=== PATIENT | male | born 1960 | race Caucasian/White ===

== ENCOUNTER → 2019-11-04 09:57 | Outpatient (BNVA) | payer BC, SELFPAY | PROVIDERS: Family Provider Family Medicine; PCP Family Medicine; Visit Provider Family Medicine | DX: E11.9 Type 2 diabetes mellitus without complications (principal); Z79.4 Long term (current) use of insulin | CPT/HCPCS: 80053; 80061; 82044; 83036; 85025 ==

== ENCOUNTER → 2020-07-15 08:46 | Outpatient (BNVA) | payer BC, SELFPAY | PROVIDERS: Family Provider Family Medicine; PCP Family Medicine; Visit Provider Family Medicine | DX: E11.65 Type 2 diabetes mellitus with hyperglycemia (principal); I50.32 Chronic diastolic (congestive) heart failure; Z79.4 Long term (current) use of insulin | CPT/HCPCS: 80053; 80061; 81015; 82043; 83036 ==

== ENCOUNTER 2021-12-02 15:01 | Observation (INO) | payer MEDICARE, SELFPAY ==
[2021-12-02] VITALS (22 sets, daily range): BP systolic 55–143; BP diastolic 36–98; PULSE 64–124; RESP 22–32; TEMP 36.3; O2SAT 92–100; BMI 66.2
--- NOTE | 2021-12-02 15:10 | XR_ITS ---
WS: [id number] XR chest 1V portable [id number] REASON FOR EXAM: sob FINDINGS: Mild tortuosity of the thoracic aorta. The heart size at the upper limits of normal. Calcified granulomatous disease in both hemithoraces. There are coarse reticular interstitial densities throughout both lungs with ill-defined areas of elie ency. No acute pulmonary parenchymal or pleural abnormality is identified. Hemidiaphragms are somewhat flattened. XR/XR chest 1V portable [id number] IMPRESSION: No acute chest abnormality. Borderline cardiomegaly. Central lobar emphysema.
[2021-12-02 15:23] LABS: Basophils % 0.2 %; Eosinophils % 0.3 %; Hematocrit 34.6 % (42.0-52.0); Lymphocytes # 1.2 10^3/uL (0.8-4.8); Lymphocytes % 9.5 %; Mean Corpuscular HGB Conc 28.9 g/dL (30.0-36.0); Mean Corpuscular Hemoglobin 29.7 pg (28.0-34.0); Mean Corpuscular Volume 102.7 fl (80-94); Mean Platelet Volume 11.1 fL (7.4-10.4); Monocytes # 0.7 10^3/uL (0.2-0.9); Monocytes % 5.2 %; Neutrophils # 10.62 10^3/uL (1.8-7.7); Neutrophils % 84.5 %; Nucleated Red Blood Cells % 0 %; Platelet Count 231 10^3/cmm (130-400); Red Blood Count 3.37 10^6/uL (4.1-5.3); Red Cell Distribution Width 15.1 % (12.1-15.1); White Blood Count 12.6 10^3/uL (4.0-10.0)
--- NOTE | 2021-12-02 15:41 | W.ED.SOB ---
HPI - SOB/Dyspnea General: Chief Complaint: Shortness of Breath/Dyspnea Stated Complaint: SOB, CHF, COPD Time Seen by Provider: 12/02/21 15:06 Source: patient and EMS Mode of arrival: EMS Limitations: no limitations History of Present Illness: HPI Narrative: 61-year-old male who states that he has been having some shortness of breath worsening today. Patient is morbidly obese does wear 4 L of oxygen at baseline due to his obesity along with congestive heart failure states that some increased swelling patient received 80 mg Lasix in route by EMS they states that it when he got him at home his pulse ox was in the low 80s they turned it up to 6 he denies any cough or fever denies any chest pain. Associated symptoms: Deny abdominal pain, chest pain, fever(s), nausea or vomiting Review of Systems Const: Denies: fever(s), chills, body aches or change in appetite Eyes: Denies: blurry vision or eye discomfort ENMT: Denies: throat pain or dental pain Card: Denies: chest pain Resp: Reports: dyspnea GI: Denies: abdominal pain, nausea, vomiting or diarrhea : Denies: dysuria Musc: Reports: extremity swelling Skin/Breast: Denies: rash Neuro: Denies: headache(s) Psych: Denies: depression Jose/Lymph: Denies: easy bruising All/Imm: Denies: urticaria PFSH ED PFSH: Medical History Atrial fibrillation with controlled ventricular response Benign essential HTN CHF (congestive heart failure) Dyslipidemia Morbid obesity SHERLEY (obstructive sleep apnea) Uncontrolled type 2 diabetes mellitus, with long-term current use of insulin Surgical History S/P appendectomy Family History Mother CAD (coronary artery disease) Atrial fibrillation Father Lung disease Social History Smoking and tobacco status: former smoker Alcohol intake: former Lives independently: Yes Household members: significant other Physical Exam Const: COMMON NORMALS: patient oriented x3 NUTRITIONAL APPEARANCE: obese HENMT: COMMON NORMALS: normocephalic and atraumatic HEAD & SCALP: normocephalic and atraumatic Eye: COMMON NORMALS: Equal, round and reactive pupils present and EOMs intact bilaterally PUPIL: Yes Equal, round and reactive pupils present Neck/C-Spine: COMMON NORMALS: full ROM and supple Chest: COMMONS NORMALS: normal inspection of the chest and normal palpation of entire chest wall Resp: COMMON NORMALS: normal respiratory effort, No retractions, No use of accessory muscles and clear to auscultation bilaterally AUSCULTATION: clear to auscultation bilaterally Cardio: COMMON NORMALS: regular rate, regular rhythm and No murmurs present (Cardio) RATE: regular rate RHYTHM: regular rhythm GI: COMMON NORMALS: Normal to inspection, nondistended, normoactive bowel sounds present, Soft to palpation, non-tender and no masses PALPATION: Yes Soft to palpation Extremity: COMMON NORMALS: full ROM NARRATIVE EXTREMITY EXAM: 2+ edema to lower ex Neuro: COMMON NORMALS: patient oriented x3, moves all extremities and no focal motor deficits Psych: COMMON NORMALS: mental status grossly normal, Normal thought process present and cooperative THOUGHT PROCESS: Normal thought process present Skin: COMMON NORMALS: no rashes or lesions noted and no wounds GENERAL SKIN EXAM: no rashes or lesions noted Course Vital Signs: Vital signs: Vital Signs Pulse Rate 95 12/02/21 16:00 Respiratory Rate 25 H 12/02/21 16:00 Blood Pressure 98/80 12/02/21 16:00 Pulse Oximetry 94 12/02/21 15:45 MDM - SOB/Dyspnea Medical Decision Making Patient presents here with CHF with hypercapnic respiratory failure. His CO2 here is [address] him on BiPAP he is awake and alert he is likely hypercapnic at baseline but he does have some slight acidosis so I do believe he requires admission at this time he has been well-appearing here no signs of pneumonia spoke to hospitalist will admit. Lab Data : 12/02/21 15:14 12/02/21 15:14 Labs/Radiology: Radiology Impressions Chest X-Ray 12/02/21 15:10 IMPRESSION: No acute chest abnormality. Borderline cardiomegaly. Central lobar emphysema. Laboratory Results WBC 12.6 10^3/uL (4.0-10.0) H 12/02/21 15:14 RBC 3.37 10^6/uL (4.1-5.3) L 12/02/21 15:14 Hgb 10.0 g/dL (11.7-16.6) L 12/02/21 15:14 Hct 34.6 % (42.0-52.0) L 12/02/21 15:14 MCV 102.7 fl (80-94) H 12/02/21 15:14 MCH 29.7 pg (28.0-34.0) 12/02/21 15:14 MCHC 28.9 g/dL (30.0-36.0) L 12/02/21 15:14 RDW 15.1 % (12.1-15.1) 12/02/21 15:14 Plt Count 231 10^3/cmm (130-400) 12/02/21 15:14 MPV 11.1 fL (7.4-10.4) H 12/02/21 15:14 Neut % (Auto) 84.5 % 12/02/21 15:14 Lymph % (Auto) 9.5 % 12/02/21 15:14 [place] % (Auto) 5.2 % 12/02/21 15:14 Eos % (Auto) 0.3 % 12/02/21 15:14 Baso % (Auto) 0.2 % 12/02/21 15:14 Neut # (Auto) 10.62 10^3/uL (1.8-7.7) H 12/02/21 15:14 Lymph # (Auto) 1.2 10^3/uL (0.8-4.8) 12/02/21 15:14 [place] # (Auto) 0.7 10^3/uL (0.2-0.9) 12/02/21 15:14 Eos # (Auto) 0.0 10^3/uL (0.0-0.8) 12/02/21 15:14 Baso # (Auto) 0.0 10^3/uL (0.0-0.1) 12/02/21 15:14 Nucleated RBC % (auto) 0 % 12/02/21 15:14 Nucleated RBCs # 0.0 /100WBC 12/02/21 15:14 PT 14.50 SECONDS (12.1-14.9) 12/02/21 15:14 INR 1.10 (0.8-1.2) 12/02/21 15:14 Specimen Type Arterial 12/02/21 17:01 Sample Site Radial, right 12/02/21 17:01 ABG pH 7.32 (7.35-7.45) L 12/02/21 17:01 ABG pCO2 95.7 mmHg (35-45) H* 12/02/21 17:01 ABG pO2 73.7 mmHg (80.0-100.0) L 12/02/21 17:01 ABG HCO3 49.5 mmol/L (22-26) H 12/02/21 17:01 ABG Base Excess 19.6 mmol/L (-2.0-2.0) H 12/02/21 17:01 Jax Test Pos 12/02/21 17:01 Hematocrit 31.8 % (42-52) L 12/02/21 17:01 O2 Delivery Device Nc 12/02/21 17:01 O2 Liters/Min 4.0 % 12/02/21 17:01 FiO2 36.0 % 12/02/21 17:01 Printing Roller Handler ID Gd 12/02/21 17:01 Sodium 143 mmol/L (136-145) 12/02/21 15:14 Potassium 4.9 mmol/L (3.5-5.1) 12/02/21 15:14 Chloride 93 mmol/L (98-107) L 12/02/21 15:14 Carbon Dioxide 45 mmol/L (22-29) H* 12/02/21 15:14 Anion Gap 9.9 (5-19) 12/02/21 15:14 BUN 21 mg/dL (8-23) 12/02/21 15:14 Creatinine 1.0 mg/dL (0.7-1.2) 12/02/21 15:14 GFR Calculation 75.7 mL/min (90-130) L 12/02/21 15:14 Glucose 244 mg/dL (65-115) H 12/02/21 15:14 Calculated Osmolality 307 mOsm/kg (285-295) H 12/02/21 15:14 Calcium 9.3 mg/dL (8.5-10.5) 12/02/21 15:14 Total Bilirubin 0.2 mg/dL (0.15-1.2) 12/02/21 15:14 AST 14 U/L (0-40) 12/02/21 15:14 ALT 20 U/L (0-41) 12/02/21 15:14 Alkaline Phosphatase 104 IU/L (40-130) 12/02/21 15:14 Troponin T Baseline 22 ng/L (0-15) H 12/02/21 15:14 NT-Pro-B Natriuret Pep 1322 pg/mL (0-125) H 12/02/21 15:14 Total Protein 7.1 g/dL (6.6-8.7) 12/02/21 15:14 Albumin 3.7 g/dL (3.5-5.2) 12/02/21 15:14 Globulin 3.4 g/dL (1.3-4.6) 12/02/21 15:14 EKG Data EKG 1: I personally reviewed and interpreted this EKG as follows: EKG Interpretation Date: 12/02/21 EKG interpretation time: 15:21 Interpretation: afib with rvr hr [address] or t wave abnormalities qrs 142 qtc 367 Discharge Plan Discharge Patient Disposition: Admitted As Inpatient Clinical Impression: Acute hypercapnic respiratory failure, CHF (congestive heart failure) Condition: Stable Coding Level of Care Code ED Front Counter Attendant for Chg Fwd Exam Comprehensive
[2021-12-02 15:52] LABS: Alanine Aminotransferase 20 U/L (0-41); Albumin Level 3.7 g/dL (3.5-5.2); Alkaline Phosphatase 104 IU/L (40-130); Anion Gap 9.9 (5-19); Aspartate Amino Transferase 14 U/L (0-40); Blood Urea Nitrogen 21 mg/dL (8-23); Calcium 9.3 mg/dL (8.5-10.5); Chloride 93 mmol/L (98-107); Globulin 3.4 g/dL (1.3-4.6); Glomerular Filtration Rate 75.7 mL/min (90-130); Glucose 244 mg/dL (65-115); NT Pro B Type Natriuretic Pept 1322 pg/mL (0-125); Osmolality Calculated 307 mOsm/kg (285-295); Potassium 4.9 mmol/L (3.5-5.1); Sodium 143 mmol/L (136-145); Total Bilirubin 0.2 mg/dL (0.15-1.2); Total Protein 7.1 g/dL (6.6-8.7)
[2021-12-02 15:53] LABS: Troponin(5th) Baseline 22 ng/L (0-15)
--- NOTE | 2021-12-02 16:06 | PC.PHAR ---
pt state he takes care of his own medications-pt states he takes lisinopril 5mg hs ext med history shows last filled 12/01/21 30d/s for 10mg hs-pt states he stop taking his toujeo max u-300 on states he thinks he was having a reaction to it pt states he was taking levemir flextouch u-100-notes are made in the pharmacy comments
[2021-12-02 16:18] LABS: Carbon Dioxide 45 mmol/L (22-29)
[2021-12-02] MEDS: metoprolol tartrate 25 mg Tablet 50 MG PO (17:08)
[2021-12-02 17:15] LABS: ABG PCO2 95.7 mmHg (35-45); ABG PH Result 7.32 (7.35-7.45); Arterial Blood Gas Hematocrit 31.8 % (42-52); Base Excess ABG 19.6 mmol/L (-2.0-2.0); Blood Gas Allen Test Pos; Blood Gas Operator Identificat GD; Blood Gas Sample Site Radial, right; Blood Gas Sample Type Arterial; HCO3 ABG 49.5 mmol/L (22-26); Oxygen Device NC; PO2 ABG 73.7 mmHg (80.0-100.0)
--- NOTE | 2021-12-02 17:18 | ECG_ITS ---
[facility] Test Date: 2021-12-02 Pat Name: Wayne Nicholson Department: Room: Gender: Male Beauty Director: : 1960 Requested By: Danna Neves Order Number: [id number] Marcello MD: Gm Mathis M.D. Measurements Intervals [place] Rate: 98 P: [place]: QRS: 58 QRSD: 140 T: -60 QT: 337 QTc: 431 Interpretive Statements ATRIAL FIBRILLATION INTRAVENTRICULAR CONDUCTION DELAY [130+ ms QRS DURATION] Compared to ECG 12/02/2021 15:21:46 No significant changes Electronically Signed On 12-02-2021 18:37:59 CDT by Gm Mathis M.D. [email or web address] medical [email or web address]/[id number]
[2021-12-02 17:38] LABS: Troponin 5 2HR 23.35 ng/L (0-15)
[2021-12-02 17:43] LABS: Troponin 5 2HR Delta 1.35 ABS# (0-10)
--- NOTE | 2021-12-02 18:33 | PM.HP ---
Providers/Chief Complaint Admitting Physician: Francisco Walls MD Primary Care Provider: Mason Giles MD Chief Complaint: SOB, CHF, COPD History of Present Illness Wayne Nicholson is a 61 year old male who has established history of significant COPD, noncompliance, sleep apnea, oxygen dependent uses 4 L of oxygen at home, ex-smoker, her fianc? is her caregiver present to the hospital for confusion and shortness of breath. As per her caregiver he has been experiencing on and off/passing of any mentation, confusion spells without any fever. He has been experiencing dry cough, worsening of shortness of breath, pursed lip breathing. He walks on his own without any assistance, very noncompliant. In the ER he was diagnosed with hypercapnic respiratory failure with metabolic encephalopathy He was put on BiPAP to Chest x-ray unremarkable Hypercapnic respiratory failure Poorly controlled diabetes Cor pulmonale, right-sided heart failure Review of Systems Const: Reports: body aches and malaise Eyes: Denies: change in vision ENMT: Denies: throat pain Card: Reports: dyspnea on exertion and orthopnea; Denies: chest pain Resp: Denies: dyspnea GI: Denies: abdominal pain : Denies: flank pain Musc: Denies: neck pain Skin/Breast: Reports: lesions Neuro: Denies: headache(s) Psych: Reports: anxiety Endo: Denies: polyuria Jose/Lymph: Denies: easy bruising All/Imm: Denies: urticaria Medications/Allergies Home Medications Medication Instructions Recorded Confirmed Last Taken Type multivitamin 1 tab PO DAILY 05/15/19 12/02/21 Unknown History potassium chloride 20 mEq 20 meq PO BID #180 tabs 07/15/20 12/02/21 12/01/21 Rx tablet,extended release budesonide-formoterol HFA 160 2 puff inhalation Q12H #10.2 grams 08/10/20 12/02/21 Unknown Rx mcg-4.5 mcg/actuation aerosol inhaler (Symbicort) albuterol sulfate 2.5 mg (3 mL) inhalation QID PRN 08/17/20 12/02/21 12/02/21 Rx shortness of breath or wheezing #75 mL concentrator and homefill oxygen #1 ea 09/30/20 12/02/21 Unknown Rx system metoprolol tartrate 100 mg tablet 100 mg PO BID #60 tabs 11/01/20 12/02/21 12/02/21 Rx blood sugar diagnostic #100 ea 03/10/21 12/02/21 Unknown Rx pen needle, diabetic 29 gauge x #100 ea 03/10/21 12/02/21 Unknown Rx 1/2 (Comfort EZ Pen Kimberly) blood-glucose meter (OneTouch #1 ea 03/14/21 12/02/21 Unknown Rx Ultra2 Meter) lancets (OneTouch UltraSoft #100 ea 03/14/21 12/02/21 Unknown Rx Lancets) metformin 1,000 mg tablet 1,000 mg PO BID #180 tabs 04/18/21 12/02/21 12/02/21 Rx blood-glucose meter,continuous #1 ea 06/07/21 12/02/21 Unknown Rx (Dexcom G6 Paint Mixer Machine) blood-glucose sensor (Dexcom G6 #3 ea 06/07/21 12/02/21 Unknown Rx Sensor) blood-glucose transmitter (Dexcom #1 ea 06/07/21 12/02/21 Unknown Rx G6 Transmitter) insulin glargine U-300 conc 300 See Rx Instructions SUBCUT DAILY 09/05/21 12/02/21 11/29/21 Rx unit/mL (3 mL) subcutaneous pen #18 mL (Toujeo Max U-300 SoloStar) apixaban 5 mg tablet (Eliquis) 5 mg PO BID #180 tabs 10/27/21 12/02/21 12/02/21 08:00 Rx albuterol sulfate 90 mcg/actuation 2 puff inhalation Q6H PRN 12/02/21 12/02/21 Unknown History aerosol inhaler (ProAir HFA) Shortness Of Breath atorvastatin 80 mg tablet 80 mg PO QAM 12/02/21 12/02/21 12/02/21 History cholecalciferol (vitamin D3) 50 100 mcg PO DAILY 12/02/21 12/02/21 Unknown History mcg (2,000 unit) tablet (Vitamin D3) digoxin 250 mcg (0.25 mg) tablet 250 mcg PO BEDTIME 12/02/21 12/02/21 12/01/21 History duloxetine 30 mg capsule,delayed 30 mg PO BEDTIME 12/02/21 12/02/21 12/01/21 History release furosemide 40 mg tablet (Lasix) 80 mg PO QAM 12/02/21 12/02/21 12/02/21 History glyburide 5 mg tablet 5 mg PO QAM 12/02/21 12/02/21 12/02/21 History isosorbide mononitrate 30 mg 15 mg PO QAM 12/02/21 12/02/21 12/02/21 History tablet,extended release 24 hr lisinopril 10 mg tablet 5 mg PO BEDTIME 12/02/21 12/02/21 12/01/21 History spironolactone 25 mg tablet 25 mg PO QAM 12/02/21 12/02/21 12/02/21 History Allergies Allergy/AdvReac Type Severity Reaction Status Date / Time No Known Allergies Allergy Verified 12/02/21 15:54 PFSH Acute PFSH: Medical History Atrial fibrillation with controlled ventricular response Benign essential HTN CHF (congestive heart failure) Dyslipidemia Morbid obesity SHERLEY (obstructive sleep apnea) Uncontrolled type 2 diabetes mellitus, with long-term current use of insulin Surgical History S/P appendectomy Family History Mother CAD (coronary artery disease) Atrial fibrillation Father Lung disease Social History Smoking and tobacco status: former smoker Alcohol intake: former Lives independently: Yes Household members: significant other Vitals/I&O/Wt Last Vital Signs Pulse 64 12/02/21 18:02 Resp 29 H 12/02/21 17:45 BP 85/65 12/02/21 17:30 Pulse Ox 94 12/02/21 18:02 FiO2 35 12/02/21 18:02 Weight last 48 hrs Weight 215.456 kg Physical Exam Narrative: Patient was on BiPAP Morbidly obese Morbid obesity with excessive abdominal folds 2+ pitting edema of lower extremity Unkept appearance Poor airflow of lungs bilaterally Mild wheezing Nonfocal neuro exam Family at the bedside Data : 12/03/21 04:36 12/03/21 04:36 A&P Assessment and plan (1) Acute hypercapnic respiratory failure: Status: Acute (2) CHF (congestive heart failure): Status: Acute (3) Dyslipidemia: Status: Acute (4) Diabetic neuropathy: Status: Acute (5) Bilateral leg weakness: Status: Acute (6) Atrial fibrillation with controlled ventricular response: Status: Acute (7) Uncontrolled type 2 diabetes mellitus, with long-term current use of insulin: Status: Chronic Plan Acute hypercapnic respiratory failure with underlying chronic hypoxic hypercarbic respiratory failure This most likely related to noncompliance He does not use his CPAP He has had multiple sleep studies in the past Will conduct overnight pulse ox study Hypercapnia He might qualify for BiPAP Cor pulmonale Bilateral extremity edema Check BNP, Continue high-dose Lasix Hypertension: Continue lisinopril History of A. fib, continue digoxin and Eliquis Check digoxin level Continue metoprolol Poorly controlled type 2 diabetes check A1c level, high-dose insulin to be continued with sliding scale Hold metformin Full code Noncompliant Consistent carb diet Arrange BiPAP, high risk case manager will be updated Attestations Medical Necessity Statement*: Aspirin discharge within 48 hours for management of hypercapnic respiratory failure Time Spent in Patient Care: 40 Coding Level of Care Code Acute Epic [facility] Fwd Diagnoses Acute hypercapnic respiratory failure J96.02 CHF (congestive heart failure) I50.9 Dyslipidemia E78.5 Diabetic neuropathy E11.40 Bilateral leg weakness R29.898 Atrial fibrillation with controlled ventricular response I48.91 Uncontrolled type 2 diabetes mellitus, with long-term current use of insulin E11.65; Z79.4
[2021-12-02 19:10] LABS: Procalcitonin 0.08 ng/mL (0-0.5)
[2021-12-02] MEDS: FUROsemide 10 mg/mL SDV 10mL 60 MG IVP (20:37)
[2021-12-02] MEDS: ipratropium-albuterol 3 mL Neb INHALATION (20:46)
[2021-12-02 20:58] LABS: Glucose Point of Care 254 mg/dL (70-110)
--- NOTE | 2021-12-02 21:10 | ECG_ITS ---
[facility] Test Date: 2021-12-02 Pat Name: Wayne Nicholson Department: Room: Gender: Male Glass Furnace Operator: : 1960 Requested By: Danna Neves Order Number: [id number] Marcello MD: Gm Mathis M.D. Measurements Intervals [place] Rate: 117 P: [place]: QRS: 57 QRSD: 142 T: 0 QT: 298 QTc: 416 Interpretive Statements ATRIAL FIBRILLATION WITH RAPID VENTRICULAR RESPONSE INTRAVENTRICULAR CONDUCTION DELAY [130+ ms QRS DURATION] Compared to ECG 01/01/2018 09:15:15 Intraventricular conduction delay now present Incomplete right bundle-branch block no longer present T-wave abnormality no longer present Electronically Signed On 12-02-2021 18:37:13 CDT by Gm Mathis M.D. [email or web address]/store/[id number]
[2021-12-02] MEDS: metoprolol tartrate 25 mg Tablet PO (21:49)
[2021-12-02] MEDS: digoxin 250 mcg Tablet PO (21:50)
[2021-12-02] MEDS: duloxetine 30 mg Capsule PO (21:52)
[2021-12-02] MEDS: potassium chloride ER 20 mEq Tablet PO (21:53)
[2021-12-02 22:22] LABS: Troponin 5 6HR 25.86 ng/L (0-15)
[2021-12-02 22:24] LABS: Troponin 5 6HR Delta 3.86 ng/L (0-12)
[2021-12-02] MEDS: insulin glargine 100 units/1 mL 80 UNIT SUBCUT (22:24)
[2021-12-03] VITALS (11 sets, daily range): BP systolic 108–131; BP diastolic 61–86; PULSE 69–115; RESP 18–26; TEMP 36.6–36.9; O2SAT 91–97
[2021-12-03 04:44] LABS: ABG PH Result 7.39 (7.35-7.45); Arterial Blood Gas Hematocrit 30.5 % (42-52); Base Excess ABG 19.3 mmol/L (-2.0-2.0); Blood Gas Allen Test Pos; Blood Gas Sample Type Arterial; HCO3 ABG 47.4 mmol/L (22-26); PO2 ABG 59.8 mmHg (80.0-100.0)
[2021-12-03 04:45] LABS: Blood Gas Operator Identificat MONRO; Oxygen Device NC
[2021-12-03 04:48] LABS: Blood Gas Sample Site Radial, left
[2021-12-03 04:55] LABS: Basophils % 0.2 %; Hematocrit 36.2 % (42.0-52.0); Hemoglobin 10.4 g/dL (11.7-16.6); Lymphocytes # 0.8 10^3/uL (0.8-4.8); Lymphocytes % 6.2 %; Mean Corpuscular HGB Conc 28.7 g/dL (30.0-36.0); Mean Corpuscular Hemoglobin 29.5 pg (28.0-34.0); Mean Corpuscular Volume 102.8 fl (80-94); Mean Platelet Volume 11.7 fL (7.4-10.4); Monocytes # 0.4 10^3/uL (0.2-0.9); Monocytes % 3.2 %; Neutrophils # 11.97 10^3/uL (1.8-7.7); Neutrophils % 90.1 %; Nucleated Red Blood Cells % 0 %; Platelet Count 246 10^3/cmm (130-400); Red Blood Count 3.52 10^6/uL (4.1-5.3); Red Cell Distribution Width 15.2 % (12.1-15.1); White Blood Count 13.3 10^3/uL (4.0-10.0)
[2021-12-03] MEDS: ipratropium-albuterol 3 mL Neb INHALATION ×2 (04:55→08:30)
[2021-12-03 05:21] LABS: Anion Gap 8.2 (5-19); Blood Urea Nitrogen 28 mg/dL (8-23); C Reactive Protein 26.6 mg/L (0.0-4.9); Calcium 9.2 mg/dL (8.5-10.5); Chloride 91 mmol/L (98-107); Glomerular Filtration Rate 67.8 mL/min (90-130); Glucose 342 mg/dL (65-115); Magnesium 2.3 mg/dL (1.7-2.3); Osmolality Calculated 309 mOsm/kg (285-295); Phosphorus 3.5 mg/dL (2.5-4.5); Potassium 5.2 mmol/L (3.5-5.1); Sodium 140 mmol/L (136-145)
[2021-12-03 05:27] LABS: Carbon Dioxide 46 mmol/L (22-29)
--- NOTE | 2021-12-03 06:23 | PC.NURSE ---
patient having difficulty keeping conversation straight, ex: pt asked where we would like his 02 sat to be and nurse replied 92 or better, later patient confrontational with respiratory therapist stating I am trying to to breath to keep that o2 up lie you wanted, I am trying, nurse intervened and reminded of how conversation really was and who he had the conversation with, patient had been restless throughout the night, moving from one recliner to another causing 02 sat to drop in 70 s, and nursing staff in room with patient to ensure safety, patient got a small amount of sleep and when he awakened he was talking on his phone stating that no one has been checking on him. nurse inquired about conversation and patient stated I was just trying to call my girlfriend but I can't reach her patient wore Bipap for 20 minutes and began removing bipap after that, patient refused to wear bipap due feeling closed in, extensive education given related to effectiveness of bipap and patient's need to wear it, continue to refuse. 02 sat ranges from 88-92 while eyes are closed an drops to 70's when awake, patient mouth breathing. patient wanting sausage, eggs, and toast 4 pieces each for breakfast. patient drank 1100 ml of fluids since admission to floor. nurse educate aout CHF and need to modify and restrict fluid intake.
[2021-12-03 07:04] LABS: Glucose Point of Care 278 mg/dL (70-110)
[2021-12-03 07:12] LABS: ABG PCO2 78.3 mmHg (35-45)
[2021-12-03] MEDS: FUROsemide 10 mg/mL SDV 10mL 60 MG IVP (08:46)
[2021-12-03] MEDS: insulin lispro 100 unit/1 mL SUBCUT ×3 (08:50→17:05)
[2021-12-03] MEDS: cefTRIAXone 1,000 MG in sodium chloride 0.9% (plus) 50 ML 100 MG IV (08:52)
[2021-12-03] MEDS: insulin glargine 100 units/1 mL 90 UNIT SUBCUT (09:01)
[2021-12-03] MEDS: sennosides-docusate Tablet 1 TAB PO (09:01)
[2021-12-03] MEDS: metoprolol tartrate 25 mg Tablet PO ×2 (09:01→17:06)
[2021-12-03] MEDS: apixaban 5 mg Tablet PO ×2 (09:08→17:08)
--- NOTE | 2021-12-03 11:22 | PC.NURSE ---
Pt refuses bi-pap
[2021-12-03 11:41] LABS: Glucose Point of Care 339 mg/dL (70-110)
--- NOTE | 2021-12-03 13:32 | P.PN_ITS ---
Subjective Subjective: Patient is back to his baseline as per his fianc?e was at the bedside Patient wants to go home I have convince patient to stay 1 more day at least ideally he should stay until Sunday, I have updated case investigator to arrange BiPAP for him Overnight significant hypoxia noted He is hypercapnic He is at risk of recurrent admissions and respiratory failure which could be detrimental to his health, it can cause cardiac arrest if it stays untreated Vitals/I&O/Wt Last Vital Signs Temp 98.2 F 12/03/21 11:51 Pulse 115 H 12/03/21 11:51 Resp 22 H 12/03/21 11:51 BP 131/61 12/03/21 11:51 Pulse Ox 92 12/03/21 11:51 O2 Del Method 12/03/21 11:51 O2 Flow Rate 4 12/03/21 08:27 FiO2 35 12/02/21 23:45 12/02/21 12/03/21 12/03/21 22:59 06:59 14:59 Intake Total 120 / 120 1140 / 1260 890 / 890 Balance 120 / 120 1140 / 1260 890 / 890 Weight last 48 hrs Weight 215.456 kg Physical Exam Narrative: Morbidly obese 2+ pitting edema Awake and alert Patient is very anxious and wants to go home Abdomen is soft, morbidly obese Nonfocal neuro exam Currently on 4 L nasal cannula NITO LUO Able to comprehend my questions and answer appropriately Data : 12/03/21 04:36 12/03/21 04:36 A&P Assessment and plan (1) Acute hypercapnic respiratory failure: Status: Acute (2) CHF (congestive heart failure): Status: Acute (3) Uncontrolled type 2 diabetes mellitus, with long-term current use of insulin: Status: Chronic (4) Atrial fibrillation with controlled ventricular response: Status: Acute (5) Diabetic neuropathy: Status: Acute (6) Bilateral leg weakness: Status: Acute (7) CKD stage 2 due to type 2 diabetes mellitus: Status: Acute Plan Acute hypercapnic respiratory failure with underlying chronic hypoxic hypercarbic respite failure Improved No active encephalopathy related to hypercapnia No active signs of infection Patient would qualify for BiPAP, case investigator updated BiPAP active wheezing, however poor airflow Will need outpatient pulmonary follow-up Cor pulmonale I will give him a dose of acetazolamide today and then alternate with Lasix Poorly controlled type 2 diabetes discontinue IV steroids, check A1c level Consistent carb diet Discontinue cardiac diet Patient is noncompliant wants to go home I did tell him that it will be AGAINST MEDICAL ADVICE I would not discharge him over the weekend A. fib RVR continue Eliquis, metoprolol and digoxin Full code Attestations Medical Necessity Statement*: Discharge on Sunday Time Spent in Patient Care: 40 Coding Level of Care Code Acute Sash Installer for g Fwd Diagnoses Acute hypercapnic respiratory failure J96.02 CHF (congestive heart failure) I50.9 Uncontrolled type 2 diabetes mellitus, with long-term current use of insulin E11.65; Z79.4 Atrial fibrillation with controlled ventricular response I48.91 Diabetic neuropathy E11.40 Bilateral leg weakness R29.898 CKD stage 2 due to type 2 diabetes mellitus E11.22; N18.2
[2021-12-03 14:06] LABS: Digoxin 1.3 ng/mL (0.6-1.2)
[2021-12-03] MEDS: acetaZOLAMIDE 250 mg Tablet 500 MG PO (14:10)
[2021-12-03 14:12] LABS: Estmated Average Glucose 214; Hemoglobin A1C 9.1 % (4.0-6.0)
--- NOTE | 2021-12-03 15:08 | PC.NURSE ---
pts significant other requested anxiety med for pt. pt stated, i don't want or need anything for anxiety.
[2021-12-03 16:49] LABS: Glucose Point of Care 349 mg/dL (70-110)
[2021-12-03 20:09] LABS: Glucose Point of Care 233 mg/dL (70-110)
[2021-12-03] MEDS: digoxin 250 mcg Tablet PO (22:22)
[2021-12-03] MEDS: duloxetine 30 mg Capsule PO (22:23)
[2021-12-03] MEDS: insulin glargine 100 units/1 mL 80 UNIT SUBCUT (22:23)
[2021-12-03] MEDS: potassium chloride ER 20 mEq Tablet PO (22:23)
[2021-12-04] VITALS (11 sets, daily range): BP systolic 108–135; BP diastolic 71–80; PULSE 65–109; RESP 16–19; TEMP 36.2–37; O2SAT 93–100
[2021-12-04 04:47] LABS: ABG PH Result 7.29 (7.35-7.45); Arterial Blood Gas Hematocrit 35.1 % (42-52); Base Excess ABG 12.7 mmol/L (-2.0-2.0); Blood Gas Allen Test Pos; Blood Gas Sample Site Radial, left; Blood Gas Sample Type Arterial; HCO3 ABG 42.5 mmol/L (22-26); Oxygen Device NC; PO2 ABG 81.9 mmHg (80.0-100.0)
[2021-12-04 04:58] LABS: ABG PCO2 87.8 mmHg (35-45)
[2021-12-04 06:24] LABS: Basophils # 0.1 10^3/uL (0.0-0.1); Basophils % 0.6 %; Eosinophils # 0.1 10^3/uL (0.0-0.8); Eosinophils % 1.3 %; Hematocrit 35.7 % (42.0-52.0); Hemoglobin 10.9 g/dL (11.7-16.6); Lymphocytes # 2.5 10^3/uL (0.8-4.8); Lymphocytes % 23.7 %; Mean Corpuscular HGB Conc 30.5 g/dL (30.0-36.0); Mean Corpuscular Hemoglobin 29.2 pg (28.0-34.0); Mean Corpuscular Volume 95.7 fl (80-94); Mean Platelet Volume 11.3 fL (7.4-10.4); Monocytes # 0.9 10^3/uL (0.2-0.9); Monocytes % 8.1 %; Neutrophils # 7.02 10^3/uL (1.8-7.7); Nucleated Red Blood Cells % 0 %; Platelet Count 253 10^3/cmm (130-400); Red Blood Count 3.73 10^6/uL (4.1-5.3); Red Cell Distribution Width 15.2 % (12.1-15.1); White Blood Count 10.6 10^3/uL (4.0-10.0)
[2021-12-04 06:47] LABS: Glucose Point of Care 112 mg/dL (70-110)
[2021-12-04 06:49] LABS: Anion Gap 9.9 (5-19); Blood Urea Nitrogen 27 mg/dL (8-23); Calcium 9.3 mg/dL (8.5-10.5); Chloride 97 mmol/L (98-107); Glomerular Filtration Rate 75.7 mL/min (90-130); Glucose 109 mg/dL (65-115); Osmolality Calculated 304 mOsm/kg (285-295); Potassium 3.9 mmol/L (3.5-5.1); Sodium 144 mmol/L (136-145)
[2021-12-04 07:10] LABS: Carbon Dioxide 41 mmol/L (22-29)
[2021-12-04] MEDS: sennosides-docusate Tablet 1 TAB PO (08:53)
[2021-12-04] MEDS: metoprolol tartrate 25 mg Tablet PO ×2 (08:53→17:28)
[2021-12-04] MEDS: apixaban 5 mg Tablet PO ×2 (08:53→17:29)
[2021-12-04] MEDS: insulin glargine 100 units/1 mL 90 UNIT SUBCUT (08:54)
[2021-12-04 11:02] LABS: Glucose Point of Care 186 mg/dL (70-110)
--- NOTE | 2021-12-04 11:51 | P.PN_ITS ---
Subjective Subjective: This morning patient is awake and alert Sitting in a recliner As per the nursing staff he only used BiPAP for 3 hours last night I did encourage patient to stay compliant He is agreeable to stay 1 more day, we are in process of arranging BiPAP for him BiPAP settings 20/10 FiO2 40%, respirate 14 Vitals/I&O/Wt Last Vital Signs Temp 97.4 F L 12/04/21 07:48 Pulse 86 12/04/21 08:00 Resp 16 12/04/21 08:00 BP 135/78 12/04/21 07:48 Pulse Ox 100 12/04/21 08:00 O2 Del Method 12/04/21 08:00 O2 Flow Rate 4 12/04/21 08:00 FiO2 35 12/04/21 02:40 12/03/21 12/04/21 12/04/21 22:59 06:59 14:59 Intake Total 360 / 1250 240 / 240 Balance 360 / 1250 240 / 240 Weight last 48 hrs Weight 215.456 kg Physical Exam Narrative: Patient is morbidly obese Active signs of heart failure 2+ pitting edema of lower extremities Venous is dermatitis Awake and alert Nonfocal neuro exam Bilateral breath sounds diminished No active crackles or wheezing Abdomen is distended nontender Data : 12/04/21 06:12 12/04/21 06:12 A&P Assessment and plan (1) Acute hypercapnic respiratory failure: Status: Acute (2) CHF (congestive heart failure): Status: Acute (3) Dyslipidemia: Status: Acute (4) CKD stage 2 due to type 2 diabetes mellitus: Status: Acute (5) Diabetic neuropathy: Status: Acute (6) Bilateral leg weakness: Status: Acute (7) Atrial fibrillation with controlled ventricular response: Status: Acute (8) Benign essential HTN: Status: Chronic (9) Uncontrolled type 2 diabetes mellitus, with long-term current use of insulin: Status: Chronic Plan Contraction alkalosis improved with use of acetazolamide I would use Lasix for now onwards I would not change the balance that he has achieved Hypercapnic respiratory failure has not improved because of his noncompliance Encourage patient to stay compliant with his BiPAP Respiratory acidosis secondary to hypercapnia We are in process of arranging BiPAP for him It is very important for him to avoid readmissions and avoid CHF exacerbations Overnight significant hypoxemia noted on pulse ox, hypercapnia is evident Diastolic congestive heart failure exacerbation continue Lasix for now Full code Cardiac diet Type 2 diabetes hemoglobin A1c is 9.1 I have added Lantus to his sliding scale A. fib rate controlled, continue eliquis Discharge tomorrow once we set up BiPAP for him Attestations Medical Necessity Statement*: Continue medical management, discharge tomorrow Time Spent in Patient Care: 30 Coding Level of Care Code Acute Straight Cutter Machine for Chg Fwd Diagnoses Acute hypercapnic respiratory failure J96.02 CHF (congestive heart failure) I50.9 Dyslipidemia E78.5 CKD stage 2 due to type 2 diabetes mellitus E11.22; N18.2 Diabetic neuropathy E11.40 Bilateral leg weakness R29.898 Atrial fibrillation with controlled ventricular response I48.91 Benign essential HTN I10 Uncontrolled type 2 diabetes mellitus, with long-term current use of insulin E11.65; Z79.4
[2021-12-04] MEDS: insulin lispro 100 unit/1 mL SUBCUT ×2 (11:55→17:28)
[2021-12-04] MEDS: FUROsemide 40 mg Tablet PO (13:30)
[2021-12-04 17:17] LABS: Glucose Point of Care 219 mg/dL (70-110)
[2021-12-04] MEDS: ziprasidone 20 mg/mL SDV 10 MG IM (18:42)
[2021-12-04] MEDS: duloxetine 30 mg Capsule PO (20:30)
[2021-12-04] MEDS: potassium chloride ER 20 mEq Tablet 40 MEQ PO (20:31)
[2021-12-04 21:03] LABS: Glucose Point of Care 247 mg/dL (70-110)
[2021-12-04] MEDS: insulin glargine 100 units/1 mL 80 UNIT SUBCUT (21:05)
[2021-12-05] VITALS (8 sets, daily range): BP systolic 102–137; BP diastolic 67–81; PULSE 58–106; RESP 16–22; TEMP 36.3–37.1; O2SAT 86–98
[2021-12-05 06:25] LABS: Anion Gap 6.4 (5-19); Blood Urea Nitrogen 26 mg/dL (8-23); Calcium 9.3 mg/dL (8.5-10.5); Chloride 99 mmol/L (98-107); Glomerular Filtration Rate 75.7 mL/min (90-130); Glucose 76 mg/dL (65-115); Osmolality Calculated 302 mOsm/kg (285-295); Potassium 4.4 mmol/L (3.5-5.1); Sodium 144 mmol/L (136-145)
[2021-12-05 06:36] LABS: Glucose Point of Care 56 mg/dL (70-110)
[2021-12-05 06:37] LABS: Carbon Dioxide 43 mmol/L (22-29)
[2021-12-05 07:28] LABS: Glucose Point of Care 87 mg/dL (70-110)
[2021-12-05] MEDS: metoprolol tartrate 25 mg Tablet PO (09:08)
[2021-12-05] MEDS: FUROsemide 40 mg Tablet PO (09:09)
[2021-12-05] MEDS: apixaban 5 mg Tablet PO (09:09)
[2021-12-05] MEDS: sennosides-docusate Tablet 1 TAB PO (09:09)
[2021-12-05] MEDS: insulin glargine 100 units/1 mL 90 UNIT SUBCUT (09:12)
--- NOTE | 2021-12-05 10:35 | PC.CHAP ---
Pastoral Care Encounter/Spiritual Assessment Type of Contact [] Declined police and fire dispatcher visit [] Patient/Family/Request visit [] Outpatient visit [] Follow-up visit [] Physician referral [] Code/Alert x Routine visit [] Staff referral [] Actively dying [] Patient sleeping [] Family support [] [] Out of room [] Palliative care [] [] Receiving care in room [] Pre-surgical visit [] Trauma [] Long length of stay [] ICU visit [] Other: Relational/Emotional Strength [x] Patient feels connected with others/family/visitors/staff [] Distress [] Loneliness/isolation [] Abandonment Spirituality of Patient [x] Person of Ruchi [] Attends Congregational of their Ruchi [x] Believes in Prayer [] Reads Bible or Sabianism materials [] There are Spiritual issues to be addressed Nicking Machine Operator 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 [x] Prayer [x] Active listening [x] Non-anxious presence [] Spiritual/emotional support [] Crisis/trauma care [] Spiritual counseling [] Bereavement support [] Provided bereavement packet [] Provided Bible/devotional materials [] Provided toy/stuffed animal, coloring book to patient or family member [] Provided Communion [] Anointing/Alex [] Salvation [x] Completed spiritual assessment [] Other: Impact on Illness or Injury [] Angry [] Fearful [] Anxious [] Often cries [] Exhaustion [] Unable to work [] Unable to attend catholic [] Unable to walk/stand [] Unable to read [] Unable to drive [] Unable to eat/drink [] Unable to sleep [] Unable to be with family [] Patient intubated [] Other: Summary Time spent with patient 10 min
[2021-12-05 11:12] LABS: Arterial Blood Gas Hematocrit 35.8 % (42-52); Blood Gas Allen Test Pos; Blood Gas Operator Identificat GD; Blood Gas Sample Site Radial, left; Blood Gas Sample Type Arterial; Carboxyhemoglobin 1.3 %THgb (0.4-20.1); HCO3 ABG 39.2 mmol/L (22-26); HGB O2 Sat 96.5 % (95-100); Ionized Calcium Level - ABG 1.2 mmol/L (1.1-1.4); Methemoglobin 0.8 % (0.4-1.5); Oxygen Device NC; Oxygen Saturation ABG 98.5; Potassium Level - ABG 4.5 mmol/L (3.5-5.0); Total Hemoglobin 11.7 g/dL (14-18)
[2021-12-05 11:13] LABS: ABG PCO2 79.5 mmHg (35-45)
[2021-12-05 11:16] LABS: Glucose Point of Care 328 mg/dL (70-110)
[2021-12-05] MEDS: insulin lispro 100 unit/1 mL SUBCUT (11:34)
--- NOTE | 2021-12-05 12:55 | P.PN_ITS ---
Subjective Subjective: Postop this morning was awake and alert however attention span was very short, had a detailed family meeting with his sister and niece Requested ABG which showed hypercapnic respiratory failure Patient is noncompliant with his BiPAP I did tell the family that I would not discharge him from the hospital until BiPAP has been arranged at home which is very important to prevent life- threatening respiratory failure As per the family patient does not want intubation however agreeable for BiPAP use Vitals/I&O/Wt Last Vital Signs Temp 97.7 F 12/05/21 08:00 Pulse 88 12/05/21 12:00 Resp 18 12/05/21 12:00 BP 102/67 12/05/21 12:00 Pulse Ox 93 12/05/21 12:00 O2 Del Method 12/05/21 12:00 O2 Flow Rate 4 12/05/21 11:39 FiO2 30 12/05/21 11:35 12/04/21 12/05/21 12/05/21 22:59 06:59 14:59 Intake Total 300 / 660 120 / 120 Balance 300 / 660 120 / 120 Physical Exam Narrative: Patient is awake and alert Short attention span Able to answer my questions Bilateral breath sounds are diminished No active wheezing Abdomen distended Morbidly obese Family at the bedside No active asterixis Able to answer my questions appropriately Fluid overload Venous stasis dermatitis 2+ pitting edema Data : 12/04/21 06:12 12/05/21 05:18 A&P Assessment and plan (1) Acute hypercapnic respiratory failure: Status: Acute (2) CHF (congestive heart failure): Status: Acute (3) Dyslipidemia: Status: Acute (4) Bilateral leg weakness: Status: Acute (5) Atrial fibrillation with controlled ventricular response: Status: Acute (6) Uncontrolled type 2 diabetes mellitus, with long-term current use of insulin: Status: Chronic Plan Recurrent hypercapnic respiratory failure Underlying chronic hypoxia hypercapnia Patient is not showing signs of compensation yet Requested ABG today which showed hypercapnia Start him on BiPAP Family at the bedside Had detailed discussion regarding the importance of BiPAP and how is it causing cor pulmonale Continue Lasix Significant alkalosis He will need outpatient Dr. Tran follow-up It is very important that he gets home with BiPAP For now I will continue his management Awaiting approval of his BiPAP device Afebrile no leukocytosis Patient does not want intubation however he before chest compressions, ACLS drugs and defibrillation Okay discussed with the patient and his family Sisters might take him to [place] as he has been very noncompliant and gives hard time to his fianc?e Attestations Medical Necessity Statement*: Continue hospitalization Time Spent in Patient Care: 35 Coding Level of Care Code Acute Sand Cutting Machine Operator for Chg Fwd Diagnoses Acute hypercapnic respiratory failure J96.02 CHF (congestive heart failure) I50.9 Dyslipidemia E78.5 Bilateral leg weakness R29.898 Atrial fibrillation with controlled ventricular response I48.91 Uncontrolled type 2 diabetes mellitus, with long-term current use of insulin E11.65; Z79.4
[2021-12-05] MEDS: acetaminophen 500 mg Tablet PO (14:06)
[2021-12-05] MEDS: acetaZOLAMIDE 250 mg Tablet PO (14:06)
--- NOTE | 2021-12-05 15:53 | PM.DCS ---
Discharge Providers Date of Admission: 12/02/21 17:38 Date of Discharge: December 05, 2021 Attending Provider at Admission: Francisco Walls MD Attending Provider at Discharge: Francisco Walls MD Primary Care Provider: Mason Giles MD Diagnoses at Discharge Discharge Diagnosis (1) Acute hypercapnic respiratory failure: Status: Acute (2) CHF (congestive heart failure): Status: Acute (3) Dyslipidemia: Status: Acute (4) Bilateral leg weakness: Status: Acute (5) Atrial fibrillation with controlled ventricular response: Status: Acute (6) Uncontrolled type 2 diabetes mellitus, with long-term current use of insulin: Status: Chronic Reason for Visit Reason for Visit: SOB, CHF, COPD Hospital Course Hospital Course 61-year-old male morbidly obese carries history of oxygen dependent COPD, uses 4 to 5 L at baseline, presented with chief complaint of worsening confusion and shortness of breath. Patient was reluctant to come to the hospital however his fianc?e called 911. In the ER he was diagnosed with acute on chronic hypercapnic respiratory failure. He was put on BiPAP which improved his mentation. Patient was very reluctant and eager to go home however we convinced him to stay until his BiPAP gets approved. For his hypercapnia it is very important that he stays compliant with his BiPAP, multiple family meetings were done to emphasize the importance of BiPAP and compliance. He is at risk of readmissions. He is suffering from cor pulmonale for which she will take Lasix along potassium supplements. Patient at home has not been using his CPAP regularly. He has not seen any supervisor cabinetmaker. I will prescribe him Advair, Spiriva nebulizers, he does have very poor inspiratory flow, I do not think he will tolerate his inhalers, discontinue Symbicort, he does carry history of A. fib for which she requires Eliquis along AV chas blocking agent, high-dose insulin for poorly controlled type 2 diabetes I have discontinued glyburide for risk of hypoglycemia. Outpatient follow-up with Dr. Tran for pulmonary function test. He is at risk of readmissions. Counseling done, patient, his sister, his fianc?e and niece present in the room Physical Exam Narrative: Patient is awake and alert Short attention span Able to answer my questions Bilateral breath sounds are diminished No active wheezing Abdomen distended Morbidly obese Family at the bedside No active asterixis Able to answer my questions appropriately Fluid overload Venous stasis dermatitis 2+ pitting edema Discharge Data Studies Completed and Pending Completed Studies During Hospitalization Category Date Time Status XR chest 1V portable [id number] Stat Exams 12/02/21 15:10 Completed Pending at discharge Category Date Time Status Arterial Blood Gas W/O Coox AM LABS Lab 12/06/21 04:00 Ordered Radiology Impressions Chest X-Ray 12/02/21 15:10 IMPRESSION: No acute chest abnormality. Borderline cardiomegaly. Central lobar emphysema. Laboratory Results WBC 10.6 10^3/uL (4.0-10.0) H 12/04/21 06:12 RBC 3.73 10^6/uL (4.1-5.3) L 12/04/21 06:12 Hgb 10.9 g/dL (11.7-16.6) L 12/04/21 06:12 Hct 35.7 % (42.0-52.0) L 12/04/21 06:12 MCV 95.7 fl (80-94) H D 12/04/21 06:12 MCH 29.2 pg (28.0-34.0) 12/04/21 06:12 MCHC 30.5 g/dL (30.0-36.0) D 12/04/21 06:12 RDW 15.2 % (12.1-15.1) H 12/04/21 06:12 Plt Count 253 10^3/cmm (130-400) 12/04/21 06:12 MPV 11.3 fL (7.4-10.4) H 12/04/21 06:12 Neut % (Auto) 66.0 % 12/04/21 06:12 Lymph % (Auto) 23.7 % 12/04/21 06:12 Grimes % (Auto) 8.1 % 12/04/21 06:12 Eos % (Auto) 1.3 % 12/04/21 06:12 Baso % (Auto) 0.6 % 12/04/21 06:12 Neut # (Auto) 7.02 10^3/uL (1.8-7.7) 12/04/21 06:12 Lymph # (Auto) 2.5 10^3/uL (0.8-4.8) 12/04/21 06:12 Grimes # (Auto) 0.9 10^3/uL (0.2-0.9) 12/04/21 06:12 Eos # (Auto) 0.1 10^3/uL (0.0-0.8) 12/04/21 06:12 Baso # (Auto) 0.1 10^3/uL (0.0-0.1) 12/04/21 06:12 Nucleated RBC % (auto) 0 % 12/04/21 06:12 Nucleated RBCs # 0.0 /100WBC 12/04/21 06:12 PT 14.50 SECONDS (12.1-14.9) 12/02/21 15:14 INR 1.10 (0.8-1.2) 12/02/21 15:14 Specimen Type Arterial 12/05/21 10:55 Sample Site Radial, left 12/05/21 10:55 ABG pH 7.30 (7.35-7.45) L 12/05/21 10:55 ABG pCO2 79.5 mmHg (35-45) H* 12/05/21 10:55 ABG pO2 104.0 mmHg (80.0-100.0) H 12/05/21 10:55 ABG HCO3 39.2 mmol/L (22-26) H 12/05/21 10:55 ABG O2 Saturation 98.5 12/05/21 10:55 ABG Base Excess 10.0 mmol/L (-2.0-2.0) H 12/05/21 10:55 Jax Test Pos 12/05/21 10:55 A-a O2 Gradient Not Reportable 12/05/21 10:55 Hematocrit 35.8 % (42-52) L 12/05/21 10:55 Hgb O2 Saturation 96.5 % (95-100) 12/05/21 10:55 Carboxyhemoglobin 1.3 %THgb (0.4-20.1) 12/05/21 10:55 Methemoglobin 0.8 % (0.4-1.5) 12/05/21 10:55 Total Hemoglobin 11.7 g/dL (14-18) L 12/05/21 10:55 Sodium 141.0 mmol/L (131-143) 12/05/21 10:55 Potassium 4.5 mmol/L (3.5-5.0) 12/05/21 10:55 Glucose 254.0 mg/dL (70-115) H 12/05/21 10:55 Ionized Calcium 1.2 mmol/L (1.1-1.4) 12/05/21 10:55 O2 Delivery Device Nc 12/05/21 10:55 O2 Liters/Min 5.0 % 12/05/21 10:55 FiO2 40.0 % 12/04/21 04:34 Power Manager ID Gd 12/05/21 10:55 Sodium 144 mmol/L (136-145) 12/05/21 05:18 Potassium 4.4 mmol/L (3.5-5.1) 12/05/21 05:18 Chloride 99 mmol/L (98-107) 12/05/21 05:18 Carbon Dioxide 43 mmol/L (22-29) H* 12/05/21 05:18 Anion Gap 6.4 (5-19) 12/05/21 05:18 BUN 26 mg/dL (8-23) H 12/05/21 05:18 Creatinine 1.0 mg/dL (0.7-1.2) 12/05/21 05:18 GFR Calculation 75.7 mL/min (90-130) L 12/05/21 05:18 Glucose 76 mg/dL (65-115) 12/05/21 05:18 POC Glucose 328 mg/dL (70-110) H 12/05/21 10:56 Estimat Average Glucose 214 12/03/21 04:36 Hemoglobin A1c 9.1 % (4.0-6.0) H 12/03/21 04:36 Calculated Osmolality 302 mOsm/kg (285-295) H 12/05/21 05:18 Calcium 9.3 mg/dL (8.5-10.5) 12/05/21 05:18 Phosphorus 3.5 mg/dL (2.5-4.5) 12/03/21 04:36 Magnesium 2.3 mg/dL (1.7-2.3) 12/03/21 04:36 Total Bilirubin 0.2 mg/dL (0.15-1.2) 12/02/21 15:14 AST 14 U/L (0-40) 12/02/21 15:14 ALT 20 U/L (0-41) 12/02/21 15:14 Alkaline Phosphatase 104 IU/L (40-130) 12/02/21 15:14 Troponin T Baseline 22 ng/L (0-15) H 12/02/21 15:14 Troponin T 120 Minute 23.35 ng/L (0-15) H 12/02/21 16:59 Delta Troponin T 1.35 ABS# (0-10) 12/02/21 16:59 Troponin T Hi Sens 6Hr 25.86 ng/L (0-15) H 12/02/21 21:50 Troponin T Hi Sens 6Hr Delta 3.86 ng/L (0-12) 12/02/21 21:50 C-Reactive Protein 26.6 mg/L (0.0-4.9) H 12/03/21 04:36 NT-Pro-B Natriuret Pep 1322 pg/mL (0-125) H 12/02/21 15:14 Total Protein 7.1 g/dL (6.6-8.7) 12/02/21 15:14 Albumin 3.7 g/dL (3.5-5.2) 12/02/21 15:14 Globulin 3.4 g/dL (1.3-4.6) 12/02/21 15:14 Procalcitonin 0.08 ng/mL (0-0.5) 12/02/21 16:59 Digoxin 1.3 ng/mL (0.6-1.2) H 12/03/21 04:36 Vitals Last Vital Signs Temp 97.7 F 12/05/21 08:00 Pulse 88 12/05/21 12:00 Resp 18 12/05/21 12:00 BP 102/67 12/05/21 12:00 Pulse Ox 93 12/05/21 12:00 O2 Del Method 12/05/21 12:00 O2 Flow Rate 4 12/05/21 11:39 FiO2 30 12/05/21 11:35 Discharge Plan Discharge Patient Disposition: Home Health Service Condition: Stable Prescriptions: New Advair HFA 45-21 mcg/actuation HFA aerosol inhaler 2 inh inhalation Q12H Qty: 12 5RF Rx Instructions: administer with spacer Spiriva Respimat 2.5 mcg/actuation mist 2 inh inhalation QAM Qty: 4 5RF Continued multivitamin Tablet 1 tab PO DAILY (DME) Dexcom G6 Garde Manger Misc See Rx Instructions .Route Qty: 1 0RF Rx Instructions: [place] [place]com G[place] Sensor Device See Rx Instructions .Route Qty: 3 3RF Rx Instructions: Check BS 4 times a day. Change every 10 days. [place] [place] Dexcom G6 Transmitter Device See Rx Instructions .Route Qty: 1 3RF Rx Instructions: Change every 90 days. (DME) concentrator and homefill oxygen system See Rx Instructions .Route .MEDSUPPLY Qty: 1 0RF Rx Instructions: As directed metoprolol tartrate 100 mg tablet 100 mg PO BID Qty: 60 6RF [place] [place] pen needle, diabetic [Comfort EZ Pen [place]] 29 gauge x 1/2 needle See Rx Instructions .ROUTE .MEDSUPPLY Qty: 100 3RF Rx Instructions: one daily [place] [place] blood sugar diagnostic Strip See Rx Instructions .ROUTE .MEDSUPPLY Qty: 100 0RF Rx Instructions: twice daily [place] [place] blood-glucose meter [OneTouch Ultra2 Meter] Kit See Rx Instructions .ROUTE .MEDSUPPLY Qty: 1 0RF Rx Instructions: As directed [place] [place] lancets [OneTouch UltraSoft Lancets] Misc See Rx Instructions .ROUTE .MEDSUPPLY Qty: 100 0RF Rx Instructions: As directed metformin 1,000 mg tablet 1,000 mg PO BID Qty: 180 0RF Eliquis 5 mg tablet 5 mg PO BID Qty: 180 0RF ProAir HFA 90 mcg/actuation Hfa Aerosol Inhaler 2 puff INHALATION Q6H PRN (Reason: Shortness Of Breath) Vitamin D3 50 mcg (2,000 unit) Tablet 100 mcg PO DAILY atorvastatin 80 mg tablet 80 mg PO QAM isosorbide mononitrate 30 mg tablet extended release 24 hr 15 mg PO QAM spironolactone 25 mg tablet 25 mg PO QAM lisinopril 10 mg tablet 5 mg PO BEDTIME duloxetine 30 mg capsule,delayed release(DR/EC) 30 mg PO BEDTIME albuterol sulfate 2.5 mg /3 mL (0.083 %) solution for nebulization 2.5 mg INHALATION QID PRN (Reason: shortness of breath or wheezing) Qty: 75 4RF insulin glargine U-300 conc 300 unit/mL (3 mL) insulin pen See Rx Instructions SUBCUT DAILY Qty: 18 12RF Rx Instructions: 90 units subcut in AM and 80 units at night Changed Lasix 40 mg tablet 40 mg PO QAM Qty: 60 3RF potassium chloride 20 mEq tablet extended release 20 meq PO BEDTIME Qty: 60 1RF Discontinued budesonide-formoterol [Symbicort] 160-4.5 mcg/actuation HFA aerosol inhaler 2 puff INHALATION Q12H Qty: 10.2 2RF glyburide 5 mg tablet 5 mg PO QAM digoxin 250 mcg (0.25 mg) tablet 250 mcg PO BEDTIME Discharge Orders: Discharge Order (Routine); Ordered 12/05/21 Ordered By: Francisco Walls Other Ambulatory Orders: DME: BIPAP (Order) Location: None Selected Ordered By: Francisco Walls DME: Oxygen (Order) Location: None Selected Ordered By: Francisco Walls Ref[place]: [facility] [place] [facility] [place]) [Outside] Mason Giles MD [Primary Care Provider] - DatarLoc MD [Physician] - 4-7 days Discharge Diet: Cardiac Discharge Activity: Increase activity as tolerated Patient Instructions: Opioid Safety Discharge Attestations Time Spent in Discharge Care*: less than 30 min Quality Metrics Clinical Quality Measures [ No reported AMI, CVA or VTE this stay] Coding Level of Care Code Acute Chg FW DC note Diagnoses Acute hypercapnic respiratory failure J96.02 CHF (congestive heart failure) I50.9 Dyslipidemia E78.5 Bilateral leg weakness R29.898 Atrial fibrillation with controlled ventricular response I48.91 Uncontrolled type 2 diabetes mellitus, with long-term current use of insulin E11.65; Z79.4
--- NOTE | 2021-12-09 11:46 | PC.SOCIAL ---
GAURI obtained permission from Dr. Walls to call in medications to [facility] under [facility] for Pro Air, Eliquis, Spironolactone, Advair, and Spiriva. These were called in. GAURI updated Joshua with [facility].
--- NOTE | 2021-12-09 11:50 | PC.SOCIAL ---
CM updated patient that medications were called into [facility] in [facility] and that he could come in and pick them up today.
== END 2021-12-05 16:45 | disposition home health service (06) ==
LOC: ER 17:39 → MEDSURG 18:17
PROVIDERS: Admitting Provider Internal Medicine; Emergency Provider Emergency Medicine; PCP Family Medicine; Visit Provider Internal Medicine
DX: J96.02 Acute respiratory failure with hypercapnia (principal); E78.5 Hyperlipidemia, unspecified; R29.898 Other symptoms and signs involving the musculoskeletal system; I48.91 Unspecified atrial fibrillation; E11.65 Type 2 diabetes mellitus with hyperglycemia; I50.32 Chronic diastolic (congestive) heart failure; Z79.4 Long term (current) use of insulin; Z99.81 Dependence on supplemental oxygen; E11.22 Type 2 diabetes mellitus with diabetic chronic kidney disease; I13.0 Hypertensive heart and chronic kidney disease with heart failure and stage 1 through stage 4 chronic kidney disease, or unspecified chronic kidney disease; N18.2 Chronic kidney disease, stage 2 (mild); Z91.19 Patient's noncompliance with other medical treatment and regimen; E66.01 Morbid (severe) obesity due to excess calories; Z68.44 Body mass index [BMI] 60.0-69.9, adult; Z87.891 Personal history of nicotine dependence
CPT/HCPCS: 36415; 36416; 36600; 71045; 80048; 80051; 80053; 80162; 82330; 82803; 82805; 82962; 83036; 83735; 83880; 84100; 84145; 84484; 85025; 85610; 86140; 93005; 94640; 94660; 94664; 94760; 94762; 96361; 96365; 96372; 96375; 99285; G0378; J0696; J1815; J1940; J2920; J3486

== ENCOUNTER 2022-01-30 11:51 | Inpatient (IN) | payer MEDICARE, SELFPAY ==
[2022-01-30] VITALS (24 sets, daily range): BP systolic 74–131; BP diastolic 47–106; PULSE 95–124; RESP 16–28; O2SAT 84–100; BMI 55.7
--- NOTE | 2022-01-30 11:58 | XRR_ITS ---
PROCEDURE INFORMATION: Exam: XR Chest Exam date and time: 01/30/2022 12:11 PM Age: 61 years old Clinical indication: Cough and dyspnea; Additional info: Dyspnea/cough TECHNIQUE: Imaging protocol: Radiologic exam of the chest. Views: 1 view. COMPARISON: CR XR chest 1V portable [id number] 12/02/2021 3:26 PM FINDINGS: Lungs: Unremarkable. No consolidation. Pleural spaces: Unremarkable. No pleural effusion. No pneumothorax. Heart/Mediastinum: Unremarkable. No cardiomegaly. Bones/joints: Unremarkable. XR/XR chest 1V portable [id number] IMPRESSION: No acute findings.
--- NOTE | 2022-01-30 11:59 | ECG_ITS ---
[facility] Test Date: 2022-01-30 Pat Name: Wayne Nicholson Department: Room: ICU12 Gender: Male Qual Field Manager: : 1960 Requested By: Grayson Tam Order Number: [id number] Marcello MD: Gm Mathis M.D. Measurements Intervals [place] Rate: 112 P: CO: QRS: 103 QRSD: 107 T: 133 QT: 296 QTc: 405 Interpretive Statements ATRIAL FIBRILLATION WITH RAPID VENTRICULAR RESPONSE INCOMPLETE RIGHT BUNDLE BRANCH BLOCK [90+ ms QRS DURATION, TERMINAL R IN V1/V2, 40+ ms S IN I/aVL/V4/V5/V6] LATERAL MYOCARDIAL INFARCTION , OF INDETERMINATE AGE [40+ ms Q WAVE AND/OR ST/T ABNORMALITY IN I/aVL/V5/V6] Compared to ECG 12/02/2021 17:18:32 Incomplete right bundle-branch block now present Myocardial infarct finding now present Intraventricular conduction delay no longer present Electronically Signed On 01-30-2022 21:21:24 CDT by Gm Mathis M.D. [id number]
--- NOTE | 2022-01-30 12:02 | ED_ITS ---
HPI - SOB/Dyspnea General: Chief Complaint: Shortness of Breath/Dyspnea Stated Complaint: RESPIRATORY DISTRESS Time Seen by Provider: 01/30/22 11:57 Source: patient Mode of arrival: ambulatory History of Present Illness: HPI Narrative: 61-year-old male presents emergency room complaining of shortness of breath. Arrives via EMS normally is on 6 L by nasal cannula on arrival he is in 80% in acute respiratory distress trialed CPAP gave him nebulizers and terbutaline as well as Decadron in route. He denies any chest pain he does have increasing orthopnea. Is a history of congestive heart failure according to his old records. Minimally productive cough. MD elicited complaint: shortness of breath and cough Pertinent past history: COPD Onset (ago): day(s) Timing: constant Severity: moderate Exacerbating factors: nothing Relieving factors: nothing Known history of: COPD Associated symptoms: Reports orthopnea; Deny abdominal pain, chest pain, fever(s), nausea, palpitations or vomiting Review of Systems Const: Denies: fever(s), chills, body aches, change in appetite, fatigue or malaise ENMT: Denies: throat pain, ear or mastoid pain, nasal discharge or nasal congestion Card: Reports: edema and orthopnea; Denies: chest pain, palpitations, irregular heart rhythm, swelling of feet/ankles or dyspnea on exertion Resp: Denies: dyspnea, productive cough or non-productive cough GI: Reports: bloating; Denies: abdominal pain, nausea, vomiting, hematemesis, coffee ground emesis, diarrhea, constipation, hematochezia or melena : Denies: flank pain, difficulty urinating, dysuria, urinary frequency or urinary urgency Skin/Breast: Denies: rash or pruritus PFSH ED PFSH: Medical History (Updated 01/30/22 @ 14:09 by Grayson Mathur DO) Atrial fibrillation CHF (congestive heart failure) CKD stage 2 due to type 2 diabetes mellitus COPD (chronic obstructive pulmonary disease) Diabetes mellitus, type II Diabetic neuropathy Dyslipidemia Hypertension Morbid obesity SHERLEY (obstructive sleep apnea) Surgical History S/P appendectomy Family History (Updated 01/30/22 @ 14:08 by Kaylee Meng MD) Mother CAD (coronary artery disease) Atrial fibrillation Father Lung disease Unknown Cancer Lung, Breast, Brain Other CHF (congestive heart failure) Social History Smoking and tobacco status: former smoker Alcohol intake: former Substance/Drug Use: former Caregiver/support person: Yes Lives independently: Yes Household members: significant other Physical Exam Const: GENERAL APPEARANCE: cooperative and comfortable ORIENT ATION/CONSCIOUSNESS: Yes awake, Yes oriented to person, Yes oriented to place and Yes oriented to time HENMT: COMMON NORMALS: normocephalic, atraumatic and hearing grossly normal bilaterally HEAD & SCALP: normocephalic and atraumatic Resp: COMMON NORMALS: normal respiratory effort, No retractions, No use of accessory muscles and clear to auscultation bilaterally AUSCULTATION: clear to auscultation bilaterally Cardio: COMMON NORMALS: regular rate, regular rhythm and No murmurs present (Cardio) RATE: regular rate RHYTHM: regular rhythm GI: COMMON NORMALS: Soft to palpation and No hepatosplenomegaly present AUSCULTATION: Yes normoactive bowel sounds PALPATION: Yes Soft to palpation, No Tenderness to palpation present (GI), No Guarding due to palpation present (GI) and Yes No hepatosplenomegaly present Extremity: COMMON NORMALS: normal to inspection, capillary refill normal, no clubbing, cyanosis or edema, no calf tenderness and no pedal edema Neuro: SENSORIUM/ORIENTATION: Yes oriented to person, Yes oriented to place and Yes oriented to time Skin: COMMON NORMALS: no rashes or lesions noted GENERAL SKIN EXAM: no rashes or lesions noted Course Vital Signs: Vital signs: Vital Signs Pulse Rate 109 H 01/30/22 14:03 Respiratory Rate 17 01/30/22 14:03 Blood Pressure 131/106 01/30/22 14:03 Pulse Oximetry 90 01/30/22 13:36 Oxygen Delivery Me thod 01/30/22 13:36 Oxygen Flow Rate 6 01/30/22 11:56 Fraction of Inspir ed Oxygen 50 01/30/22 13:36 MDM - SOB/Dyspnea Medical Decision Making Improved slightly with BiPAP patient has been given Lasix. He will require ICU he is disoriented because of his hypercapnia. He also has hyperkalemia which was treated with albuterol Kayexalate calcium chloride in the department discussed Dr. Meng orders written Medical Records I reviewed the patient's medical records. Lab Data I reviewed the patient's lab results. : 01/30/22 12:03 01/30/22 12:03 Labs/Radiology: Radiology Impressions Chest X-Ray 01/30/22 11:58 IMPRESSION: No acute findings. Laboratory Results WBC 13.5 10^3/uL (4.0-10.0) H 01/30/22 12:03 RBC 2.98 10^6/uL (4.1-5.3) L 01/30/22 12:03 Hgb 8.8 g/dL (11.7-16.6) L 01/30/22 12:03 Hct 30.7 % (42.0-52.0) L 01/30/22 12:03 MCV 103.0 fl (80-94) H 01/30/22 12:03 MCH 29.5 pg (28.0-34.0) 01/30/22 12:03 MCHC 28.7 g/dL (30.0-36.0) L 01/30/22 12:03 RDW 15.6 % (12.1-15.1) H 01/30/22 12:03 Plt Count 285 10^3/cmm (130-400) 01/30/22 12:03 MPV 11.6 fL (7.4-10.4) H 01/30/22 12:03 Neut % (Auto) 86.2 % 01/30/22 12:03 Lymph % (Auto) 6.5 % 01/30/22 12:03 [place] % (Auto) 5.9 % 01/30/22 12:03 Eos % (Auto) 0.6 % 01/30/22 12:03 Baso % (Auto) 0.4 % 01/30/22 12:03 Neut # (Auto) 11.60 10^3/uL (1.8-7.7) H 01/30/22 12:03 Lymph # (Auto) 0.9 10^3/uL (0.8-4.8) 01/30/22 12:03 [place] # (Auto) 0.8 10^3/uL (0.2-0.9) 01/30/22 12:03 Eos # (Auto) 0.1 10^3/uL (0.0-0.8) 01/30/22 12:03 Baso # (Auto) 0.1 10^3/uL (0.0-0.1) 01/30/22 12:03 Nucleated RBC % (auto) 0 % 01/30/22 12:03 Nucleated RBCs # 0.0 /100WBC 01/30/22 12:03 Specimen Type Arterial 01/30/22 12:06 Sample Site Radial, left 01/30/22 12:06 ABG pH 7.32 (7.35-7.45) L 01/30/22 12:06 ABG pCO2 80.5 mmHg (35-45) H* 01/30/22 12:06 ABG pO2 51.7 mmHg (80.0-100.0) L 01/30/22 12:06 ABG HCO3 41.7 mmol/L (22-26) H 01/30/22 12:06 ABG O2 Saturation 86.0 01/30/22 12:06 ABG Base Excess 13.5 mmol/L (-2.0-2.0) H 01/30/22 12:06 Jax Test Pos 01/30/22 12:06 A-a O2 Gradient 14.5 mmHg (5-10) H 01/30/22 12:06 Hematocrit 26.8 % (42-52) L 01/30/22 12:06 Hgb O2 Saturation 85.0 % (95-100) L 01/30/22 12:06 Carboxyhemoglobin 1.6 %THgb (0.4-20.1) 01/30/22 12:06 Methemoglobin < 0.0 % (0.4-1.5) L 01/30/22 12:06 Total Hemoglobin 8.7 g/dL (14-18) L 01/30/22 12:06 Sodium 141.0 mmol/L (131-143) 01/30/22 12:06 Potassium 5.7 mmol/L (3.5-5.0) H 01/30/22 12:06 Glucose 214.0 mg/dL (70-115) H 01/30/22 12:06 Ionized Calcium 1.2 mmol/L (1.1-1.4) 01/30/22 12:06 O2 Delivery Device Nc 01/30/22 12:06 O2 Liters/Min 4.0 % 01/30/22 12:06 FiO2 36.0 % 01/30/22 12:06 Weigh And Charge Worker ID Cak 01/30/22 12:06 Sodium 139 mmol/L (136-145) 01/30/22 12:03 Potassium 5.9 mmol/L (3.5-5.1) H 01/30/22 12:03 Chloride 94 mmol/L (98-107) L 01/30/22 12:03 Carbon Dioxide 41 mmol/L (22-29) H 01/30/22 12:03 Anion Gap 9.9 (5-19) 01/30/22 12:03 BUN 22 mg/dL (8-23) 01/30/22 12:03 Creatinine 1.1 mg/dL (0.7-1.2) 01/30/22 12:03 GFR Calculation 67.8 mL/min (90-130) L 01/30/22 12:03 Glucose 216 mg/dL (65-115) H 01/30/22 12:03 Calculated Osmolality 298 mOsm/kg (285-295) H 01/30/22 12:03 Lactic Acid 1.0 mmol/L (0.5-2.2) 01/30/22 12:49 Calcium 9.1 mg/dL (8.5-10.5) 01/30/22 12:03 Total Bilirubin 0.4 mg/dL (0.15-1.2) 01/30/22 12:03 AST 14 U/L (0-40) 01/30/22 12:03 ALT 15 U/L (0-41) 01/30/22 12:03 Alkaline Phosphatase 104 U/L (40-130) 01/30/22 12:03 Creatine Kinase 71 U/L (39-308) 01/30/22 12:03 Troponin T Baseline 35 ng/L (0-15) H 01/30/22 12:03 NT-Pro-B Natriuret Pep 2048 pg/mL (0-125) H 01/30/22 12:03 Total Protein 6.9 g/dL (6.6-8.7) 01/30/22 12:03 Albumin 3.8 g/dL (3.5-5.2) 01/30/22 12:03 Globulin 3.1 g/dL (1.3-4.6) 01/30/22 12:03 Urine Color Straw (Yellow) 01/30/22 12:49 Urine Appearance Clear (CLEAR) 01/30/22 12:49 Urine pH 5 (5-7) 01/30/22 12:49 Ur Specific [place] 1.010 (1.005-1.030) 01/30/22 12:49 Urine Protein Neg (Negative) 01/30/22 12:49 Urine Glucose (UA) Norm (Normal) 01/30/22 12:49 Urine Ketones Negative (Negative) 01/30/22 12:49 Urine Blood Neg (Negative) 01/30/22 12:49 Urine Nitrate Negative (Negative) 01/30/22 12:49 Urine Bilirubin Neg (Negative) 01/30/22 12:49 Urine Urobilinogen Norm mg/dL (Negative) 01/30/22 12:49 Ur Leukocyte Esterase Negative (Negative) 01/30/22 12:49 Discharge Plan Discharge Patient Disposition: Admitted As Inpatient Clinical Impression: Acute on chronic respiratory failure with hypoxia and hypercapnia, CKD stage 2 due to type 2 diabetes mellitus, Atrial fibrillation, Diabetes mellitus, type II, Chronic anticoagulation, Hypertension, BMI 50.0-59.9, adult, COPD (chronic obstructive pulmonary disease), Difficulty with BiPAP use, SHERLEY (obstructive slee p apnea), Congestive heart failure, Acute exacerbation of chronic obstructive airways disease Condition: Stable Prescriptions: No Action multivitamin Tablet 1 tab PO DAILY (DME) Dexcom G6 Global Engineering Manager Misc See Rx Instructions .Route Qty: 1 0RF Rx Instructions: As directed (DME) Dexcom G6 Sensor Device See Rx Instructions .Route Qty: 3 3RF Rx Instructions: Check BS 4 times a day. Change every 10 days. (DME) Dexcom G6 Transmitter Device See Rx Instructions .Route Qty: 1 3RF Rx Instructions: Change every 90 days. (DME) concentrator and homefill oxygen system See Rx Instructions .Route .MEDSUPPLY Qty: 1 0RF Rx Instructions: As directed (DME) pen needle, diabetic [Comfort EZ Pen [place]] 29 gauge x 1/2 needle See Rx Instructions .ROUTE .MEDSUPPLY Qty: 100 3RF Rx Instructions: one daily (DME) blood sugar diagnostic Strip See Rx Instructions .ROUTE .MEDSUPPLY Qty: 100 0RF Rx Instructions: twice daily (DME) blood-glucose meter [OneTouch Ultra2 Meter] Kit See Rx Instructions .ROUTE .MEDSUPPLY Qty: 1 0RF Rx Instructions: As directed (DME) lancets [OneTouch UltraSoft Lancets] Misc See Rx Instructions .ROUTE .MEDSUPPLY Qty: 100 0RF Rx Instructions: As directed metformin 1,000 mg tablet 1,000 mg PO BID Qty: 180 0RF Eliquis 5 mg tablet 5 mg PO BID Qty: 180 0RF metoprolol tartrate 100 mg tablet 100 mg PO BID Qty: 60 0RF albuterol sulfate [ProAir HFA] 90 mcg/actuation Hfa Aerosol Inhaler 2 puff INHALATION Q6H PRN (Reason: Shortness Of Breath) cholecalciferol (vitamin D3) [Vitamin D3] 50 mcg (2,000 unit) Tablet 100 mcg PO DAILY atorvastatin 80 mg tablet 80 mg PO QAM isosorbide mononitrate 30 mg tablet extended release 24 hr 15 mg PO QAM spironolactone 25 mg tablet 25 mg PO QAM lisinopril 10 mg tablet 5 mg PO BEDTIME Advair HFA 45-21 mcg/actuation HFA aerosol inhaler 2 inh inhalation Q12H Qty: 12 5RF Rx Instructions: administer with spacer furosemide [Lasix] 40 mg tablet 40 mg PO QAM Qty: 60 3RF albuterol sulfate 2.5 mg /3 mL (0.083 %) solution for nebulization 2.5 mg INHALATION QID PRN (Reason: shortness of breath or wheezing) Qty: 75 4RF insulin glargine U-300 conc 300 unit/mL (3 mL) insulin pen See Rx Instructions SUBCUT DAILY Qty: 18 12RF Rx Instructions: 90 units subcut in AM and 80 units at night Vitamin B-12 100 mcg Tablet 100 mcg PO DAILY Vitamin C 500 mg Tablet Extended Release 500 mg PO DAILY duloxetine 60 mg capsule,delayed release(DR/EC) 60 mg PO BEDTIME potassium chloride 20 mEq tablet extended release 10 meq PO BEDTIME Referrals: Mason Giles MD [Primary Care Provider] - Coding Level of Care Code ED Signal Maintenance Technician for Chg Fwd Exam Detailed
[2022-01-30] MEDS: aspirin 81 mg Chew Tablet 324 MG PO (12:04)
[2022-01-30] MEDS: FUROsemide 10 mg/mL SDV 10mL 80 MG IVP (12:06)
[2022-01-30 12:12] LABS: Basophils # 0.1 10^3/uL (0.0-0.1); Basophils % 0.4 %; Eosinophils # 0.1 10^3/uL (0.0-0.8); Eosinophils % 0.6 %; Hematocrit 30.7 % (42.0-52.0); Hemoglobin 8.8 g/dL (11.7-16.6); Lymphocytes # 0.9 10^3/uL (0.8-4.8); Lymphocytes % 6.5 %; Mean Corpuscular HGB Conc 28.7 g/dL (30.0-36.0); Mean Corpuscular Hemoglobin 29.5 pg (28.0-34.0); Mean Platelet Volume 11.6 fL (7.4-10.4); Monocytes # 0.8 10^3/uL (0.2-0.9); Monocytes % 5.9 %; Neutrophils % 86.2 %; Nucleated Red Blood Cells % 0 %; Platelet Count 285 10^3/cmm (130-400); Red Blood Count 2.98 10^6/uL (4.1-5.3); Red Cell Distribution Width 15.6 % (12.1-15.1); White Blood Count 13.5 10^3/uL (4.0-10.0)
[2022-01-30 12:16] LABS: ABG PH Result 7.32 (7.35-7.45); Alveolar-Arterial Oxygen Gradi 14.5 mmHg (5-10); Arterial Blood Gas Hematocrit 26.8 % (42-52); Base Excess ABG 13.5 mmol/L (-2.0-2.0); Blood Gas Allen Test Pos; Blood Gas Operator Identificat CAK; Blood Gas Sample Site Radial, left; Blood Gas Sample Type Arterial; Carboxyhemoglobin 1.6 %THgb (0.4-20.1); HCO3 ABG 41.7 mmol/L (22-26); Ionized Calcium Level - ABG 1.2 mmol/L (1.1-1.4); Methemoglobin < 0.0 % (0.4-1.5); Oxygen Device NC; PO2 ABG 51.7 mmHg (80.0-100.0); Potassium Level - ABG 5.7 mmol/L (3.5-5.0); Total Hemoglobin 8.7 g/dL (14-18)
[2022-01-30 12:18] LABS: ABG PCO2 80.5 mmHg (35-45)
[2022-01-30 12:36] LABS: Troponin(5th) Baseline 35 ng/L (0-15)
[2022-01-30 12:42] LABS: Alanine Aminotransferase 15 U/L (0-41); Albumin Level 3.8 g/dL (3.5-5.2); Alkaline Phosphatase 104 U/L (40-130); Anion Gap 9.9 (5-19); Aspartate Amino Transferase 14 U/L (0-40); Blood Urea Nitrogen 22 mg/dL (8-23); Calcium 9.1 mg/dL (8.5-10.5); Chloride 94 mmol/L (98-107); Creatine Phosphokinase 71 U/L (39-308); Globulin 3.1 g/dL (1.3-4.6); Glomerular Filtration Rate 67.8 mL/min (90-130); Glucose 216 mg/dL (65-115); NT Pro B Type Natriuretic Pept 2048 pg/mL (0-125); Osmolality Calculated 298 mOsm/kg (285-295); Potassium 5.9 mmol/L (3.5-5.1); Sodium 139 mmol/L (136-145); Total Bilirubin 0.4 mg/dL (0.15-1.2); Total Protein 6.9 g/dL (6.6-8.7)
[2022-01-30 12:52] LABS: Carbon Dioxide 41 mmol/L (22-29)
[2022-01-30 12:58] LABS: Add Urine Microscopic? NO; Charge for UA Resulting for Rev
[2022-01-30 13:10] LABS: Bilirubin Urine Neg (Negative); Blood Urine Neg (Negative); Glucose Urine UA Norm (Normal); Ketones Urine Negative (Negative); Leukocyte Esterase Urine Negative (Negative); Nitrate Urine Negative (Negative); Protein Urine Neg (Negative); Urine Appearance Clear (CLEAR); Urine Color Straw (Yellow); Urobilinogen Urine Norm (Negative); pH Urine 5 (5-7)
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
[2022-01-30] MEDS: ziprasidone 20 mg/mL SDV 10 MG IM (13:54)
[2022-01-30] MEDS: calcium chloride 10% Syr 10 mL 1 GM IVP (13:55)
--- NOTE | 2022-01-30 14:01 | P.HP_ITS ---
Providers/Chief Complaint Admitting Physician: Kaylee Meng MD Primary Care Provider: Mason Giles MD Chief Complaint: RESPIRATORY DISTRESS History of Present Illness Wayne Nicholson is a 61 year old male with multiple comorbid medical conditions as noted below. He started feeling bad on Sunday a few days ago. Began with a cough. Initially nonproductive. Cough then became productive of yellowish like sputum but he had a difficult time getting it up. His breathing has become progressively worse over the weekend. He has been more weak and tired and at times confused. All of this has progressively worsened over the last few days. Today he was extremely confused and struggling to breathe prompting EMS to be called. He is normally on 4 L of oxygen or so. Over the weekend he was on 6 L. Initial saturations per EMS were in the 70s in the field. He was brought in on BiPAP without much improvement. He was placed on BiPAP here in the emergency room. Saturations with 70% FiO2 into the low 90s. Patient has received 80 mg of IV Lasix and continuous nebulizer treatment in the ER. He has had difficulty maintaining BiPAP, constantly wanting to take it off. He received 10 mg of Geodon x1 dose due to his degree of confusion. This temporarily seemed to help but then he began to be more confused again. Lord catheter was placed and he has had about 1500 mL output thus far. He continues to feel like he has to urinate. He slid off of the end of the bed onto the floor in the emergency room 1 time when he was trying to get up. The bed had gone into a reverse Trendelenburg position and the positive him on the floor, it was not actually a fall. Still it took 8 people to get him up off the floor and back into the bed. Initial ABG showed 7.32/80/51/41. Repeat ABG several hours later showed 7.32/85/88/43. Oxygen saturation began to drop and with patient's degree of confusion and associated limited cooperation, decision was made to proceed with intubation. This was discussed with his significant other who was present. At the time decision was made oxygen saturations were persistently dropping into the 70s without manual maintenance of BiPAP. Per significant other, no known objective fever although some subjective. No GI symptoms. She ranges medications and he takes them himself. Unclear if he has either taken too many or not taken them lately. He had home health until last week when he was discharged from home health. He will indicate that he uses his BiPAP but may be a couple of times a month is what is recorded. Last hospitalization was in November when he was here for CHF and COPD exacerbations. Review of Systems General: Reports: ROS unobtainable due to medical condition and ROS unobtainable due to mental status Medications/Allergies Home Medications Medication Instructions Recorded Confirmed Last Taken Type multivitamin 1 tab PO DAILY 05/15/19 01/30/22 01/30/22 History concentrator and homefill oxygen #1 ea 09/30/20 01/30/22 Unknown Rx system blood sugar diagnostic #100 ea 03/10/21 01/30/22 Unknown Rx pen needle, diabetic 29 gauge x #100 ea 03/10/21 01/30/22 Unknown Rx 1/2 (Comfort EZ Pen Wilbur) blood-glucose meter (OneTouch #1 ea 03/14/21 01/30/22 Unknown Rx Ultra2 Meter kit) lancets (OneTouch UltraSoft #100 ea 03/14/21 01/30/22 Unknown Rx Lancets) metformin 1,000 mg tablet 1,000 mg PO BID #180 tabs 04/18/21 01/30/22 01/30/22 Rx blood-glucose meter,continuous #1 ea 06/07/21 01/30/22 Unknown Rx (Dexcom G6 Manager Supplier misc) blood-glucose sensor (Dexcom G6 #3 ea 06/07/21 01/30/22 Unknown Rx Sensor device) blood-glucose transmitter (Dexcom #1 ea 06/07/21 01/30/22 Unknown Rx G6 Transmitter device) apixaban 5 mg tablet (Eliquis) 5 mg PO BID #180 tabs 10/27/21 01/30/22 01/30/22 Rx albuterol sulfate 90 mcg/actuation 2 puff inhalation Q6H PRN 12/02/21 01/30/22 01/30/22 History aerosol inhaler (ProAir HFA) Shortness Of Breath atorvastatin 80 mg tablet 80 mg PO QAM 12/02/21 01/30/22 01/30/22 History cholecalciferol (vitamin D3) 50 100 mcg PO DAILY 12/02/21 01/30/22 01/30/22 History mcg (2,000 unit) tablet (Vitamin D3) isosorbide mononitrate 30 mg 15 mg PO QAM 12/02/21 01/30/22 01/30/22 History tablet,extended release 24 hr lisinopril 10 mg tablet 5 mg PO BEDTIME 12/02/21 01/30/22 01/29/22 History spironolactone 25 mg tablet 25 mg PO QAM 12/02/21 01/30/22 01/30/22 History albuterol sulfate 2.5 mg/3 mL 2.5 mg (3 mL) inhalation QID PRN 12/05/21 01/30/22 Unknown Rx (0.083 %) solution for nebulization shortness of breath or wheezing #75 mL fluticasone propionate 45 2 inh inhalation Q12H #12 grams 12/05/21 01/30/22 01/30/22 Rx mcg-salmeterol 21 mcg/actuation HFA inhaler (Advair HFA) furosemide 40 mg tablet (Lasix) 40 mg PO QAM #60 tabs 12/05/21 01/30/22 01/30/22 Rx insulin glargine U-300 conc 300 See Rx Instructions SUBCUT DAILY 12/05/21 01/30/22 01/30/22 Rx unit/mL (3 mL) subcutaneous pen #18 mL metoprolol tartrate 100 mg tablet 100 mg PO BID #60 tabs 01/23/22 01/30/22 01/27/22 Rx ascorbic acid (vitamin C) 500 mg 500 mg PO DAILY 01/30/22 01/30/22 01/30/22 History tablet,extended release (Vitamin C ER) cyanocobalamin (vitamin B-12) 100 100 mcg PO DAILY 01/30/22 01/30/22 01/30/22 History mcg tablet (Vitamin B-12) duloxetine 60 mg capsule,delayed 60 mg PO BEDTIME 01/30/22 01/30/22 01/29/22 History release potassium chloride 20 mEq 10 meq PO BEDTIME 01/30/22 01/30/22 01/29/22 History tablet,extended release Allergies Allergy/AdvReac Type Severity Reaction Status Date / Time No Known Allergies Allergy Verified 01/30/22 12:57 PFSH Acute PFSH: Medical History (Updated 01/30/22 @ 17:23 by Kaylee Meng MD) Atrial fibrillation CHF (congestive heart failure) CKD stage 2 due to type 2 diabetes mellitus COPD (chronic obstructive pulmonary disease) Diabetes mellitus, type II Diabetic neuropathy Dyslipidemia History of echocardiogram 2018 EF 65%. no wall motion abnormalities, Grade III/IV Diastolic Dysfunction; [facility] History of left heart catheterization 2018 normal coronary arteries; performed by Dr Zaman at [facility], [facility] History of right heart catheterization 2018 PCWP 15 mmHg, mean PAP 50 mmHg, responsive to SL NTG with reduction to 39 mmHg, consistent with reversibility; performed by Dr Zaman at [facility], report in [employer] [facility] History of sleep study 2018 Moderate obstructive sleep apnea, exacerbated by REM sleep, nocturnal hypoxia, elevated periodic limb movement index with a normal PLM-arousal index, abnormal sleep architecture related to first night effect, respiratory events and medications; [facility] Hypertension Morbid obesity SHERLEY (obstructive sleep apnea) Surgical History S/P appendectomy Family History (Updated 01/30/22 @ 14:08 by Kaylee Meng MD) Mother CAD (coronary artery disease) Atrial fibrillation Father Lung disease Unknown Cancer Lung, Breast, Brain Other CHF (congestive heart failure) Social History (Updated 01/30/22 @ 14:09 by Kaylee Meng MD) Smoking and tobacco status: former smoker Alcohol intake: former Substance/Drug Use: former Caregiver/support person: Yes Lives independently: Yes Household members: significant other Vitals/I&O/Wt Last Vital Signs Pulse 122 H 01/30/22 13:39 Resp 27 H 01/30/22 13:36 BP 121/74 01/30/22 12:00 Pulse Ox 90 01/30/22 13:36 O2 Del Method 01/30/22 13:36 O2 Flow Rate 6 01/30/22 11:56 FiO2 50 01/30/22 13:36 Weight last 48 hrs Weight 181.437 kg Physical Exam Narrative: Constitutional: Obese, confused, only maintaining BiPAP with encouragement continuously HEENT: Normocephalic, extraocular movements intact, pupils are reactive, conjunctive injected, oropharynx with dry mucous membranes and dried mucus upon intubation later followed by copious clear secretions after intubation Neck: Large but supple Respiratory: Significantly decreased breath sounds on the left compared to the right Cardiovascular: Tachycardic irregular rhythm distant heart sounds Abdomen: Soft, obese, decreased bowel sounds; patient had continuous glucose monitor device in his right lower quadrant which I removed in the presence of his significant other who removed the transmitter herself and took it with her : Edematous appearing scrotal sac, Lord catheter in place Extremities: Both feet are swollen with 2-3+ pitting edema to the lower extremities bilaterally with chronic stasis changes, capillary refill is brisk, mottling to the left arm but not to the lower extremities or right upper extremity Skin: Skin is dry, scattered scratches in different stages of healing, erythema underneath the left breast Neuro: Moves all extremities, strength is equal in right and left upper extremities, sensation appears grossly intact in all extremities, not otherwise cooperative, speech is clear and face is symmetric Psych: Confused and restless Data : 01/30/22 12:03 01/30/22 12:03 Other Labs: Radiology Impressions Chest X-Ray 01/30/22 11:58 IMPRESSION: No acute findings. Laboratory Results WBC 13.5 10^3/uL (4.0-10.0) H 01/30/22 12:03 RBC 2.98 10^6/uL (4.1-5.3) L 01/30/22 12:03 Hgb 8.8 g/dL (11.7-16.6) L 01/30/22 12:03 Hct 30.7 % (42.0-52.0) L 01/30/22 12:03 MCV 103.0 fl (80-94) H 01/30/22 12:03 MCH 29.5 pg (28.0-34.0) 01/30/22 12:03 MCHC 28.7 g/dL (30.0-36.0) L 01/30/22 12:03 RDW 15.6 % (12.1-15.1) H 01/30/22 12:03 Plt Count 285 10^3/cmm (130-400) 01/30/22 12:03 MPV 11.6 fL (7.4-10.4) H 01/30/22 12:03 Neut % (Auto) 86.2 % 01/30/22 12:03 Lymph % (Auto) 6.5 % 01/30/22 12:03 Haralson % (Auto) 5.9 % 01/30/22 12:03 Eos % (Auto) 0.6 % 01/30/22 12:03 Baso % (Auto) 0.4 % 01/30/22 12:03 Neut # (Auto) 11.60 10^3/uL (1.8-7.7) H 01/30/22 12:03 Lymph # (Auto) 0.9 10^3/uL (0.8-4.8) 01/30/22 12:03 Haralson # (Auto) 0.8 10^3/uL (0.2-0.9) 01/30/22 12:03 Eos # (Auto) 0.1 10^3/uL (0.0-0.8) 01/30/22 12:03 Baso # (Auto) 0.1 10^3/uL (0.0-0.1) 01/30/22 12:03 Nucleated RBC % (auto) 0 % 01/30/22 12:03 Nucleated RBCs # 0.0 /100WBC 01/30/22 12:03 Specimen Type Arterial 01/30/22 12:06 Sample Site Radial, left 01/30/22 12:06 ABG pH 7.32 (7.35-7.45) L 01/30/22 12:06 ABG pCO2 80.5 mmHg (35-45) H* 01/30/22 12:06 ABG pO2 51.7 mmHg (80.0-100.0) L 01/30/22 12:06 ABG HCO3 41.7 mmol/L (22-26) H 01/30/22 12:06 ABG O2 Saturation 86.0 01/30/22 12:06 ABG Base Excess 13.5 mmol/L (-2.0-2.0) H 01/30/22 12:06 Jax Test Pos 01/30/22 12:06 A-a O2 Gradient 14.5 mmHg (5-10) H 01/30/22 12:06 Hematocrit 26.8 % (42-52) L 01/30/22 12:06 Hgb O2 Saturation 85.0 % (95-100) L 01/30/22 12:06 Carboxyhemoglobin 1.6 %THgb (0.4-20.1) 01/30/22 12:06 Methemoglobin < 0.0 % (0.4-1.5) L 01/30/22 12:06 Total Hemoglobin 8.7 g/dL (14-18) L 01/30/22 12:06 Sodium 141.0 mmol/L (131-143) 01/30/22 12:06 Potassium 5.7 mmol/L (3.5-5.0) H 01/30/22 12:06 Glucose 214.0 mg/dL (70-115) H 01/30/22 12:06 Ionized Calcium 1.2 mmol/L (1.1-1.4) 01/30/22 12:06 O2 Delivery Device Nc 01/30/22 12:06 O2 Liters/Min 4.0 % 01/30/22 12:06 FiO2 36.0 % 01/30/22 12:06 Junior Accountant Bookkeeper ID Cak 01/30/22 12:06 Sodium 139 mmol/L (136-145) 01/30/22 12:03 Potassium 5.9 mmol/L (3.5-5.1) H 01/30/22 12:03 Chloride 94 mmol/L (98-107) L 01/30/22 12:03 Carbon Dioxide 41 mmol/L (22-29) H 01/30/22 12:03 Anion Gap 9.9 (5-19) 01/30/22 12:03 BUN 22 mg/dL (8-23) 01/30/22 12:03 Creatinine 1.1 mg/dL (0.7-1.2) 01/30/22 12:03 GFR Calculation 67.8 mL/min (90-130) L 01/30/22 12:03 Glucose 216 mg/dL (65-115) H 01/30/22 12:03 Calculated Osmolality 298 mOsm/kg (285-295) H 01/30/22 12:03 Lactic Acid 1.0 mmol/L (0.5-2.2) 01/30/22 12:49 Calcium 9.1 mg/dL (8.5-10.5) 01/30/22 12:03 Total Bilirubin 0.4 mg/dL (0.15-1.2) 01/30/22 12:03 AST 14 U/L (0-40) 01/30/22 12:03 ALT 15 U/L (0-41) 01/30/22 12:03 Alkaline Phosphatase 104 U/L (40-130) 01/30/22 12:03 Creatine Kinase 71 U/L (39-308) 01/30/22 12:03 Troponin T Baseline 35 ng/L (0-15) H 01/30/22 12:03 NT-Pro-B Natriuret Pep 2048 pg/mL (0-125) H 01/30/22 12:03 Total Protein 6.9 g/dL (6.6-8.7) 01/30/22 12:03 Albumin 3.8 g/dL (3.5-5.2) 01/30/22 12:03 Globulin 3.1 g/dL (1.3-4.6) 01/30/22 12:03 Urine Color Straw (Yellow) 01/30/22 12:49 Urine Appearance Clear (CLEAR) 01/30/22 12:49 Urine pH 5 (5-7) 01/30/22 12:49 Ur Specific Stanley 1.010 (1.005-1.030) 01/30/22 12:49 Urine Protein Neg (Negative) 01/30/22 12:49 Urine Glucose (UA) Norm (Normal) 01/30/22 12:49 Urine Ketones Negative (Negative) 01/30/22 12:49 Urine Blood Neg (Negative) 01/30/22 12:49 Urine Nitrate Negative (Negative) 01/30/22 12:49 Urine Bilirubin Neg (Negative) 01/30/22 12:49 Urine Urobilinogen Norm mg/dL (Negative) 01/30/22 12:49 Ur Leukocyte Esterase Negative (Negative) 01/30/22 12:49 Laboratory Tests 01/30/22 14:05 Procalcitonin 0.17 A&P Assessment and plan (1) Acute on chronic respiratory failure with hypoxia and hypercapnia: Requiring Bipap presently Associated with confusion Multifactorial from acute on chronic COPD, CHF and variable compliance with bipap/oxygen after apparent aspiration plus minus effect of mucous plugging in the emergency room as evidenced by left-sided opacities and volume loss on the left on chest x-ray after intubation. Initial chest x-ray was clear. (2) Encephalopathy acute: Secondary to hypoxemia, hypercapnia and possibly infectious source (3) CHF (congestive heart failure): Acute on chronic Normally on furosemide plus potassium, spironolactone and nitrates Qualifiers: Heart failure chronicity: acute on chronic Heart failure type: diastolic Qualified Code(s): I50.33 - Acute on chronic diastolic (congestive) heart failure (4) COPD (chronic obstructive pulmonary disease): Clinically acutely exacerbated Chronically has prescriptions for albuterol, advair Chronically on oxygen generally at 4L bnc at rest but lately requiring 6L Qualifiers: COPD type: COPD with acute exacerbation Qualified Code(s): J44.1 - Chronic obstructive pulmonary disease with (acute) exacerbation (5) Anemia: Chronic macrocytic anemia with baseline hemoglobin around 10 or so, currently with lower hemoglobin, possibly from dilution No reported blood loss No available recent anemia labs but review of old records shows that B12 and folate normal in 2012, iron, percent saturation and ferritin normal in 2019 Qualifiers: Anemia type: unspecified type Qualified Code(s): D64.9 - Anemia, unspecified (6) CKD stage 2 due to type 2 diabetes mellitus: Currently with hyperkalemia At baseline creatinine (7) Hypertension: In addition to beta blockade for atrial fibrillation and diuretics + nitrates for CHF, chronically on lisinopril (8) Atrial fibrillation: Currently with RVR secondary to pulmonary issues Usually on beta blockage for rate control Qualifiers: Atrial fibrillation type: longstanding persistent Qualified Code(s): I48.11 - Longstanding persistent atrial fibrillation (9) Chronic anticoagulation: On Eliquis, secondary to atrial fibrillation (10) Dyslipidemia: Chronically on statin Last lipid panel in 06/2020 showed total cholesterol of 180, LDL 111, HDL 25, TG 169 (11) Diabetes mellitus, type II: Chronically on Insuliln Glargine, metformin A1c 9.1 on 12/03/2021 Qualifiers: Diabetes mellitus complication status: with hyperglycemia Diabetes mellitus assisted insulin use: with vermin exterminator use Qualified Code(s): E11.65 - Type 2 diabetes mellitus with hyperglycemia; Z79.4 - residential (current) use of insulin (12) SHERLEY (obstructive sleep apnea): Has Bipap but inconsistent use, per recent Home Health Discharge, he will report compliance but an alondra has shown use only a couple of times in last month (13) BMI 50.0-59.9, adult: Plan Drop in blood pressure after escalation of sedation in the ER currently felt medication related, improved with adjustments to sedation Lymphedema Chronically on duloxetine Chronically on vitamin C, multivitamin, vitamin D, vitamin B12 Recently discharged from home health services, last week Inpatient admission ICU level care Continue respiratory support with ventilator Breathing treatments with DuoNeb and budesonide Initiate broad-spectrum antibiotics Currently avoiding systemic steroids secondary to diabetes but may have to consider COVID testing, blood cultures, MRSA swab, bacterial antigens Stat lactic acid and blood cultures Holding off on IV fluids presently IV diuresis has been ordered Continue monitoring I's and O's closely, daily weights Lord catheter for close monitoring of urine output in ICU patient Check iron, TIBC, B12, folate, Hemoccult, coagulation studies, repeat H&H in the morning Monitor renal function Kayexalate for hyperkalemia We will continue a lower dose of oral metoprolol via NG tube with supplemental IV metoprolol as needed for tachycardia Currently off of home nitrates and lisinopril secondary to low range blood pressures Hold Eliquis currently in the event that he needs any procedures Lovenox at treatment dose in place of Eliquis monitoring closely for any sign of further drop in hemoglobin, Continue home statin therapy Follow-up pending cardiac enzymes Sliding scale insulin with lower-dose long-acting insulin; normally on 80+ units twice per day PPI for GI prophylaxis Lovenox provided VTE prophylaxis; will also add SCDs Central venous line was placed in the emergency room courtesy of ER physician in the left IJ, secondary to difficulty with IV access peripherally, routine central line care Will evaluate for initiation of feeds, even trophic Glucerna in the morning pending clinical course overnight Anticipate discharge either home plus or minus home health versus even potential need for placement pending on clinical course Supportive care otherwise Plans were discussed with patient's significant other and she was given an opportunity ask questions. Patient did seem to know that he was in the hospital but required repeated reorientation, was not cooperative with wearing BiPAP and was not able to converse about wishes regarding resuscitation before clinical condition worsened. Full code Procedures Intubation Time out performed: Yes Sedative: etomidate Mg given: 80 Paralytic: vecuronium Mg given: 18 Laryngoscope: fiber optic video scope Assist device used: fiber optic device ET tube size: 8 ET tube uncuffed: Yes Tube secured depth (cm): 23 Tube secured location: lips Tube placement confirmation: visualized tube passing through cords, equal breath sounds bilaterally, no breath sounds over epigastrium and color change noted Patient tolerated procedure: well Intubation complications: none Additional comments: Several attempts made at NG/OG tube placement by nursing staff as well as myself including with laryngoscope before successful OG tube placement. Patient had copious amounts of saliva and mucus noted shortly after intubation. No visible vomiting prior to intubation or after. Post intubation chest x-ray with significant opacification of left lung which is drastically changed from chest x-ray upon arrival which was clear. ET tube and NG tube were confirmed to be in appropriate location as well as central venous line. No pneumothorax noted. Central venous line was placed by Dr. Roman in the ER in the left IJ. Attestations Medical Necessity Statement*: Anticipated stay greater than two midnights in a morbidly and a morbidly obese gentleman with acute on chronic respiratory failure with hypoxemia and hypercapnia related to acute on chronic CHF and COPD. Subsequently noted to have volume loss and opacities in the left from mucous plugging plus or minus aspiration. Has comorbid medical issues as described above. Currently requiring respiratory and other clinical support as described. Coding Level of Care Code Acute Combination Man for [facility] Fwd Diagnoses Acute on chronic respiratory failure with hypoxia and hypercapnia J96.21; J96.22 Encephalopathy acute G93.40 CHF (congestive heart failure) I50.33 Heart failure chronicity: acute on chronic Heart failure type: diastolic COPD (chronic obstructive pulmonary disease) J44.1 COPD type: COPD with acute exacerbation Anemia D64.9 Anemia type: unspecified type CKD stage 2 due to type 2 diabetes mellitus E11.22; N18.2 Hypertension I10 Atrial fibrillation I48.11 Atrial fibrillation type: longstanding persistent Chronic anticoagulation Z79.01 Dyslipidemia E78.5 Diabetes mellitus, type II E11.65; Z79.4 Diabetes mellitus complication status: with hyperglycemia Diabetes mellitus vermin exterminator insulin use: with vermin exterminator use SHERLEY (obstructive sleep apnea) G47.33 BMI 50.0-59.9, adult Z68.43
--- NOTE | 2022-01-30 14:30 | ECG_ITS ---
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 Measurements Intervals [place] Rate: 116 P: [place]: QRS: 90 QRSD: 104 T: 37 QT: 292 QTc: 407 Interpretive Statements ATRIAL FIBRILLATION WITH RAPID VENTRICULAR RESPONSE INCOMPLETE RIGHT BUNDLE BRANCH BLOCK [90+ ms QRS DURATION, TERMINAL R IN V1/V2, 40+ ms S IN I/aVL/V4/V5/V6] ABNORMAL RHYTHM ECG Compared to ECG 12/02/2021 17:18:32 Incomplete right bundle-branch block now present Intraventricular conduction delay no longer present For low Electronically Signed On 01-30-2022 21:33:52 CDT by Gm Mathis M.D. [id number]
[2022-01-30 14:39] LABS: Troponin 5 2HR 34.86 ng/L (0-15)
[2022-01-30 14:41] LABS: Troponin 5 2HR Delta -0.14 ABS# (0-10)
[2022-01-30 14:58] LABS: ABG PH Result 7.32 (7.35-7.45); Alveolar-Arterial Oxygen Gradi 22.1 mmHg (5-10); Arterial Blood Gas Hematocrit 26.3 % (42-52); Base Excess ABG 14.5 mmol/L (-2.0-2.0); Blood Gas Allen Test Pos; Blood Gas Operator Identificat CAK; Blood Gas Sample Site Brachial, left; Blood Gas Sample Type Arterial; Carboxyhemoglobin 1.6 %THgb (0.4-20.1); Ionized Calcium Level - ABG 1.4 mmol/L (1.1-1.4); Methemoglobin 0.6 % (0.4-1.5); Oxygen Device BIPAP; Oxygen Saturation ABG 97.1; PO2 ABG 88.7 mmHg (80.0-100.0); Potassium Level - ABG 5.4 mmol/L (3.5-5.0); Total Hemoglobin 8.6 g/dL (14-18)
[2022-01-30] MEDS: vecuronium 10 mg SDV 18 MG IVP ×2 (15:20→17:15)
--- NOTE | 2022-01-30 15:35 | XRR_ITS ---
PROCEDURE INFORMATION: Exam: XR Chest Exam date and time: 01/30/2022 3:49 PM Age: 61 years old Clinical indication: Device placement; Ett placement (vent status); Additional info: Post intubation tube placment TECHNIQUE: Imaging protocol: Radiologic exam of the chest. Views: 1 view. COMPARISON: CR XR chest 1V portable [id number] 01/30/2022 12:11 PM FINDINGS: Tubes, catheters and devices: Endotracheal tube is 4.9 cm above the paco. Left central line is in the SVC. Lungs: There is left lung volume loss and lower lobe opacity present. Possible pneumonia. The upper left lung shows interstitial densities. The findings were not seen on prior examination. Pleural spaces: Unremarkable. No pleural effusion. No pneumothorax. Heart/Mediastinum: Unremarkable. No cardiomegaly. Displaced to the left hemithorax Bones/joints: Unremarkable. XR/XR chest 1V portable [id number] IMPRESSION: 1. Severe volume loss left hemithorax. 2. Left lower lobe opacities are seen new since prior possible pneumonia 3. Endotracheal tube is above the paco 4. Left central line is in the SVC. 5. The right lung is hyperexpanded and clear. 6. The heart and mediastinum are displaced into the left hemithorax.
[2022-01-30 16:53] LABS: Procalcitonin 0.17 ng/mL (0-0.5)
[2022-01-30] MEDS: ipratropium-albuterol 3 mL Neb INHALATION ×2 (17:15→19:52)
[2022-01-30 17:25] LABS: ABG PH Result 7.38 (7.35-7.45); Arterial Blood Gas Hematocrit 26.2 % (42-52); Base Excess ABG 14.9 mmol/L (-2.0-2.0); Blood Gas Allen Test Pos; Blood Gas Operator Identificat CAK; Blood Gas Sample Site Radial, left; Blood Gas Sample Type Arterial; Blood Gas Tidal Volume 0.45; HCO3 ABG 42.1 mmol/L (22-26); Oxygen Device VENT; PO2 ABG 96.6 mmHg (80.0-100.0)
[2022-01-30 17:26] LABS: ABG PCO2 71.2 mmHg (35-45)
[2022-01-30 17:27] LABS: ABG PCO2 84.4 mmHg (35-45)
[2022-01-30] MEDS: propofol 1,000 MG/100 ML INJ 21.77 MG IV (17:27)
[2022-01-30 17:30] LABS: Lactic Sepsis W/Reflex 0.9 mmol/L (0.5-2.2)
--- NOTE | 2022-01-30 17:44 | XRR_ITS ---
PROCEDURE INFORMATION: Exam: XR Chest Exam date and time: 01/30/2022 5:48 PM Age: 61 years old Clinical indication: Other: Og placement; Additional info: Og tube placement TECHNIQUE: Imaging protocol: Radiologic exam of the chest. Views: 1 view. COMPARISON: CR XR chest 1V portable [id number] 01/30/2022 3:49 PM FINDINGS: Tubes, catheters and devices: Endotracheal tube is in satisfactory position. Left jugular central venous catheter tip is in the superior vena cava. Endotracheal tube tip is 5 cm above the paco. Nasogastric tube tip is in the stomach. Lungs: There is increasing atelectasis at the right lung base. There is increase in left pulmonary opacity and volume loss, likely worsening atelectasis. Pleural spaces: Unremarkable. No pleural effusion. No pneumothorax. Heart/Mediastinum: Unremarkable. No cardiomegaly. Bones/joints: Unremarkable. XR/XR chest 1V portable [id number] IMPRESSION: Increasing atelectasis, mild at the right lung base and severe on the left
--- NOTE | 2022-01-30 17:55 | PC.NURSE ---
IV IN R AC REMOVED D/T NON FUNCTIONING
[2022-01-30] MEDS: sodium polystyrene sulfonate 15 gm/60 mL Btl 30 GM PO (18:28)
--- NOTE | 2022-01-30 18:30 | ECG_ITS ---
[facility] Test Date: 2022-01-30 Pat Name: Wayne Nicholson Department: Room: ICU12 Gender: Male Hand Funnel Coater: : 1960 Requested By: Grayson Tam Order Number: [id number] Marcello MD: Gm Mathis M.D. Measurements Intervals [place] Rate: 104 P: MN: QRS: 70 QRSD: 100 T: 30 QT: 300 QTc: 395 Interpretive Statements Atrial fibrillation with rapid ventricular rate LOW QRS VOLTAGE IN PRECORDIAL LEADS [QRS DEFLECTION < 1.0 mV IN CHEST LEADS] INCOMPLETE RIGHT BUNDLE BRANCH BLOCK [90+ ms QRS DURATION, TERMINAL R IN V1/V2, 40+ ms S IN I/aVL/V4/V5/V6] ABNORMAL RHYTHM ECG Compared to ECG 01/30/2022 14:30:21 Low QRS voltage now present Electronically Signed On 01-30-2022 21:35:57 CDT by Gm Mathis M.D. [id number]
[2022-01-30 19:38] LABS: Adenovirus Not Detected (NOT DETECT); Chlamydia Pneumoniae Not Detected (NOT DETECT); Coronavirus 229E,HKU1,NL63,OC4 Not Detected (NOT DETECT); Human Metapneumovirus Not Detected (NOT DETECT); Human Rhinovirus/Enterovirus Not Detected (NOT DETECT); Influenza A Not Detected (NOT DETECT); Influenza A H1 Not Detected (NOT DETECT); Influenza A H1-2009 Not Detected (NOT DETECT); Influenza A H3 Not Detected (NOT DETECT); Influenza B Not Detected (NOT DETECT); Mycoplasma Pneumoniae Not Detected (NOT DETECT); Parainfluenza Virus Type 1 Not Detected (NOT DETECT); Parainfluenza Virus Type 2 Not Detected (NOT DETECT); Parainfluenza Virus Type 3 Not Detected (NOT DETECT); Parainfluenza Virus Type 4 Not Detected (NOT DETECT); Respiratory Syncytial Virus A Not Detected (NOT DETECT); Respiratory Syncytial Virus B Not Detected (NOT DETECT); SARS-COV-2 Not Detected (NOT DETECT)
[2022-01-30] MEDS: budesonide 0.5 mg/2 mL Neb INHALATION (19:52)
[2022-01-30] MEDS: propofol 1,000 MG/100 ML INJ 38.1 MG IV (20:07)
[2022-01-30] MEDS: FUROsemide 10 mg/mL SDV 10mL 60 MG IVP (20:14)
[2022-01-30] MEDS: pantoprazole 40 mg SDV IVP (20:14)
[2022-01-30] MEDS: atorvastatin 40 mg Tablet 80 MG PO (20:15)
[2022-01-30] MEDS: duloxetine 60 mg Capsule PO (20:15)
[2022-01-30] MEDS: enoxaparin 150 mg/mL Syringe SUBCUT (21:16)
[2022-01-30] MEDS: metoprolol tartrate 25 mg Tablet PO (21:16)
[2022-01-30] MEDS: docusate sodium 10 mg/mL (5ml) Liq 100 MG PO (21:17)
[2022-01-30] MEDS: insulin glargine 100 units/1 mL 5 UNIT SUBCUT (21:18)
[2022-01-30] MEDS: insulin lispro 100 unit/1 mL SUBCUT (21:33)
[2022-01-30 21:37] LABS: Glucose Point of Care 234 mg/dL (70-110)
[2022-01-30] MEDS: propofol 1,000 MG/100 ML INJ 43.55 MG IV (22:33)
[2022-01-31] VITALS (72 sets, daily range): BP systolic 79–145; BP diastolic 44–89; PULSE 71–122; RESP 7–20; TEMP 36.4–37.2; O2SAT 84–100
[2022-01-31] MEDS: propofol 1,000 MG/100 ML INJ 43.55 MG IV ×5 (00:36→10:09)
[2022-01-31] MEDS: ipratropium-albuterol 3 mL Neb INHALATION ×5 (03:13→20:07)
[2022-01-31 03:33] LABS: ABG PCO2 57.3 mmHg (35-45); ABG PH Result 7.47 (7.35-7.45); Arterial Blood Gas Hematocrit 25.5 % (42-52); Base Excess ABG 15.6 mmol/L (-2.0-2.0); Blood Gas Allen Test Pos; Blood Gas Sample Site Radial, right; Blood Gas Sample Type Arterial; Blood Gas Tidal Volume 0.45; HCO3 ABG 41.2 mmol/L (22-26); Oxygen Device VENT; PO2 ABG 73.7 mmHg (80.0-100.0)
--- NOTE | 2022-01-31 04:00 | XRR_ITS ---
PROCEDURE INFORMATION: Exam: XR Chest Exam date and time: 01/31/2022 4:43 AM Age: 61 years old Clinical indication: Condition or disease; Lung condition and disease; Other: Right opacities; Additional info: Right opacities, intubated TECHNIQUE: Imaging protocol: Radiologic exam of the chest. Views: 1 view. COMPARISON: CR (CHEST, ) 01/30/2022 5:48 PM FINDINGS: Tubes, catheters and devices: Endotracheal tube terminates approximately 5 cm above the paco. Left IJ central venous catheter terminates in the region of the superior cavoatrial junction. NG tube passes into the stomach. Lungs: Similar atelectasis involving the majority of the left lung. Similar patchy right basilar airspace opacity. Pleural spaces: Possible small bilateral pleural effusions. No pneumothorax. Heart/Mediastinum: There is some leftward mediastinal shift. Bones/joints: Unremarkable. XR/XR chest 1V portable 42005 IMPRESSION: 1. No substantial interval change. There is again complete opacification of the left hemithorax, likely largely due to atelectasis. 2. Similar right basilar airspace disease. 3. Possible small bilateral pleural effusions. 4. Stable positioning of support apparatus.
[2022-01-31 04:28] LABS: INR 1.37 (0.8-1.2)
[2022-01-31 04:29] LABS: Partial Thromboplastin Time 41.4 SECONDS (23.9-36.7)
[2022-01-31 04:41] LABS: Alanine Aminotransferase 15 U/L (0-41); Albumin Level 3.1 g/dL (3.5-5.2); Alkaline Phosphatase 81 U/L (40-130); Anion Gap 13.5 (5-19); Aspartate Amino Transferase 37 U/L (0-40); Blood Urea Nitrogen 31 mg/dL (8-23); Calcium 9.3 mg/dL (8.5-10.5); Carbon Dioxide 39 mmol/L (22-29); Chloride 93 mmol/L (98-107); Globulin 3.1 g/dL (1.3-4.6); Glomerular Filtration Rate 47.4 mL/min (90-130); Glucose 201 mg/dL (65-115); Magnesium 2.1 mg/dL (1.7-2.3); Osmolality Calculated 304 mOsm/kg (285-295); Phosphorus 3.1 mg/dL (2.5-4.5); Potassium 4.5 mmol/L (3.5-5.1); Sodium 141 mmol/L (136-145); Total Bilirubin 0.4 mg/dL (0.15-1.2); Total Protein 6.2 g/dL (6.6-8.7); Uric Acid 7.3 mg/dL (3.4-7.0)
[2022-01-31 04:45] LABS: Procalcitonin 0.24 ng/mL (0-0.5)
[2022-01-31 04:55] LABS: Folate Level 18.2 ng/mL (4.5-32.2)
[2022-01-31 04:57] LABS: Iron 17 ug/dL (59-158); Percent Saturation 8.9 % (20-50); Total Iron Binding Capacity 191 mcg/dl; Unsaturated Iron Binding 174 ug/dL (112-347)
[2022-01-31 05:16] LABS: Vitamin B12 1289 pg/mL (232-1245)
[2022-01-31] MEDS: nystatin powder 15 gm Btl 1 APPLIC TOPICAL ×2 (05:39→18:20)
[2022-01-31] MEDS: pantoprazole 40 mg SDV IVP ×2 (07:58→20:58)
[2022-01-31 08:16] LABS: Glucose Point of Care 210 mg/dL (70-110)
[2022-01-31] MEDS: budesonide 0.5 mg/2 mL Neb INHALATION ×2 (08:34→20:07)
[2022-01-31] MEDS: docusate sodium 10 mg/mL (5ml) Liq 100 MG PO ×2 (10:23→21:03)
[2022-01-31] MEDS: metoprolol tartrate 25 mg Tablet PO ×2 (10:23→21:02)
[2022-01-31] MEDS: FUROsemide 10 mg/mL SDV 10mL 60 MG IVP ×2 (10:23→20:57)
[2022-01-31] MEDS: insulin lispro 100 unit/1 mL SUBCUT ×4 (10:24→21:22)
[2022-01-31] MEDS: enoxaparin 150 mg/mL Syringe SUBCUT ×2 (10:25→21:03)
[2022-01-31] MEDS: insulin glargine 100 units/1 mL 5 UNIT SUBCUT (10:25)
--- NOTE | 2022-01-31 13:46 | P.PN_ITS ---
Subjective Subjective: Intubated, sedated. Visited by his life partner. Vitals/I&O/Wt Last Vital Signs Pulse 110 H 01/31/22 11:31 Resp 16 01/31/22 11:27 BP 123/78 01/31/22 11:00 Pulse Ox 94 01/31/22 11:30 O2 Del Method 01/31/22 11:26 O2 Flow Rate 6 01/30/22 11:56 FiO2 45 01/31/22 11:27 01/30/22 01/31/22 01/31/22 22:59 06:59 14:59 Intake Total 650.000 / 650.000 500 / 1150.000 569.089 / 569.089 Output Total 2300 / 2300 Balance 650.000 / 650.000 -1800 / -1150.000 569.089 / 569.089 Weight last 48 hrs Weight 199.581 kg Weight 181.437 kg Physical Exam Const: GENERAL APPEARANCE: patient mechanically ventilated NUTRITIONAL APPEARANCE: obese morbidly obese Neck/C-Spine: OTHER: Thick LIJ CVC Resp: AUSCULTATION: rhonchi and diminished lung sounds Cardio: COMMON NORMALS: regular rhythm, S1 normal heart sound present, S2 normal heart sound present and No murmurs present (Cardio) RATE: tachycardic RHYTHM: regular rhythm HEART SOUNDS: S1 normal heart sound present and S2 normal heart sound present GI: COMMON NORMALS: Normal to inspection, nondistended, normoactive bowel sounds present and Soft to palpation PALPATION: Yes Soft to palpation OTHER: Large is Extremity: COMMON NORMALS: no joint enlargement GENERAL: Yes edema (2-3+) Skin: OTHER: BL chronic stasis changes Data : 01/30/22 12:03 01/31/22 03:40 Micro: Microbiology 01/30/22 16:55 Blood Culture - Preliminary Blood SPECIMEN COLLECTED 01/30/22 17:10 Blood Culture - Preliminary Blood SPECIMEN COLLECTED A&P Assessment and plan (1) Acute on chronic respiratory failure with hypoxia and hypercapnia: Continued thick secretions, rhonchi, diminished air entry, COPD exacerbation. This morning attempted conservative measures with continued inhaled steroid, duo nebs, chest vest, continues on antibiotic. However, very thick persistent secretions, left hemithorax white out with suspected atelectasis, mucous plugging. Discussed with cardiothoracic surgery with regards to bronchoscopy, discussed also with his jeniffer at bedside. Multifactorial from acute on chronic COPD, CHF and variable compliance with bipap/oxygen after apparent aspiration plus mucous plugging. (2) Encephalopathy acute: Secondary to hypoxemia, hypercapnia and possibly infectious source (3) CHF (congestive heart failure): Acute on chronic Normally on furosemide plus potassium, spironolactone and nitrates Continue IV Lasix, monitor I&O. Renal function. Noted mild JAMES, creatinine 1.5, however, suspect this may have been secondary to transient hypotension as he otherwise appears still volume overloaded. Qualifiers: Heart failure type: diastolic Heart failure chronicity: acute on chronic Qualified Code(s): I50.33 - Acute on chronic diastolic (congestive) heart failure (4) COPD (chronic obstructive pulmonary disease): Severe COPD exacerbation as above. And Solu-Medrol. Chronically has prescriptions for albuterol, advair Chronically on oxygen generally at 4L bnc at rest but lately requiring 6L Qualifiers: COPD type: COPD with acute exacerbation Qualified Code(s): J44.1 - Chronic obstructive pulmonary disease with (acute) exacerbation (5) Anemia: Iron deficiency anemia, B12 normal. Folic acid normal. As microcytic consider follow-up MMA. With iron deficiency anemia depending on the last endoscopic evaluation would benefit from follow-up. Chronic macrocytic anemia with baseline hemoglobin around 10 or so, currently with lower hemoglobin, possibly from dilution No reported blood loss No available recent anemia labs but review of old records shows that B12 and folate normal in 2011, iron, percent saturation and ferritin normal in 2019 Qualifiers: Anemia type: unspecified type Qualified Code(s): D64.9 - Anemia, unspecified (6) CKD stage 2 due to type 2 diabetes mellitus: Currently with hyperkalemia. Received Kayexalate. JAMES on CKD, creatinine up to 1.5, suspect secondary to transient hypotension. He is weaned off pressor. Currently maintaining blood pressure. Hold lisinopril. (7) Hypertension: In addition to beta blockade for atrial fibrillation and diuretics + nitrates for CHF, chronically on lisinopril which is currently on hold (8) Atrial fibrillation: Currently with RVR secondary to pulmonary issues Usually on beta blockage for rate control Eliquis changed to Lovenox. Continue. Qualifiers: Atrial fibrillation type: longstanding persistent Qualified Code(s): I48.11 - Longstanding persistent atrial fibrillation (9) Chronic anticoagulation: On Eliquis, secondary to atrial fibrillation (10) Dyslipidemia: Chronically on statin Last lipid panel in 06/2020 showed total cholesterol of 180, LDL 111, HDL 25, TG 169 (11) Diabetes mellitus, type II: Chronically on Insuliln Glargine, metformin A1c 9.1 on 12/03/2021 Continue sliding scale insulin. I see Toujeo 90 units in a.m., 80 in p.m. Curr ently NPO. Reduced dose of Lantus. 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 shelter use Qualified Code(s): E11.65 - Type 2 diabetes mellitus with hyperglycemia; Z79.4 - skilled nursing (current) use of insulin (12) SHERLEY (obstructive sleep apnea): Has Bipap but inconsistent use, per recent Home Health Discharge, he will report compliance but an alondra has shown use only a couple of times in last month (13) BMI 50.0-59.9, adult: Plan Lymphedema Chronically on duloxetine Chronically on vitamin C, multivitamin, vitamin D, vitamin B12 Recently discharged from home health services, last week Anticipate discharge either home plus or minus home health versus even potential need for placement pending on clinical course Attestations Medical Necessity Statement*: Continue admission for assessment management of hypoxic and hypercapnic respiratory failure with severe exacerbation of PE, pneumonia, aspiration pneumonia, CHF exacerbation and gentleman with BMI 61.4, SHERLEY and additional comorbidities as above. Critical Care Time: The high probability of a clinically significant, sudden or life threatening deterioration of the patient's respiratory, cardiac system(s) required my full and direct attention, intervention and personal management. The critical care time is as shown. This time is in addition to time spent performing any reported procedures but includes the following: x Data and vital sign review and interpretation x Patient assessment, examination and intervention x Documentation x Medication orders and management Critical Care Time (min): 45 Coding Level of Care Code Acute [place] Registered Nurse Rn for Antonette Avila Diagnoses Acute on chronic respiratory failure with hypoxia and hypercapnia J96.21; J96.22 Encephalopathy acute G93.40 CHF (congestive heart failure) I50.33 Heart failure type: diastolic Heart failure chronicity: acute on chronic COPD (chronic obstructive pulmonary disease) J44.1 COPD type: COPD with acute exacerbation Anemia D64.9 Anemia type: unspecified type CKD stage 2 due to type 2 diabetes mellitus E11.22; N18.2 Hypertension I10 Atrial fibrillation I48.11 Atrial fibrillation type: longstanding persistent Chronic anticoagulation Z79.01 Dyslipidemia E78.5 Diabetes mellitus, type II E11.65; Z79.4 Diabetes mellitus complication status: with hyperglycemia 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
[2022-01-31 14:53] LABS: Glucose Point of Care 179 mg/dL (70-110)
--- NOTE | 2022-01-31 14:56 | PM.CONSULT ---
Providers/Reason For Consult Consulting Physician/Specialty*: Dr. Griffin/cardiothoracic surgery Reason for Consult*: Left hemithorax opacification with suspected left lung atelectasis Requesting Physician: Dr. Ortez Attending Physician: Corey Ortez Primary Care Provider: Mason Giles MD History of Present Illness History of Present Illness Wayne Nicholson is a 61 year old male currently sedated and orally intubated in ICU bed 12 after presenting with acute respiratory failure with a history of chronic respiratory failure and CHF. He is required oral intubation and IV sedation and currently is on Primaxin and vancomycin. He is also receiving Lasix twice daily for CHF. His initial relatively clear chest x-ray has now revealed complete opacification of left hemithorax, most consistent with atelectasis or perhaps mucous plugging. As pulmonary services are not readily available, I been consulted for bedside bronchoscopy to assist with assessment and hopefully clearance of the airway. Review of Systems General: Reports: ROS unobtainable due to mental status Narrative: Chart review and upon interview with patient's family, reported chronic O2 dependency usually 3 to 4 L with past several days of increasing dyspnea and easy fatigability and increasing oxygen requirements. No reported fever or productive cough was noted. Medications/Allergies Home Medications Medication Instructions Recorded Confirmed Last Taken Type multivitamin 1 tab PO DAILY 05/15/19 01/30/22 01/30/22 History concentrator and homefill oxygen #1 ea 09/30/20 01/30/22 Unknown Rx system blood sugar diagnostic #100 ea 03/10/21 01/30/22 Unknown Rx pen needle, diabetic 29 gauge x #100 ea 03/10/21 01/30/22 Unknown Rx 1/2 (Comfort EZ Pen [place]) blood-glucose meter (OneTouch #1 ea 03/14/21 01/30/22 Unknown Rx Ultra2 Meter kit) lancets (OneTouch UltraSoft #100 ea 03/14/21 01/30/22 Unknown Rx Lancets) metformin 1,000 mg tablet 1,000 mg PO BID #180 tabs 04/18/21 01/30/22 01/30/22 Rx blood-glucose meter,continuous #1 ea 06/07/21 01/30/22 Unknown Rx (Dexcom G6 Manager Payer misc) blood-glucose sensor (Dexcom G6 #3 ea 06/07/21 01/30/22 Unknown Rx Sensor device) blood-glucose transmitter (Dexcom #1 ea 06/07/21 01/30/22 Unknown Rx G6 Transmitter device) apixaban 5 mg tablet (Eliquis) 5 mg PO BID #180 tabs 10/27/21 01/30/22 01/30/22 Rx albuterol sulfate 90 mcg/actuation 2 puff inhalation Q6H PRN 12/02/21 01/30/22 01/30/22 History aerosol inhaler (ProAir HFA) Shortness Of Breath atorvastatin 80 mg tablet 80 mg PO QAM 12/02/21 01/30/22 01/30/22 History cholecalciferol (vitamin D3) 50 100 mcg PO DAILY 12/02/21 01/30/22 01/30/22 History mcg (2,000 unit) tablet (Vitamin D3) isosorbide mononitrate 30 mg 15 mg PO QAM 12/02/21 01/30/22 01/30/22 History tablet,extended release 24 hr lisinopril 10 mg tablet 5 mg PO BEDTIME 12/02/21 01/30/22 01/29/22 History spironolactone 25 mg tablet 25 mg PO QAM 12/02/21 01/30/22 01/30/22 History albuterol sulfate 2.5 mg/3 mL 2.5 mg (3 mL) inhalation QID PRN 12/05/21 01/30/22 Unknown Rx (0.083 %) solution for nebulization shortness of breath or wheezing #75 mL fluticasone propionate 45 2 inh inhalation Q12H #12 grams 12/05/21 01/30/22 01/30/22 Rx mcg-salmeterol 21 mcg/actuation HFA inhaler (Advair HFA) furosemide 40 mg tablet (Lasix) 40 mg PO QAM #60 tabs 12/05/21 01/30/22 01/30/22 Rx insulin glargine U-300 conc 300 See Rx Instructions SUBCUT DAILY 12/05/21 01/30/22 01/30/22 Rx unit/mL (3 mL) subcutaneous pen #18 mL metoprolol tartrate 100 mg tablet 100 mg PO BID #60 tabs 01/23/22 01/30/22 01/27/22 Rx ascorbic acid (vitamin C) 500 mg 500 mg PO DAILY 01/30/22 01/30/22 01/30/22 History tablet,extended release (Vitamin C ER) cyanocobalamin (vitamin B-12) 100 100 mcg PO DAILY 01/30/22 01/30/22 01/30/22 History mcg tablet (Vitamin B-12) duloxetine 60 mg capsule,delayed 60 mg PO BEDTIME 01/30/22 01/30/22 01/29/22 History release potassium chloride 20 mEq 10 meq PO BEDTIME 01/30/22 01/30/22 01/29/22 History tablet,extended release Allergies Allergy/AdvReac Type Severity Reaction Status Date / Time No Known Allergies Allergy Verified 01/30/22 12:57 Current Medications Generic Name Dose Route Start Last Admin Trade Name Freq PRN Reason Stop Dose Admin Albuterol/Ipratropium 3 ml 01/30/22 16:59 01/31/22 11:23 Ipratropium-Albuterol 3 Ml Neb INHALATION 3 ml Q4H PRN Administration SHORTNESS OF BREATH Albuterol/Ipratropium 3 ml 01/30/22 20:00 01/31/22 14:04 Ipratropium-Albuterol 3 Ml Neb INHALATION 3 ml Q6H.RESP SOLOMON Administration Atorvastatin Calcium 80 mg 01/30/22 21:00 01/30/22 20:15 Atorvastatin 40 Mg Tablet PO 80 mg BEDTIME SOLOMON Administration Budesonide 0.5 mg 01/30/22 20:00 01/31/22 08:34 Budesonide 0.5 Mg/2 Ml Neb INHALATION 0.5 mg BID.RESPIRATORY SOLOMON Administration Docusate Sodium 100 mg 01/30/22 21:00 01/31/22 10:23 Docusate Sodium 10 Mg/Ml (5ml) Liq PO 100 mg BID@0900,2100 SOLOMON Administration Duloxetine HCl 60 mg 01/30/22 21:00 01/30/22 20:15 Duloxetine 60 Mg Capsule PO 60 mg BEDTIME SOLOMON Administration Enoxaparin Sodium 150 mg 01/30/22 21:00 01/31/22 10:25 Enoxaparin 150 Mg/Ml Syringe SUBCUT 150 mg Q12H SOLOMON Administration Furosemide 60 mg 01/30/22 21:00 01/31/22 10:23 Furosemide 10 Mg/Ml Sdv 10ml IVP 60 mg Q12H SOLOMON Administration Heparin Sodium (Porcine) 200 - 500 unit 01/30/22 16:55 01/31/22 02:10 Heparin Lock Flush 500 Unit/5 Ml Syringe IV Not Given Q12H SOLOMON Propofol 1,000 mg in 100 mls @ 0 mls/hr 01/30/22 15:15 01/31/22 10:09 Diprivan IV 30 mcg/kg/min .Q0M SOLOMON 32.66 mls/hr Titration Protocol Per Protocol Imipenem/Cilastatin Sodium 500 100 mls @ 200 mls/hr 01/30/22 17:00 01/31/22 07:58 mg/ Sodium Chloride IV 200 mls/hr Q6H SOLOMON Administration Protocol Fentanyl 1,000 mcg/ Sodium 100 mls @ 0 mls/hr 01/30/22 16:55 01/31/22 03:35 Chloride IV Infused .Q0M SOLOMON Titration Protocol Per Protocol Norepinephrine Bitartrate 4 mg 254 mls @ 0 mls/hr 01/30/22 18:30 01/31/22 10:41 / Dextrose IV 0 mcg/min .Q0M SOLOMON 0 mls/hr Titration Protocol Per Protocol Vancomycin HCl 1,500 mg/ 250 mls @ 166.667 mls/hr 01/30/22 18:30 01/31/22 06:30 Sodium Chloride IV 150 mls/hr Q12H SOLOMON Administration Fentanyl 2,500 mcg/ Sodium 250 mls @ 0 mls/hr 01/30/22 22:15 01/31/22 10:42 Chloride IV 130 mcg/hr .Q0M SOLOMON 13 mls/hr Titration Protocol Per Protocol Insulin Human Lispro 0 unit 01/30/22 21:00 01/30/22 21:33 Insulin Lispro 100 Unit/1 Ml SUBCUT 3 unit BEDTIME SOLOMON Administration Protocol Insulin Human Lispro 0 unit 01/30/22 18:00 01/31/22 10:24 Insulin Lispro 100 Unit/1 Ml SUBCUT 4 unit TIDWM SOLOMON Administration Protocol Metoprolol Tartrate 25 mg 01/30/22 21:00 01/31/22 10:23 Metoprolol Tartrate 25 Mg Tablet PO 25 mg BID@0900,2100 SOLOMON Administration Nystatin 1 applic 01/31/22 09:00 01/31/22 05:39 Nystatin Powder 15 Gm Btl TOPICAL 1 applic BID SOLOMON Administration Pantoprazole Sodium 40 mg 01/30/22 20:00 01/31/22 07:58 Pantoprazole 40 Mg Sdv IVP 40 mg Q12H SOLOMON Administration Sodium Chloride 5 - 10 ml 01/30/22 16:55 01/31/22 02:10 Sodium Chloride 0.9 % (Flush) Syringe 10 Ml IV Not Given Q12H SOLOMON PFSH Acute PFSH: Medical History Atrial fibrillation CHF (congestive heart failure) CKD stage 2 due to type 2 diabetes mellitus COPD (chronic obstructive pulmonary disease) Diabetes mellitus, type II Diabetic neuropathy Dyslipidemia History of echocardiogram 2018 EF 65%. no wall motion abnormalities, Grade III/IV Diastolic Dysfunction; report in [employer] History of left heart catheterization 2018 normal coronary arteries; performed by Dr Zaman at [facility], report in [employer] History of right heart catheterization 2018 PCWP 15 mmHg, mean PAP 50 mmHg, responsive to SL NTG with reduction to 39 mmHg, consistent with reversibility; performed by Dr Zaman at [facility], report in [employer] History of sleep study 2018 Moderate obstructive sleep apnea, exacerbated by REM sleep, nocturnal hypoxia, elevated periodic limb movement index with a normal PLM-arousal index, abnormal sleep architecture related to first night effect, respiratory events and medications; report in [employer] Hypertension Morbid obesity SHERLEY (obstructive sleep apnea) Surgical History S/P appendectomy Family History Mother CAD (coronary artery disease) Atrial fibrillation Father Lung disease Unknown Cancer Lung, Breast, Brain Other CHF (congestive heart failure) Social History Smoking and tobacco status: former smoker Alcohol intake: former Substance/Drug Use: former Caregiver/support person: Yes Lives independently: Yes Household members: significant other Vitals/I&O/Wt Last Vital Signs Pulse 109 H 01/31/22 14:04 Resp 16 01/31/22 14:04 BP 123/78 01/31/22 11:00 Pulse Ox 96 01/31/22 14:04 O2 Del Method 01/31/22 14:04 O2 Flow Rate 6 01/30/22 11:56 FiO2 45 01/31/22 14:04 01/30/22 01/31/22 01/31/22 22:59 06:59 14:59 Intake Total 650.000 / 650.000 500 / 1150.000 569.089 / 569.089 Output Total 2300 / 2300 Balance 650.000 / 650.000 -1800 / -1150.000 569.089 / 569.089 Weight last 48 hrs Weight 440 lb Weight 400 lb Physical Exam HENMT: COMMON NORMALS: atraumatic, external ears normal and Normal external nose present HEAD & SCALP: atraumatic NOSE: Normal external nose present EXTERNAL EAR: Yes external ears normal OTHER: Orally intubated Neck/C-Spine: COMMON NORMALS: no lymphadenopathy Resp: AUSCULTATION: crackles, rales and diminished lung sounds on the left Cardio: COMMON NORMALS: regular rate and S1 normal heart sound present RATE: regular rate HEART SOUNDS: S1 normal heart sound present GI: INSPECTION: Yes central obesity AUSCULTATION: Yes Hypoactive bowel sounds present Extremity: NARRATIVE EXTREMITY EXAM: Chronic skin changes consistent with venous stasis disease. 1+ pretibial edema bilaterally. Neuro: OTHER: Unable to assess neurologic status secondary to sedation. Urinary Catheter Management: Lord: Cath Placed During This Visit: no Reason for Continuing Indwelling Catheter: Accurate Measurement of Urinary Output in Critically Ill Patients Data : 01/30/22 12:03 01/31/22 03:40 Micro: Microbiology 01/30/22 16:55 Blood Culture - Preliminary Blood SPECIMEN COLLECTED 01/30/22 17:10 Blood Culture - Preliminary Blood SPECIMEN COLLECTED A&P Assessment and plan (1) Acute on chronic respiratory failure with hypoxia and hypercapnia: We will plan to proceed with bronchoscopy at bedside for further diagnostic assessment and hopeful therapy for this left hemithorax opacification and presumed atelectasis. I have conferred with family members and consent has been reviewed and signed. Consult Attestations Medical Necessity Statement: Acute on chronic respiratory failure requiring ventilatory support with left hemithorax opacification Coding Level of Care Code New Pt Acute Group Home Paraprofessional for Chg Fwd Patient Type New Diagnoses Acute on chronic respiratory failure with hypoxia and hypercapnia J96.21; J96.22
[2022-01-31] MEDS: cetacaine Spray 5 gm Can 1 SPRAY TOPICAL (15:08)
[2022-01-31] MEDS: sodium bicarbonate 1 mEq/mL SDV 50mL 50 MEQ XX (15:10)
--- NOTE | 2022-01-31 15:25 | P.OP_ITS ---
Operative Report Date of procedure: January 31, 2022 Pre-op diagnosis: Opacification left hemithorax with suspected mucous plugging Post-op diagnosis: same Procedure done: Flexible diagnostic/therapeutic bronchoscopy Implants: None Specimens removed/disposition: Tracheal bronchial aspirate from left side and left lower lobe Surgeon: Vinny Griffin Complications: None Findings: Mucous plugging left main bronchus Brief History: Mr. Nicholson is a morbidly obese 61-year-old diabetic gentleman with acute on chronic respiratory failure who has been admitted yesterday required oral intubation and ventilatory support. He has now developed complete opacification of his left upper thorax and bronchoscopy is warranted to assess for possible mucous plugging. This was carefully discussed with family members who provided informed consent. Procedure: Procedure: Mr. Nicholson is currently sedated in the ICU at all intubated. With adequate IV sedation, flexible bronchoscope was inserted through the endotracheal tube. In a methodical fashion the trachea, paco, right main bronchus and associated lo bar bronchi were inspected. In a similar fashion the left side was inspected. Secretions were cleared as needed to allow for adequate inspection. Normal saline or normal saline and bicarbonate solution were used to clear thick or tenacious secretions. Specimens were collected from the left main bronchus and left lower lobe bronchus for culture, and gram stain. Findings: At the level of the main paco there was clear white tenacious mucus plugging of the entire left bronchial tree. There was spillover noted to the right side as well, particular involving the right lower lobe and to lesser degree right middle lobe. Initial inspection was performed to the right side for anatomy assessment and then to the left side for direct aspiration from the left main bronchus to collect specimen for gram stain and culture. Once this was done, saline and saline/bicarbonate solution was utilized to clear secretions and particulate matter from the entire tracheobronchial tree. This was done in a methodical fashion initially on the left side which appear to be the area of greatest burden and then to the right side which was only marginally involved. Once this material was cleared allowed for more methodical inspection which revealed at the main paco was sharp. There was moderate erythema of the mucosa throughout with only minimal bleeding despite the need for aspiration and lavage throughout the entire tracheobronchial tree. There was no evidence for endobronchial lesions once mucous plugging was removed. There was no evidence for submucosal infiltration or extrinsic compression. Despite the mucosal erythema, it was not excessively friable. Once completed, the scope was withdrawn under direct visualization confirming cleared secretions and no substantial bleeding. Endoscopic photos were taken as required to document pathology. The patient tolerated the procedure well and maintained adequate saturation and stable vital signs throughout the procedure. I did eligibility counselor with the family at the completion of the procedure.
[2022-01-31] MEDS: propofol 1,000 MG/100 ML INJ 21.77 MG IV ×2 (15:38→18:26)
[2022-01-31] MEDS: guaiFENesin 600 mg Tablet 1200 MG PO (18:20)
[2022-01-31 18:47] LABS: Glucose Point of Care 175 mg/dL (70-110)
[2022-01-31] MEDS: acetylcysteine 200 mg/mL SDV 4 mL 100 MG INHALATION (20:07)
[2022-01-31] MEDS: artificial tears Op Oint 3.5 gm 1 APPLIC EYE-BOTH (20:58)
[2022-01-31] MEDS: duloxetine 60 mg Capsule PO (20:58)
[2022-01-31] MEDS: atorvastatin 40 mg Tablet 80 MG PO (20:58)
[2022-01-31] MEDS: insulin glargine 100 units/1 mL 30 UNIT SUBCUT (21:22)
[2022-01-31 22:11] LABS: Glucose Point of Care 241 mg/dL (70-110)
[2022-01-31] MEDS: propofol 1,000 MG/100 ML INJ 20 MG IV (22:19)
--- NOTE | 2022-01-31 23:51 | PC.NURSE ---
Pt in normal sized bed. His arms are up against rails, attempt made to place pillows under his right hip. Large amount of tenacious yellow sputum suctioned from ETT. Pt's at bedside. Pt has significant swelling of his scrotum, which is elevated on a rolled sheet.
[2022-02-01] VITALS (51 sets, daily range): BP systolic 94–122; BP diastolic 60–87; PULSE 72–112; RESP 14–20; TEMP 36.6–37.7; O2SAT 84–97
--- NOTE | 2022-02-01 01:02 | PC.NURSE ---
At 2200 on 01/31/22, pt moved to bariatric bed with assist of 4 nurses and an RT.
[2022-02-01] MEDS: propofol 1,000 MG/100 ML INJ 20 MG IV ×5 (02:39→16:04)
[2022-02-01] MEDS: lanolin oint 7 gm 1 APPLIC TOPICAL (02:40)
[2022-02-01] MEDS: acetylcysteine 200 mg/mL SDV 4 mL 100 MG INHALATION ×4 (03:32→19:59)
[2022-02-01] MEDS: ipratropium-albuterol 3 mL Neb INHALATION ×4 (03:32→20:00)
[2022-02-01 05:26] LABS: Basophils % 0.2 %; Hematocrit 26.8 % (42.0-52.0); Hemoglobin 8.2 g/dL (11.7-16.6); Lymphocytes # 0.5 10^3/uL (0.8-4.8); Lymphocytes % 4.1 %; Mean Corpuscular HGB Conc 30.6 g/dL (30.0-36.0); Mean Corpuscular Hemoglobin 29.6 pg (28.0-34.0); Mean Corpuscular Volume 96.8 fl (80-94); Mean Platelet Volume 11.8 fL (7.4-10.4); Monocytes # 0.1 10^3/uL (0.2-0.9); Monocytes % 0.9 %; Neutrophils # 11.83 10^3/uL (1.8-7.7); Neutrophils % 94.2 %; Nucleated Red Blood Cells % 0 %; Platelet Count 238 10^3/cmm (130-400); Red Blood Count 2.77 10^6/uL (4.1-5.3); Red Cell Distribution Width 15.4 % (12.1-15.1); White Blood Count 12.6 10^3/uL (4.0-10.0)
[2022-02-01 05:47] LABS: Vancomycin Trough 20.4 ug/mL (10-15)
[2022-02-01] MEDS: chlorhexidine gluconate 4% Btl 118 mL 1 APPLIC TOPICAL ×5 (05:47→20:29)
[2022-02-01 05:48] LABS: Alanine Aminotransferase 18 U/L (0-41); Alkaline Phosphatase 86 U/L (40-130); Anion Gap 14.4 (5-19); Aspartate Amino Transferase 43 U/L (0-40); Blood Urea Nitrogen 32 mg/dL (8-23); Calcium 9.1 mg/dL (8.5-10.5); Carbon Dioxide 39 mmol/L (22-29); Chloride 92 mmol/L (98-107); Globulin 3.5 g/dL (1.3-4.6); Glomerular Filtration Rate 51.4 mL/min (90-130); Glucose 278 mg/dL (65-115); Osmolality Calculated 309 mOsm/kg (285-295); Potassium 4.4 mmol/L (3.5-5.1); Sodium 141 mmol/L (136-145); Total Bilirubin 0.4 mg/dL (0.15-1.2); Total Protein 6.5 g/dL (6.6-8.7)
[2022-02-01 05:59] LABS: ABG PH Result 7.42 (7.35-7.45); Alveolar-Arterial Oxygen Gradi 27.4 mmHg (5-10); Base Excess ABG 14.6 mmol/L (-2.0-2.0); Blood Gas Allen Test Pos; Blood Gas Operator Identificat JB; Blood Gas Sample Site Radial, right; Blood Gas Sample Type Arterial; Blood Gas Tidal Volume 0.45; Carboxyhemoglobin 1.2 %THgb (0.4-20.1); HCO3 ABG 42.4 mmol/L (22-26); HGB O2 Sat 90.7 % (95-100); Ionized Calcium Level - ABG 1.1 mmol/L (1.1-1.4); Methemoglobin 0.2 % (0.4-1.5); Oxygen Device VENT; PO2 ABG 66.3 mmHg (80.0-100.0); Potassium Level - ABG 4.1 mmol/L (3.5-5.0); Total Hemoglobin 13.7 g/dL (14-18)
[2022-02-01 06:06] LABS: ABG PCO2 66.2 mmHg (35-45)
[2022-02-01] MEDS: budesonide 0.5 mg/2 mL Neb INHALATION ×2 (08:42→20:00)
[2022-02-01 09:59] LABS: Glucose Point of Care 298 mg/dL (70-110)
[2022-02-01] MEDS: pantoprazole 40 mg SDV IVP ×2 (09:59→20:29)
[2022-02-01] MEDS: insulin lispro 100 unit/1 mL SUBCUT ×4 (10:06→20:28)
[2022-02-01] MEDS: FUROsemide 10 mg/mL SDV 10mL 60 MG IVP ×2 (10:08→20:28)
[2022-02-01] MEDS: insulin glargine 100 units/1 mL 30 UNIT SUBCUT (10:11)
[2022-02-01] MEDS: nystatin powder 15 gm Btl 1 APPLIC TOPICAL ×2 (10:13→18:08)
[2022-02-01] MEDS: metoprolol tartrate 1 mg/1 mL SDV 5 mL 5 MG IVP (10:14)
[2022-02-01] MEDS: guaiFENesin 600 mg Tablet 1200 MG PO ×2 (10:29→18:05)
[2022-02-01] MEDS: vancomycin 1,250 MG/250 ML PIGGYBACK 200 MG IV ×2 (11:05→22:30)
[2022-02-01] MEDS: docusate sodium 10 mg/mL (5ml) Liq 100 MG PO ×2 (11:41→20:39)
[2022-02-01] MEDS: enoxaparin 150 mg/mL Syringe SUBCUT ×2 (11:42→20:39)
[2022-02-01 11:50] LABS: Glucose Point of Care 301 mg/dL (70-110)
[2022-02-01] MEDS: dexmedeTOMIDine 0.9 % NaCL 400 MCG/100 ML PREMIX IV (15:45)
--- NOTE | 2022-02-01 16:16 | P.PN_ITS ---
Subjective Subjective: He is intubated, mechanically failure, alert this morning, interacting, nodding answers to questions. Family-sister and niece, come into visit with him. He denies pain or discomfort. Breathing is reasonably comfortable, occasional cough. His family stated that he may get very anxious, as he sometimes gets bad anxiety episodes. Discussed with him and with them regarding hemithorax opacification yesterday with mucous plugging with noted mainstem bronchial plugging on bronchoscopy which was cleared out. He is still having significant secretions today and for now not yet ready to extubate, to which he nods understanding regarding continuation of mechanical ventilation support currently with continued weaning and planned reassessment daily for possibility of extubation. Vitals/I&O/Wt Last Vital Signs Temp 98.0 F 02/01/22 16:00 Pulse 76 02/01/22 16:00 Resp 16 02/01/22 16:00 BP 122/87 02/01/22 16:00 Pulse Ox 91 02/01/22 16:00 O2 Del Method 02/01/22 16:00 O2 Flow Rate 50 02/01/22 03:00 FiO2 60 02/01/22 16:00 02/01/22 02/01/22 02/01/22 06:59 14:59 22:59 Intake Total 356.435 / 2156.059 847.249 / 847.249 23.333 / 870.582 Output Total 1250 / 4250 Balance -893.565 / -2093.941 847.249 / 847.249 23.333 / 870.582 Weight last 48 hrs Weight 199.354 kg Weight 199.581 kg Physical Exam Const: GENERAL APPEARANCE: patient mechanically ventilated NUTRITIONAL APPEARANCE: obese morbidly obese Neck/C-Spine: OTHER: Thick LIJ CVC Resp: AUSCULTATION: rhonchi Cardio: COMMON NORMALS: regular rhythm, S1 normal heart sound present, S2 normal heart sound present and No murmurs present (Cardio) RATE: tachycardic RHYTHM: regular rhythm HEART SOUNDS: S1 normal heart sound present and S2 normal heart sound present GI: COMMON NORMALS: Normal to inspection, nondistended, normoactive bowel sounds present and Soft to palpation PALPATION: Yes Soft to palpation OTHER: Large pannus Extremity: COMMON NORMALS: no joint enlargement GENERAL: Yes edema (2-3+) Skin: OTHER: BL chronic stasis changes Urinary Catheter Management: Lord: Cath Placed During This Visit: no Reason for Continuing Indwelling Catheter: Accurate Measurement of Urinary Output in Critically Ill Patients Data : 02/01/22 05:09 02/01/22 05:09 Micro: Microbiology 01/31/22 15:11 Gram Stain - Final Lung Left Lower Lobe - #1 01/30/22 15:45 Gram Stain - Final Sputum - Endotracheal Tube Aspirate Sputum Culture - Preliminary 01/30/22 16:55 Blood Culture - Preliminary Blood NEGATIVE TO DATE 01/30/22 17:10 Blood Culture - Preliminary Blood NEGATIVE TO DATE 01/30/22 17:52 MRSA Culture - Final Nose A&P Assessment and plan (1) Acute on chronic respiratory failure with hypoxia and hypercapnia: Continue to require mechanical ventilatory support for now, still with copious secretions. Head tenacious mucus evacuated yesterday after left hemithorax opacification, with left mainstem bronchus plugging noted on bronchoscopy. Currently continue IV and inhaled steroid, continue antibiotic, breathing treatments, Mucinex, pulmonary toilet, mechanical ventilatory support, continue to wean as tolerating. Discussed we will reassess again tomorrow. Associated with confusion on presentation Multifactorial from acute on chronic COPD, CHF and variable compliance with bipap/oxygen after apparent aspiration plus minus effect of mucous plugging in the emergency room as evidenced by left-sided opacities and volume loss on the left on chest x-ray after intubation. (2) Encephalopathy acute: Appears to be improved, he is awake, alert, nodding answers to questions, following directions. Family report may be prone to bad anxiety, continue sedation currently to keep him easily arousable but calm. Precedex added. Secondary to hypoxemia, hypercapnia and pneumonia. (3) CHF (congestive heart failure): Acute on chronic Normally on furosemide plus potassium, spironolactone and nitrates Continue Lasix 60 mg twice daily IV, monitor I&O, weights. Qualifiers: Heart failure type: diastolic Heart failure chronicity: acute on chronic Qualified Code(s): I50.33 - Acute on chronic diastolic (congestive) heart failure (4) COPD (chronic obstructive pulmonary disease): With severe exacerbation, with copious sputum secretions, continue IV steroid, inhaled steroid, antibiotic coverage with vancomycin, Primaxin. Follow-up sputum cultures. Breathing treatments. Pulmonary toilet. Chronically on oxygen generally at 4L bnc at rest but lately requiring 6L Qualifiers: COPD type: COPD with acute exacerbation Qualified Code(s): J44.1 - Chronic obstructive pulmonary disease with (acute) exacerbation (5) Anemia: Chronic macrocytic anemia with baseline hemoglobin around 10 or so, currently with lower hemoglobin, possibly from dilution No reported blood loss No available recent anemia labs but review of old records shows that B12 and folate normal in 2012, iron, percent saturation and ferritin normal in 2019 Qualifiers: Anemia type: unspecified type Qualified Code(s): D64.9 - Anemia, unspecified (6) CKD stage 2 due to type 2 diabetes mellitus: JAMES on CKD, creatinine better today down to 1.4. Continue diuresis currently, reassess renal function. Hyperkalemia resolved. (7) Hypertension: In addition to beta blockade for atrial fibrillation and diuretics + nitrates for CHF, chronically on lisinopril which is currently on hold. (8) Atrial fibrillation: Initially A. fib with RVR, improved. Currently rate controlled. Continue metoprolol. Lovenox. Qualifiers: Atrial fibrillation type: longstanding persistent Qualified Code(s): I48.11 - Longstanding persistent atrial fibrillation (9) Chronic anticoagulation: On Eliquis, secondary to atrial fibrillation (10) Dyslipidemia: Chronically on statin Last lipid panel in 06/2020 showed total cholesterol of 180, LDL 111, HDL 25, TG 169 (11) Diabetes mellitus, type II: Continue Lantus, sliding scale insulin. We will increase Lantus dose further to 35 units twice daily. 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 Weaned off, although overnight again started on moderate pressor. Currently blood pressure is better, wean off. Continue treatment of pneumonia, possible sepsis as above. Lymphedema Chronically on duloxetine Chronically on vitamin C, multivitamin, vitamin D, vitamin B12 Recently discharged from home health services, last week Anticipate discharge either home plus or minus home health versus even potential need for placement pending on clinical course Attestations Medical Necessity Statement*: Continue admission for management of acute respiratory failure, SIRS be exacerbation, aspiration pneumonia, diastolic CHF exacerbation, and a gentleman with underlying COPD, SHERLEY, morbid obesity. Critical Care Time: The high probability of a clinically significant, sudden or life threatening deterioration of the patient's respiratory, hemodynamic system(s) required my full and direct attention, intervention and personal management. The critical care time is as shown. 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 [employer] Diagnoses Acute on chronic respiratory failure with hypoxia and hypercapnia J96.21; J96.22 Encephalopathy acute G93.40 CHF (congestive heart failure) I50.33 Heart failure type: diastolic Heart failure chronicity: acute on chronic COPD (chronic obstructive pulmonary disease) J44.1 COPD type: COPD with acute exacerbation Anemia D64.9 Anemia type: unspecified type CKD stage 2 due to type 2 diabetes mellitus E11.22; N18.2 Hypertension I10 Atrial fibrillation I48.11 Atrial fibrillation type: longstanding persistent Chronic anticoagulation Z79.01 Dyslipidemia E78.5 Diabetes mellitus, type II E11.65; Z79.4 Diabetes mellitus complication status: with hyperglycemia Diabetes mellitus 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
--- NOTE | 2022-02-01 17:40 | PC.NURSE ---
1700 Flushed central line with 10ml normal saline. Distal port seems positional, but did flush well. Other ports flushed very well.
[2022-02-01 18:24] LABS: Glucose Point of Care 270 mg/dL (70-110)
[2022-02-01] MEDS: propofol 1,000 MG/100 ML INJ 32.66 MG IV ×2 (18:59→22:06)
[2022-02-01 20:24] LABS: Glucose Point of Care 275 mg/dL (70-110)
[2022-02-01] MEDS: insulin glargine 100 units/1 mL 35 UNIT SUBCUT (20:28)
[2022-02-01] MEDS: artificial tears Op Oint 3.5 gm 1 APPLIC EYE-BOTH (20:29)
[2022-02-01] MEDS: atorvastatin 40 mg Tablet 80 MG PO (20:29)
[2022-02-01] MEDS: duloxetine 60 mg Capsule PO (20:29)
[2022-02-01] MEDS: metoprolol tartrate 25 mg Tablet PO (20:39)
[2022-02-02] VITALS (52 sets, daily range): BP systolic 92–137; BP diastolic 63–82; PULSE 65–87; RESP 16–17; TEMP 35.4–36.2; O2SAT 83–96
[2022-02-02] MEDS: chlorhexidine gluconate 4% Btl 118 mL 1 APPLIC TOPICAL ×3 (02:00→20:28)
[2022-02-02] MEDS: propofol 1,000 MG/100 ML INJ 32.66 MG IV ×4 (02:33→10:09)
[2022-02-02] MEDS: ipratropium-albuterol 3 mL Neb INHALATION ×4 (03:14→21:17)
[2022-02-02] MEDS: acetylcysteine 200 mg/mL SDV 4 mL 100 MG INHALATION ×4 (03:14→21:16)
[2022-02-02 03:36] LABS: Basophils % 0.1 %; Hematocrit 26.7 % (42.0-52.0); Hemoglobin 8.2 g/dL (11.7-16.6); Lymphocytes # 0.7 10^3/uL (0.8-4.8); Lymphocytes % 6.7 %; Mean Corpuscular HGB Conc 30.7 g/dL (30.0-36.0); Mean Corpuscular Hemoglobin 29.6 pg (28.0-34.0); Mean Corpuscular Volume 96.4 fl (80-94); Mean Platelet Volume 11.5 fL (7.4-10.4); Monocytes # 0.3 10^3/uL (0.2-0.9); Monocytes % 2.9 %; Neutrophils # 9.27 10^3/uL (1.8-7.7); Neutrophils % 89.7 %; Nucleated Red Blood Cells % 0 %; Platelet Count 225 10^3/cmm (130-400); Red Blood Count 2.77 10^6/uL (4.1-5.3); Red Cell Distribution Width 15.2 % (12.1-15.1); White Blood Count 10.3 10^3/uL (4.0-10.0)
[2022-02-02 04:05] LABS: Alanine Aminotransferase 16 U/L (0-41); Albumin Level 2.9 g/dL (3.5-5.2); Alkaline Phosphatase 79 U/L (40-130); Anion Gap 13.9 (5-19); Aspartate Amino Transferase 30 U/L (0-40); Blood Urea Nitrogen 31 mg/dL (8-23); Calcium 9.1 mg/dL (8.5-10.5); Carbon Dioxide 40 mmol/L (22-29); Chloride 90 mmol/L (98-107); Globulin 3.4 g/dL (1.3-4.6); Glomerular Filtration Rate 51.4 mL/min (90-130); Glucose 310 mg/dL (65-115); Osmolality Calculated 308 mOsm/kg (285-295); Potassium 3.9 mmol/L (3.5-5.1); Sodium 140 mmol/L (136-145); Total Bilirubin 0.3 mg/dL (0.15-1.2); Total Protein 6.3 g/dL (6.6-8.7)
[2022-02-02 07:12] LABS: Glucose Point of Care 325 mg/dL (70-110)
[2022-02-02] MEDS: insulin lispro 100 unit/1 mL SUBCUT ×4 (07:26→20:29)
[2022-02-02] MEDS: pantoprazole 40 mg SDV IVP ×2 (07:26→19:06)
[2022-02-02] MEDS: dexmedeTOMIDine 0.9 % NaCL 400 MCG/100 ML PREMIX 19.94 MCG IV (07:31)
[2022-02-02] MEDS: budesonide 0.5 mg/2 mL Neb INHALATION ×2 (08:02→21:16)
[2022-02-02] MEDS: metoprolol tartrate 25 mg Tablet PO ×2 (08:28→20:29)
[2022-02-02] MEDS: guaiFENesin 600 mg Tablet 1200 MG PO ×2 (08:28→17:06)
[2022-02-02] MEDS: docusate sodium 10 mg/mL (5ml) Liq 100 MG PO (08:29)
--- NOTE | 2022-02-02 08:32 | XRR_ITS ---
PROCEDURE INFORMATION: Exam: XR Chest Exam date and time: 02/02/2022 8:51 AM Age: 61 years old Clinical indication: Other: Hypoxia TECHNIQUE: Imaging protocol: Radiologic exam of the chest. Views: 1 view. COMPARISON: CR XR chest 1V portable [id number] 01/31/2022 4:43 AM FINDINGS: Tubes, catheters and devices: Endotracheal tube is seen without change. Nasogastric tube is seen with distal aspect not seen on the exam. Left internal jugular central venous catheter is seen without change. Lungs: There are unchanged lung volumes. Unchanged complete opacification of the left hemithorax is seen, which may be related to pleural effusion and lobar atelectasis. Decreased right basilar interstitial and patchy airspace opacities are seen. Pleural spaces: No pneumothorax. Heart/Mediastinum: The heart size is unchanged. There is unchanged shift of the mediastinum towards the left. Bones/joints: No acute abnormalities. XR/XR chest 1V portable [id number] IMPRESSION: 1. Lines and tubes, as noted above. 2. Unchanged lung volumes. Unchanged complete opacification of the left hemithorax, which may be related to pleural effusion and lobar atelectasis. Decreased right basilar interstitial and patchy airspace opacities.
[2022-02-02] MEDS: enoxaparin 150 mg/mL Syringe SUBCUT ×2 (08:33→20:45)
[2022-02-02] MEDS: FUROsemide 10 mg/mL SDV 10mL 60 MG IVP ×2 (08:35→20:28)
[2022-02-02] MEDS: nystatin powder 15 gm Btl 1 APPLIC TOPICAL (08:36)
[2022-02-02] MEDS: insulin glargine 100 units/1 mL 35 UNIT SUBCUT ×2 (08:36→20:29)
[2022-02-02] MEDS: vancomycin 1,250 MG/250 ML PIGGYBACK 200 MG IV (09:34)
--- NOTE | 2022-02-02 09:36 | P.CONIM_ITS ---
Providers/Reason For Consult Consulting Physician/Specialty*: Loc Tran MD/Pulmonary Critical Care Reason for Consult*: Difficulty weaning from ventilator in a patient with significant mucus plugging of left lung Requesting Physician: Corey Ortez Attending Physician: Corey Ortez Primary Care Provider: Mason Giles MD History of Present Illness History of Present Illness Wayne Nicholson is a 61 year old male admitted to ICU for acute on chronic hypercapnic respiratory failure. He has several underlying risk factors for respiratory distress-previous medical history of COPD, grade 3/4 diastolic dysfunction, obstructive sleep apnea, obesity hypoventilation syndrome-noncompliant with home BiPAP. Patient's admission chest x-ray was relatively clear-he had an episode of vomiting and repeat chest x-ray revealed complete opacification of left hemithorax-suspicious for mucous plugging causing atelectasis. Patient underwent bronchoscopy on 01/31/[address] surgery, as pulmonary services were not on-call, there were thick mucus secretions on the left tracheobronchial tree which were suctioned. Patient FiO2 requirement increased to 65 from 40% in the last 2 days and pulmonary consulted for worsening chest x-ray with probable mucus secretion pooling and atelectasis on left side again Seen patient at bedside -Currently sedated with fentanyl and on ventilator CMV mode PEEP of 10 and FiO2 60% -I have performed bedside bronchoscopy and removed huge left mainstem mucous plug-did not see any significant mucus plugging beyond mainstem -Cultures from previous BAL are still pending -Other labs and imaging reviewed Review of Systems General: Reports: ROS unobtainable due to endotracheal tube, ROS unobtainable due to medical condition and ROS unobtainable due to mental status Medications/Allergies Home Medications Medication Instructions Recorded Confirmed Last Taken Type multivitamin 1 tab PO DAILY 05/15/19 01/30/22 01/30/22 History concentrator and homefill oxygen #1 ea 09/30/20 01/30/22 Unknown Rx system blood sugar diagnostic #100 ea 03/10/21 01/30/22 Unknown Rx pen needle, diabetic 29 gauge x #100 ea 03/10/21 01/30/22 Unknown Rx 1/2 (Comfort EZ [place]) blood-glucose meter (OneTouch #1 ea 03/14/21 01/30/22 Unknown Rx Ultra2 Meter kit) lancets (OneTouch UltraSoft #100 ea 03/14/21 01/30/22 Unknown Rx Lancets) metformin 1,000 mg tablet 1,000 mg PO BID #180 tabs 04/18/21 01/30/22 01/30/22 Rx blood-glucose meter,continuous #1 ea 06/07/21 01/30/22 Unknown Rx (Dexcom G6 [employer] misc) blood-glucose sensor (Dexcom G6 #3 ea 06/07/21 01/30/22 Unknown Rx Sensor device) blood-glucose transmitter (Dexcom #1 ea 06/07/21 01/30/22 Unknown Rx G6 Transmitter device) apixaban 5 mg tablet (Eliquis) 5 mg PO BID #180 tabs 10/27/21 01/30/22 01/30/22 Rx albuterol sulfate 90 mcg/actuation 2 puff inhalation Q6H PRN 12/02/21 01/30/22 01/30/22 History aerosol inhaler (ProAir HFA) Shortness Of Breath atorvastatin 80 mg tablet 80 mg PO QAM 12/02/21 01/30/22 01/30/22 History cholecalciferol (vitamin D3) 50 100 mcg PO DAILY 12/02/21 01/30/22 01/30/22 History mcg (2,000 unit) tablet (Vitamin D3) isosorbide mononitrate 30 mg 15 mg PO QAM 12/02/21 01/30/22 01/30/22 History tablet,extended release 24 hr lisinopril 10 mg tablet 5 mg PO BEDTIME 12/02/21 01/30/22 01/29/22 History spironolactone 25 mg tablet 25 mg PO QAM 12/02/21 01/30/22 01/30/22 History albuterol sulfate 2.5 mg/3 mL 2.5 mg (3 mL) inhalation QID PRN 12/05/21 01/30/22 Unknown Rx (0.083 %) solution for nebulization shortness of breath or wheezing #75 mL fluticasone propionate 45 2 inh inhalation Q12H #12 grams 12/05/21 01/30/22 01/30/22 Rx mcg-salmeterol 21 mcg/actuation HFA inhaler (Advair HFA) furosemide 40 mg tablet (Lasix) 40 mg PO QAM #60 tabs 12/05/21 01/30/22 01/30/22 Rx insulin glargine U-300 conc 300 See Rx Instructions SUBCUT DAILY 12/05/21 01/30/22 01/30/22 Rx unit/mL (3 mL) subcutaneous pen #18 mL metoprolol tartrate 100 mg tablet 100 mg PO BID #60 tabs 01/23/22 01/30/22 01/27/22 Rx ascorbic acid (vitamin C) 500 mg 500 mg PO DAILY 01/30/22 01/30/22 01/30/22 History tablet,extended release (Vitamin C ER) cyanocobalamin (vitamin B-12) 100 100 mcg PO DAILY 01/30/22 01/30/22 01/30/22 History mcg tablet (Vitamin B-12) duloxetine 60 mg capsule,delayed 60 mg PO BEDTIME 01/30/22 01/30/22 01/29/22 History release potassium chloride 20 mEq 10 meq PO BEDTIME 01/30/22 01/30/22 01/29/22 History tablet,extended release Allergies Allergy/AdvReac Type Severity Reaction Status Date / Time No Known Allergies Allergy Verified 01/30/22 12:57 Current Medications Generic Name Dose Route Start Last Admin Trade Name Freq PRN Reason Stop Dose Admin Acetylcysteine 100 mg 01/31/22 20:00 02/02/22 08:01 Acetylcysteine 200 Mg/Ml Sdv 4 Ml INHALATION 100 mg Q6H.RESP SOLOMON Administration Albuterol/Ipratropium 3 ml 01/30/22 16:59 01/31/22 11:23 Ipratropium-Albuterol 3 Ml Neb INHALATION 3 ml Q4H PRN Administration SHORTNESS OF BREATH Albuterol/Ipratropium 3 ml 01/30/22 20:00 02/02/22 08:01 Ipratropium-Albuterol 3 Ml Neb INHALATION 3 ml Q6H.RESP SOLOMON Administration Artificial Tears 1 applic 01/31/22 21:00 02/01/22 20:29 Artificial Tears Op Oint 3.5 Gm EYE-BOTH 1 applic BEDTIME SOLOMON Administration Atorvastatin Calcium 80 mg 01/30/22 21:00 02/01/22 20:29 Atorvastatin 40 Mg Tablet PO 80 mg BEDTIME SOLOMON Administration Budesonide 0.5 mg 01/30/22 20:00 02/02/22 08:02 Budesonide 0.5 Mg/2 Ml Neb INHALATION 0.5 mg BID.RESPIRATORY SOLOMON Administration Chlorhexidine Gluconate 1 applic 02/01/22 01:00 02/02/22 08:36 Chlorhexidine Gluconate 4% Btl 118 Ml TOPICAL 1 applic Q4H SOLOMON Administration Docusate Sodium 100 mg 01/30/22 21:00 02/02/22 08:29 Docusate Sodium 10 Mg/Ml (5ml) Liq PO 100 mg BID@0900,2100 SOLOMON Administration Duloxetine HCl 60 mg 01/30/22 21:00 02/01/22 20:29 Duloxetine 60 Mg Capsule PO 60 mg BEDTIME SOLOMON Administration Enoxaparin Sodium 150 mg 01/30/22 21:00 02/02/22 08:33 Enoxaparin 150 Mg/Ml Syringe SUBCUT 150 mg Q12H SOLOMON Administration Furosemide 60 mg 01/30/22 21:00 02/02/22 08:35 Furosemide 10 Mg/Ml Sdv 10ml IVP 60 mg Q12H SOLOMON Administration Guaifenesin 1,200 mg 01/31/22 18:00 02/02/22 08:28 Guaifenesin 600 Mg Tablet PO 1,200 mg BID SOLOMON Administration Heparin Sodium (Porcine) 200 - 500 unit 01/30/22 16:55 02/02/22 02:24 Heparin Lock Flush 500 Unit/5 Ml Syringe IV Not Given Q12H SOLOMON Propofol 1,000 mg in 100 mls @ 0 mls/hr 01/30/22 15:15 02/02/22 07:30 Diprivan IV 30 mcg/kg/min .Q0M SOLOMON 32.66 mls/hr Administration Protocol Per Protocol Imipenem/Cilastatin Sodium 500 100 mls @ 200 mls/hr 01/30/22 17:00 02/02/22 07:56 mg/ Sodium Chloride IV Infused Q6H SOLOMON Infusion Protocol Fentanyl 1,000 mcg/ Sodium 100 mls @ 0 mls/hr 01/30/22 16:55 01/31/22 03:35 Chloride IV Infused .Q0M SOLOMON Titration Protocol Per Protocol Norepinephrine Bitartrate 4 mg 254 mls @ 0 mls/hr 01/30/22 18:30 02/01/22 17:30 / Dextrose IV 0 mcg/min .Q0M SOLOMON 0 mls/hr Titration Protocol Per Protocol Fentanyl 2,500 mcg/ Sodium 250 mls @ 0 mls/hr 01/30/22 22:15 02/02/22 02:24 Chloride IV 75 mcg/hr .Q0M SOLOMON 7.5 mls/hr Administration Protocol Per Protocol Vancomycin/PEG/NADA/Lysine/Water 1,250 mg in 250 mls @ 200 mls/hr 02/01/22 10:30 02/02/22 09:34 Vancocin IV 200 mls/hr Q12H SOLOMON Administration dexmedeTOMIDine 0.9 % NaCL 400 mcg in 100 mls @ 0 mls/hr 02/01/22 15:00 02/02/22 07:31 Precedex IV 0.4 mcg/kg/hr .Q0M SOLOMON 19.94 mls/hr Administration Protocol Per Protocol Insulin Glargine 35 unit 02/01/22 21:00 02/02/22 08:36 Insulin Glargine 100 Units/1 Ml SUBCUT 35 unit BID@0900,2100 SOLOMON Administration Insulin Human Lispro 0 unit 01/30/22 21:00 02/01/22 20:28 Insulin Lispro 100 Unit/1 Ml SUBCUT 4 unit BEDTIME SOLOMON Administration Protocol Insulin Human Lispro 0 unit 01/30/22 18:00 02/02/22 07:26 Insulin Lispro 100 Unit/1 Ml SUBCUT 10 unit TIDWM SOLOMON Administration Protocol Lanolin 1 applic 02/01/22 01:17 02/01/22 02:40 Lanolin Oint 7 Gm TOPICAL 1 applic PRN PRN Administration DRYNESS Methylprednisolone Sodium Succinate 60 mg 01/31/22 14:15 02/02/22 07:28 Methylprednisolone Sod Succ 125 Mg/2 Ml Inj IVP 60 mg Q6H SOLOMON Administration Metoprolol Tartrate 5 mg 01/30/22 17:21 02/01/22 10:14 Metoprolol Tartrate 1 Mg/1 Ml Sdv 5 Ml IVP 5 mg Q4H PRN Administration heart rate > 110 if MAP >/=65 Metoprolol Tartrate 25 mg 01/30/22 21:00 02/02/22 08:28 Metoprolol Tartrate 25 Mg Tablet PO 25 mg BID@0900,2100 SOLOMON Administration Nystatin 1 applic 01/31/22 09:00 02/02/22 08:36 Nystatin Powder 15 Gm Btl TOPICAL 1 applic BID SOLOMON Administration Pantoprazole Sodium 40 mg 01/30/22 20:00 02/02/22 07:26 Pantoprazole 40 Mg Sdv IVP 40 mg Q12H SOLOMON Administration Sodium Chloride 5 - 10 ml 01/30/22 16:55 02/02/22 06:47 Sodium Chloride 0.9 % (Flush) Syringe 10 Ml IV Not Given Q12H SOLOMON PFSH Acute PFSH: Medical History Atrial fibrillation CHF (congestive heart failure) CKD stage 2 due to type 2 diabetes mellitus COPD (chronic obstructive pulmonary disease) Diabetes mellitus, type II Diabetic neuropathy Dyslipidemia History of echocardiogram 2018 EF 65%. no wall motion abnormalities, Grade III/IV Diastolic Dysfunction; report in [employer] History of left heart catheterization 2018 normal coronary arteries; performed by Dr Zaman at [facility] [place], report in [employer] History of right heart catheterization 2018 PCWP 15 mmHg, mean PAP 50 mmHg, responsive to SL NTG with reduction to 39 mmHg, consistent with reversibility; performed by Dr Zaman at [facility] [place], report in [employer] History of sleep study 2018 Moderate obstructive sleep apnea, exacerbated by REM sleep, nocturnal hypoxia, elevated periodic limb movement index with a normal PLM-arousal index, abnormal sleep architecture related to first night effect, respiratory events and medications; report in [employer] Hypertension Morbid obesity SHERLEY (obstructive sleep apnea) Surgical History S/P appendectomy Family History Mother CAD (coronary artery disease) Atrial fibrillation Father Lung disease Unknown Cancer Lung, Breast, Brain Other CHF (congestive heart failure) Social History Smoking and tobacco status: former smoker Alcohol intake: former Substance/Drug Use: former Caregiver/support person: Yes Lives independently: Yes Household members: significant other Vitals/I&O/Wt Last Vital Signs Temp 98.4 F 02/01/22 22:00 Pulse 87 02/02/22 09:00 Resp 16 02/02/22 09:11 BP 111/70 02/02/22 09:00 Pulse Ox 94 02/02/22 09:11 O2 Del Method 02/02/22 08:00 O2 Flow Rate 50 02/01/22 03:00 FiO2 60 02/02/22 09:11 02/01/22 02/02/22 02/02/22 22:59 06:59 14:59 Intake Total 494.224 / 1341.473 578.977 / 1920.450 200 / 200 Output Total 2400 / 2400 2300 / 4700 Balance -1905.776 / -1058.527 -1721.023 / -2779.550 200 / 200 Weight last 48 hrs Weight 439 lb 8 oz Weight 439 lb 8 oz Physical Exam Narrative: PHYSICAL EXAM: General: lying in bed, sedated and intubated. 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 SKIN: no rash LDA: # CVC: Left IJ Urinary Catheter Management: Lord: Cath Placed During This Visit: no Reason for Continuing Indwelling Catheter: Accurate Measurement of Urinary O utput in Critically Ill Patients Data : 02/03/22 03:24 02/03/22 03:24 Other Labs: Radiology Impressions Chest X-Ray 02/03/22 08:17 Impression: 1. No change in position of multiple tubes. 2. Development of moderate right basilar opacity. 3. No change in left lung opacity in mediastinal and cardiac shift from right to left. Laboratory Results WBC 13.3 10^3/uL (4.0-10.0) H 02/03/22 03:24 RBC 3.05 10^6/uL (4.1-5.3) L 02/03/22 03:24 Hgb 9.0 g/dL (11.7-16.6) L 02/03/22 03:24 Hct 29.3 % (42.0-52.0) L 02/03/22 03:24 MCV 96.1 fl (80-94) H 02/03/22 03:24 MCH 29.5 pg (28.0-34.0) 02/03/22 03:24 MCHC 30.7 g/dL (30.0-36.0) 02/03/22 03:24 RDW 15.3 % (12.1-15.1) H 02/03/22 03:24 Plt Count 281 10^3/cmm (130-400) 02/03/22 03:24 MPV 11.5 fL (7.4-10.4) H 02/03/22 03:24 Neut % (Auto) 90.6 % 02/03/22 03:24 Lymph % (Auto) 4.7 % 02/03/22 03:24 [place] % (Auto) 3.8 % 02/03/22 03:24 Eos % (Auto) 0.0 % 02/03/22 03:24 Baso % (Auto) 0.2 % 02/03/22 03:24 Neut # (Auto) 12.02 10^3/uL (1.8-7.7) H 02/03/22 03:24 Lymph # (Auto) 0.6 10^3/uL (0.8-4.8) L 02/03/22 03:24 [place] # (Auto) 0.5 10^3/uL (0.2-0.9) 02/03/22 03:24 Eos # (Auto) 0.0 10^3/uL (0.0-0.8) 02/03/22 03:24 Baso # (Auto) 0.0 10^3/uL (0.0-0.1) 02/03/22 03:24 Nucleated RBC % (auto) 0 % 02/03/22 03:24 Nucleated RBCs # 0.0 /100WBC 02/03/22 03:24 PT 17.20 SECONDS (12.1-14.9) H 01/31/22 03:40 INR 1.37 (0.8-1.2) H 01/31/22 03:40 APTT 41.4 SECONDS (23.9-36.7) H 01/31/22 03:40 Specimen Type Arterial 02/03/22 05:53 Sample Site Radial, right 02/03/22 05:53 ABG pH 7.45 (7.35-7.45) 02/03/22 05:53 ABG pCO2 65.6 mmHg (35-45) H* 02/03/22 05:53 ABG pO2 73.2 mmHg (80.0-100.0) L 02/03/22 05:53 ABG HCO3 45.0 mmol/L (22-26) H 02/03/22 05:53 ABG O2 Saturation 94.3 02/03/22 05:53 ABG Base Excess 18.3 mmol/L (-2.0-2.0) H 02/03/22 05:53 Jax Test Pos 02/03/22 05:53 A-a O2 Gradient 49.6 mmHg (5-10) H 02/03/22 05:53 Hematocrit 30.0 % (42-52) L 02/03/22 05:53 Hgb O2 Saturation 92.7 % (95-100) L 02/03/22 05:53 Carboxyhemoglobin 1.1 %THgb (0.4-20.1) 02/03/22 05:53 Methemoglobin 0.6 % (0.4-1.5) 02/03/22 05:53 Total Hemoglobin 9.8 g/dL (14-18) L 02/03/22 05:53 Sodium 141.0 mmol/L (131-143) 02/03/22 05:53 Potassium 3.8 mmol/L (3.5-5.0) 02/03/22 05:53 Glucose 252.0 mg/dL (70-115) H 02/03/22 05:53 Ionized Calcium 1.1 mmol/L (1.1-1.4) 02/03/22 05:53 O2 Delivery Device Vent 02/03/22 05:53 O2 Liters/Min 4.0 % 01/30/22 12:06 FiO2 75.0 % 02/03/22 05:53 Tidal Volume 0.45 02/03/22 05:53 PEEP 12.0 cmH20 02/03/22 05:53 School Librarian ID Krishna 02/03/22 05:53 Sodium 143 mmol/L (136-145) 02/03/22 03:24 Potassium 4.2 mmol/L (3.5-5.1) 02/03/22 03:24 Chloride 91 mmol/L (98-107) L 02/03/22 03:24 Carbon Dioxide 41 mmol/L (22-29) H 02/03/22 03:24 Anion Gap 15.2 (5-19) 02/03/22 03:24 BUN 44 mg/dL (8-23) H 02/03/22 03:24 Creatinine 1.4 mg/dL (0.7-1.2) H 02/03/22 03:24 GFR Calculation 51.4 mL/min (90-130) L 02/03/22 03:24 Glucose 269 mg/dL (65-115) H 02/03/22 03:24 POC Glucose 272 mg/dL (70-110) H 02/03/22 07:41 Calculated Osmolality 317 mOsm/kg (285-295) H 02/03/22 03:24 Lactic Acid 0.9 mmol/L (0.5-2.2) 01/30/22 17:10 Uric Acid 7.3 mg/dL (3.4-7.0) H 01/31/22 03:40 Calcium 8.7 mg/dL (8.5-10.5) 02/03/22 03:24 Phosphorus 3.1 mg/dL (2.5-4.5) 01/31/22 03:40 Magnesium 2.1 mg/dL (1.7-2.3) 01/31/22 03:40 Iron 17 ug/dL (59-158) L 01/31/22 03:40 TIBC 191 mcg/dl 01/31/22 03:40 % Saturation 8.9 % (20-50) L 01/31/22 03:40 Unsat Iron Binding 174 ug/dL (112-347) 01/31/22 03:40 Total Bilirubin 0.2 mg/dL (0.15-1.2) 02/03/22 03:24 AST 34 U/L (0-40) 02/03/22 03:24 ALT 18 U/L (0-41) 02/03/22 03:24 Alkaline Phosphatase 80 U/L (40-130) 02/03/22 03:24 Creatine Kinase 71 U/L (39-308) 01/30/22 12:03 Troponin T Baseline 35 ng/L (0-15) H 01/30/22 12:03 Troponin T 120 Minute 34.86 ng/L (0-15) H 01/30/22 14:05 Delta Troponin T -0.14 ABS# (0-10) L 01/30/22 14:05 Troponin T Hi Sens 6Hr 32.80 ng/L (0-15) H 01/30/22 17:59 Troponin T Hi Sens 6Hr Delta -2.20 ng/L (0-12) L 01/30/22 17:59 NT-Pro-B Natriuret Pep 2048 pg/mL (0-125) H 01/30/22 12:03 Total Protein 6.4 g/dL (6.6-8.7) L 02/03/22 03:24 Albumin 2.9 g/dL (3.5-5.2) L 02/03/22 03:24 Globulin 3.5 g/dL (1.3-4.6) 02/03/22 03:24 Vitamin B12 1289 pg/mL (232-1245) H 01/31/22 03:40 Folate 18.2 ng/mL (4.5-32.2) 01/31/22 03:40 Procalcitonin 0.24 ng/mL (0-0.5) 01/31/22 03:40 Urine Color Straw (Yellow) 01/30/22 12:49 Urine Appearance Clear (CLEAR) 01/30/22 12:49 Urine pH 5 (5-7) 01/30/22 12:49 Ur Specific [place] 1.010 (1.005-1.030) 01/30/22 12:49 Urine Protein Neg (Negative) 01/30/22 12:49 Urine Glucose (UA) Norm (Normal) 01/30/22 12:49 Urine Ketones Negative (Negative) 01/30/22 12:49 Urine Blood Neg (Negative) 01/30/22 12:49 Urine Nitrate Negative (Negative) 01/30/22 12:49 Urine Bilirubin Neg (Negative) 01/30/22 12:49 Urine Urobilinogen Norm mg/dL (Negative) 01/30/22 12:49 Ur Leukocyte Esterase Negative (Negative) 01/30/22 12:49 Vancomycin Trough 30.9 ug/mL (10-15) H* 02/02/22 21:05 Coronavirus 229E (PCR) Not detected (NOT DETECT) 01/30/22 17:09 SARS-CoV-2 (PCR) Not detected (NOT DETECT) 01/30/22 17:09 Micro: Microbiology 01/31/22 15:11 Gram Stain - Final Lung Left Lower Lobe - #1 01/30/22 15:45 Gram Stain - Final Sputum - Endotracheal Tube Aspirate Sputum Culture - Preliminary A&P Assessment and plan (1) Acute on chronic respiratory failure with hypoxia and hypercapnia: (2) SHERLEY (obstructive sleep apnea): (3) CHF (congestive heart failure): Qualifiers: Heart failure type: diastolic Heart failure chronicity: acute on chroni c Qualified Code(s): I50.33 - Acute on chronic diastolic (congestive) heart failure (4) CKD stage 2 due to type 2 diabetes mellitus: (5) Atrial fibrillation: Qualifiers: Atrial fibrillation type: longstanding persistent Qualified Code(s): I48.11 - Longstanding persistent atrial fibrillation (6) Diabetes mellitus, type II: Qualifiers: Diabetes mellitus complication status: with hyperglycemia Diabetes mellitus penitentiary insulin use: with penitentiary use Qualified Code(s): E11.65 - Type 2 diabetes mellitus with hyperglycemia; 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 (7) Chronic anticoagulation: (8) COPD (chronic obstructive pulmonary disease): Qualifiers: COPD type: COPD with acute exacerbation Qualified Code(s): J44.1 - Chronic obstructive pulmonary disease with (acute) exacerbation (9) On home oxygen therapy: (10) Difficulty with BiPAP use: (11) Mucus plugging of bronchi: (12) Aspiration pneumonia: (13) BMI 50.0-59.9, adult: (14) Goals of care, counseling/discussion: Plan #Acute on chronic hypercapnic respiratory failure in patient with underlying grade 3 diastolic heart failure, COPD, obstructive sleep apnea, obesity hypoventilation-noncompliant with home BiPAP -Complicated by episode of vomiting leading to aspiration and plugging of left tracheobronchial tree -Intubated and currently on 450/10/50 percent FiO2-ABG pH is compensated and PCO2 down to 66 -Underwent BAL/aspiration of mucous plugs on 01/31/2022-BAL cultures pending -Today again so worsening chest x-ray with left mediastinal shift-underwent repeat bronchoscopy-able to aspirate breathing left mainstem mucous plug-however postprocedure chest x-ray did not improve much -Recommended to increase PEEP and continue hypertonic saline/Mucomyst nebulization every 12 hours and chest physiotherapy 3 times a day -Currently patient on vancomycin and imipenem; monitor Vanco level -BAL cultures are pending, urine Legionella antigen and bacterial antigens are negative -Continue Precedex for anxiety -We will obtain CT chest #Admitted with AMS-likely secondary to CO2 narcosis due to noncompliant with BiPAP -Currently on ventilator and pH is compensated with PCO2 66 which is most likely his baseline #Diastolic CHF -Grade 3/4 diastolic CHF on previous echo 2018 -He is on Lasix 60 Mg IVP-good urine output and net negative fluid balance -We will continue to monitor electrolytes, renal functions #JAMES-likely secondary to sepsis/prerenal -Requiring intermittent Levophed to maintain MAP greater than 65 -Monitor input output, renal parameters -May have to cut down on Lasix #Uncontrolled sugars -Currently on Lantus 35 every 2 will and scale coverage -Monitor sugars #Goals of care discussion -Had bedside discussion with Ms. Mcnulty patient's sister about patient's medical condition. She informed that patient is noncompliant with his BiPAP and has had frequent hospital admissions for hypercapnic respiratory failure. She told patient does not want to go to long-term and it is challenging to convince patient to use his BiPAP at home. I have explained that currently patient's has significant mucous plugging from aspiration and will perform repeat bronchoscopy to clear the airways, treat with antibiotics while supporting his breathing with ventilator-when it comes to the point of extubation we will discuss with family about reintubation and further goals of care. Meanwhile I have recommended her to talk to patient's significant other about patient's wishes, so that we all can meet and have a family meeting regarding future goals of care. ICU CHECKLIST: Problem list updated Verbal orders reviewed and signed Analgesia: Fentanyl Glycemic Control: Insulin Nutrition: N.p.o. Restraint Renewal (within 24 hrs): Yes Ulcer Prophylaxis: PPI Chemical Thromboprophylaxis: Lovenox Mechanical Thromboprophylaxis: SCDs Need for Central line: For pressors Need for Lord catheter: For close urine output monitoring Critical Care Time (No Overlap): 65 min This patient has a high probability of sudden, clinically significant d eterioration, which requires the highest level of physician preparedness to intervene urgently. I managed/supervised life or organ supporting interventions that required frequent physician assessment. I devoted my full attention in the ICU to the direct care of this patient for the period of time indicated above. Time I spent with family or surrogate(s) is included only if the patient was incapable of providing necessary information or participating in decision making. Time devoted to teaching and to any procedures I billed separately is not included. Services Provided: Telemetry review Mechanical Ventilation Hemodynamic interpretation, assessment and management Review and interpretation of CXR Review and interpretation of lab values Review and interpretation of microbiologic data and culture results Review of medications and administration Review and interpretation of Nutrition requirements and management Discussion of management with other consultants and services Clinical update to family members Consult Attestations Medical Necessity Statement: Still requiring mechanical ventilation Time Spent in Patient Care: Greater than 35 minutes (>than 50% of time spent in counselling and/or direct pt care on unit) . Critical Care Time: The high probability of a clinically significant, sudden or life threatening deterioration of the patient's [neurological/pulmonary/infectious/endocrine/renal/cardiac] system(s) required my full and direct attention, intervention and personal management. The critical care time is as shown. This time is in addition to time spent performing any reported procedures but includes the following: [x] Data and vital sign review and interpretation [x] Patient assessment, examination and intervention [x] Documentation [x] Medication orders and management Critical Care Time (min): 65 Coding Level of Care Code New Pt Acute Scrapper for Chg Fwd Patient Type New History Comprehensive Exam Comprehensive Medical Decision Making High Complexity Diagnoses Acute on chronic respiratory failure with hypoxia and hypercapnia J96.21; J96.22 SHERLEY (obstructive sleep apnea) G47.33 CHF (congestive heart failure) I50.33 Heart failure type: diastolic Heart failure chronicity: acute on chronic CKD stage 2 due to type 2 diabetes mellitus E11.22; N18.2 Atrial fibrillation I48.11 Atrial fibrillation type: longstanding persistent Diabetes mellitus, type II E11.65; Z79.4 Diabetes mellitus complication status: with hyperglycemia Diabetes mellitus penitentiary insulin use: with penitentiary use Chronic anticoagulation Z79.01 COPD (chronic obstructive pulmonary disease) J44.1 COPD type: COPD with acute exacerbation On home oxygen therapy Z99.81 Difficulty with BiPAP use Z78.9 Mucus plugging of bronchi T17.500A Aspiration pneumonia J69.0 BMI 50.0-59.9, adult Z68.43 Goals of care, counseling/discussion Z71.89 Time Spent (min) 65
--- NOTE | 2022-02-02 10:02 | PC.CHAP ---
Pastoral Care Encounter/Spiritual Assessment Type of Contact [] Declined tram inspector visit [] Patient/Family/Request visit [] Outpatient visit [] Follow-up visit [] Physician referral [] Code/Alert [x] Routine visit [] Staff referral [] Actively dying [] Patient sleeping [] Family support [] [] Out of room [] Palliative care [] [x] Receiving care in room [] Pre-surgical visit [] Trauma [] Long length of stay [x] ICU visit [] Other: Relational/Emotional Strength [] Patient feels connected with others/family/visitors/staff [] Distress [] Loneliness/isolation [] Abandonment Spirituality of Patient [] Person of Ruchi [] Attends Pentec[employer]al of their Ruchi [] Believes in Prayer [] Reads Bible or Baptism materials [] There are Spiritual issues to be addressed 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 [x] Prayer [] Active listening [] Non-anxious presence [] Spiritual/emotional support [] Crisis/trauma care [] Spiritual counseling [] Bereavement support [] Provided bereavement packet [] Provided Bible/devotional materials [] Provided toy/stuffed animal, coloring book to patient or family member [] Provided Communion [] Anointing/[place] [] Salvation [x] Completed spiritual assessment [] Other: Impact on Illness or Injury [] Angry [] Fearful [] Anxious [] Often cries [] Exhaustion [] Unable to work [] Unable to attend adventist [] Unable to walk/stand [] Unable to read [] Unable to drive [] Unable to eat/drink [] Unable to sleep [] Unable to be with family [] Patient intubated [] Other: Summary Time spent with patient
--- NOTE | 2022-02-02 10:40 | PC.SOCIAL ---
Pg 2 IMM Explained to pt's family Pg 2 IMM. No questions voiced. Provided pt a copy. Initialed, dated, & timed a copy & placed in chart.
[2022-02-02 11:58] LABS: Glucose Point of Care 283 mg/dL (70-110)
[2022-02-02] MEDS: propofol 1,000 MG/100 ML INJ 54.43 MG IV (13:22)
[2022-02-02] MEDS: lidocaine 1% INJ 20 mL XX (13:33)
[2022-02-02] MEDS: midazolam 1 mg/mL INJ 2 mL 2 MG IVP (13:41)
--- NOTE | 2022-02-02 13:56 | XRR_ITS ---
PROCEDURE INFORMATION: Exam: XR Chest Exam date and time: 02/02/2022 2:11 PM Age: 61 years old Clinical indication: Device placement; Other: Post bronch TECHNIQUE: Imaging protocol: Radiologic exam of the chest. Views: 1 view. COMPARISON: CR XR chest 1V portable [id number] 02/02/2022 8:51 AM FINDINGS: Tubes, catheters and devices: Endotracheal tube, feeding tube, central venous catheter again demonstrated. The endotracheal tube terminates 2.9 cm above the paco. Lungs: Persistent opacification of the left lung with leftward shift of the heart and mediastinum, consistent with atelectasis. Interstitial prominence in the aerated right lung. Pleural spaces: Suspected left pleural effusion. Heart/Mediastinum: Obscuration of the heart. Bones/joints: Mild degenerative change. When correlating with the previous study, no significant interval changes are present. XR/XR chest 1V portable [id number] IMPRESSION: Stable appearance of the chest, not significantly changed from 02/02/2022 at 8:51 a.m. .
--- NOTE | 2022-02-02 14:04 | PM.PN ---
Subjective Subjective: Intubated, not in pain or distress currently alert, answering some basic questions, following directions. Reported to have gotten anxious yesterday especially with family at bedside. Vitals/I&O/Wt Last Vital Signs Temp 98.4 F 02/01/22 22:00 Pulse 78 02/02/22 13:00 Resp 16 02/02/22 12:56 BP 107/71 02/02/22 13:00 Pulse Ox 91 02/02/22 13:00 O2 Del Method 02/02/22 08:00 O2 Flow Rate 50 02/01/22 03:00 FiO2 60 02/02/22 12:56 02/01/22 02/02/22 02/02/22 22:59 06:59 14:59 Intake Total 494.224 / 1341.473 578.977 / 1920.450 659.228 / 659.228 Output Total 2400 / 2400 2300 / 4700 1500 / 1500 Balance -1905.776 / -1058.527 -1721.023 / -2779.550 -840.772 / -840.772 Weight last 48 hrs Weight 199.354 kg Weight 199.354 kg Physical Exam Const: GENERAL APPEARANCE: patient mechanically ventilated NUTRITIONAL APPEARANCE: obese morbidly obese Neck/C-Spine: OTHER: Thick LIJ CVC Resp: AUSCULTATION: rhonchi and diminished lung sounds Cardio: COMMON NORMALS: regular rhythm, S1 normal heart sound present, S2 normal heart sound present and No murmurs present (Cardio) RATE: tachycardic RHYTHM: regular rhythm HEART SOUNDS: S1 normal heart sound present and S2 normal heart sound present GI: COMMON NORMALS: Normal to inspection, nondistended, normoactive bowel sounds present and Soft to palpation PALPATION: Yes Soft to palpation OTHER: Large pannus Extremity: COMMON NORMALS: no joint enlargement GENERAL: Yes edema (2+) Skin: OTHER: BL chronic stasis changes Urinary Catheter Management: Lord: Cath Placed During This Visit: no Reason for Continuing Indwelling Catheter: Accurate Measurement of Urinary Output in Critically Ill Patients Data : 02/02/22 03:28 02/02/22 03:28 Micro: Microbiology 01/31/22 15:11 Gram Stain - Final Lung Left Lower Lobe - #1 Bronchial Washings Culture - Preliminary 02/02/22 08:20 Legionella Urinary Antigen - Final Urine,Clean Catch Bacterial Antigens - Final 01/30/22 15:45 Gram Stain - Final Sputum - Endotracheal Tube Aspirate Sputum Culture - Preliminary A&P Assessment and plan (1) Acute on chronic respiratory failure with hypoxia and hypercapnia: Requested assessment by pulmonology due to anticipated difficulty weaning of ventilator, extubation. Additional assessment today with chest x-ray showing again complete opacification of left hemithorax. Underwent additional bronchoscopy today, with evacuation of left mainstem bronchus mucous plugging. Repeat chest x-ray. Continue IV steroid, antibiotics, breathing treatments, nebulized acetylcysteine, as well as added 3.5% nebulized saline. Continue pulmonary toilet. Requiring sedation due to intermittent anxiety/agitation. With sedation blood pressure soft. Multifactorial from acute on chronic COPD, CHF and variable compliance with bipap/oxygen after apparent aspiration plus mucous plugging. (2) Encephalopathy acute: Appears to be improved, he is awake, alert, nodding answers to questions, following directions. Family report may be prone to bad anxiety, continue sedation currently to keep him easily arousable but calm. Precedex added. Secondary to hypoxemia, hypercapnia and pneumonia. (3) CHF (congestive heart failure): Acute on chronic. Diuresing well. In negative balance. Edema decreasing. Continue Lasix IV. Normally on furosemide plus potassium, spironolactone and nitrates Continue Lasix 60 mg twice daily IV, monitor I&O, weights. Qualifiers: Heart failure type: diastolic Heart failure chronicity: acute on chronic Qualified Code(s): I50.33 - Acute on chronic diastolic (congestive) heart failure (4) COPD (chronic obstructive pulmonary disease): With severe exacerbation, with copious sputum secretions, continue IV steroid, inhaled steroid, antibiotic coverage with vancomycin, Primaxin. Follow-up sputum cultures. Breathing treatments. Pulmonary toilet. As above. Chronically on oxygen generally at 4L bnc at rest but lately requiring 6L Qualifiers: COPD type: COPD with acute exacerbation Qualified Code(s): J44.1 - Chronic obstructive pulmonary disease with (acute) exacerbation (5) Anemia: Chronic macrocytic anemia with baseline hemoglobin around 10 or so, currently with lower hemoglobin, possibly from dilution No reported blood loss No available recent anemia labs but review of old records shows that B12 and folate normal in 2012, iron, percent saturation and ferritin normal in 2019 Qualifiers: Anemia type: unspecified type Qualified Code(s): D64.9 - Anemia, unspecified (6) CKD stage 2 due to type 2 diabetes mellitus: JAMES on CKD, creatinine better today down to 1.4. Continue diuresis currently, reassess renal function. Hyperkalemia resolved. (7) Hypertension: Blood pressure soft with sedation. In addition to beta blockade for atrial fibrillation and diuretics + nitrates for CHF, chronically on lisinopril which is currently on hold. (8) Atrial fibrillation: Initially A. fib with RVR, improved. Currently rate controlled. Continue metoprolol. Lovenox. Qualifiers: Atrial fibrillation type: longstanding persistent Qualified Code(s): I48.11 - Longstanding persistent atrial fibrillation (9) Chronic anticoagulation: On Eliquis, secondary to atrial fibrillation (10) Dyslipidemia: Chronically on statin Last lipid panel in 06/2020 showed total cholesterol of 180, LDL 111, HDL 25, TG 169 (11) Diabetes mellitus, type II: Continue Lantus, sliding scale insulin. We will increase Lantus dose further to 35 units twice daily. A1c 9.1 on 12/03/2021 Qualifiers: Diabetes mellitus complication status: with hyperglycemia Diabetes mellitus [facility] insulin use: with long term care administrator use Qualified Code(s): E11.65 - Type 2 diabetes mellitus with hyperglycemia; Z79.4 - long term care phlebotomist (current) use of insulin (12) SHERLEY (obstructive sleep apnea): Has Bipap but inconsistent use, per recent Home Health Discharge, he will report compliance but an alondra has shown use only a couple of times in last month (13) BMI 50.0-59.9, adult: Plan Hypotension: Has weaned off pressor. Today required sedation due to anxiety/agitation, with sedation blood pressure soft. Pressor as needed to maintain MAP. Lymphedema Chronically on duloxetine Chronically on vitamin C, multivitamin, vitamin D, vitamin B12 Recently discharged from home health services, last week Anticipate discharge either home plus or minus home health versus even potential need for placement pending on clinical course Attestations Medical Necessity Statement*: Continue admission for management of respiratory failure. Weaning off mechanical ventilatory support. Critical Care Time: The high probability of a clinically significant, sudden or life threatening deterioration of the patient's respiratory, hemodynamic. System(s) required my full and direct attention, intervention and personal management. The critical care time is as shown. This time is in addition to time spent performing any reported procedures but includes the following: x Data and vital sign review and interpretation x Patient assessment, examination and intervention x Documentation x Medication orders and management Critical Care Time (min): 50 Coding Level of Care Code Acute Electrical Maintenance Technician for Chg Fwd Diagnoses Acute on chronic respiratory failure with hypoxia and hypercapnia J96.21; J96.22 Encephalopathy acute G93.40 CHF (congestive heart failure) I50.33 Heart failure type: diastolic Heart failure chronicity: acute on chronic COPD (chronic obstructive pulmonary disease) J44.1 COPD type: COPD with acute exacerbation Anemia D64.9 Anemia type: unspecified type CKD stage 2 due to type 2 diabetes mellitus E11.22; N18.2 Hypertension I10 Atrial fibrillation I48.11 Atrial fibrillation type: longstanding persistent Chronic anticoagulation Z79.01 Dyslipidemia E78.5 Diabetes mellitus, type II E11.65; Z79.4 Diabetes mellitus complication status: with hyperglycemia Diabetes mellitus long term care administrator insulin use: with [facility] use SHERLEY (obstructive sleep apnea) G47.33 BMI 50.0-59.9, adult Z68.43
[2022-02-02] MEDS: sodium chloride 3.5% neb 4 mL Neb INHALATION ×2 (15:03→21:17)
[2022-02-02] MEDS: propofol 1,000 MG/100 ML INJ 43.55 MG IV ×3 (16:10→20:29)
[2022-02-02 17:06] LABS: Glucose Point of Care 321 mg/dL (70-110)
[2022-02-02 20:20] LABS: Glucose Point of Care 308 mg/dL (70-110)
[2022-02-02] MEDS: artificial tears Op Oint 3.5 gm 1 APPLIC EYE-BOTH (20:28)
[2022-02-02] MEDS: atorvastatin 40 mg Tablet 80 MG PO (20:29)
[2022-02-02] MEDS: duloxetine 60 mg Capsule PO (20:29)
[2022-02-02 22:02] LABS: Vancomycin Trough 30.9 ug/mL (10-15)
--- NOTE | 2022-02-02 22:23 | PM.ACPR ---
Procedure/Consent Time out: Time Out Performed: Yes Consent: Consent for Procedure: Consent obtained from other (indicate) Procedure Narrative: Procedure: Flexible bronchoscopy for airway inspection, airway clearance of secretions [id number] Bronchoscopy w/ therapeutic aspiration of the tracheobronchial tree (clearance of airway secretions, removal of mucus plugs) Pre-Operative Diagnosis: Aspiration pneumonia Post-Operative Diagnosis: Same Indication: Worsening of left lung mucous plugging with atelectasis on chest x-ray with increasing FiO2 requirements Anesthesia: Fentanyl 25 MCG and Versed 2 Mg; titrated his fentanyl drip to achieve adequate sedation Pre-procedure Evaluation: Patient was evaluated clinically and ancillary testing reviewed. The risk of having active MTB infection is very low in my clinical judgement. ASA: 4 Malampati score: unable to evaluate due to presence of endotracheal tube Consent: Consents were obtained from [facility] and placed in the chart Procedure Details: Time out was performed by the procedure team and nursing staff. Vent support maintained on Fio2 100. The bronchoscope was introduced through the ETT. A bronchoscopic airway exam was performed to evaluate the visible tracheobronchial tree to the segmental level. Summary of Significant Findings: -Bronchoscope passed through ET tube, 6 ml 1% lidocaine instilled into the trachea, both right and left main bronchus. Distal trachea and main paco visualized which were sharp and normal. Then the scope was passed through the right bronchial tree was assessed to include the right mainstem bronchus, RBI, and RUL/RML/RLL bronchi to the segmental and subsegmental levels. No active bleeding noted. Mucosa appeared normal. Few flecks of purulent mucus s secretions noted through right lower lobe and middle lobe which were suctioned right away Then the scope was left bronchial tree was assessed to include the left mainstem bronchus, a thick mucous plug was seen obstructing left mainstem which was suctioned right away and scope was advanced into MADELINE, Lingula, and LLL bronchi to the segmental and subsegmental level. I did not see any significant mucus plugging in the subsegments. No active bleeding noted. Mucosa appeared normal. Patient had BAL obtained from left lower lobe 2 days ago and cultures are pending; so had did not perform any BAL Estimated Blood Loss: None Specimens: None Complications:None; patient tolerated the procedure well. Disposition: Patient remains critically ill, intubated and stays in ICU Loc Tran MD FCCP Pulmonary critical Care Medicine [facility] Acute Procedures Epistaxis Control: Time out performed: Yes
[2022-02-03] VITALS (54 sets, daily range): BP systolic 71–136; BP diastolic 46–85; PULSE 78–133; RESP 14–17; TEMP 36.2–37; O2SAT 88–96
[2022-02-03] MEDS: propofol 1,000 MG/100 ML INJ 32.66 MG IV (00:22)
[2022-02-03] MEDS: propofol 1,000 MG/100 ML INJ 38.1 MG IV ×8 (02:13→20:26)
[2022-02-03] MEDS: ipratropium-albuterol 3 mL Neb INHALATION ×4 (02:37→19:53)
[2022-02-03] MEDS: acetylcysteine 200 mg/mL SDV 4 mL 100 MG INHALATION ×4 (02:38→19:52)
[2022-02-03 03:41] LABS: Basophils % 0.2 %; Hematocrit 29.3 % (42.0-52.0); Lymphocytes # 0.6 10^3/uL (0.8-4.8); Lymphocytes % 4.7 %; Mean Corpuscular HGB Conc 30.7 g/dL (30.0-36.0); Mean Corpuscular Hemoglobin 29.5 pg (28.0-34.0); Mean Corpuscular Volume 96.1 fl (80-94); Mean Platelet Volume 11.5 fL (7.4-10.4); Monocytes # 0.5 10^3/uL (0.2-0.9); Monocytes % 3.8 %; Neutrophils # 12.02 10^3/uL (1.8-7.7); Neutrophils % 90.6 %; Nucleated Red Blood Cells % 0 %; Platelet Count 281 10^3/cmm (130-400); Red Blood Count 3.05 10^6/uL (4.1-5.3); Red Cell Distribution Width 15.3 % (12.1-15.1); White Blood Count 13.3 10^3/uL (4.0-10.0)
[2022-02-03 03:59] LABS: Alanine Aminotransferase 18 U/L (0-41); Albumin Level 2.9 g/dL (3.5-5.2); Alkaline Phosphatase 80 U/L (40-130); Aspartate Amino Transferase 34 U/L (0-40); Blood Urea Nitrogen 44 mg/dL (8-23); Calcium 8.7 mg/dL (8.5-10.5); Chloride 91 mmol/L (98-107); Globulin 3.5 g/dL (1.3-4.6); Glomerular Filtration Rate 51.4 mL/min (90-130); Glucose 269 mg/dL (65-115); Osmolality Calculated 317 mOsm/kg (285-295); Potassium 4.2 mmol/L (3.5-5.1); Sodium 143 mmol/L (136-145); Total Bilirubin 0.2 mg/dL (0.15-1.2); Total Protein 6.4 g/dL (6.6-8.7)
[2022-02-03 04:19] LABS: Anion Gap 15.2 (5-19)
[2022-02-03 04:20] LABS: Carbon Dioxide 41 mmol/L (22-29)
[2022-02-03] MEDS: metoprolol tartrate 1 mg/1 mL SDV 5 mL 5 MG IVP (04:28)
[2022-02-03 06:07] LABS: ABG PH Result 7.45 (7.35-7.45); Alveolar-Arterial Oxygen Gradi 49.6 mmHg (5-10); Base Excess ABG 18.3 mmol/L (-2.0-2.0); Blood Gas Allen Test Pos; Blood Gas Operator Identificat JB; Blood Gas Sample Site Radial, right; Blood Gas Sample Type Arterial; Blood Gas Tidal Volume 0.45; Carboxyhemoglobin 1.1 %THgb (0.4-20.1); HGB O2 Sat 92.7 % (95-100); Ionized Calcium Level - ABG 1.1 mmol/L (1.1-1.4); Methemoglobin 0.6 % (0.4-1.5); Oxygen Device VENT; Oxygen Saturation ABG 94.3; PO2 ABG 73.2 mmHg (80.0-100.0); Potassium Level - ABG 3.8 mmol/L (3.5-5.0); Total Hemoglobin 9.8 g/dL (14-18)
[2022-02-03 06:08] LABS: ABG PCO2 65.6 mmHg (35-45)
[2022-02-03 07:44] LABS: Glucose Point of Care 272 mg/dL (70-110)
[2022-02-03] MEDS: budesonide 0.5 mg/2 mL Neb INHALATION ×2 (07:54→19:52)
[2022-02-03] MEDS: sodium chloride 3.5% neb 4 mL Neb INHALATION ×2 (07:54→19:55)
--- NOTE | 2022-02-03 08:17 | XR_ITS ---
WS: [id number] Portable AP supine chest, 02/03/2022 Clinical Data: follow up Comparison: Portable chest, 02/02/2022 Findings: The endotracheal tube, nasogastric tube, left subclavian catheter and monitor leads remain in the same position. There is opacification of the majority of the left lung with a shift of the hea rt and mediastinum from right to left. There is a developing right basilar opacity which may represen t atelectasis and/or pneumonia. XR/XR chest 1V portable [id number] Impression: 1. No change in position of multiple tubes. 2. Development of moderate right basilar opacity. 3. No change in left lung opacity in mediastinal and cardiac shift from right t o left.
--- NOTE | 2022-02-03 08:19 | ECG_ITS ---
[facility] Test Date: 2022-02-03 Pat Name: Wayne Nicholson Department: Room: ICU12 Gender: Male Machine Stitcher: : [id number] Requested By: Loc Adams Order Number: [id number] Marcello MD: Gm Mathis M.D. Measurements Intervals [place] Rate: 136 P: AR: QRS: 65 QRSD: 103 T: -42 QT: 328 QTc: 494 Interpretive Statements ATRIAL FIBRILLATION WITH RAPID VENTRICULAR RESPONSE LOW QRS VOLTAGE IN PRECORDIAL LEADS [QRS DEFLECTION < 1.0 mV IN CHEST LEADS] INCOMPLETE RIGHT BUNDLE BRANCH BLOCK [90+ ms QRS DURATION, TERMINAL R IN V1/V2, 40+ ms S IN I/aVL/V4/V5/V6] MINIMAL ST DEPRESSION [0.025+ mV ST DEPRESSION] ABNORMAL QRS-T ANGLE [QRS-T AXIS DIFFERENCE > 60] Compared to ECG 01/30/2022 18:30:20 ST (T wave) deviation now present Electronically Signed On 02-03-2022 16:33:07 CDT by Gm Mathis M.D. [id number]
[2022-02-03] MEDS: insulin lispro 100 unit/1 mL SUBCUT ×5 (08:31→20:27)
[2022-02-03] MEDS: pantoprazole 40 mg SDV IVP ×2 (08:31→19:07)
[2022-02-03] MEDS: insulin glargine 100 units/1 mL 35 UNIT SUBCUT ×2 (08:32→20:27)
[2022-02-03] MEDS: FUROsemide 10 mg/mL SDV 4mL 40 MG IVP (08:32)
[2022-02-03] MEDS: metoprolol tartrate 25 mg Tablet PO ×2 (08:32→20:26)
[2022-02-03] MEDS: guaiFENesin 600 mg Tablet 1200 MG PO ×2 (08:32→18:06)
[2022-02-03] MEDS: nystatin powder 15 gm Btl 1 APPLIC TOPICAL ×2 (08:34→18:07)
[2022-02-03] MEDS: chlorhexidine gluconate 4% Btl 118 mL 1 APPLIC TOPICAL ×4 (08:34→20:29)
[2022-02-03 09:58] LABS: Vancomycin Trough 30.2 ug/mL (10-15)
--- NOTE | 2022-02-03 10:41 | P.PN_ITS ---
Subjective Subjective: -Seen patient at bedside -Patient tachycardic with heart rate ranging from 1 40-1 60;-Patient received metoprolol yesterday night and heart rate was 120< -However today morning EKG showed atrial fibrillation with rapid ventricular response -Patient still requiring FiO2 65% on ventilator -Chest x-ray did not show any significant improvement of left lung opacity and advair classes and there is new right basilar opacity -Vanco was held last trough was high -Patient is net -7 L and clinically appears somewhat dehydrated; will hold Lasix and give 250 bolus -Other labs and imaging reviewed Vitals/I&O/Wt Last Vital Signs Temp 98.6 F 02/03/22 10:00 Pulse 119 H 02/03/22 10:00 Resp 16 02/03/22 08:05 BP 116/80 02/03/22 10:00 Pulse Ox 94 02/03/22 10:00 O2 Del Method 02/03/22 10:00 O2 Flow Rate 60 02/02/22 21:45 FiO2 65 02/03/22 08:05 02/02/22 02/03/22 02/03/22 22:59 06:59 14:59 Intake Total 655.711 / 1414.939 260.421 / 1675.360 565.062 / 565.062 Output Total 850 / 2350 1100 / 3450 Balance -194.289 / -935.061 -839.579 / -1774.640 565.062 / 565.062 Weight last 48 hrs Weight 429 lb Weight 439 lb 8 oz Physical Exam Narrative: PHYSICAL EXAM: General: lying in bed, sedated and intubated. HEENT:NCAT, PERRLA, EOMI Neck: Supple Lungs: Crackles predominantly on left side Heart: s1/s2, RRR Abd: Significantly obese abdomen, rash noted in creases, soft, NT, ND, BS + Normoactive Extremities: No edema PRODUCE DEPARTMENT MANAGER: sedated and limited PRODUCE DEPARTMENT MANAGER exam possible. SKIN: no rash LDA: # CVC: Left IJ Urinary Catheter Management: Lord: Cath Placed During This Visit: no Reason for Continuing Indwelling Catheter: Accurate Measurement of Urinary Output in Critically Ill Patients Data : 02/03/22 03:24 02/03/22 03:24 Other Labs: Radiology Impressions Chest X-Ray 02/03/22 08:17 Impression: 1. No change in position of multiple tubes. 2. Development of moderate right basilar opacity. 3. No change in left lung opacity in mediastinal and cardiac shift from right to left. Laboratory Results WBC 13.3 10^3/uL (4.0-10.0) H 02/03/22 03:24 RBC 3.05 10^6/uL (4.1-5.3) L 02/03/22 03:24 Hgb 9.0 g/dL (11.7-16.6) L 02/03/22 03:24 Hct 29.3 % (42.0-52.0) L 02/03/22 03:24 MCV 96.1 fl (80-94) H 02/03/22 03:24 MCH 29.5 pg (28.0-34.0) 02/03/22 03:24 MCHC 30.7 g/dL (30.0-36.0) 02/03/22 03:24 RDW 15.3 % (12.1-15.1) H 02/03/22 03:24 Plt Count 281 10^3/cmm (130-400) 02/03/22 03:24 MPV 11.5 fL (7.4-10.4) H 02/03/22 03:24 Neut % (Auto) 90.6 % 02/03/22 03:24 Lymph % (Auto) 4.7 % 02/03/22 03:24 Sully % (Auto) 3.8 % 02/03/22 03:24 Eos % (Auto) 0.0 % 02/03/22 03:24 Baso % (Auto) 0.2 % 02/03/22 03:24 Neut # (Auto) 12.02 10^3/uL (1.8-7.7) H 02/03/22 03:24 Lymph # (Auto) 0.6 10^3/uL (0.8-4.8) L 02/03/22 03:24 Sully # (Auto) 0.5 10^3/uL (0.2-0.9) 02/03/22 03:24 Eos # (Auto) 0.0 10^3/uL (0.0-0.8) 02/03/22 03:24 Baso # (Auto) 0.0 10^3/uL (0.0-0.1) 02/03/22 03:24 Nucleated RBC % (auto) 0 % 02/03/22 03:24 Nucleated RBCs # 0.0 /100WBC 02/03/22 03:24 PT 17.20 SECONDS (12.1-14.9) H 01/31/22 03:40 INR 1.37 (0.8-1.2) H 01/31/22 03:40 APTT 41.4 SECONDS (23.9-36.7) H 01/31/22 03:40 Specimen Type Arterial 02/03/22 05:53 Sample Site Radial, right 02/03/22 05:53 ABG pH 7.45 (7.35-7.45) 02/03/22 05:53 ABG pCO2 65.6 mmHg (35-45) H* 02/03/22 05:53 ABG pO2 73.2 mmHg (80.0-100.0) L 02/03/22 05:53 ABG HCO3 45.0 mmol/L (22-26) H 02/03/22 05:53 ABG O2 Saturation 94.3 02/03/22 05:53 ABG Base Excess 18.3 mmol/L (-2.0-2.0) H 02/03/22 05:53 Jax Test Pos 02/03/22 05:53 A-a O2 Gradient 49.6 mmHg (5-10) H 02/03/22 05:53 Hematocrit 30.0 % (42-52) L 02/03/22 05:53 Hgb O2 Saturation 92.7 % (95-100) L 02/03/22 05:53 Carboxyhemoglobin 1.1 %THgb (0.4-20.1) 02/03/22 05:53 Methemoglobin 0.6 % (0.4-1.5) 02/03/22 05:53 Total Hemoglobin 9.8 g/dL (14-18) L 02/03/22 05:53 Sodium 141.0 mmol/L (131-143) 02/03/22 05:53 Potassium 3.8 mmol/L (3.5-5.0) 02/03/22 05:53 Glucose 252.0 mg/dL (70-115) H 02/03/22 05:53 Ionized Calcium 1.1 mmol/L (1.1-1.4) 02/03/22 05:53 O2 Delivery Device Vent 02/03/22 05:53 O2 Liters/Min 4.0 % 01/30/22 12:06 FiO2 75.0 % 02/03/22 05:53 Tidal Volume 0.45 02/03/22 05:53 PEEP 12.0 cmH20 02/03/22 05:53 Truck Service Technician ID Krishna 02/03/22 05:53 Sodium 143 mmol/L (136-145) 02/03/22 03:24 Potassium 4.2 mmol/L (3.5-5.1) 02/03/22 03:24 Chloride 91 mmol/L (98-107) L 02/03/22 03:24 Carbon Dioxide 41 mmol/L (22-29) H 02/03/22 03:24 Anion Gap 15.2 (5-19) 02/03/22 03:24 BUN 44 mg/dL (8-23) H 02/03/22 03:24 Creatinine 1.4 mg/dL (0.7-1.2) H 02/03/22 03:24 GFR Calculation 51.4 mL/min (90-130) L 02/03/22 03:24 Glucose 269 mg/dL (65-115) H 02/03/22 03:24 POC Glucose 272 mg/dL (70-110) H 02/03/22 07:41 Calculated Osmolality 317 mOsm/kg (285-295) H 02/03/22 03:24 Lactic Acid 0.9 mmol/L (0.5-2.2) 01/30/22 17:10 Uric Acid 7.3 mg/dL (3.4-7.0) H 01/31/22 03:40 Calcium 8.7 mg/dL (8.5-10.5) 02/03/22 03:24 Phosphorus 3.1 mg/dL (2.5-4.5) 01/31/22 03:40 Magnesium 2.1 mg/dL (1.7-2.3) 01/31/22 03:40 Iron 17 ug/dL (59-158) L 01/31/22 03:40 TIBC 191 mcg/dl 01/31/22 03:40 % Saturation 8.9 % (20-50) L 01/31/22 03:40 Unsat Iron Binding 174 ug/dL (112-347) 01/31/22 03:40 Total Bilirubin 0.2 mg/dL (0.15-1.2) 02/03/22 03:24 AST 34 U/L (0-40) 02/03/22 03:24 ALT 18 U/L (0-41) 02/03/22 03:24 Alkaline Phosphatase 80 U/L (40-130) 02/03/22 03:24 Creatine Kinase 71 U/L (39-308) 01/30/22 12:03 Troponin T Baseline 35 ng/L (0-15) H 01/30/22 12:03 Troponin T 120 Minute 34.86 ng/L (0-15) H 01/30/22 14:05 Delta Troponin T -0.14 ABS# (0-10) L 01/30/22 14:05 Troponin T Hi Sens 6Hr 32.80 ng/L (0-15) H 01/30/22 17:59 Troponin T Hi Sens 6Hr Delta -2.20 ng/L (0-12) L 01/30/22 17:59 NT-Pro-B Natriuret Pep 2048 pg/mL (0-125) H 01/30/22 12:03 Total Protein 6.4 g/dL (6.6-8.7) L 02/03/22 03:24 Albumin 2.9 g/dL (3.5-5.2) L 02/03/22 03:24 Globulin 3.5 g/dL (1.3-4.6) 02/03/22 03:24 Vitamin B12 1289 pg/mL (232-1245) H 01/31/22 03:40 Folate 18.2 ng/mL (4.5-32.2) 01/31/22 03:40 Procalcitonin 0.24 ng/mL (0-0.5) 01/31/22 03:40 Urine Color Straw (Yellow) 01/30/22 12:49 Urine Appearance Clear (CLEAR) 01/30/22 12:49 Urine pH 5 (5-7) 01/30/22 12:49 Ur Specific [place] 1.010 (1.005-1.030) 01/30/22 12:49 Urine Protein Neg (Negative) 01/30/22 12:49 Urine Glucose (UA) Norm (Normal) 01/30/22 12:49 Urine Ketones Negative (Negative) 01/30/22 12:49 Urine Blood Neg (Negative) 01/30/22 12:49 Urine Nitrate Negative (Negative) 01/30/22 12:49 Urine Bilirubin Neg (Negative) 01/30/22 12:49 Urine Urobilinogen Norm mg/dL (Negative) 01/30/22 12:49 Ur Leukocyte Esterase Negative (Negative) 01/30/22 12:49 Vancomycin Trough 30.2 ug/mL (10-15) H* 02/03/22 09:04 Coronavirus 229E (PCR) Not detected (NOT DETECT) 01/30/22 17:09 SARS-CoV-2 (PCR) Not detected (NOT DETECT) 01/30/22 17:09 Micro: Microbiology 01/30/22 15:45 Gram Stain - Final Sputum - Endotracheal Tube Aspirate Sputum Culture - Preliminary 01/31/22 15:11 Gram Stain - Final Lung Left Lower Lobe - #1 Bronchial Washings Culture - Preliminary 02/02/22 08:20 Legionella Urinary Antigen - Final Urine,Clean Catch Bacterial Antigens - Final A&P Assessment and plan (1) Acute on chronic respiratory failure with hypoxia and hypercapnia: (2) SHERLEY (obstructive sleep apnea): (3) CHF (congestive heart failure): Qualifiers: Heart failure type: diastolic Heart failure chronicity: acute on chronic Qualified Code(s): I50.33 - Acute on chronic diastolic (congestive) heart failure (4) CKD stage 2 due to type 2 diabetes mellitus: (5) Atrial fibrillation: Qualifiers: Atrial fibrillation type: longstanding persistent Qualified Code(s): I48.11 - Longstanding persistent atrial fibrillation (6) Diabetes mellitus, type II: Qualifiers: Diabetes mellitus complication status: with hyperglycemia Diabetes mellitus retirement insulin use: with retirement use Qualified Code(s): E11.65 - Type 2 diabetes mellitus with hyperglycemia; Z79.4 - allergist/immunologist (current) use of insulin (7) Chronic anticoagulation: (8) COPD (chronic obstructive pulmonary disease): Qualifiers: COPD type: COPD with acute exacerbation Qualified Code(s): J44.1 - Chronic obstructive pulmonary disease with (acute) exacerbation (9) On home oxygen therapy: (10) Difficulty with BiPAP use: (11) Mucus plugging of bronchi: (12) Aspiration pneumonia: (13) BMI 50.0-59.9, adult: (14) Goals of care, counseling/discussion: Plan #Acute on chronic hypercapnic respiratory failure in patient with underlying grade 3 diastolic heart failure, COPD, obstructive sleep apnea, obesity hypoventilation-noncompliant with home BiPAP -Complicated by episode of vomiting leading to aspiration and plugging of left tracheobronchial tree -Intubated and currently on 450/10/50 percent FiO2-ABG pH is compensated and PCO2 down to 66 -Underwent BAL/aspiration of mucous plugs on 01/31/2022-BAL cultures pending -Today again so worsening chest x-ray with left mediastinal shift-underwent repeat bronchoscopy-able to aspirate breathing left mainstem mucous plug-however postprocedure chest x-ray did not improve much and there is a new right basilar opacity -Recommended to increase PEEP and continue hypertonic saline/Mucomyst nebulization every 12 hours and chest physiotherapy 3 times a day -Continue DuoNeb nebulization and taper down IV steroids -Currently patient on vancomycin and imipenem; monitor Vanco level -BAL cultures are still pending, urine Legionella antigen and bacterial antigens are negative -Continue Precedex for anxiety and fentanyl/propofol for sedation -We will obtain CT chest #Admitted with AMS-likely secondary to CO2 narcosis due to noncompliant with BiPAP -Currently on ventilator and pH is compensated with PCO2 66 which is most likely his baseline #Diastolic CHF #EKG today morning showed atrial fibrillation with RVR -Grade 3/4 diastolic CHF on previous echo 2018 -He is on Lasix 60 Mg IVP-good urine output and net -7 L-we will hold Lasix -Echocardiogram ordered and pending -We will start amiodarone -We will continue to monitor electrolytes, renal functions #JAMES-likely secondary to sepsis/prerenal -Requiring intermittent Levophed to maintain MAP greater than 65 -Monitor input output, renal parameters -Hold Lasix #Uncontrolled sugars probably secondary to steroids -Currently on Lantus 35 bid will add scale coverage -Monitor sugars #Goals of care discussion -Had bedside discussion with Ms. Mcnulty patient's sister about patient's medical condition. She informed that patient is noncompliant with his BiPAP and has had frequent hospital admissions for hypercapnic respiratory failure. She told patient does not want to go to [facility] and it is challenging to convince patient to use his BiPAP at home. I have explained that currently patient's has significant mucous plugging from aspiration and will perform repeat bronchoscopy to clear the airways, treat with antibiotics while supporting his breathing with ventilator-when it comes to the point of extubation we will discuss with family about reintubation and further goals of care. Meanwhile I have recommended her to talk to patient's significant other about patient's wishes, so that we all can meet and have a family meeting regarding future goals of care. ICU CHECKLIST: Problem list updated Verbal orders reviewed and signed Analgesia: Fentanyl Glycemic Control: Insulin Nutrition: N.p.o. Restraint Renewal (within 24 hrs): Yes Ulcer Prophylaxis: PPI Chemical Thromboprophylaxis: Lovenox Mechanical Thromboprophylaxis: SCDs Need for Central line: For pressors Need for Lord catheter: For close urine output monitoring Critical Care Time (No Overlap): 65 min This patient has a high probability of sudden, clinically significant deterio ration, which requires the highest level of physician preparedness to intervene urgently. I managed/supervised life or organ supporting interventions that required frequent physician assessment. I devoted my full attention in the ICU to the direct care of this patient for the period of time indicated above. Time I spent with family or surrogate(s) is included only if the patient was incapable of providing necessary information or participating in decision making. Time devoted to teaching and to any procedures I billed separately is not included. Services Provided: Telemetry review Mechanical Ventilation Hemodynamic interpretation, assessment and management Review and interpretation of CXR Review and interpretation of lab values Review and interpretation of microbiologic data and culture results Review of medications and administration Review and interpretation of Nutrition requirements and management Discussion of management with other consultants and services Clinical update to family members I will be out of town until 02/07/2022; unfortunately cannot participate in patient care; I have informed hospitalist taking care of the patient Attestations Medical Necessity Statement*: Continues to require mechanical ventilatory support for hypercapnic respiratory failure and significant aspiration pneumonia with left lung atelectasis Time Spent in Patient Care: Greater than 35 minutes (>than 50% of time spent in counselling and/or direct pt care on unit) . Critical Care Time: The high probability of a clinically significant, sudden or life threatening deterioration of the patient's [neurological, pulmonary, cardiac, renal, endocrine, infectious] system(s) required my full and direct attention, intervention and personal management. The critical care time is as shown. This time is in addition to time spent performing any reported procedures but includes the following: [x] Data and vital sign review and interpretation [x] Patient assessment, examination and intervention [x] Documentation [x] Medication orders and management Critical Care Time (min): 55 Coding Level of Care Code Acute Director Of Partnerships for Oraciog Fwd Diagnoses Acute on chronic respiratory failure with hypoxia and hypercapnia J96.21; J96.22 SHERLEY (obstructive sleep apnea) G47.33 CHF (congestive heart failure) I50.33 Heart failure type: diastolic Heart failure chronicity: acute on chronic CKD stage 2 due to type 2 diabetes mellitus E11.22; N18.2 Atrial fibrillation I48.11 Atrial fibrillation type: longstanding persistent Diabetes mellitus, type II E11.65; Z79.4 Diabetes mellitus complication status: with hyperglycemia Diabetes mellitus greens picker insulin use: with greens picker use Chronic anticoagulation Z79.01 COPD (chronic obstructive pulmonary disease) J44.1 COPD type: COPD with acute exacerbation On home oxygen therapy Z99.81 Difficulty with BiPAP use Z78.9 Mucus plugging of bronchi T17.500A Aspiration pneumonia J69.0 BMI 50.0-59.9, adult Z68.43 Goals of care, counseling/discussion Z71.89
--- NOTE | 2022-02-03 11:52 | PC.CHAP ---
Pastoral Care Encounter/Spiritual Assessment Type of Contact [] Declined steamer blocker visit [] Patient/Family/Request visit [] Outpatient visit [] Follow-up visit [] Physician referral [] Code/Alert [x] Routine visit [] Staff referral [] Actively dying [] Patient sleeping [] Family support [] [] Out of room [] Palliative care [] [] Receiving care in room [] Pre-surgical visit [] Trauma [] Long length of stay [z] ICU visit [] Other: Relational/Emotional Strength [] Patient feels connected with others/family/visitors/staff [] Distress [] Loneliness/isolation [] Abandonment Spirituality of Patient [] Person of Ruchi [] Attends Rastafari of their Ruchi [] Believes in Prayer [] Reads Bible or Mormon materials [] There are Spiritual issues to be addressed Tanning Drum Operator 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 [z] Prayer [] Active listening [] Non-anxious presence [] Spiritual/emotional support [] Crisis/trauma care [] Spiritual counseling [] Bereavement support [] Provided bereavement packet [] Provided Bible/devotional materials [] Provided toy/stuffed animal, coloring book to patient or family member [] Provided Communion [] Anointing/[place] [] Salvation [z] Completed spiritual assessment [] Other: Impact on Illness or Injury [] Angry [] Fearful [] Anxious [] Often cries [] Exhaustion [] Unable to work [] Unable to attend catholic [] Unable to walk/stand [] Unable to read [] Unable to drive [] Unable to eat/drink [] Unable to sleep [] Unable to be with family [] Patient intubated [] Other: Summary Time spent with patient
[2022-02-03 12:08] LABS: Glucose Point of Care 260 mg/dL (70-110)
[2022-02-03] MEDS: enoxaparin 150 mg/mL Syringe SUBCUT ×2 (12:08→20:26)
[2022-02-03] MEDS: docusate sodium 10 mg/mL (5ml) Liq 100 MG PO ×2 (12:08→20:26)
--- NOTE | 2022-02-03 13:28 | PM.PN ---
Subjective Subjective: Intubated, sedated. Not in distress. Vitals/I&O/Wt Last Vital Signs Temp 98.6 F 02/03/22 10:00 Pulse 92 02/03/22 12:00 Resp 17 02/03/22 11:10 BP 126/67 02/03/22 12:00 Pulse Ox 93 02/03/22 12:00 O2 Del Method 02/03/22 12:00 O2 Flow Rate 60 02/02/22 21:45 FiO2 65 02/03/22 11:10 02/02/22 02/03/22 02/03/22 22:59 06:59 14:59 Intake Total 655.711 / 1414.939 260.421 / 7705.600 1200.187 / 1010.187 Output Total 850 / 2350 1100 / 3450 Balance -194.289 / -935.061 -839.579 / -9444.940 6271.187 / 1010.187 Weight last 48 hrs Weight 194.591 kg Weight 199.354 kg Physical Exam Const: GENERAL APPEARANCE: patient mechanically ventilated NUTRITIONAL APPEARANCE: obese morbidly obese Neck/C-Spine: OTHER: Thick LIJ CVC Resp: AUSCULTATION: rhonchi and diminished lung sounds Cardio: COMMON NORMALS: regular rhythm, S1 normal heart sound present, S2 normal heart sound present and No murmurs present (Cardio) RATE: tachycardic RHYTHM: regular rhythm HEART SOUNDS: S1 normal heart sound present and S2 normal heart sound present GI: COMMON NORMALS: Normal to inspection, nondistended, normoactive bowel sounds present and Soft to palpation PALPATION: Yes Soft to palpation OTHER: Large pannus Extremity: COMMON NORMALS: no joint enlargement GENERAL: Yes edema (2+) Skin: OTHER: BL chronic stasis changes Urinary Catheter Management: Lord: Cath Placed During This Visit: no Reason for Continuing Indwelling Catheter: Accurate Measurement of Urinary Output in Critically Ill Patients Data : 02/03/22 03:24 02/03/22 03:24 Micro: Microbiology 01/30/22 15:45 Gram Stain - Final Sputum - Endotracheal Tube Aspirate Sputum Culture - Preliminary 01/31/22 15:11 Gram Stain - Final Lung Left Lower Lobe - #1 Bronchial Washings Culture - Preliminary 02/02/22 08:20 Legionella Urinary Antigen - Final Urine,Clean Catch Bacterial Antigens - Final A&P Assessment and plan (1) Acute on chronic respiratory failure with hypoxia and hypercapnia: Persistent left hemithorax opacification, despite clearance of mucus from mainstem bronchus on bronchoscopy. Bedside ultrasonography was assessed, no obvious pleural effusion. Undergoing CT chest for a more detailed review. Suspected mucous plugging/compaction with persistent atelectasis in the lower airways and accessible by bronchoscopy. Hold off diuretics for now, given 250 mL bag of LR. Continue acetylcysteine, 3.5 % nebulized saline. Continue chest vest, pulmonary toilet. Continue to biotics, inhaled steroid. Systemic steroid de-escalated. Appreciate pulm/critical recommendations. Requiring sedation due to intermittent anxiety/agitation. With sedation blood pressure soft. Multifactorial from acute on chronic COPD, CHF and variable compliance with bipap/oxygen after apparent aspiration plus mucous plugging. Discussed with family. (2) Encephalopathy acute: Appears to be improved, he is awake, alert, nodding answers to questions, following directions. Family report may be prone to bad anxiety, continue sedation currently to keep him easily arousable but calm. Precedex added. Secondary to hypoxemia, hypercapnia and pneumonia. (3) CHF (congestive heart failure): Acute on chronic. Some increase in BUN today, has produced large amount of urine. For now hold off further diuretic, given back 250 mL LR. In negative balance. Edema decreasing. Normally on furosemide plus potassium, spironolactone and nitrates Qualifiers: Heart failure type: diastolic Heart failure chronicity: acute on chronic Qualified Code(s): I50.33 - Acute on chronic diastolic (congestive) heart failure (4) COPD (chronic obstructive pulmonary disease): With severe exacerbation, with copious sputum secretions, de-escalating IV steroid Inhaled steroid, antibiotic coverage with vancomycin, Primaxin. Follow-up sputum cultures. Breathing treatments. Pulmonary toilet. As above. Chronically on oxygen generally at 4L bnc at rest but lately requiring 6L Qualifiers: COPD type: COPD with acute exacerbation Qualified Code(s): J44.1 - Chronic obstructive pulmonary disease with (acute) exacerbation (5) Anemia: Chronic macrocytic anemia with baseline hemoglobin around 10 or so, currently with lower hemoglobin, possibly from dilution No reported blood loss No available recent anemia labs but review of old records shows that B12 and folate normal in 2012, iron, percent saturation and ferritin normal in 2019 Qualifiers: Anemia type: unspecified type Qualified Code(s): D64.9 - Anemia, unspecified (6) CKD stage 2 due to type 2 diabetes mellitus: JAMES on CKD, creatinine better today down to 1.4. Continue diuresis currently, reassess renal function. Hyperkalemia resolved. (7) Hypertension: Blood pressure soft with sedation. In addition to beta blockade for atrial fibrillation and diuretics + nitrates for CHF, chronically on lisinopril which is currently on hold. (8) Atrial fibrillation: Initially A. fib with RVR, improved. Currently rate controlled. Continue metoprolol. Lovenox. Qualifiers: Atrial fibrillation type: longstanding persistent Qualified Code(s): I48.11 - Longstanding persistent atrial fibrillation (9) Chronic anticoagulation: On Eliquis, secondary to atrial fibrillation (10) Dyslipidemia: Chronically on statin Last lipid panel in 06/2020 showed total cholesterol of 180, LDL 111, HDL 25, TG 169 (11) Diabetes mellitus, type II: Continue Lantus, sliding scale insulin. We will increase Lantus dose further to 35 units twice daily. A1c 9.1 on 12/03/2021 Qualifiers: Diabetes mellitus complication status: with hyperglycemia Diabetes mellitus terminal block assembler insulin use: with fci use Qualified Code(s): E11.65 - Type 2 diabetes mellitus with hyperglycemia; Z79.4 - supervisor intermediates (current) use of insulin (12) SHERLEY (obstructive sleep apnea): Has Bipap but inconsistent use, per recent Home Health Discharge, he will report compliance but an alondra has shown use only a couple of times in last month (13) BMI 50.0-59.9, adult: Plan Hypotension: Has weaned off pressor. Today required sedation due to anxiety/agitation, with sedation blood pressure soft. Pressor as needed to maintain MAP. Lymphedema Chronically on duloxetine Chronically on vitamin C, multivitamin, vitamin D, vitamin B12 Recently discharged from home health services, last week Anticipate discharge either home plus or minus home health versus even potential need for placement pending on clinical course Attestations Medical Necessity Statement*: Continue admission for assessment management of respiratory failure, extensive and recurrent mucous plugging, persistent atelectasis, pneumonia, COPD exacerbation, CHF, JAMES. Critical Care Time: The high probability of a clinically significant, sudden or life threatening deterioration of the patient's respiratory, cardiac, renal system(s) required my full and direct attention, intervention and personal management. The critical care time is as shown. This time is in addition to time spent performing any reported procedures but includes the following: x Data and vital sign review and interpretation x Patient assessment, examination and intervention x Documentation x Medication orders and management Critical Care Time (min): 45 Coding Level of Care Code Acute [place] Operator for [employer] Fwd Diagnoses Acute on chronic respiratory failure with hypoxia and hypercapnia J96.21; J96.22 Encephalopathy acute G93.40 CHF (congestive heart failure) I50.33 Heart failure type: diastolic Heart failure chronicity: acute on chronic COPD (chronic obstructive pulmonary disease) J44.1 COPD type: COPD with acute exacerbation Anemia D64.9 Anemia type: unspecified type CKD stage 2 due to type 2 diabetes mellitus E11.22; N18.2 Hypertension I10 Atrial fibrillation I48.11 Atrial fibrillation type: longstanding persistent Chronic anticoagulation Z79.01 Dyslipidemia E78.5 Diabetes mellitus, type II E11.65; Z79.4 Diabetes mellitus complication status: with hyperglycemia Diabetes mellitus fci insulin use: with terminal block assembler use SHERLEY (obstructive sleep apnea) G47.33 BMI 50.0-59.9, adult Z68.43
--- NOTE | 2022-02-03 15:49 | CT_ITS ---
WS: [id number] CT CHEST WITHOUT INTRAVENOUS CONTRAST HISTORY: L hemithorax persistent opacification after removal of mucus TECHNIQUE: Contiguous 5 mm axial imaging performed on the thorax. Coronal and sagittal reformats are submitted. All CT scans at [facility] use at least one of these dose optimization techniques: automated exposure control; mA and/or kV adjustment per patient size (includes targeted exams where dose is matched to clinical indication); or iterative reconstruction. CONTRAST: None DLP: 800.91 mGy.cm COMPARISON: Chest radiograph 02/03/2022 Lungs and central airway: Significant volume loss in the LEFT thorax with shift of the mediastinal st ructures to the LEFT. Complete lobar collapse LEFT lower lobe and partial collapse of the LEFT upper lobe. Dense areas of consolidation from atelectasis with complete obstruction of the central bronchia l tree. There is a very tiny LEFT pleural effusion. Partial atelectasis of the RIGHT lower lobe with a small effusion. No pneumothorax. Heart and pericardium: Heart is shifted to the LEFT. Moderate cardiomegaly. No effusion. Mediastinum and amy: Endotracheal tube in good position ending above the paco. Nasogastric tube al brent the esophagus into the stomach. No adenopathy identified. Vessels: Normal size aorta. Mild atherosclerosis aorta. Normal pulmonary artery. Chest wall and lower neck: No soft tissue masses. Upper abdomen: Nasogastric tube directed towards the antrum of the stomach. No adrenal mass. Visualiz ed liver is normal. Osseous structures: Mild increase in thoracic kyphosis. CT/CT chest wo con [id number] IMPRESSION: 1. Complete collapse LEFT lower lobe and partial collapse LEFT upper lobe with volume loss in the LEFT thorax. 2. Partial atelectasis RIGHT lower lobe with a small effusion. 3. Very small LEFT pleural effusion. 4. Cardiomegaly. 5. Endotracheal tube and nasogastric tubes are in good position.
[2022-02-03 17:44] LABS: Glucose Point of Care 294 mg/dL (70-110)
[2022-02-03] MEDS: sodium chloride 0.9 % (flush) syringe 10 mL IV (18:06)
[2022-02-03] MEDS: lanolin oint 7 gm 1 APPLIC TOPICAL (18:07)
[2022-02-03 20:02] LABS: Glucose Point of Care 252 mg/dL (70-110)
[2022-02-03] MEDS: duloxetine 60 mg Capsule PO (20:26)
[2022-02-03] MEDS: atorvastatin 40 mg Tablet 80 MG PO (20:26)
[2022-02-03] MEDS: artificial tears Op Oint 3.5 gm 1 APPLIC EYE-BOTH (20:30)
[2022-02-04] VITALS (62 sets, daily range): BP systolic 85–116; BP diastolic 49–77; PULSE 70–99; RESP 16–20; TEMP 36–37.1; O2SAT 88–100
[2022-02-04] MEDS: propofol 1,000 MG/100 ML INJ 38.1 MG IV ×8 (01:41→21:39)
[2022-02-04] MEDS: acetylcysteine 200 mg/mL SDV 4 mL 100 MG INHALATION (02:43)
[2022-02-04] MEDS: ipratropium-albuterol 3 mL Neb INHALATION ×4 (02:43→19:57)
[2022-02-04 04:56] LABS: Basophils % 0.1 %; Hematocrit 27.7 % (42.0-52.0); Hemoglobin 8.2 g/dL (11.7-16.6); Lymphocytes # 1.3 10^3/uL (0.8-4.8); Lymphocytes % 11.1 %; Mean Corpuscular HGB Conc 29.6 g/dL (30.0-36.0); Mean Corpuscular Hemoglobin 28.9 pg (28.0-34.0); Mean Corpuscular Volume 97.5 fl (80-94); Mean Platelet Volume 11.7 fL (7.4-10.4); Monocytes # 0.9 10^3/uL (0.2-0.9); Monocytes % 7.8 %; Neutrophils # 9.49 10^3/uL (1.8-7.7); Neutrophils % 80.1 %; Nucleated Red Blood Cells % 0 %; Platelet Count 272 10^3/cmm (130-400); Red Blood Count 2.84 10^6/uL (4.1-5.3); Red Cell Distribution Width 15.2 % (12.1-15.1); White Blood Count 11.8 10^3/uL (4.0-10.0)
[2022-02-04 05:21] LABS: Vancomycin Random 22.1 ug/mL (20.0-40.0)
[2022-02-04 05:22] LABS: Alanine Aminotransferase 21 U/L (0-41); Alkaline Phosphatase 75 U/L (40-130); Anion Gap 11.7 (5-19); Aspartate Amino Transferase 42 U/L (0-40); Blood Urea Nitrogen 66 mg/dL (8-23); Calcium 8.2 mg/dL (8.5-10.5); Carbon Dioxide 39 mmol/L (22-29); Chloride 86 mmol/L (98-107); Globulin 2.3 g/dL (1.3-4.6); Glomerular Filtration Rate 32.2 mL/min (90-130); Glucose 202 mg/dL (65-115); Osmolality Calculated 301 mOsm/kg (285-295); Potassium 3.7 mmol/L (3.5-5.1); Sodium 133 mmol/L (136-145); Total Bilirubin 0.2 mg/dL (0.15-1.2); Total Protein 5.3 g/dL (6.6-8.7)
[2022-02-04 05:24] LABS: Creatinine Clr Calc Pharmacy 63.4608
[2022-02-04 07:24] LABS: Glucose Point of Care 225 mg/dL (70-110)
--- NOTE | 2022-02-04 07:37 | PC.SOCIAL ---
IMM Update Pg 2 of IMM not updated. Patient remains intubated and is not anticipated to DC in the next 24-48hours.
[2022-02-04] MEDS: pantoprazole 40 mg SDV IVP ×2 (07:53→19:29)
[2022-02-04] MEDS: insulin lispro 100 unit/1 mL SUBCUT ×3 (07:55→17:47)
[2022-02-04] MEDS: budesonide 0.5 mg/2 mL Neb INHALATION ×2 (08:12→19:57)
[2022-02-04] MEDS: sodium chloride 3.5% neb 4 mL Neb INHALATION ×2 (08:12→19:57)
--- NOTE | 2022-02-04 08:49 | PC.NUTR ---
Pt has been NPO x 5 days. Should enteral feeding become medically appropriate, recommend Glucerna 1.2 beginning at 15 mls/hr and increasing 10 mls Q8H as tolerated until a goal rate of 65 mls/hr is reached with flushes of 150 mls Q4H. Details in RD assessment.
[2022-02-04] MEDS: guaiFENesin 600 mg Tablet 1200 MG PO ×2 (09:07→17:48)
[2022-02-04] MEDS: docusate sodium 10 mg/mL (5ml) Liq 100 MG PO ×2 (09:09→20:46)
[2022-02-04] MEDS: enoxaparin 150 mg/mL Syringe SUBCUT ×2 (09:10→20:51)
[2022-02-04] MEDS: insulin glargine 100 units/1 mL 35 UNIT SUBCUT ×2 (09:12→20:54)
[2022-02-04] MEDS: nystatin powder 15 gm Btl 1 APPLIC TOPICAL ×2 (09:20→17:37)
[2022-02-04] MEDS: chlorhexidine gluconate 4% Btl 118 mL 1 APPLIC TOPICAL ×4 (09:20→20:54)
[2022-02-04 11:17] LABS: Glucose Point of Care 171 mg/dL (70-110)
--- NOTE | 2022-02-04 11:55 | PM.PN ---
Subjective Subjective: On mechanical ventilatory support. Sedation going, opens eyes, but confused. Vitals/I&O/Wt Last Vital Signs Temp 97.1 F L 02/04/22 10:00 Pulse 98 02/04/22 10:00 Resp 16 02/04/22 11:43 BP 116/69 02/04/22 10:00 Pulse Ox 96 02/04/22 11:43 O2 Del Method 02/04/22 10:00 O2 Flow Rate 60 02/02/22 21:45 FiO2 50 02/04/22 11:43 02/03/22 02/04/22 02/04/22 22:59 06:59 14:59 Intake Total 1016.038 / 2213.855 402.616 / 2616.471 500.643 / 500.643 Output Total 875 / 875 450 / 1325 275 / 275 Balance 141.038 / 1338.855 -47.384 / 1291.471 225.643 / 225.643 Weight last 48 hrs Weight 194.636 kg Weight 194.591 kg Physical Exam Narrative: Life partner and sister at bedside. Const: GENERAL APPEARANCE: patient mechanically ventilated NUTRITIONAL APPEARANCE: obese morbidly obese Neck/C-Spine: OTHER: Thick LIJ CVC Resp: AUSCULTATION: diminished lung sounds Cardio: COMMON NORMALS: regular rhythm, S1 normal heart sound present, S2 normal heart sound present and No murmurs present (Cardio) RATE: tachycardic RHYTHM: regular rhythm HEART SOUNDS: S1 normal heart sound present and S2 normal heart sound present GI: COMMON NORMALS: Normal to inspection, nondistended, normoactive bowel sounds present and Soft to palpation PALPATION: Yes Soft to palpation OTHER: Large pannus Extremity: COMMON NORMALS: no joint enlargement GENERAL: Yes edema (2+) Skin: OTHER: BL chronic stasis changes Urinary Catheter Management: Lord: Cath Placed During This Visit: no Reason for Continuing Indwelling Catheter: Accurate Measurement of Urinary Output in Critically Ill Patients Data : 02/04/22 03:54 02/04/22 03:54 Micro: Microbiology 01/31/22 15:11 Gram Stain - Final Lung Left Lower Lobe - #1 Bronchial Washings Culture - Final 01/30/22 15:45 Gram Stain - Final Sputum - Endotracheal Tube Aspirate Sputum Culture - Preliminary Gram Negative Rods Gram positive kandice A&P Assessment and plan (1) Acute on chronic respiratory failure with hypoxia and hypercapnia: Concern for adhesive atelectasis as per discussion with pulmonology. Discussed with RT strategy with increased PEEP, will try to increase to 14-16. Continue other measures. Sputum culture growing gram-negative rods, gram-positive kandice. Follow-up cultures. Persistent left hemithorax opacification, despite clearance of mucus from mainstem bronchus on bronchoscopy. Bedside ultrasonography was assessed, no obvious pleural effusion. Undergoing CT chest for a more detailed review. Persistent atelectasis in the lower airways despite bronchoscopy times 2 with evacuation of mucous plugging but without reexpansion. Hold off diuretics for now, given 250 mL bag of LR. Continue acetylcysteine, 3.5 % nebulized saline. Continue chest vest, pulmonary toilet. Continue Primaxin, vancomycin, inhaled steroid. Requiring sedation due to intermittent anxiety/agitation. With sedation blood pressure soft. Multifactorial from acute on chronic COPD, CHF and variable compliance with bipap/oxygen after possible aspiration plus mucous plugging. Discussed with family. (2) Encephalopathy acute: Some return of confusion on sedation. Continue reassessments of mental status. Appears to be improved, he is awake, alert, nodding answers to questions, following directions. Family report may be prone to bad anxiety, continue sedation currently to keep him easily arousable but calm. Secondary to hypoxemia, hypercapnia and pneumonia. (3) CHF (congestive heart failure): Acute on chronic. Hold diuretics. Some increase in BUN today, has produced large amount of urine. In negative balance. Edema decreasing. Normally on furosemide plus potassium, spironolactone and nitrates Qualifiers: Heart failure type: diastolic Heart failure chronicity: acute on chronic Qualified Code(s): I50.33 - Acute on chronic diastolic (congestive) heart failure (4) COPD (chronic obstructive pulmonary disease): With severe exacerbation, with copious sputum secretions, de-escalating IV steroid Inhaled steroid, antibiotic coverage with vancomycin, Primaxin. Follow-up sputum cultures. Breathing treatments. Pulmonary toilet. As above. Chronically on oxygen generally at 4L bnc at rest but lately requiring 6L Qualifiers: COPD type: COPD with acute exacerbation Qualified Code(s): J44.1 - Chronic obstructive pulmonary disease with (acute) exacerbation (5) Anemia: Chronic macrocytic anemia with baseline hemoglobin around 10 or so, currently with lower hemoglobin, possibly from dilution No reported blood loss No available recent anemia labs but review of old records shows that B12 and folate normal in 2012, iron, percent saturation and ferritin normal in 2019 Qualifiers: Anemia type: unspecified type Qualified Code(s): D64.9 - Anemia, unspecified (6) CKD stage 2 due to type 2 diabetes mellitus: JAMES on CKD, creatinine up to 2.1. Hold diuretics. Intermittent hypotension, pressors as needed to maintain blood pressure. (7) Hypertension: Blood pressure soft with sedation. In addition to beta blockade for atrial fibrillation and diuretics + nitrates for CHF, chronically on lisinopril which is currently on hold. (8) Atrial fibrillation: Initially A. fib with RVR, improved. Currently rate controlled. Continue metoprolol. Lovenox. Qualifiers: Atrial fibrillation type: longstanding persistent Qualified Code(s): I48.11 - Longstanding persistent atrial fibrillation (9) Chronic anticoagulation: On Eliquis, secondary to atrial fibrillation (10) Dyslipidemia: Chronically on statin Last lipid panel in 06/2020 showed total cholesterol of 180, LDL 111, HDL 25, TG 169 (11) Diabetes mellitus, type II: Continue Lantus, sliding scale insulin. We will increase Lantus dose further to 35 units twice daily. A1c 9.1 on 12/03/2021 Qualifiers: Diabetes mellitus complication status: with hyperglycemia Diabetes mellitus assisted insulin use: with oil heaterman use Qualified Code(s): E11.65 - Type 2 diabetes mellitus with hyperglycemia; Z79.4 - continuous churn buttermaker (current) use of insulin (12) SHERLEY (obstructive sleep apnea): Has Bipap but inconsistent use, per recent Home Health Discharge, he will report compliance but an alondra has shown use only a couple of times in last month (13) BMI 50.0-59.9, adult: Plan Hypotension: Has weaned off pressor. Today required sedation due to anxiety/agitation, with sedation blood pressure soft. Pressor as needed to maintain MAP. Lymphedema Chronically on duloxetine Chronically on vitamin C, multivitamin, vitamin D, vitamin B12 Recently discharged from home health services, last week Anticipate discharge either home plus or minus home health versus even potential need for placement pending on clinical course Attestations Medical Necessity Statement*: Continue admission for assessment management of respiratory failure, pneumonia, persistent atelectasis, thick secretions. Critical Care Time: The high probability of a clinically significant, sudden or life threatening deterioration of the patient's respiratory system(s) required my full and direct attention, intervention and personal management. The critical care time is as shown. This time is in addition to time spent performing any reported procedures but includes the following: x Data and vital sign review and interpretation x Patient assessment, examination and intervention x Documentation x Medication orders and management Critical Care Time (min): 35 Coding Level of Care Code Acute Financial Advisor for g Fwd Diagnoses Acute on chronic respiratory failure with hypoxia and hypercapnia J96.21; J96.22 Encephalopathy acute G93.40 CHF (congestive heart failure) I50.33 Heart failure type: diastolic Heart failure chronicity: acute on chronic COPD (chronic obstructive pulmonary disease) J44.1 COPD type: COPD with acute exacerbation Anemia D64.9 Anemia type: unspecified type CKD stage 2 due to type 2 diabetes mellitus E11.22; N18.2 Hypertension I10 Atrial fibrillation I48.11 Atrial fibrillation type: longstanding persistent Chronic anticoagulation Z79.01 Dyslipidemia E78.5 Diabetes mellitus, type II E11.65; Z79.4 Diabetes mellitus complication status: with hyperglycemia Diabetes mellitus oil heaterman insulin use: with assisted use SHERLEY (obstructive sleep apnea) G47.33 BMI 50.0-59.9, adult Z68.43
[2022-02-04] MEDS: sodium chloride 0.9 % (flush) syringe 10 mL IV (17:00)
[2022-02-04 17:23] LABS: Glucose Point of Care 240 mg/dL (70-110)
[2022-02-04] MEDS: atorvastatin 40 mg Tablet 80 MG PO (20:46)
[2022-02-04] MEDS: duloxetine 60 mg Capsule PO (20:47)
[2022-02-04] MEDS: artificial tears Op Oint 3.5 gm 1 APPLIC EYE-BOTH (20:54)
[2022-02-04 21:24] LABS: Glucose Point of Care 211 mg/dL (70-110)
[2022-02-05] VITALS (57 sets, daily range): BP systolic 91–128; BP diastolic 56–82; PULSE 67–107; RESP 14–16; TEMP 36.3–36.6; O2SAT 85–95; BMI 59.8
[2022-02-05] MEDS: propofol 1,000 MG/100 ML INJ 38.1 MG IV ×10 (00:06→23:55)
[2022-02-05] MEDS: chlorhexidine gluconate 4% Btl 118 mL 1 APPLIC TOPICAL ×6 (01:00→21:12)
[2022-02-05] MEDS: ipratropium-albuterol 3 mL Neb INHALATION ×4 (02:41→20:33)
[2022-02-05] MEDS: metoprolol tartrate 1 mg/1 mL SDV 5 mL 5 MG IVP (04:24)
[2022-02-05 04:28] LABS: Basophils % 0.1 %; Hematocrit 28.6 % (42.0-52.0); Hemoglobin 8.5 g/dL (11.7-16.6); Lymphocytes % 9.6 %; Mean Corpuscular HGB Conc 29.7 g/dL (30.0-36.0); Mean Corpuscular Hemoglobin 28.9 pg (28.0-34.0); Mean Corpuscular Volume 97.3 fl (80-94); Mean Platelet Volume 12.2 fL (7.4-10.4); Monocytes # 0.7 10^3/uL (0.2-0.9); Monocytes % 6.6 %; Neutrophils # 8.59 10^3/uL (1.8-7.7); Neutrophils % 82.9 %; Nucleated Red Blood Cells % 0 %; Platelet Count 243 10^3/cmm (130-400); Red Blood Count 2.94 10^6/uL (4.1-5.3); Red Cell Distribution Width 15.2 % (12.1-15.1); White Blood Count 10.4 10^3/uL (4.0-10.0)
[2022-02-05 05:02] LABS: Vancomycin Random 16.4 ug/mL (20.0-40.0)
[2022-02-05 05:11] LABS: Alanine Aminotransferase 26 U/L (0-41); Alkaline Phosphatase 78 U/L (40-130); Aspartate Amino Transferase 50 U/L (0-40); Blood Urea Nitrogen 67 mg/dL (8-23); Calcium 8.3 mg/dL (8.5-10.5); Carbon Dioxide 38 mmol/L (22-29); Chloride 92 mmol/L (98-107); Globulin 3.2 g/dL (1.3-4.6); Glomerular Filtration Rate 38.4 mL/min (90-130); Glucose 200 mg/dL (65-115); Osmolality Calculated 311 mOsm/kg (285-295); Sodium 138 mmol/L (136-145); Total Bilirubin 0.2 mg/dL (0.15-1.2); Total Protein 6.2 g/dL (6.6-8.7)
[2022-02-05] MEDS: vancomycin 1,000 MG in sodium chloride 0.9% 250 ML 250 MG IV (07:03)
[2022-02-05 07:22] LABS: Glucose Point of Care 228 mg/dL (70-110)
[2022-02-05] MEDS: insulin lispro 100 unit/1 mL SUBCUT ×4 (07:59→21:18)
[2022-02-05] MEDS: pantoprazole 40 mg SDV IVP ×2 (08:15→19:17)
[2022-02-05] MEDS: docusate sodium 10 mg/mL (5ml) Liq 100 MG PO ×2 (08:28→21:14)
[2022-02-05] MEDS: guaiFENesin 600 mg Tablet 1200 MG PO ×2 (08:28→17:24)
[2022-02-05] MEDS: nystatin powder 15 gm Btl 1 APPLIC TOPICAL ×2 (08:37→17:44)
[2022-02-05] MEDS: enoxaparin 150 mg/mL Syringe SUBCUT ×2 (08:38→21:14)
[2022-02-05] MEDS: insulin glargine 100 units/1 mL 35 UNIT SUBCUT (08:40)
[2022-02-05] MEDS: budesonide 0.5 mg/2 mL Neb INHALATION ×2 (08:58→20:31)
[2022-02-05] MEDS: sodium chloride 3.5% neb 4 mL Neb INHALATION ×2 (08:58→20:32)
[2022-02-05 11:14] LABS: Glucose Point of Care 166 mg/dL (70-110)
[2022-02-05] MEDS: meropenem 1,000 MG in sodium chloride 0.9% (plus) 50 ML 100 MG IV ×2 (13:46→21:15)
[2022-02-05] MEDS: sodium chloride 0.9 % (flush) syringe 10 mL IV (16:33)
[2022-02-05 17:04] LABS: Glucose Point of Care 206 mg/dL (70-110)
--- NOTE | 2022-02-05 20:56 | PM.PN ---
Subjective Subjective: Intubated, sedated, not in distress. Vitals/I&O/Wt Last Vital Signs Temp 97.6 F 02/05/22 20:00 Pulse 79 02/05/22 20:30 Resp 14 02/05/22 20:34 BP 96/62 02/05/22 20:30 Pulse Ox 92 02/05/22 20:34 O2 Del Method 02/05/22 20:00 O2 Flow Rate 60 02/02/22 21:45 FiO2 40 02/05/22 20:34 02/05/22 02/05/22 02/05/22 06:59 14:59 22:59 Intake Total 376.860 / 1748.438 380 / 380 1198 / 1578 Output Total 1550 / 2625 450 / 450 1000 / 1450 Balance -1173.140 / -876.562 -70 / -70 198 / 128 Weight last 48 hrs Weight 194.636 kg Weight 194.636 kg Physical Exam Narrative: Sister at bedside. Const: GENERAL APPEARANCE: patient mechanically ventilated NUTRITIONAL APPEARANCE: obese morbidly obese Neck/C-Spine: OTHER: Thick LIJ CVC Resp: AUSCULTATION: rhonchi and diminished lung sounds on the left Cardio: COMMON NORMALS: regular rhythm, S1 normal heart sound present, S2 normal heart sound present and No murmurs present (Cardio) RATE: tachycardic RHYTHM: regular rhythm HEART SOUNDS: S1 normal heart sound present and S2 normal heart sound present GI: COMMON NORMALS: Normal to inspection, nondistended, normoactive bowel sounds present and Soft to palpation PALPATION: Yes Soft to palpation OTHER: Large pannus Extremity: COMMON NORMALS: no joint enlargement GENERAL: Yes edema (trace, difficult to assess) Skin: OTHER: BL chronic stasis changes Urinary Catheter Management: Lord: Cath Placed During This Visit: no Reason for Continuing Indwelling Catheter: Accurate Measurement of Urinary Output in Critically Ill Patients Data : 02/05/22 03:19 02/05/22 03:19 Micro: Microbiology 01/30/22 16:55 Blood Culture - Final Blood NO GROWTH AFTER 5 DAYS 01/30/22 17:10 Blood Culture - Final Blood NO GROWTH AFTER 5 DAYS A&P Assessment and plan (1) Acute on chronic respiratory failure with hypoxia and hypercapnia: Increase PEEP to 14, consider additional increase to 16 if tolerating to help with recruitment with concern for adhesive atelectasis. Follow-up sputum culture, growing gram-negative rods, gram-positive rods. Continue empiric antibiotics at this time. Possible adhesive atelectasis as per discussion with pulmonology. Continue other measures. Pulmonology reevaluation once available early next week. Consideration of tracheostomy, discussed with family. Start low rate tube feeds. Persistent left hemithorax opacification, despite clearance of mucus from mainstem bronchus on bronchoscopy. Bedside ultrasonography was assessed, no obvious pleural effusion. Undergoing CT chest for a more detailed review. Persistent atelectasis in the lower airways despite bronchoscopy times 2 with evacuation of mucous plugging but without reexpansion. Hold off diuretics for now. Continue acetylcysteine, 3.5 % nebulized saline. Continue chest vest, pulmonary toilet. Requiring sedation due to intermittent anxiety/agitation. With sedation blood pressure soft. Multifactorial from acute on chronic COPD, CHF and variable compliance with bipap/oxygen after possible aspiration plus mucous plugging. Discussed with family. Advanced directive is uploaded in the chart. No interventions initial for withdrawal or withholding. Life partner listed as primary DPOA, sister is secondary. (2) Encephalopathy acute: Some return of confusion on sedation. Becomes anxious off sedation. On admission confused, very restless, slid off the bed, required 8 people to replace back in bed. Family report may be prone to bad anxiety, continue sedation to keep him easily arousable but calm. Secondary to hypoxemia, hypercapnia and pneumonia. (3) CHF (congestive heart failure): Acute on chronic. Diuretics on hold for now, renal function with improvement. Reassess volume status, renal function, consider resumption. Normally on furosemide plus potassium, spironolactone and nitrates Qualifiers: Heart failure type: diastolic Heart failure chronicity: acute on chronic Qualified Code(s): I50.33 - Acute on chronic diastolic (congestive) heart failure (4) COPD (chronic obstructive pulmonary disease): With severe exacerbation, with copious sputum secretions Continue Solu-Medrol, inhaled steroid, antibiotic coverage with vancomycin, Primaxin. Follow-up sputum cultures. Breathing treatments. Pulmonary toilet. As above. Chronically on oxygen generally at 4L bnc at rest but lately requiring 6L Qualifiers: COPD type: COPD with acute exacerbation Qualified Code(s): J44.1 - Chronic obstructive pulmonary disease with (acute) exacerbation (5) Anemia: Chronic macrocytic anemia with baseline hemoglobin around 10 or so, currently with lower hemoglobin, possibly from dilution No reported blood loss No available recent anemia labs but review of old records shows that B12 and folate normal in 2012, iron, percent saturation and ferritin normal in 2019 Qualifiers: Anemia type: unspecified type Qualified Code(s): D64.9 - Anemia, unspecified (6) CKD stage 2 due to type 2 diabetes mellitus: JAMES with improvement, creatinine at 1.8, does not yet appear more fluid overloaded, but reassess volume status and renal function. But intermittent hypotension, pressors as needed to maintain blood pressure. (7) Hypertension: Blood pressure soft with sedation. In addition to beta blockade for atrial fibrillation and diuretics + nitrates for CHF, chronically on lisinopril which is currently on hold. (8) Atrial fibrillation: Initially A. fib with RVR, improved. Intermittent tachycardia. Continue to treat pneumonia. Continue amiodarone. Blood pressure intermittently soft, metoprolol held. Lovenox. Qualifiers: Atrial fibrillation type: longstanding persistent Qualified Code(s): I48.11 - Longstanding persistent atrial fibrillation (9) Chronic anticoagulation: Previously on Eliquis, secondary to atrial fibrillation (10) Dyslipidemia: Chronically on statin Last lipid panel in 06/2020 showed total cholesterol of 180, LDL 111, HDL 25, TG 169 (11) Diabetes mellitus, type II: Continue Lantus, increase to 37 units. Sliding scale insulin. A1c 9.1 on 12/03/2021 Qualifiers: Diabetes mellitus complication status: with hyperglycemia Diabetes mellitus parts counterman insulin use: with parts counterman use Qualified Code(s): E11.65 - Type 2 diabetes mellitus with hyperglycemia; Z79.4 - care home (current) use of insulin (12) SHERLEY (obstructive sleep apnea): Has Bipap but inconsistent use, per recent Home Health Discharge, he will report compliance but an alondra has shown use only a couple of times in last month (13) BMI 50.0-59.9, adult: Plan Hypotension: On and off requiring low rate pressor with sedation. Today required sedation due to anxiety/agitation, with sedation blood pressure soft. Pressor as needed to maintain MAP. Lymphedema Chronically on duloxetine Chronically on vitamin C, multivitamin, vitamin D, vitamin B12 Recently discharged from home health services, last week Anticipate discharge either home plus or minus home health versus even potential need for placement pending on clinical course Attestations Medical Necessity Statement*: Continue admission for assessment of management of respiratory failure pneumonia, copious secretions, difficulty weaning of mechanical ventilation, soft blood pressures intermittently requiring pressor, sedation for anxiety, JAMES, CHF. Critical Care Time: The high probability of a clinically significant, sudden or life threatening deterioration of the patient's respiratory, hemodynamic system(s) required my full and direct attention, intervention and personal management. The critical care time is as shown. This time is in addition to time spent performing any reported procedures but includes the following: x Data and vital sign review and interpretation x Patient assessment, examination and intervention x Documentation x Medication orders and management Critical Care Time (min): 35 Coding Level of Care Code Acute Executive Administrative Assistant for [employer]ette Fwd Diagnoses Acute on chronic respiratory failure with hypoxia and hypercapnia J96.21; J96.22 Encephalopathy acute G93.40 CHF (congestive heart failure) I50.33 Heart failure type: diastolic Heart failure chronicity: acute on chronic COPD (chronic obstructive pulmonary disease) J44.1 COPD type: COPD with acute exacerbation Anemia D64.9 Anemia type: unspecified type CKD stage 2 due to type 2 diabetes mellitus E11.22; N18.2 Hypertension I10 Atrial fibrillation I48.11 Atrial fibrillation type: longstanding persistent Chronic anticoagulation Z79.01 Dyslipidemia E78.5 Diabetes mellitus, type II E11.65; Z79.4 Diabetes mellitus complication status: with hyperglycemia Diabetes mellitus parts counterman insulin use: with alf use SHERLEY (obstructive sleep apnea) G47.33 BMI 50.0-59.9, adult Z68.43
[2022-02-05] MEDS: atorvastatin 40 mg Tablet 80 MG PO (21:08)
[2022-02-05] MEDS: duloxetine 60 mg Capsule PO (21:08)
[2022-02-05] MEDS: artificial tears Op Oint 3.5 gm 1 APPLIC EYE-BOTH (21:13)
[2022-02-05 21:48] LABS: Glucose Point of Care 205 mg/dL (70-110)
[2022-02-06] VITALS (42 sets, daily range): BP systolic 90–123; BP diastolic 50–77; PULSE 64–109; RESP 16–17; TEMP 36.4–36.9; O2SAT 89–94; BMI 59.8
[2022-02-06] MEDS: chlorhexidine gluconate 4% Btl 118 mL 1 APPLIC TOPICAL ×6 (00:06→20:18)
[2022-02-06] MEDS: propofol 1,000 MG/100 ML INJ 38.1 MG IV ×3 (02:52→08:16)
[2022-02-06] MEDS: ipratropium-albuterol 3 mL Neb INHALATION ×4 (03:33→19:48)
[2022-02-06 04:33] LABS: Basophils % 0.1 %; Hematocrit 29.1 % (42.0-52.0); Hemoglobin 8.6 g/dL (11.7-16.6); Lymphocytes % 9.1 %; Mean Corpuscular HGB Conc 29.6 g/dL (30.0-36.0); Mean Corpuscular Hemoglobin 29.8 pg (28.0-34.0); Mean Corpuscular Volume 100.7 fl (80-94); Mean Platelet Volume 11.4 fL (7.4-10.4); Monocytes # 0.8 10^3/uL (0.2-0.9); Monocytes % 7.1 %; Neutrophils # 9.08 10^3/uL (1.8-7.7); Neutrophils % 82.7 %; Nucleated Red Blood Cells % 0 %; Platelet Count 215 10^3/cmm (130-400); Red Blood Count 2.89 10^6/uL (4.1-5.3)
[2022-02-06 04:55] LABS: Alanine Aminotransferase 22 U/L (0-41); Albumin Level 2.9 g/dL (3.5-5.2); Alkaline Phosphatase 73 U/L (40-130); Aspartate Amino Transferase 36 U/L (0-40); Blood Urea Nitrogen 57 mg/dL (8-23); Calcium 8.4 mg/dL (8.5-10.5); Carbon Dioxide 39 mmol/L (22-29); Chloride 92 mmol/L (98-107); Globulin 2.9 g/dL (1.3-4.6); Glucose 189 mg/dL (65-115); Osmolality Calculated 311 mOsm/kg (285-295); Sodium 140 mmol/L (136-145); Total Bilirubin 0.2 mg/dL (0.15-1.2); Total Protein 5.8 g/dL (6.6-8.7)
[2022-02-06 04:58] LABS: Vancomycin Trough 15.2 ug/mL (10-15)
[2022-02-06 04:59] LABS: Creatinine Clr Calc Pharmacy 83.3045
[2022-02-06] MEDS: meropenem 1,000 MG in sodium chloride 0.9% (plus) 50 ML 100 MG IV ×3 (05:11→22:51)
[2022-02-06] MEDS: vancomycin 1,000 MG in sodium chloride 0.9% 250 ML 250 MG IV (06:04)
[2022-02-06] MEDS: sodium chloride 3.5% neb 4 mL Neb INHALATION ×2 (08:05→19:48)
[2022-02-06] MEDS: budesonide 0.5 mg/2 mL Neb INHALATION ×2 (08:06→19:48)
[2022-02-06] MEDS: pantoprazole 40 mg SDV IVP ×2 (08:35→20:01)
[2022-02-06 08:49] LABS: Glucose Point of Care 201 mg/dL (70-110)
[2022-02-06] MEDS: docusate sodium 10 mg/mL (5ml) Liq 100 MG PO ×2 (08:52→20:05)
[2022-02-06] MEDS: insulin glargine 100 units/1 mL 37 UNIT SUBCUT ×2 (08:53→20:07)
[2022-02-06] MEDS: guaiFENesin 600 mg Tablet 1200 MG PO ×2 (08:53→17:45)
[2022-02-06] MEDS: enoxaparin 150 mg/mL Syringe SUBCUT ×2 (08:53→20:04)
[2022-02-06] MEDS: nystatin powder 15 gm Btl 1 APPLIC TOPICAL ×2 (08:54→17:53)
[2022-02-06] MEDS: insulin lispro 100 unit/1 mL SUBCUT ×3 (09:01→17:45)
--- NOTE | 2022-02-06 09:01 | PC.NUTR ---
MD consult for tube feeding received. Recommend Glucerna 1.2 beginning at 15 mls/hr and increasing 10 mls Q8H as tolerated until a goal rate of 45 mls/hr is reached with flushes of 150 mls Q4H. Details in RD assessment.
--- NOTE | 2022-02-06 10:00 | XRR_ITS ---
PROCEDURE INFORMATION: Exam: XR Chest Exam date and time: 02/06/2022 10:22 AM Age: 61 years old Clinical indication: Condition or disease; Lung condition and disease; Respiratory distress; Patient HX: Actue resp distress syndrome. Unable to give history; Additional info: Ards TECHNIQUE: Imaging protocol: Radiologic exam of the chest. Views: 1 view. COMPARISON: CT chest con [id number] 02/03/2022 12:36 PM FINDINGS: Tubes, catheters and devices: An endotracheal tube is present with the tip 4.6 cm above the paco. A nasogastric tube extends down to the stomach. The tip of a left arm PICC projects on the SVC. Lungs: Left base is opacified consistent with basilar consolidation/atelectasis with left pleural effusion. There is hazy atelectasis in the right base. Pleural spaces: No pneumothorax. Heart/Mediastinum: Unremarkable. No cardiomegaly. Bones/joints: Unremarkable. XR/XR chest 1V portable [id number] IMPRESSION: Opacification of the left base consistent with basilar consolidation and pleural effusion. When compared to the previous examination the aeration of the left mid and upper lung zones has improved.
--- NOTE | 2022-02-06 10:02 | USCV_ITS ---
Wayne Nicholson Age: 61 Gender: M : 1960 Exam Date: 02/06/2022 13:06 Ordering Phys: Perez Mcknight MD Technologist: Exam Location: [facility] [place] Indication: chf BP: 97 / 56 HR: 74 Rhythm: Sinus Technical Quality: Adequate MEASUREMENTS (Male / Female) Normal Values 2D ECHO LV Diastolic Diameter PLAX 4.8 cm 4.2 - 5.9 / 3.9 - 5.3 cm LV Systolic Diameter PLAX 3.5 cm IVS Diastolic Thickness 1.4 cm 0.6 - 1.0 / 0.6 - 0.9 cm IVS Systolic Thickness 2.2 cm LVPW Diastolic Thickness 1.4 cm 0.6 - 1.0 / 0.6 - 0.9 cm LVPW Systolic Thickness 2.1 cm LVOT Diameter 2.1 cm LV Ejection Fraction 2D Teich 39.3 % LV Ejection Fraction MOD 2C 67.0 % LV Ejection Fraction 2C AL 66.9 % LA Diameter 4.6 cm M-MODE Aortic Annulus Diameter 3.3 cm LA Ao Ratio MM 1.5 MV E Point Septal Separation 1.2 cm DOPPLER AV Peak Velocity 118.0 cm/s LVOT Peak Velocity 91.0 cm/s AV Area Cont Eq vti 2.6 cm squared AV Area Cont Eq pk 2.8 cm squared MV Area PHT 2.5 cm squared Mitral E to A Ratio 2.0 MV E' Velocity 46.0 cm/s Mitral E to MV E' Ratio 8.7 Mitral E to LV E' Lateral Ratio 7.9 Mitral E to LV E' Septal Ratio 9.7 TR Peak Velocity 200.7 cm/s TR Peak Gradient 16.1 mmHg TV Peak E Velocity 73.0 cm/s Right Atrial Pressure 3.0 mmHg Pulmonary Artery Systolic Pressu 19.1 mmHg PV Peak Velocity 59.0 cm/s RV Acceleration Time 0.1 s FINDINGS Left Ventricle Normal left ventricular cavity size. Normal left ventricular systolic function. Left ventricular ejection fraction is estimated at 55-60 %. No regional wall motion abnormalities. Rhythm precludes evaluation of diastolic function. Right Ventricle Probably normal right ventricular size and low normal systolic function. Right ventricular systolic pressure 25 mmHg. Right Atrium Right atrium not well visualized. Left Atrium Normal left atrial size. Mitral Valve Structurally normal mitral valve. Aortic Valve Aortic valve not well visualized. No aortic valve stenosis. Tricuspid Valve Trace tricuspid valve regurgitation. Pulmonic Valve Pulmonic valve not well visualized. Pericardium No pericardial effusion. Aorta Normal size aortic root and proximal ascending aorta. IVC Inferior vena cava not visualized. CONCLUSIONS 1. This is a technically difficult study. Optison was used per protocol. 2. Normal left ventricular cavity size and systolic function. Left ventricular ejection fraction is estimated at 55-60 %. No regional wall motion abnormalities. 3. Direct comparison to previous study dated 12/31/2017, is not possible due to technically difficult study. Marilyn Lo MD (Electronically Signed) Final Date: 06 February 2022 16:52 S
--- NOTE | 2022-02-06 10:39 | PC.CHAP ---
Pastoral Care Encounter/Spiritual Assessment Type of Contact [] Declined prototype engineer manager visit [] Patient/Family/Request visit [] Outpatient visit [] Follow-up visit [] Physician referral [] Code/Alert [x] Routine visit [] Staff referral [] Actively dying [x] Patient sleeping [x] Family support [] [] Out of room [] Palliative care [] [] Receiving care in room [] Pre-surgical visit [] Trauma [] Long length of stay [x] ICU visit [x] Other: vent Relational/Emotional Strength [] Patient feels connected with others/family/visitors/staff [] Distress [] Loneliness/isolation [] Abandonment Spirituality of Patient [] Person of Ruchi [] Attends Anabaptist of their Ruchi [] Believes in Prayer [] Reads Bible or Bahai materials [] There are Spiritual issues to be addressed Carbon 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 [x] Prayer [] Active listening [] Non-anxious presence [] Spiritual/emotional support [] Crisis/trauma care [] Spiritual counseling [] Bereavement support [] Provided bereavement packet [] Provided Bible/devotional materials [] Provided toy/stuffed animal, coloring book to patient or family member [] Provided Communion [] Anointing/[place] [] Salvation [x] Completed spiritual assessment [] Other: Impact on Illness or Injury [] Angry [] Fearful [] Anxious [] Often cries [] Exhaustion [] Unable to work [] Unable to attend congregation [] Unable to walk/stand [] Unable to read [] Unable to drive [] Unable to eat/drink [] Unable to sleep [] Unable to be with family [] Patient intubated [] Other: Summary Time spent with patient
[2022-02-06] MEDS: metoprolol tartrate 25 mg Tablet PO ×2 (10:47→20:01)
[2022-02-06] MEDS: propofol 1,000 MG/100 ML INJ 43.55 MG IV ×4 (11:00→23:20)
[2022-02-06 11:28] LABS: Procalcitonin 0.15 ng/mL (0-0.5); Thyroid Stimulating Hormone 0.62 uIU/mL (0.27-4.20)
--- NOTE | 2022-02-06 12:16 | PC.SOCIAL ---
IMM Update pg 2 of IMM not updated. Patient remains intubated and is not anticipated to DC in the next 24-48 hours.
[2022-02-06 12:19] LABS: Glucose Point of Care 194 mg/dL (70-110)
[2022-02-06] MEDS: perflutren protein-a microsphr 0.22 mg/mL SDV 3 mL IV (13:41)
--- NOTE | 2022-02-06 15:48 | P.PN_ITS ---
Subjective Subjective: Hospital course, labs appreciated. Today morning seen with family at bedside. Currently patient is on amiodarone drip of 0.5, propofol and fentanyl. Ventilator setting with FiO2 40%, PEEP of 14, tidal volume of 450. Heart rate running more than 100 with occasionally going up to 140s. Patient is sedated but arousable. Urine output appropriate. Has remained afebrile. Vitals/I&O/Wt Last Vital Signs Temp 98.4 F 02/06/22 12:00 Pulse 77 02/06/22 14:22 Resp 16 02/06/22 15:15 BP 118/71 02/06/22 14:00 Pulse Ox 94 02/06/22 15:15 O2 Del Method 02/06/22 14:10 O2 Flow Rate 60 02/02/22 21:45 FiO2 40 02/06/22 15:15 02/06/22 02/06/22 02/06/22 06:59 14:59 22:59 Intake Total 600 / 2299.12 470 / 470 Balance 600 / 849.12 470 / 470 Weight last 48 hrs Weight 194.636 kg Weight 194.636 kg Physical Exam Narrative: Sister andfianc? at bedside. Const: GENERAL APPEARANCE: patient mechanically ventilated NUTRITIONAL APPEARANCE: obese morbidly obese Neck/C-Spine: OTHER: Thick LIJ CVC Resp: AUSCULTATION: rhonchi and diminished lung sounds on the left Cardio: COMMON NORMALS: regular rhythm, S1 normal heart sound present, S2 normal heart sound present and No murmurs present (Cardio) RATE: tachycardic RHYTHM: regular rhythm HEART SOUNDS: S1 normal heart sound present and S2 normal heart sound present GI: COMMON NORMALS: Normal to inspection, nondistended, normoactive bowel sounds present and Soft to palpation PALPATION: Yes Soft to palpation OTHER: Large pannus Extremity: COMMON NORMALS: no joint enlargement GENERAL: Yes edema (trace, difficult to assess) Skin: OTHER: BL chronic stasis changes Urinary Catheter Management: Lord: Cath Placed During This Visit: no Reason for Continuing Indwelling Catheter: Accurate Measurement of Urinary Output in Critically Ill Patients Data : 02/06/22 04:19 02/06/22 04:19 Micro: Microbiology 01/30/22 15:45 Gram Stain - Final Sputum - Endotracheal Tube Aspirate Sputum Culture - Preliminary Gram Negative Rods A&P Assessment and plan (1) Acute on chronic respiratory failure with hypoxia and hypercapnia: Secondary to a combination of mucous plugging causing whiteout of left lung secondary to pneumonia, COPD exacerbation, obstructive sleep apnea. Post bronchoscopy and washout. Follow-up sputum cultures. MRSA negative. Continue with broad-spectrum coverage with vancomycin and meropenem for now. Repeat chest x-ray. Check echocardiogram. Aggressive pulmonary toilet with chest vest. DuoNebs every 4 hour, budesonide twice daily. Continue with acetylcysteine nebulization. Continue with Solu-Medrol 40 mg twice daily. We will plan to wean gradually within next 24 to 48 hours. Repeat chest x-ray in 24 hours. If patient does not need repeat bronchoscopy will plan for weaning trial. (2) Encephalopathy acute: Most likely secondary to hypoxia and hypercapnia. Cannot rule out encephalop athy secondary to pneumonia. Continue with home dose of duloxetine. Continue with sedation. We will plan for gradual weaning. (3) CHF (congestive heart failure): Acute on chronic. We will repeat echocardiogram. Hold off on diuresis for now. Patient overall more than 6 L negative. Qualifiers: Heart failure type: diastolic Heart failure chronicity: acute on chronic Qualified Code(s): I50.33 - Acute on chronic diastolic (congestive) heart failure (4) COPD (chronic obstructive pulmonary disease): Chronically on oxygen generally at 4L bnc at rest but lately requiring 6L. Treatment as above. Qualifiers: COPD type: COPD with acute exacerbation Qualified Code(s): J44.1 - Chronic obstructive pulmonary disease with (acute) exacerbation (5) Anemia: Chronic macrocytic anemia with baseline hemoglobin around 10. Appreciate vitamin B12 folate levels. Check iron panel. Will start on oral iron supplementation accordingly. Monitor hemoglobin daily. So far stable. Qualifiers: Anemia type: unspecified type Qualified Code(s): D64.9 - Anemia, unspecified (6) CKD stage 2 due to type 2 diabetes mellitus: Baseline creatinine around 1.1. Currently trending down. 1.6 today. Monitor fluid status daily. Hold off on any further diuresis or IV fluids for now. Medical reconciliation done for nephrotoxic drugs. Monitor BMP daily. (7) Hypertension: Goal blood pressure less than 140/ 90 mmHg with mean over 65. Requiring Levophed on and off. Currently blood pressure is well controlled. Chronically takes Imdur 50 mg daily, lisinopril 5 mg daily, metoprolol 100 mg twice daily along with Lasix and spironolactone. Start on low-dose beta- rosie. (8) Atrial fibrillation: With RVR. Has been continued on amiodarone drip at 0.5 for last 4 days. Switch to amiodarone 200 mg twice daily. Start on low-dose beta-rosie with metoprolol 25 mg twice daily. Takes Eliquis 5 mg twice daily at home. Currently on Lovenox 150 mg twice daily. If hemoglobin remained stable for next any 4 hours we will switch back to home dose of Eliquis. Qualifiers: Atrial fibrillation type: longstanding persistent Qualified Code(s): I48.11 - Longstanding persistent atrial fibrillation (9) Chronic anticoagulation: Previously on Eliquis, secondary to atrial fibrillation (10) Dyslipidemia: Chronically on statin Last lipid panel in 06/2020 showed total cholesterol of 180, LDL 111, HDL 25, TG 169 (11) Diabetes mellitus, type II: Insulin sliding scale at 37 units. Sliding scale insulin 6 hourly.. A1c 9.1 on 12/03/2021 Qualifiers: Diabetes mellitus complication status: with hyperglycemia Diabetes mellitus manager long term care insulin use: with shelter use Qualified Code(s): E11.65 - Type 2 diabetes mellitus with hyperglycemia; Z79.4 - continuous churn buttermaker (current) use of insulin (12) SHERLEY (obstructive sleep apnea): Has Bipap but inconsistent use, per recent Home Health Discharge, he will report compliance but an alondra has shown use only a couple of times in last month (13) BMI 50.0-59.9, adult: Plan Lymphedema Chronically on duloxetine Chronically on vitamin C, multivitamin, vitamin D, vitamin B12 Recently discharged from home health services, last week Analgesia: Currently on propofol and fentanyl Glycemic control: Lantus 37 units, sliding scale every 6 hourly Nutrition: Pulmocare tube feeds running at 20 cc/h. Increase 10 cc every 4-6 hours with goal of 50 cc/h. Free water flushes to 50 every 6 hours. CODE STATUS: Full code. PUD prophylaxis: Protonix 40 mg twice daily DVT prophylaxis: Full dose Lovenox 130 mg twice daily will suffice for DVT prophylaxis. Discharge planning: Plan to discharge to SNF versus LTAC depending on clinical picture going forward. We will plan for physical therapy evaluation once patient is extubated. Continue with care at ICU level. Patient's care discussed in detail with patient's sister and fianc?/DPOA in detail. All the questions were answered. We discussed that patient remains critically sick. We discussed plan for now is to continue with mechanical ventilation repeat chest x-ray in 24 hours to see if further bronchoscopy and washout is needed. Not needed can plan for trial of extubation. We also discussed for now no plans for tracheostomy until patient fails at least 1 trial of extubation. We also discussed possibility of discharge to select versus SNF once patient is medically cleared depending on need of tracheostomy or feeding tube going forward. This documentation was created by [employer] maintenance of way clerk software. Every effort was made to ensure accuracy of maintenance of way clerk. Any obvious errors or omissions should be clarified with the author of the document. Attestations Medical Necessity Statement*: Requires further hospitalization for management of hypoxic and hypercapnic respiratory failure, mechanical ventilation secondary to mucous plugging of left lung from pneumonia in a patient with COPD exacerbation and obstructive sleep apnea Critical Care Time: The high probability of a clinically significant, sudden or life threatening deterioration of the patient's [pulmonary, cardiac, renal] system(s) required my full and direct attention, intervention and personal management. The critical care time is as shown. This time is in addition to time spent performing any reported procedures but includes the following: [x] Data and vital sign review and interpretation [x] Patient assessment, examination and intervention [x] Documentation [x] Medication orders and management Critical Care Time (min): 70 Coding Level of Care Code Acute Corrections Sergeant for [facility] Fwd Diagnoses Acute on chronic respiratory failure with hypoxia and hypercapnia J96.21; J96.22 Encephalopathy acute G93.40 CHF (congestive heart failure) I50.33 Heart failure type: diastolic Heart failure chronicity: acute on chronic COPD (chronic obstructive pulmonary disease) J44.1 COPD type: COPD with acute exacerbation Anemia D64.9 Anemia type: unspecified type CKD stage 2 due to type 2 diabetes mellitus E11.22; N18.2 Hypertension I10 Atrial fibrillation I48.11 Atrial fibrillation type: longstanding persistent Chronic anticoagulation Z79.01 Dyslipidemia E78.5 Diabetes mellitus, type II E11.65; Z79.4 Diabetes mellitus complication status: with hyperglycemia Diabetes mellitus manager long term care insulin use: with manager long term care use SHERLEY (obstructive sleep apnea) G47.33 BMI 50.0-59.9, adult Z68.43
--- NOTE | 2022-02-06 16:21 | PC.NURSE ---
1615 Increased tubefeeding from 30ml to 40ml. Residual was 15ml. Sister at bedside.
[2022-02-06 17:44] LABS: Glucose Point of Care 240 mg/dL (70-110)
[2022-02-06] MEDS: ferrous gluconate 324 mg Tablet PO (17:45)
[2022-02-06] MEDS: amiodarone 200 mg Tablet PO (17:45)
--- NOTE | 2022-02-06 18:18 | PC.NURSE ---
1800 NG residual <10ml.
[2022-02-06] MEDS: duloxetine 60 mg Capsule PO (20:01)
[2022-02-06] MEDS: atorvastatin 40 mg Tablet 80 MG PO (20:01)
[2022-02-07] VITALS (57 sets, daily range): BP systolic 88–145; BP diastolic 55–102; PULSE 69–124; RESP 10–31; TEMP 36.4–37.1; O2SAT 77–97; BMI 59.8
[2022-02-07] MEDS: insulin lispro 100 unit/1 mL SUBCUT ×3 (00:17→12:42)
[2022-02-07 00:19] LABS: Glucose Point of Care 191 mg/dL (70-110)
[2022-02-07] MEDS: propofol 1,000 MG/100 ML INJ 43.55 MG IV ×4 (01:31→07:41)
[2022-02-07] MEDS: chlorhexidine gluconate 4% Btl 118 mL 1 APPLIC TOPICAL ×6 (01:51→21:56)
[2022-02-07] MEDS: ipratropium-albuterol 3 mL Neb INHALATION ×5 (02:33→19:45)
--- NOTE | 2022-02-07 03:04 | XRR_ITS ---
PROCEDURE INFORMATION: Exam: XR Chest Exam date and time: 02/07/2022 3:23 AM Age: 61 years old Clinical indication: Device placement; Ng tube; Patient HX: Check S/P og placement. Patient intubated with central line in place. ; Additional info: Og tube placement TECHNIQUE: Imaging protocol: Radiologic exam of the chest. Views: 1 view. COMPARISON: CR XR chest 1V portable [id number] 02/06/2022 10:22 AM FINDINGS: Tubes, catheters and devices: Endotracheal tube is in good position. Left central venous catheter with tip overlying the superior vena cava. Orogastric tube in good position. Lungs: Unremarkable. No consolidation. Pleural spaces: Small left pleural effusion. Heart/Mediastinum: There is mild cardiomegaly. Bones/joints: Unremarkable. Soft tissues: Examination limited by body habitus. XR/XR chest 1V portable [id number] IMPRESSION: 1. Examination limited by body habitus. 2. Orogastric tube in good position. 3. Endotracheal tube is in good position. 4. Mild cardiomegaly. 5. Small left pleural effusion.
[2022-02-07 03:12] LABS: Basophils % 0.2 %; Eosinophils # 0.1 10^3/uL (0.0-0.8); Eosinophils % 0.5 %; Hematocrit 29.1 % (42.0-52.0); Hemoglobin 8.7 g/dL (11.7-16.6); Lymphocytes # 0.6 10^3/uL (0.8-4.8); Lymphocytes % 4.7 %; Mean Corpuscular HGB Conc 29.9 g/dL (30.0-36.0); Mean Corpuscular Hemoglobin 29.6 pg (28.0-34.0); Mean Platelet Volume 11.7 fL (7.4-10.4); Monocytes # 0.7 10^3/uL (0.2-0.9); Monocytes % 5.3 %; Neutrophils % 87.9 %; Nucleated Red Blood Cells % 0 %; Platelet Count 217 10^3/cmm (130-400); Red Blood Count 2.94 10^6/uL (4.1-5.3); White Blood Count 12.5 10^3/uL (4.0-10.0)
[2022-02-07 03:35] LABS: Alanine Aminotransferase 30 U/L (0-41); Alkaline Phosphatase 82 U/L (40-130); Anion Gap 11.2 (5-19); Aspartate Amino Transferase 49 U/L (0-40); Blood Urea Nitrogen 65 mg/dL (8-23); Calcium 8.3 mg/dL (8.5-10.5); Carbon Dioxide 39 mmol/L (22-29); Chloride 93 mmol/L (98-107); Cholesterol 205 mg/dL (0-200); Globulin 3.2 g/dL (1.3-4.6); Glucose 197 mg/dL (65-115); HDL Cholesterol 54 mg/dL (60-100); LDL Cholesterol Calculated 104 mg/dL (50-129); Osmolality Calculated 312 mOsm/kg (285-295); Potassium 4.2 mmol/L (3.5-5.1); Sodium 139 mmol/L (136-145); Total Bilirubin 0.3 mg/dL (0.15-1.2); Total Protein 6.2 g/dL (6.6-8.7); Triglycerides 237 mg/dL (0-150); VLDL Cholestrol Calculation 47 mg/dL (0-30)
--- NOTE | 2022-02-07 03:50 | PC.NURSE ---
Pt repositioned with the help of RT and another nurse. Nurse noted OG tube appeared to have become unsecured and possibl not inserted as far as originally placed. RT suctioned pt and stated fluid appeared to be tube-feed colored. Tube feed stopped. notified. CXR ordered.
[2022-02-07 04:01] LABS: Creatinine Clr Calc Pharmacy 78.4043
[2022-02-07] MEDS: vancomycin 1,000 MG in sodium chloride 0.9% 250 ML 250 MG IV (05:00)
[2022-02-07] MEDS: meropenem 1,000 MG in sodium chloride 0.9% (plus) 50 ML 100 MG IV ×3 (05:00→22:09)
[2022-02-07 05:50] LABS: Glucose Point of Care 187 mg/dL (70-110)
[2022-02-07] MEDS: sodium chloride 3.5% neb 4 mL Neb INHALATION (07:38)
[2022-02-07] MEDS: budesonide 0.5 mg/2 mL Neb INHALATION ×2 (07:38→19:45)
[2022-02-07 08:03] LABS: Glucose Point of Care 185 mg/dL (70-110)
[2022-02-07] MEDS: ferrous gluconate 324 mg Tablet PO ×2 (09:12→17:32)
[2022-02-07] MEDS: guaiFENesin 600 mg Tablet 1200 MG PO ×2 (09:12→17:31)
[2022-02-07] MEDS: metoprolol tartrate 25 mg Tablet PO ×2 (09:12→21:56)
[2022-02-07] MEDS: amiodarone 200 mg Tablet PO ×2 (09:12→17:32)
[2022-02-07] MEDS: docusate sodium 10 mg/mL (5ml) Liq 100 MG PO ×2 (09:13→21:56)
[2022-02-07] MEDS: pantoprazole 40 mg SDV IVP ×2 (09:20→19:11)
[2022-02-07] MEDS: insulin glargine 100 units/1 mL 37 UNIT SUBCUT (09:24)
[2022-02-07] MEDS: nystatin powder 15 gm Btl 1 APPLIC TOPICAL ×2 (09:39→17:32)
[2022-02-07] MEDS: propofol 1,000 MG/100 ML INJ 25 MG IV (09:55)
[2022-02-07] MEDS: enoxaparin 150 mg/mL Syringe SUBCUT ×2 (10:05→21:55)
--- NOTE | 2022-02-07 10:42 | PC.NURSE ---
Per Dr aiken, start weaning trial. NUrse starte reducing medications at 0930 and alerted RT to weaning.
--- NOTE | 2022-02-07 10:42 | PC.NURSE ---
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 Patient appears to understand education on weaning trial and shakes his head yes.
[2022-02-07 12:34] LABS: Glucose Point of Care 152 mg/dL (70-110)
[2022-02-07 13:16] LABS: ABG PH Result 7.42 (7.35-7.45); Alveolar-Arterial Oxygen Gradi 19.3 mmHg (5-10); Arterial Blood Gas Hematocrit 29.4 % (42-52); Blood Gas Allen Test Pos; Blood Gas Operator Identificat CAK; Blood Gas Sample Site Radial, left; Blood Gas Sample Type Arterial; Carboxyhemoglobin 1.4 %THgb (0.4-20.1); HCO3 ABG 40.6 mmol/L (22-26); HGB O2 Sat 89.1 % (95-100); Ionized Calcium Level - ABG 1.1 mmol/L (1.1-1.4); Methemoglobin 0.5 % (0.4-1.5); Oxygen Device VENT; Oxygen Saturation ABG 90.7; PO2 ABG 62.8 mmHg (80.0-100.0); Total Hemoglobin 9.6 g/dL (14-18)
[2022-02-07 13:19] LABS: ABG PCO2 63.1 mmHg (35-45)
--- NOTE | 2022-02-07 14:44 | PC.NURSE ---
Paitent has been extubated. Restraints no longer indicated. Restraints removed.
--- NOTE | 2022-02-07 16:22 | P.PN_ITS ---
Subjective Subjective: Patient seen multiple times during the day today. Patient was successfully extubated to BiPAP and then eventually transitioned over to high flow nasal cannula during the day today. Patient's saturation has been maintained over 90%. Patient has remained hemodynamically stable. Heart rate better since starting metoprolol and oral amiodarone. Urine output appropriate. Patient has remained calm without any episodes of combativeness. Vitals/I&O/Wt Last Vital Signs Temp 97.5 F L 02/07/22 13:00 Pulse 115 H 02/07/22 14:30 Resp 17 02/07/22 13:33 BP 130/89 02/07/22 14:30 Pulse Ox 93 02/07/22 14:30 O2 Del Method 02/07/22 14:30 O2 Flow Rate 60 02/02/22 21:45 FiO2 40 02/07/22 14:30 02/07/22 02/07/22 02/07/22 06:59 14:59 22:59 Intake Total 1009.375 / 3103.000 342.123 / 342.123 Output Total 900 / 1950 600 / 600 Balance 109.375 / 1153.000 -257.877 / -257.877 Weight last 48 hrs Weight 194.636 kg Weight 194.636 kg Physical Exam Narrative: No acute distress, morbidly obese Const: GENERAL APPEARANCE: cooperative, comfortable, well developed and lethargic NUTRITIONAL APPEARANCE: obese morbidly obese ORIENTATION/CONSCIOUSNESS: Yes lethargic Neck/C-Spine: OTHER: Thick LIJ CVC Resp: AUSCULTATION: rhonchi and diminished lung sounds on the left Cardio: COMMON NORMALS: S1 normal heart sound present, S2 normal heart sound present and No murmurs present (Cardio) HEART SOUNDS: S1 normal heart sound present and S2 normal heart sound present OTHER: Irregularly irregular with occasional tachycardia GI: COMMON NORMALS: Normal to inspection, nondistended, normoactive bowel sounds present and Soft to palpation PALPATION: Yes Soft to palpation OTHER: Large pannus Extremity: COMMON NORMALS: no joint enlargement GENERAL: Yes edema (trace, difficult to assess) Neuro: SENSORIUM/ORIENTATION: Yes lethargic Skin: OTHER: BL chronic stasis changes Urinary Catheter Management: Lord: Cath Placed During This Visit: no Reason for Continuing Indwelling Catheter: Accurate Measurement of Urinary Output in Critically Ill Patients Data : 02/07/22 02:47 02/07/22 02:47 A&P Assessment and plan (1) Acute on chronic respiratory failure with hypoxia and hypercapnia: Secondary to a combination of mucous plugging causing whiteout of left lung secondary to pneumonia, COPD exacerbation, obstructive sleep apnea. Post bronchoscopy and washout. Follow-up sputum cultures. MRSA negative. Stop vancomycin. Continue with meropenem. Repeat chest x-ray shows improvement in left lung opacity. Echocardiogram results appreciated. Normal EF of 55 to 60%, RVSP of 25 mmHg, difficult to assess diastolic function given atrial fibrillation. Aggressive pulmonary toilet with chest vest. Incentive spirometry. DuoNebs every 4 hour, budesonide twice daily. Continue with acetylcysteine nebulization. Continue with Solu-Medrol 40 mg twice daily. We will plan to wean gradually wit hin next 24 to 48 hours. Out of bed to chair. Speech therapy. Physical therapy. (2) Encephalopathy acute: Most likely secondary to hypoxia and hypercapnia. Cannot rule out encephalopathy secondary to pneumonia. Seems to be resolving. Continue with home dose of duloxetine. Continue with sedation. We will plan for gradual weaning. (3) CHF (congestive heart failure): Acute on chronic. Appreciate echocardiogram results as above. Hold off on diuresis for now. Patient overall more than 6 L negative. Qualifiers: Heart failure type: diastolic Heart failure chronicity: acute on chronic Qualified Code(s): I50.33 - Acute on chronic diastolic (congestive) heart failure (4) COPD (chronic obstructive pulmonary disease): Chronically on oxygen generally at 4L bnc at rest but lately requiring 6L. Treatment as above. Qualifiers: COPD type: COPD with acute exacerbation Qualified Code(s): J44.1 - Chronic obstructive pulmonary disease with (acute) exacerbation (5) Anemia: Chronic macrocytic anemia with baseline hemoglobin around 10. Appreciate vitamin B12 folate levels. Start on oral iron supplementation. Qualifiers: Anemia type: unspecified type Qualified Code(s): D64.9 - Anemia, unspecified (6) CKD stage 2 due to type 2 diabetes mellitus: Baseline creatinine around 1.1. Currently stable. Monitor fluid status daily. Hold off on any further diuresis or IV fluids for now. Medical reconciliation done for nephrotoxic drugs. Monitor BMP daily. (7) Hypertension: Goal blood pressure less than 140/ 90 mmHg with mean over 65. Requiring Levophed on and off. Currently blood pressure is well controlled. Chronically takes Imdur 50 mg daily, lisinopril 5 mg daily, metoprolol 100 mg twice daily along with Lasix and spironolactone. Start on low-dose beta- rosie. (8) Atrial fibrillation: With RVR. Has been continued on amiodarone drip at 0.5 for last 4 days. Switch to amiodarone 200 mg twice daily. Start on low-dose beta-rosie with metoprolol 25 mg twice daily. Takes Eliquis 5 mg twice daily at home. Currently on Lovenox 150 mg twice daily. If hemoglobin remained stable for next any 4 hours we will switch back to home dose of Eliquis. Qualifiers: Atrial fibrillation type: longstanding persistent Qualified Code(s): I48.11 - Longstanding persistent atrial fibrillation (9) Chronic anticoagulation: Previously on Eliquis, secondary to atrial fibrillation (10) Dyslipidemia: Chronically on statin Last lipid panel in 06/2020 showed total cholesterol of 180, LDL 111, HDL 25, TG 169 (11) Diabetes mellitus, type II: Insulin sliding scale at 37 units. Sliding scale insulin 6 hourly.. A1c 9.1 on 12/03/2021 Qualifiers: Diabetes mellitus complication status: with hyperglycemia Diabetes mellitus longterm insulin use: with longterm use Qualified Code(s): E11.65 - Type 2 diabetes mellitus with hyperglycemia; Z79.4 - terminal gauger (current) use of insulin (12) SHERLEY (obstructive sleep apnea): Has Bipap but inconsistent use, per recent Home Health Discharge, he will report compliance but an alondra has shown use only a couple of times in last month (13) BMI 50.0-59.9, adult: Plan Lymphedema Chronically on duloxetine Chronically on vitamin C, multivitamin, vitamin D, vitamin B12 Recently discharged from home health services, last week Analgesia: Tylenol as needed Glycemic control: Lantus 37 units, sliding scale every 6 hourly Nutrition: Pulmocare tube feeds running at 20 cc/h. Increase 10 cc every 4-6 hours with goal of 50 cc/h. Free water flushes to 50 every 6 hours. CODE STATUS: Full code. PUD prophylaxis: Protonix 40 mg twice daily DVT prophylaxis: Full dose Lovenox 130 mg twice daily will suffice for DVT prophylaxis. Discharge planning: Plan to discharge to SNF versus LTAC depending on clinical picture going forward. We will plan for physical therapy evaluation once patient is extubated. Continue with care at ICU level. Patient's care discussed in detail with patient's sister and fimee?/DPOA in detail. All the questions were answered. We discussed that patient remains critically sick. We discussed plan for now is to continue with mechanical ventilation repeat chest x-ray in 24 hours to see if further bronchoscopy and washout is needed. Not needed can plan for trial of extubation. We also di scussed for now no plans for tracheostomy until patient fails at least 1 trial of extubation. We also discussed possibility of discharge to select versus SNF once patient is medically cleared depending on need of tracheostomy or feeding tube going forward. This documentation was created by [employer] rehab physician software. Every effort was made to ensure accuracy of rehab physician. Any obvious errors or omissions should be clarified with the author of the document. Attestations Medical Necessity Statement*: Requires further hospitalization for management of hypercapnic hypoxic respiratory failure secondary to COPD exacerbation, left lung whiteout, aspiration pneumonitis, mucous plugging in a patient with severe SHERLEY Time Spent in Patient Care: Greater than 35 minutes Coding Level of Care Code Acute Director [facility] for Chg Fwd History Comprehensive Exam Comprehensive Medical Decision Making High Complexity Diagnoses Acute on chronic respiratory failure with hypoxia and hypercapnia J96.21; J96.22 Encephalopathy acute G93.40 CHF (congestive heart failure) I50.33 Heart failure type: diastolic Heart failure chronicity: acute on chronic COPD (chronic obstructive pulmonary disease) J44.1 COPD type: COPD with acute exacerbation Anemia D64.9 Anemia type: unspecified type CKD stage 2 due to type 2 diabetes mellitus E11.22; N18.2 Hypertension I10 Atrial fibrillation I48.11 Atrial fibrillation type: longstanding persistent Chronic anticoagulation Z79.01 Dyslipidemia E78.5 Diabetes mellitus, type II E11.65; Z79.4 Diabetes mellitus complication status: with hyperglycemia Diabetes mellitus long term care phlebotomist insulin use: with longterm use SHERLEY (obstructive sleep apnea) G47.33 BMI 50.0-59.9, adult Z68.43
--- NOTE | 2022-02-07 17:36 | PM.PN ---
Subjective Subjective: -Seen patient at bedside today -Follows commands and ABG is acceptable for extubation -Chest x-ray has shown significant improvement in left lung aeration -He was successfully extubated to BiPAP-recommended to keep higher IPAP around 8-10 -Other labs and imaging reviewed Medications: Reviewed: Yes Vitals/I&O/Wt Last Vital Signs Temp 97.5 F L 02/07/22 13:00 Pulse 115 H 02/07/22 14:30 Resp 17 02/07/22 13:33 BP 130/89 02/07/22 14:30 Pulse Ox 93 02/07/22 14:30 O2 Del Method 02/07/22 14:30 O2 Flow Rate 60 02/02/22 21:45 FiO2 40 02/07/22 14:30 02/07/22 02/07/22 02/07/22 06:59 14:59 22:59 Intake Total 1009.375 / 3103.000 342.123 / 342.123 Output Total 900 / 1950 600 / 600 550 / 1150 Balance 109.375 / 1153.000 -257.877 / -257.877 -550 / -807.877 Weight last 48 hrs Weight 429 lb 1.6 oz Weight 429 lb 1.6 oz Physical Exam Narrative: PHYSICAL EXAM: General: lying in bed, sedated and intubated. HEENT:NCAT, PERRLA, EOMI Neck: Supple Lungs: Crackles predominantly on left side Heart: s1/s2, RRR Abd: Significantly obese abdomen, rash noted in creases, soft, NT, ND, BS + Normoactive Extremities: No edema SUPERINTENDENT MECHANICAL: sedated and limited SUPERINTENDENT MECHANICAL exam possible. SKIN: no rash LDA: # CVC: Left IJ Urinary Catheter Management: Lord: Cath Placed During This Visit: no Reason for Continuing Indwelling Catheter: Accurate Measurement of Urinary Output in Critically Ill Patients Data : 02/07/22 02:47 02/07/22 02:47 Other Labs: Radiology Impressions Chest CT 02/03/22 15:49 IMPRESSION: 1. Complete collapse LEFT lower lobe and partial collapse LEFT upper lobe with volume loss in the LEFT thorax. 2. Partial atelectasis RIGHT lower lobe with a small effusion. 3. Very small LEFT pleural effusion. 4. Cardiomegaly. 5. Endotracheal tube and nasogastric tubes are in good position. Chest X-Ray 02/07/22 03:04 IMPRESSION: 1. Examination limited by body habitus. 2. Orogastric tube in good position. 3. Endotracheal tube is in good position. 4. Mild cardiomegaly. 5. Small left pleural effusion. Laboratory Results WBC 12.5 10^3/uL (4.0-10.0) H 02/07/22 02:47 RBC 2.94 10^6/uL (4.1-5.3) L 02/07/22 02:47 Hgb 8.7 g/dL (11.7-16.6) L 02/07/22 02:47 Hct 29.1 % (42.0-52.0) L 02/07/22 02:47 MCV 99.0 fl (80-94) H 02/07/22 02:47 MCH 29.6 pg (28.0-34.0) 02/07/22 02:47 MCHC 29.9 g/dL (30.0-36.0) L 02/07/22 02:47 RDW 15.0 % (12.1-15.1) 02/07/22 02:47 Plt Count 217 10^3/cmm (130-400) 02/07/22 02:47 MPV 11.7 fL (7.4-10.4) H 02/07/22 02:47 Neut % (Auto) 87.9 % 02/07/22 02:47 Lymph % (Auto) 4.7 % 02/07/22 02:47 [place] % (Auto) 5.3 % 02/07/22 02:47 Eos % (Auto) 0.5 % 02/07/22 02:47 Baso % (Auto) 0.2 % 02/07/22 02:47 Neut # (Auto) 11.00 10^3/uL (1.8-7.7) H 02/07/22 02:47 Lymph # (Auto) 0.6 10^3/uL (0.8-4.8) L 02/07/22 02:47 [place] # (Auto) 0.7 10^3/uL (0.2-0.9) 02/07/22 02:47 Eos # (Auto) 0.1 10^3/uL (0.0-0.8) 02/07/22 02:47 Baso # (Auto) 0.0 10^3/uL (0.0-0.1) 02/07/22 02:47 Nucleated RBC % (auto) 0 % 02/07/22 02:47 Nucleated RBCs # 0.0 /100WBC 02/07/22 02:47 PT 17.20 SECONDS (12.1-14.9) H 01/31/22 03:40 INR 1.37 (0.8-1.2) H 01/31/22 03:40 APTT 41.4 SECONDS (23.9-36.7) H 01/31/22 03:40 Specimen Type Arterial 02/07/22 13:05 Sample Site Radial, left 02/07/22 13:05 ABG pH 7.42 (7.35-7.45) 02/07/22 13:05 ABG pCO2 63.1 mmHg (35-45) H* 02/07/22 13:05 ABG pO2 62.8 mmHg (80.0-100.0) L 02/07/22 13:05 ABG HCO3 40.6 mmol/L (22-26) H 02/07/22 13:05 ABG O2 Saturation 90.7 02/07/22 13:05 ABG Base Excess 14.0 mmol/L (-2.0-2.0) H 02/07/22 13:05 Jax Test Pos 02/07/22 13:05 A-a O2 Gradient 19.3 mmHg (5-10) H 02/07/22 13:05 Hematocrit 29.4 % (42-52) L 02/07/22 13:05 Hgb O2 Saturation 89.1 % (95-100) L 02/07/22 13:05 Carboxyhemoglobin 1.4 %THgb (0.4-20.1) 02/07/22 13:05 Methemoglobin 0.5 % (0.4-1.5) 02/07/22 13:05 Total Hemoglobin 9.6 g/dL (14-18) L 02/07/22 13:05 Sodium 142.0 mmol/L (131-143) 02/07/22 13:05 Potassium 4.0 mmol/L (3.5-5.0) 02/07/22 13:05 Glucose 144.0 mg/dL (70-115) H 02/07/22 13:05 Ionized Calcium 1.1 mmol/L (1.1-1.4) 02/07/22 13:05 O2 Delivery Device Vent 02/07/22 13:05 O2 Liters/Min 4.0 % 01/30/22 12:06 FiO2 40.0 % 02/07/22 13:05 Tidal Volume 0.45 02/03/22 05:53 PEEP 8.0 cmH20 02/07/22 13:05 Railroad Car Painter ID Cak 02/07/22 13:05 Sodium 139 mmol/L (136-145) 02/07/22 02:47 Potassium 4.2 mmol/L (3.5-5.1) 02/07/22 02:47 Chloride 93 mmol/L (98-107) L 02/07/22 02:47 Carbon Dioxide 39 mmol/L (22-29) H 02/07/22 02:47 Anion Gap 11.2 (5-19) 02/07/22 02:47 BUN 65 mg/dL (8-23) H 02/07/22 02:47 Creatinine 1.7 mg/dL (0.7-1.2) H 02/07/22 02:47 GFR Calculation 41.0 mL/min (90-130) L 02/07/22 02:47 Glucose 197 mg/dL (65-115) H 02/07/22 02:47 POC Glucose 110 mg/dL (70-110) 02/07/22 17:35 Calculated Osmolality 312 mOsm/kg (285-295) H 02/07/22 02:47 Lactic Acid 0.9 mmol/L (0.5-2.2) 01/30/22 17:10 Uric Acid 7.3 mg/dL (3.4-7.0) H 01/31/22 03:40 Calcium 8.3 mg/dL (8.5-10.5) L 02/07/22 02:47 Phosphorus 3.1 mg/dL (2.5-4.5) 01/31/22 03:40 Magnesium 2.1 mg/dL (1.7-2.3) 01/31/22 03:40 Iron 17 ug/dL (59-158) L 01/31/22 03:40 TIBC 191 mcg/dl 01/31/22 03:40 % Saturation 8.9 % (20-50) L 01/31/22 03:40 Unsat Iron Binding 174 ug/dL (112-347) 01/31/22 03:40 Total Bilirubin 0.3 mg/dL (0.15-1.2) 02/07/22 02:47 AST 49 U/L (0-40) H 02/07/22 02:47 ALT 30 U/L (0-41) 02/07/22 02:47 Alkaline Phosphatase 82 U/L (40-130) 02/07/22 02:47 Creatine Kinase 71 U/L (39-308) 01/30/22 12:03 Troponin T Baseline 35 ng/L (0-15) H 01/30/22 12:03 Troponin T 120 Minute 34.86 ng/L (0-15) H 01/30/22 14:05 Delta Troponin T -0.14 ABS# (0-10) L 01/30/22 14:05 Troponin T Hi Sens 6Hr 32.80 ng/L (0-15) H 01/30/22 17:59 Troponin T Hi Sens 6Hr Delta -2.20 ng/L (0-12) L 01/30/22 17:59 NT-Pro-B Natriuret Pep 2048 pg/mL (0-125) H 01/30/22 12:03 Total Protein 6.2 g/dL (6.6-8.7) L 02/07/22 02:47 Albumin 3.0 g/dL (3.5-5.2) L 02/07/22 02:47 Globulin 3.2 g/dL (1.3-4.6) 02/07/22 02:47 Triglycerides 237 mg/dL (0-150) H 02/07/22 02:47 Cholesterol 205 mg/dL (0-200) H 02/07/22 02:47 LDL Cholesterol, Calc 104 mg/dL (50-129) 02/07/22 02:47 Total VLDL Cholesterol 47 mg/dL (0-30) H 02/07/22 02:47 HDL Cholesterol 54 mg/dL (60-100) L 02/07/22 02:47 Cholesterol/HDL Ratio 3.80 mg/dL (1.0-5.00) 02/07/22 02:47 Vitamin B12 1289 pg/mL (232-1245) H 01/31/22 03:40 Folate 18.2 ng/mL (4.5-32.2) 01/31/22 03:40 Procalcitonin 0.15 ng/mL (0-0.5) 02/06/22 04:19 TSH 0.62 uIU/mL (0.27-4.20) 02/06/22 04:19 TSH Cancelled 02/06/22 04:19 Urine Color Straw (Yellow) 01/30/22 12:49 Urine Appearance Clear (CLEAR) 01/30/22 12:49 Urine pH 5 (5-7) 01/30/22 12:49 Ur Specific [place] 1.010 (1.005-1.030) 01/30/22 12:49 Urine Protein Neg (Negative) 01/30/22 12:49 Urine Glucose (UA) Norm (Normal) 01/30/22 12:49 Urine Ketones Negative (Negative) 01/30/22 12:49 Urine Blood Neg (Negative) 01/30/22 12:49 Urine Nitrate Negative (Negative) 01/30/22 12:49 Urine Bilirubin Neg (Negative) 01/30/22 12:49 Urine Urobilinogen Norm mg/dL (Negative) 01/30/22 12:49 Ur Leukocyte Esterase Negative (Negative) 01/30/22 12:49 Vancomycin Trough 15.2 ug/mL (10-15) H 02/06/22 04:19 Random Vancomycin 16.4 ug/mL (20.0-40.0) L 02/05/22 03:19 Coronavirus 229E (PCR) Not detected (NOT DETECT) 01/30/22 17:09 SARS-CoV-2 (PCR) Not detected (NOT DETECT) 01/30/22 17:09 A&P Assessment and plan (1) Acute on chronic respiratory failure with hypoxia and hypercapnia: (2) SHERLEY (obstructive sleep apnea): (3) CHF (congestive heart failure): Qualifiers: Heart failure type: diastolic Heart failure chronicity: acute on chronic Qualified Code(s): I50.33 - Acute on chronic diastolic (congestive) heart failure (4) CKD stage 2 due to type 2 diabetes mellitus: (5) Atrial fibrillation: Qualifiers: Atrial fibrillation type: longstanding persistent Qualified Code(s): I48.11 - Longstanding persistent atrial fibrillation (6) Diabetes mellitus, type II: Qualifiers: Diabetes mellitus complication status: with hyperglycemia Diabetes mellitus filler leaf cutter long insulin use: with filler leaf cutter long use Qualified Code(s): E11.65 - Type 2 diabetes mellitus with hyperglycemia; Z79.4 - buttermaker continuous churn (current) use of insulin (7) Chronic anticoagulation: (8) COPD (chronic obstructive pulmonary disease): Qualifiers: COPD type: COPD with acute exacerbation Qualified Code(s): J44.1 - Chronic obstructive pulmonary disease with (acute) exacerbation (9) On home oxygen therapy: (10) Difficulty with BiPAP use: (11) Mucus plugging of bronchi: (12) Aspiration pneumonia: (13) BMI 50.0-59.9, adult: Plan #Acute on chronic hypercapnic respiratory failure in patient with underlying grade 3 diastolic heart failure, COPD, obstructive sleep apnea, obesity hypoventilation-noncompliant with home BiPAP-complicated by aspiration and plugging of left tracheobronchial tree and adhesive atelectasis -Intubated during admission- -Underwent BAL/aspiration of mucous plugs on 01/31/2022 and 02/02/2022 -Today again so worsening chest x-ray with left mediastinal shift-suspicious for mucous plugging of airways-underwent bronchoscopy twice-aspirated visible secretions-however postprocedure chest x-ray did not improve much for 2 days suspicious for adhesive atelectasis -Recommended to increase PEEP to 12 and continue hypertonic saline/Mucomyst nebulization every 12 hours and chest physiotherapy 3 times a day -Today chest x-ray looks much improved, ABG acceptable, patient following commands-Taper down sedation and extubated to BiPAP successfully; due to his noncompliance with BiPAP-he is at high risk for reintubation -Continue DuoNeb nebulization and currently on methylprednisone 40 Mg twice daily-we can taper down to daily once -Currently patient on vancomycin and imipenem-later changed to meropenem-on antibiotics for 8 days -Sputum cultures 01/30/[id number] rods-identification pending, urine Legionella antigen and bacterial antigens are negative -We will switch antibiotics according to sensitivity and complete 14 days #Admitted with AMS-likely secondary to CO2 narcosis due to noncompliant with BiPAP-mentation improved with ventilation -Following commands and no focal deficits #Diastolic CHF #EKG showed atrial fibrillation with RVR -Grade 3/4 diastolic CHF on previous echo 2018 -Initially patient received Lasix 60 Mg IVP-good urine output and net -7 L-we will hold Lasix -Echocardiogram 02/06/2022-technically difficult study, normal LV cavity size and systolic function with EF 55 to 60% -Patient on amiodarone 200 Mg p.o. twice daily and Lovenox -We will continue to monitor electrolytes, renal functions #JAMES-likely secondary to sepsis/prerenal -Requiring intermittent Levophed to maintain MAP greater than 65 -Creatinine and BUN stabilized -Monitor input output, renal parameters -Hold Lasix #Moderately controlled sugars probably secondary to steroids -Currently on Lantus 37 bid and on scale coverage -Monitor sugars ICU CHECKLIST: Problem list updated Verbal orders reviewed and signed Analgesia: None Glycemic Control: Insulin Nutrition: Patient at bedside swallow evaluation and can start soft feeding Restraint Renewal (within 24 hrs): None Ulcer Prophylaxis: PPI Chemical Thromboprophylaxis: Lovenox Mechanical Thromboprophylaxis: SCDs Need for Central line: For pressors Need for Lord catheter: For close urine output monitoring Critical Care Time (No Overlap): 65 min This patient has a high probability of sudden, clinically significant deterioration, which requires the highest level of physician preparedness to intervene urgently. I managed/supervised life or organ supporting interventions that required frequent physician assessment. I devoted my full attention in the ICU to the direct care of this patient for the period of time indicated above. Time I spent with family or surrogate(s) is included only if the patient was incapable of providing necessary information or participating in decision making. Time devoted to teaching and to any procedures I billed separately is not included. Services Provided: Telemetry review Mechanical Ventilation Hemodynamic interpretation, assessment and management Review and interpretation of CXR Review and interpretation of lab values Review and interpretation of microbiologic data and culture results Review of medications and administration Review and interpretation of Nutrition requirements and management Discussion of management with other consultants and services Clinical update to family members Attestations Medical Necessity Statement*: Patient is extubated today-we will have to monitor for next 24 to 48 hours given his high risk for reintubation Time Spent in Patient Care: Greater than 35 minutes (>than 50% of time spent in counselling and/or direct pt care on unit). Critical Care Time: The high probability of a clinically significant, sudden or life threatening deterioration of the patient's [neurological, pulmonary, cardiac, renal, endocrine, infectious] system(s) required my full and direct attention, intervention and personal management. The critical care time is as shown. This time is in addition to time spent performing any reported procedures but includes the following: [x] Data and vital sign review and interpretation [x] Patient assessment, examination and intervention [x] Documentation [x] Medication orders and management Critical Care Time (min): 55 Coding Level of Care Code Established Pt Acute Biological Chemist for Chg Fwd Patient Type Established History Comprehensive Exam Comprehensive Medical Decision Making High Complexity Diagnoses Acute on chronic respiratory failure with hypoxia and hypercapnia J96.21; J96.22 SHERLEY (obstructive sleep apnea) G47.33 CHF (congestive heart failure) I50.33 Heart failure type: diastolic Heart failure chronicity: acute on chronic CKD stage 2 due to type 2 diabetes mellitus E11.22; N18.2 Atrial fibrillation I48.11 Atrial fibrillation type: longstanding persistent Diabetes mellitus, type II E11.65; Z79.4 Diabetes mellitus complication status: with hyperglycemia Diabetes mellitus filler leaf cutter long insulin use: with filler leaf cutter long use Chronic anticoagulation Z79.01 COPD (chronic obstructive pulmonary disease) J44.1 COPD type: COPD with acute exacerbation On home oxygen therapy Z99.81 Difficulty with BiPAP use Z78.9 Mucus plugging of bronchi T17.500A Aspiration pneumonia J69.0 BMI 50.0-59.9, adult Z68.43 Time Spent (min) 65
--- NOTE | 2022-02-07 17:45 | ECG_ITS ---
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 Measurements Intervals [place] Rate: 107 P: [place]: QRS: 56 QRSD: 121 T: 8 QT: 334 QTc: 447 Interpretive Statements ATRIAL FIBRILLATION WITH RAPID VENTRICULAR RESPONSE POSSIBLE RIGHT VENTRICULAR CONDUCTION DELAY [RSR (QR) IN V1/V2] ABNORMAL RHYTHM ECG Compared to ECG 02/03/2022 08:35:10 Incomplete right bundle-branch block no longer present ST (T wave) deviation no longer present Electronically Signed On 02-08-2022 5:51:01 CDT by Marilyn Lo M.D. [email or web address]
--- NOTE | 2022-02-07 18:08 | PC.NURSE ---
At 1750, patient reports a feeling that he feels like something is wrong and he is choking. Physical assessment shows no changes. NUrse alerted Dr aiken and received orders to do an EKG. EKG shows afib. Patient's oxygen requirements have now went up form 5L NC to 8L NC. NUrse alerted Dr aiken to EKG and oxygen requirement increase and received orders for a nebulizer treatment. Nurser alerted Nathan in [place].
[2022-02-07 18:10] LABS: Glucose Point of Care 110 mg/dL (70-110)
[2022-02-07 19:51] LABS: Glucose Point of Care 92 mg/dL (70-110)
[2022-02-07] MEDS: atorvastatin 40 mg Tablet 80 MG PO (21:55)
[2022-02-07] MEDS: duloxetine 60 mg Capsule PO (21:55)
[2022-02-08] VITALS (36 sets, daily range): BP systolic 112–162; BP diastolic 64–102; PULSE 73–102; RESP 15–28; TEMP 36.6–37.1; O2SAT 78–98
[2022-02-08] MEDS: chlorhexidine gluconate 4% Btl 118 mL 1 APPLIC TOPICAL ×3 (01:36→20:13)
[2022-02-08 01:46] LABS: Glucose Point of Care 112 mg/dL (70-110)
[2022-02-08] MEDS: ipratropium-albuterol 3 mL Neb INHALATION ×4 (02:54→20:09)
[2022-02-08 05:01] LABS: Basophils % 0.2 %; Eosinophils # 0.1 10^3/uL (0.0-0.8); Eosinophils % 0.8 %; Hematocrit 30.3 % (42.0-52.0); Hemoglobin 9.1 g/dL (11.7-16.6); Lymphocytes # 1.3 10^3/uL (0.8-4.8); Lymphocytes % 9.9 %; Mean Corpuscular Hemoglobin 29.4 pg (28.0-34.0); Mean Corpuscular Volume 97.7 fl (80-94); Monocytes # 1.2 10^3/uL (0.2-0.9); Monocytes % 8.9 %; Neutrophils # 10.35 10^3/uL (1.8-7.7); Neutrophils % 79.1 %; Nucleated Red Blood Cells % 0 %; Platelet Count 245 10^3/cmm (130-400); Red Cell Distribution Width 15.3 % (12.1-15.1); White Blood Count 13.1 10^3/uL (4.0-10.0)
[2022-02-08 05:24] LABS: Alanine Aminotransferase 31 U/L (0-41); Albumin Level 3.1 g/dL (3.5-5.2); Alkaline Phosphatase 81 U/L (40-130); Aspartate Amino Transferase 39 U/L (0-40); Blood Urea Nitrogen 51 mg/dL (8-23); Calcium 8.6 mg/dL (8.5-10.5); Carbon Dioxide 38 mmol/L (22-29); Chloride 97 mmol/L (98-107); Globulin 3.2 g/dL (1.3-4.6); Glomerular Filtration Rate 51.4 mL/min (90-130); Glucose 103 mg/dL (65-115); Osmolality Calculated 310 mOsm/kg (285-295); Sodium 143 mmol/L (136-145); Total Bilirubin 0.3 mg/dL (0.15-1.2); Total Protein 6.3 g/dL (6.6-8.7)
[2022-02-08 05:55] LABS: Glucose Point of Care 105 mg/dL (70-110)
[2022-02-08] MEDS: meropenem 1,000 MG in sodium chloride 0.9% (plus) 50 ML 100 MG IV (05:58)
[2022-02-08] MEDS: budesonide 0.5 mg/2 mL Neb INHALATION ×2 (07:41→20:09)
[2022-02-08 07:50] LABS: Glucose Point of Care 93 mg/dL (70-110)
[2022-02-08] MEDS: guaiFENesin 600 mg Tablet 1200 MG PO ×2 (08:49→17:37)
[2022-02-08] MEDS: metoprolol tartrate 25 mg Tablet PO ×2 (08:49→20:05)
[2022-02-08] MEDS: amiodarone 200 mg Tablet PO ×2 (08:49→17:38)
[2022-02-08] MEDS: ferrous gluconate 324 mg Tablet PO ×2 (08:49→17:38)
[2022-02-08] MEDS: pantoprazole 40 mg SDV IVP ×2 (08:49→20:05)
[2022-02-08] MEDS: enoxaparin 150 mg/mL Syringe SUBCUT ×2 (08:50→20:05)
--- NOTE | 2022-02-08 08:50 | PC.SOCIAL ---
IMM update IMM Updated with patient. Verbalized an understanding. Copy Pg 2 provided. Initialled, dated, timed, and placed in chart.
[2022-02-08] MEDS: insulin glargine 100 units/1 mL 37 UNIT SUBCUT ×2 (08:52→20:10)
[2022-02-08 11:43] LABS: Glucose Point of Care 123 mg/dL (70-110)
--- NOTE | 2022-02-08 13:46 | PM.PN ---
Subjective Subjective: No acute events overnight. Patient tolerated BiPAP overnight. Today morning seen sitting up in chair with family at bedside. He was transitioned over to nasal cannula again. Patient is awake and alert able to have complete conversation. Been seen by speech and physical therapy. Has remained hemodynamically stable and afebrile otherwise. Documented urine output of more than 2 L. Vitals/I&O/Wt Last Vital Signs Temp 97.9 F 02/08/22 03:00 Pulse 90 02/08/22 13:28 Resp 18 02/08/22 13:14 BP 121/83 02/08/22 08:00 Pulse Ox 92 02/08/22 13:18 O2 Del Method 02/08/22 13:14 O2 Flow Rate 6 02/08/22 13:14 FiO2 40 02/08/22 13:18 02/07/22 02/08/22 02/08/22 22:59 06:59 14:59 Intake Total 460 / 802.123 240 / 1042.123 50 / 50 Output Total 550 / 1150 1700 / 2850 Balance -90 / -347.877 -1460 / -1807.877 50 / 50 Weight last 48 hrs Weight 189.738 kg Weight 194.636 kg Physical Exam Narrative: No acute distress, morbidly obese Const: GENERAL APPEARANCE: cooperative, comfortable, well developed, lethargic and patient mechanically ventilated NUTRITIONAL APPEARANCE: obese morbidly obese ORIENTATION/CONSCIOUSNESS: Yes lethargic Neck/C-Spine: OTHER: Thick LIJ CVC Resp: AUSCULTATION: rhonchi and diminished lung sounds on the left Cardio: COMMON NORMALS: regular rhythm, S1 normal heart sound present, S2 normal heart sound present and No murmurs present (Cardio) RATE: tachycardic RHYTHM: regular rhythm HEART SOUNDS: S1 normal heart sound present and S2 normal heart sound present OTHER: Irregularly irregular with occasional tachycardia GI: COMMON NORMALS: Normal to inspection, nondistended, normoactive bowel sounds present and Soft to palpation PALPATION: Yes Soft to palpation OTHER: Large pannus Extremity: COMMON NORMALS: no joint enlargement GENERAL: Yes edema (trace, difficult to assess) Neuro: SENSORIUM/ORIENTATION: Yes lethargic Skin: OTHER: BL chronic stasis changes Urinary Catheter Management: Lord: Cath Placed During This Visit: no Reason for Continuing Indwelling Catheter: Accurate Measurement of Urinary Output in Critically Ill Patients Data : 02/08/22 04:38 02/08/22 04:38 Micro: Microbiology 01/30/22 15:45 Gram Stain - Final Sputum - Endotracheal Tube Aspirate Sputum Culture - Final Acinetobacter baumannii/haemol A&P Assessment and plan (1) Acute on chronic respiratory failure with hypoxia and hypercapnia: Secondary to a combination of mucous plugging causing whiteout of left lung secondary to pneumonia, COPD exacerbation, obstructive sleep apnea. Post bronchoscopy and washout. Follow-up sputum cultures. MRSA negative. Stop vancomycin. Continue with meropenem. Repeat chest x-ray shows improvement in left lung opacity. Echocardiogram results appreciated. Normal EF of 55 to 60%, RVSP of 25 mmHg, difficult to assess diastolic function given atrial fibrillation. Aggressive pulmonary toilet with chest vest. Incentive spirometry. DuoNebs every 4 hour, budesonide twice daily. Continue with acetylcysteine nebulization. Continue with Solu-Medrol 40 mg twice daily. We will plan to wean gradually within next 24 to 48 hours. Out of bed to chair. Speech therapy. Physical therapy. (2) Encephalopathy acute: Most likely secondary to hypoxia and hypercapnia. Cannot rule out encephalopathy secondary to pneumonia. Seems to be resolving. Continue with home dose of duloxetine. Continue with sedation. We will plan for gradual weaning. (3) CHF (congestive heart failure): Acute on chronic. Appreciate echocardiogram results as above. Hold off on diuresis for now. Patient overall more than 6 L negative. Qualifiers: Heart failure type: diastolic Heart failure chronicity: acute on chronic Qualified Code(s): I50.33 - Acute on chronic diastolic (congestive) heart failure (4) COPD (chronic obstructive pulmonary disease): Chronically on oxygen generally at 4L bnc at rest but lately requiring 6L. Treatment as above. Qualifiers: COPD type: COPD with acute exacerbation Qualified Code(s): J44.1 - Chronic obstructive pulmonary disease with (acute) exacerbation (5) Anemia: Chronic macrocytic anemia with baseline hemoglobin around 10. Appreciate vitamin B12 folate levels. Start on oral iron supplementation. Qualifiers: Anemia type: unspecified type Qualified Code(s): D64.9 - Anemia, unspecified (6) CKD stage 2 due to type 2 diabetes mellitus: Baseline creatinine around 1.1. Currently stable. Monitor fluid status daily. Hold off on any further diuresis or IV fluids for now. Medical reconciliation done for nephrotoxic drugs. Monitor BMP daily. (7) Hypertension: Goal blood pressure less than 140/ 90 mmHg with mean over 65. Requiring Levophed on and off. Currently blood pressure is well controlled. Chronically takes Imdur 50 mg daily, lisinopril 5 mg daily, metoprolol 100 mg twice daily along with Lasix and spironolactone. Start on low-dose beta-rosie. (8) Atrial fibrillation: With RVR. Has been continued on amiodarone drip at 0.5 for last 4 days. Switch to amiodarone 200 mg twice daily. Start on low-dose beta-rosie with metoprolol 25 mg twice daily. Takes Eliquis 5 mg twice daily at home. Currently on Lovenox 150 mg twice daily. If hemoglobin remained stable for next any 4 hours we will switch back to home dose of Eliquis. Qualifiers: Atrial fibrillation type: longstanding persistent Qualified Code(s): I48.11 - Longstanding persistent atrial fibrillation (9) Chronic anticoagulation: Previously on Eliquis, secondary to atrial fibrillation (10) Dyslipidemia: Chronically on statin Last lipid panel in 06/2020 showed total cholesterol of 180, LDL 111, HDL 25, TG 169 (11) Diabetes mellitus, type II: Insulin sliding scale at 37 units. Sliding scale insulin 6 hourly.. 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 Increase 10 cc every 4-6 hours with goal of 50 cc/h. Free water flushes to 50 every 6 hours. CODE STATUS: Full code. PUD prophylaxis: Protonix 40 mg twice daily DVT prophylaxis: Full dose Lovenox 130 mg twice daily will suffice for DVT prophylaxis. Discharge planning: Discussed in detail with the patient. We discussed that he would need at least SNF placement for short-term given severe physical deconditioning from prolonged hospitalization and mechanical ventilation. Patient is reluctant but is agreeable to think and discuss about it with the family. Continue with care at ICU level. Patient's care discussed in detail with patient's sister and fianc?/DPOA in detail. All the questions were answered. We discussed that patient remains critically sick. We discussed plan for now is to continue with mechanical ventilation repeat chest x-ray in 24 hours to see if further bronchoscopy and washout is needed. Not needed can plan for trial of extubation. We also discussed for now no plans for tracheostomy until patient fails at least 1 trial of extubation. We also discussed possibility of discharge to select versus SNF once patient is medically cleared depending on need of tracheostomy or feeding tube going forward. Plan for the day: Appreciate sputum culture. Positive for Acetobacter. Switch to ceftriaxone to finish overall 14-day course. 4 days left. Physical therapy, speech therapy. Advance diet accordingly. DuoNebs every 6 hour, desonide twice daily. BiPAP nightly. Oxygen supplementation keeping saturation over 88%. Been Solu-Medrol from tomorrow. We will plan for 20 mg twice daily tomorrow. Continue with metoprolol 25 twice daily, amiodarone 200 twice daily. Aggressive pulmonary toilet with incentive spirometry, chest vest. Plan to transfer to [facility] within next 24 hours if patient remains hemodynamically stable. This documentation was created by [employer] bell maker software. Every effort was made to ensure accuracy of bell maker. Any obvious errors or omissions should be clarified with the author of the document. Attestations Medical Necessity Statement*: Requires further hospitalization for management of hypoxic and hypercapnic respiratory failure secondary COPD, OHA exacerbation in setting of aspiration pneumonia, atrial fibrillation, severe physical deconditioning passive discharge planning is sought. 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 for Antonette Avila Diagnoses Acute on chronic respiratory failure with hypoxia and hypercapnia J96.21; J96.22 Encephalopathy acute G93.40 CHF (congestive heart failure) I50.33 Heart failure type: diastolic Heart failure chronicity: acute on chronic COPD (chronic obstructive pulmonary disease) J44.1 COPD type: COPD with acute exacerbation Anemia D64.9 Anemia type: unspecified type CKD stage 2 due to type 2 diabetes mellitus E11.22; N18.2 Hypertension I10 Atrial fibrillation I48.11 Atrial fibrillation type: longstanding persistent Chronic anticoagulation Z79.01 Dyslipidemia E78.5 Diabetes mellitus, type II E11.65; Z79.4 Diabetes mellitus complication status: with hyperglycemia 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
[2022-02-08] MEDS: cefTRIAXone 1,000 MG in sodium chloride 0.9% (plus) 50 ML 100 MG IV (15:12)
[2022-02-08 17:14] LABS: Glucose Point of Care 142 mg/dL (70-110)
[2022-02-08] MEDS: insulin lispro 100 unit/1 mL SUBCUT (17:38)
[2022-02-08] MEDS: nystatin powder 15 gm Btl 1 APPLIC TOPICAL (17:39)
[2022-02-08 19:58] LABS: Glucose Point of Care 138 mg/dL (70-110)
[2022-02-08] MEDS: atorvastatin 40 mg Tablet 80 MG PO (20:05)
[2022-02-08] MEDS: docusate sodium 10 mg/mL (5ml) Liq 100 MG PO (20:13)
[2022-02-08] MEDS: duloxetine 60 mg Capsule PO (20:13)
[2022-02-08] MEDS: cefepime 1,000 MG in sodium chloride 0.9% (plus) 50 ML 100 MG IV (23:58)
[2022-02-09] VITALS (40 sets, daily range): BP systolic 90–144; BP diastolic 66–93; PULSE 69–134; RESP 14–37; TEMP 35.8–36.9; O2SAT 89–96
[2022-02-09 00:02] LABS: Glucose Point of Care 71 mg/dL (70-110)
[2022-02-09] MEDS: chlorhexidine gluconate 4% Btl 118 mL 1 APPLIC TOPICAL ×5 (01:00→21:58)
[2022-02-09] MEDS: ipratropium-albuterol 3 mL Neb INHALATION ×4 (03:05→19:41)
[2022-02-09 05:35] LABS: Glucose Point of Care 102 mg/dL (70-110)
[2022-02-09] MEDS: metoprolol tartrate 25 mg Tablet PO ×2 (08:02→21:59)
[2022-02-09] MEDS: amiodarone 200 mg Tablet PO ×2 (08:02→17:30)
[2022-02-09] MEDS: ferrous gluconate 324 mg Tablet PO ×2 (08:02→17:30)
[2022-02-09] MEDS: guaiFENesin 600 mg Tablet 1200 MG PO ×2 (08:02→17:30)
[2022-02-09] MEDS: pantoprazole 40 mg SDV IVP ×2 (08:02→21:57)
[2022-02-09] MEDS: insulin glargine 100 units/1 mL 37 UNIT SUBCUT ×2 (08:03→22:08)
[2022-02-09] MEDS: budesonide 0.5 mg/2 mL Neb INHALATION ×2 (08:18→19:41)
[2022-02-09] MEDS: cefepime 1,000 MG in sodium chloride 0.9% (plus) 50 ML 100 MG IV ×2 (10:36→22:30)
[2022-02-09] MEDS: apixaban 5 mg Tablet PO ×2 (10:36→21:59)
[2022-02-09] MEDS: nystatin powder 15 gm Btl 1 APPLIC TOPICAL ×2 (10:37→18:26)
[2022-02-09] MEDS: docusate sodium 10 mg/mL (5ml) Liq 100 MG PO ×2 (10:37→21:59)
[2022-02-09 12:03] LABS: Glucose Point of Care 105 mg/dL (70-110)
--- NOTE | 2022-02-09 12:09 | P.PN_ITS ---
Subjective Subjective: No acute vents overnight. Patient tolerated BiPAP well overnight. Today morning examination on 4 L saturating over 90%. Sat up in chair for most of the day yesterday. Good urine output last 24 hours. Medications: Reviewed: Yes Vitals/I&O/Wt Last Vital Signs Temp 96.5 F L 02/09/22 07:00 Pulse 90 02/09/22 10:00 Resp 22 H 02/09/22 10:00 BP 104/69 02/09/22 10:00 Pulse Ox 94 02/09/22 10:00 O2 Del Method 02/09/22 10:00 O2 Flow Rate 4 02/09/22 10:00 FiO2 40 02/09/22 08:22 02/08/22 02/09/22 02/09/22 22:59 06:59 14:59 Intake Total 130 / 230 170 / 400 240 / 240 Output Total 1700 / 2700 Balance 130 / -770 -1530 / -2300 240 / 240 Weight last 48 hrs Weight 190.055 kg Weight 189.738 kg Physical Exam Narrative: No acute distress, morbidly obese Const: GENERAL APPEARANCE: cooperative, comfortable, well developed, lethargic and patient mechanically ventilated NUTRITIONAL APPEARANCE: obese morbidly obese ORIENTATION/CONSCIOUSNESS: Yes lethargic Neck/C-Spine: OTHER: Thick LIJ CVC Resp: AUSCULTATION: rhonchi and diminished lung sounds on the left Cardio: COMMON NORMALS: regular rhythm, S1 normal heart sound present, S2 normal heart sound present and No murmurs present (Cardio) RATE: tachycardic RHYTHM: regular rhythm HEART SOUNDS: S1 normal heart sound present and S2 normal heart sound present OTHER: Irregularly irregular with occasional tachycardia GI: COMMON NORMALS: Normal to inspection, nondistended, normoactive bowel sounds present and Soft to palpation PALPATION: Yes Soft to palpation OTHER: Large pannus Extremity: COMMON NORMALS: no joint enlargement GENERAL: Yes edema (trace, difficult to assess) Neuro: SENSORIUM/ORIENTATION: Yes lethargic Skin: OTHER: BL chronic stasis changes Urinary Catheter Management: Lord: Cath Placed During This Visit: no Reason for Continuing Indwelling Catheter: Accurate Measurement of Urinary Output in Critically Ill Patients Data : 02/08/22 04:38 02/08/22 04:38 Micro: Microbiology 01/30/22 15:45 Gram Stain - Final Sputum - Endotracheal Tube Aspirate Sputum Culture - Final Acinetobacter baumannii/haemol A&P Assessment and plan (1) Acute on chronic respiratory failure with hypoxia and hypercapnia: Secondary to a combination of mucous plugging causing whiteout of left lung secondary to pneumonia, COPD exacerbation, obstructive sleep apnea. Post bronchoscopy and washout. Extubated on 02/07. Sputum culture consistent with Acinetobacter. MRSA negative. Switch antibiotics to cefepime to finish a 14-day course. Last dose on 02/13. Repeat chest x-ray shows improvement in left lung opacity. Echocardiogram results appreciated. Normal EF of 55 to 60%, RVSP of 25 mmHg, difficult to assess diastolic function given atrial fibrillation. Aggressive pulmonary toilet with chest vest. Incentive spirometry. DuoNebs every 4 hour, budesonide twice daily. Continue with acetylcysteine nebulization. Wean Solu-Medrol 40 mg IV daily. Will wean further and transition to oral over the next 48 hours. Out of bed to chair. Advance diet as per speech therapy. Physical therapy. BiPAP nightly. (2) Encephalopathy acute: Most likely secondary to hypoxia and hypercapnia. Cannot rule out encephalopathy secondary to pneumonia. Resolved. Continue with home dose of duloxetine. Continue with sedation. We will plan for gradual weaning. (3) CHF (congestive heart failure): Acute on chronic. Appreciate echocardiogram results as above. Hold off on diuresis for now. Patient overall more than 9 L negative. Qualifiers: Heart failure type: diastolic Heart failure chronicity: acute on chronic Qualified Code(s): I50.33 - Acute on chronic diastolic (congestive) heart failure (4) COPD (chronic obstructive pulmonary disease): Chronically on oxygen generally at 4L bnc at rest but lately requiring 6L. Treatment as above. Qualifiers: COPD type: COPD with acute exacerbation Qualified Code(s): J44.1 - Chronic obstructive pulmonary disease with (acute) exacerbation (5) Anemia: Chronic macrocytic anemia with baseline hemoglobin around 10. Appreciate vitamin B12 folate levels. Start on oral iron supplementation. Qualifiers: Anemia type: unspecified type Qualified Code(s): D64.9 - Anemia, unspecified (6) CKD stage 2 due to type 2 diabetes mellitus: Baseline creatinine around 1.1. Currently stable. Monitor fluid status daily. Hold off on any further diuresis or IV fluids for now. Medical reconciliation done for nephrotoxic drugs. Monitor BMP daily. (7) Hypertension: Goal blood pressure less than 140/ 90 mmHg with mean over 65. Blood pressure is better. Continue with metoprolol 25 mg twice daily. Chronically takes Imdur 50 mg daily, lisinopril 5 mg daily, metoprolol 100 mg twice daily along with Lasix and spironolactone. (8) Atrial fibrillation: Rate controlled. Continue with amiodarone 200 mg twice daily along with metoprolol 25 mg twice daily. Switch to oral Eliquis 5 mg twice daily. Qualifiers: Atrial fibrillation type: longstanding persistent Qualified Code(s): I48.11 - Longstanding persistent atrial fibrillation (9) Chronic anticoagulation: Previously on Eliquis, secondary to atrial fibrillation (10) Dyslipidemia: Chronically on statin Last lipid panel in 06/2020 showed total cholesterol of 180, LDL 111, HDL 25, TG 169 (11) Diabetes mellitus, type II: Insulin sliding scale at 37 units. Sliding scale insulin 6 hourly.. 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 Increase 10 cc every 4-6 hours with goal of 50 cc/h. Free water flushes to 50 every 6 hours. CODE STATUS: Full code. PUD prophylaxis: Protonix 40 mg twice daily DVT prophylaxis: Full dose Lovenox 130 mg twice daily will suffice for DVT prophylaxis. Discharge planning: Discussed in detail with the patient. We discussed that he would need at least SNF placement for short-term given severe physical deconditioning from prolonged hospitalization and mechanical ventilation. Armond chacon is agreeable for SNF for short-term. Case management alerted. Transfer to [facility] with telemetry. Patient's care discussed in detail with patient's sister and fianc?/DPOA in detail. All the questions were answered. We discussed that patient remains critically sick. We discussed plan for now is to continue with mechanical ventilation repeat chest x-ray in 24 hours to see if further bronchoscopy and washout is needed. Not needed can plan for trial of extubation. We also discussed for now no plans for tracheostomy until patient fails at least 1 trial of extubation. We also discussed possibility of discharge to select versus SNF once patient is medically cleared depending on need of tracheostomy or feeding tube going forward. This documentation was created by [employer] nurse ldr software. Every effort was made to ensure accuracy of nurse ldr. Any obvious errors or omissions should be clarified with the author of the document. Attestations Medical Necessity Statement*: Patient requires further hospitalization for management of hypercapnic hypoxic respiratory failure secondary to COPD exacerbation in setting of aspiration pneumonia, left lung whiteout, postextubation, severe physical deconditioning while safe discharge planning is sought. Time Spent in Patient Care: Greater than 35 minutes Coding Level of Care Code Acute Resident Care Associate for Chg Fwd Diagnoses Acute on chronic respiratory failure with hypoxia and hypercapnia J96.21; J96.22 Encephalopathy acute G93.40 CHF (congestive heart failure) I50.33 Heart failure type: diastolic Heart failure chronicity: acute on chronic COPD (chronic obstructive pulmonary disease) J44.1 COPD type: COPD with acute exacerbation Anemia D64.9 Anemia type: unspecified type CKD stage 2 due to type 2 diabetes mellitus E11.22; N18.2 Hypertension I10 Atrial fibrillation I48.11 Atrial fibrillation type: longstanding persistent Chronic anticoagulation Z79.01 Dyslipidemia E78.5 Diabetes mellitus, type II E11.65; Z79.4 Diabetes mellitus complication status: with hyperglycemia 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
--- NOTE | 2022-02-09 12:10 | PM.PN ---
Subjective Subjective: Seen at bedside -Currently on BiPAP with 40% FiO2 -Alert and following commands and able to have meaningful conversations -Overall clinically improving -No acute events overnight. -Can be transferred to floor -Continue bedside physical therapy, out of bed to chair, incentive spirometry Medications: Reviewed: Yes Vitals/I&O/Wt Last Vital Signs Temp 96.5 F L 02/09/22 07:00 Pulse 90 02/09/22 10:00 Resp 22 H 02/09/22 10:00 BP 104/69 02/09/22 10:00 Pulse Ox 94 02/09/22 10:00 O2 Del Method 02/09/22 10:00 O2 Flow Rate 4 02/09/22 10:00 FiO2 40 02/09/22 08:22 02/08/22 02/09/22 02/09/22 22:59 06:59 14:59 Intake Total 130 / 230 170 / 400 240 / 240 Output Total 1700 / 2700 Balance 130 / -770 -1530 / -2300 240 / 240 Weight last 48 hrs Weight 419 lb Weight 418 lb 4.8 oz Physical Exam Narrative: PHYSICAL EXAM: General: lying in bed, sedated and intubated. HEENT:NCAT, PERRLA, EOMI Neck: Supple Lungs: Crackles predominantly on left side Heart: s1/s2, RRR Abd: Significantly obese abdomen, rash noted in creases, soft, NT, ND, BS + Normoactive Extremities: No edema REED PRESS FEEDER: sedated and limited REED PRESS FEEDER exam possible. SKIN: no rash Urinary Catheter Management: Lord: Cath Placed During This Visit: no Reason for Continuing Indwelling Catheter: Accurate Measurement of Urinary Output in Critically Ill Patients Data : 02/08/22 04:38 02/08/22 04:38 Other Labs: Radiology Impressions Chest CT 02/03/22 15:49 IMPRESSION: 1. Complete collapse LEFT lower lobe and partial collapse LEFT upper lobe with volume loss in the LEFT thorax. 2. Partial atelectasis RIGHT lower lobe with a small effusion. 3. Very small LEFT pleural effusion. 4. Cardiomegaly. 5. Endotracheal tube and nasogastric tubes are in good position. Chest X-Ray 02/09/22 17:36 IMPRESSION: 1. Near complete opacification of the left hemithorax. This could represent dense consolidation of the left lung with a possible superimposed left pleural effusion. Laboratory Results WBC 13.1 10^3/uL (4.0-10.0) H 02/08/22 04:38 RBC 3.10 10^6/uL (4.1-5.3) L 02/08/22 04:38 Hgb 9.1 g/dL (11.7-16.6) L 02/08/22 04:38 Hct 30.3 % (42.0-52.0) L 02/08/22 04:38 MCV 97.7 fl (80-94) H 02/08/22 04:38 MCH 29.4 pg (28.0-34.0) 02/08/22 04:38 MCHC 30.0 g/dL (30.0-36.0) 02/08/22 04:38 RDW 15.3 % (12.1-15.1) H 02/08/22 04:38 Plt Count 245 10^3/cmm (130-400) 02/08/22 04:38 MPV 12.0 fL (7.4-10.4) H 02/08/22 04:38 Neut % (Auto) 79.1 % 02/08/22 04:38 Lymph % (Auto) 9.9 % 02/08/22 04:38 [place] % (Auto) 8.9 % 02/08/22 04:38 Eos % (Auto) 0.8 % 02/08/22 04:38 Baso % (Auto) 0.2 % 02/08/22 04:38 Neut # (Auto) 10.35 10^3/uL (1.8-7.7) H 02/08/22 04:38 Lymph # (Auto) 1.3 10^3/uL (0.8-4.8) 02/08/22 04:38 [place] # (Auto) 1.2 10^3/uL (0.2-0.9) H 02/08/22 04:38 Eos # (Auto) 0.1 10^3/uL (0.0-0.8) 02/08/22 04:38 Baso # (Auto) 0.0 10^3/uL (0.0-0.1) 02/08/22 04:38 Nucleated RBC % (auto) 0 % 02/08/22 04:38 Nucleated RBCs # 0.0 /100WBC 02/08/22 04:38 PT 17.20 SECONDS (12.1-14.9) H 01/31/22 03:40 INR 1.37 (0.8-1.2) H 01/31/22 03:40 APTT 41.4 SECONDS (23.9-36.7) H 01/31/22 03:40 Specimen Type Arterial 02/07/22 13:05 Sample Site Radial, left 02/07/22 13:05 ABG pH 7.42 (7.35-7.45) 02/07/22 13:05 ABG pCO2 63.1 mmHg (35-45) H* 02/07/22 13:05 ABG pO2 62.8 mmHg (80.0-100.0) L 02/07/22 13:05 ABG HCO3 40.6 mmol/L (22-26) H 02/07/22 13:05 ABG O2 Saturation 90.7 02/07/22 13:05 ABG Base Excess 14.0 mmol/L (-2.0-2.0) H 02/07/22 13:05 Jax Test Pos 02/07/22 13:05 A-a O2 Gradient 19.3 mmHg (5-10) H 02/07/22 13:05 Hematocrit 29.4 % (42-52) L 02/07/22 13:05 Hgb O2 Saturation 89.1 % (95-100) L 02/07/22 13:05 Carboxyhemoglobin 1.4 %THgb (0.4-20.1) 02/07/22 13:05 Methemoglobin 0.5 % (0.4-1.5) 02/07/22 13:05 Total Hemoglobin 9.6 g/dL (14-18) L 02/07/22 13:05 Sodium 142.0 mmol/L (131-143) 02/07/22 13:05 Potassium 4.0 mmol/L (3.5-5.0) 02/07/22 13:05 Glucose 144.0 mg/dL (70-115) H 02/07/22 13:05 Ionized Calcium 1.1 mmol/L (1.1-1.4) 02/07/22 13:05 O2 Delivery Device Vent 02/07/22 13:05 O2 Liters/Min 4.0 % 01/30/22 12:06 FiO2 40.0 % 02/07/22 13:05 Tidal Volume 0.45 02/03/22 05:53 PEEP 8.0 cmH20 02/07/22 13:05 Orange Grower ID Cak 02/07/22 13:05 Sodium 143 mmol/L (136-145) 02/08/22 04:38 Potassium 4.0 mmol/L (3.5-5.1) 02/08/22 04:38 Chloride 97 mmol/L (98-107) L 02/08/22 04:38 Carbon Dioxide 38 mmol/L (22-29) H 02/08/22 04:38 Anion Gap 12.0 (5-19) 02/08/22 04:38 BUN 51 mg/dL (8-23) H 02/08/22 04:38 Creatinine 1.4 mg/dL (0.7-1.2) H 02/08/22 04:38 GFR Calculation 51.4 mL/min (90-130) L 02/08/22 04:38 Glucose 103 mg/dL (65-115) 02/08/22 04:38 POC Glucose 132 mg/dL (70-110) H 02/09/22 17:38 Calculated Osmolality 310 mOsm/kg (285-295) H 02/08/22 04:38 Lactic Acid 0.9 mmol/L (0.5-2.2) 01/30/22 17:10 Uric Acid 7.3 mg/dL (3.4-7.0) H 01/31/22 03:40 Calcium 8.6 mg/dL (8.5-10.5) 02/08/22 04:38 Phosphorus 3.1 mg/dL (2.5-4.5) 01/31/22 03:40 Magnesium 2.1 mg/dL (1.7-2.3) 01/31/22 03:40 Iron 17 ug/dL (59-158) L 01/31/22 03:40 TIBC 191 mcg/dl 01/31/22 03:40 % Saturation 8.9 % (20-50) L 01/31/22 03:40 Unsat Iron Binding 174 ug/dL (112-347) 01/31/22 03:40 Total Bilirubin 0.3 mg/dL (0.15-1.2) 02/08/22 04:38 AST 39 U/L (0-40) 02/08/22 04:38 ALT 31 U/L (0-41) 02/08/22 04:38 Alkaline Phosphatase 81 U/L (40-130) 02/08/22 04:38 Creatine Kinase 71 U/L (39-308) 01/30/22 12:03 Troponin T Baseline 35 ng/L (0-15) H 01/30/22 12:03 Troponin T 120 Minute 34.86 ng/L (0-15) H 01/30/22 14:05 Delta Troponin T -0.14 ABS# (0-10) L 01/30/22 14:05 Troponin T Hi Sens 6Hr 32.80 ng/L (0-15) H 01/30/22 17:59 Troponin T Hi Sens 6Hr Delta -2.20 ng/L (0-12) L 01/30/22 17:59 NT-Pro-B Natriuret Pep 2048 pg/mL (0-125) H 01/30/22 12:03 Total Protein 6.3 g/dL (6.6-8.7) L 02/08/22 04:38 Albumin 3.1 g/dL (3.5-5.2) L 02/08/22 04:38 Globulin 3.2 g/dL (1.3-4.6) 02/08/22 04:38 Triglycerides 237 mg/dL (0-150) H 02/07/22 02:47 Cholesterol 205 mg/dL (0-200) H 02/07/22 02:47 LDL Cholesterol, Calc 104 mg/dL (50-129) 02/07/22 02:47 Total VLDL Cholesterol 47 mg/dL (0-30) H 02/07/22 02:47 HDL Cholesterol 54 mg/dL (60-100) L 02/07/22 02:47 Cholesterol/HDL Ratio 3.80 mg/dL (1.0-5.00) 02/07/22 02:47 Vitamin B12 1289 pg/mL (232-1245) H 01/31/22 03:40 Folate 18.2 ng/mL (4.5-32.2) 01/31/22 03:40 Procalcitonin 0.15 ng/mL (0-0.5) 02/06/22 04:19 TSH 0.62 uIU/mL (0.27-4.20) 02/06/22 04:19 TSH Cancelled 02/06/22 04:19 Urine Color Straw (Yellow) 01/30/22 12:49 Urine Appearance Clear (CLEAR) 01/30/22 12:49 Urine pH 5 (5-7) 01/30/22 12:49 Ur Specific [place] 1.010 (1.005-1.030) 01/30/22 12:49 Urine Protein Neg (Negative) 01/30/22 12:49 Urine Glucose (UA) Norm (Normal) 01/30/22 12:49 Urine Ketones Negative (Negative) 01/30/22 12:49 Urine Blood Neg (Negative) 01/30/22 12:49 Urine Nitrate Negative (Negative) 01/30/22 12:49 Urine Bilirubin Neg (Negative) 01/30/22 12:49 Urine Urobilinogen Norm mg/dL (Negative) 01/30/22 12:49 Ur Leukocyte Esterase Negative (Negative) 01/30/22 12:49 Vancomycin Trough 15.2 ug/mL (10-15) H 02/06/22 04:19 Random Vancomycin 16.4 ug/mL (20.0-40.0) L 02/05/22 03:19 Coronavirus 229E (PCR) Not detected (NOT DETECT) 01/30/22 17:09 SARS-CoV-2 (PCR) Not detected (NOT DETECT) 01/30/22 17:09 Micro: Microbiology 01/30/22 15:45 Gram Stain - Final Sputum - Endotracheal Tube Aspirate Sputum Culture - Final Acinetobacter baumannii/haemol A&P Assessment and plan (1) Acute on chronic respiratory failure with hypoxia and hypercapnia: (2) SHERLEY (obstructive sleep apnea): (3) CHF (congestive heart failure): Qualifiers: Heart failure chronicity: acute on chronic Heart failure type: diastolic Qualified Code(s): I50.33 - Acute on chronic diastolic (congestive) heart failure (4) CKD stage 2 due to type 2 diabetes mellitus: (5) Atrial fibrillation: Qualifiers: Atrial fibrillation type: longstanding persistent Qualified Code(s): I48.11 - Longstanding persistent atrial fibrillation (6) Diabetes mellitus, type II: Qualifiers: Diabetes mellitus complication status: with hyperglycemia Diabetes mellitus penitentiary insulin use: with long term care administrator use Qualified Code(s): E11.65 - Type 2 diabetes mellitus with hyperglycemia; 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 (7) Chronic anticoagulation: (8) COPD (chronic obstructive pulmonary disease): Qualifiers: COPD type: COPD with acute exacerbation Qualified Code(s): J44.1 - Chronic obstructive pulmonary disease with (acute) exacerbation (9) On home oxygen therapy: (10) Difficulty with BiPAP use: (11) Mucus plugging of bronchi: (12) BMI 50.0-59.9, adult: (13) Pneumonia due to Acinetobacter species: Plan #Acute on chronic hypercapnic respiratory failure in patient with underlying grade 3 diastolic heart failure, COPD, obstructive sleep apnea, obesity hypoventilation-noncompliant with home BiPAP-complicated by aspiration and plugging of left tracheobronchial tree and adhesive atelectasis -Intubated during admission--Underwent BAL/aspiration of mucous plugs on 01/31/2022 and 02/02/2022 however postprocedure chest x-ray did not improve much for 2 days suspicious for adhesive atelectasis -With increased PEEP to 12 and continue hypertonic saline/Mucomyst nebulization every 12 hours and chest physiotherapy 3 times a day; after 72 hours CXR looks much improved, ABG acceptable, patient following commands- Extubated to BiPAP successfully; -Continue DuoNeb nebulization and currently on methylprednisone 40 daily once - can switch to tapering doses of Po prednisone for 5 more days -Patient on vancomycin and imipenem-later changed to meropenem-on antibiotics for 10 days; Sputum cultures 01/30/2022-Nazario sensitive acinetobacter - Can DC Vancomycin and meropenem and switch to PO levaquin for 5 days #Admitted with AMS-likely secondary to CO2 narcosis due to noncompliant with BiPAP-mentation improved with ventilation -Following commands and no focal deficits #Diastolic CHF #EKG showed atrial fibrillation with RVR -Grade 3/4 diastolic CHF on previous echo 2017 -Initially patient received Lasix 60 Mg IVP-good urine output and net -7 L-we will hold Lasix -Echocardiogram 02/06/2022-technically difficult study, normal LV cavity size and systolic function with EF 55 to 60% -Patient on amiodarone 200 Mg p.o. twice daily and on PO Elliquis -We will continue to monitor electrolytes, renal functions #JAMES-likely secondary to sepsis/prerenal -Requiring intermittent Levophed to maintain MAP greater than 65 -Creatinine and BUN stabilized -Monitor input output, renal parameters -Hold Lasix #Moderately controlled sugars probably secondary to steroids -Currently on Lantus 37 bid and on scale coverage -Monitor sugars ICU CHECKLIST: Problem list updated Verbal orders reviewed and signed Analgesia: None Glycemic Control: Insulin Nutrition: Patient at bedside swallow evaluation and can start soft feeding Restraint Renewal (within 24 hrs): None Ulcer Prophylaxis: PPI Chemical Thromboprophylaxis:Elliquis Mechanical Thromboprophylaxis: SCDs Need for Central line: NA Need for Lord catheter: NA Transfer: Floor Critical Care Time (No Overlap): 65 min This patient has a high probability of sudden, clinically significant deterioration, which requires the highest level of physician preparedness to intervene urgently. I managed/supervised life or organ supporting interventions that required frequent physician assessment. I devoted my full attention in the ICU to the direct care of this patient for the period of time indicated above. Time I spent with family or surrogate(s) is included only if the patient was incapable of providing necessary information or participating in decision making. Time devoted to teaching and to any procedures I billed separately is not included. Services Provided: Telemetry review Mechanical Ventilation Hemodynamic interpretation, assessment and management Review and interpretation of CXR Review and interpretation of lab values Review and interpretation of microbiologic data and culture results Review of medications and administration Review and interpretation of Nutrition requirements and management Discussion of management with other consultants and services Clinical update to family members As pt has clinically improved and moving out of ICU - I will sign off this case from critical care stand point. please reconsult if there is any change in clinical status. Attestations Medical Necessity Statement*: pt can be transferred out of ICU Time Spent in Patient Care: Greater than 35 minutes (>than 50% of time spent in counselling and/or direct pt care on unit). Critical Care Time: The high probability of a clinically significant, sudden or life threatening deterioration of the patient's [neurological, pulmonary, cardiac, renal, endocrine, infectious] system(s) required my full and direct attention, intervention and personal management. The critical care time is as shown. This time is in addition to time spent performing any reported procedures but includes the following: [x] Data and vital sign review and interpretation [x] Patient assessment, examination and intervention [x] Documentation [x] Medication orders and management Critical Care Time (min): 55 Coding Level of Care Code Acute Test Clerk for Oraciog Fwd Diagnoses Acute on chronic respiratory failure with hypoxia and hypercapnia J96.21; J96.22 SHERLEY (obstructive sleep apnea) G47.33 CHF (congestive heart failure) I50.33 Heart failure chronicity: acute on chronic Heart failure type: diastolic CKD stage 2 due to type 2 diabetes mellitus E11.22; N18.2 Atrial fibrillation I48.11 Atrial fibrillation type: longstanding persistent Diabetes mellitus, type II E11.65; Z79.4 Diabetes mellitus complication status: with hyperglycemia Diabetes mellitus long term care administrator insulin use: with penitentiary use Chronic anticoagulation Z79.01 COPD (chronic obstructive pulmonary disease) J44.1 COPD type: COPD with acute exacerbation On home oxygen therapy Z99.81 Difficulty with BiPAP use Z78.9 Mucus plugging of bronchi T17.500A BMI 50.0-59.9, adult Z68.43 Pneumonia due to Acinetobacter species J15.8 Time Spent (min) 55
--- NOTE | 2022-02-09 12:53 | PC.CHAP ---
x Pastoral Care Encounter/Spiritual Assessment Type of Contact [] Declined sales contract administrator visit [] Patient/Family/Request visit [] Outpatient visit [] Follow-up visit [] Physician referral [] Code/Alert [x] Routine visit [] Staff referral [] Actively dying [] Patient sleeping [] Family support [] [] Out of room [] Palliative care [] [] Receiving care in room [] Pre-surgical visit [] Trauma [] Long length of stay [x] ICU visit [] Other: Relational/Emotional Strength [] Patient feels connected with others/family/visitors/staff [] Distress [] Loneliness/isolation [] Abandonment Spirituality of Patient [] Person of Ruchi [] Attends Denominational of their Ruchi [] Believes in Prayer [] Reads Bible or Buddhism materials [] There are Spiritual issues to be addressed Horse Farm Manager 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 [x] Prayer [] Active listening [] Non-anxious presence [] Spiritual/emotional support [] Crisis/trauma care [] Spiritual counseling [] Bereavement support [] Provided bereavement packet [] Provided Bible/devotional materials [] Provided toy/stuffed animal, coloring book to patient or family member [] Provided Communion [] Anointing/Temple [] Salvation [x] Completed spiritual assessment [] Other: Impact on Illness or Injury [] Angry [] Fearful [] Anxious [] Often cries [] Exhaustion [] Unable to work [] Unable to attend baptism [] Unable to walk/stand [] Unable to read [] Unable to drive [] Unable to eat/drink [] Unable to sleep [] Unable to be with family [] Patient intubated [] Other: Summary Time spent with patient
--- NOTE | 2022-02-09 16:04 | PC.NURSE ---
Report called to MONA Leahy. No further questions. Patient and belongings taken to room 260. Life partner at bedside.
--- NOTE | 2022-02-09 17:36 | XRR_ITS ---
PROCEDURE INFORMATION: Exam: XR Chest Exam date and time: 02/09/2022 5:45 PM Age: 61 years old Clinical indication: Shortness of breath; Additional info: SOB TECHNIQUE: Imaging protocol: Radiologic exam of the chest. Views: 1 view. COMPARISON: CR (CHEST, ) 02/07/2022 3:23 AM FINDINGS: Tubes, catheters and devices: Left IJ triple-lumen catheter with tip over the mid SVC. Lungs: Near complete opacification of the left hemithorax. Mild atelectasis in the right lung base. Pleural spaces: Possible left pleural effusion. No pneumothorax. Heart/Mediastinum: Unremarkable. No cardiomegaly. Bones/joints: Unremarkable. XR/XR chest 1V portable [id number] IMPRESSION: 1. Near complete opacification of the left hemithorax. This could represent dense consolidation of the left lung with a possible superimposed left pleural effusion.
[2022-02-09 17:41] LABS: Glucose Point of Care 132 mg/dL (70-110)
[2022-02-09 21:52] LABS: Glucose Point of Care 168 mg/dL (70-110)
[2022-02-09] MEDS: atorvastatin 40 mg Tablet 80 MG PO (21:57)
[2022-02-09] MEDS: artificial tears Op Oint 3.5 gm 1 APPLIC EYE-BOTH (21:59)
[2022-02-09] MEDS: duloxetine 60 mg Capsule PO (21:59)
[2022-02-10] VITALS (17 sets, daily range): BP systolic 100–138; BP diastolic 56–85; PULSE 85–112; RESP 17–26; TEMP 36.6–37; O2SAT 90–99
[2022-02-10] MEDS: chlorhexidine gluconate 4% Btl 118 mL 1 APPLIC TOPICAL ×6 (00:30→19:32)
[2022-02-10 00:34] LABS: Glucose Point of Care 111 mg/dL (70-110)
[2022-02-10] MEDS: ipratropium-albuterol 3 mL Neb INHALATION ×5 (02:12→20:09)
[2022-02-10 03:16] LABS: Basophils % 0.1 %; Eosinophils # 0.2 10^3/uL (0.0-0.8); Eosinophils % 1.6 %; Hematocrit 31.6 % (42.0-52.0); Hemoglobin 9.1 g/dL (11.7-16.6); Lymphocytes # 1.9 10^3/uL (0.8-4.8); Lymphocytes % 17.9 %; Mean Corpuscular HGB Conc 28.8 g/dL (30.0-36.0); Mean Corpuscular Hemoglobin 28.7 pg (28.0-34.0); Mean Corpuscular Volume 99.7 fl (80-94); Mean Platelet Volume 12.1 fL (7.4-10.4); Monocytes # 1.1 10^3/uL (0.2-0.9); Monocytes % 10.9 %; Neutrophils # 7.18 10^3/uL (1.8-7.7); Nucleated Red Blood Cells % 0 %; Platelet Count 217 10^3/cmm (130-400); Red Blood Count 3.17 10^6/uL (4.1-5.3); Red Cell Distribution Width 15.2 % (12.1-15.1); White Blood Count 10.4 10^3/uL (4.0-10.0)
[2022-02-10 03:44] LABS: Alanine Aminotransferase 36 U/L (0-41); Albumin Level 2.9 g/dL (3.5-5.2); Alkaline Phosphatase 76 U/L (40-130); Aspartate Amino Transferase 33 U/L (0-40); Blood Urea Nitrogen 39 mg/dL (8-23); Calcium 8.8 mg/dL (8.5-10.5); Carbon Dioxide 38 mmol/L (22-29); Globulin 3.1 g/dL (1.3-4.6); Glomerular Filtration Rate 61.3 mL/min (90-130); Glucose 58 mg/dL (65-115); Total Bilirubin 0.3 mg/dL (0.15-1.2)
[2022-02-10 04:18] LABS: Osmolality Calculated 315 mOsm/kg (285-295); Sodium 149 mmol/L (136-145)
[2022-02-10 04:34] LABS: Anion Gap 11.5 (5-19); Chloride 103 mmol/L (98-107); Potassium 3.5 mmol/L (3.5-5.1)
[2022-02-10 06:29] LABS: Glucose Point of Care 309 mg/dL (70-110)
[2022-02-10 06:49] LABS: Glucose Point of Care 114 mg/dL (70-110)
[2022-02-10] MEDS: budesonide 0.5 mg/2 mL Neb INHALATION ×2 (08:10→20:09)
[2022-02-10] MEDS: amiodarone 200 mg Tablet PO ×2 (08:37→17:23)
[2022-02-10] MEDS: pantoprazole 40 mg SDV IVP ×2 (08:37→19:33)
[2022-02-10] MEDS: ferrous gluconate 324 mg Tablet PO ×2 (08:38→17:23)
[2022-02-10] MEDS: apixaban 5 mg Tablet PO ×2 (08:38→19:34)
[2022-02-10] MEDS: docusate sodium 10 mg/mL (5ml) Liq 100 MG PO ×2 (08:39→19:33)
[2022-02-10] MEDS: guaiFENesin 600 mg Tablet 1200 MG PO ×2 (08:40→17:23)
[2022-02-10] MEDS: predniSONE 20 mg Tablet 40 MG PO (08:40)
[2022-02-10] MEDS: metoprolol tartrate 25 mg Tablet PO ×2 (08:40→19:34)
[2022-02-10] MEDS: insulin glargine 100 units/1 mL 37 UNIT SUBCUT (08:40)
--- NOTE | 2022-02-10 09:06 | XR_ITS ---
WS: [id number] Portable AP semiupright chest, 02/10/2022 Clinical Data: LEFT LUNG COLLAPSE Comparison: Portable chest, 02/09/2022 Findings: There is complete opacification of the left thorax. The right cardiac border is visible. Th ere is patchy opacity in the right hilum extending of the right lower lobe. No masses are seen. There is a left internal jugular venous catheter ending in the superior vena cava. There is a monitor lead on the right chest wall. XR/XR chest 1V portable [id number] Impression: 1. Complete opacification of the left thorax which may represent atelectasis a nd effusion . 2. Opacification of the right hilum extending of the right lower lobe which cou ld represent pulmonary vascular congestion and/or pneumonia.
--- NOTE | 2022-02-10 10:19 | PC.CHAP ---
Pastoral Care Encounter/Spiritual Assessment Type of Contact [] Declined engineering job titles visit [] Patient/Family/Request visit [] Outpatient visit [] Follow-up visit [] Physician referral [] Code/Alert [x] Routine visit [] Staff referral [] Actively dying [] Patient sleeping [] Family support [] [] Out of room [] Palliative care [] [] Receiving care in room [] Pre-surgical visit [] Trauma [x] Long length of stay [] ICU visit [] Other: Relational/Emotional Strength [x] Patient feels connected with others/family/visitors/staff [] Distress [] Loneliness/isolation [] Abandonment Spirituality of Patient [x] Person of Ruchi [] Attends Christian of their Ruchi [x] Believes in Prayer [] Reads Bible or Hinduism materials [] There are Spiritual issues to be addressed [employer]i Press Operator 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 []x Prayer [x] Active listening [] Non-anxious presence [] Spiritual/emotional support [] Crisis/trauma care [] Spiritual counseling [] Bereavement support [] Provided bereavement packet [] Provided Bible/devotional materials [] Provided toy/stuffed animal, coloring book to patient or family member [] Provided Communion [] Anointing/[place] [] Salvation [x] Completed spiritual assessment [] Other: Impact on Illness or Injury [] Angry [] Fearful [] Anxious [] Often cries []x Exhaustion [] Unable to work [] Unable to attend restorationist [] Unable to walk/stand [] Unable to read [] Unable to drive [] Unable to eat/drink [] Unable to sleep [] Unable to be with family [] Patient intubated [] Other: Summary Time spent with patient patient tired
[2022-02-10 11:31] LABS: Glucose Point of Care 70 mg/dL (70-110)
--- NOTE | 2022-02-10 11:35 | PC.SOCIAL ---
IMM Update pg 2 of IMM updated and reviewed w/ patient and his sig. other. Copy provided and copy in chart dated and initialed.
[2022-02-10] MEDS: acetylcysteine 200 mg/mL SDV 4 mL 100 MG INHALATION ×3 (11:47→20:09)
[2022-02-10] MEDS: cefepime 1,000 MG in sodium chloride 0.9% (plus) 50 ML 100 MG IV ×2 (13:28→22:19)
[2022-02-10] MEDS: nystatin powder 15 gm Btl 1 APPLIC TOPICAL ×3 (14:07→19:32)
--- NOTE | 2022-02-10 14:35 | P.PN_ITS ---
Subjective Subjective: [facility] Yesterday morning evening patient's oxygen supplementation requirement went up again as high as 10 L. Repeat chest x-ray was done which showed very opacification of the left hemithorax. Patient has remained on BiPAP overnight. Today morning on examination patient is awake and alert with life partner at bedside. Oxygen supplementation turned down to 8 L high flow nasal cannula. Patient is able to have complete conversation. Sitting up in bariatric chair. Medications: Reviewed: Yes Vitals/I&O/Wt Last Vital Signs Temp 98.3 F 02/10/22 11:32 Pulse 91 02/10/22 11:47 Resp 22 H 02/10/22 11:47 BP 108/74 02/10/22 11:32 Pulse Ox 96 02/10/22 11:47 O2 Del Method 02/10/22 11:47 O2 Flow Rate 8 02/10/22 11:47 FiO2 40 02/10/22 08:16 02/09/22 02/10/22 02/10/22 22:59 06:59 14:59 Intake Total 20 / 310 50 / 360 240 / 240 Output Total 400 / 400 800 / 1200 Balance -380 / -90 -750 / -840 240 / 240 Weight last 48 hrs Weight 190.509 kg Weight 190.055 kg Physical Exam Narrative: No acute distress, morbidly obese Const: GENERAL APPEARANCE: cooperative, comfortable, well developed, lethargic and patient mechanically ventilated NUTRITIONAL APPEARANCE: obese morbidly obese ORIENTATION/CONSCIOUSNESS: Yes lethargic Neck/C-Spine: OTHER: Thick LIJ CVC Resp: AUSCULTATION: rhonchi and diminished lung sounds on the left Cardio: COMMON NORMALS: regular rhythm, S1 normal heart sound present, S2 normal heart sound present and No murmurs present (Cardio) RATE: tachycardic RHYTHM: regular rhythm HEART SOUNDS: S1 normal heart sound present and S2 normal heart sound present OTHER: Irregularly irregular with occasional tachycardia GI: COMMON NORMALS: Normal to inspection, nondistended, normoactive bowel sounds present and Soft to palpation PALPATION: Yes Soft to palpation OTHER: Large pannus Extremity: COMMON NORMALS: no joint enlargement GENERAL: Yes edema (trace, difficult to assess) Neuro: SENSORIUM/ORIENTATION: Yes lethargic Skin: OTHER: BL chronic stasis changes Urinary Catheter Management: Lord: Cath Placed During This Visit: no Reason for Continuing Indwelling Catheter: Acute Urinary Retention or Obstruction Data : 02/10/22 02:53 02/10/22 02:53 A&P Assessment and plan (1) Acute on chronic respiratory failure with hypoxia and hypercapnia: Secondary to a combination of mucous plugging causing whiteout of left lung secondary to pneumonia, COPD exacerbation, obstructive sleep apnea. Post bronchoscopy and washout. Extubated on 02/07. Sputum culture consistent with Acinetobacter. MRSA negative. Switch antibiotics to cefepime to finish a 14-day course. Last dose on 02/13. Repeat chest x-ray shows improvement in left lung opacity. Echocardiogram results appreciated. Normal EF of 55 to 60%, RVSP of 25 mmHg, difficult to assess diastolic function given atrial fibrillation. Aggressive pulmonary toilet with chest vest. Incentive spirometry. DuoNebs every 4 hour, budesonide twice daily. Continue with acetylcysteine nebulization. Wean Solu-Medrol 40 mg IV daily. Will wean further and transition to oral over the next 48 hours. Out of bed to chair. Advance diet as per speech therapy. Physical therapy. BiPAP nightly. (2) Encephalopathy acute: Most likely secondary to hypoxia and hypercapnia. Cannot rule out encephalopathy secondary to pneumonia. Resolved. Continue with home dose of duloxetine. Continue with sedation. We will plan for gradual weaning. (3) CHF (congestive heart failure): Acute on chronic. Appreciate echocardiogram results as above. Hold off on diuresis for now. Patient overall more than 9 L negative. Qualifiers: Heart failure type: diastolic Heart failure chronicity: acute on chronic Qualified Code(s): I50.33 - Acute on chronic diastolic (congestive) heart failure (4) COPD (chronic obstructive pulmonary disease): Chronically on oxygen generally at 4L bnc at rest but lately requiring 6L. Treatment as above. Qualifiers: COPD type: COPD with acute exacerbation Qualified Code(s): J44.1 - Chr onic obstructive pulmonary disease with (acute) exacerbation (5) Anemia: Chronic macrocytic anemia with baseline hemoglobin around 10. Appreciate vitamin B12 folate levels. Start on oral iron supplementation. Qualifiers: Anemia type: unspecified type Qualified Code(s): D64.9 - Anemia, unspecified (6) CKD stage 2 due to type 2 diabetes mellitus: Baseline creatinine around 1.1. Currently stable. Monitor fluid status daily. Hold off on any further diuresis or IV fluids for now. Medical reconciliation done for nephrotoxic drugs. Monitor BMP daily. (7) Hypertension: Goal blood pressure less than 140/ 90 mmHg with mean over 65. Blood pressure is better. Continue with metoprolol 25 mg twice daily. Chronically takes Imdur 50 mg daily, lisinopril 5 mg daily, metoprolol 100 mg twice daily along with Lasix and spironolactone. (8) Atrial fibrillation: Rate controlled. Continue with amiodarone 200 mg twice daily along with metoprolol 25 mg twice daily. Switch to oral Eliquis 5 mg twice daily. Qualifiers: Atrial fibrillation type: longstanding persistent Qualified Code(s): I48.11 - Longstanding persistent atrial fibrillation (9) Chronic anticoagulation: Previously on Eliquis, secondary to atrial fibrillation (10) Dyslipidemia: Chronically on statin Last lipid panel in 06/2020 showed total cholesterol of 180, LDL 111, HDL 25, TG 169 (11) Diabetes mellitus, type II: Insulin sliding scale at 37 units. Sliding scale insulin 6 hourly.. A1c 9.1 on 12/03/2021 Qualifiers: Diabetes mellitus complication status: with hyperglycemia Diabetes mellitus terminal gauger insulin use: with terminal gauger use Qualified Code(s): E11.65 - Type 2 diabetes mellitus with hyperglycemia; Z79.4 - terminal supervisor (current) use of insulin (12) SHERLEY (obstructive sleep apnea): Has Bipap but inconsistent use, per recent Home Health Discharge, he will report compliance but an alondra has shown use only a couple of times in last month (13) BMI 50.0-59.9, adult: Plan Lymphedema Chronically on duloxetine Chronically on vitamin C, multivitamin, vitamin D, vitamin B12 Recently discharged from home health services, last week Analgesia: Tylenol as needed Glycemic control: Lantus 37 units, sliding scale every 6 hourly Nutrition: Pulmocare tube feeds running at 20 cc/h. Increase 10 cc every 4-6 hours with goal of 50 cc/h. Free water flushes to 50 every 6 hours. CODE STATUS: Full code. PUD prophylaxis: Protonix 40 mg twice daily DVT prophylaxis: Full dose Lovenox 130 mg twice daily will suffice for DVT proph ylaxis. Discharge planning: Discussed in detail with the patient partner at bedside. Given recurrent hypoxic respiratory failure requiring high oxygen supplementation secondary to aspiration leading to left lung opacity in setting of morbid obesity, physical deconditioning patient would benefit from pulmonary and physical rehab. Patient can get best care at the [facility]. Family and patient understandable and agreeable. Case management alerted. Patient has been accepted at the [facility]. Awaiting authorization. Continue care at [facility] with telemetry. Plan for the day: Continue with cefepime as per culture results. Repeat sputum culture if and when possible. Aggressive pulmonary toilet with chest vest and incentive spirometry. Continue with nebulization with normal saline and Mucomyst. Oxygen supplementation keeping saturation over 88%. Patient's care discussed in detail with patient's sister and fianc?/DPOA in detail. All the questions were answered. We discussed that patient remains critically sick. We discussed plan for now is to continue with mechanical ventilation repeat chest x-ray in 24 hours to see if further bronchoscopy and washout is needed. Not needed can plan for trial of extubation. We also discussed for now no plans for tracheostomy until patient fails at least 1 trial of extubation. We also discussed possibility of discharge to the [facility] versus SNF once patient is medically cleared depending on need of tracheostomy or feeding tube going forward. This documentation was created by [employer] accounts payable professional software. Every effort was made to ensure accuracy of accounts payable professional. Any obvious errors or omissions should be clarified with the author of the document. Attestations Medical Necessity Statement*: Requires further hospitalization for hypoxic and hypercapnic respiratory failure in setting of recurrent aspiration pneumonia, morbid obesity, obstructive sleep apnea secondary to severe physical deconditioning while safe discharge planning is sought. Time Spent in Patient Care: Greater than 35 minutes Coding Level of Care Code Acute Wing Commander for Antonette Avila Diagnoses Acute on chronic respiratory failure with hypoxia and hypercapnia J96.21; J96.22 Encephalopathy acute G93.40 CHF (congestive heart failure) I50.33 Heart failure type: diastolic Heart failure chronicity: acute on chronic COPD (chronic obstructive pulmonary disease) J44.1 COPD type: COPD with acute exacerbation Anemia D64.9 Anemia type: unspecified type CKD stage 2 due to type 2 diabetes mellitus E11.22; N18.2 Hypertension I10 Atrial fibrillation I48.11 Atrial fibrillation type: longstanding persistent Chronic anticoagulation Z79.01 Dyslipidemia E78.5 Diabetes mellitus, type II E11.65; Z79.4 Diabetes mellitus complication status: with hyperglycemia Diabetes mellitus terminal gauger insulin use: with terminal gauger use SHERLEY (obstructive sleep apnea) G47.33 BMI 50.0-59.9, adult Z68.43
[2022-02-10 17:02] LABS: Glucose Point of Care 159 mg/dL (70-110)
[2022-02-10] MEDS: insulin lispro 100 unit/1 mL SUBCUT (17:37)
[2022-02-10] MEDS: atorvastatin 40 mg Tablet 80 MG PO (19:33)
[2022-02-10] MEDS: duloxetine 60 mg Capsule PO (19:35)
[2022-02-10] MEDS: insulin glargine 100 units/1 mL 30 UNIT SUBCUT (20:27)
[2022-02-11] VITALS (14 sets, daily range): BP systolic 104–147; BP diastolic 67–78; PULSE 74–119; RESP 16–93; TEMP 36.4–36.9; O2SAT 90–96
[2022-02-11 00:45] LABS: Glucose Point of Care 106 mg/dL (70-110)
[2022-02-11] MEDS: ipratropium-albuterol 3 mL Neb INHALATION ×4 (01:50→19:44)
[2022-02-11] MEDS: acetylcysteine 200 mg/mL SDV 4 mL 100 MG INHALATION ×5 (01:50→19:44)
[2022-02-11 04:46] LABS: Basophils % 0.4 %; Eosinophils # 0.2 10^3/uL (0.0-0.8); Hematocrit 30.5 % (42.0-52.0); Hemoglobin 8.9 g/dL (11.7-16.6); Lymphocytes # 1.9 10^3/uL (0.8-4.8); Lymphocytes % 22.3 %; Mean Corpuscular HGB Conc 29.2 g/dL (30.0-36.0); Mean Corpuscular Hemoglobin 29.1 pg (28.0-34.0); Mean Corpuscular Volume 99.7 fl (80-94); Mean Platelet Volume 12.7 fL (7.4-10.4); Monocytes # 0.9 10^3/uL (0.2-0.9); Monocytes % 10.3 %; Neutrophils # 5.52 10^3/uL (1.8-7.7); Neutrophils % 64.5 %; Nucleated Red Blood Cells % 0 %; Platelet Count 196 10^3/cmm (130-400); Red Blood Count 3.06 10^6/uL (4.1-5.3); White Blood Count 8.6 10^3/uL (4.0-10.0)
[2022-02-11 05:01] LABS: Glucose Point of Care 78 mg/dL (70-110)
[2022-02-11] MEDS: chlorhexidine gluconate 4% Btl 118 mL 1 APPLIC TOPICAL ×4 (05:22→17:09)
[2022-02-11 05:37] LABS: Alanine Aminotransferase 33 U/L (0-41); Alkaline Phosphatase 73 U/L (40-130); Aspartate Amino Transferase 31 U/L (0-40); Blood Urea Nitrogen 32 mg/dL (8-23); Calcium 8.9 mg/dL (8.5-10.5); Carbon Dioxide 39 mmol/L (22-29); Chloride 104 mmol/L (98-107); Glomerular Filtration Rate 67.8 mL/min (90-130); Glucose 86 mg/dL (65-115); Osmolality Calculated 316 mOsm/kg (285-295); Sodium 150 mmol/L (136-145); Total Bilirubin 0.3 mg/dL (0.15-1.2)
[2022-02-11] MEDS: sodium chloride 3.5% neb 4 mL Neb INHALATION ×3 (07:35→15:07)
[2022-02-11] MEDS: budesonide 0.5 mg/2 mL Neb INHALATION ×2 (07:35→19:44)
[2022-02-11] MEDS: metoprolol tartrate 25 mg Tablet PO ×2 (08:19→20:50)
[2022-02-11] MEDS: predniSONE 20 mg Tablet 40 MG PO (08:19)
[2022-02-11] MEDS: pantoprazole 40 mg SDV IVP ×2 (08:20→20:52)
[2022-02-11] MEDS: amiodarone 200 mg Tablet PO ×2 (08:20→17:08)
[2022-02-11] MEDS: docusate sodium 10 mg/mL (5ml) Liq 100 MG PO ×2 (08:20→20:51)
[2022-02-11] MEDS: ferrous gluconate 324 mg Tablet PO ×2 (08:20→17:09)
[2022-02-11] MEDS: guaiFENesin 600 mg Tablet 1200 MG PO ×2 (08:20→17:08)
[2022-02-11] MEDS: apixaban 5 mg Tablet PO ×2 (08:20→20:49)
--- NOTE | 2022-02-11 09:13 | PC.NURSE ---
Per Dr. Ricketts hold lantus this morning for blood sugar of 78.
[2022-02-11] MEDS: cefepime 1,000 MG in sodium chloride 0.9% (plus) 50 ML 100 MG IV ×2 (09:31→22:35)
[2022-02-11] MEDS: dextrose 5% 1,000 ML 75 ML IV ×2 (10:36→22:37)
[2022-02-11] MEDS: insulin lispro 100 unit/1 mL SUBCUT ×3 (12:07→23:07)
[2022-02-11 12:09] LABS: Glucose Point of Care 168 mg/dL (70-110)
--- NOTE | 2022-02-11 13:08 | PM.PN ---
Subjective Subjective: No acute events overnight. Today morning again seen sitting in bariatric chair on 8 L high flow nasal cannula saturating more than 95%. Patient states he is feeling the same. Denies any new complaints. Has remained hemodynamically stable and afebrile otherwise. Medications: Reviewed: Yes Vitals/I&O/Wt Last Vital Signs Temp 97.7 F 02/11/22 12:00 Pulse 93 02/11/22 12:00 Resp 93 H 02/11/22 12:00 BP 114/67 02/11/22 12:00 Pulse Ox 96 02/11/22 12:00 O2 Del Method 02/11/22 11:23 O2 Flow Rate 8 02/11/22 11:23 FiO2 40 02/11/22 01:51 02/10/22 02/11/22 02/11/22 22:59 06:59 14:59 Intake Total 220 / 460 310 / 310 Output Total 1100 / 1100 600 / 1700 Balance -880 / -640 -600 / -1240 310 / 310 Weight last 48 hrs Weight 186.001 kg Weight 190.509 kg Physical Exam Narrative: No acute distress, morbidly obese Const: GENERAL APPEARANCE: cooperative, comfortable, well developed and disheveled NUTRITIONAL APPEARANCE: obese morbidly obese Neck/C-Spine: OTHER: Thick LIJ CVC Resp: AUSCULTATION: rhonchi and diminished lung sounds on the left Cardio: COMMON NORMALS: regular rhythm, S1 normal heart sound present, S2 normal heart sound present and No murmurs present (Cardio) RATE: tachycardic RHYTHM: regular rhythm HEART SOUNDS: S1 normal heart sound present and S2 normal heart sound present OTHER: Irregularly irregular with occasional tachycardia GI: COMMON NORMALS: Normal to inspection, nondistended, normoactive bowel sounds present and Soft to palpation PALPATION: Yes Soft to palpation OTHER: Large pannus Extremity: COMMON NORMALS: no joint enlargement GENERAL: Yes edema (trace, difficult to assess) Skin: OTHER: BL chronic stasis changes Urinary Catheter Management: Lord: Cath Placed During This Visit: no Reason for Continuing Indwelling Catheter: Acute Urinary Retention or Obstruction Data : 02/11/22 03:59 02/11/22 03:59 A&P Assessment and plan (1) Acute on chronic respiratory failure with hypoxia and hypercapnia: Secondary to a combination of mucous plugging causing whiteout of left lung secondary to pneumonia, COPD exacerbation, obstructive sleep apnea. Post bronchoscopy and washout. Extubated on 02/07. Sputum culture consistent with Acinetobacter. MRSA negative. Repeat Sputum Cx sent. Switch antibiotics to cefepime to finish a 14-day course. Last dose on 02/13. Repeat chest x-ray shows improvement in left lung opacity. Echocardiogram results appreciated. Normal EF of 55 to 60%, RVSP of 25 mmHg, difficult to assess diastolic function given atrial fibrillation. Aggressive pulmonary toilet with chest vest. Incentive spirometry. DuoNebs every 4 hour, budesonide twice daily. Continue with acetylcysteine and hypertonic saline nebulization. Continue with oral prednisone weaning. Out of bed to chair. Advance diet as per speech therapy. Physical therapy. BiPAP nightly. (2) Mucus plugging of bronchi: (3) Pneumonia due to Acinetobacter species: (4) Aspiration pneumonia: (5) SHERLEY (obstructive sleep apnea): Has Bipap but inconsistent use, per recent Home Health Discharge, he will report compliance but an alondra has shown use only a couple of times in last month (6) COPD (chronic obstructive pulmonary disease): Chronically on oxygen generally at 4L bnc at rest but lately requiring 6L. Treatment as above. Qualifiers: COPD type: COPD with acute exacerbation Qualified Code(s): J44.1 - Chronic obstructive pulmonary disease with (acute) exacerbation (7) Hypernatremia: Most likely secondary to poor oral intake. Patient is around 11 L negative since admission. Having episodes of hypoglycemia. Start on D5W at 100 cc an hour. Repeat BMP in evening. (8) Hypoglycemia: History of type 2 diabetes mellitus. Most likely secondary to poor oral intake and evening of steroids. D5W as above. Steroid tapering. Decreased Lantus to 30 units twice daily. Holding off on morning dose. We will continue to monitor. Switch to insulin sliding scale low-dose protocol. (9) CHF (congestive heart failure): Acute on chronic. Appreciate echocardiogram results as above. Hold off on diuresis for now. Patient overall more than 11 L negative. Qualifiers: Heart failure type: diastolic Heart failure chronicity: acute on chronic Qualified Code(s): I50.33 - Acute on chronic diastolic (congestive) heart failure (10) Encephalopathy acute: Most likely secondary to hypoxia and hypercapnia. Cannot rule out encephalopathy secondary to pneumonia. Resolved. Continue with home dose of duloxetine. Continue with sedation. We will plan for gradual weaning. (11) Anemia: Chronic macrocytic anemia with baseline hemoglobin around 10. Appreciate vitamin B12 folate levels. Start on oral iron supplementation. Qualifiers: Anemia type: unspecified type Qualified Code(s): D64.9 - Anemia, unspecified (12) CKD stage 2 due to type 2 diabetes mellitus: Baseline creatinine around 1.1. Currently stable. Monitor fluid status daily. Hold off on any further diuresis or IV fluids for now. Medical reconciliation done for nephrotoxic drugs. Monitor BMP daily. (13) Hypertension: Goal blood pressure less than 140/ 90 mmHg with mean over 65. Blood pressure is better. Continue with metoprolol 25 mg twice daily. Chronically takes Imdur 50 mg daily, lisinopril 5 mg daily, metoprolol 100 mg twice daily along with Lasix and spironolactone. (14) Atrial fibrillation: Rate controlled. Continue with amiodarone 200 mg twice daily along with metoprolol 25 mg twice daily. Switch to oral Eliquis 5 mg twice daily. Qualifiers: Atrial fibrillation type: longstanding persistent Qualified Code(s): I48.11 - Longstanding persistent atrial fibrillation (15) Chronic anticoagulation: Previously on Eliquis, secondary to atrial fibrillation (16) Diabetes mellitus, type II: Insulin sliding scale as above. A1c 9.1 on 12/03/2021 Qualifiers: Diabetes mellitus complication status: with hyperglycemia Diabetes mellitus longterm insulin use: with filler leaf cutter long use Qualified Code(s): E11.65 - Type 2 diabetes mellitus with hyperglycemia; Z79.4 - MCC (current) use of insulin (17) Goals of care, counseling/discussion: Plan Lymphedema Chronically on duloxetine Chronically on vitamin C, multivitamin, vitamin D, vitamin B12 Recently discharged from home health services, last week Analgesia: Tylenol as needed Glycemic control: Lantus 37 units, sliding scale every 6 hourly Nutrition: Pulmocare tube feeds running at 20 cc/h. Increase 10 cc every 4-6 hours with goal of 50 cc/h. Free water flushes to 50 every 6 hours. CODE STATUS: Full code. PUD prophylaxis: Protonix 40 mg twice daily DVT prophylaxis: Full dose Lovenox 130 mg twice daily will suffice for DVT prophylaxis. Discharge planning: Discussed in detail with the patient partner at bedside. Given recurrent hypoxic respiratory failure requiring high oxygen supplementation secondary to aspiration leading to left lung opacity in setting of morbid obesity, physical deconditioning patient would benefit from pulmonary and physical rehab. [facility] Family and patient understandable and agreeable. Case management alerted. [facility]. Awaiting authorization. Continue care at [facility] with telemetry. Patient's care discussed in detail with patient's sister and fianc?/DPOA in detail. All the questions were answered. We discussed that patient remains critically sick. We discussed plan for now is to continue with mechanical ventilation repeat chest x-ray in 24 hours to see if further bronchoscopy and washout is needed. Not needed can plan for trial of extubation. We also discussed for now no plans for tracheostomy until patient fails at least 1 trial of extubation. We also discussed possibility of [facility]F once patient is medically cleared depending on need of tracheostomy or feeding tube going forward. This documentation was created by [employer] shake cutter software. Every effort was made to ensure accuracy of shake cutter. Any obvious errors or omissions should be clarified with the author of the document. Attestations Medical Necessity Statement*: Requires further hospitalization for management of hypoxic and hypercapnic respiratory failure secondary to Acetobacter pneumonia from aspiration pneumonia leading to mucous plugging in a patient with obstructive sleep apnea, morbidly obese, hypernatremia Time Spent in Patient Care: Greater than 35 minutes Coding Level of Care Code Acute Sea Kayaking Guide for Chg Fwd Diagnoses Acute on chronic respiratory failure with hypoxia and hypercapnia J96.21; J96.22 Mucus plugging of bronchi [id number] Pneumonia due to Acinetobacter species J15.8 Aspiration pneumonia J69.0 SHERLEY (obstructive sleep apnea) G47.33 COPD (chronic obstructive pulmonary disease) J44.1 COPD type: COPD with acute exacerbation Hypernatremia E87.0 Hypoglycemia E16.2 CHF (congestive heart failure) I50.33 Heart failure type: diastolic Heart failure chronicity: acute on chronic Encephalopathy acute G93.40 Anemia D64.9 Anemia type: unspecified type CKD stage 2 due to type 2 diabetes mellitus E11.22; N18.2 Hypertension I10 Atrial fibrillation I48.11 Atrial fibrillation type: longstanding persistent Chronic anticoagulation Z79.01 Diabetes mellitus, type II E11.65; Z79.4 Diabetes mellitus complication status: with hyperglycemia Diabetes mellitus longterm insulin use: with filler leaf cutter long use Goals of care, counseling/discussion Z71.89
[2022-02-11] MEDS: calcium carbonate 500 mg Chew Tablet PO (16:14)
[2022-02-11] MEDS: nystatin powder 15 gm Btl 1 APPLIC TOPICAL (17:09)
[2022-02-11 17:31] LABS: Glucose Point of Care 183 mg/dL (70-110)
[2022-02-11 19:05] LABS: Anion Gap 8.4 (5-19); Blood Urea Nitrogen 31 mg/dL (8-23); Calcium 9.4 mg/dL (8.5-10.5); Carbon Dioxide 37 mmol/L (22-29); Chloride 96 mmol/L (98-107); Glomerular Filtration Rate 75.7 mL/min (90-130); Glucose 206 mg/dL (65-115); Osmolality Calculated 297 mOsm/kg (285-295); Potassium 4.4 mmol/L (3.5-5.1); Sodium 137 mmol/L (136-145)
[2022-02-11] MEDS: duloxetine 60 mg Capsule PO (20:49)
[2022-02-11] MEDS: atorvastatin 40 mg Tablet 80 MG PO (20:50)
[2022-02-11] MEDS: insulin glargine 100 units/1 mL 30 UNIT SUBCUT (22:37)
[2022-02-11 22:49] LABS: Glucose Point of Care 157 mg/dL (70-110)
[2022-02-12] VITALS (32 sets, daily range): BP systolic 113–133; BP diastolic 76–87; PULSE 76–118; RESP 3–125; TEMP 36.5–36.6; O2SAT 92–100
[2022-02-12] MEDS: ipratropium-albuterol 3 mL Neb INHALATION ×4 (02:37→19:21)
[2022-02-12] MEDS: acetylcysteine 200 mg/mL SDV 4 mL 100 MG INHALATION ×6 (02:38→19:21)
[2022-02-12 04:40] LABS: Basophils % 0.3 %; Eosinophils # 0.2 10^3/uL (0.0-0.8); Eosinophils % 1.6 %; Hematocrit 31.6 % (42.0-52.0); Hemoglobin 9.3 g/dL (11.7-16.6); Lymphocytes # 1.9 10^3/uL (0.8-4.8); Lymphocytes % 17.1 %; Mean Corpuscular HGB Conc 29.4 g/dL (30.0-36.0); Mean Corpuscular Hemoglobin 29.3 pg (28.0-34.0); Mean Corpuscular Volume 99.7 fl (80-94); Mean Platelet Volume 11.8 fL (7.4-10.4); Monocytes # 0.9 10^3/uL (0.2-0.9); Monocytes % 7.8 %; Neutrophils # 8.14 10^3/uL (1.8-7.7); Neutrophils % 72.8 %; Nucleated Red Blood Cells % 0 %; Platelet Count 198 10^3/cmm (130-400); Red Blood Count 3.17 10^6/uL (4.1-5.3); Red Cell Distribution Width 14.7 % (12.1-15.1); White Blood Count 11.2 10^3/uL (4.0-10.0)
[2022-02-12 04:51] LABS: Glucose Point of Care 143 mg/dL (70-110)
[2022-02-12 05:12] LABS: Alanine Aminotransferase 39 U/L (0-41); Albumin Level 3.1 g/dL (3.5-5.2); Alkaline Phosphatase 76 U/L (40-130); Anion Gap 9.9 (5-19); Aspartate Amino Transferase 33 U/L (0-40); Blood Urea Nitrogen 27 mg/dL (8-23); Calcium 8.9 mg/dL (8.5-10.5); Carbon Dioxide 38 mmol/L (22-29); Chloride 103 mmol/L (98-107); Globulin 3.1 g/dL (1.3-4.6); Glomerular Filtration Rate 67.8 mL/min (90-130); Glucose 108 mg/dL (65-115); Osmolality Calculated 310 mOsm/kg (285-295); Potassium 3.9 mmol/L (3.5-5.1); Sodium 147 mmol/L (136-145); Total Bilirubin 0.3 mg/dL (0.15-1.2); Total Protein 6.2 g/dL (6.6-8.7)
[2022-02-12] MEDS: sodium chloride 3.5% neb 4 mL Neb INHALATION ×6 (08:11→19:21)
[2022-02-12] MEDS: budesonide 0.5 mg/2 mL Neb INHALATION ×2 (08:11→19:21)
--- NOTE | 2022-02-12 09:16 | PC.SOCIAL ---
IMM Update Pg. 2 of IMM updated and reviewed with patient. Copy provided. Initialed, dated, and timed copy in chart.
[2022-02-12] MEDS: apixaban 5 mg Tablet PO ×2 (09:29→21:20)
[2022-02-12] MEDS: ferrous gluconate 324 mg Tablet PO ×2 (09:29→17:35)
[2022-02-12] MEDS: predniSONE 20 mg Tablet PO (09:29)
[2022-02-12] MEDS: pantoprazole 40 mg SDV IVP ×2 (09:29→20:43)
[2022-02-12] MEDS: metoprolol tartrate 25 mg Tablet PO ×2 (09:30→21:21)
[2022-02-12] MEDS: guaiFENesin 600 mg Tablet 1200 MG PO ×2 (09:30→17:35)
[2022-02-12] MEDS: amiodarone 200 mg Tablet PO ×2 (09:30→17:35)
[2022-02-12] MEDS: insulin glargine 100 units/1 mL 30 UNIT SUBCUT ×2 (09:31→21:21)
[2022-02-12] MEDS: nystatin powder 15 gm Btl 1 APPLIC TOPICAL ×2 (09:31→17:36)
[2022-02-12] MEDS: docusate sodium 10 mg/mL (5ml) Liq 100 MG PO ×2 (09:31→21:21)
[2022-02-12] MEDS: cefepime 1,000 MG in sodium chloride 0.9% (plus) 50 ML 100 MG IV ×2 (11:07→22:25)
[2022-02-12] MEDS: dextrose 5% 1,000 ML 75 ML IV ×2 (11:08→23:03)
[2022-02-12 11:20] LABS: Glucose Point of Care 152 mg/dL (70-110)
--- NOTE | 2022-02-12 12:48 | P.PN_ITS ---
Subjective Subjective: Seen this morning. Patient states he would like to have his Lord catheter removed and would like to get up. It hurt. He does not want to use a bedside commode at this time. He states he feels like he has to have a bowel movement but will not use the bedpan. Patient is awaiting insurance auth orization for select. Sodium 147 today. at bedside. To describe some redness at pannus area. Last of antibiotics is 02/13/2022. He states he feels the same as yesterday and has not improved or worsened. On 6 L nasal cannula at this time. Vitals/I&O/Wt Last Vital Signs Temp 97.7 F 02/12/22 04:00 Pulse 88 02/12/22 11:25 Resp 20 H 02/12/22 11:25 BP 125/87 02/12/22 04:00 Pulse Ox 98 02/12/22 11:25 O2 Del Method 02/12/22 11:25 O2 Flow Rate 6 02/12/22 11:25 FiO2 40 02/12/22 00:18 02/11/22 02/12/22 02/12/22 22:59 06:59 14:59 Intake Total 1951.417 / 2261.417 50 / 2311.417 938.75 / 938.75 Output Total 950 / 950 550 / 1500 Balance 1001.417 / 1311.417 -500 / 811.417 938.75 / 938.75 Weight last 48 hrs Weight 184.839 kg Weight 186.001 kg Physical Exam Narrative: No acute distress, morbidly obese Const: GENERAL APPEARANCE: cooperative, comfortable, well developed and disheveled NUTRITIONAL APPEARANCE: obese morbidly obese Neck/C-Spine: OTHER: Thick LIJ CVC Resp: AUSCULTATION: rhonchi and diminished lung sounds on the left Cardio: COMMON NORMALS: regular rhythm, S1 normal heart sound present, S2 normal heart sound present and No murmurs present (Cardio) RATE: tachycardic RHYTHM: regular rhythm HEART SOUNDS: S1 normal heart sound present and S2 normal heart sound present OTHER: Irregularly irregular with occasional tachycardia GI: COMMON NORMALS: Normal to inspection, nondistended, normoactive bowel sounds present and Soft to palpation PALPATION: Yes Soft to palpation OTHER: Large pannus Extremity: COMMON NORMALS: no joint enlargement GENERAL: Yes edema (trace, difficult to assess) Skin: OTHER: BL chronic stasis changes Urinary Catheter Management: Lord: Cath Placed During This Visit: no Reason for Continuing Indwelling Catheter: Acute Urinary Retention or Obstruction Data : 02/12/22 04:15 02/12/22 04:15 Micro: Microbiology 02/10/22 13:30 Sputum Culture - Preliminary Sputum - Expectorated Sputum Gram Negative Rods A&P Assessment and plan (1) Acute on chronic respiratory failure with hypoxia and hypercapnia: Secondary to a combination of mucous plugging causing whiteout of left lung secondary to pneumonia, COPD exacerbation, obstructive sleep apnea. Post bronchoscopy and washout. Extubated on 02/07. Sputum culture consistent with Acinetobacter. MRSA negative. Repeat Sputum Cx sent. Switch antibiotics to cefepime to finish a 14-day course. Last dose on 02/13. Repeat chest x-ray shows improvement in left lung opacity. Echocardiogram results appreciated. Normal EF of 55 to 60%, RVSP of 25 mmHg, difficult to assess diastolic function given atrial fibrillation. Aggressive pulmonary toilet with chest vest. Incentive spirometry. DuoNebs every 4 hour, budesonide twice daily. Continue with acetylcysteine and hypertonic saline nebulization. Continue with oral prednisone weaning. Out of bed to chair. Advance diet as per speech therapy. Physical therapy. BiPAP nightly. (2) Mucus plugging of bronchi: (3) Pneumonia due to Acinetobacter species: (4) Aspiration pneumonia: (5) SHERLEY (obstructive sleep apnea): Has Bipap but inconsistent use, per recent Home Health Discharge, he will report compliance but an alondra has shown use only a couple of times in last month (6) COPD (chronic obstructive pulmonary disease): Chronically on oxygen generally at 4L bnc at rest but lately requiring 6L. Treatment as above. Qualifiers: COPD type: COPD with acute exacerbation Qualified Code(s): J44.1 - C hronic obstructive pulmonary disease with (acute) exacerbation (7) Hypernatremia: Most likely secondary to poor oral intake. Patient is around 11 L negative since admission. Having episodes of hypoglycemia. Start on D5W at 100 cc an hour. Repeat BMP in evening. (8) Hypoglycemia: History of type 2 diabetes mellitus. Most likely secondary to poor oral intake and evening of steroids. D5W as above. Steroid tapering. Decreased Lantus to 30 units twice daily. Holding off on morning dose. We will continue to monitor. Switch to insulin sliding scale low-dose protocol. (9) CHF (congestive heart failure): Acute on chronic. Appreciate echocardiogram results as above. Hold off on diuresis for now. Patient overall more than 11 L negative. Qualifiers: Heart failure type: diastolic Heart failure chronicity: acute on chronic Qualified Code(s): I50.33 - Acute on chronic diastolic (congestive) heart failure (10) Encephalopathy acute: Most likely secondary to hypoxia and hypercapnia. Cannot rule out encephalopathy secondary to pneumonia. Resolved. Continue with home dose of duloxetine. Continue with sedation. We will plan for gradual weaning. (11) Anemia: Chronic macrocytic anemia with baseline hemoglobin around 10. Appreciate vitamin B12 folate levels. Start on oral iron supplementation. Qualifiers: Anemia type: unspecified type Qualified Code(s): D64.9 - Anemia, unspecified (12) CKD stage 2 due to type 2 diabetes mellitus: Baseline creatinine around 1.1. Currently stable. Monitor fluid status daily. Hold off on any further diuresis or IV fluids for now. Medical reconciliation done for nephrotoxic drugs. Monitor BMP daily. (13) Hypertension: Goal blood pressure less than 140/ 90 mmHg with mean over 65. Blood pressure is better. Continue with metoprolol 25 mg twice daily. Chronically takes Imdur 50 mg daily, lisinopril 5 mg daily, metoprolol 100 mg twice daily along with Lasix and spironolactone. (14) Atrial fibrillation: Rate controlled. Continue with amiodarone 200 mg twice daily along with metoprolol 25 mg twice daily. Switch to oral Eliquis 5 mg twice daily. Qualifiers: Atrial fibrillation type: longstanding persistent Qualified Code(s): I48.11 - Longstanding persistent atrial fibrillation (15) Chronic anticoagulation: Previously on Eliquis, secondary to atrial fibrillation (16) Diabetes mellitus, type II: Insulin sliding scale as above. 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 Discontinue Lord catheter as per patient request. We will begin voiding trial. We will continue check bladder scan as needed. If patient were to start retaining we will replace Lord. Analgesia: Tylenol as needed Glycemic control: Lantus 37 units, sliding scale every 6 hourly Nutrition: Dysphagia level 5 diet. CODE STATUS: Full code. PUD prophylaxis: Protonix 40 mg twice daily DVT prophylaxis: Continue on Eliquis Discharge planning: Discussed in detail with the patient partner at bedside. Given recurrent hypoxic respiratory failure requiring high oxygen supplementation secondary to aspiration leading to left lung opacity in setting of morbid obesity, physical deconditioning patient would benefit from pulmonary and physical rehab. Patient can get best care at [facility]. Family and patient understandable and agreeable. Case management alerted. Patient has been accepted at [facility]. Awaiting authorization. Continue care at [facility] with telemetry. This documentation was created by [employer] source inspector software. Every effort was made to ensure accuracy of source inspector. Any obvious errors or omissions should be clarified with the author of the document. Attestations Medical Necessity Statement*: Requires further hospitalization for management of hypoxic and hypercapnic respiratory failure secondary to Acetobacter pneumonia from aspiration pneumonia leading to mucous plugging in a patient with obstructive sleep apnea, morbidly obese, hypernatremia Time Spent in Patient Care: Greater than 35 minutes Coding Level of Care Code Acute Supervisor [place] [employer] for Chg Fwd Diagnoses Acute on chronic respiratory failure with hypoxia and hypercapnia J96.21; J96.22 Mucus plugging of bronchi T17.500A Pneumonia due to Acinetobacter species J15.8 Aspiration pneumonia J69.0 SHERLEY (obstructive sleep apnea) G47.33 COPD (chronic obstructive pulmonary disease) J44.1 COPD type: COPD with acute exacerbation Hypernatremia E87.0 Hypoglycemia E16.2 CHF (congestive heart failure) I50.33 Heart failure type: diastolic Heart failure chronicity: acute on chronic Encephalopathy acute G93.40 Anemia D64.9 Anemia type: unspecified type CKD stage 2 due to type 2 diabetes mellitus E11.22; N18.2 Hypertension I10 Atrial fibrillation I48.11 Atrial fibrillation type: longstanding persistent Chronic anticoagulation Z79.01 Diabetes mellitus, type II E11.65; Z79.4 Diabetes mellitus complication status: with hyperglycemia Diabetes mellitus longterm insulin use: with terminal carman use Goals of care, counseling/discussion Z71.89
[2022-02-12] MEDS: insulin lispro 100 unit/1 mL SUBCUT ×2 (13:11→17:35)
[2022-02-12] MEDS: lactulose oral liq 20 gm/30 mL UDC PO (13:11)
[2022-02-12 16:44] LABS: Glucose Point of Care 150 mg/dL (70-110)
[2022-02-12 20:55] LABS: Glucose Point of Care 188 mg/dL (70-110)
[2022-02-12] MEDS: duloxetine 60 mg Capsule PO (21:21)
[2022-02-12] MEDS: atorvastatin 40 mg Tablet 80 MG PO (21:21)
[2022-02-12] MEDS: artificial tears Op Oint 3.5 gm 1 APPLIC EYE-BOTH (21:34)
[2022-02-12 23:57] LABS: Glucose Point of Care 112 mg/dL (70-110)
[2022-02-13] VITALS (35 sets, daily range): BP systolic 102–141; BP diastolic 68–91; PULSE 0–132; RESP 13–28; TEMP 36.4–37.1; O2SAT 90–96
[2022-02-13] MEDS: lactulose oral liq 20 gm/30 mL UDC PO ×2 (00:23→12:44)
[2022-02-13] MEDS: acetylcysteine 200 mg/mL SDV 4 mL 100 MG INHALATION (02:47)
[2022-02-13] MEDS: ipratropium-albuterol 3 mL Neb INHALATION ×4 (02:47→20:19)
[2022-02-13] MEDS: sodium chloride 3.5% neb 4 mL Neb INHALATION ×3 (03:22→20:18)
[2022-02-13 05:24] LABS: Basophils # 0.1 10^3/uL (0.0-0.1); Basophils % 0.4 %; Eosinophils # 0.2 10^3/uL (0.0-0.8); Eosinophils % 1.7 %; Hematocrit 31.2 % (42.0-52.0); Hemoglobin 9.1 g/dL (11.7-16.6); Lymphocytes # 1.8 10^3/uL (0.8-4.8); Lymphocytes % 12.9 %; Mean Corpuscular HGB Conc 29.2 g/dL (30.0-36.0); Mean Corpuscular Hemoglobin 29.2 pg (28.0-34.0); Mean Platelet Volume 12.1 fL (7.4-10.4); Monocytes # 0.9 10^3/uL (0.2-0.9); Monocytes % 6.1 %; Neutrophils # 10.93 10^3/uL (1.8-7.7); Neutrophils % 78.5 %; Nucleated Red Blood Cells % 0 %; Platelet Count 173 10^3/cmm (130-400); Red Blood Count 3.12 10^6/uL (4.1-5.3); Red Cell Distribution Width 14.6 % (12.1-15.1); White Blood Count 13.9 10^3/uL (4.0-10.0)
[2022-02-13 05:52] LABS: Anion Gap 9.8 (5-19); Blood Urea Nitrogen 19 mg/dL (8-23); Calcium 8.8 mg/dL (8.5-10.5); Carbon Dioxide 36 mmol/L (22-29); Chloride 102 mmol/L (98-107); Glomerular Filtration Rate 75.7 mL/min (90-130); Glucose 118 mg/dL (65-115); Osmolality Calculated 301 mOsm/kg (285-295); Potassium 3.8 mmol/L (3.5-5.1); Sodium 144 mmol/L (136-145)
[2022-02-13 05:54] LABS: Glucose Point of Care 121 mg/dL (70-110)
[2022-02-13] MEDS: apixaban 5 mg Tablet PO ×2 (09:14→21:05)
[2022-02-13] MEDS: ferrous gluconate 324 mg Tablet PO ×2 (09:14→17:10)
[2022-02-13] MEDS: metoprolol tartrate 25 mg Tablet PO ×2 (09:14→21:05)
[2022-02-13] MEDS: amiodarone 200 mg Tablet PO ×2 (09:14→17:10)
[2022-02-13] MEDS: pantoprazole 40 mg SDV IVP ×2 (09:14→21:05)
[2022-02-13] MEDS: guaiFENesin 600 mg Tablet 1200 MG PO ×2 (09:15→17:10)
[2022-02-13] MEDS: predniSONE 20 mg Tablet PO (09:15)
[2022-02-13] MEDS: docusate sodium 10 mg/mL (5ml) Liq 100 MG PO (09:17)
[2022-02-13] MEDS: insulin glargine 100 units/1 mL 30 UNIT SUBCUT ×2 (09:17→22:36)
[2022-02-13] MEDS: nystatin powder 15 gm Btl 1 APPLIC TOPICAL ×2 (09:18→17:13)
[2022-02-13] MEDS: cefepime 1,000 MG in sodium chloride 0.9% (plus) 50 ML 100 MG IV ×2 (10:02→22:37)
[2022-02-13] MEDS: dextrose 5% 1,000 ML 75 ML IV ×2 (11:30→22:36)
[2022-02-13 11:42] LABS: Glucose Point of Care 171 mg/dL (70-110)
[2022-02-13] MEDS: insulin lispro 100 unit/1 mL SUBCUT ×2 (12:44→18:07)
[2022-02-13 13:59] LABS: Glucose Point of Care 153 mg/dL (70-110)
--- NOTE | 2022-02-13 16:34 | P.PN_ITS ---
Subjective Subjective: seen this am pt did not wear bipap overnight properly and kept pulling it off significant other present at bedside patient states he feels about the same as yesterday does desaturate upon movement. i increased his o2 to 8L. He desats on 6L at rest. Vitals/I&O/Wt Last Vital Signs Temp 98.1 F 02/13/22 11:47 Pulse 102 H 02/13/22 14:06 Resp 18 02/13/22 14:00 BP 126/85 02/13/22 11:47 Pulse Ox 92 02/13/22 14:00 O2 Del Method 02/13/22 14:00 O2 Flow Rate 8 02/13/22 14:00 FiO2 40 02/13/22 02:48 02/13/22 02/13/22 02/13/22 06:59 14:59 22:59 Intake Total 1013.75 / 2772.50 983.75 / 983.75 Output Total 650 / 1550 Balance 363.75 / 1222.50 983.75 / 983.75 Weight last 48 hrs Weight 184.839 kg Physical Exam Narrative: No acute distress, morbidly obese Const: GENERAL APPEARANCE: cooperative, comfortable, well developed and disheveled NUTRITIONAL APPEARANCE: obese morbidly obese Resp: AUSCULTATION: rhonchi and diminished lung sounds on the left Cardio: COMMON NORMALS: regular rhythm, S1 normal heart sound present, S2 normal heart sound present and No murmurs present (Cardio) RATE: tachycardic RHYTHM: regular rhythm HEART SOUNDS: S1 normal heart sound present and S2 normal heart sound present OTHER: Irregularly irregular with occasional tachycardia GI: COMMON NORMALS: Normal to inspection, nondistended, normoactive bowel sounds present and Soft to palpation PALPATION: Yes Soft to palpation OTHER: Large pannus Extremity: COMMON NORMALS: no joint enlargement GENERAL: Yes edema (trace, difficult to assess) Skin: OTHER: BL chronic stasis changes Urinary Catheter Management: [place]: Cath Placed During This Visit: no Reason for Continuing Indwelling Catheter: Acute Urinary Retention or Obstruction Data : 02/13/22 05:05 02/13/22 05:05 Micro: Microbiology 02/10/22 13:30 Gram Stain - Final Sputum - Expectorated Sputum Sputum Culture - Preliminary Gram Negative Rods 02/12/22 20:30 Occult Blood (FIT) - Final Stool Routine Collection A&P Assessment and plan (1) Acute on chronic respiratory failure with hypoxia and hypercapnia: Secondary to a combination of mucous plugging causing whiteout of left lung secondary to pneumonia, COPD exacerbation, obstructive sleep apnea. Post bronchoscopy and washout. Extubated on 02/07. Sputum culture consistent with Acinetobacter. MRSA negative. Repeat Sputum Cx sent. Switch antibiotics to cefepime to finish a 14-day course. Last dose on 02/13. Repeat chest x-ray shows improvement in left lung opacity. Echocardiogram results appreciated. Normal EF of 55 to 60%, RVSP of 25 mmHg, difficult to assess diastolic function given atrial fibrillation. Aggressive pulmonary toilet with chest vest. Incentive spirometry. DuoNebs every 4 hour, budesonide twice daily. Continue with acetylcysteine and hypertonic saline nebulization. Continue with oral prednisone weaning. Out of bed to chair. Advance diet as per speech therapy. Physical therapy. BiPAP nightly. (2) Mucus plugging of bronchi: (3) Pneumonia due to Acinetobacter species: (4) Aspiration pneumonia: (5) SHERLEY (obstructive sleep apnea): Has Bipap but inconsistent use, per recent Home Health Discharge, he will report compliance but an alondra has shown use only a couple of times in last month (6) COPD (chronic obstructive pulmonary disease): Chronically on oxygen generally at 4L bnc at rest but lately requiring 6L. Treatment as above. Qualifiers: COPD type: COPD with acute exacerbation Qualified Code(s): J44.1 - Ch ronic obstructive pulmonary disease with (acute) exacerbation (7) Hypernatremia: Most likely secondary to poor oral intake. Patient is around 11 L negative since admission. Having episodes of hypoglycemia. Start on D5W at 100 cc an hour. Repeat BMP in evening. (8) Hypoglycemia: History of type 2 diabetes mellitus. Most likely secondary to poor oral intake and evening of steroids. D5W as above. Steroid tapering. Decreased Lantus to 30 units twice daily. Holding off on morning dose. We will continue to monitor. Switch to insulin sliding scale low-dose protocol. (9) CHF (congestive heart failure): Acute on chronic. Appreciate echocardiogram results as above. Hold off on diuresis for now. Patient overall more than 11 L negative. Qualifiers: Heart failure type: diastolic Heart failure chronicity: acute on chronic Qualified Code(s): I50.33 - Acute on chronic diastolic (congestive) heart failure (10) Encephalopathy acute: Most likely secondary to hypoxia and hypercapnia. Cannot rule out encephalopathy secondary to pneumonia. Resolved. Continue with home dose of duloxetine. Continue with sedation. We will plan for gradual weaning. (11) Anemia: Chronic macrocytic anemia with baseline hemoglobin around 10. Appreciate vitamin B12 folate levels. Start on oral iron supplementation. Qualifiers: Anemia type: unspecified type Qualified Code(s): D64.9 - Anemia, unspecified (12) CKD stage 2 due to type 2 diabetes mellitus: Baseline creatinine around 1.1. Currently stable. Monitor fluid status daily. Hold off on any further diuresis or IV fluids for now. Medical reconciliation done for nephrotoxic drugs. Monitor BMP daily. (13) Hypertension: Goal blood pressure less than 140/ 90 mmHg with mean over 65. Blood pressure is better. Continue with metoprolol 25 mg twice daily. Chronically takes Imdur 50 mg daily, lisinopril 5 mg daily, metoprolol 100 mg twice daily along with Lasix and spironolactone. (14) Atrial fibrillation: Rate controlled. Continue with amiodarone 200 mg twice daily along with metoprolol 25 mg twice daily. Switch to oral Eliquis 5 mg twice daily. Qualifiers: Atrial fibrillation type: longstanding persistent Qualified Code(s): I48.11 - Longstanding persistent atrial fibrillation (15) Chronic anticoagulation: Previously on Eliquis, secondary to atrial fibrillation (16) Diabetes mellitus, type II: Insulin sliding scale as above. A1c 9.1 on 12/03/2021 Qualifiers: Diabetes mellitus complication status: with hyperglycemia Diabetes mellitus intermediate insulin use: with intermediate use Qualified Code(s): E11.65 - Type 2 diabetes mellitus with hyperglycemia; Z79.4 - USP (current) use of insulin (17) Goals of care, counseling/discussion: Plan Lymphedema Chronically on duloxetine Chronically on vitamin C, multivitamin, vitamin D, vitamin B12 Recently discharged from home health services, last week Constipation: Start on lactulose twice daily. Keep monterroso for now. Patient severely deconditioned. Attempts to work with physical therapy however cannot do much. He is significantly weak and definitely will need rehab. O2 requirements 8L at rest. On exertion or any movement, does desaturate. Analgesia: Tylenol as needed Glycemic control: Lantus 37 units, sliding scale every 6 hourly Nutrition: Dysphagia level 5 diet. CODE STATUS: Full code. PUD prophylaxis: Protonix 40 mg twice daily DVT prophylaxis: Continue on Eliquis Discharge planning: Discussed in detail with the patient partner at bedside. Given recurrent hypoxic respiratory failure requiring high oxygen supplementation secondary to aspiration leading to left lung opacity in setting of morbid obesity, physical deconditioning patient would benefit from pulmonary and physical rehab. Patient can get best care at [facility]. Family and patient understandable and agreeable. Case management alerted. Patient has been accepted at [facility]. Awaiting authorization. Continue care at [facility] with telemetry. This documentation was created by [employer] chief optometry service software. Every effort was made to ensure accuracy of chief optometry service. Any obvious errors or omissions should be clarified with the author of the document. Attestations Medical Necessity Statement*: Requires further hospitalization for management of hypoxic and hypercapnic respiratory failure secondary to Acetobacter pneumonia from aspiration pneumonia leading to mucous plugging in a patient with obstructive sleep apnea, morbidly obese, hypernatremia Time Spent in Patient Care: Greater than 35 minutes Coding Level of Care Code Acute Leather [employer]cher for Chg Fwd Diagnoses Acute on chronic respiratory failure with hypoxia and hypercapnia J96.21; J96.22 Mucus plugging of bronchi T17.500A Pneumonia due to Acinetobacter species J15.8 Aspiration pneumonia J69.0 SHERLEY (obstructive sleep apnea) G47.33 COPD (chronic obstructive pulmonary disease) J44.1 COPD type: COPD with acute exacerbation Hypernatremia E87.0 Hypoglycemia E16.2 CHF (congestive heart failure) I50.33 Heart failure type: diastolic Heart failure chronicity: acute on chronic Encephalopathy acute G93.40 Anemia D64.9 Anemia type: unspecified type CKD stage 2 due to type 2 diabetes mellitus E11.22; N18.2 Hypertension I10 Atrial fibrillation I48.11 Atrial fibrillation type: longstanding persistent Chronic anticoagulation Z79.01 Diabetes mellitus, type II E11.65; Z79.4 Diabetes mellitus complication status: with hyperglycemia 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
[2022-02-13 17:53] LABS: Glucose Point of Care 158 mg/dL (70-110)
[2022-02-13] MEDS: budesonide 0.5 mg/2 mL Neb INHALATION (20:19)
[2022-02-13] MEDS: atorvastatin 40 mg Tablet 80 MG PO (21:05)
[2022-02-13] MEDS: duloxetine 60 mg Capsule PO (21:05)
[2022-02-13 22:08] LABS: Glucose Point of Care 121 mg/dL (70-110)
[2022-02-14] VITALS (23 sets, daily range): BP systolic 90–113; BP diastolic 58–79; PULSE 71–117; RESP 0–27; TEMP 36.5–36.8; O2SAT 40–98
[2022-02-14] MEDS: ipratropium-albuterol 3 mL Neb INHALATION ×5 (02:35→23:58)
[2022-02-14 04:16] LABS: Basophils # 0.1 10^3/uL (0.0-0.1); Basophils % 0.3 %; Eosinophils # 0.3 10^3/uL (0.0-0.8); Eosinophils % 1.3 %; Hematocrit 33.1 % (42.0-52.0); Hemoglobin 9.5 g/dL (11.7-16.6); Lymphocytes # 2.3 10^3/uL (0.8-4.8); Lymphocytes % 11.1 %; Mean Corpuscular HGB Conc 28.7 g/dL (30.0-36.0); Mean Corpuscular Hemoglobin 28.4 pg (28.0-34.0); Mean Corpuscular Volume 99.1 fl (80-94); Mean Platelet Volume 12.7 fL (7.4-10.4); Monocytes # 1.4 10^3/uL (0.2-0.9); Monocytes % 6.7 %; Neutrophils # 16.35 10^3/uL (1.8-7.7); Neutrophils % 80.1 %; Nucleated Red Blood Cells % 0 %; Platelet Count 193 10^3/cmm (130-400); Red Blood Count 3.34 10^6/uL (4.1-5.3); Red Cell Distribution Width 14.6 % (12.1-15.1); White Blood Count 20.4 10^3/uL (4.0-10.0)
[2022-02-14 04:36] LABS: Anion Gap 9.9 (5-19); Blood Urea Nitrogen 15 mg/dL (8-23); Calcium 8.8 mg/dL (8.5-10.5); Carbon Dioxide 37 mmol/L (22-29); Chloride 97 mmol/L (98-107); Glomerular Filtration Rate 67.8 mL/min (90-130); Glucose 96 mg/dL (65-115); Magnesium 1.9 mg/dL (1.7-2.3); Osmolality Calculated 291 mOsm/kg (285-295); Potassium 3.9 mmol/L (3.5-5.1); Sodium 140 mmol/L (136-145)
[2022-02-14 04:39] LABS: Glucose Point of Care 96 mg/dL (70-110)
[2022-02-14] MEDS: budesonide 0.5 mg/2 mL Neb INHALATION ×2 (08:11→20:42)
[2022-02-14] MEDS: sodium chloride 3.5% neb 4 mL Neb INHALATION ×4 (08:12→23:59)
--- NOTE | 2022-02-14 08:18 | XR_ITS ---
WS: [id number] Exam: XR chest 1V portable [id number] Date/Time of Exam: 02/14/2022 8:26 AM Reason For Exam: follow up. hypoxia Comparison 02/10/2022. There is now ventilation of the majority of the left upper lobe since the prior study. There is atele ctasis of the lingula. There may be loculated pleural fluid on the left. There is still opacification of the left lower lobe. The heart is enlarged but unchanged in size. The right lung is now clear and fully expanded. The mediastinum is normal in contour. A left-sided IJ catheter ends in the lower one third of the SVC in good position. No pneumothorax is seen. Bony structures are intact. XR/XR chest 1V portable [id number] IMPRESSION: 1. There is now aeration of the left upper lobe which is a change since the nafisa or study. There is still atelectasis in the lingula and probably the left lower lobe. 2. Cardiac enlargement unchanged. 3. The right lung has cleared since the prior study. 4. There may be loculated pleural fluid in the left major fissure. 5. Left-sided IJ central line in satisfactory position
[2022-02-14 08:19] LABS: Glucose Point of Care 194 mg/dL (70-110)
[2022-02-14] MEDS: guaiFENesin 600 mg Tablet 1200 MG PO ×2 (08:23→17:16)
[2022-02-14] MEDS: ferrous gluconate 324 mg Tablet PO ×2 (08:23→17:16)
--- NOTE | 2022-02-14 08:23 | PM.PN ---
Subjective Subjective: Patient seen this morning. He is sitting up in the chair/recliner. He says he feels short of breath. Patient having a lot of diarrhea. WBC count up to 20,000 today. Repeat chest x-ray today is pending. Vitals/I&O/Wt Last Vital Signs Temp 98.1 F 02/14/22 08:00 Pulse 100 02/14/22 08:14 Resp 16 02/14/22 08:14 BP 113/73 02/14/22 08:00 Pulse Ox 95 02/14/22 08:14 O2 Del Method 02/14/22 08:14 O2 Flow Rate 6 02/14/22 08:00 FiO2 6 02/14/22 08:14 02/13/22 02/14/22 02/14/22 22:59 06:59 14:59 Intake Total 832.5 / 1816.25 50 / 1866.25 457 / 457 Output Total 2400 / 2400 3300 / 3300 Balance 832.5 / 1816.25 -2350 / -533.75 -2843 / -2843 Physical Exam Narrative: No acute distress, morbidly obese Const: GENERAL APPEARANCE: cooperative, comfortable, well developed and disheveled NUTRITIONAL APPEARANCE: obese morbidly obese Resp: AUSCULTATION: rhonchi and diminished lung sounds on the left Cardio: COMMON NORMALS: regular rhythm, S1 normal heart sound present, S2 normal heart sound present and No murmurs present (Cardio) RATE: tachycardic RHYTHM: regular rhythm HEART SOUNDS: S1 normal heart sound present and S2 normal heart sound present OTHER: Irregularly irregular with occasional tachycardia GI: COMMON NORMALS: Normal to inspection, nondistended, normoactive bowel sounds present and Soft to palpation PALPATION: Yes Soft to palpation OTHER: Large pannus Extremity: COMMON NORMALS: no joint enlargement GENERAL: Yes edema (trace, difficult to assess) Skin: OTHER: BL chronic stasis changes Urinary Catheter Management: Monterroso: Cath Placed During This Visit: no Reason for Continuing Indwelling Catheter: Other Data : 02/14/22 03:52 02/14/22 03:52 Micro: Microbiology 02/10/22 13:30 Gram Stain - Final Sputum - Expectorated Sputum Sputum Culture - Preliminary Gram Negative Rods A&P Assessment and plan (1) Acute on chronic respiratory failure with hypoxia and hypercapnia: Secondary to a combination of mucous plugging causing whiteout of left lung secondary to pneumonia, COPD exacerbation, obstructive sleep apnea. Post bronchoscopy and washout. Extubated on 02/07. Sputum culture consistent with Acinetobacter. MRSA negative. Repeat Sputum Cx sent. Switch antibiotics to cefepime to finish a 14-day course. Last dose on 02/13. Repeat chest x-ray shows improvement in left lung opacity. Echocardiogram results appreciated. Normal EF of 55 to 60%, RVSP of 25 mmHg, difficult to assess diastolic function given atrial fibrillation. Aggressive pulmonary toilet with chest vest. Incentive spirometry. DuoNebs every 4 hour, budesonide twice daily. Continue with acetylcysteine and hypertonic saline nebulization. Continue with oral prednisone weaning. Out of bed to chair. Advance diet as per speech therapy. Physical therapy. BiPAP nightly. (2) Mucus plugging of bronchi: (3) Pneumonia due to Acinetobacter species: (4) Aspiration pneumonia: (5) SHERLEY (obstructive sleep apnea): Has Bipap but inconsistent use, per recent Home Health Discharge, he will report compliance but an alondra has shown use only a couple of times in last month (6) COPD (chronic obstructive pulmonary disease): Chronically on oxygen generally at 4L bnc at rest but lately requiring 6-8L. Treatment as above. Qualifiers: COPD type: COPD with acute exacerbation Qualified Code(s): J44.1 - Chronic obstructive pulmonary disease with (acute) exacerbation (7) Hypernatremia: Most likely secondary to poor oral intake. Patient is around 11 L negative since admission. Having episodes of hypoglycemia. Start on D5W at 100 cc an hour. Repeat BMP in evening. (8) Hypoglycemia: History of type 2 diabetes mellitus. Most likely secondary to poor oral intake and evening of steroids. D5W as above. Steroid tapering. Decreased Lantus to 30 units twice daily. Holding off on morning dose. We will continue to monitor. Switch to insulin sliding scale low-dose protocol. (9) CHF (congestive heart failure): Acute on chronic. Appreciate echocardiogram results as above. Hold off on diuresis for now. Patient overall more than 12 L negative. Qualifiers: Heart failure type: diastolic Heart failure chronicity: acute on chronic Qualified Code(s): I50.33 - Acute on chronic diastolic (congestive) heart failure (10) Encephalopathy acute: Most likely secondary to hypoxia and hypercapnia. Cannot rule out encephalopathy secondary to pneumonia. Resolved. Continue with home dose of duloxetine. Continue with sedation. We will plan for gradual weaning. (11) Anemia: Chronic macrocytic anemia with baseline hemoglobin around 10. Appreciate vitamin B12 folate levels. Start on oral iron supplementation. Qualifiers: Anemia type: unspecified type Qualified Code(s): D64.9 - Anemia, unspecified (12) CKD stage 2 due to type 2 diabetes mellitus: Baseline creatinine around 1.1. Currently stable. Monitor fluid status daily. Hold off on any further diuresis or IV fluids for now. Medical reconciliation done for nephrotoxic drugs. Monitor BMP daily. (13) Hypertension: Goal blood pressure less than 140/ 90 mmHg with mean over 65. Blood pressure is better. Continue with metoprolol 25 mg twice daily. Chronically takes Imdur 50 mg daily, lisinopril 5 mg daily, metoprolol 100 mg twice daily along with Lasix and spironolactone. (14) Atrial fibrillation: Rate controlled. Continue with amiodarone 200 mg twice daily along with metoprolol 25 mg twice daily. Switch to oral Eliquis 5 mg twice daily. Qualifiers: Atrial fibrillation type: longstanding persistent Qualified Code(s): I48.11 - Longstanding persistent atrial fibrillation (15) Chronic anticoagulation: Previously on Eliquis, secondary to atrial fibrillation (16) Diabetes mellitus, type II: Insulin sliding scale as above. A1c 9.1 on 12/03/2021 Qualifiers: Diabetes mellitus complication status: with hyperglycemia Diabetes mellitus alf insulin use: with local intermodal truck driver use Qualified Code(s): E11.65 - Type 2 diabetes mellitus with hyperglycemia; Z79.4 - terminal makeup operator (current) use of insulin (17) Goals of care, counseling/discussion: Plan Lymphedema Chronically on duloxetine Chronically on vitamin C, multivitamin, vitamin D, vitamin B12 Recently discharged from home health services, last week Constipation: Start on lactulose twice daily. Keep monterroso for now. Patient severely deconditioned. Attempts to work with physical therapy however cannot do much. He is significantly weak and definitely will need rehab. O2 requirements 6L at rest. On exertion or any movement, does desaturate. Check Chest xray today. pt more short of breath today. hold stool softeners check c.diff. WBC count up. WIll discuss with pulmonology Analgesia: Tylenol as needed Glycemic control: Lantus 37 units, sliding scale every 6 hourly Nutrition: Dysphagia level 5 diet. CODE STATUS: Full code. PUD prophylaxis: Protonix 40 mg twice daily DVT prophylaxis: Continue on Eliquis Discharge planning: Given recurrent hypoxic respiratory failure requiring high oxygen supplementation secondary to aspiration leading to left lung opacity in setting of morbid obesity, physical deconditioning patient would benefit from pulmonary and physical rehab. Patient can get best care at [facility]. Family and patient understandable and agreeable. Case management alerted. Patient declined by [facility]. Continue care at [facility] with telemetry. This documentation was created by [employer] coating machine helper software. Every effort was made to ensure accuracy of coating machine helper. Any obvious errors or omissions should be clarified with the author of the document. Attestations Medical Necessity Statement*: will require continued hospitalization at this time Coding Level of Care Code Acute Assisted Living Coordinator for Chg Fwd Diagnoses Acute on chronic respiratory failure with hypoxia and hypercapnia J96.21; J96.22 Mucus plugging of bronchi T17.500A Pneumonia due to Acinetobacter species J15.8 Aspiration pneumonia J69.0 SHERLEY (obstructive sleep apnea) G47.33 COPD (chronic obstructive pulmonary disease) J44.1 COPD type: COPD with acute exacerbation Hypernatremia E87.0 Hypoglycemia E16.2 CHF (congestive heart failure) I50.33 Heart failure type: diastolic Heart failure chronicity: acute on chronic Encephalopathy acute G93.40 Anemia D64.9 Anemia type: unspecified type CKD stage 2 due to type 2 diabetes mellitus E11.22; N18.2 Hypertension I10 Atrial fibrillation I48.11 Atrial fibrillation type: longstanding persistent Chronic anticoagulation Z79.01 Diabetes mellitus, type II E11.65; Z79.4 Diabetes mellitus complication status: with hyperglycemia Diabetes mellitus local intermodal truck driver insulin use: with local intermodal truck driver use Goals of care, counseling/discussion Z71.89
[2022-02-14] MEDS: apixaban 5 mg Tablet PO ×2 (08:24→20:16)
[2022-02-14] MEDS: predniSONE 10 mg Tablet PO (08:24)
[2022-02-14] MEDS: amiodarone 200 mg Tablet PO ×2 (08:24→17:16)
[2022-02-14] MEDS: metoprolol tartrate 25 mg Tablet PO ×2 (08:24→20:16)
[2022-02-14] MEDS: pantoprazole 40 mg SDV IVP ×2 (08:24→20:16)
[2022-02-14] MEDS: insulin glargine 100 units/1 mL 30 UNIT SUBCUT (08:25)
--- NOTE | 2022-02-14 09:56 | PC.SOCIAL ---
IMM Updated Updated pt on IMM. No questions voiced. Provided pt a copy. Initialed, dated, & timed copy in chart.
[2022-02-14 11:51] LABS: Glucose Point of Care 267 mg/dL (70-110)
[2022-02-14] MEDS: insulin lispro 100 unit/1 mL SUBCUT (12:25)
[2022-02-14] MEDS: sodium chloride 0.9% 250 ML IV (12:26)
[2022-02-14] MEDS: nystatin powder 15 gm Btl 1 APPLIC TOPICAL ×2 (12:26→17:18)
[2022-02-14 12:43] LABS: Procalcitonin 0.14 ng/mL (0-0.5)
[2022-02-14] MEDS: calcium carbonate 500 mg Chew Tablet PO (14:49)
[2022-02-14] MEDS: acetylcysteine 200 mg/mL SDV 4 mL 100 MG INHALATION ×3 (15:33→23:58)
[2022-02-14 16:40] LABS: Glucose Point of Care 88 mg/dL (70-110)
[2022-02-14] MEDS: duloxetine 60 mg Capsule PO (20:16)
[2022-02-14] MEDS: atorvastatin 40 mg Tablet 80 MG PO (20:16)
[2022-02-14 20:22] LABS: Glucose Point of Care 125 mg/dL (70-110)
[2022-02-14 23:36] LABS: Glucose Point of Care 77 mg/dL (70-110)
[2022-02-15] VITALS (15 sets, daily range): BP systolic 102–118; BP diastolic 65–89; PULSE 81–121; RESP 14–22; TEMP 36.8–37; O2SAT 91–98
[2022-02-15] MEDS: sodium chloride 3.5% neb 4 mL Neb INHALATION ×5 (04:31→19:34)
[2022-02-15] MEDS: acetylcysteine 200 mg/mL SDV 4 mL 100 MG INHALATION ×5 (04:31→19:34)
[2022-02-15] MEDS: ipratropium-albuterol 3 mL Neb INHALATION ×5 (04:31→19:34)
[2022-02-15 06:07] LABS: Glucose Point of Care 87 mg/dL (70-110)
[2022-02-15] MEDS: budesonide 0.5 mg/2 mL Neb INHALATION ×2 (07:45→19:34)
[2022-02-15] MEDS: ferrous gluconate 324 mg Tablet PO ×2 (08:37→17:32)
[2022-02-15] MEDS: guaiFENesin 600 mg Tablet 1200 MG PO ×2 (08:37→17:32)
[2022-02-15] MEDS: metoprolol tartrate 25 mg Tablet PO ×2 (08:38→20:18)
[2022-02-15] MEDS: sulfamethoxazole-trimeth DS 160-800 mg Tablet 1 TAB PO ×2 (08:38→20:18)
[2022-02-15] MEDS: nystatin powder 15 gm Btl 1 APPLIC TOPICAL ×2 (08:38→17:32)
[2022-02-15] MEDS: apixaban 5 mg Tablet PO ×2 (08:38→20:18)
[2022-02-15] MEDS: predniSONE 10 mg Tablet PO (08:38)
[2022-02-15] MEDS: amiodarone 200 mg Tablet PO ×2 (08:38→17:32)
[2022-02-15] MEDS: pantoprazole 40 mg SDV IVP ×2 (09:25→21:36)
[2022-02-15 09:42] LABS: Basophils # 0.1 10^3/uL (0.0-0.1); Basophils % 0.6 %; Eosinophils # 0.3 10^3/uL (0.0-0.8); Eosinophils % 2.9 %; Hematocrit 32.3 % (42.0-52.0); Hemoglobin 9.5 g/dL (11.7-16.6); Lymphocytes # 1.7 10^3/uL (0.8-4.8); Lymphocytes % 14.1 %; Mean Corpuscular HGB Conc 29.4 g/dL (30.0-36.0); Mean Corpuscular Volume 98.5 fl (80-94); Mean Platelet Volume 12.3 fL (7.4-10.4); Monocytes # 0.9 10^3/uL (0.2-0.9); Monocytes % 7.8 %; Neutrophils % 74.3 %; Nucleated Red Blood Cells % 0 %; Platelet Count 161 10^3/cmm (130-400); Red Blood Count 3.28 10^6/uL (4.1-5.3); Red Cell Distribution Width 14.7 % (12.1-15.1); White Blood Count 11.7 10^3/uL (4.0-10.0)
[2022-02-15 10:16] LABS: Anion Gap 10.7 (5-19); Blood Urea Nitrogen 14 mg/dL (8-23); Calcium 8.6 mg/dL (8.5-10.5); Carbon Dioxide 37 mmol/L (22-29); Chloride 99 mmol/L (98-107); Glomerular Filtration Rate 61.3 mL/min (90-130); Glucose 97 mg/dL (65-115); Osmolality Calculated 296 mOsm/kg (285-295); Potassium 3.7 mmol/L (3.5-5.1); Sodium 143 mmol/L (136-145)
--- NOTE | 2022-02-15 11:41 | PM.PN ---
Subjective Subjective: he feels better today on 5L NC positive for c.diff, oral vanco started Vitals/I&O/Wt Last Vital Signs Temp 98.4 F 02/15/22 08:00 Pulse 102 H 02/15/22 08:00 Resp 18 02/15/22 08:00 BP 104/65 02/15/22 08:00 Pulse Ox 96 02/15/22 08:00 O2 Del Method 02/15/22 08:00 O2 Flow Rate 5 02/15/22 08:00 FiO2 40 02/15/22 02:00 02/14/22 02/15/22 02/15/22 22:59 06:59 14:59 Intake Total 528.125 / 2475.125 500 / 2975.125 240 / 240 Output Total 650 / 3950 450 / 4400 Balance -121.875 / -1474.875 50 / -1424.875 240 / 240 Physical Exam Narrative: No acute distress, morbidly obese Const: GENERAL APPEARANCE: cooperative, comfortable, well developed and disheveled NUTRITIONAL APPEARANCE: obese morbidly obese Resp: AUSCULTATION: rhonchi and diminished lung sounds on the left Cardio: COMMON NORMALS: regular rhythm, S1 normal heart sound present, S2 normal heart sound present and No murmurs present (Cardio) RATE: tachycardic RHYTHM: regular rhythm HEART SOUNDS: S1 normal heart sound present and S2 normal heart sound present OTHER: Irregularly irregular with occasional tachycardia GI: COMMON NORMALS: Normal to inspection, nondistended, normoactive bowel sounds present and Soft to palpation PALPATION: Yes Soft to palpation OTHER: Large pannus Extremity: COMMON NORMALS: no joint enlargement GENERAL: Yes edema (trace, difficult to assess) Skin: OTHER: BL chronic stasis changes Urinary Catheter Management: [place]ro[place]: Cath Placed During This Visit: no Reason for Continuing Indwelling Catheter: Other Data : 02/15/22 09:25 02/15/22 09:25 Micro: Microbiology 02/14/22 11:45 C.difficile Toxin B Gene (PCR) - Final Stool - Stool Aspirate 02/10/22 13:30 Gram Stain - Final Sputum - Expectorated Sputum Sputum Culture - Final Stenotrophomonas maltophilia A&P Assessment and plan (1) Acute on chronic respiratory failure with hypoxia and hypercapnia: Secondary to a combination of mucous plugging causing whiteout of left lung secondary to pneumonia, COPD exacerbation, obstructive sleep apnea. Post bronchoscopy and washout. Extubated on 02/07. Sputum culture consistent with Acinetobacter. MRSA negative. Repeat Sputum Cx sent. Switch antibiotics to cefepime to finish a 14-day course. Last dose on 02/13. Repeat chest x-ray shows improvement in left lung opacity. Echocardiogram results appreciated. Normal EF of 55 to 60%, RVSP of 25 mmHg, difficult to assess diastolic function given atrial fibrillation. Aggressive pulmonary toilet with chest vest. Incentive spirometry. DuoNebs every 4 hour, budesonide twice daily. Continue with acetylcysteine and hypertonic saline nebulization. Continue with oral prednisone weaning. Out of bed to chair. Advance diet as per speech therapy. Physical therapy. BiPAP nightly. (2) Mucus plugging of bronchi: (3) Pneumonia due to Acinetobacter species: (4) Aspiration pneumonia: (5) SHERLEY (obstructive sleep apnea): Has Bipap but inconsistent use, per recent Home Health Discharge, he will report compliance but an alondra has shown use only a couple of times in last month (6) COPD (chronic obstructive pulmonary disease): Chronically on oxygen generally at 4L bnc at rest but now on 5L. Treatment as above. Qualifiers: COPD type: COPD with acute exacerbation Qualified Code(s): J44.1 - Chronic obstructive pulmonary disease with (acute) exacerbation (7) Hypernatremia: Most likely secondary to poor oral intake. Patient is around 11 L negative since admission. Having episodes of hypoglycemia. Repeat BMP in evening. (8) Hypoglycemia: History of type 2 diabetes mellitus. Most likely secondary to poor oral intake and evening of steroids. D5W as above. Steroid tapering. Decreased Lantus to 30 units twice daily. Holding off on morning dose. We will continue to monitor. Switch to insulin sliding scale low-dose protocol. (9) CHF (congestive heart failure): Acute on chronic. Appreciate echocardiogram results as above. Hold off on diuresis for now. Patient overall more than 12 L negative. Qualifiers: Heart failure type: diastolic Heart failure chronicity: acute on chronic Qualified Code(s): I50.33 - Acute on chronic diastolic (congestive) heart failure (10) Encephalopathy acute: Most likely secondary to hypoxia and hypercapnia. Cannot rule out encephalopathy secondary to pneumonia. Resolved. Continue with home dose of duloxetine. (11) Anemia: Chronic macrocytic anemia with baseline hemoglobin around 10. Appreciate vitamin B12 folate levels. Start on oral iron supplementation. Qualifiers: Anemia type: unspecified type Qualified Code(s): D64.9 - Anemia, unspecified (12) CKD stage 2 due to type 2 diabetes mellitus: Baseline creatinine around 1.1. Currently stable. Monitor fluid status daily. Hold off on any further diuresis or IV fluids for now. Medical reconciliation done for nephrotoxic drugs. Monitor BMP daily. (13) Hypertension: Goal blood pressure less than 140/ 90 mmHg with mean over 65. Blood pressure is better. Continue with metoprolol 25 mg twice daily. Chronically takes Imdur 50 mg daily, lisinopril 5 mg daily, metoprolol 100 mg twice daily along with Lasix and spironolactone. (14) Atrial fibrillation: Rate controlled. Continue with amiodarone 200 mg twice daily along with metoprolol 25 mg twice daily. Switch to oral Eliquis 5 mg twice daily. Qualifiers: Atrial fibrillation type: longstanding persistent Qualified Code(s): I48.11 - Longstanding persistent atrial fibrillation (15) Chronic anticoagulation: Previously on Eliquis, secondary to atrial fibrillation (16) Diabetes mellitus, type II: Insulin sliding scale as above. A1c 9.1 on 12/03/2021 Qualifiers: Diabetes mellitus complication status: with hyperglycemia Diabetes mellitus intermediate card tender insulin use: with intermediate card tender use Qualified Code(s): E11.65 - Type 2 diabetes mellitus with hyperglycemia; Z79.4 - longterm (current) use of insulin (17) Goals of care, counseling/discussion: Plan Lymphedema Chronically on duloxetine Chronically on vitamin C, multivitamin, vitamin D, vitamin B12 Recently discharged from home health services, last week Constipation: Hold lactulose. Keep monterroso for now. Patient severely deconditioned. Attempts to work with physical therapy however cannot do much. He is significantly weak and definitely will need rehab. O2 requirements 6L at rest. On exertion or any movement, does desaturate. Check Chest xray today. pt more short of breath today. hold stool softeners C.diff positive. COntinue on oral vancomycin. PUlm saw pt and did bedside ultrasound. THere is no evidence of effusion Pt positive for stenotrophomonas maltophila. COntinue on oral bactrim. Monitor BMP Daily. Analgesia: Tylenol as needed Glycemic control: Lantus 37 units, sliding scale every 6 hourly Nutrition: Dysphagia level 5 diet. CODE STATUS: Full code. PUD prophylaxis: Protonix 40 mg twice daily DVT prophylaxis: Continue on Eliquis Discharge planning: Given recurrent hypoxic respiratory failure requiring high oxygen supplementation secondary to aspiration leading to left lung opacity in setting of morbid obesity, physical deconditioning patient would benefit from pulmonary and physical rehab. Patient can get best care at [facility]. Family and patient understandable and agreeable. Case management alerted. Patient declined by [facility]. Continue care at [facility] with telemetry. This documentation was created by [employer] historical site guide software. Every effort was made to ensure accuracy of historical site guide. Any obvious errors or omissions should be clarified with the author of the document. Attestations Medical Necessity Statement*: will require continued hospitalization at this time Placement being setup. Coding Level of Care Code Acute Home Appliance Technician for Chg Fwd Diagnoses Acute on chronic respiratory failure with hypoxia and hypercapnia J96.21; J96.22 Mucus plugging of bronchi T17.500A Pneumonia due to Acinetobacter species J15.8 Aspiration pneumonia J69.0 SHERLEY (obstructive sleep apnea) G47.33 COPD (chronic obstructive pulmonary disease) J44.1 COPD type: COPD with acute exacerbation Hypernatremia E87.0 Hypoglycemia E16.2 CHF (congestive heart failure) I50.33 Heart failure type: diastolic Heart failure chronicity: acute on chronic Encephalopathy acute G93.40 Anemia D64.9 Anemia type: unspecified type CKD stage 2 due to type 2 diabetes mellitus E11.22; N18.2 Hypertension I10 Atrial fibrillation I48.11 Atrial fibrillation type: longstanding persistent Chronic anticoagulation Z79.01 Diabetes mellitus, type II E11.65; Z79.4 Diabetes mellitus complication status: with hyperglycemia Diabetes mellitus senior care insulin use: with intermediate card tender use Goals of care, counseling/discussion Z71.89
[2022-02-15 13:09] LABS: Glucose Point of Care 180 mg/dL (70-110)
[2022-02-15 17:07] LABS: Glucose Point of Care 336 mg/dL (70-110)
[2022-02-15] MEDS: duloxetine 60 mg Capsule PO (20:18)
[2022-02-15] MEDS: atorvastatin 40 mg Tablet 80 MG PO (20:18)
[2022-02-15] MEDS: artificial tears Op Oint 3.5 gm 1 APPLIC EYE-BOTH (20:18)
[2022-02-15 21:34] LABS: Glucose Point of Care 326 mg/dL (70-110)
[2022-02-15 21:34] LABS: Glucose Point of Care 149 mg/dL (70-110)
[2022-02-16] VITALS (17 sets, daily range): BP systolic 94–125; BP diastolic 68–84; PULSE 81–116; RESP 17–24; TEMP 36.3–36.8; O2SAT 93–100
[2022-02-16] MEDS: sodium chloride 3.5% neb 4 mL Neb INHALATION ×5 (00:11→23:51)
[2022-02-16] MEDS: ipratropium-albuterol 3 mL Neb INHALATION ×7 (00:11→23:51)
[2022-02-16] MEDS: acetylcysteine 200 mg/mL SDV 4 mL 100 MG INHALATION ×2 (00:11→03:02)
[2022-02-16 00:47] LABS: Glucose Point of Care 129 mg/dL (70-110)
[2022-02-16 04:34] LABS: Anion Gap 8.4 (5-19); Blood Urea Nitrogen 12 mg/dL (8-23); Calcium 8.5 mg/dL (8.5-10.5); Carbon Dioxide 36 mmol/L (22-29); Chloride 99 mmol/L (98-107); Glomerular Filtration Rate 67.8 mL/min (90-130); Glucose 130 mg/dL (65-115); Osmolality Calculated 292 mOsm/kg (285-295); Potassium 3.4 mmol/L (3.5-5.1); Sodium 140 mmol/L (136-145)
[2022-02-16 06:26] LABS: Glucose Point of Care 117 mg/dL (70-110)
[2022-02-16] MEDS: amiodarone 200 mg Tablet PO ×2 (08:09→18:18)
[2022-02-16] MEDS: ferrous gluconate 324 mg Tablet PO ×2 (08:09→18:18)
[2022-02-16] MEDS: pantoprazole 40 mg SDV IVP ×2 (08:09→20:47)
[2022-02-16] MEDS: apixaban 5 mg Tablet PO ×2 (08:10→20:45)
[2022-02-16] MEDS: guaiFENesin 600 mg Tablet 1200 MG PO ×2 (08:10→18:19)
[2022-02-16] MEDS: sulfamethoxazole-trimeth DS 160-800 mg Tablet 1 TAB PO ×2 (08:10→20:46)
[2022-02-16] MEDS: metoprolol tartrate 25 mg Tablet PO ×2 (08:11→20:46)
[2022-02-16] MEDS: potassium chloride ER 20 mEq Tablet 40 MEQ PO (08:15)
[2022-02-16] MEDS: budesonide 0.5 mg/2 mL Neb INHALATION ×2 (08:34→19:40)
--- NOTE | 2022-02-16 11:00 | P.PN_ITS ---
Subjective Subjective: Seen this morning. Patient states that his groin hurts. Rates where the Monterroso catheter is stuck between his pelvic region. Central line was ordered to be taken out yesterday but nursing could not obtain peripheral IV access. I have asked him to obtain peripheral IV access with ultrasound but central line will need to be discontinued today. Monterroso catheter will also be removed today. Patient agreeable. Will place a [place] catheter if needed. Patient's significant other at bedside. Patient is on 3.5 L O2 today. Reportedly he feels better as well. Vitals/I&O/Wt Last Vital Signs Temp 97.9 F 02/16/22 07:56 Pulse 100 02/16/22 08:35 Resp 24 H 02/16/22 08:35 BP 110/71 02/16/22 07:56 Pulse Ox 98 02/16/22 08:35 O2 Del Method 02/16/22 08:35 O2 Flow Rate 3 02/16/22 08:35 FiO2 40 02/16/22 03:00 02/15/22 02/16/22 02/16/22 22:59 06:59 14:59 Intake Total 60 / 300 Output Total 1050 / 1050 Balance -990 / -750 Physical Exam Narrative: No acute distress, morbidly obese Const: GENERAL APPEARANCE: cooperative, comfortable, well developed and disheveled NUTRITIONAL APPEARANCE: obese morbidly obese Resp: AUSCULTATION: rhonchi and diminished lung sounds on the left Cardio: COMMON NORMALS: regular rhythm, S1 normal heart sound present, S2 normal heart sound present and No murmurs present (Cardio) RATE: tachycardic RHYTHM: regular rhythm HEART SOUNDS: S1 normal heart sound present and S2 normal heart sound present OTHER: Irregularly irregular with occasional tachycardia GI: COMMON NORMALS: Normal to inspection, nondistended, normoactive bowel bee nds present and Soft to palpation PALPATION: Yes Soft to palpation OTHER: Large pannus : OTHER: Examined groin area. Mild redness and irritation present for Monterroso catheter was. Skin appears irritated. Extremity: COMMON NORMALS: no joint enlargement GENERAL: Yes edema (trace, difficult to assess) Skin: OTHER: BL chronic stasis changes Urinary Catheter Management: Monterroso: Cath Placed During This Visit: no Reason for Continuing Indwelling Catheter: Other Data : 02/15/22 09:25 02/16/22 03:49 A&P Assessment and plan (1) Acute on chronic respiratory failure with hypoxia and hypercapnia: Secondary to a combination of mucous plugging causing whiteout of left lung secondary to pneumonia, COPD exacerbation, obstructive sleep apnea. Post bronchoscopy and washout. Extubated on 02/07. Sputum culture consistent with Acinetobacter. MRSA negative. Repeat Sputum Cx sent. Switch antibiotics to cefepime to finish a 14-day course. Last dose on 02/13. Repeat chest x-ray shows improvement in left lung opacity. Echocardiogram results appreciated. Normal EF of 55 to 60%, RVSP of 25 mmHg, difficult to assess diastolic function given atrial fibrillation. Aggressive pulmonary toilet with chest vest. Incentive spirometry. DuoNebs every 4 hour, budesonide twice daily. Continue with acetylcysteine and hypertonic saline nebulization. Continue with oral prednisone weaning. Out of bed to chair. Advance diet as per speech therapy. Physical therapy. BiPAP nightly. (2) Mucus plugging of bronchi: (3) Pneumonia due to Acinetobacter species: (4) Aspiration pneumonia: (5) SHERLEY (obstructive sleep apnea): Has Bipap but inconsistent use, per recent Home Health Discharge, he will report compliance but an alondra has shown use only a couple of times in last month (6) COPD (chronic obstructive pulmonary disease): Chronically on oxygen generally at 4L bnc at rest but now on 5L. Treatment as above. Qualifiers: COPD type: COPD with acute exacerbation Qualified Code(s): J44.1 - Chronic obstructive pulmonary disease with (acute) exacerbation (7) Hypernatremia: Most likely secondary to poor oral intake. Patient is around 11 L negative since admission. Having episodes of hypoglycemia. Repeat BMP in evening. (8) Hypoglycemia: History of type 2 diabetes mellitus. Most likely secondary to poor oral intake and evening of steroids. D5W as above. Steroid tapering. Hold Lantus at this time Switch to insulin sliding scale low-dose protocol. (9) CHF (congestive heart failure): Acute on chronic. Appreciate echocardiogram results as above. Hold off on diuresis for now. Patient overall more than 12 L negative. Qualifiers: Heart failure type: diastolic Heart failure chronicity: acute on chronic Qualified Code(s): I50.33 - Acute on chronic diastolic (congestive) heart failure (10) Encephalopathy acute: Most likely secondary to hypoxia and hypercapnia. Cannot rule out encephalopathy secondary to pneumonia. Resolved. Continue with home dose of duloxetine. (11) Anemia: Chronic macrocytic anemia with baseline hemoglobin around 10. Appreciate vitamin B12 folate levels. Start on oral iron supplementation. Qualifiers: Anemia type: unspecified type Qualified Code(s): D64.9 - Anemia, unspecified (12) CKD stage 2 due to type 2 diabetes mellitus: Baseline creatinine around 1.1. Currently stable. Monitor fluid status daily. Hold off on any further diuresis or IV fluids for now. Medical reconciliation done for nephrotoxic drugs. Monitor BMP daily. (13) Hypertension: Goal blood pressure less than 140/ 90 mmHg with mean over 65. Blood pressure is better. Continue with metoprolol 25 mg twice daily. Chronically takes Imdur 50 mg daily, lisinopril 5 mg daily, metoprolol 100 mg twice daily along with Lasix and spironolactone. (14) Atrial fibrillation: Rate controlled. Continue with amiodarone 200 mg twice daily along with metoprolol 25 mg twice daily. Switch to oral Eliquis 5 mg twice daily. Qualifiers: Atrial fibrillation type: longstanding persistent Qualified Code(s): I48.11 - Longstanding persistent atrial fibrillation (15) Chronic anticoagulation: Previously on Eliquis, secondary to atrial fibrillation (16) Diabetes mellitus, type II: Insulin sliding scale as above. 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 Keep monterroso for now. Patient severely deconditioned. Attempts to work with physical therapy however cannot do much. He is significantly weak and definitely will need rehab. O2 requirements 6L at rest. On exertion or any movement, does desaturate. Check Chest xray today. pt more short of breath today. hold stool softeners C.diff positive. COntinue on oral vancomycin. PUlm saw pt and did bedside ultrasound. THere is no evidence of effusion Pt positive for stenotrophomonas maltophila. COntinue on oral bactrim. Monitor BMP Daily. -Continue to work with physical therapy. Find placement for patient. Analgesia: Tylenol as needed Glycemic control: Lantus 37 units, sliding scale every 6 hourly Nutrition: Dysphagia level 5 diet. CODE STATUS: Full code. PUD prophylaxis: Protonix 40 mg twice daily DVT prophylaxis: Continue on Eliquis Discharge planning: Given recurrent hypoxic respiratory failure requiring high oxygen supplementation secondary to aspiration leading to left lung opacity in setting of morbid obesity, physical deconditioning patient would benefit from pulmonary and physical rehab. Patient can get best care at [facility]. Family and patient understandable and agreeable. Case management alerted. Patient declined by [facility]. Continue care at [facility] with telemetry. This documentation was created by [employer] quality engineering manager software. Every effort was made to ensure accuracy of quality engineering manager. Any obvious errors or omissions should be clarified with the author of the document. Attestations Medical Necessity Statement*: will require continued hospitalization at this time Placement being setup. Coding Level of Care Code Acute Electronics Assembler for g Fwd Diagnoses Acute on chronic respiratory failure with hypoxia and hypercapnia J96.21; J96.22 Mucus plugging of bronchi T17.500A Pneumonia due to Acinetobacter species J15.8 Aspiration pneumonia J69.0 SHERLEY (obstructive sleep apnea) G47.33 COPD (chronic obstructive pulmonary disease) J44.1 COPD type: COPD with acute exacerbation Hypernatremia E87.0 Hypoglycemia E16.2 CHF (congestive heart failure) I50.33 Heart failure type: diastolic Heart failure chronicity: acute on chronic Encephalopathy acute G93.40 Anemia D64.9 Anemia type: unspecified type CKD stage 2 due to type 2 diabetes mellitus E11.22; N18.2 Hypertension I10 Atrial fibrillation I48.11 Atrial fibrillation type: longstanding persistent Chronic anticoagulation Z79.01 Diabetes mellitus, type II E11.65; Z79.4 Diabetes mellitus complication status: with hyperglycemia Diabetes mellitus termination clerk insulin use: with termination clerk use Goals of care, counseling/discussion Z71.89
[2022-02-16 11:34] LABS: Glucose Point of Care 175 mg/dL (70-110)
[2022-02-16 16:59] LABS: Glucose Point of Care 207 mg/dL (70-110)
[2022-02-16] MEDS: nystatin powder 15 gm Btl 1 APPLIC TOPICAL (17:20)
[2022-02-16 20:45] LABS: Glucose Point of Care 165 mg/dL (70-110)
[2022-02-16] MEDS: atorvastatin 40 mg Tablet 80 MG PO (20:45)
[2022-02-16] MEDS: duloxetine 60 mg Capsule PO (20:46)
[2022-02-17] VITALS (15 sets, daily range): BP systolic 94–128; BP diastolic 56–95; PULSE 95–115; RESP 17–21; TEMP 36.5–37; O2SAT 90–100
[2022-02-17] MEDS: sodium chloride 3.5% neb 4 mL Neb INHALATION ×4 (03:12→15:52)
[2022-02-17] MEDS: ipratropium-albuterol 3 mL Neb INHALATION ×5 (03:12→20:24)
[2022-02-17 03:19] LABS: Anion Gap 9.9 (5-19); Blood Urea Nitrogen 12 mg/dL (8-23); Calcium 8.6 mg/dL (8.5-10.5); Carbon Dioxide 36 mmol/L (22-29); Chloride 98 mmol/L (98-107); Glomerular Filtration Rate 61.3 mL/min (90-130); Glucose 155 mg/dL (65-115); Magnesium 1.9 mg/dL (1.7-2.3); Osmolality Calculated 293 mOsm/kg (285-295); Potassium 3.9 mmol/L (3.5-5.1); Sodium 140 mmol/L (136-145)
[2022-02-17 03:28] LABS: Basophils # 0.1 10^3/uL (0.0-0.1); Basophils % 0.7 %; Eosinophils # 0.2 10^3/uL (0.0-0.8); Eosinophils % 2.9 %; Hematocrit 30.3 % (42.0-52.0); Lymphocytes # 1.6 10^3/uL (0.8-4.8); Lymphocytes % 19.4 %; Mean Corpuscular HGB Conc 29.7 g/dL (30.0-36.0); Mean Corpuscular Hemoglobin 28.8 pg (28.0-34.0); Mean Corpuscular Volume 96.8 fl (80-94); Mean Platelet Volume 13.5 fL (7.4-10.4); Monocytes # 0.7 10^3/uL (0.2-0.9); Monocytes % 8.6 %; Neutrophils # 5.63 10^3/uL (1.8-7.7); Neutrophils % 68.2 %; Nucleated Red Blood Cells % 0 %; Platelet Count 142 10^3/cmm (130-400); Red Blood Count 3.13 10^6/uL (4.1-5.3); Red Cell Distribution Width 14.7 % (12.1-15.1); White Blood Count 8.3 10^3/uL (4.0-10.0)
[2022-02-17 06:26] LABS: Glucose Point of Care 151 mg/dL (70-110)
[2022-02-17] MEDS: budesonide 0.5 mg/2 mL Neb INHALATION ×2 (07:46→20:24)
[2022-02-17] MEDS: metoprolol tartrate 25 mg Tablet PO ×2 (08:59→21:40)
[2022-02-17] MEDS: amiodarone 200 mg Tablet PO ×2 (08:59→17:28)
[2022-02-17] MEDS: ferrous gluconate 324 mg Tablet PO ×2 (08:59→17:27)
[2022-02-17] MEDS: apixaban 5 mg Tablet PO ×2 (08:59→21:41)
[2022-02-17] MEDS: guaiFENesin 600 mg Tablet 1200 MG PO ×2 (08:59→17:27)
[2022-02-17] MEDS: sulfamethoxazole-trimeth DS 160-800 mg Tablet 1 TAB PO ×2 (09:00→21:39)
[2022-02-17] MEDS: pantoprazole 40 mg SDV IVP ×2 (09:00→21:39)
[2022-02-17] MEDS: nystatin powder 15 gm Btl 1 APPLIC TOPICAL ×2 (09:05→17:28)
[2022-02-17] MEDS: calcium carbonate 500 mg Chew Tablet PO (10:32)
[2022-02-17 10:53] LABS: Glucose Point of Care 220 mg/dL (70-110)
--- NOTE | 2022-02-17 11:54 | P.PN_ITS ---
Subjective Subjective: seen this am. no acute events overnight. pt able to get into wheelchair reported to me by nursing staff that they were unable to take out central line yesterday and remove the monterroso because they could not find peripheral IV access or a [place] cathether. Pt's significant other attempting to get a ramp placed at home incase they go home with home health, however are interested in inpatient rehab Vitals/I&O/Wt Last Vital Signs Temp 97.7 F 02/17/22 11:37 Pulse 110 H 02/17/22 11:37 Resp 17 02/17/22 11:37 BP 122/95 02/17/22 11:37 Pulse Ox 95 02/17/22 11:37 O2 Del Method 02/17/22 11:37 O2 Flow Rate 3 02/17/22 11:35 FiO2 40 02/17/22 07:48 02/16/22 02/17/22 02/17/22 22:59 06:59 14:59 Intake Total 250 / 250 800 / 1050 Output Total 900 / 900 200 / 1100 200 / 200 Balance -650 / -650 600 / -50 -200 / -200 Weight last 48 hrs Weight 184.975 kg Physical Exam Narrative: No acute distress, morbidly obese central line in right IJ area. dressing peeling off Const: GENERAL APPEARANCE: cooperative, comfortable, well developed and disheveled NUTRITIONAL APPEARANCE: obese morbidly obese Resp: AUSCULTATION: rhonchi and diminished lung sounds on the left Cardio: COMMON NORMALS: regular rhythm, S1 normal heart sound present, S2 normal heart sound present and No murmurs present (Cardio) RATE: tachycardic RHYTHM: regular rhythm HEART SOUNDS: S1 normal heart sound present and S2 normal heart sound present OTHER: Irregularly irregular with occasional tachycardia GI: COMMON NORMALS: Normal to inspection, nondistended, normoactive bowel sounds present and Soft to palpation PALPATION: Yes Soft to palpation OTHER: Large pannus : OTHER: Examined groin area. Mild redness and irritation present for Monterroso catheter was. Skin appears irritated. Extremity: COMMON NORMALS: no joint enlargement GENERAL: Yes edema (trace, difficult to assess) Skin: OTHER: BL chronic stasis changes Urinary Catheter Management: Monterroso: Cath Placed During This Visit: yes, but has since been removed by the nurse Reason for Continuing Indwelling Catheter: Decision to DC Catheter Date Urinary Catheter Removed: 02/17/22 Time Urinary Catheter Discontinued: 10:48 Data : 02/17/22 02:19 02/17/22 02:19 A&P Assessment and plan (1) Acute on chronic respiratory failure with hypoxia and hypercapnia: Secondary to a combination of mucous plugging causing whiteout of left lung secondary to pneumonia, COPD exacerbation, obstructive sleep apnea. Post bronchoscopy and washout. Extubated on 02/07. Sputum culture consistent with Acinetobacter. MRSA negative. Repeat Sputum Cx sent. Switch antibiotics to cefepime to finish a 14-day course. Last dose on 02/13. Repeat chest x-ray shows improvement in left lung opacity. Echocardiogram results appreciated. Normal EF of 55 to 60%, RVSP of 25 mmHg, difficult to assess diastolic function given atrial fibrillation. Aggressive pulmonary toilet with chest vest. Incentive spirometry. DuoNebs every 4 hour, budesonide twice daily. Continue with acetylcysteine and hypertonic saline nebulization. Continue with oral prednisone weaning. Out of bed to chair. Advance diet as per speech therapy. Physical therapy. BiPAP nightly. (2) Mucus plugging of bronchi: (3) Pneumonia due to Acinetobacter species: (4) Aspiration pneumonia: (5) SHERLEY (obstructive sleep apnea): Has Bipap but inconsistent use, per recent Home Health Discharge, he will report compliance but an alondra has shown use only a couple of times in last month (6) COPD (chronic obstructive pulmonary disease): Chronically on oxygen generally at 4L bnc at rest but now on 5L. Treatment as above. Qualifiers: COPD type: COPD with acute exacerbation Qualified Code(s): J44.1 - Chronic obstructive pulmonary disease with (acute) exacerbation (7) Hypernatremia: Most likely secondary to poor oral intake. Patient is around 11 L negative since admission. Having episodes of hypoglycemia. Repeat BMP in evening. (8) Hypoglycemia: History of type 2 diabetes mellitus. Most likely secondary to poor oral intake and evening of steroids. D5W as above. Steroid tapering. Hold Lantus at this time Switch to insulin sliding scale low-dose protocol. (9) CHF (congestive heart failure): Acute on chronic. Appreciate echocardiogram results as above. Hold off on diuresis for now. Patient overall more than 12 L negative. Qualifiers: Heart failure type: diastolic Heart failure chronicity: acute on chronic Qualified Code(s): I50.33 - Acute on chronic diastolic (congestive) heart failure (10) Encephalopathy acute: Most likely secondary to hypoxia and hypercapnia. Cannot rule out encephalop athy secondary to pneumonia. Resolved. Continue with home dose of duloxetine. (11) Anemia: Chronic macrocytic anemia with baseline hemoglobin around 10. Appreciate vitamin B12 folate levels. Start on oral iron supplementation. Qualifiers: Anemia type: unspecified type Qualified Code(s): D64.9 - Anemia, unspecified (12) CKD stage 2 due to type 2 diabetes mellitus: Baseline creatinine around 1.1. Currently stable. Monitor fluid status daily. Hold off on any further diuresis or IV fluids for now. Medical reconciliation done for nephrotoxic drugs. Monitor BMP daily. (13) Hypertension: Goal blood pressure less than 140/ 90 mmHg with mean over 65. Blood pressure is better. Continue with metoprolol 25 mg twice daily. Chronically takes Imdur 50 mg daily, lisinopril 5 mg daily, metoprolol 100 mg twice daily along with Lasix and spironolactone. (14) Atrial fibrillation: Rate controlled. Continue with amiodarone 200 mg twice daily along with metoprolol 25 mg twice daily. Switch to oral Eliquis 5 mg twice daily. Qualifiers: Atrial fibrillation type: longstanding persistent Qualified Code(s): I48.11 - Longstanding persistent atrial fibrillation (15) Chronic anticoagulation: Previously on Eliquis, secondary to atrial fibrillation (16) Diabetes mellitus, type II: Insulin sliding scale as above. 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 Keep monterroso for now. Patient severely deconditioned. Attempts to work with physical therapy however cannot do much. He is significantly weak and definitely will need rehab. O2 requirements 6L at rest. On exertion or any movement, does desaturate. Check Chest xray today. pt more short of breath today. hold stool softeners C.diff positive. COntinue on oral vancomycin. PUlm saw pt and did bedside ultrasound. THere is no evidence of effusion Pt positive for stenotrophomonas maltophila. COntinue on oral bactrim. Monitor BMP Daily. -Continue to work with physical therapy. Find placement for patient. I have re-asked nursing staff to remove central line and remove monterroso cathether in multidisciplinary rounds today. Will need to do voiding trial. Recheck speech eval Add low intensity sliding scale insuling as oral intake improves Analgesia: Tylenol as needed Glycemic control: Lantus 37 units, sliding scale every 6 hourly Nutrition: Dysphagia level 5 diet. CODE STATUS: Full code. PUD prophylaxis: Protonix 40 mg twice daily DVT prophylaxis: Continue on Eliquis Discharge planning: Given recurrent hypoxic respiratory failure requiring high oxygen supplementation secondary to aspiration leading to left lung opacity in setting of morbid obesity, physical deconditioning patient would benefit from pulmonary and physical rehab. Patient can get best care at [facility]. Family and patient understandable and agreeable. Case management alerted. Patient declined by [facility]. Continue care at [facility] with telemetry. This documentation was created by [employer] shredded filler cutter operator software. Every effort was made to ensure accuracy of shredded filler cutter operator. Any obvious errors or omissions should be clarified with the author of the document. Attestations Medical Necessity Statement*: Pending Placement Coding Level of Care Code Acute Manager Respiratory Care for Chg Fwd Diagnoses Acute on chronic respiratory failure with hypoxia and hypercapnia J96.21; J96.22 Mucus plugging of bronchi T17.500A Pneumonia due to Acinetobacter species J15.8 Aspiration pneumonia J69.0 SHERLEY (obstructive sleep apnea) G47.33 COPD (chronic obstructive pulmonary disease) J44.1 COPD type: COPD with acute exacerbation Hypernatremia E87.0 Hypoglycemia E16.2 CHF (congestive heart failure) I50.33 Heart failure type: diastolic Heart failure chronicity: acute on chronic Encephalopathy acute G93.40 Anemia D64.9 Anemia type: unspecified type CKD stage 2 due to type 2 diabetes mellitus E11.22; N18.2 Hypertension I10 Atrial fibrillation I48.11 Atrial fibrillation type: longstanding persistent Chronic anticoagulation Z79.01 Diabetes mellitus, type II E11.65; Z79.4 Diabetes mellitus complication status: with hyperglycemia 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
[2022-02-17 17:10] LABS: Glucose Point of Care 208 mg/dL (70-110)
[2022-02-17] MEDS: insulin lispro 100 unit/1 mL SUBCUT ×2 (17:27→22:17)
[2022-02-17 21:10] LABS: Glucose Point of Care 214 mg/dL (70-110)
[2022-02-17] MEDS: atorvastatin 40 mg Tablet 80 MG PO (21:40)
[2022-02-17] MEDS: duloxetine 60 mg Capsule PO (21:40)
--- NOTE | 2022-02-17 23:31 | PC.NURSE ---
Patient took himself off bipap. O2 on per NC at 3L.
[2022-02-18] VITALS (16 sets, daily range): BP systolic 99–136; BP diastolic 50–76; PULSE 77–121; RESP 16–23; TEMP 36.5–37.3; O2SAT 92–98
[2022-02-18] MEDS: ipratropium-albuterol 3 mL Neb INHALATION ×6 (00:35→19:33)
[2022-02-18 05:09] LABS: Anion Gap 9.7 (5-19); Blood Urea Nitrogen 10 mg/dL (8-23); Calcium 8.5 mg/dL (8.5-10.5); Carbon Dioxide 35 mmol/L (22-29); Chloride 100 mmol/L (98-107); Glomerular Filtration Rate 61.3 mL/min (90-130); Glucose 120 mg/dL (65-115); Magnesium 1.8 mg/dL (1.7-2.3); Osmolality Calculated 292 mOsm/kg (285-295); Potassium 3.7 mmol/L (3.5-5.1); Sodium 141 mmol/L (136-145)
[2022-02-18 06:12] LABS: Glucose Point of Care 229 mg/dL (70-110)
[2022-02-18] MEDS: budesonide 0.5 mg/2 mL Neb INHALATION ×2 (07:32→19:33)
--- NOTE | 2022-02-18 08:45 | PM.PN ---
Subjective Subjective: Seen this AM. No acute events overnight Patient able to get up with sit and stand today on the edge of the bed. He reportedly feels better however states when he does try to exert himself he gets somewhat short of breath. He attributes this to being in bed for so long. Patient on 3 L nasal cannula saturating well. Central line removed yesterday. Insertion site appears clean. Covered with Band-Aid. Monterroso catheter also removed yesterday. Patient able to void on his own. Vitals/I&O/Wt Last Vital Signs Temp 98.0 F 02/18/22 08:00 Pulse 77 02/18/22 08:00 Resp 18 02/18/22 08:00 BP 102/69 02/18/22 08:00 Pulse Ox 94 02/18/22 08:00 O2 Del Method 02/18/22 08:00 O2 Flow Rate 3 02/18/22 07:35 FiO2 40 02/18/22 00:30 02/17/22 02/18/22 02/18/22 22:59 06:59 14:59 Intake Total 200 / 440 1090 / 1530 Output Total 1 201 400 / 601 Balance 199 / 239 690 / 929 Weight last 48 hrs Weight 188.241 kg Weight 184.975 kg Physical Exam Narrative: No acute distress, morbidly obese Const: GENERAL APPEARANCE: cooperative, comfortable, well developed and disheveled NUTRITIONAL APPEARANCE: obese morbidly obese Resp: COMMON NORMALS: clear to auscultation bilaterally AUSCULTATION: clear to auscultation bilaterally, breath sounds absent (At left base) and diminished lung sounds on the left Cardio: COMMON NORMALS: regular rate, regular rhythm, S1 normal heart sound present, S2 normal heart sound present and No murmurs present (Cardio) RATE: regular rate RHYTHM: regular rhythm HEART SOUNDS: S1 normal heart sound present and S2 normal heart sound present OTHER: Irregularly irregular with occasional tachycardia GI: COMMON NORMALS: Normal to inspection, nondistended, normoactive bowel sounds present and Soft to palpation PALPATION: Yes Soft to palpation OTHER: Large pannus Extremity: COMMON NORMALS: no joint enlargement GENERAL: Yes edema (trace, difficult to assess) Skin: OTHER: BL chronic stasis changes Urinary Catheter Management: Monterroso: Cath Placed During This Visit: yes, but has since been removed by the nurse Reason for Continuing Indwelling Catheter: Decision to DC Catheter Date Urinary Catheter Removed: 02/17/22 Time Urinary Catheter Discontinued: 10:48 Data : 02/17/22 02:19 02/18/22 04:00 A&P Assessment and plan (1) Acute on chronic respiratory failure with hypoxia and hypercapnia: Secondary to a combination of mucous plugging causing whiteout of left lung secondary to pneumonia, COPD exacerbation, obstructive sleep apnea. Post bronchoscopy and washout. Extubated on 02/07. Sputum culture consistent with Acinetobacter. MRSA negative. Repeat Sputum Cx sent. Positive for Stenotrophomonas maltophilia. Currently patient on oral Bactrim. Started on February 14, 2022. Switch antibiotics to cefepime to finish a 14-day course. Last dose on 02/13. Repeat chest x-ray shows improvement in left lung opacity. Echocardiogram results appreciated. Normal EF of 55 to 60%, RVSP of 25 mmHg, difficult to assess diastolic function given atrial fibrillation. Aggressive pulmonary toilet with chest vest. Incentive spirometry. DuoNebs every 4 hour, budesonide twice daily. Continue with acetylcysteine and hypertonic saline nebulization. Completed oral prednisone. It has been weaned off at this point. Out of bed to chair. Continue to work with physical therapy. Patient able to stand up with sit to stand at this point. BiPAP nightly. (2) Mucus plugging of bronchi: (3) Pneumonia due to Acinetobacter species: (4) Aspiration pneumonia: (5) SHERLEY (obstructive sleep apnea): Has Bipap but inconsistent use, per recent Home Health Discharge, he will report compliance but an alondra has shown use only a couple of times in last month (6) COPD (chronic obstructive pulmonary disease): Chronically on oxygen generally at 4L. Patient now on 3 L nasal cannula. Qualifiers: COPD type: COPD with acute exacerbation Qualified Code(s): J44.1 - Chronic obstructive pulmonary disease with (acute) exacerbation (7) Hypernatremia: Resolved (8) Hypoglycemia: History of type 2 diabetes mellitus. Most likely secondary to poor oral intake and evening of steroids. D5W as above. Switch to low-dose intensity sliding scale insulin. (9) CHF (congestive heart failure): Acute on chronic. Appreciate echocardiogram results as above.. Stable Qualifiers: Heart failure type: diastolic Heart failure chronicity: acute on chronic Qualified Code(s): I50.33 - Acute on chronic diastolic (congestive) heart failure (10) Encephalopathy acute: Most likely secondary to hypoxia and hypercapnia. Cannot rule out encephalopathy secondary to pneumonia. Resolved. Continue with home dose of duloxetine. (11) Anemia: Chronic macrocytic anemia with baseline hemoglobin around 10. Appreciate vitamin B12 folate levels. Start on oral iron supplementation. Qualifiers: Anemia type: unspecified type Qualified Code(s): D64.9 - Anemia, unspecified (12) CKD stage 2 due to type 2 diabetes mellitus: Baseline creatinine around 1.1. Currently stable. Monitor fluid status daily. Hold off on any further diuresis or IV fluids for now. Medical reconciliation done for nephrotoxic drugs. Monitor BMP daily. (13) Hypertension: Goal blood pressure less than 130/80 mmHg Blood pressure is better. Continue with metoprolol 25 mg twice daily. Patient blood pressure has been running 100/60-70. Continue amiodarone 200 twice daily (14) Atrial fibrillation: Rate controlled. Continue with amiodarone 200 mg twice daily along with metoprolol 25 mg twice daily. Switch to oral Eliquis 5 mg twice daily. Qualifiers: Atrial fibrillation type: longstanding persistent Qualified Code(s): I48.11 - Longstanding persistent atrial fibrillation (15) Chronic anticoagulation: Previously on Eliquis, secondary to atrial fibrillation (16) Diabetes mellitus, type II: Insulin sliding scale as above. 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 Keep monterroso for now. Able to sit to stand at this time. On 3 L nasal cannula. Patient to continue to work with physical therapy. C. difficile positive. Continue oral vancomycin. Started February 14, 2022 Stenotrophomonas maltophilia positive in sputum. Culture from 12 February. Continue on Bactrim at this time. Started February 14, 2022 Central line and Monterroso have been removed. Patient able to void on his own. Speech has advance his diet to dysphagia level 6. Continue low-dose insulin sliding scale Holding Lantus at this time Discontinue Protonix. DVT prophylaxis: Eliquis Discharge planning: Patient has been declined by multiple nursing facilities and LTAC. Insurance authorization also did not go through. Peer to peer evaluation was done with insurance. At this point patient significant other says patient cannot be taken home as he did not have the supplies. Case management trying to work to provide patient with a sit to stand, wheelchair. Patient and significant other prefer [facility] swing bed. Case management has sent out referrals. Insurance authorization is also pending. Case management is working with patient and family to set up placement. Patient is medically stable for discharge and is pending placement at this time. Continue care at [facility] with telemetry. This documentation was created by [employer] vest tailor software. Every effort was made to ensure accuracy of vest tailor. Any obvious errors or omissions should be clarified with the author of the document. Attestations Medical Necessity Statement*: Medically stable for discharge. Pending placement at this time. Coding Level of Care Code Acute [place] Maker for g Fwd Diagnoses Acute on chronic respiratory failure with hypoxia and hypercapnia J96.21; J96.22 Mucus plugging of bronchi T17.500A Pneumonia due to Acinetobacter species J15.8 Aspiration pneumonia J69.0 SHERLEY (obstructive sleep apnea) G47.33 COPD (chronic obstructive pulmonary disease) J44.1 COPD type: COPD with acute exacerbation Hypernatremia E87.0 Hypoglycemia E16.2 CHF (congestive heart failure) I50.33 Heart failure type: diastolic Heart failure chronicity: acute on chronic Encephalopathy acute G93.40 Anemia D64.9 Anemia type: unspecified type CKD stage 2 due to type 2 diabetes mellitus E11.22; N18.2 Hypertension I10 Atrial fibrillation I48.11 Atrial fibrillation type: longstanding persistent Chronic anticoagulation Z79.01 Diabetes mellitus, type II E11.65; Z79.4 Diabetes mellitus complication status: with hyperglycemia Diabetes mellitus chcf insulin use: with extermination supervisor use Goals of care, counseling/discussion Z71.89
--- NOTE | 2022-02-18 09:03 | PC.SOCIAL ---
IMM Updated Updated pt on IMM. No questions voiced. Provided pt a copy. Initialed, dated, & timed copy in chart.
[2022-02-18] MEDS: guaiFENesin 600 mg Tablet 1200 MG PO ×2 (09:33→17:35)
[2022-02-18] MEDS: sulfamethoxazole-trimeth DS 160-800 mg Tablet 1 TAB PO ×2 (09:34→20:49)
[2022-02-18] MEDS: ferrous gluconate 324 mg Tablet PO ×2 (09:35→17:35)
[2022-02-18] MEDS: apixaban 5 mg Tablet PO ×2 (09:35→20:49)
[2022-02-18] MEDS: pantoprazole 40 mg SDV IVP (09:36)
[2022-02-18] MEDS: metoprolol tartrate 25 mg Tablet PO ×2 (09:36→20:49)
[2022-02-18] MEDS: amiodarone 200 mg Tablet PO ×2 (09:36→17:35)
[2022-02-18] MEDS: insulin lispro 100 unit/1 mL SUBCUT ×3 (09:37→20:50)
[2022-02-18 11:03] LABS: Glucose Point of Care 154 mg/dL (70-110)
[2022-02-18 17:10] LABS: Glucose Point of Care 254 mg/dL (70-110)
[2022-02-18] MEDS: nystatin powder 15 gm Btl 1 APPLIC TOPICAL (17:38)
[2022-02-18] MEDS: atorvastatin 40 mg Tablet 80 MG PO (20:48)
[2022-02-18] MEDS: duloxetine 60 mg Capsule PO (20:49)
[2022-02-18 21:28] LABS: Glucose Point of Care 158 mg/dL (70-110)
[2022-02-18] MEDS: acetaminophen 325 mg Tablet 650 MG PO (23:29)
[2022-02-19] VITALS (17 sets, daily range): BP systolic 99–145; BP diastolic 59–83; PULSE 72–118; RESP 16–20; TEMP 36.4–36.9; O2SAT 90–98
[2022-02-19] MEDS: ipratropium-albuterol 3 mL Neb INHALATION ×6 (03:04→23:45)
[2022-02-19 06:32] LABS: Glucose Point of Care 186 mg/dL (70-110)
--- NOTE | 2022-02-19 06:36 | PC.NURSE ---
Report given to Ruth DUNN at this time
[2022-02-19] MEDS: budesonide 0.5 mg/2 mL Neb INHALATION ×2 (07:30→19:26)
[2022-02-19] MEDS: insulin lispro 100 unit/1 mL SUBCUT ×4 (09:15→21:27)
[2022-02-19] MEDS: sulfamethoxazole-trimeth DS 160-800 mg Tablet 1 TAB PO ×2 (09:17→19:57)
[2022-02-19] MEDS: apixaban 5 mg Tablet PO ×2 (09:18→20:03)
[2022-02-19] MEDS: metoprolol tartrate 25 mg Tablet PO ×2 (09:18→20:03)
[2022-02-19] MEDS: ferrous gluconate 324 mg Tablet PO ×2 (09:19→17:12)
[2022-02-19] MEDS: amiodarone 200 mg Tablet PO ×2 (09:19→17:13)
[2022-02-19] MEDS: guaiFENesin 600 mg Tablet 1200 MG PO ×2 (09:19→17:12)
[2022-02-19] MEDS: acetaminophen 325 mg Tablet 650 MG PO (10:24)
[2022-02-19 12:09] LABS: Glucose Point of Care 169 mg/dL (70-110)
--- NOTE | 2022-02-19 13:54 | PM.PN ---
Subjective Subjective: Hospital course appreciated. No labs were done today. Examination sitting comfortably in bed working with physical therapy. No new complaints. Currently on 3 L saturating more than 95%. Has remained hemodynamically stable and afebrile. Medications: Reviewed: Yes Vitals/I&O/Wt Last Vital Signs Temp 97.5 F L 02/19/22 11:08 Pulse 94 02/19/22 11:28 Resp 18 02/19/22 11:28 BP 145/74 02/19/22 11:08 Pulse Ox 96 02/19/22 11:28 O2 Del Method 02/19/22 11:28 O2 Flow Rate 3 02/19/22 11:28 FiO2 40 02/19/22 03:04 02/18/22 02/19/22 02/19/22 22:59 06:59 14:59 Intake Total 120 / 120 480 / 480 Output Total 350 / 350 Balance 120 / 120 -350 / -230 480 / 480 Weight last 48 hrs Weight 189.148 kg Weight 188.241 kg Physical Exam Narrative: No acute distress, morbidly obese Const: GENERAL APPEARANCE: cooperative, comfortable, well developed, disheveled, lethargic and patient mechanically ventilated NUTRITIONAL APPEARANCE: obese morbidly obese ORIENTATION/CONSCIOUSNESS: Yes lethargic Neck/C-Spine: OTHER: Thick LIJ CVC Resp: AUSCULTATION: rhonchi and diminished lung sounds on the left Cardio: COMMON NORMALS: regular rhythm, S1 normal heart sound present, S2 normal heart sound present and No murmurs present (Cardio) RATE: tachycardic RHYTHM: regular rhythm HEART SOUNDS: S1 normal heart sound present and S2 normal heart sound present OTHER: Irregularly irregular with occasional tachycardia GI: COMMON NORMALS: Normal to inspection, nondistended, normoactive bowel sounds present and Soft to palpation PALPATION: Yes Soft to palpation OTHER: Large pannus Extremity: COMMON NORMALS: no joint enlargement GENERAL: Yes edema (trace, difficult to assess) Neuro: SENSORIUM/ORIENTATION: Yes lethargic Skin: OTHER: BL chronic stasis changes Urinary Catheter Management: Lord: Cath Placed During This Visit: yes, but has since been removed by the nurse Reason for Continuing Indwelling Catheter: Decision to DC Catheter Date Urinary Catheter Removed: 02/17/22 Time Urinary Catheter Discontinued: 10:48 Data : 02/17/22 02:19 02/18/22 04:00 A&P Assessment and plan (1) Acute on chronic respiratory failure with hypoxia and hypercapnia: Secondary to a combination of mucous plugging causing whiteout of left lung secondary to pneumonia, COPD exacerbation, obstructive sleep apnea. Post bronchoscopy and washout. Extubated on 02/07. Sputum culture consistent with Acinetobacter and stenotrophomonas. MRSA negative. Has finished course of antibiotics for Acetobacter. Continue Bactrim for 7-day course. Echocardiogram results appreciated. Normal EF of 55 to 60%, RVSP of 25 mmHg, difficult to assess diastolic function given atrial fibrillation. Aggressive pulmonary toilet with chest vest. Incentive spirometry. DuoNebs every 4 hour, budesonide twice daily. Continue with acetylcysteine and hypertonic saline nebulization. Completed oral prednisone. It has been weaned off at this point. Out of bed to chair. Continue to work with physical therapy. Patient able to stand up with sit to stand at this point. BiPAP nightly. (2) Mucus plugging of bronchi: (3) Pneumonia due to Acinetobacter species: (4) Aspiration pneumonia: (5) SHERLEY (obstructive sleep apnea): Has Bipap but inconsistent use, per recent Home Health Discharge, he will report compliance but an alondra has shown use only a couple of times in last month (6) COPD (chronic obstructive pulmonary disease): Chronically on oxygen generally at 4L. Patient now on 3 L nasal cannula. Qualifiers: COPD type: COPD with acute exacerbation Qualified Code(s): J44.1 - Chronic obstructive pulmonary disease with (acute) exacerbation (7) Hypernatremia: Resolved (8) Hypoglycemia: History of type 2 diabetes mellitus. Most likely secondary to poor oral intake and evening of steroids. D5W as above. Switch to low-dose intensity sliding scale insulin. (9) CHF (congestive heart failure): Acute on chronic. Appreciate echocardiogram results as above.. Stable Qualifiers: Heart failure type: diastolic Heart failure chronicity: acute on chronic Qualified Code(s): I50.33 - Acute on chronic diastolic (congestive) heart failure (10) Encephalopathy acute: Most likely secondary to hypoxia and hypercapnia. Cannot rule out encephalopathy secondary to pneumonia. Resolved. Continue with home dose of duloxetine. (11) Anemia: Chronic macrocytic anemia with baseline hemoglobin around 10. Appreciate vitamin B12 folate levels. Start on oral iron supplementation. Qualifiers: Anemia type: unspecified type Qualified Code(s): D64.9 - Anemia, unspecified (12) CKD stage 2 due to type 2 diabetes mellitus: Baseline creatinine around 1.1. Currently stable. Monitor fluid status daily. Hold off on any further diuresis or IV fluids for now. Medical reconciliation done for nephrotoxic drugs. Monitor BMP daily. (13) Hypertension: Goal blood pressure less than 130/80 mmHg Blood pressure is better. Continue with metoprolol 25 mg twice daily. Patient blood pressure has been running 100/60-70. Continue amiodarone 200 twice daily (14) Atrial fibrillation: Rate controlled. Continue with amiodarone 200 mg twice daily along with metoprolol 25 mg twice daily. Switch to oral Eliquis 5 mg twice daily. Qualifiers: Atrial fibrillation type: longstanding persistent Qualified Code(s): I48.11 - Longstanding persistent atrial fibrillation (15) Chronic anticoagulation: Previously on Eliquis, secondary to atrial fibrillation (16) Diabetes mellitus, type II: Insulin sliding scale as above. 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 Able to sit to stand at this time. On 3 L nasal cannula. Patient to continue to work with physical therapy. C. difficile positive. Continue oral vancomycin. Started February 14, 2022 Central line and Lord have been removed. Patient able to void on his own. Speech has advance his diet to dysphagia level 6. Continue low-dose insulin sliding scale Holding Lantus at this time Discontinue Protonix. DVT prophylaxis: Eliquis Discharge planning: Patient has been declined by multiple nursing facilities and LTAC. Insurance authorization also did not go through. Peer to peer evaluation was done with insurance. At this point patient significant other says patient cannot be taken home as he did not have the supplies. Case management trying to work to provide patient with a sit to stand, wheelchair. Patient and significant other prefer [facility] swing bed. Case management has sent out referrals. Insurance authorization is also pending. Case management is working with patient and family to set up placement. Patient is medically stable for discharge and is pending placement at this time. Continue care at [facility] with telemetry. This documentation was created by [employer] rink rat software. Every effort was made to ensure accuracy of rink rat. Any obvious errors or omissions should be clarified with the author of the document. Attestations Medical Necessity Statement*: Requires further hospitalization while safe discharge planning is sought in a patient who is morbidly obese, recurrent hypoxic and hypercapnic respiratory failure secondary to obstructive sleep apnea and left lung mucous plugging from pneumonia requiring mechanical ventilation Time Spent in Patient Care: Greater than 35 minutes Coding Level of Care Code Acute [employer] Operator for g Fwd Diagnoses Acute on chronic respiratory failure with hypoxia and hypercapnia J96.21; J96.22 Mucus plugging of bronchi T17.500A Pneumonia due to Acinetobacter species J15.8 Aspiration pneumonia J69.0 SHERLEY (obstructive sleep apnea) G47.33 COPD (chronic obstructive pulmonary disease) J44.1 COPD type: COPD with acute exacerbation Hypernatremia E87.0 Hypoglycemia E16.2 CHF (congestive heart failure) I50.33 Heart failure type: diastolic Heart failure chronicity: acute on chronic Encephalopathy acute G93.40 Anemia D64.9 Anemia type: unspecified type CKD stage 2 due to type 2 diabetes mellitus E11.22; N18.2 Hypertension I10 Atrial fibrillation I48.11 Atrial fibrillation type: longstanding persistent Chronic anticoagulation Z79.01 Diabetes mellitus, type II E11.65; Z79.4 Diabetes mellitus complication status: with hyperglycemia 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
[2022-02-19 16:58] LABS: Glucose Point of Care 240 mg/dL (70-110)
[2022-02-19] MEDS: atorvastatin 40 mg Tablet 80 MG PO (20:03)
[2022-02-19] MEDS: duloxetine 60 mg Capsule PO (20:03)
[2022-02-19 20:53] LABS: Glucose Point of Care 188 mg/dL (70-110)
[2022-02-20] VITALS (14 sets, daily range): BP systolic 108–140; BP diastolic 60–74; PULSE 78–115; RESP 16–18; TEMP 36.4–37.1; O2SAT 92–98
[2022-02-20] MEDS: ipratropium-albuterol 3 mL Neb INHALATION ×4 (03:59→21:13)
[2022-02-20 04:38] LABS: Basophils # 0.1 10^3/uL (0.0-0.1); Basophils % 1.2 %; Eosinophils # 0.3 10^3/uL (0.0-0.8); Eosinophils % 4.5 %; Hematocrit 31.5 % (42.0-52.0); Hemoglobin 9.3 g/dL (11.7-16.6); Lymphocytes # 1.6 10^3/uL (0.8-4.8); Lymphocytes % 27.3 %; Mean Corpuscular HGB Conc 29.5 g/dL (30.0-36.0); Mean Corpuscular Volume 98.1 fl (80-94); Mean Platelet Volume 12.7 fL (7.4-10.4); Monocytes # 0.6 10^3/uL (0.2-0.9); Monocytes % 10.5 %; Neutrophils # 3.38 10^3/uL (1.8-7.7); Neutrophils % 56.3 %; Nucleated Red Blood Cells % 0 %; Platelet Count 113 10^3/cmm (130-400); Red Blood Count 3.21 10^6/uL (4.1-5.3); Red Cell Distribution Width 14.6 % (12.1-15.1)
[2022-02-20 05:04] LABS: Alanine Aminotransferase 28 U/L (0-41); Albumin Level 2.5 g/dL (3.5-5.2); Alkaline Phosphatase 78 U/L (40-130); Anion Gap 6.9 (5-19); Aspartate Amino Transferase 16 U/L (0-40); Blood Urea Nitrogen 9 mg/dL (8-23); Calcium 8.3 mg/dL (8.5-10.5); Carbon Dioxide 35 mmol/L (22-29); Chloride 96 mmol/L (98-107); Glomerular Filtration Rate 47.4 mL/min (90-130); Glucose 139 mg/dL (65-115); Osmolality Calculated 279 mOsm/kg (285-295); Potassium 3.9 mmol/L (3.5-5.1); Sodium 134 mmol/L (136-145); Total Bilirubin 0.2 mg/dL (0.15-1.2); Total Protein 5.5 g/dL (6.6-8.7)
[2022-02-20 06:35] LABS: Glucose Point of Care 201 mg/dL (70-110)
[2022-02-20] MEDS: budesonide 0.5 mg/2 mL Neb INHALATION ×2 (07:39→21:13)
--- NOTE | 2022-02-20 08:26 | PC.SOCIAL ---
IMM Updated Updated pt on IMM. No questions voiced. Provided pt a copy. Initialed, dated, & timed copy in chart.
[2022-02-20] MEDS: insulin lispro 100 unit/1 mL SUBCUT ×4 (08:53→21:14)
[2022-02-20] MEDS: guaiFENesin 600 mg Tablet 1200 MG PO ×2 (08:54→18:47)
[2022-02-20] MEDS: sulfamethoxazole-trimeth DS 160-800 mg Tablet 1 TAB PO ×2 (08:54→20:05)
[2022-02-20] MEDS: metoprolol tartrate 25 mg Tablet PO ×2 (08:54→15:52)
[2022-02-20] MEDS: apixaban 5 mg Tablet PO ×2 (08:55→20:05)
[2022-02-20] MEDS: amiodarone 200 mg Tablet PO ×2 (08:55→18:47)
[2022-02-20] MEDS: ferrous gluconate 324 mg Tablet PO ×2 (08:55→18:47)
--- NOTE | 2022-02-20 09:58 | PC.NURSE ---
patient was transferred with a sit to stand and done a fantastic job would use a x2 assist. Patient's was trying to help.
[2022-02-20 12:00] LABS: Glucose Point of Care 316 mg/dL (70-110)
--- NOTE | 2022-02-20 12:39 | P.PN_ITS ---
Subjective Subjective: No acute events overnight. Patient seen today with spouse at bedside. Patient is awake and alert. On 3 L. States he feels as if he is back to his back to baseline. States diarrhea is less, more formed but still having around 3-4 bowel movements a day. Spouse is concerned that patient's urine is becoming more concentrated. We discussed that he should be drinking more fluids. Patient agrees that he is drinking less than what he showed and is agreeable to drink more. Denies any nausea, vomiting, headache. We discussed the discharge planning in detail again. We discussed that unfortunately patient has been declined by multiple SNF, select an only option going forward would be to see if he can be accepted at a swing bed or with home health though multiple home health company needs have also declined him. We discussed that if unfortunately we are not able to get any facilities to accept him the plan will be to discharge home with home health if possible within next 24 hours. Medications: Reviewed: Yes Vitals/I&O/Wt Last Vital Signs Temp 98.2 F 02/20/22 12:00 Pulse 112 H 02/20/22 12:00 Resp 18 02/20/22 12:00 BP 131/69 02/20/22 12:00 Pulse Ox 98 02/20/22 12:00 O2 Del Method 02/20/22 12:00 O2 Flow Rate 3 02/20/22 12:00 FiO2 40 02/19/22 23:48 02/19/22 02/20/22 02/20/22 22:59 06:59 14:59 Intake Total 480 / 960 Output Total 250 / 250 Balance 480 / 960 -250 / 710 Weight last 48 hrs Weight 180.938 kg Weight 189.148 kg Physical Exam Narrative: No acute distress, morbidly obese Const: GENERAL APPEARANCE: cooperative, comfortable, well developed, disheveled, lethargic and patient mechanically ventilated NUTRITIONAL APPEARANCE: obese morbidly obese ORIENTATION/CONSCIOUSNESS: Yes lethargic Neck/C-Spine: OTHER: Thick LIJ CVC Resp: AUSCULTATION: rhonchi and diminished lung sounds on the left Cardio: COMMON NORMALS: regular rhythm, S1 normal heart sound present, S2 normal heart sound present and No murmurs present (Cardio) RATE: tachycardic RHYTHM: regular rhythm HEART SOUNDS: S1 normal heart sound present and S2 normal heart sound present OTHER: Irregularly irregular with occasional tachycardia GI: COMMON NORMALS: Normal to inspection, nondistended, normoactive bowel sounds present and Soft to palpation PALPATION: Yes Soft to palpation OTHER: Large pannus Extremity: COMMON NORMALS: no joint enlargement GENERAL: Yes edema (trace, difficult to assess) Neuro: SENSORIUM/ORIENTATION: Yes lethargic Skin: OTHER: BL chronic stasis changes Urinary Catheter Management: Lord: Cath Placed During This Visit: yes, but has since been removed by the nurse Reason for Continuing Indwelling Catheter: Decision to DC Catheter Date Urinary Catheter Removed: 02/17/22 Time Urinary Catheter Discontinued: 10:48 Data : 02/20/22 04:08 02/20/22 04:08 A&P Assessment and plan (1) Acute on chronic respiratory failure with hypoxia and hypercapnia: Secondary to a combination of mucous plugging causing whiteout of left lung secondary to pneumonia, COPD exacerbation, obstructive sleep apnea. Post bronchoscopy and washout. Extubated on 02/07. Sputum culture consistent with Acinetobacter and stenotrophomonas. MRSA negative. Has finished course of antibiotics for Acetobacter. Continue Bactrim for 7-day course. Echocardiogram results appreciated. Normal EF of 55 to 60%, RVSP of 25 mmHg, difficult to assess diastolic function given atrial fibrillation. Aggressive pulmonary toilet with chest vest. Incentive spirometry. DuoNebs every 4 hour, budesonide twice daily. Continue with acetylcysteine and hypertonic saline nebulization. Completed oral prednisone. It has been weaned off at this point. Out of bed to chair. Continue to work with physical therapy. Patient able to stand up with sit to stand at this point. BiPAP nightly. (2) Mucus plugging of bronchi: (3) Pneumonia due to Acinetobacter species: (4) Aspiration pneumonia: (5) SHERLEY (obstructive sleep apnea): Has Bipap but inconsistent use, per recent Home Health Discharge, he will report compliance but an alondra has shown use only a couple of times in last month (6) COPD (chronic obstructive pulmonary disease): Chronically on oxygen generally at 4L. Patient now on 3 L nasal cannula. Qualifiers: COPD type: COPD with acute exacerbation Qualified Code(s): J44.1 - Chronic obstructive pulmonary disease with (acute) exacerbation (7) Hypernatremia: Resolved (8) Hypoglycemia: History of type 2 diabetes mellitus. Most likely secondary to poor oral intake and evening of steroids. D5W as above. Switch to low-dose intensity sliding scale insulin. (9) CHF (congestive heart failure): Acute on chronic. Appreciate echocardiogram results as above.. Stable Qualifiers: Heart failure type: diastolic Heart failure chronicity: acute on chronic Qualified Code(s): I50.33 - Acute on chronic diastolic (congestive) heart failure (10) Encephalopathy acute: Most likely secondary to hypoxia and hypercapnia. Cannot rule out encephalo carmelo secondary to pneumonia. Resolved. Continue with home dose of duloxetine. (11) Anemia: Chronic macrocytic anemia with baseline hemoglobin around 10. Appreciate vitamin B12 folate levels. Start on oral iron supplementation. Qualifiers: Anemia type: unspecified type Qualified Code(s): D64.9 - Anemia, unspecified (12) CKD stage 2 due to type 2 diabetes mellitus: Baseline creatinine around 1.1. Currently stable. Monitor fluid status daily. Hold off on any further diuresis or IV fluids for now. Medical reconciliation done for nephrotoxic drugs. Monitor BMP daily. (13) Hypertension: Goal blood pressure less than 130/80 mmHg Blood pressure is better. Continue with metoprolol 25 mg twice daily. Patient blood pressure has been running 100/60-70. Continue amiodarone 200 twice daily (14) Atrial fibrillation: Rate controlled. Continue with amiodarone 200 mg twice daily along with metoprolol 25 mg twice daily. Switch to oral Eliquis 5 mg twice daily. Qualifiers: Atrial fibrillation type: longstanding persistent Qualified Code(s): I48.11 - Longstanding persistent atrial fibrillation (15) Chronic anticoagulation: Previously on Eliquis, secondary to atrial fibrillation (16) Diabetes mellitus, type II: Insulin sliding scale as above. A1c 9.1 on 12/03/2021 Qualifiers: Diabetes mellitus complication status: with hyperglycemia Diabetes mellitus long term care social worker insulin use: with longterm use Qualified Code(s): E11.65 - Type 2 diabetes mellitus with hyperglycemia; Z79.4 - superintendent terminal (current) use of insulin (17) Goals of care, counseling/discussion: Plan Lymphedema Chronically on duloxetine Chronically on vitamin C, multivitamin, vitamin D, vitamin B12 Recently discharged from home health services, last week Constipation: Hold lactulose. Plan for the day: Last day of Bactrim tomorrow. Continue vancomycin for 14 days for antibiotics. Increased dose of metoprolol to 50 mg twice daily. Add Lantus 15 units at bedtime. Encourage patient to drink more fluids. Discharge planning: Patient has been declined by multiple nursing facilities and LTAC. Insurance authorization also did not go through. Peer to peer evaluation was done with insurance. At this point patient significant other says patient cannot be taken home as he did not have the supplies. Case management trying to work to provide patient with a sit to stand, wheelchair. Patient and significant other prefer [facility] bed. Case management has sent out referrals. Insurance authorization is also pending. Case management is working with patient and family to set up placement. Patient is medically stable for discharge and is pending placement at this time. Plan to discharge in next 24 hours either home with or without home health versus swing bed if patient is accepted. Continue care at [facility] with telemetry. This documentation was created by [employer] drafter apprentice software. Every effort was made to ensure accuracy of drafter apprentice. Any obvious errors or omissions should be clarified with the author of the document. Attestations Medical Necessity Statement*: Requires further hospitalization while safe discharge planning is sought given morbid obesity, recurrent hypoxic hypercapnic respiratory failure secondary to aspiration pneumonia leading to left lung mucous plugging, atrial fibrillation, heart failure as patient is at a high risk of readmission with respiratory failure without aggressive physical and pulmonary therapy Time Spent in Patient Care: Greater than 35 minutes Coding Level of Care Code Acute Camp Attendant for g Fwd Diagnoses Acute on chronic respiratory failure with hypoxia and hypercapnia J96.21; J96.22 Mucus plugging of bronchi T17.500A Pneumonia due to Acinetobacter species J15.8 Aspiration pneumonia J69.0 SHERLEY (obstructive sleep apnea) G47.33 COPD (chronic obstructive pulmonary disease) J44.1 COPD type: COPD with acute exacerbation Hypernatremia E87.0 Hypoglycemia E16.2 CHF (congestive heart failure) I50.33 Heart failure type: diastolic Heart failure chronicity: acute on chronic Encephalopathy acute G93.40 Anemia D64.9 Anemia type: unspecified type CKD stage 2 due to type 2 diabetes mellitus E11.22; N18.2 Hypertension I10 Atrial fibrillation I48.11 Atrial fibrillation type: longstanding persistent Chronic anticoagulation Z79.01 Diabetes mellitus, type II E11.65; Z79.4 Diabetes mellitus complication status: with hyperglycemia Diabetes mellitus longterm insulin use: with long term care social worker use Goals of care, counseling/discussion Z71.89
[2022-02-20 16:48] LABS: Glucose Point of Care 294 mg/dL (70-110)
[2022-02-20] MEDS: metoprolol tartrate 50 mg Tablet PO (20:05)
[2022-02-20] MEDS: atorvastatin 40 mg Tablet 80 MG PO (20:05)
[2022-02-20] MEDS: duloxetine 60 mg Capsule PO (20:06)
[2022-02-20 21:04] LABS: Glucose Point of Care 203 mg/dL (70-110)
[2022-02-20] MEDS: insulin glargine 100 units/1 mL 15 UNIT SUBCUT (21:14)
[2022-02-21] VITALS (13 sets, daily range): BP systolic 100–117; BP diastolic 60–81; PULSE 56–104; RESP 12–24; TEMP 36.7–36.8; O2SAT 91–98
[2022-02-21] MEDS: ipratropium-albuterol 3 mL Neb INHALATION ×6 (00:02→19:52)
[2022-02-21 06:18] LABS: Glucose Point of Care 172 mg/dL (70-110)
[2022-02-21] MEDS: ferrous gluconate 324 mg Tablet PO ×2 (08:14→17:35)
[2022-02-21] MEDS: guaiFENesin 600 mg Tablet 1200 MG PO ×2 (08:14→17:35)
[2022-02-21] MEDS: apixaban 5 mg Tablet PO ×2 (08:15→21:13)
[2022-02-21] MEDS: metoprolol tartrate 50 mg Tablet PO ×2 (08:15→21:13)
[2022-02-21] MEDS: sulfamethoxazole-trimeth DS 160-800 mg Tablet 1 TAB PO (08:15)
[2022-02-21] MEDS: amiodarone 200 mg Tablet PO ×2 (08:15→17:35)
[2022-02-21] MEDS: budesonide 0.5 mg/2 mL Neb INHALATION ×2 (08:25→19:52)
[2022-02-21] MEDS: insulin lispro 100 unit/1 mL SUBCUT ×4 (09:00→21:21)
[2022-02-21 11:32] LABS: Glucose Point of Care 224 mg/dL (70-110)
--- NOTE | 2022-02-21 12:53 | P.PN_ITS ---
Subjective Subjective: No acute events overnight. Patient sitting up in chair with spouse at bedside. Working with physical therapy. Getting better. Denies any nausea vomiting, headache. Wants to go home as soon as possible but as per spouse stated still do not have any equipments for him to go home. We discussed that patient has been accepted at [facility] and we are awaiting authorization. If you are not able to get authorization then the plan would be for him to go home. Patient is getting frustrated but is agreeable to stay for now. Otherwise no new complaints. Medications: Reviewed: Yes Vitals/I&O/Wt Last Vital Signs Temp 98.2 F 02/21/22 08:00 Pulse 97 02/21/22 11:49 Resp 20 H 02/21/22 11:49 BP 117/81 02/21/22 08:00 Pulse Ox 96 02/21/22 11:49 O2 Del Method 02/21/22 11:49 O2 Flow Rate 3 02/21/22 11:49 FiO2 40 02/21/22 03:12 02/20/22 02/21/22 02/21/22 22:59 06:59 14:59 Intake Total 240 / 240 Balance 240 / 240 Weight last 48 hrs Weight 181.55 kg Weight 180.938 kg Physical Exam Narrative: No acute distress, morbidly obese Const: GENERAL APPEARANCE: cooperative, comfortable, well developed, disheveled, lethargic and patient mechanically ventilated NUTRITIONAL APPEARANCE: obese morbidly obese ORIENTATION/CONSCIOUSNESS: Yes lethargic Neck/C-Spine: OTHER: Thick LIJ CVC Resp: AUSCULTATION: rhonchi and diminished lung sounds on the left Cardio: COMMON NORMALS: regular rhythm, S1 normal heart sound present, S2 normal heart sound present and No murmurs present (Cardio) RATE: tachycardic RHYTHM: regular rhythm HEART SOUNDS: S1 normal heart sound present and S2 normal heart sound present OTHER: Irregularly irregular with occasional tachycardia GI: COMMON NORMALS: Normal to inspection, nondistended, normoactive bowel sounds present and Soft to palpation PALPATION: Yes Soft to palpation OTHER: Large pannus Extremity: COMMON NORMALS: no joint enlargement GENERAL: Yes edema (trace, difficult to assess) Neuro: SENSORIUM/ORIENTATION: Yes lethargic Skin: OTHER: BL chronic stasis changes Urinary Catheter Management: Lord: Cath Placed During This Visit: yes, but has since been removed by the nurse Reason for Continuing Indwelling Catheter: Decision to DC Catheter Date Urinary Catheter Removed: 02/17/22 Time Urinary Catheter Discontinued: 10:48 Data : 02/20/22 04:08 02/20/22 04:08 A&P Assessment and plan (1) Acute on chronic respiratory failure with hypoxia and hypercapnia: Secondary to a combination of mucous plugging causing whiteout of left lung secondary to pneumonia, COPD exacerbation, obstructive sleep apnea. Post bronchoscopy and washout. Extubated on 02/07. Sputum culture consistent with Acinetobacter and stenotrophomonas. MRSA negative. Has finished course of antibiotics for Acetobacter. Continue Bactrim for 7-day course. Echocardiogram results appreciated. Normal EF of 55 to 60%, RVSP of 25 mmHg, difficult to assess diastolic function given atrial fibrillation. Aggressive pulmonary toilet with chest vest. Incentive spirometry. DuoNebs every 4 hour, budesonide twice daily. Continue with acetylcysteine and hypertonic saline nebulization. Completed oral prednisone. It has been weaned off at this point. Out of bed to chair. Continue to work with physical therapy. Patient able to stand up with sit to stand at this point. BiPAP nightly. (2) Mucus plugging of bronchi: (3) Pneumonia due to Acinetobacter species: (4) Aspiration pneumonia: (5) SHERLEY (obstructive sleep apnea): Has Bipap but inconsistent use, per recent Home Health Discharge, he will report compliance but an alondra has shown use only a couple of times in last month (6) COPD (chronic obstructive pulmonary disease): Chronically on oxygen generally at 4L. Patient now on 3 L nasal cannula. Qualifiers: COPD type: COPD with acute exacerbation Qualified Code(s): J44.1 - Chronic obstructive pulmonary disease with (acute) exacerbation (7) Hypernatremia: Resolved (8) Hypoglycemia: History of type 2 diabetes mellitus. Most likely secondary to poor oral intake and evening of steroids. D5W as above. Switch to low-dose intensity sliding scale insulin. (9) CHF (congestive heart failure): Acute on chronic. Appreciate echocardiogram results as above.. Stable Qualifiers: Heart failure type: diastolic Heart failure chronicity: acute on ch ronic Qualified Code(s): I50.33 - Acute on chronic diastolic (congestive) heart failure (10) Encephalopathy acute: Most likely secondary to hypoxia and hypercapnia. Cannot rule out encephalopathy secondary to pneumonia. Resolved. Continue with home dose of duloxetine. (11) Anemia: Chronic macrocytic anemia with baseline hemoglobin around 10. Appreciate vitamin B12 folate levels. Start on oral iron supplementation. Qualifiers: Anemia type: unspecified type Qualified Code(s): D64.9 - Anemia, unspecified (12) CKD stage 2 due to type 2 diabetes mellitus: Baseline creatinine around 1.1. Currently stable. Monitor fluid status daily. Hold off on any further diuresis or IV fluids for now. Medical reconciliation done for nephrotoxic drugs. Monitor BMP daily. (13) Hypertension: Goal blood pressure less than 130/80 mmHg Blood pressure is better. Continue with metoprolol 25 mg twice daily. Patient blood pressure has been running 100/60-70. Continue amiodarone 200 twice daily (14) Atrial fibrillation: Rate controlled. Continue with amiodarone 200 mg twice daily along with metoprolol 25 mg twice daily. Switch to oral Eliquis 5 mg twice daily. Qualifiers: Atrial fibrillation type: longstanding persistent Qualified Code(s): I48.11 - Longstanding persistent atrial fibrillation (15) Chronic anticoagulation: Previously on Eliquis, secondary to atrial fibrillation (16) Diabetes mellitus, type II: Insulin sliding scale as above. A1c 9.1 on 12/03/2021 Qualifiers: Diabetes mellitus complication status: with hyperglycemia Diabetes mellitus intermission coordinator insulin use: with intermission coordinator use Qualified Code(s): E11.65 - Type 2 diabetes mellitus with hyperglycemia; Z79.4 - rodent exterminator (current) use of insulin (17) Goals of care, counseling/discussion: Plan Lymphedema Chronically on duloxetine Chronically on vitamin C, multivitamin, vitamin D, vitamin B12 Recently discharged from home health services, last week Constipation: Hold lactulose. Plan for the day: Continue vancomycin for 14 days. Increase Lantus to 25 units at bedtime. Encourage patient to drink more fluids. Repeat labs including CBC and CMP in AM. Discharge planning: Patient has been declined by multiple nursing facilities and LTAC. Insurance authorization also did not go through. Peer to peer evaluation was done with insurance. At this point patient significant other says patient cannot be taken home as he did not have the supplies. Case management trying to work to provide patient with a sit to stand, wheelchair. [facility] Case management has sent out referrals. Insurance authorization is also pending. Case management is working with patient and family to set up placement. Patient is medically stable for discharge and is pending placement at this time. Patient has been accepted at [facility]. Awaiting authorization. If unable to get authorization we will plan to discharge home with or without home health. Continue care at [facility] with telemetry. This documentation was created by [employer] scowman software. Every effort was made to ensure accuracy of scowman. Any obvious errors or omissions should be clarified with the author of the document. Attestations Medical Necessity Statement*: Requires further hospitalization for safe discharge planning in a patient who is morbidly obese, increased risk factors for recurrent hypercapnic hypoxic respiratory failure with left lung mucous plugging secondary to aspiration pneumonia, physical deconditioning Time Spent in Patient Care: less than 15 minutes Coding Level of Care Code Acute Laboratory Engineer for Chg Fwd Diagnoses Acute on chronic respiratory failure with hypoxia and hypercapnia J96.21; J96.22 Mucus plugging of bronchi T17.500A Pneumonia due to Acinetobacter species J15.8 Aspiration pneumonia J69.0 SHERLEY (obstructive sleep apnea) G47.33 COPD (chronic obstructive pulmonary disease) J44.1 COPD type: COPD with acute exacerbation Hypernatremia E87.0 Hypoglycemia E16.2 CHF (congestive heart failure) I50.33 Heart failure type: diastolic Heart failure chronicity: acute on chronic Encephalopathy acute G93.40 Anemia D64.9 Anemia type: unspecified type CKD stage 2 due to type 2 diabetes mellitus E11.22; N18.2 Hypertension I10 Atrial fibrillation I48.11 Atrial fibrillation type: longstanding persistent Chronic anticoagulation Z79.01 Diabetes mellitus, type II E11.65; Z79.4 Diabetes mellitus complication status: with hyperglycemia Diabetes mellitus snf insulin use: with snf use Goals of care, counseling/discussion Z71.89
--- NOTE | 2022-02-21 15:30 | PC.OT ---
HOLD OT TREATMENT TODAY DUE TO PATIENT POSSIBLE D/C TODAY.
[2022-02-21 17:58] LABS: Glucose Point of Care 249 mg/dL (70-110)
[2022-02-21 21:03] LABS: Glucose Point of Care 208 mg/dL (70-110)
[2022-02-21] MEDS: insulin glargine 100 units/1 mL 15 UNIT SUBCUT (21:13)
[2022-02-21] MEDS: atorvastatin 40 mg Tablet 80 MG PO (21:13)
[2022-02-21] MEDS: duloxetine 60 mg Capsule PO (21:13)
[2022-02-22] VITALS (10 sets, daily range): BP systolic 92–111; BP diastolic 63–79; PULSE 72–107; RESP 14–20; TEMP 36.7–37.3; O2SAT 90–95
[2022-02-22 01:57] LABS: Basophils # 0.1 10^3/uL (0.0-0.1); Basophils % 0.9 %; Eosinophils # 0.3 10^3/uL (0.0-0.8); Eosinophils % 4.7 %; Hematocrit 31.5 % (42.0-52.0); Hemoglobin 9.3 g/dL (11.7-16.6); Lymphocytes # 1.8 10^3/uL (0.8-4.8); Lymphocytes % 32.2 %; Mean Corpuscular HGB Conc 29.5 g/dL (30.0-36.0); Mean Corpuscular Volume 98.1 fl (80-94); Mean Platelet Volume 11.4 fL (7.4-10.4); Monocytes # 0.5 10^3/uL (0.2-0.9); Monocytes % 8.7 %; Neutrophils # 2.92 10^3/uL (1.8-7.7); Neutrophils % 53.3 %; Nucleated Red Blood Cells % 0 %; Platelet Count 125 10^3/cmm (130-400); Red Blood Count 3.21 10^6/uL (4.1-5.3); Red Cell Distribution Width 14.6 % (12.1-15.1); White Blood Count 5.5 10^3/uL (4.0-10.0)
[2022-02-22 02:25] LABS: Alanine Aminotransferase 25 U/L (0-41); Albumin Level 2.8 g/dL (3.5-5.2); Alkaline Phosphatase 78 U/L (40-130); Aspartate Amino Transferase 17 U/L (0-40); Blood Urea Nitrogen 8 mg/dL (8-23); Calcium 8.2 mg/dL (8.5-10.5); Carbon Dioxide 36 mmol/L (22-29); Chloride 101 mmol/L (98-107); Globulin 2.8 g/dL (1.3-4.6); Glomerular Filtration Rate 47.4 mL/min (90-130); Glucose 171 mg/dL (65-115); Osmolality Calculated 298 mOsm/kg (285-295); Sodium 143 mmol/L (136-145); Total Bilirubin 0.2 mg/dL (0.15-1.2); Total Protein 5.6 g/dL (6.6-8.7)
[2022-02-22 02:39] LABS: Anion Gap 10.3 (5-19); Potassium 4.3 mmol/L (3.5-5.1)
[2022-02-22] MEDS: ipratropium-albuterol 3 mL Neb INHALATION ×4 (03:37→11:44)
[2022-02-22 06:23] LABS: Glucose Point of Care 163 mg/dL (70-110)
[2022-02-22] MEDS: budesonide 0.5 mg/2 mL Neb INHALATION (08:04)
[2022-02-22] MEDS: ferrous gluconate 324 mg Tablet PO (08:55)
[2022-02-22] MEDS: amiodarone 200 mg Tablet PO (08:55)
[2022-02-22] MEDS: guaiFENesin 600 mg Tablet 1200 MG PO (08:55)
[2022-02-22] MEDS: metoprolol tartrate 50 mg Tablet PO (08:56)
[2022-02-22] MEDS: apixaban 5 mg Tablet PO (08:56)
[2022-02-22] MEDS: insulin lispro 100 unit/1 mL SUBCUT ×2 (08:56→13:14)
--- NOTE | 2022-02-22 10:25 | PC.SOCIAL ---
IMM Updated Updated pt on IMM. No questions voiced. Provided pt a copy. Initialed, dated, & timed copy in chart.
[2022-02-22 11:47] LABS: Glucose Point of Care 207 mg/dL (70-110)
--- NOTE | 2022-02-22 13:12 | PM.PN ---
Subjective Subjective: Status quo. No acute events. No new complaints. Awaiting authorization for possible transfer to [facility]. Patient frustrated about being in the hospital this long. We discussed that if by Sunday we do not get prior authorization plan will be to discharge home with or without home health. Patient is agreeable and thankful. Spouse at bedside. Medications: Reviewed: Yes Vitals/I&O/Wt Last Vital Signs Temp 98.0 F 02/22/22 12:00 Pulse 76 02/22/22 12:00 Resp 16 02/22/22 12:00 BP 111/79 02/22/22 12:00 Pulse Ox 94 02/22/22 12:00 O2 Del Method 02/22/22 12:00 O2 Flow Rate 3 02/22/22 12:00 FiO2 40 02/22/22 00:00 02/21/22 02/22/22 02/22/22 22:59 06:59 14:59 Intake Total 1000 / 1240 600 / 600 Output Total 450 / 450 Balance 1000 / 1240 150 / 150 Weight last 48 hrs Weight 181.437 kg Weight 181.55 kg Physical Exam Narrative: No acute distress, morbidly obese Const: GENERAL APPEARANCE: cooperative, comfortable, well developed, disheveled, lethargic and patient mechanically ventilated NUTRITIONAL APPEARANCE: obese morbidly obese ORIENTATION/CONSCIOUSNESS: Yes lethargic Neck/C-Spine: OTHER: Thick LIJ CVC Resp: AUSCULTATION: rhonchi and diminished lung sounds on the left Cardio: COMMON NORMALS: regular rhythm, S1 normal heart sound present, S2 normal heart sound present and No murmurs present (Cardio) RATE: tachycardic RHYTHM: regular rhythm HEART SOUNDS: S1 normal heart sound present and S2 normal heart sound present OTHER: Irregularly irregular with occasional tachycardia GI: COMMON NORMALS: Normal to inspection, nondistended, normoactive bowel sounds present and Soft to palpation PALPATION: Yes Soft to palpation OTHER: Large pannus Extremity: COMMON NORMALS: no joint enlargement GENERAL: Yes edema (trace, difficult to assess) Neuro: SENSORIUM/ORIENTATION: Yes lethargic Skin: OTHER: BL chronic stasis changes Urinary Catheter Management: Lord: Cath Placed During This Visit: yes, but has since been removed by the nurse Reason for Continuing Indwelling Catheter: Decision to DC Catheter Date Urinary Catheter Removed: 02/17/22 Time Urinary Catheter Discontinued: 10:48 Data : 02/22/22 01:49 02/22/22 01:49 A&P Assessment and plan (1) Acute on chronic respiratory failure with hypoxia and hypercapnia: Secondary to a combination of mucous plugging causing whiteout of left lung secondary to pneumonia, COPD exacerbation, obstructive sleep apnea. Post bronchoscopy and washout. Extubated on 02/07. Sputum culture consistent with Acinetobacter and stenotrophomonas. MRSA negative. Has finished course of antibiotics for Acetobacter. Continue Bactrim for 7-day course. Echocardiogram results appreciated. Normal EF of 55 to 60%, RVSP of 25 mmHg, difficult to assess diastolic function given atrial fibrillation. Aggressive pulmonary toilet with chest vest. Incentive spirometry. DuoNebs every 4 hour, budesonide twice daily. Continue with acetylcysteine and hypertonic saline nebulization. Completed oral prednisone. It has been weaned off at this point. Out of bed to chair. Continue to work with physical therapy. Patient able to stand up with sit to stand at this point. BiPAP nightly. (2) Mucus plugging of bronchi: (3) Pneumonia due to Acinetobacter species: (4) Aspiration pneumonia: (5) SHERLEY (obstructive sleep apnea): Has Bipap but inconsistent use, per recent Home Health Discharge, he will report compliance but an alondra has shown use only a couple of times in last month (6) COPD (chronic obstructive pulmonary disease): Chronically on oxygen generally at 4L. Patient now on 3 L nasal cannula. Qualifiers: COPD type: COPD with acute exacerbation Qualified Code(s): J44.1 - Chronic obstructive pulmonary disease with (acute) exacerbation (7) Hypernatremia: Resolved (8) Hypoglycemia: History of type 2 diabetes mellitus. Most likely secondary to poor oral intake and evening of steroids. D5W as above. Switch to low-dose intensity sliding scale insulin. (9) CHF (congestive heart failure): Acute on chronic. Appreciate echocardiogram results as above.. Stable Qualifiers: Heart failure type: diastolic Heart failure chronicity: acute on chronic Qualified Code(s): I50.33 - Acute on chronic diastolic (congestive) heart failure (10) Encephalopathy acute: Most likely secondary to hypoxia and hypercapnia. Cannot rule out encephalopathy secondary to pneumonia. Resolved. Continue with home dose of duloxetine. (11) Anemia: Chronic macrocytic anemia with baseline hemoglobin around 10. Appreciate vitamin B12 folate levels. Start on oral iron supplementation. Qualifiers: Anemia type: unspecified type Qualified Code(s): D64.9 - Anemia, unspecified (12) CKD stage 2 due to type 2 diabetes mellitus: Baseline creatinine around 1.1. Currently stable. Monitor fluid status daily. Hold off on any further diuresis or IV fluids for now. Medical reconciliation done for nephrotoxic drugs. Monitor BMP daily. (13) Hypertension: Goal blood pressure less than 130/80 mmHg Blood pressure is better. Continue with metoprolol 25 mg twice daily. Patient blood pressure has been running 100/60-70. Continue amiodarone 200 twice daily (14) Atrial fibrillation: Rate controlled. Continue with amiodarone 200 mg twice daily along with metoprolol 25 mg twice daily. Switch to oral Eliquis 5 mg twice daily. Qualifiers: Atrial fibrillation type: longstanding persistent Qualified Code(s): I48.11 - Longstanding persistent atrial fibrillation (15) Chronic anticoagulation: Previously on Eliquis, secondary to atrial fibrillation (16) Diabetes mellitus, type II: Insulin sliding scale as above. A1c 9.1 on 12/03/2021 Qualifiers: Diabetes mellitus complication status: with hyperglycemia Diabetes mellitus prison insulin use: with prison use Qualified Code(s): E11.65 - Type 2 diabetes mellitus with hyperglycemia; Z79.4 - penitentiary (current) use of insulin (17) Goals of care, counseling/discussion: Plan Lymphedema Chronically on duloxetine Chronically on vitamin C, multivitamin, vitamin D, vitamin B12 Recently discharged from home health services, last week Constipation: Hold lactulose. Plan for the day: Continue vancomycin for 14 days. Increase Lantus to 25 units at bedtime. Encourage patient to drink more fluids. Repeat labs appreciated. Stable. Discharge planning: Patient has been declined by multiple nursing facilities and LTAC. Insurance authorization also did not go through. Peer to peer evaluation was done with insurance. At this point patient significant other says patient cannot be taken home as he did not have the supplies. Case management trying to work to provide patient with a sit to stand, wheelchair. Patient and significant other prefer [facility]. Case management has sent out referrals. Insurance authorization is also pending. Case management is working with patient and family to set up placement. Patient is medically stable for discharge and is pending placement at this time. Patient has been accepted at [facility]. Awaiting authorization. If unable to get authorization we will plan to discharge home with or without home health. Continue care at [facility] with telemetry. This documentation was created by [employer] physically impaired teacher software. Every effort was made to ensure accuracy of physically impaired teacher. Any obvious errors or omissions should be clarified with the author of the document. Attestations Medical Necessity Statement*: Continue current treatment. Patient will require further hospitalization [facility]. Planning is sought as patient is a high risk of recurrent admissions, fall, hypercapnic respiratory failure secondary to severe SHERLEY, with obesity Time Spent in Patient Care: less than 15 minutes Coding Level of Care Code Acute Statistics Intern for g Fwd Diagnoses Acute on chronic respiratory failure with hypoxia and hypercapnia J96.21; J96.22 Mucus plugging of bronchi T17.500A Pneumonia due to Acinetobacter species J15.8 Aspiration pneumonia J69.0 SHERLEY (obstructive sleep apnea) G47.33 COPD (chronic obstructive pulmonary disease) J44.1 COPD type: COPD with acute exacerbation Hypernatremia E87.0 Hypoglycemia E16.2 CHF (congestive heart failure) I50.33 Heart failure type: diastolic Heart failure chronicity: acute on chronic Encephalopathy acute G93.40 Anemia D64.9 Anemia type: unspecified type CKD stage 2 due to type 2 diabetes mellitus E11.22; N18.2 Hypertension I10 Atrial fibrillation I48.11 Atrial fibrillation type: longstanding persistent Chronic anticoagulation Z79.01 Diabetes mellitus, type II E11.65; Z79.4 Diabetes mellitus complication status: with hyperglycemia Diabetes mellitus intermodal dispatcher insulin use: with intermodal dispatcher use Goals of care, counseling/discussion Z71.89
--- NOTE | 2022-02-22 13:30 | PM.DCS ---
Discharge Providers Date of Admission: 01/30/22 16:55 Date of Discharge: February 22, 2022 Attending Provider at Admission: Kaylee Meng MD Attending Provider at Discharge: Perez Mcknight MD Consults: Pulmonology/critical care: Dr. Tran Primary Care Provider: Mason Giles MD Diagnoses at Discharge Discharge Diagnosis (1) Acute on chronic respiratory failure with hypoxia and hypercapnia: Status: Acute (2) Mucus plugging of bronchi: Status: Acute (3) Pneumonia due to Acinetobacter species: Status: Acute (4) Aspiration pneumonia: Status: Acute (5) SHERLEY (obstructive sleep apnea): Status: Chronic (6) COPD (chronic obstructive pulmonary disease): Status: Chronic Qualifiers: COPD type: COPD with acute exacerbation Qualified Code(s): J44.1 - Chronic obstructive pulmonary disease with (acute) exacerbation (7) Hypernatremia: Status: Acute (8) Hypoglycemia: Status: Acute (9) CHF (congestive heart failure): Status: Chronic Qualifiers: Heart failure type: diastolic Heart failure chronicity: acute on chronic Qualified Code(s): I50.33 - Acute on chronic diastolic (congestive) heart failure (10) Encephalopathy acute: Status: Acute (11) Anemia: Status: Acute Qualifiers: Anemia type: unspecified type Qualified Code(s): D64.9 - Anemia, unspecified (12) CKD stage 2 due to type 2 diabetes mellitus: Status: Chronic (13) Hypertension: Status: Chronic (14) Atrial fibrillation: Status: Chronic Qualifiers: Atrial fibrillation type: longstanding persistent Qualified Code(s): I48.11 - Longstanding persistent atrial fibrillation (15) Chronic anticoagulation: Status: Chronic Permanent problem details: Feliciano (16) Diabetes mellitus, type II: Status: Chronic Qualifiers: Diabetes mellitus complication status: with hyperglycemia 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 use: with equipment operator intermodal yard use Qualified Code(s): E11.65 - Type 2 diabetes mellitus with hyperglycemia; 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 (17) Goals of care, counseling/discussion: Status: Acute Reason for Visit Reason for Visit: RESPIRATORY DISTRESS Brief History: History as per HPI: Admitted on 01/30/2022: Wayne Nicholson is a 61 year old male?with past medical history of morbid obesity, atrial fibrillation, diastolic congestive heart failure, COPD, type 2 diabetes mellitus, obstructive sleep apnea, noncompliant to BiPAP, recurrent admissions with hypoxic and hypercapnic respiratory failure was admitted to the hospital on January 30 with complaints of cough, nonproductive cough going on for few days making him more tired and weak along with occasional confusion as per the spouse at bedside. On presentation to the ER he was found to have saturation of 70s for which he was put on BiPAP after which his saturations improved. There were concerns for noncompliance with BiPAP on admission for which he required antipsychotic and sedating medications. Hospital Course Hospital Course He was initially admitted for acute on chronic hypoxic and hypercapnic respiratory failure secondary to obstructive sleep apnea treated with BiPAP along with mild acute on chronic diastolic congestive heart failure for which he was treated with IV diuresis. On admission he was admitted to ICU at first. COVID-19 PCR was negative on admission. Patient did not tolerate BiPAP well on admission and eventually was intubated to protect airway. On repeat imaging he was found to have complete opacification from mucous plugging of left hemithorax along with thick secretions from the ET tube. He required at least 2 bronchial washing during hospitalization along with aggressive pulmonary toilet for mucous plugging. During hospitalization his blood cultures remain negative though sputum culture on admission was positive for Acinetobacter. He was started on broad-spectrum antibiotics which were later transitioned to antibiotics as per culture sensitivities. He eventually improved with aggressive pulmonary toilet, inhalation treatment and antibiotics and was eventually extubated on 02/07. Patient's extubation was difficult given his obstructive sleep apnea and body habitus. He was found to be fairly deconditioned on extubation given his poor conditioning at baseline. He was eventually transferred to the floor. Diet was advanced as per swallow evaluation given concern for aspiration pneumonia. His hospitalization was complicated and prolonged by patient developing multiple episodes of hypoxic respiratory failure and recurrent left sided mucous plugging. Repeat sputum culture grew stenotrophomonas for which he was started on Bactrim. His last course of antibiotic was on 02/10. During hospitalization patient also developed C. difficile for which he is currently on oral vancomycin. It is believed his symptoms are most likely secondary to poor physical conditioning, morbid obesity, obstructive sleep apnea leading him to be at a high risk of aspiration. Multiple goals of care discussion along with safe discharge planning was done with patient and patient's family. Patient was declined by multiple SNF, home health. Patient was eventually agreeable and was accepted at [facility] for further rehabitation both pulmonary and physical. He is been discharged in hemodynamically stable condition on adjusted medication for further rehabitation. Patient is not to take lisinopril, Imdur. His dose of metoprolol has been changed to 50 mg twice daily, dose of insulin/Lantus has been changed to 15 to 20 units at bedtime, he is to continue using his nebulizer treatment as before along with hypertonic saline and Mucomyst inhalation when as needed. His dose of Lasix and potassium has been changed to as needed basis as well. He to take Lasix or on only for lower limb swelling or of his body weight increases by 5 pounds of his current body weight. He is to continue taking oral vancomycin 125 mg 4 times a day for 2 more weeks. Physical Exam Narrative: No acute distress, morbidly obese Const: GENERAL APPEARANCE: cooperative, comfortable, well developed, disheveled, lethargic and patient mechanically ventilated NUTRITIONAL APPEARANCE: obese morbidly obese ORIENTATION/CONSCIOUSNESS: Yes lethargic Neck/C-Spine: OTHER: Thick LIJ CVC Resp: AUSCULTATION: rhonchi and diminished lung sounds on the left Cardio: COMMON NORMALS: regular rhythm, S1 normal heart sound present, S2 normal heart sound present and No murmurs present (Cardio) RATE: tachycardic RHYTHM: regular rhythm HEART SOUNDS: S1 normal heart sound present and S2 normal heart sound present OTHER: Irregularly irregular with occasional tachycardia GI: COMMON NORMALS: Normal to inspection, nondistended, normoactive bowel sounds present and Soft to palpation PALPATION: Yes Soft to palpation OTHER: Large pannus Extremity: COMMON NORMALS: no joint enlargement GENERAL: Yes edema (trace, difficult to assess) Neuro: SENSORIUM/ORIENTATION: Yes lethargic Skin: OTHER: BL chronic stasis changes Urinary Catheter Management: Lord: Cath Placed During This Visit: yes, but has since been removed by the nurse Reason for Continuing Indwelling Catheter: Decision to DC Catheter Date Urinary Catheter Removed: 02/17/22 Time Urinary Catheter Discontinued: 10:48 Discharge Data Studies Completed and Pending Completed Studies During Hospitalization Category Date Time Status CT chest wo con [id number] Routine Cat Scan 02/03/22 15:49 Completed CXRP [XR chest 1V portable [id number]] Routine Exams 02/02/22 08:32 Completed CXRP [XR chest 1V portable [id number]] Routine Exams 02/02/22 13:56 Completed XR chest 1V portable [id number] AM LABS Exams 01/31/22 04:00 Completed XR chest 1V portable [id number] Routine Exams 02/03/22 08:17 Completed XR chest 1V portable [id number] Routine Exams 02/10/22 09:06 Completed XR chest 1V portable [id number] Stat Exams 01/30/22 11:58 Completed XR chest 1V portable [id number] Stat Exams 01/30/22 15:35 Completed XR chest 1V portable [id number] Stat Exams 01/30/22 17:44 Completed XR chest 1V portable [id number] Stat Exams 02/06/22 10:00 Completed XR chest 1V portable [id number] Stat Exams 02/07/22 03:04 Completed XR chest 1V portable [id number] Stat Exams 02/09/22 17:36 Completed XR chest 1V portable [id number] Urgent Exams 02/14/22 08:18 Completed CV. echo wo/w contrast [id number] Routine Ultrasound 02/06/22 10:02 Completed Radiology Impressions Chest CT 02/03/22 15:49 IMPRESSION: 1. Complete collapse LEFT lower lobe and partial collapse LEFT upper lobe with volume loss in the LEFT thorax. 2. Partial atelectasis RIGHT lower lobe with a small effusion. 3. Very small LEFT pleural effusion. 4. Cardiomegaly. 5. Endotracheal tube and nasogastric tubes are in good position. Chest X-Ray 02/14/22 08:18 IMPRESSION: 1. There is now aeration of the left upper lobe which is a change since the prior study. There is still atelectasis in the lingula and probably the left lower lobe. 2. Cardiac enlargement unchanged. 3. The right lung has cleared since the prior study. 4. There may be loculated pleural fluid in the left major fissure. 5. Left-sided IJ central line in satisfactory position Echocardiogram: CONCLUSIONS ?1.? This is a technically difficult study.? Optison was used per ?protocol. ?2.? Normal left ventricular cavity size and systolic function. ?Left ventricular ejection fraction is estimated at 55-60 %. No ?regional wall motion abnormalities. ?3. Direct comparison to previous study dated 12/31/2017, is not ?possible due to technically difficult study. ?Marilyn Lo MD ?(Electronically Signed) ?Final Date:? ? ? 06 February 2022 ? 16:52 Microbiology 02/14/22 11:45 Stool - Stool Aspirate C.difficile Toxin B Gene (PCR) - Final 02/10/22 13:30 Sputum - Expectorated Sputum Gram Stain - Final 02/10/22 13:30 Sputum - Expectorated Sputum Sputum Culture - Final Stenotrophomonas maltophilia 02/12/22 20:30 Stool Routine Collection Occult Blood (FIT) - Final 01/30/22 15:45 Sputum - Endotracheal Tube Aspirate Gram Stain - Final 01/30/22 15:45 Sputum - Endotracheal Tube Aspirate Sputum Culture - Final Acinetobacter baumannii/haemol 01/30/22 16:55 Blood Blood Culture - Final NO GROWTH AFTER 5 DAYS 01/30/22 17:10 Blood Blood Culture - Final NO GROWTH AFTER 5 DAYS 01/31/22 15:11 Lung Left Lower Lobe - #1 Gram Stain - Final 01/31/22 15:11 Lung Left Lower Lobe - #1 Bronchial Washings Culture - Final 02/02/22 08:20 Urine,Clean Catch Legionella Urinary Antigen - Final 02/02/22 08:20 Urine,Clean Catch Bacterial Antigens - Final 01/30/22 17:52 Nose MRSA Culture - Final Laboratory Results WBC 5.5 10^3/uL (4.0-10.0) 02/22/22 01:49 RBC 3.21 10^6/uL (4.1-5.3) L 02/22/22 01:49 Hgb 9.3 g/dL (11.7-16.6) L 02/22/22 01:49 Hct 31.5 % (42.0-52.0) L 02/22/22 01:49 MCV 98.1 fl (80-94) H 02/22/22 01:49 MCH 29.0 pg (28.0-34.0) 02/22/22 01:49 MCHC 29.5 g/dL (30.0-36.0) L 02/22/22 01:49 RDW 14.6 % (12.1-15.1) 02/22/22 01:49 Plt Count 125 10^3/cmm (130-400) L 02/22/22 01:49 MPV 11.4 fL (7.4-10.4) H 02/22/22 01:49 Neut % (Auto) 53.3 % 02/22/22 01:49 Lymph % (Auto) 32.2 % 02/22/22 01:49 Teller % (Auto) 8.7 % 02/22/22 01:49 Eos % (Auto) 4.7 % 02/22/22 01:49 Baso % (Auto) 0.9 % 02/22/22 01:49 Neut # (Auto) 2.92 10^3/uL (1.8-7.7) 02/22/22 01:49 Lymph # (Auto) 1.8 10^3/uL (0.8-4.8) 02/22/22 01:49 Teller # (Auto) 0.5 10^3/uL (0.2-0.9) 02/22/22 01:49 Eos # (Auto) 0.3 10^3/uL (0.0-0.8) 02/22/22 01:49 Baso # (Auto) 0.1 10^3/uL (0.0-0.1) 02/22/22 01:49 Nucleated RBC % (auto) 0 % 02/22/22 01:49 Nucleated RBCs # 0.0 /100WBC 02/22/22 01:49 PT 17.20 SECONDS (12.1-14.9) H 01/31/22 03:40 INR 1.37 (0.8-1.2) H 01/31/22 03:40 APTT 41.4 SECONDS (23.9-36.7) H 01/31/22 03:40 Specimen Type Arterial 02/07/22 13:05 Sample Site Radial, left 02/07/22 13:05 ABG pH 7.42 (7.35-7.45) 02/07/22 13:05 ABG pCO2 63.1 mmHg (35-45) H* 02/07/22 13:05 ABG pO2 62.8 mmHg (80.0-100.0) L 02/07/22 13:05 ABG HCO3 40.6 mmol/L (22-26) H 02/07/22 13:05 ABG O2 Saturation 90.7 02/07/22 13:05 ABG Base Excess 14.0 mmol/L (-2.0-2.0) H 02/07/22 13:05 Jax Test Pos 10/18/22 13:05 A-a O2 Gradient 19.3 mmHg (5-10) H 02/07/22 13:05 Hematocrit 29.4 % (42-52) L 02/07/22 13:05 Hgb O2 Saturation 89.1 % (95-100) L 02/07/22 13:05 Carboxyhemoglobin 1.4 %THgb (0.4-20.1) 02/07/22 13:05 Methemoglobin 0.5 % (0.4-1.5) 02/07/22 13:05 Total Hemoglobin 9.6 g/dL (14-18) L 02/07/22 13:05 Sodium 142.0 mmol/L (131-143) 02/07/22 13:05 Potassium 4.0 mmol/L (3.5-5.0) 02/07/22 13:05 Glucose 144.0 mg/dL (70-115) H 02/07/22 13:05 Ionized Calcium 1.1 mmol/L (1.1-1.4) 02/07/22 13:05 O2 Delivery Device Vent 02/07/22 13:05 O2 Liters/Min 4.0 % 01/30/22 12:06 FiO2 40.0 % 02/07/22 13:05 Tidal Volume 0.45 02/03/22 05:53 PEEP 8.0 cmH20 02/07/22 13:05 Copywriter ID Cak 02/07/22 13:05 Sodium 143 mmol/L (136-145) 02/22/22 01:49 Potassium 4.3 mmol/L (3.5-5.1) 02/22/22 01:49 Chloride 101 mmol/L (98-107) 02/22/22 01:49 Carbon Dioxide 36 mmol/L (22-29) H 02/22/22 01:49 Anion Gap 10.3 (5-19) 02/22/22 01:49 BUN 8 mg/dL (8-23) 02/22/22 01:49 Creatinine 1.5 mg/dL (0.7-1.2) H 02/22/22 01:49 GFR Calculation 47.4 mL/min (90-130) L 02/22/22 01:49 Glucose 171 mg/dL (65-115) H 02/22/22 01:49 POC Glucose 207 mg/dL (70-110) H 02/22/22 11:38 Calculated Osmolality 298 mOsm/kg (285-295) H 02/22/22 01:49 Lactic Acid 0.9 mmol/L (0.5-2.2) 01/30/22 17:10 Uric Acid 7.3 mg/dL (3.4-7.0) H 01/31/22 03:40 Calcium 8.2 mg/dL (8.5-10.5) L 02/22/22 01:49 Phosphorus 3.1 mg/dL (2.5-4.5) 01/31/22 03:40 Magnesium 1.8 mg/dL (1.7-2.3) 02/18/22 04:00 Iron 17 ug/dL (59-158) L 01/31/22 03:40 TIBC 191 mcg/dl 01/31/22 03:40 % Saturation 8.9 % (20-50) L 01/31/22 03:40 Unsat Iron Binding 174 ug/dL (112-347) 01/31/22 03:40 Total Bilirubin 0.2 mg/dL (0.15-1.2) 02/22/22 01:49 AST 17 U/L (0-40) 02/22/22 01:49 ALT 25 U/L (0-41) 02/22/22 01:49 Alkaline Phosphatase 78 U/L (40-130) 02/22/22 01:49 Creatine Kinase 71 U/L (39-308) 01/30/22 12:03 Troponin T Baseline 35 ng/L (0-15) H 01/30/22 12:03 Troponin T 120 Minute 34.86 ng/L (0-15) H 01/30/22 14:05 Delta Troponin T -0.14 ABS# (0-10) L 01/30/22 14:05 Troponin T Hi Sens 6Hr 32.80 ng/L (0-15) H 01/30/22 17:59 Troponin T Hi Sens 6Hr Delta -2.20 ng/L (0-12) L 01/30/22 17:59 NT-Pro-B Natriuret Pep 2048 pg/mL (0-125) H 01/30/22 12:03 Total Protein 5.6 g/dL (6.6-8.7) L 02/22/22 01:49 Albumin 2.8 g/dL (3.5-5.2) L 02/22/22 01:49 Globulin 2.8 g/dL (1.3-4.6) 02/22/22 01:49 Triglycerides 237 mg/dL (0-150) H 02/07/22 02:47 Cholesterol 205 mg/dL (0-200) H 02/07/22 02:47 LDL Cholesterol, Calc 104 mg/dL (50-129) 02/07/22 02:47 Total VLDL Cholesterol 47 mg/dL (0-30) H 02/07/22 02:47 HDL Cholesterol 54 mg/dL (60-100) L 02/07/22 02:47 Cholesterol/HDL Ratio 3.80 mg/dL (1.0-5.00) 02/07/22 02:47 Vitamin B12 1289 pg/mL (232-1245) H 01/31/22 03:40 Folate 18.2 ng/mL (4.5-32.2) 01/31/22 03:40 Procalcitonin 0.14 ng/mL (0-0.5) 02/14/22 03:52 TSH 0.62 uIU/mL (0.27-4.20) 02/06/22 04:19 TSH Cancelled 02/06/22 04:19 Urine Color Straw (Yellow) 01/30/22 12:49 Urine Appearance Clear (CLEAR) 01/30/22 12:49 Urine pH 5 (5-7) 01/30/22 12:49 Ur Specific Warner 1.010 (1.005-1.030) 01/30/22 12:49 Urine Protein Neg (Negative) 01/30/22 12:49 Urine Glucose (UA) Norm (Normal) 01/30/22 12:49 Urine Ketones Negative (Negative) 01/30/22 12:49 Urine Blood Neg (Negative) 01/30/22 12:49 Urine Nitrate Negative (Negative) 01/30/22 12:49 Urine Bilirubin Neg (Negative) 01/30/22 12:49 Urine Urobilinogen Norm mg/dL (Negative) 01/30/22 12:49 Ur Leukocyte Esterase Negative (Negative) 01/30/22 12:49 Vancomycin Trough 15.2 ug/mL (10-15) H 02/06/22 04:19 Random Vancomycin 16.4 ug/mL (20.0-40.0) L 02/05/22 03:19 Coronavirus 229E (PCR) Not detected (NOT DETECT) 01/30/22 17:09 SARS-CoV-2 (PCR) Not detected (NOT DETECT) 01/30/22 17:09 Vitals Last Vital Signs Temp 98.7 F 02/22/22 13:10 Pulse 98 02/22/22 13:10 Resp 14 02/22/22 13:10 BP 94/67 02/22/22 13:10 Pulse Ox 90 02/22/22 13:10 O2 Del Method 02/22/22 13:10 O2 Flow Rate 3 02/22/22 13:10 FiO2 40 02/22/22 00:00 Discharge Plan Discharge Patient Disposition: Xfer Other Condition: Stable Prescriptions: New guaifenesin [Mucinex] 600 mg Tablet Extended Release 12hr 1,200 mg PO BID Qty: 30 0RF amiodarone [Pacerone] 200 mg Tablet 200 mg PO DAILY Qty: 30 0RF ferrous gluconate 324 mg (37.5 mg iron) Tablet 324 mg PO BIDWM Qty: 60 0RF Hyper-El 3.5 % Solution For Nebulization 4 ml inhalation Q4H.RESPIRATORY PRN (Reason: Shortness Of Breath) Qty: 30 0RF vancomycin [Vancocin] 125 mg capsule 125 mg PO QID 14 Days Qty: 56 0RF acetylcysteine 200 mg/mL (20 %) Solution 100 mg inhalation Q4H.RESPIRATORY PRN (Reason: Shortness Of Breath) Qty: 30 0RF metoprolol tartrate 50 mg Tablet 50 mg PO BID@0900,2100 Qty: 60 0RF Continued multivitamin Tablet 1 tab PO DAILY (DME) Dexcom G6 Internal Audit Director Misc See Rx Instructions .Route Qty: 1 0RF Rx Instructions: As directed (DME) Dexcom G6 Sensor Device See Rx Instructions .Route Qty: 3 3RF Rx Instructions: Check BS 4 times a day. Change every 10 days. (DME) Dexcom G6 Transmitter Device See Rx Instructions .Route Qty: 1 3RF Rx Instructions: Change every 90 days. (DME) concentrator and homefill oxygen system See Rx Instructions .Route .MEDSUPPLY Qty: 1 0RF Rx Instructions: As directed (DME) pen needle, diabetic [Comfort EZ Pen [place]] 29 gauge x 1/2 needle See Rx Instructions .ROUTE .MEDSUPPLY Qty: 100 3RF Rx Instructions: one daily (DME) blood sugar diagnostic Strip See Rx Instructions .ROUTE .MEDSUPPLY Qty: 100 0RF Rx Instructions: twice daily (DME) blood-glucose meter [OneTouch Ultra2 Meter] Kit See Rx Instructions .ROUTE .MEDSUPPLY Qty: 1 0RF Rx Instructions: As directed (DME) lancets [OneTouch UltraSoft Lancets] Misc See Rx Instructions .ROUTE .MEDSUPPLY Qty: 100 0RF Rx Instructions: As directed metformin 1,000 mg tablet 1,000 mg PO BID Qty: 180 0RF Eliquis 5 mg tablet 5 mg PO BID Qty: 180 0RF albuterol sulfate [ProAir HFA] 90 mcg/actuation Hfa Aerosol Inhaler 2 puff INHALATION Q6H PRN (Reason: Shortness Of Breath) cholecalciferol (vitamin D3) [Vitamin D3] 50 mcg (2,000 unit) Tablet 100 mcg PO DAILY atorvastatin 80 mg tablet 80 mg PO QAM Advair HFA 45-21 mcg/actuation HFA aerosol inhaler 2 inh inhalation Q12H Qty: 12 5RF Rx Instructions: administer with spacer albuterol sulfate 2.5 mg /3 mL (0.083 %) solution for nebulization 2.5 mg INHALATION QID PRN (Reason: shortness of breath or wheezing) Qty: 75 4RF Vitamin B-12 100 mcg Tablet 100 mcg PO DAILY Vitamin C 500 mg Tablet Extended Release 500 mg PO DAILY duloxetine 60 mg capsule,delayed release(DR/EC) 60 mg PO BEDTIME Changed furosemide [Lasix] 40 mg tablet 40 mg PO QAM PRN (Reason: Swelling) Qty: 60 3RF insulin glargine U-300 conc 300 unit/mL (3 mL) insulin pen 20 unit SUBCUT DAILY Qty: 18 12RF potassium chloride 20 mEq tablet extended release 10 meq PO BEDTIME PRN (Reason: On the day of Lasix) Qty: 14 0RF Discontinued metoprolol tartrate 100 mg tablet 100 mg PO BID Qty: 60 0RF isosorbide mononitrate 30 mg tablet extended release 24 hr 15 mg PO QAM spironolactone 25 mg tablet 25 mg PO QAM lisinopril 10 mg tablet 5 mg PO BEDTIME Discharge Orders: Discharge Order (Routine); Ordered 02/22/22 Ordered By: Perez Mcknight Referrals: [facility] [Outside] Mason Giles MD [Primary Care Provider] - Datar,Loc Adams MD [Physician] - 1 week Discharge Diet: As Directed, Cardiac and Diabetic Discharge Activity: Resume usual activity and Increase activity as tolerated Patient Instructions: Opioid Safety Activity Restrictions/Additional Instructions: Multiple medication changes have been done. Take Lasix and potassium as needed for swelling of lower limbs or increase in body weight of 5 pounds. Take potassium only on the days of Lasix. Dose of metoprolol has been changed to 50 mg twice daily. Do not take lisinopril, spironolactone, Imdur. Please continue to use your BiPAP regularly. Please use hypertonic solution/Mucomyst inhalation as needed. Please continue to increase your physical activity as discussed in detail with physical therapy. Please follow-up with a primary care provider within next 1 week of discharge. Discharge Attestations Time Spent in Discharge Care*: greater than 30 min Specific Discharge Activities: educating patient, educating and/or supporting family/caregiver, discussing with pcp/other providers, discussing with piano case and bench assembler/social workers/dc planners, documenting/other paperwork and evaluating patient/reviewing data Status at Discharge: Cognitive status at discharge: cognitively intact, Behavioral status at discharge: cooperative, Functional status at discharge: uses cane/walker, Overall status at discharge: patient is progressing back to baseline Quality Metrics Clinical Quality Measures [ No reported AMI, CVA or VTE this stay] Coding Level of Care Code Acute [facility] DC note History Comprehensive Exam Comprehensive Medical Decision Making High Complexity Diagnoses Acute on chronic respiratory failure with hypoxia and hypercapnia J96.21; J96.22 Mucus plugging of bronchi T17.500A Pneumonia due to Acinetobacter species J15.8 Aspiration pneumonia J69.0 SHERLEY (obstructive sleep apnea) G47.33 COPD (chronic obstructive pulmonary disease) J44.1 COPD type: COPD with acute exacerbation Hypernatremia E87.0 Hypoglycemia E16.2 CHF (congestive heart failure) I50.33 Heart failure type: diastolic Heart failure chronicity: acute on chronic Encephalopathy acute G93.40 Anemia D64.9 Anemia type: unspecified type CKD stage 2 due to type 2 diabetes mellitus E11.22; N18.2 Hypertension I10 Atrial fibrillation I48.11 Atrial fibrillation type: longstanding persistent Chronic anticoagulation Z79.01 Diabetes mellitus, type II E11.65; Z79.4 Diabetes mellitus complication status: with hyperglycemia 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
[2022-02-22 14:15] LABS: SARS Covid-2 Antigen negative (Negative)
--- NOTE | 2022-02-22 14:18 | PC.NURSE ---
Report called and given to [facility] bed unit, denies further questions or concerns.
--- NOTE | 2022-02-22 15:08 | PC.NURSE ---
Patient belongings gathered and provided to EMS personnel for discharge to [facility] facility.
== END 2022-02-22 15:15 | disposition swing bed (61) | DRG 163 ==
LOC: ER 14:09 → ICU 17:07 → MEDSURG 02-09 16:44
PROVIDERS: Internal Medicine; Internal Medicine Pulmonary Disease; Thoracic Surgery (Cardiothoracic Vascular Surgery); Admitting Provider Hospitalist; Emergency Provider Family Medicine; PCP Family Medicine; Visit Provider Student in an Organized Health Care Education/Training Program
PROC: 0BJ08ZZ Inspection of Tracheobronchial Tree, Via Natural or Artificial Opening Endoscopic (ICD-10-PCS; CPT 31622; principal; 2022-01-31 15:00)
DX: J96.22 Acute and chronic respiratory failure with hypercapnia (principal); G93.41 Metabolic encephalopathy; I50.33 Acute on chronic diastolic (congestive) heart failure; J69.0 Pneumonitis due to inhalation of food and vomit; J15.8 Pneumonia due to other specified bacteria; I48.11 Longstanding persistent atrial fibrillation; I13.0 Hypertensive heart and chronic kidney disease with heart failure and stage 1 through stage 4 chronic kidney disease, or unspecified chronic kidney disease; J44.1 Chronic obstructive pulmonary disease with (acute) exacerbation; E66.2 Morbid (severe) obesity with alveolar hypoventilation; Z68.43 Body mass index [BMI] 50.0-59.9, adult; A04.72 Enterocolitis due to Clostridium difficile, not specified as recurrent; N17.9 Acute kidney failure, unspecified; T17.890A Other foreign object in other parts of respiratory tract causing asphyxiation, initial encounter; J96.21 Acute and chronic respiratory failure with hypoxia; Z99.81 Dependence on supplemental oxygen; N18.2 Chronic kidney disease, stage 2 (mild); E11.22 Type 2 diabetes mellitus with diabetic chronic kidney disease; E11.40 Type 2 diabetes mellitus with diabetic neuropathy, unspecified; E11.65 Type 2 diabetes mellitus with hyperglycemia; T38.0X5A Adverse effect of glucocorticoids and synthetic analogues, initial encounter; E78.5 Hyperlipidemia, unspecified; Z87.891 Personal history of nicotine dependence; Z91.199 Patient's noncompliance with other medical treatment and regimen due to unspecified reason; W06.XXXA Fall from bed, initial encounter; Y92.230 Patient room in hospital as the place of occurrence of the external cause; D63.1 Anemia in chronic kidney disease; E87.5 Hyperkalemia; Z79.51 Long term (current) use of inhaled steroids; Z79.01 Long term (current) use of anticoagulants; Z79.84 Long term (current) use of oral hypoglycemic drugs; Z75.1 Person awaiting admission to adequate facility elsewhere; B96.89 Other specified bacterial agents as the cause of diseases classified elsewhere; F41.9 Anxiety disorder, unspecified; R45.1 Restlessness and agitation; I95.9 Hypotension, unspecified
CPT/HCPCS: 31622; 31645; 36415; 36416; 36556; 36592; 36600; 71045; 71250; 80048; 80051; 80053; 80061; 80202; 81003; 82274; 82330; 82550; 82607; 82746; 82803; 82805; 82962; 83540; 83550; 83605; 83735; 83880; 84100; 84145; 84443; 84484; 84550; 85025; 85610; 85730; 86403; 87040; 87070; 87077; 87186; 87205; 87426; 87449; 87493; 87635; 87641; 92523; 92526; 92610; 93005; 94002; 94003; 94640; 94660; 94667; 94668; 94669; 94762; 94799; 96365; 96372; 96375; 97110; 97116; 97124; 97161; 97167; 97530; 97535; 99291; 99292; C1751; C8929; C9113; J0282; J0692; J0696; J0743; J1642; J1650; J1815; J1940; J2185; J2250; J2704; J2920; J2930; J3010; J3370; J3486; J3490; J7050; J7060; J7070; J7512; J7608; J7611; J7626; Q9956

== ENCOUNTER 2022-03-19 12:55 | Inpatient (IN) | payer MEDICARE, SELFPAY ==
[2022-03-19] VITALS (79 sets, daily range): BP systolic 97–146; BP diastolic 32–119; PULSE 77–116; RESP 12–41; TEMP 36.8–36.9; O2SAT 79–100; BMI 54.9
--- NOTE | 2022-03-19 13:12 | ECG_ITS ---
[facility] Test Date: 2022-03-19 Pat Name: Wayne Nicholson Department: Room: Gender: Male Tip Tester: : 1960 Requested By: Grayson Tam Order Number: [id number] Marcello MD: Gm Mathis M.D. Measurements Intervals Vernal Rate: 112 P: 0 CT: 0 QRS: 73 QRSD: 120 T: 1 QT: 345 QTc: 473 Interpretive Statements ATRIAL FIBRILLATION WITH RAPID VENTRICULAR RESPONSE POSSIBLE RIGHT VENTRICULAR CONDUCTION DELAY [RSR (QR) IN V1/V2] MINIMAL ST DEPRESSION [0.025+ mV ST DEPRESSION] ABNORMAL RHYTHM ECG Compared to ECG 02/07/2022 17:52:05 ST (T wave) deviation now present Electronically Signed On 03-20-2022 14:19:52 MULTIFOCAL LENS ASSEMBLER by Gm Mathis M.D. [email or web address]
--- NOTE | 2022-03-19 13:12 | XRR_ITS ---
PROCEDURE INFORMATION: Exam: XR Chest Exam date and time: 03/19/2022 2:26 PM Age: 61 years old Clinical indication: Cough and dyspnea; Additional info: Dyspnea/cough TECHNIQUE: Imaging protocol: Radiologic exam of the chest. Views: 1 view. COMPARISON: CR XR chest 1V portable [id number] 02/14/2022 8:40 AM FINDINGS: Lungs: Moderate to severe left basilar atelectasis and/or infiltrate and/or effusion. Pleural spaces: Unremarkable. No pleural effusion. No pneumothorax. Heart/Mediastinum: Unremarkable. No cardiomegaly. Bones/joints: Unremarkable. XR/XR chest 1V portable [id number] IMPRESSION: Moderate to severe left basilar atelectasis and/or infiltrate and/or effusion.
[2022-03-19] MEDS: FUROsemide 10 mg/mL SDV 10mL 80 MG IVP (13:13)
[2022-03-19 13:16] LABS: Alveolar-Arterial Oxygen Gradi 17.2 mmHg (5-10); Arterial Blood Gas Hematocrit 31.6 % (42-52); Base Excess ABG 9.4 mmol/L (-2.0-2.0); Blood Gas Allen Test Pos; Blood Gas Operator Identificat GD; Blood Gas Sample Site Radial, left; Blood Gas Sample Type Arterial; Carboxyhemoglobin 1.2 %THgb (0.4-20.1); HCO3 ABG 41.3 mmol/L (22-26); HGB O2 Sat 93.4 % (95-100); Ionized Calcium Level - ABG 1.2 mmol/L (1.1-1.4); Methemoglobin 0.3 % (0.4-1.5); Oxygen Device BIPAP; Oxygen Saturation ABG 94.9; PO2 ABG 84.9 mmHg (80.0-100.0); Potassium Level - ABG 5.7 mmol/L (3.5-5.0); Total Hemoglobin 10.3 g/dL (14-18)
[2022-03-19 13:17] LABS: ABG PH Result 7.16 (7.35-7.45)
--- NOTE | 2022-03-19 13:34 | ED_ITS ---
HPI - SOB/Dyspnea General: Chief Complaint: Shortness of Breath/Dyspnea Stated Complaint: RESP DISTRESS Time Seen by Provider: 03/19/22 12:59 Source: patient Mode of arrival: ambulatory History of Present Illness: HPI Narrative: 61-year-old male presents emergency room via EMS in acute respiratory distress he is on CPAP/BiPAP with EMS but he is in marked respiratory distress tachypneic. First blood gas shows significant hypercapnia with respiratory acidosis advised patient at the bedside he needed to be intubated given these findings he is refusing wants to be a Do Not Recussitate family also is co ncurring with this initially is denying any chest or abdominal pain. He is recently been hospitalized for a long period at [facility] in a shorter period more locally before going home. MD elicited complaint: shortness of breath and cough Pertinent past history: COPD Onset (ago): hour(s) Context: recent illness Timing: constant Severity: severe Exacerbating factors: exertion and coughing Relieving factors: nothing Known history of: COPD Associated symptoms: Reports chest congestion, cough, diaphoresis and orthopnea; Deny abdominal pain, chest pain, dizziness, extremity pain, fever(s), hemoptysis, lightheadedness, nausea, palpitations, paresthesias, polydipsia, polyuria, rash, sense of impending doom, syncope or vomiting Treatment prior to arrival: oxygen Review of Systems Const: Reports: diaphoresis; Denies: fever(s), chills, fatigue or malaise ENMT: Denies: throat pain, ear or mastoid pain, nasal discharge or nasal congestion Card: Reports: orthopnea; Denies: chest pain, palpitations, lightheadedness or syncope Resp: Reports: dyspnea, non-productive cough, wheezing and chest congestion; Denies: hemoptysis GI: Denies: abdominal pain, nausea or vomiting : Denies: flank pain, dysuria, urinary frequency or urinary urgency Musc: Denies: extremity pain Skin/Breast: Denies: rash or pruritus Neuro: Denies: dizziness Endo: Denies: polyuria or polydipsia PFSH ED PFSH: Medical History Atrial fibrillation CHF (congestive heart failure) CKD stage 2 due to type 2 diabetes mellitus COPD (chronic obstructive pulmonary disease) Diabetes mellitus, type II Diabetic neuropathy Difficulty with BiPAP use Dyslipidemia History of echocardiogram 2018 EF 65%. no wall motion abnormalities, Grade III/IV Diastolic Dysfunction; report in [facility] History of left heart catheterization 2018 normal coronary arteries; performed by Dr Zaman at [facility], report in [facility] History of right heart catheterization 2018 PCWP 15 mmHg, mean PAP 50 mmHg, responsive to SL NTG with reduction to 39 mmHg, consistent with reversibility; performed by Dr Zaman at [facility], report in [facility] History of sleep study 2018 Moderate obstructive sleep apnea, exacerbated by REM sleep, nocturnal hypoxia, elevated periodic limb movement index with a normal PLM-arousal index, abnormal sleep architecture related to first night effect, respiratory events and medications; report in [facility] Hypertension Morbid obesity On home oxygen therapy SHERLEY (obstructive sleep apnea) Surgical History S/P appendectomy Family History Mother CAD (coronary artery disease) Atrial fibrillation Father Lung disease Unknown Cancer Lung, Breast, Brain Other CHF (congestive heart failure) Social History Smoking and tobacco status: former smoker Alcohol intake: former Caregiver/support person: Yes Lives independently: Yes Household members: significant other Physical Exam Const: ORIENTATION/CONSCIOUSNESS: Yes awake HENMT: COMMON NORMALS: normocephalic and atraumatic HEAD & SCALP: no rmocephalic and atraumatic Resp: AUSCULTATION: rhonchi, wheezes and diminished lung sounds Cardio: RATE: tachycardic RHYTHM: abnormal rhythm irregularly irregular GI: COMMON NORMALS: Soft to palpation and No hepatosplenomegaly present AUSCULTATION: Yes normoactive bowel sounds PALPATION: Yes Soft to palpation, No Tenderness to palpation present (GI), No Guarding due to palpation present (GI) and Yes No hepatosplenomegaly present Extremity: COMMON NORMALS: normal to inspection, capillary refill normal, no clubbing, cyanosis or edema, no calf tenderness and no pedal edema Skin: COMMON NORMALS: no rashes or lesions noted GENERAL SKIN EXAM: no rashes or lesions noted Course Vital Signs: Vital signs: Vital Signs Temperature 98.2 F 03/26/22 15:37 Pulse Rate 90 03/26/22 15:37 Respiratory Rate 16 03/26/22 15:37 Blood Pressure 93/59 03/26/22 15:37 Pulse Oximetry 95 03/26/22 15:37 Oxygen Delivery Me thod 03/26/22 15:37 Oxygen Flow Rate 3 03/26/22 14:00 Fraction of Inspir ed Oxygen 30 03/26/22 14:23 MDM - SOB/Dyspnea Medical Decision Making Patient in severe respiratory distress with significant work of breathing he is in hypercapnic respiratory failure his respiratory rate is in the low 40s with a PCO2 of 117 and pH of 7.16 and a PO2 of 84 on FiO2 of 100. Discussed with the patient and his fianc?e that he needs to be intubated at this point. They are hesitant to do so. His fianc?e is asking that we monitor to see if he gets worse. Advised him that we can do this however at this point if he gets much worse it is very unlikely he will recover. Currently on AVAPS at the highest possible settings. Without intervention I believe he will very shortly go into full respiratory arrest followed by cardiac arrest. I have shared this with the patient and his fianc?e they continue to wish to just observe at this time. Lab Data 03/19/22 14:40 03/19/22 14:40 Labs/Radiology: Radiology Impressions KUB X-Ray 03/20/22 00:34 IMPRESSION: 1. Enteric tube tip below the diaphragm over the gastric bubble. 2. Moderate left pleural effusion somewhat visualized. 3. Cardiomegaly. Chest X-Ray 03/21/22 07:47 IMPRESSION: ET tube and nasogastric tube in proper position. Persistence of left hemithorax abnormality. Renal Ultrasound 03/24/22 10:06 IMPRESSION: Images limited due to body habitus. 1. Increased echogenicity in both kidneys suspicious for medical renal disease. Kidneys are poorly visualized bilaterally due to body habitus. 2. No hydronephrosis in the kidney. 3. Lord catheter. Laboratory Results WBC 12.3 10^3/uL (4.0-10.0) H 03/19/22 14:40 RBC 3.42 10^6/uL (4.1-5.3) L 03/19/22 14:40 Hgb 9.8 g/dL (11.7-16.6) L 03/19/22 14:40 Hct 34.4 % (42.0-52.0) L 03/19/22 14:40 MCV 100.6 fl (80-94) H 03/19/22 14:40 MCH 28.7 pg (28.0-34.0) 03/19/22 14:40 MCHC 28.5 g/dL (30.0-36.0) L 03/19/22 14:40 RDW 14.7 % (12.1-15.1) 03/19/22 14:40 Plt Count 196 10^3/cmm (130-400) 03/19/22 14:40 MPV 12.5 fL (7.4-10.4) H 03/19/22 14:40 Neut % (Auto) 91.6 % 03/19/22 14:40 Lymph % (Auto) 4.4 % 03/19/22 14:40 [place] % (Auto) 2.8 % 03/19/22 14:40 Eos % (Auto) 0.2 % 03/19/22 14:40 Baso % (Auto) 0.4 % 03/19/22 14:40 Neut # (Auto) 11. 10^3/uL (1.8-7.7) H 03/19/22 14:40 Lymph # (Auto) 0.5 10^3/uL (0.8-4.8) L 03/19/22 14:40 [place] # (Auto) 0.4 10^3/uL (0.2-0.9) 03/19/22 14:40 Eos # (Auto) 0.0 10^3/uL (0.0-0.8) 03/19/22 14:40 Baso # (Auto) 0.1 10^3/uL (0.0-0.1) 03/19/22 14:40 Nucleated RBC % (auto) 0 % 03/19/22 14:40 Nucleated RBCs # 0.0 /100WBC 03/19/22 14:40 Specimen Type Arterial 03/19/22 15:11 Sample Site Radial, right 03/19/22 15:11 ABG pH 7.26 (7.35-7.45) L 03/19/22 15:11 ABG pCO2 93.1 mmHg (35-45) H* 03/19/22 15:11 ABG pO2 86.2 mmHg (80.0-100.0) 03/19/22 15:11 ABG HCO3 41.4 mmol/L (22-26) H 03/19/22 15:11 ABG O2 Saturation 96.8 03/19/22 15:11 ABG Base Excess 11.5 mmol/L (-2.0-2.0) H 03/19/22 15:11 Jax Test Pos 03/19/22 15:11 A-a O2 Gradient 20.7 mmHg (5-10) H 03/19/22 15:11 Hematocrit 31.2 % (42-52) L 03/19/22 15:11 Hgb O2 Saturation 95.1 % (95-100) 03/19/22 15:11 Carboxyhemoglobin 1.4 %THgb (0.4-20.1) 03/19/22 15:11 Methemoglobin 0.4 % (0.4-1.5) 03/19/22 15:11 Total Hemoglobin 10.2 g/dL (14-18) L 03/19/22 15:11 Sodium 140.0 mmol/L (131-143) 03/19/22 15:11 Potassium 5.8 mmol/L (3.5-5.0) H 03/19/22 15:11 Glucose 212.0 mg/dL (70-115) H 03/19/22 15:11 Ionized Calcium 1.2 mmol/L (1.1-1.4) 03/19/22 15:11 O2 Delivery Device Bipap 03/19/22 15:11 FiO2 50.0 % 03/19/22 15:11 Fretted Instrument Maker Hand ID glc 03/19/22 15:11 Sodium 135 mmol/L (136-145) L 03/19/22 14:40 Potassium 6.2 mmol/L (3.5-5.1) H 03/19/22 14:40 Chloride 90 mmol/L (98-107) L 03/19/22 14:40 Carbon Dioxide 40 mmol/L (22-29) H 03/19/22 14:40 Anion Gap 11.2 (5-19) 03/19/22 14:40 BUN 16 mg/dL (8-23) 03/19/22 14:40 Creatinine 1.5 mg/dL (0.7-1.2) H 03/19/22 14:40 GFR Calculation 47.4 mL/min (90-130) L 03/19/22 14:40 Glucose 232 mg/dL (65-115) H 03/19/22 14:40 Calculated Osmolality 289 mOsm/kg (285-295) 03/19/22 14:40 Lactic Acid 1.7 mmol/L (0.5-2.2) 03/19/22 14:40 Calcium 9.3 mg/dL (8.5-10.5) 03/19/22 14:40 Magnesium 1.9 mg/dL (1.7-2.3) 03/19/22 14:40 Total Bilirubin 0.2 mg/dL (0.15-1.2) 03/19/22 14:40 AST 12 U/L (0-40) 03/19/22 14:40 ALT 12 U/L (0-41) 03/19/22 14:40 Alkaline Phosphatase 67 U/L (40-130) 03/19/22 14:40 Troponin T Baseline 35 ng/L (0-15) H 03/19/22 14:40 Troponin T 120 Minute 35.26 ng/L (0-15) H 03/19/22 16:30 Delta Troponin T 0.26 ABS# (0-10) 03/19/22 16:30 Total Protein 7.1 g/dL (6.6-8.7) 03/19/22 14:40 Albumin 3.8 g/dL (3.5-5.2) 03/19/22 14:40 Globulin 3.3 g/dL (1.3-4.6) 03/19/22 14:40 Urine Color Yellow (Yellow) 03/19/22 14:30 Urine Appearance Clear (CLEAR) 03/19/22 14:30 Urine pH 5 (5-7) 03/19/22 14:30 Ur Specific [place] 1.020 (1.005-1.030) 03/19/22 14:30 Urine Protein 1+ (Negative) H 03/19/22 14:30 Urine Glucose (UA) 1+ (Normal) H 03/19/22 14:30 Urine Ketones Negative (Negative) 03/19/22 14:30 Urine Blood Neg (Negative) 03/19/22 14:30 Urine Nitrate Negative (Negative) 03/19/22 14:30 Urine Bilirubin Neg (Negative) 03/19/22 14:30 Urine Urobilinogen Neg mg/dL (Negative) 03/19/22 14:30 Ur Leukocyte Esterase Negative (Negative) 03/19/22 14:30 Urine RBC None /hpf (0-2) 03/19/22 14:30 Urine WBC None /hpf (0-5) 03/19/22 14:30 Ur Squamous Epith Cells None /hpf (0-5) 03/19/22 14:30 Amorphous Sediment 1+ /hpf 03/19/22 14:30 Urine Bacteria None /hpf (NONE) 03/19/22 14:30 Nasal Influ A H1 2009 PCR Not detected (NOT DETECT) 03/19/22 15:44 Adenovirus (PCR) Not detected (NOT DETECT) 03/19/22 15:44 C. pneumoniae DNA (PCR) Not detected (NOT DETECT) 03/19/22 15:44 Coronavirus 229E (PCR) Cancelled 03/19/22 15:44 Coronavirus 229E (PCR) Not detected (NOT DETECT) 03/19/22 15:44 Human Metapneumovir PCR Not detected (NOT DETECT) 03/19/22 15:44 Influenza A (H1) PCR Not detected (NOT DETECT) 03/19/22 15:44 Influenza A (H3) PCR Not detected (NOT DETECT) 03/19/22 15:44 Influenza Type A (PCR) Not detected (NOT DETECT) 03/19/22 15:44 Influenza Type B (PCR) Not detected (NOT DETECT) 03/19/22 15:44 M. pneumoniae (PCR) Not detected (NOT DETECT) 03/19/22 15:44 Parainfluenza 1 (PCR) Not detected (NOT DETECT) 03/19/22 15:44 Parainfluenza 2 (PCR) Not detected (NOT DETECT) 03/19/22 15:44 Parainfluenza 3 (PCR) Not detected (NOT DETECT) 03/19/22 15:44 Parainfluenza 4 (PCR) Not detected (NOT DETECT) 03/19/22 15:44 RSV Type A (PCR) Not detected (NOT DETECT) 03/19/22 15:44 RSV Type B (PCR) Not detected (NOT DETECT) 03/19/22 15:44 Entero/Rhino (PCR) Not detected (NOT DETECT) 03/19/22 15:44 SARS-CoV-2 (PCR) Cancelled 03/19/22 15:44 SARS-CoV-2 (PCR) Not detected (NOT DETECT) 03/19/22 15:44 Discharge Plan Discharge Patient Disposition: Admitted As Inpatient Admit Provider: Nany Carranza Clinical Impression: Acute exacerbation of chronic obstructive airways disease Condition: Stable Coding Level of Care Code ED Lead Sewage Plant Operator for Chg Fwd Exam Detailed
[2022-03-19] MEDS: ipratropium-albuterol 3 mL Neb 9 ML INHALATION ×2 (14:51→16:40)
[2022-03-19 14:57] LABS: Basophils # 0.1 10^3/uL (0.0-0.1); Basophils % 0.4 %; Eosinophils % 0.2 %; Hematocrit 34.4 % (42.0-52.0); Hemoglobin 9.8 g/dL (11.7-16.6); Lymphocytes # 0.5 10^3/uL (0.8-4.8); Lymphocytes % 4.4 %; Mean Corpuscular HGB Conc 28.5 g/dL (30.0-36.0); Mean Corpuscular Hemoglobin 28.7 pg (28.0-34.0); Mean Corpuscular Volume 100.6 fl (80-94); Mean Platelet Volume 12.5 fL (7.4-10.4); Monocytes # 0.4 10^3/uL (0.2-0.9); Monocytes % 2.8 %; Neutrophils # 11.27 10^3/uL (1.8-7.7); Neutrophils % 91.6 %; Nucleated Red Blood Cells % 0 %; Platelet Count 196 10^3/cmm (130-400); Red Blood Count 3.42 10^6/uL (4.1-5.3); Red Cell Distribution Width 14.7 % (12.1-15.1); White Blood Count 12.3 10^3/uL (4.0-10.0)
[2022-03-19 15:14] LABS: Add Urine Microscopic? YES; Bilirubin Urine Neg (Negative); Blood Urine Neg (Negative); Glucose Urine UA 1+ (Normal); Ketones Urine Negative (Negative); Leukocyte Esterase Urine Negative (Negative); Nitrate Urine Negative (Negative); Protein Urine 1+ (Negative); Urine Appearance Clear (CLEAR); Urine Color Yellow (Yellow); Urobilinogen Urine Neg (Negative); pH Urine 5 (5-7)
[2022-03-19] MEDS: cefepime 2,000 MG in sodium chloride 0.9% (plus) 50 ML 100 MG IV (15:19)
[2022-03-19 15:22] LABS: Troponin(5th) Baseline 35 ng/L (0-15)
[2022-03-19 15:23] LABS: ABG PH Result 7.26 (7.35-7.45); Alveolar-Arterial Oxygen Gradi 20.7 mmHg (5-10); Arterial Blood Gas Hematocrit 31.2 % (42-52); Base Excess ABG 11.5 mmol/L (-2.0-2.0); Blood Gas Allen Test Pos; Blood Gas Operator Identificat glc; Blood Gas Sample Site Radial, right; Blood Gas Sample Type Arterial; Carboxyhemoglobin 1.4 %THgb (0.4-20.1); HCO3 ABG 41.4 mmol/L (22-26); HGB O2 Sat 95.1 % (95-100); Ionized Calcium Level - ABG 1.2 mmol/L (1.1-1.4); Methemoglobin 0.4 % (0.4-1.5); Oxygen Device BIPAP; Oxygen Saturation ABG 96.8; PO2 ABG 86.2 mmHg (80.0-100.0); Potassium Level - ABG 5.8 mmol/L (3.5-5.0); Total Hemoglobin 10.2 g/dL (14-18)
--- NOTE | 2022-03-19 15:23 | ECG_ITS ---
[facility] Test Date: 2022-03-19 Pat Name: Wayne Nicholson Department: Room: Gender: Male Industrial Health Engineer: : 1960 Requested By: Grayson Tam Order Number: [id number] Marcello MD: Gm Mathis M.D. Measurements Intervals [place] Rate: 87 P: 0 VT: 0 QRS: 55 QRSD: 110 T: 56 QT: 358 QTc: 433 Interpretive Statements ATRIAL FIBRILLATION LOW QRS VOLTAGE IN PRECORDIAL LEADS [QRS DEFLECTION < 1.0 mV IN CHEST LEADS] INCOMPLETE RIGHT BUNDLE BRANCH BLOCK [90+ ms QRS DURATION, TERMINAL R IN V1/V2, 40+ ms S IN I/aVL/V4/V5/V6] ABNORMAL RHYTHM ECG Compared to ECG 03/19/2022 13:04:17 Low QRS voltage now present Incomplete right bundle-branch block now present ST (T wave) deviation no longer present Electronically Signed On 03-21-2022 0:07:16 BLOOD BANK BUSINESS MANAGER by Gm Mathis M.D. [email or web address]
[2022-03-19 15:25] LABS: Alanine Aminotransferase 12 U/L (0-41); Albumin Level 3.8 g/dL (3.5-5.2); Alkaline Phosphatase 67 U/L (40-130); Anion Gap 11.2 (5-19); Aspartate Amino Transferase 12 U/L (0-40); Blood Urea Nitrogen 16 mg/dL (8-23); Calcium 9.3 mg/dL (8.5-10.5); Carbon Dioxide 40 mmol/L (22-29); Chloride 90 mmol/L (98-107); Globulin 3.3 g/dL (1.3-4.6); Glomerular Filtration Rate 47.4 mL/min (90-130); Glucose 232 mg/dL (65-115); Magnesium 1.9 mg/dL (1.7-2.3); Osmolality Calculated 289 mOsm/kg (285-295); Potassium 6.2 mmol/L (3.5-5.1); Sodium 135 mmol/L (136-145); Total Bilirubin 0.2 mg/dL (0.15-1.2); Total Protein 7.1 g/dL (6.6-8.7)
[2022-03-19 15:26] LABS: Lactic Sepsis W/Reflex 1.7 mmol/L (0.5-2.2)
[2022-03-19 15:27] LABS: ABG PCO2 93.1 mmHg (35-45)
[2022-03-19 15:33] LABS: Add Urine Culture? No; Amorphous Sediment Urine 1+ /hpf
[2022-03-19 17:14] LABS: Troponin 5 2HR 35.26 ng/L (0-15)
[2022-03-19 17:15] LABS: Anion Gap 12.7 (5-19); Blood Urea Nitrogen 17 mg/dL (8-23); Calcium 9.2 mg/dL (8.5-10.5); Carbon Dioxide 36 mmol/L (22-29); Chloride 87 mmol/L (98-107); Glomerular Filtration Rate 47.4 mL/min (90-130); Glucose 206 mg/dL (65-115); Osmolality Calculated 278 mOsm/kg (285-295); Potassium 5.7 mmol/L (3.5-5.1); Sodium 130 mmol/L (136-145)
--- NOTE | 2022-03-19 17:17 | P.HP_ITS ---
Providers/Chief Complaint Admitting Physician: Nany Carranza MD Primary Care Provider: Mason Giles MD Chief Complaint: RESP DISTRESS History of Present Illness Wayne Nicholson is a 61 year old male ?with past medical history of morbid obesity, atrial fibrillation, diastolic congestive heart failure, COPD, type 2 diabetes mellitus, obstructive sleep apnea, noncompliant to BiPAP, recurrent admissions with hypoxic and hypercapnic respiratory failure?recent prolonged admission between 01/31- 02/22 where course was complicated by ventilator dependent respiratory failure, mucous plugging of left hemithorax along with thick secretions from the ET tube.? He required at least 2 bronchial washing during hospitalization along with aggressive pulmonary toilet for mucous plugging. He eventually improved with aggressive pulmonary toilet, inhalation treatment and antibiotics and was eventually extubated on 02/07.? Patient's extubation was difficult given his obstructive sleep apnea and body habitus.? He was found to be fairly deconditioned on extubation given his poor conditioning at baseline. ?sputum culture grew stenotrophomonas for which he was started on Bactrim.? His last course of antibiotic was on 02/10.? During hospitalization patient also developed C. difficile for which he received oral vancomycin. He was discharged to [facility] for ?further rehabitation both pulmonary and physical. He returns to the hospital today in severe respiratory distress. ABG showed significant hypercapnia as follows. pH 7.1 6/117/80 4.9/41.3. He has been on BiPAP for at least an hour at this point in time. With only minimal change in his ABG. Last ABG at 7.26/93.1/86.2/41.4. Patient is refusing intubation in spite of being counseled by the ER physician multiple times. He understands that this would put him at a high risk of mortality. He is significantly tachy pneic at the time of evaluation. Review of Systems General: Reports: ROS unobtainable due to medical condition Medications/Allergies Home Medications Medication Instructions Recorded Confirmed Last Taken Type multivitamin 1 tab PO DAILY 05/15/19 03/19/22 03/19/22 History concentrator and homefill oxygen #1 ea 09/30/20 03/19/22 Unknown Rx system blood sugar diagnostic #100 ea 03/10/21 03/19/22 Unknown Rx pen needle, diabetic 29 gauge x #100 ea 03/10/21 03/19/22 Unknown Rx 1/2 (Comfort EZ Pen [place]) blood-glucose meter (OneTouch #1 ea 03/14/21 03/19/22 Unknown Rx Ultra2 Meter kit) lancets (OneTouch UltraSoft #100 ea 03/14/21 03/19/22 Unknown Rx Lancets) metformin 1,000 mg tablet 1,000 mg PO BID #180 tabs 04/18/21 03/19/22 03/19/22 Rx blood-glucose meter,continuous #1 ea 06/07/21 03/19/22 Unknown Rx (Dexcom G6 Financial Coordinator misc) blood-glucose sensor (Dexcom G6 #3 ea 06/07/21 03/19/22 Unknown Rx Sensor device) blood-glucose transmitter (Dexcom #1 ea 06/07/21 03/19/22 Unknown Rx G6 Transmitter device) apixaban 5 mg tablet (Eliquis) 5 mg PO BID #180 tabs 10/27/21 03/19/22 03/19/22 Rx albuterol sulfate 90 mcg/actuation 2 puff inhalation Q6H PRN 12/02/21 03/19/22 01/30/22 History aerosol inhaler (ProAir HFA) Shortness Of Breath atorvastatin 80 mg tablet 80 mg PO QAM 12/02/21 03/19/22 03/19/22 History cholecalciferol (vitamin D3) 50 100 mcg PO DAILY 12/02/21 03/19/22 03/19/22 History mcg (2,000 unit) tablet (Vitamin D3) albuterol sulfate 2.5 mg/3 mL 2.5 mg (3 mL) inhalation QID PRN 12/05/21 03/19/22 Unknown Rx (0.083 %) solution for nebulization shortness of breath or wheezing #75 mL ascorbic acid (vitamin C) 500 mg 500 mg PO DAILY 01/30/22 03/19/22 03/19/22 History tablet,extended release (Vitamin C ER) cyanocobalamin (vitamin B-12) 100 100 mcg PO DAILY 01/30/22 03/19/22 03/19/22 History mcg tablet (Vitamin B-12) duloxetine 60 mg capsule,delayed 60 mg PO BEDTIME 01/30/22 03/19/22 03/18/22 History release acetylcysteine 200 mg/mL (20 %) 100 mg (0.5 mL) inhalation 02/22/22 03/19/22 Unknown Rx solution Q4H.RESPIRATORY PRN Shortness Of Breath #30 mL amiodarone 200 mg tablet (Pacerone) 200 mg PO DAILY #30 tabs 02/22/22 03/19/22 03/19/22 Rx ferrous gluconate 324 mg (37.5 mg 324 mg PO BIDWM #60 tabs 02/22/22 03/19/22 03/17/22 Rx iron) tablet fluticasone fur. 200 mcg-umeclid 1 inh inhalation DAILY 03/19/22 03/19/22 03/19/22 History 62.5 mcg-vilant 25 mcg inhalat.powder (Trelegy Ellipta) furosemide 40 mg tablet (Lasix) 40 mg PO QAM 03/19/22 03/19/22 03/19/22 History insulin glargine U-300 conc 300 See Rx Instructions .Route .COMPLEX 03/19/22 03/19/22 03/19/22 History unit/mL (3 mL) subcutaneous pen (Toujeo Max U-300 SoloStar) isosorbide mononitrate 30 mg 15 mg PO DAILY 03/19/22 03/19/22 03/19/22 History tablet,extended release 24 hr lisinopril 10 mg tablet 10 mg PO DAILY 03/19/22 03/19/22 03/19/22 History metoprolol tartrate 100 mg tablet 100 mg PO BID 03/19/22 03/19/22 03/19/22 History potassium chloride 20 mEq 10 meq PO BEDTIME 03/19/22 03/19/22 03/18/22 History tablet,extended release spironolactone 25 mg tablet 25 mg PO DAILY 03/19/22 03/19/22 03/19/22 History Allergies Allergy/AdvReac Type Severity Reaction Status Date / Time No Known Allergies Allergy Verified 01/30/22 12:57 PFSH Acute PFSH: Medical History Atrial fibrillation CHF (congestive heart failure) CKD stage 2 due to type 2 diabetes mellitus COPD (chronic obstructive pulmonary disease) Diabetes mellitus, type II Diabetic neuropathy Difficulty with BiPAP use Dyslipidemia History of echocardiogram 2018 EF 65%. no wall motion abnormalities, Grade III/IV Diastolic Dysfunction; [facility] History of left heart catheterization 2018 normal coronary arteries; performed by Dr Zaman at [facility], report in [facility] History of right heart catheterization 2018 PCWP 15 mmHg, mean PAP 50 mmHg, responsive to SL NTG with reduction to 39 mmHg, consistent with reversibility; performed by Dr Zaman at [facility], report in [facility] History of sleep study 2018 Moderate obstructive sleep apnea, exacerbated by REM sleep, nocturnal hypoxia, elevated periodic limb movement index with a normal PLM-arousal index, abnormal sleep architecture related to first night effect, respiratory events and medications; report in [facility] Hypertension Morbid obesity On home oxygen therapy SHERLEY (obstructive sleep apnea) Surgical History S/P appendectomy Family History Mother CAD (coronary artery disease) Atrial fibrillation Father Lung disease Unknown Cancer Lung, Breast, Brain Other CHF (congestive heart failure) Social History Smoking and tobacco status: former smoker Alcohol intake: former Caregiver/support person: Yes Lives independently: Yes Household members: significant other Vitals/I&O/Wt Last Vital Signs Pulse 101 H 03/19/22 16:59 Resp 28 H 03/19/22 16:46 BP 146/119 03/19/22 12:59 Pulse Ox 95 03/19/22 16:56 O2 Del Method 03/19/22 16:46 O2 Flow Rate 15 03/19/22 12:59 FiO2 50 03/19/22 16:56 Weight last 48 hrs Weight 178.715 kg Physical Exam Narrative: General: Tachypneic on BiPAP, in respiratory distress HEENT: PERRLA, pupils bilaterally equal and reactive, pallors not present Chest: Poor air entry bilaterally CVS: S1-S2 regular, no murmurs, no tachycardia, no gallops, no rubs Abdomen: Soft, nontender, no organomegaly, bowel sounds present Neuro: No focal deficits, no facial deformity, AO x3, power 5/5 in all limbs Urinary Catheter Management: Lord: Cath Placed During This Visit: yes Urinary Catheter Date of Insertion: 11/27/22 Urinary Catheter Time of Insertion: 14:28 Data 03/19/22 14:40 03/19/22 16:33 Other Labs: Radiology Impressions Chest X-Ray 03/19/22 13:12 IMPRESSION: Moderate to severe left basilar atelectasis and/or infiltrate and/or effusion. Laboratory Results WBC 12.3 10^3/uL (4.0-10.0) H 03/19/22 14:40 RBC 3.42 10^6/uL (4.1-5.3) L 03/19/22 14:40 Hgb 9.8 g/dL (11.7-16.6) L 03/19/22 14:40 Hct 34.4 % (42.0-52.0) L 03/19/22 14:40 MCV 100.6 fl (80-94) H 03/19/22 14:40 MCH 28.7 pg (28.0-34.0) 03/19/22 14:40 MCHC 28.5 g/dL (30.0-36.0) L 03/19/22 14:40 RDW 14.7 % (12.1-15.1) 03/19/22 14:40 Plt Count 196 10^3/cmm (130-400) 03/19/22 14:40 MPV 12.5 fL (7.4-10.4) H 03/19/22 14:40 Neut % (Auto) 91.6 % 03/19/22 14:40 Lymph % (Auto) 4.4 % 03/19/22 14:40 [place] % (Auto) 2.8 % 03/19/22 14:40 Eos % (Auto) 0.2 % 03/19/22 14:40 Baso % (Auto) 0.4 % 03/19/22 14:40 Neut # (Auto) 11. 10^3/uL (1.8-7.7) H 03/19/22 14:40 Lymph # (Auto) 0.5 10^3/uL (0.8-4.8) L 03/19/22 14:40 [place] # (Auto) 0.4 10^3/uL (0.2-0.9) 03/19/22 14:40 Eos # (Auto) 0.0 10^3/uL (0.0-0.8) 03/19/22 14:40 Baso # (Auto) 0.1 10^3/uL (0.0-0.1) 03/19/22 14:40 Nucleated RBC % (auto) 0 % 03/19/22 14:40 Nucleated RBCs # 0.0 /100WBC 03/19/22 14:40 Specimen Type Arterial 03/19/22 15:11 Sample Site Radial, right 03/19/22 15:11 ABG pH 7.26 (7.35-7.45) L 03/19/22 15:11 ABG pCO2 93.1 mmHg (35-45) H* 03/19/22 15:11 ABG pO2 86.2 mmHg (80.0-100.0) 03/19/22 15:11 ABG HCO3 41.4 mmol/L (22-26) H 03/19/22 15:11 ABG O2 Saturation 96.8 03/19/22 15:11 ABG Base Excess 11.5 mmol/L (-2.0-2.0) H 03/19/22 15:11 Jax Test Pos 03/19/22 15:11 A-a O2 Gradient 20.7 mmHg (5-10) H 03/19/22 15:11 Hematocrit 31.2 % (42-52) L 03/19/22 15:11 Hgb O2 Saturation 95.1 % (95-100) 03/19/22 15:11 Carboxyhemoglobin 1.4 %THgb (0.4-20.1) 03/19/22 15:11 Methemoglobin 0.4 % (0.4-1.5) 03/19/22 15:11 Total Hemoglobin 10.2 g/dL (14-18) L 03/19/22 15:11 Sodium 140.0 mmol/L (131-143) 03/19/22 15:11 Potassium 5.8 mmol/L (3.5-5.0) H 03/19/22 15:11 Glucose 212.0 mg/dL (70-115) H 03/19/22 15:11 Ionized Calcium 1.2 mmol/L (1.1-1.4) 03/19/22 15:11 O2 Delivery Device Bipap 03/19/22 15:11 FiO2 50.0 % 03/19/22 15:11 Enroute Controller ID glc 03/19/22 15:11 Sodium 130 mmol/L (136-145) L 03/19/22 16:33 Potassium 5.7 mmol/L (3.5-5.1) H 03/19/22 16:33 Chloride 87 mmol/L (98-107) L 03/19/22 16:33 Carbon Dioxide 36 mmol/L (22-29) H 03/19/22 16:33 Anion Gap 12.7 (5-19) 03/19/22 16:33 BUN 17 mg/dL (8-23) 03/19/22 16:33 Creatinine 1.5 mg/dL (0.7-1.2) H 03/19/22 16:33 GFR Calculation 47.4 mL/min (90-130) L 03/19/22 16:33 Glucose 206 mg/dL (65-115) H 03/19/22 16:33 Calculated Osmolality 278 mOsm/kg (285-295) L 03/19/22 16:33 Lactic Acid 1.7 mmol/L (0.5-2.2) 03/19/22 14:40 Calcium 9.2 mg/dL (8.5-10.5) 03/19/22 16:33 Magnesium 1.9 mg/dL (1.7-2.3) 03/19/22 14:40 Total Bilirubin 0.2 mg/dL (0.15-1.2) 03/19/22 14:40 AST 12 U/L (0-40) 03/19/22 14:40 ALT 12 U/L (0-41) 03/19/22 14:40 Alkaline Phosphatase 67 U/L (40-130) 03/19/22 14:40 Troponin T Baseline 35 ng/L (0-15) H 03/19/22 14:40 Troponin T 120 Minute 35.26 ng/L (0-15) H 03/19/22 16:30 Delta Troponin T 0.26 ABS# (0-10) 03/19/22 16:30 Total Protein 7.1 g/dL (6.6-8.7) 03/19/22 14:40 Albumin 3.8 g/dL (3.5-5.2) 03/19/22 14:40 Globulin 3.3 g/dL (1.3-4.6) 03/19/22 14:40 Urine Color Yellow (Yellow) 03/19/22 14:30 Urine Appearance Clear (CLEAR) 03/19/22 14:30 Urine pH 5 (5-7) 03/19/22 14:30 Ur Specific [place] 1.020 (1.005-1.030) 03/19/22 14:30 Urine Protein 1+ (Negative) H 03/19/22 14:30 Urine Glucose (UA) 1+ (Normal) H 03/19/22 14:30 Urine Ketones Negative (Negative) 03/19/22 14:30 Urine Blood Neg (Negative) 03/19/22 14:30 Urine Nitrate Negative (Negative) 03/19/22 14:30 Urine Bilirubin Neg (Negative) 03/19/22 14:30 Urine Urobilinogen Neg mg/dL (Negative) 03/19/22 14:30 Ur Leukocyte Esterase Negative (Negative) 03/19/22 14:30 Urine RBC None /hpf (0-2) 03/19/22 14:30 Urine WBC None /hpf (0-5) 03/19/22 14:30 Ur Squamous Epith Cells None /hpf (0-5) 03/19/22 14:30 Amorphous Sediment 1+ /hpf 03/19/22 14:30 Urine Bacteria None /hpf (NONE) 03/19/22 14:30 Micro: Microbiology 03/19/22 16:33 Blood Culture - Preliminary Blood SPECIMEN COLLECTED 03/19/22 16:33 Blood Culture - Preliminary Blood SPECIMEN COLLECTED ABG Interpretation 1: 03/19/22 03/19/22 13:00 15:11 ABG pH 7.16 L* 7.26 L ABG pCO2 117.0 H* 93.1 H* ABG pO2 84.9 86.2 ABG HCO3 41.3 H 41.4 H ABG O2 Saturation 94.9 96.8 ABG Base Excess 9.4 H 11.5 H A&P Assessment and plan (1) Acute on chronic respiratory failure with hypoxia and hypercapnia: Patient presenting today with acute on chronic respiratory failure with hypoxia and hypercapnia. Noted to have significant hypercapnia today. Recommended intubation as there has been minimal improvement on BiPAP and patient continues to have significant work of breathing. Patient is currently refused intubation and mechanical ventilation. He is continuing on BiPAP. Likely that his symptoms are a combination of obesity hypoventilation, COPD exacerbation, volume overload with CHF. Started on Solu-Medrol 60 mg IV every 8 hours Scheduled budesonide and DuoNeb inhalation. Added additional acetylcysteine i nhalation to clear airway secretions. Lasix 80 mg IV every 12 hours. Monitor urine output closely. Troponin series without significant delta, no acute ST-T waves on EKG. A. fib currently rate controlled. Empiric antibiotic coverage with levofloxacin 750 mg daily in keeping with last sputum culture showing Stenotrophomonas maltophilia. Check sputum culture and gram stain Check COVID and influenza PCR N.p.o. except sips and meds given high risk of aspiration. Continue Eliquis, low suspicion for PE given that patient is on chronic anticoagulation. 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 Initially stated that he would not want to be intubated again and would like to hold off as much as possible. However counseled extensively that the time to intubate would be now given his significant respiratory distress at which time he states he would like to be DNI. DVT prophylaxis: Currently on anticoagulation with Eliquis Attestations Medical Necessity Statement*: Greater than 2 midnight admission is anticipated for above defined care Critical Care Time: The high probability of a clinically significant, sudden or life threatening deterioration of the patient's [respiratory, cardiac, metabolic] system(s) required my full and direct attention, intervention and personal management. The critical care time is as shown. This time is in addition to time spent performing any reported procedures but includes the following: [x] Data and vital sign review and interpretation [x] Patient assessment, examination and intervention [x] Documentation [x] Medication orders and management Coding Level of Care Code Acute Dark Room Attendant for Chg Fwd Diagnoses Acute on chronic respiratory failure with hypoxia and hypercapnia J96.21; J96.22 SHERLEY (obstructive sleep apnea) G47.33 CHF (congestive heart failure) I50.33 Heart failure type: diastolic Heart failure chronicity: acute on chronic Diabetes mellitus, type II E11.65; Z79.4 Diabetes mellitus complication status: with hyperglycemia Diabetes mellitus terminal carman insulin use: with terminal carman use Hyperkalemia E87.5
[2022-03-19 17:30] LABS: Troponin 5 2HR Delta 0.26 ABS# (0-10)
[2022-03-19 18:45] LABS: Glucose Point of Care 228 mg/dL (70-110)
[2022-03-19 19:23] LABS: Adenovirus Not Detected (NOT DETECT); Chlamydia Pneumoniae Not Detected (NOT DETECT); Coronavirus 229E,HKU1,NL63,OC4 Not Detected (NOT DETECT); Human Metapneumovirus Not Detected (NOT DETECT); Human Rhinovirus/Enterovirus Not Detected (NOT DETECT); Influenza A Not Detected (NOT DETECT); Influenza A H1 Not Detected (NOT DETECT); Influenza A H1-2009 Not Detected (NOT DETECT); Influenza A H3 Not Detected (NOT DETECT); Influenza B Not Detected (NOT DETECT); Mycoplasma Pneumoniae Not Detected (NOT DETECT); Parainfluenza Virus Type 1 Not Detected (NOT DETECT); Parainfluenza Virus Type 2 Not Detected (NOT DETECT); Parainfluenza Virus Type 3 Not Detected (NOT DETECT); Parainfluenza Virus Type 4 Not Detected (NOT DETECT); Respiratory Syncytial Virus A Not Detected (NOT DETECT); Respiratory Syncytial Virus B Not Detected (NOT DETECT); SARS-COV-2 Not Detected (NOT DETECT)
[2022-03-19] MEDS: ipratropium-albuterol 3 mL Neb INHALATION (19:26)
[2022-03-19] MEDS: budesonide 0.5 mg/2 mL Neb INHALATION (19:26)
[2022-03-19] MEDS: rocuronium 10 mg/mL INJ 5mL 100 MG IVP (20:28)
[2022-03-19] MEDS: propofol 1,000 MG/100 ML INJ 26.81 MG IV (20:30)
--- NOTE | 2022-03-19 20:33 | XRR_ITS ---
PROCEDURE INFORMATION: Exam: XR Chest Exam date and time: 03/19/2022 10:20 PM Age: 61 years old Clinical indication: Device placement; Ett placement (vent status); Additional info: Ett placement confirmation TECHNIQUE: Imaging protocol: Radiologic exam of the chest. Views: 1 view. COMPARISON: CR (CHEST, ) 03/19/2022 2:26 PM FINDINGS: Tubes, catheters and devices: Endotracheal tube placement with tip over the distal trachea, 2.3 cm proximal to the paco. Enteric tube tip is beyond the proximal portion of the stomach and is not seen because it is below the inferior margin of the film. Lungs: Moderate to severe left basilar atelectasis and/or infiltrate and/or effusion. Pleural spaces: Unremarkable. No pleural effusion. No pneumothorax. Heart/Mediastinum: Unremarkable. No cardiomegaly. Bones/joints: Unremarkable. Other findings: Patient rotation to the left. XR/XR chest 1V portable [id number] IMPRESSION: 1. Moderate to severe left basilar atelectasis and/or infiltrate and/or effusion. 2. Endotracheal tube placement with tip over the distal trachea, 2.3 cm proximal to the paco. 3. Enteric tube tip is beyond the proximal portion of the stomach and is not seen because it is below the inferior margin of the film.
[2022-03-19] MEDS: haloperidol inj 5 mg/mL INJ 1 mL IM (21:09)
[2022-03-19 21:22] LABS: Glucose Point of Care 261 mg/dL (70-110)
[2022-03-19] MEDS: insulin regular-human 10 UNIT in SYRINGE 1 EACH IVP (21:26)
[2022-03-19 21:27] LABS: Troponin 5 6HR 38.25 ng/L (0-15); Troponin 5 6HR Delta 3.25 ng/L (0-12)
[2022-03-19 21:37] LABS: ABG PH Result 7.49 (7.35-7.45); Arterial Blood Gas Hematocrit 27.3 % (42-52); Base Excess ABG 14.7 mmol/L (-2.0-2.0); Blood Gas Allen Test Pos; Blood Gas Sample Site Radial, right; Blood Gas Sample Type Arterial; Blood Gas Tidal Volume 0.55; HCO3 ABG 39.7 mmol/L (22-26); Oxygen Device VENT; PO2 ABG 62.7 mmHg (80.0-100.0)
[2022-03-19] MEDS: calcium chloride 10% Syr 10 mL 1 GM IVP (22:01)
[2022-03-19] MEDS: FUROsemide 10 mg/mL SDV 4mL 80 MG IVP (22:56)
[2022-03-19] MEDS: insulin glargine 100 units/1 mL 36 UNIT SUBCUT (22:58)
[2022-03-19] MEDS: levofloxacin-dextrose 5 % 750 MG/150 ML PREMIX 100 MG IV (23:07)
[2022-03-20] VITALS (60 sets, daily range): BP systolic 77–128; BP diastolic 50–83; PULSE 81–122; RESP 16–18; TEMP 21.1–36.8; O2SAT 86–97
--- NOTE | 2022-03-20 00:34 | XRR_ITS ---
PROCEDURE INFORMATION: Exam: XR Abdomen Exam date and time: 03/20/2022 2:19 AM Age: 61 years old Clinical indication: Device placement; Gi device; Nasogastric tube; Additional info: Og tube placement TECHNIQUE: Imaging protocol: Radiologic exam of the abdomen. Views: Frontal supine view of the abdomen. 1 View. COMPARISON: CR (CHEST, ) 03/19/2022 10:20 PM FINDINGS: Tubes, catheters and devices: Enteric tube tip below the diaphragm over the gastric bubble. Heart/Mediastinum: Cardiomegaly. Pleural spaces: Moderate left pleural effusion somewhat visualized. Gastrointestinal tract: Normal. No bowel dilation. Bones/joints: Unremarkable. XR/XR KUB portable [id number] IMPRESSION: 1. Enteric tube tip below the diaphragm over the gastric bubble. 2. Moderate left pleural effusion somewhat visualized. 3. Cardiomegaly.
--- NOTE | 2022-03-20 00:58 | ED_ITS ---
HPI - SOB/Dyspnea General: Chief Complaint: Shortness of Breath/Dyspnea Stated Complaint: RESP DISTRESS Time Seen by Provider: 03/19/22 12:59 Source: patient Mode of arrival: ambulatory History of Present Illness: HPI Narrative: . Severity: severe Exacerbating factors: exertion and coughing Relieving factors: nothing Treatment prior to arrival: oxygen Related Data: Home oxygen amount: 4 liters [facility] ED PFSH: Medical History Atrial fibrillation CHF (congestive heart failure) CKD stage 2 due to type 2 diabetes mellitus COPD (chronic obstructive pulmonary disease) Diabetes mellitus, type II Diabetic neuropathy Difficulty with BiPAP use Dyslipidemia History of echocardiogram 2018 EF 65%. no wall motion abnormalities, Grade III/IV Diastolic Dysfunction; report in [employer] History of left heart catheterization 2018 normal coronary arteries; performed by Dr Zaman at [facility], report in [employer] History of right heart catheterization 2018 PCWP 15 mmHg, mean PAP 50 mmHg, responsive to SL NTG with reduction to 39 mmHg, consistent with reversibility; performed by Dr Zaman at [facility], report in [employer] History of sleep study 2018 Moderate obstructive sleep apnea, exacerbated by REM sleep, nocturnal hypoxia, elevated periodic limb movement index with a normal PLM-arousal index, abnormal sleep architecture related to first night effect, respiratory events and medications; report in [employer] Hypertension Morbid obesity On home oxygen therapy SHERLEY (obstructive sleep apnea) Surgical History S/P appendectomy Family History Mother CAD (coronary artery disease) Atrial fibrillation Father Lung disease Unknown Cancer Lung, Breast, Brain Other CHF (congestive heart failure) Social History Smoking and tobacco status: former smoker Alcohol intake: former Caregiver/support person: Yes Lives independently: Yes Household members: significant other Procedures Intubation Time out performed: Yes sedative: Etomidate Mg Given: 20 paralytic: Rocuronium Mg Given: 100 Laryngoscope: Librado ET Tube Size: 8 ET Tube Uncuffed: No Tube Secured Depth (cm): 25 Tube Secured Location: lips Tube Placement Confirmation: visualized tube passing through cords, equal breath sounds bilaterally and no breath sounds over epigastrium Patient Tolerated Procedure: well Course Vital Signs: Vital signs: Vital Signs Temperature 98.3 F 03/19/22 20:00 Pulse Rate 88 03/20/22 00:05 Respiratory Rate 18 03/19/22 23:09 Blood Pressure 113/72 03/20/22 00:05 Pulse Oximetry 94 03/20/22 00:05 Oxygen Delivery Me thod 03/19/22 19:26 Oxygen Flow Rate 15 03/19/22 20:00 Fraction of Inspir ed Oxygen 40 03/19/22 23:09 MDM - SOB/Dyspnea Medical Decision Making I was called to ICU to intubate patient Lab Data 03/19/22 14:40 03/19/22 16:33 Labs/Radiology: Radiology Impressions Chest X-Ray 03/19/22 20:33 IMPRESSION: 1. Moderate to severe left basilar atelectasis and/or infiltrate and/or effusion. 2. Endotracheal tube placement with tip over the distal trachea, 2.3 cm proximal to the paco. 3. Enteric tube tip is beyond the proximal portion of the stomach and is not seen because it is below the inferior margin of the film. Laboratory Results WBC 12.3 10^3/uL (4.0-10.0) H 03/19/22 14:40 RBC 3.42 10^6/uL (4.1-5.3) L 03/19/22 14:40 Hgb 9.8 g/dL (11.7-16.6) L 03/19/22 14:40 Hct 34.4 % (42.0-52.0) L 03/19/22 14:40 MCV 100.6 fl (80-94) H 03/19/22 14:40 MCH 28.7 pg (28.0-34.0) 03/19/22 14:40 MCHC 28.5 g/dL (30.0-36.0) L 03/19/22 14:40 RDW 14.7 % (12.1-15.1) 03/19/22 14:40 Plt Count 196 10^3/cmm (130-400) 03/19/22 14:40 MPV 12.5 fL (7.4-10.4) H 03/19/22 14:40 Neut % (Auto) 91.6 % 03/19/22 14:40 Lymph % (Auto) 4.4 % 03/19/22 14:40 [place] % (Auto) 2.8 % 03/19/22 14:40 Eos % (Auto) 0.2 % 03/19/22 14:40 Baso % (Auto) 0.4 % 03/19/22 14:40 Neut # (Auto) 11. 10^3/uL (1.8-7.7) H 03/19/22 14:40 Lymph # (Auto) 0.5 10^3/uL (0.8-4.8) L 03/19/22 14:40 [place] # (Auto) 0.4 10^3/uL (0.2-0.9) 03/19/22 14:40 Eos # (Auto) 0.0 10^3/uL (0.0-0.8) 03/19/22 14:40 Baso # (Auto) 0.1 10^3/uL (0.0-0.1) 03/19/22 14:40 Nucleated RBC % (auto) 0 % 03/19/22 14:40 Nucleated RBCs # 0.0 /100WBC 03/19/22 14:40 Specimen Type Arterial 03/19/22 15:11 Sample Site Radial, right 03/19/22 15:11 ABG pH 7.26 (7.35-7.45) L 03/19/22 15:11 ABG pCO2 93.1 mmHg (35-45) H* 03/19/22 15:11 ABG pO2 86.2 mmHg (80.0-100.0) 03/19/22 15:11 ABG HCO3 41.4 mmol/L (22-26) H 03/19/22 15:11 ABG O2 Saturation 96.8 03/19/22 15:11 ABG Base Excess 11.5 mmol/L (-2.0-2.0) H 03/19/22 15:11 Jax Test Pos 03/19/22 15:11 A-a O2 Gradient 20.7 mmHg (5-10) H 03/19/22 15:11 Hematocrit 31.2 % (42-52) L 03/19/22 15:11 Hgb O2 Saturation 95.1 % (95-100) 03/19/22 15:11 Carboxyhemoglobin 1.4 %THgb (0.4-20.1) 03/19/22 15:11 Methemoglobin 0.4 % (0.4-1.5) 03/19/22 15:11 Total Hemoglobin 10.2 g/dL (14-18) L 03/19/22 15:11 Sodium 140.0 mmol/L (131-143) 03/19/22 15:11 Potassium 5.8 mmol/L (3.5-5.0) H 03/19/22 15:11 Glucose 212.0 mg/dL (70-115) H 03/19/22 15:11 Ionized Calcium 1.2 mmol/L (1.1-1.4) 03/19/22 15:11 O2 Delivery Device Bipap 03/19/22 15:11 FiO2 50.0 % 03/19/22 15:11 Commercial Pest Control Representative ID glc 03/19/22 15:11 Sodium 135 mmol/L (136-145) L 03/19/22 14:40 Potassium 6.2 mmol/L (3.5-5.1) H 03/19/22 14:40 Chloride 90 mmol/L (98-107) L 03/19/22 14:40 Carbon Dioxide 40 mmol/L (22-29) H 03/19/22 14:40 Anion Gap 11.2 (5-19) 03/19/22 14:40 BUN 16 mg/dL (8-23) 03/19/22 14:40 Creatinine 1.5 mg/dL (0.7-1.2) H 03/19/22 14:40 GFR Calculation 47.4 mL/min (90-130) L 03/19/22 14:40 Glucose 232 mg/dL (65-115) H 03/19/22 14:40 Calculated Osmolality 289 mOsm/kg (285-295) 03/19/22 14:40 Lactic Acid 1.7 mmol/L (0.5-2.2) 03/19/22 14:40 Calcium 9.3 mg/dL (8.5-10.5) 03/19/22 14:40 Magnesium 1.9 mg/dL (1.7-2.3) 03/19/22 14:40 Total Bilirubin 0.2 mg/dL (0.15-1.2) 03/19/22 14:40 AST 12 U/L (0-40) 03/19/22 14:40 ALT 12 U/L (0-41) 03/19/22 14:40 Alkaline Phosphatase 67 U/L (40-130) 03/19/22 14:40 Troponin T Baseline 35 ng/L (0-15) H 03/19/22 14:40 Troponin T 120 Minute 35.26 ng/L (0-15) H 03/19/22 16:30 Delta Troponin T 0.26 ABS# (0-10) 03/19/22 16:30 Total Protein 7.1 g/dL (6.6-8.7) 03/19/22 14:40 Albumin 3.8 g/dL (3.5-5.2) 03/19/22 14:40 Globulin 3.3 g/dL (1.3-4.6) 03/19/22 14:40 Urine Color Yellow (Yellow) 03/19/22 14:30 Urine Appearance Clear (CLEAR) 03/19/22 14:30 Urine pH 5 (5-7) 03/19/22 14:30 Ur Specific [place] 1.020 (1.005-1.030) 03/19/22 14:30 Urine Protein 1+ (Negative) H 03/19/22 14:30 Urine Glucose (UA) 1+ (Normal) H 03/19/22 14:30 Urine Ketones Negative (Negative) 03/19/22 14:30 Urine Blood Neg (Negative) 03/19/22 14:30 Urine Nitrate Negative (Negative) 03/19/22 14:30 Urine Bilirubin Neg (Negative) 03/19/22 14:30 Urine Urobilinogen Neg mg/dL (Negative) 03/19/22 14:30 Ur Leukocyte Esterase Negative (Negative) 03/19/22 14:30 Urine RBC None /hpf (0-2) 03/19/22 14:30 Urine WBC None /hpf (0-5) 03/19/22 14:30 Ur Squamous Epith Cells None /hpf (0-5) 03/19/22 14:30 Amorphous Sediment 1+ /hpf 03/19/22 14:30 Urine Bacteria None /hpf (NONE) 03/19/22 14:30 Nasal Influ A H1 2008 PCR Not detected (NOT DETECT) 03/19/22 15:44 Adenovirus (PCR) Not detected (NOT DETECT) 03/19/22 15:44 C. pneumoniae DNA (PCR) Not detected (NOT DETECT) 03/19/22 15:44 Coronavirus 229E (PCR) Cancelled 03/19/22 15:44 Coronavirus 229E (PCR) Not detected (NOT DETECT) 03/19/22 15:44 Human Metapneumovir PCR Not detected (NOT DETECT) 03/19/22 15:44 Influenza A (H1) PCR Not detected (NOT DETECT) 03/19/22 15:44 Influenza A (H3) PCR Not detected (NOT DETECT) 03/19/22 15:44 Influenza Type A (PCR) Not detected (NOT DETECT) 03/19/22 15:44 Influenza Type B (PCR) Not detected (NOT DETECT) 03/19/22 15:44 M. pneumoniae (PCR) Not detected (NOT DETECT) 03/19/22 15:44 Parainfluenza 1 (PCR) Not detected (NOT DETECT) 03/19/22 15:44 Parainfluenza 2 (PCR) Not detected (NOT DETECT) 03/19/22 15:44 Parainfluenza 3 (PCR) Not detected (NOT DETECT) 03/19/22 15:44 Parainfluenza 4 (PCR) Not detected (NOT DETECT) 03/19/22 15:44 RSV Type A (PCR) Not detected (NOT DETECT) 03/19/22 15:44 RSV Type B (PCR) Not detected (NOT DETECT) 03/19/22 15:44 Entero/Rhino (PCR) Not detected (NOT DETECT) 03/19/22 15:44 SARS-CoV-2 (PCR) Cancelled 03/19/22 15:44 SARS-CoV-2 (PCR) Not detected (NOT DETECT) 03/19/22 15:44 Discharge Plan Discharge Patient Disposition: Admitted As Inpatient Admit Provider: Nany Carranza Clinical Impression: Acute exacerbation of chronic obstructive airways disease Condition: Stable Coding Level of Care Code ED Environmental Remediation Engineer for Chg Fwd
[2022-03-20] MEDS: propofol 1,000 MG/100 ML INJ 26.81 MG IV (01:20)
[2022-03-20] MEDS: propofol 1,000 MG/100 ML INJ 64.34 MG IV (03:01)
[2022-03-20] MEDS: ipratropium-albuterol 3 mL Neb INHALATION ×4 (03:06→19:59)
[2022-03-20 03:30] LABS: ABG PCO2 51.9 mmHg (35-45); Arterial Blood Gas Hematocrit 29.8 % (42-52); Blood Gas Allen Test Pos; Blood Gas Sample Site Radial, right; Blood Gas Sample Type Arterial; HCO3 ABG 40.1 mmol/L (22-26); Oxygen Device VENT; PO2 ABG 66.2 mmHg (80.0-100.0)
[2022-03-20 03:51] LABS: Basophils % 0.1 %; Eosinophils % 0.1 %; Hematocrit 28.3 % (42.0-52.0); Hemoglobin 8.4 g/dL (11.7-16.6); Lymphocytes # 0.6 10^3/uL (0.8-4.8); Lymphocytes % 8.4 %; Mean Corpuscular HGB Conc 29.7 g/dL (30.0-36.0); Mean Corpuscular Volume 97.6 fl (80-94); Mean Platelet Volume 13.4 fL (7.4-10.4); Monocytes # 0.1 10^3/uL (0.2-0.9); Monocytes % 1.5 %; Neutrophils # 6.48 10^3/uL (1.8-7.7); Neutrophils % 89.5 %; Nucleated Red Blood Cells % 0 %; Platelet Count 149 10^3/cmm (130-400); Red Cell Distribution Width 14.6 % (12.1-15.1); White Blood Count 7.3 10^3/uL (4.0-10.0)
[2022-03-20 04:20] LABS: Alanine Aminotransferase 9 U/L (0-41); Albumin Level 3.2 g/dL (3.5-5.2); Alkaline Phosphatase 55 U/L (40-130); Anion Gap 14.7 (5-19); Aspartate Amino Transferase 14 U/L (0-40); Blood Urea Nitrogen 27 mg/dL (8-23); Calcium 9.6 mg/dL (8.5-10.5); Carbon Dioxide 36 mmol/L (22-29); Chloride 92 mmol/L (98-107); Globulin 2.8 g/dL (1.3-4.6); Glomerular Filtration Rate 36.1 mL/min (90-130); Glucose 225 mg/dL (65-115); Osmolality Calculated 296 mOsm/kg (285-295); Potassium 5.7 mmol/L (3.5-5.1); Sodium 137 mmol/L (136-145); Total Bilirubin 0.3 mg/dL (0.15-1.2)
[2022-03-20] MEDS: propofol 1,000 MG/100 ML INJ 53.62 MG IV (04:57)
[2022-03-20 05:01] LABS: Slide Review Slide Review Perform
[2022-03-20] MEDS: atorvastatin 40 mg Tablet 80 MG PO (05:02)
[2022-03-20] MEDS: sodium polystyrene sulfonate 15 gm/60 mL Btl PO (06:27)
[2022-03-20] MEDS: insulin lispro 100 unit/1 mL 10 UNIT SUBCUT (06:36)
[2022-03-20] MEDS: calcium gluconate 0.9% NaCL 1 GM/50 ML PREMIX IV (06:38)
[2022-03-20] MEDS: dextrose 50% syringe 50 mL IVP (06:38)
[2022-03-20] MEDS: propofol 1,000 MG/100 ML INJ 42.89 MG IV ×5 (07:50→17:51)
[2022-03-20] MEDS: acetylcysteine 200 mg/mL SDV 4 mL INHALATION ×2 (08:00→13:01)
[2022-03-20] MEDS: budesonide 0.5 mg/2 mL Neb INHALATION ×2 (08:00→19:59)
[2022-03-20 08:09] LABS: Glucose Point of Care 302 mg/dL (70-110)
[2022-03-20] MEDS: pantoprazole DR 40 mg Tablet PO (08:46)
[2022-03-20] MEDS: insulin glargine 100 units/1 mL 32 UNIT SUBCUT (08:46)
[2022-03-20] MEDS: lisinopril 10 mg Tablet PO (08:46)
[2022-03-20] MEDS: insulin lispro 100 unit/1 mL SUBCUT ×4 (08:46→20:32)
[2022-03-20] MEDS: spironolactone 25 mg Tablet PO (08:47)
[2022-03-20] MEDS: amiodarone 200 mg Tablet PO (08:47)
[2022-03-20] MEDS: metoprolol tartrate 50 mg Tablet 100 MG PO ×2 (08:47→16:56)
[2022-03-20] MEDS: apixaban 5 mg Tablet PO ×2 (08:47→16:56)
[2022-03-20] MEDS: isosorbide mononitrate ER 30 mg Tablet 15 MG PO (08:47)
--- NOTE | 2022-03-20 09:56 | PC.CHAP ---
Pastoral Care Encounter/Spiritual Assessment Type of Contact [] Declined director regulatory agency visit [] Patient/Family/Request visit [] Outpatient visit [] Follow-up visit [] Physician referral [] Code/Alert [x] Routine visit [] Staff referral [] Actively dying [] Patient sleeping [x] Family support [] [] Out of room [] Palliative care [] [] Receiving care in room [] Pre-surgical visit [] Trauma [] Long length of stay [x] ICU visit [x] Other: vent.... Relational/Emotional Strength [] Patient feels connected with others/family/visitors/staff [] Distress [] Loneliness/isolation [] Abandonment Spirituality of Patient [] Person of Ruchi [] Attends Protestant of their Ruchi [] Believes in Prayer [] Reads Bible or Scientologist materials [] There are Spiritual issues to be addressed Fringe Maker 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 [x] Prayer [] Active listening [] Non-anxious presence [] Spiritual/emotional support [] Crisis/trauma care [] Spiritual counseling [] Bereavement support [] Provided bereavement packet [] Provided Bible/devotional materials [] Provided toy/stuffed animal, coloring book to patient or family member [] Provided Communion [] Anointing/[place] [] Salvation [x] Completed spiritual assessment [] Other: Impact on Illness or Injury [] Angry [] Fearful [] Anxious [] Often cries [] Exhaustion [] Unable to work [] Unable to attend uatsdin [] Unable to walk/stand [] Unable to read [] Unable to drive [] Unable to eat/drink [] Unable to sleep [] Unable to be with family [] Patient intubated [] Other: Summary Time spent with patient
--- NOTE | 2022-03-20 10:29 | P.PN_ITS ---
Subjective Subjective: Overnight events noted. Patient needed to be intubated last evening due to increasing agitation in spite of being on high-dose Precedex. He attempted to rip his BiPAP off multiple times. Patient was confused. His gave consent to proceed with endotracheal intubation. He is currently intubated and sedated, settings 40% FiO2, tidal volume 750, PEEP of 10. ABG this morning 7.5/51.9/66.2/40.1. Worsening JAMES with creatinine at 1.9 today. Medications: Reviewed: Yes Vitals/I&O/Wt Last Vital Signs Temp 97.0 F L 03/20/22 07:35 Pulse 100 03/20/22 10:00 Resp 16 03/20/22 10:19 BP 99/69 03/20/22 10:00 Pulse Ox 91 03/20/22 10:19 O2 Del Method 03/20/22 08:07 O2 Flow Rate 15 03/19/22 20:00 FiO2 40 03/20/22 10:19 03/19/22 03/20/22 03/20/22 22:59 06:59 14:59 Intake Total 75.28 / 75.28 454.516 / 529.796 254.281 / 254.281 Output Total 550 / 550 Balance 75.28 / 75.28 -95.484 / -20.204 254.281 / 254.281 Weight last 48 hrs Weight 178.715 kg Physical Exam Narrative: General: intubated, sedated HEENT: PERRLA, pupils bilaterally equal and reactive, pallors not present Chest: Normal vesicular breath sounds, no added sounds, equal good air entry bilaterally CVS: S1-S2 regular, no murmurs, no tachycardia, no gallops, no rubs. Abdomen: Soft, nontender, no organomegaly, bowel sounds present Neuro: intubated, sedated EXT: 2+ pitting edema Urinary Catheter Management: Lord: Cath Placed During This Visit: yes Reason for Continuing Indwelling Catheter: Accurate Measurement of Urinary Output in Critically Ill Patients Urinary Catheter Date of Insertion: 03/19/22 Urinary Catheter Time of Insertion: 14:28 Data 03/20/22 03:04 03/20/22 03:04 Micro: Microbiology 03/19/22 16:33 Blood Culture - Preliminary Blood SPECIMEN COLLECTED 03/19/22 16:33 Blood Culture - Preliminary Blood SPECIMEN COLLECTED A&P Assessment and plan (1) Acute on chronic respiratory failure with hypoxia and hypercapnia: Patient presenting today with acute on chronic respiratory failure with hypoxia and hypercapnia. Likely precipitated by inconsistent BiPAP use at home. Intubated overnight for hypercapnic respiratory failure Likely that his symptoms are a combination of obesity hypoventilation, COPD exacerbation, volume overload with CHF. continue on Solu-Medrol 60 mg IV every 8 hours Scheduled budesonide and DuoNeb inhalation. Added additional acetylcysteine inhalation to clear airway secretions. Lasix 80 mg IV every 12 hours. Monitor urine output closely. Will optimize him with diuresis, keep net negative balance and attempt extubation in the upcoming 24 hrs Troponin series without significant delta, no acute ST-T waves on EKG. A. fib currently rate controlled. Empiric antibiotic coverage with levofloxacin 750 mg daily in keeping with last sputum culture showing Stenotrophomonas maltophilia. Check sputum culture and gram stain negative COVID and influenza PCR N.p.o. except sips and meds given high risk of aspiration. Continue Eliquis, low suspicion for PE given that patient is on chronic anticoagulation. Continue amiodarone. HR currently controlled All updates discussed with at bedside (2) SHERLEY (obstructive sleep apnea): (3) CHF (congestive heart failure): Lasix as above Qualifiers: Heart failure type: diastolic Heart failure chronicity: acute on chronic Qualified Code(s): I50.33 - Acute on chronic diastolic (congestive) heart failure (4) Diabetes mellitus, type II: Insulin sliding scale Qualifiers: Diabetes mellitus complication status: with hyperglycemia Diabetes mellitus watermelon harvesting supervisor insulin use: with watermelon harvesting supervisor use Qualified Code(s): E11.65 - Type 2 diabetes mellitus with hyperglycemia; Z79.4 - FPC (current) use of insulin (5) Hyperkalemia: Insulin 10 units with dextrose 25% 25 mL Kayexalate x1 Plan CODE STATUS: limited resuscitation. No chest compressions, okay for intubation DVT prophylaxis: Currently on anticoagulation with Eliquis Attestations Medical Necessity Statement*: continued admission for acute on chronic hypoxic hypercapneic respiratory failure needing mechanical ventilation Critical Care Time: The high probability of a clinically significant, sudden or life threatening deterioration of the patient's [respiratory,renal,cardiac] system(s) required my full and direct attention, intervention and personal management. The critical care time is as shown. This time is in addition to time spent performing any reported procedures but includes the following: [x] Data and vital sign review and interpretation [x] Patient assessment, examination and intervention [x] Documentation [x] Medication orders and management Critical Care Time (min): 40 Coding Level of Care Code Acute Law Office Assistant for Chg Fwd Diagnoses Acute on chronic respiratory failure with hypoxia and hypercapnia J96.21; J96.22 SHERLEY (obstructive sleep apnea) G47.33 CHF (congestive heart failure) I50.33 Heart failure type: diastolic Heart failure chronicity: acute on chronic Diabetes mellitus, type II E11.65; Z79.4 Diabetes mellitus complication status: with hyperglycemia Diabetes mellitus alf insulin use: with watermelon harvesting supervisor use Hyperkalemia E87.5
[2022-03-20 11:49] LABS: Glucose Point of Care 230 mg/dL (70-110)
[2022-03-20] MEDS: FUROsemide 10 mg/mL SDV 4mL 80 MG IVP ×2 (12:28→23:12)
[2022-03-20 16:51] LABS: Glucose Point of Care 194 mg/dL (70-110)
[2022-03-20] MEDS: levofloxacin-dextrose 5 % 750 MG/150 ML PREMIX 100 MG IV (17:51)
[2022-03-20] MEDS: duloxetine 60 mg Capsule PO (20:30)
[2022-03-20] MEDS: vancomycin 1,500 MG/300 ML PIGGYBACK 200 MG IV (20:31)
[2022-03-20] MEDS: insulin glargine 100 units/1 mL 36 UNIT SUBCUT (20:32)
[2022-03-20 20:33] LABS: Glucose Point of Care 212 mg/dL (70-110)
[2022-03-20] MEDS: propofol 1,000 MG/100 ML INJ 32.17 MG IV (20:42)
[2022-03-21] VITALS (60 sets, daily range): BP systolic 72–155; BP diastolic 55–122; PULSE 74–121; RESP 13–28; TEMP 36.3–36.6; O2SAT 86–98
[2022-03-21] MEDS: propofol 1,000 MG/100 ML INJ 10.72 MG IV ×2 (00:32→06:51)
[2022-03-21] MEDS: ipratropium-albuterol 3 mL Neb INHALATION ×4 (03:33→20:04)
[2022-03-21 07:28] LABS: Glucose Point of Care 186 mg/dL (70-110)
--- NOTE | 2022-03-21 07:47 | XR_ITS ---
WS: [id number] XR chest 1V portable [id number] REASON FOR EXAM: ng tube placement FINDINGS: Endotracheal tube remains in proper position. The nasogastric tube has been placed, the tip is in position consistent with junction of the stomach Opacification left lower chest, pleural fluid and airspace consolidation, persists. XR/XR chest 1V portable [id number] IMPRESSION: ET tube and nasogastric tube in proper position. Persistence of left hemithorax abnormality.
[2022-03-21] MEDS: acetylcysteine 200 mg/mL SDV 4 mL INHALATION ×3 (08:04→20:04)
[2022-03-21] MEDS: budesonide 0.5 mg/2 mL Neb INHALATION ×2 (08:05→20:04)
[2022-03-21] MEDS: pantoprazole 40 mg SDV IVP (08:28)
[2022-03-21] MEDS: amiodarone 200 mg Tablet PO (08:28)
[2022-03-21] MEDS: spironolactone 25 mg Tablet PO (08:29)
[2022-03-21] MEDS: metoprolol tartrate 50 mg Tablet 100 MG PO ×2 (08:29→18:04)
[2022-03-21] MEDS: isosorbide mononitrate ER 30 mg Tablet 15 MG PO (08:29)
[2022-03-21] MEDS: apixaban 5 mg Tablet PO ×2 (08:30→18:04)
[2022-03-21] MEDS: insulin lispro 100 unit/1 mL SUBCUT ×4 (08:30→21:09)
[2022-03-21] MEDS: atorvastatin 40 mg Tablet 80 MG PO (08:33)
[2022-03-21] MEDS: insulin glargine 100 units/1 mL 32 UNIT SUBCUT (08:42)
--- NOTE | 2022-03-21 10:18 | PC.NURSE ---
This nurse entered room and noticed that levophed had infiltrated in left forearm area. Dr. Carranza was informed and told this nurse to call pharmacy. Pharmacist said to remove IV and apply warm compress.
[2022-03-21] MEDS: propofol 1,000 MG/100 ML INJ 32.17 MG IV (10:23)
[2022-03-21 11:05] LABS: Glucose Point of Care 212 mg/dL (70-110)
[2022-03-21] MEDS: FUROsemide 10 mg/mL SDV 4mL 80 MG IVP (11:05)
[2022-03-21] MEDS: dexmedeTOMIDine 0.9 % NaCL 400 MCG/100 ML PREMIX IV (11:08)
--- NOTE | 2022-03-21 12:14 | PC.CHAP ---
Pastoral Care Encounter/Spiritual Assessment Type of Contact [] Declined online advertising manager visit [] Patient/Family/Request visit [] Outpatient visit [] Follow-up visit [] Physician referral [] Code/Alert [x] Routine visit [] Staff referral [] Actively dying [] Patient sleeping [x] Family support [] [] Out of room [] Palliative care [] [] Receiving care in room [] Pre-surgical visit [] Trauma [] Long length of stay [x] ICU visit [x] Other: PT on vent... being eased off.. Relational/Emotional Strength [] Patient feels connected with others/family/visitors/staff [] Distress [] Loneliness/isolation [] Abandonment Spirituality of Patient [] Person of Ruchi [] Attends Baptist of their Ruchi [] Believes in Prayer [] Reads Bible or Druze materials [] There are Spiritual issues to be addressed Education Faculty Member 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 [x] Prayer [] Active listening [] Non-anxious presence [] Spiritual/emotional support [] Crisis/trauma care [] Spiritual counseling [] Bereavement support [] Provided bereavement packet [] Provided Bible/devotional materials [] Provided toy/stuffed animal, coloring book to patient or family member [] Provided Communion [] Anointing/[place] [] Salvation [x] Completed spiritual assessment [] Other: Impact on Illness or Injury [] Angry [] Fearful [] Anxious [] Often cries [] Exhaustion [] Unable to work [] Unable to attend pentecostal [] Unable to walk/stand [] Unable to read [] Unable to drive [] Unable to eat/drink [] Unable to sleep [] Unable to be with family [] Patient intubated [] Other: Summary Time spent with patient
--- NOTE | 2022-03-21 15:04 | PC.NURSE ---
Pt was extubated at 1500 to Bipap. Tolerated well
[2022-03-21] MEDS: vancomycin 1,500 MG/300 ML PIGGYBACK 200 MG IV (15:27)
--- NOTE | 2022-03-21 17:05 | PM.PN ---
Subjective Subjective: Patient was successfully extubated to BiPAP this evening. Blood culture yesterday returned positive 1 out of 4 fork GPC's in clusters, pending further identification. After extubation patient was extremely upset at having been intubated in the first place. It was explained to him that he was confused prior to intubation and the decision was made by discussion with his family to proceed with intubation. His advanced directives were reviewed from the previous admission which had not expressly stated to withhold mechanical ventilation. Patient is currently awake alert oriented and wishes to proceed with updating his advanced directives. Medications: Reviewed: Yes Vitals/I&O/Wt Last Vital Signs Temp 97.8 F 03/21/22 07:30 Pulse 104 H 03/21/22 15:06 Resp 21 H 03/21/22 14:15 BP 100/74 03/21/22 14:00 Pulse Ox 96 03/21/22 15:06 O2 Del Method 03/21/22 13:30 O2 Flow Rate 15 03/19/22 20:00 FiO2 40 03/21/22 15:06 03/21/22 03/21/22 03/21/22 06:59 14:59 22:59 Intake Total 103.668 / 1517.261 280.323 / 280.323 4.416 / 284.739 Output Total 1100 / 2600 Balance -996.332 / -1082.739 280.323 / 280.323 4.416 / 284.739 Physical Exam Narrative: General: extubated to Bipap, alert, awake and oriented x 3 HEENT: PERRLA, pupils bilaterally equal and reactive, pallors not present Chest: Normal vesicular breath sounds, no added sounds, equal good air entry bilaterally CVS: S1-S2 regular, no murmurs, no tachycardia, no gallops, no rubs. Abdomen: Soft, nontender, no organomegaly, bowel sounds present Neuro: alert awake and oriented x 3 EXT: 2+ pitting edema improving today Urinary Catheter Management: Lord: Cath Placed During This Visit: yes Reason for Continuing Indwelling Catheter: Accurate Measurement of Urinary Output in Critically Ill Patients Urinary Catheter Date of Insertion: 03/19/22 Urinary Catheter Time of Insertion: 14:28 Data 03/20/22 03:04 03/20/22 03:04 Micro: Microbiology 03/19/22 16:33 Blood Culture - Preliminary Blood GPC clusters 03/20/22 15:57 Gram Stain - Final Sputum - Endotracheal Tube Aspirate Sputum Culture - Preliminary Gram Negative Rods 03/19/22 16:33 Blood Culture - Preliminary Blood NEGATIVE TO DATE A&P Assessment and plan (1) Acute on chronic respiratory failure with hypoxia and hypercapnia: Patient presenting with acute on chronic respiratory failure with hypoxia and hypercapnia. Likely precipitated by inconsistent BiPAP use at home. Intubated for hypercapnic respiratory failure successfully extubated today to Bipap Likely that his symptoms are a combination of obesity hypoventilation, COPD exacerbation, volume overload with CHF. continue on Solu-Medrol 60 mg IV every 8 hours. Scheduled budesonide and DuoNeb inhalation. Added additional acetylcysteine inhalation to clear airway secretions. Lasix 80 mg IV every 12 hours. taper to 60mg iv q12h today Empiric antibiotic coverage with levofloxacin 750 mg daily in keeping with last sputum culture showing Stenotrophomonas maltophilia. Check sputum culture and gram stain- GNR Negative COVID and influenza PCR Continue Eliquis, low suspicion for PE given that patient is on chronic anticoagulation. Continue amiodarone. HR currently controlled Patient is now alert awake and oriented. He wishes to change his CODE STATUS to DNR/DNI. He is adamant never to be intubated again. He wants to update his advanced directives. New advanced directives have been entered in the system in the presence of his , director of casework and his nurse at bedside. He is DNR/DNI, no artificial life prolonging measures. (2) SHERLEY (obstructive sleep apnea): (3) CHF (congestive heart failure): Lasix as above Qualifiers: Heart failure chronicity: acute on chronic Heart failure type: diastolic Qualified Code(s): I50.33 - Acute on chronic diastolic (congestive) heart failure (4) Diabetes mellitus, type II: Insulin sliding scale Qualifiers: Diabetes mellitus complication status: with hyperglycemia Diabetes mellitus intermediate card tender insulin use: with residential use Qualified Code(s): E11.65 - Type 2 diabetes mellitus with hyperglycemia; Z79.4 - assisted (current) use of insulin (5) Hyperkalemia: Plan Hold antihypertensives as soft blood pressure. Imdur discontinued. Spironolactone discontinued. CODE STATUS: DNR/DNI DVT prophylaxis: Currently on anticoagulation with Eliquis Attestations Medical Necessity Statement*: Extubated to BiPAP today, tenuous respiratory status, monitor closely in the ICU tonight. Critical Care Time: The high probability of a clinically significant, sudden or life threatening deterioration of the patient's [respiratory] system(s) required my full and direct attention, intervention and personal management. The critical care time is as shown. This time is in addition to time spent performing any reported procedures but includes the following: [x] Data and vital sign review and interpretation [x] Patient assessment, examination and intervention [x] Documentation [x] Medication orders and management Coding Level of Care Code Acute Board Mixer Tender for Chg Fwd Diagnoses Acute on chronic respiratory failure with hypoxia and hypercapnia J96.21; J96.22 SHERLEY (obstructive sleep apnea) G47.33 CHF (congestive heart failure) I50.33 Heart failure chronicity: acute on chronic Heart failure type: diastolic Diabetes mellitus, type II E11.65; Z79.4 Diabetes mellitus complication status: with hyperglycemia Diabetes mellitus residential insulin use: with intermediate card tender use Hyperkalemia E87.5
[2022-03-21 18:03] LABS: Glucose Point of Care 205 mg/dL (70-110)
[2022-03-21] MEDS: levofloxacin-dextrose 5 % 750 MG/150 ML PREMIX 100 MG IV (18:04)
[2022-03-21] MEDS: insulin glargine 100 units/1 mL 36 UNIT SUBCUT (20:03)
[2022-03-21] MEDS: duloxetine 60 mg Capsule PO (20:56)
[2022-03-21 21:11] LABS: Glucose Point of Care 195 mg/dL (70-110)
[2022-03-21] MEDS: FUROsemide 10 mg/mL SDV 4mL 60 MG IVP (23:18)
[2022-03-22] VITALS (51 sets, daily range): BP systolic 81–156; BP diastolic 49–128; PULSE 86–135; RESP 17–26; TEMP 36.7–37.2; O2SAT 87–97
[2022-03-22 02:54] LABS: Basophils % 0.1 %; Hematocrit 31.8 % (42.0-52.0); Hemoglobin 9.7 g/dL (11.7-16.6); Lymphocytes # 0.7 10^3/uL (0.8-4.8); Lymphocytes % 5.1 %; Mean Corpuscular HGB Conc 30.5 g/dL (30.0-36.0); Mean Corpuscular Hemoglobin 28.6 pg (28.0-34.0); Mean Corpuscular Volume 93.8 fl (80-94); Monocytes # 0.6 10^3/uL (0.2-0.9); Neutrophils # 12.35 10^3/uL (1.8-7.7); Neutrophils % 90.2 %; Nucleated Red Blood Cells % 0 %; Platelet Count 219 10^3/cmm (130-400); Red Blood Count 3.39 10^6/uL (4.1-5.3); Red Cell Distribution Width 15.2 % (12.1-15.1); White Blood Count 13.7 10^3/uL (4.0-10.0)
[2022-03-22] MEDS: acetylcysteine 200 mg/mL SDV 4 mL INHALATION ×2 (02:55→08:09)
[2022-03-22] MEDS: ipratropium-albuterol 3 mL Neb INHALATION ×4 (02:55→20:16)
[2022-03-22 03:11] LABS: Alanine Aminotransferase 10 U/L (0-41); Albumin Level 3.2 g/dL (3.5-5.2); Alkaline Phosphatase 58 U/L (40-130); Anion Gap 15.9 (5-19); Aspartate Amino Transferase 21 U/L (0-40); Blood Urea Nitrogen 48 mg/dL (8-23); Calcium 9.4 mg/dL (8.5-10.5); Carbon Dioxide 36 mmol/L (22-29); Chloride 91 mmol/L (98-107); Globulin 3.2 g/dL (1.3-4.6); Glomerular Filtration Rate 27.6 mL/min (90-130); Glucose 121 mg/dL (65-115); Osmolality Calculated 302 mOsm/kg (285-295); Potassium 3.9 mmol/L (3.5-5.1); Sodium 139 mmol/L (136-145); Total Bilirubin 0.2 mg/dL (0.15-1.2); Total Protein 6.4 g/dL (6.6-8.7)
[2022-03-22] MEDS: atorvastatin 40 mg Tablet 80 MG PO (05:00)
--- NOTE | 2022-03-22 06:50 | PC.NURSE ---
Patient rested well through the night. Remained on Bipap 40% with sp02 in the mid 90s. No pain meds required. 2 large loose bowel movements and 1700ml out in urine. Shift Report given to Taya Martins RN.
[2022-03-22 08:07] LABS: Glucose Point of Care 163 mg/dL (70-110)
[2022-03-22] MEDS: pantoprazole 40 mg SDV IVP (08:09)
[2022-03-22] MEDS: budesonide 0.5 mg/2 mL Neb INHALATION ×2 (08:09→20:16)
[2022-03-22] MEDS: amiodarone 200 mg Tablet PO (08:10)
[2022-03-22] MEDS: vancomycin 1,500 MG/300 ML PIGGYBACK 200 MG IV (08:10)
[2022-03-22] MEDS: apixaban 5 mg Tablet PO ×2 (08:10→17:08)
[2022-03-22] MEDS: metoprolol tartrate 50 mg Tablet 100 MG PO ×2 (08:10→17:08)
[2022-03-22] MEDS: insulin glargine 100 units/1 mL 32 UNIT SUBCUT (08:11)
[2022-03-22] MEDS: insulin lispro 100 unit/1 mL SUBCUT ×4 (08:12→21:47)
--- NOTE | 2022-03-22 10:39 | PM.PN ---
Subjective Subjective: Renal function worsening today with creatinine up to 2.4. Patient has been transitioned from BiPAP to nasal cannula at 6 L/min. At home he typically wears 5 L/min. Tachycardic with heart rate ranging between 90-1 20. He is pretty upset and wants to go home. Updated about his test results with worsening creatinine in the recommendation that he stay in the hospital. Additionally reports that his BiPAP and oxygen concentrator are not working at home. Counseled that at a minimum he would need functional equipment to be able to transition home safely. Medications: Reviewed: Yes Vitals/I&O/Wt Last Vital Signs Temp 98.1 F 03/22/22 08:30 Pulse 103 H 03/22/22 10:00 Resp 26 H 03/22/22 08:05 BP 129/103 03/22/22 10:00 Pulse Ox 92 03/22/22 10:00 O2 Del Method 03/22/22 08:05 O2 Flow Rate 15 03/19/22 20:00 FiO2 40 03/22/22 08:05 03/21/22 03/22/22 03/22/22 22:59 06:59 14:59 Intake Total 638.056 / 918.379 50 / 968.379 Output Total 1300 / 1300 700 / 2000 Balance -661.944 / -381.621 -650 / -1031.621 Physical Exam Narrative: General: Alert awake oriented, upset at being in the hospital HEENT: PERRLA, pupils bilaterally equal and reactive, pallors not present Chest: Normal vesicular breath sounds, no added sounds, equal good air entry bilaterally CVS: S1-S2 regular, no murmurs, no tachycardia, no gallops, no rubs. Abdomen: Soft, nontender, no organomegaly, bowel sounds present Neuro: alert awake and oriented x 3 EXT: Improving anasarca. Resolved lower extremity edema. Urinary Catheter Management: Lord: Cath Placed During This Visit: yes Reason for Continuing Indwelling Catheter: Accurate Measurement of Urinary Output in Critically Ill Patients Urinary Catheter Date of Insertion: 03/19/22 Urinary Catheter Time of Insertion: 14:28 Data 03/22/22 02:40 03/22/22 02:40 Micro: Microbiology 03/19/22 16:33 Blood Culture - Preliminary Blood Staphylococcus sp coag neg 03/20/22 15:57 Gram Stain - Final Sputum - Endotracheal Tube Aspirate Sputum Culture - Preliminary Gram Negative Rods A&P Assessment and plan (1) Acute on chronic respiratory failure with hypoxia and hypercapnia: Patient presenting with acute on chronic respiratory failure with hypoxia and hypercapnia. Likely precipitated by inconsistent BiPAP use at home. reports that BiPAP machine is not working correctly at home. She has tried to have the [employer] company troubleshoot the machine several times but does not appear to be working. We will have case management work with the DME provider so the patient has functional equipment for when he transitions to home. Intubated for hypercapnic respiratory failure on day of admission, high risk extubation performed on March 21, 2022. Patient currently transitioned down from BiPAP to supplemental O2 at 5 L/min. Currently tolerating this except for tachycardia. Likely that his symptoms are a combination of obesity hypoventilation, COPD exacerbation, volume overload with CHF. Taper steroid down to prednisone 40 mg p.o. daily. Scheduled budesonide and DuoNeb inhalation. Added additional acetylcysteine inhalation to clear airway secretions. Patient has persisting left lower lobe infiltrates from his previous admission. Suspect that these may be radiological lag. However his sputum culture is still trending up positive for gram-negative rods, suspect that this will be stenotrophomonas as on previous admissions. We will continue him on levofloxacin, will likely need a prolonged course given chronicity of symptoms. Anticipate at least a month for now. He scheduled to see pulmonology in May. Taper Lasix down to 20 mg IV every 12 hours, worsening renal function. Blood culture showing 1 out of 2 with coag negative staph, suspect this is a contaminant. Discontinue IV vancomycin. Check sputum culture and gram stain- GNR pending final identification. Negative COVID and influenza PCR Continue Eliquis, low suspicion for PE given that patient is on chronic anticoagulation. Continue amiodarone. HR currently ranging between 90-100, especially when he is agitated. Suspect that this is in part related to patient being upset and agitated. We will add some anxiolytics for now. PT OT eval. Will need assessment of patient's functional status and stability prior to safe discharge to home. Patient was attempted to be placed at multiple assisted facilities on last visit due to his overall deconditioning, however was declined. He did eventually go out to [facility], however states he was discharged 4 days later with no therapy and did not have a BiPAP machine there.. He would not wish to return to the same facility again. CODE STATUS DNR/DNI (2) SHERLEY (obstructive sleep apnea): (3) CHF (congestive heart failure): Lasix as above Qualifiers: Heart failure type: diastolic Heart failure chronicity: acute on chronic Qualified Code(s): I50.33 - Acute on chronic diastolic (congestive) heart failure (4) Diabetes mellitus, type II: Insulin sliding scale Qualifiers: Diabetes mellitus complication status: with hyperglycemia Diabetes mellitus intermodal customer service insulin use: with intermodal customer service use Qualified Code(s): E11.65 - Type 2 diabetes mellitus with hyperglycemia; Z79.4 - custodial (current) use of insulin (5) Hyperkalemia: (6) JAMES (acute kidney injury): JAMES on CKD reduce iv lasix dose as noted above Plan Hold antihypertensives as soft blood pressure. Imdur discontinued. Spironolactone discontinued. Blood pressure is much better controlled after discontinuing these medicines. Hyperkalemia additionally resolved today. CODE STATUS: DNR/DNI DVT prophylaxis: Currently on anticoagulation with Eliquis Attestations Medical Necessity Statement*: respiratory failure, needs close monitoring, PT/OT assessment, equipment pending for safe discharge to home Coding Level of Care Code Acute Technician Submarine Cable Equipment for Chg Fwd Diagnoses Acute on chronic respiratory failure with hypoxia and hypercapnia J96.21; J96.22 SHERLEY (obstructive sleep apnea) G47.33 CHF (congestive heart failure) I50.33 Heart failure type: diastolic Heart failure chronicity: acute on chronic Diabetes mellitus, type II E11.65; Z79.4 Diabetes mellitus complication status: with hyperglycemia Diabetes mellitus intermodal customer service insulin use: with intermodal customer service use Hyperkalemia E87.5 JAMES (acute kidney injury) N17.9
[2022-03-22 11:25] LABS: Glucose Point of Care 165 mg/dL (70-110)
[2022-03-22] MEDS: FUROsemide 10 mg/mL SDV 4mL 20 MG IVP ×2 (11:29→23:33)
--- NOTE | 2022-03-22 11:36 | PC.CHAP ---
Pastoral Care Encounter/Spiritual Assessment Type of Contact [] Declined mechanic helper visit [] Patient/Family/Request visit [] Outpatient visit [] Follow-up visit [] Physician referral [] Code/Alert [x] Routine visit [] Staff referral [] Actively dying [] Patient sleeping [x] Family support [] [] Out of room [] Palliative care [] [] Receiving care in room [] Pre-surgical visit [] Trauma [] Long length of stay [x] ICU visit [x] Other: vent removed.. PT rather loud... doctor visited Relational/Emotional Strength [] Patient feels connected with others/family/visitors/staff [] Distress [] Loneliness/isolation [] Abandonment Spirituality of Patient [] Person of Ruchi [] Attends Sikh of their Ruchi [] Believes in Prayer [] Reads Bible or Yazidism materials [] There are Spiritual issues to be addressed Credit Charge Authorizer 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 [x] Prayer [] Active listening [] Non-anxious presence [] Spiritual/emotional support [] Crisis/trauma care [] Spiritual counseling [] Bereavement support [] Provided bereavement packet [] Provided Bible/devotional materials [] Provided toy/stuffed animal, coloring book to patient or family member [] Provided Communion [] Anointing/Lucernemines [] Salvation [x] Completed spiritual assessment [] Other: Impact on Illness or Injury [] Angry [] Fearful [] Anxious [] Often cries [] Exhaustion [] Unable to work [] Unable to attend samaritan [] Unable to walk/stand [] Unable to read [] Unable to drive [] Unable to eat/drink [] Unable to sleep [] Unable to be with family [] Patient intubated [] Other: Summary Time spent with patient
--- NOTE | 2022-03-22 11:50 | PC.NURSE ---
Pt switched to 6L NC. This nurse transferred patient to chair using stand by assist while pt used a walker. Tolerated well but he did become short of breath.
--- NOTE | 2022-03-22 13:07 | PC.SOCIAL ---
Pg 2 IMM Explained to pt Pg 2 IMM. No questions voiced. Provided pt a copy. Initialed, dated, & timed a copy & placed in chart.
[2022-03-22 17:06] LABS: Glucose Point of Care 184 mg/dL (70-110)
[2022-03-22] MEDS: levofloxacin-dextrose 5 % 750 MG/150 ML PREMIX 100 MG IV (18:43)
[2022-03-22] MEDS: duloxetine 60 mg Capsule PO (21:15)
[2022-03-22] MEDS: insulin glargine 100 units/1 mL 36 UNIT SUBCUT (21:16)
[2022-03-22 21:22] LABS: Glucose Point of Care 265 mg/dL (70-110)
[2022-03-23] VITALS (43 sets, daily range): BP systolic 79–138; BP diastolic 50–100; PULSE 87–131; RESP 16–31; TEMP 36.3–36.8; O2SAT 78–99
[2022-03-23] MEDS: ipratropium-albuterol 3 mL Neb INHALATION ×4 (03:20→21:05)
[2022-03-23] MEDS: atorvastatin 40 mg Tablet 80 MG PO (06:32)
[2022-03-23 07:22] LABS: Basophils % 0.1 %; Hematocrit 33.2 % (42.0-52.0); Hemoglobin 9.9 g/dL (11.7-16.6); Lymphocytes # 1.4 10^3/uL (0.8-4.8); Lymphocytes % 11.8 %; Mean Corpuscular HGB Conc 29.8 g/dL (30.0-36.0); Mean Corpuscular Hemoglobin 28.7 pg (28.0-34.0); Mean Corpuscular Volume 96.2 fl (80-94); Mean Platelet Volume 12.3 fL (7.4-10.4); Monocytes # 1.3 10^3/uL (0.2-0.9); Monocytes % 11.5 %; Neutrophils # 8.89 10^3/uL (1.8-7.7); Neutrophils % 76.2 %; Nucleated Red Blood Cells % 0 %; Platelet Count 207 10^3/cmm (130-400); Red Blood Count 3.45 10^6/uL (4.1-5.3); Red Cell Distribution Width 15.5 % (12.1-15.1); White Blood Count 11.7 10^3/uL (4.0-10.0)
[2022-03-23 07:41] LABS: Alanine Aminotransferase 11 U/L (0-41); Alkaline Phosphatase 58 U/L (40-130); Anion Gap 17.4 (5-19); Aspartate Amino Transferase 21 U/L (0-40); Blood Urea Nitrogen 69 mg/dL (8-23); Calcium 8.7 mg/dL (8.5-10.5); Carbon Dioxide 35 mmol/L (22-29); Chloride 91 mmol/L (98-107); Globulin 2.9 g/dL (1.3-4.6); Glomerular Filtration Rate 17.8 mL/min (90-130); Glucose 107 mg/dL (65-115); Osmolality Calculated 311 mOsm/kg (285-295); Potassium 3.4 mmol/L (3.5-5.1); Sodium 140 mmol/L (136-145); Total Bilirubin 0.2 mg/dL (0.15-1.2); Total Protein 5.9 g/dL (6.6-8.7)
[2022-03-23] MEDS: budesonide 0.5 mg/2 mL Neb INHALATION ×2 (08:43→21:05)
[2022-03-23] MEDS: apixaban 5 mg Tablet PO ×2 (09:04→17:49)
[2022-03-23] MEDS: amiodarone 200 mg Tablet PO (09:04)
[2022-03-23] MEDS: predniSONE 20 mg Tablet 40 MG PO (09:04)
[2022-03-23] MEDS: metoprolol tartrate 50 mg Tablet 100 MG PO ×2 (09:04→17:49)
[2022-03-23] MEDS: ALPRAZolam 0.5 mg Tablet PO (09:05)
[2022-03-23] MEDS: pantoprazole 40 mg SDV IVP (09:05)
[2022-03-23 11:02] LABS: Glucose Point of Care 189 mg/dL (70-110)
[2022-03-23] MEDS: insulin glargine 100 units/1 mL 32 UNIT SUBCUT (11:02)
--- NOTE | 2022-03-23 12:41 | PC.CHAP ---
Pastoral Care Encounter/Spiritual Assessment Type of Contact [] Declined poultry cutter visit [] Patient/Family/Request visit [] Outpatient visit [] Follow-up visit [] Physician referral [] Code/Alert [x] Routine visit [] Staff referral [] Actively dying [] Patient sleeping [x] Family support [] [] Out of room [] Palliative care [] [] Receiving care in room [] Pre-surgical visit [] Trauma [] Long length of stay [x] ICU visit [x] Other: Relational/Emotional Strength [] Patient feels connected with others/family/visitors/staff [] Distress [] Loneliness/isolation [] Abandonment Spirituality of Patient [] Person of Ruchi [] Attends Hoahaoism of their Ruchi [] Believes in Prayer [] Reads Bible or Anabaptist materials [] There are Spiritual issues to be addressed Health Educator 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 [x] Prayer [] Active listening [] Non-anxious presence [] Spiritual/emotional support [] Crisis/trauma care [] Spiritual counseling [] Bereavement support [] Provided bereavement packet [] Provided Bible/devotional materials [] Provided toy/stuffed animal, coloring book to patient or family member [] Provided Communion [] Anointing/Petty [] Salvation [x] Completed spiritual assessment [] Other: Impact on Illness or Injury [] Angry [] Fearful [] Anxious [] Often cries [] Exhaustion [] Unable to work [] Unable to attend amish [] Unable to walk/stand [] Unable to read [] Unable to drive [] Unable to eat/drink [] Unable to sleep [] Unable to be with family [] Patient intubated [] Other: Summary Time spent with patient
[2022-03-23 13:23] LABS: Glucose Point of Care 209 mg/dL (70-110)
[2022-03-23] MEDS: insulin lispro 100 unit/1 mL SUBCUT ×2 (13:28→17:49)
--- NOTE | 2022-03-23 16:31 | PM.PN ---
Subjective Subjective: Patient's breathing is much improved but his creatinine is trending up to 3.5 today. He remains on 6 L/min supplemental O2. Medications: Reviewed: Yes Vitals/I&O/Wt Last Vital Signs Temp 97.4 F L 03/23/22 08:00 Pulse 116 H 03/23/22 14:04 Resp 20 H 03/23/22 14:00 BP 117/63 03/23/22 14:00 Pulse Ox 93 03/23/22 14:00 O2 Del Method 03/23/22 14:00 O2 Flow Rate 6 03/23/22 14:00 FiO2 40 03/23/22 03:23 03/23/22 03/23/22 03/23/22 06:59 14:59 22:59 Intake Total 150 / 1270 158.016 / 158.016 Output Total 150 / 700 Balance 0 / 570 158.016 / 158.016 Physical Exam Narrative: General: Alert awake oriented x 3 HEENT: PERRLA, pupils bilaterally equal and reactive, pallors not present Chest: Normal vesicular breath sounds, no added sounds, equal good air entry bilaterally CVS: S1-S2 regular, no murmurs, no tachycardia, no gallops, no rubs. Abdomen: Soft, nontender, no organomegaly, bowel sounds present Neuro: alert awake and oriented x 3 EXT: Improving anasarca. Resolved lower extremity edema. Urinary Catheter Management: Lord: Cath Placed During This Visit: yes Reason for Continuing Indwelling Catheter: Accurate Measurement of Urinary Output in Critically Ill Patients Urinary Catheter Date of Insertion: 03/19/22 Urinary Catheter Time of Insertion: 14:28 Data 03/23/22 06:41 03/23/22 06:41 Micro: Microbiology 03/20/22 15:57 Gram Stain - Final Sputum - Endotracheal Tube Aspirate Sputum Culture - Final Stenotrophomonas maltophilia A&P Assessment and plan (1) Acute on chronic respiratory failure with hypoxia and hypercapnia: Patient presenting with acute on chronic respiratory failure with hypoxia and hypercapnia. Likely precipitated by inconsistent BiPAP use at home. reports that BiPAP machine is not working correctly at home. She has tried to have the [employer] company troubleshoot the machine several times but does not appear to be working. We will have case management work with the DME provider so the patient has functional equipment for when he transitions to home. Intubated for hypercapnic respiratory failure on day of admission, high risk extubation performed on March 21, 2022. Patient currently transitioned down from BiPAP to supplemental O2 at 6 L/min. Currently tolerating this except for tachycardia. Likely that his symptoms are a combination of obesity hypoventilation, COPD exacerbation, volume overload with CHF. steroid down to prednisone 40 mg p.o. daily. Scheduled budesonide and DuoNeb inhalation. Added additional acetylcysteine inhalation to clear airway secretions. Patient has persisting left lower lobe infiltrates from his previous admission. Suspect that these may be radiological lag. However his sputum culture is still positive for gram-negative rods, identified as stenotrophomonas as on previous admissions. We will continue him on levofloxacin, will likely need a prolonged course given chronicity of symptoms. Anticipate at least a month for now. He scheduled to see pulmonology in May. HOLD Lasix given worsening renal function. Negative COVID and influenza PCR JAMES now with worsening creatinine, up to 3.5, likely related to lasox, hypotension PT OT eval. Will need assessment of patient's functional status and stability prior to safe discharge to home. Patient was attempted to be placed at multiple correction facilities on last visit due to his overall deconditioning, however was declined. He did eventually go out to [facility] bed, however states he was discharged 4 days later with no therapy and did not have a BiPAP machine there.. He would not wish to return to the same facility again. CODE STATUS DNR/DNI (2) SHERLEY (obstructive sleep apnea): (3) CHF (congestive heart failure): Lasix as above Qualifiers: Heart failure type: diastolic Heart failure chronicity: acute on chronic Qualified Code(s): I50.33 - Acute on chronic diastolic (congestive) heart failure (4) Diabetes mellitus, type II: Insulin sliding scale Qualifiers: Diabetes mellitus complication status: with hyperglycemia Diabetes mellitus tank terminal gauger insulin use: with tank terminal gauger use Qualified Code(s): E11.65 - Type 2 diabetes mellitus with hyperglycemia; Z79.4 - alf (current) use of insulin (5) Hyperkalemia: (6) JAMES (acute kidney injury): JAMES on CKD reduce iv lasix dose as noted above Plan Hold antihypertensives as soft blood pressure. Imdur discontinued. Spironolactone discontinued. Blood pressure is much better controlled after discontinuing these medicines. Hyperkalemia additionally resolved . CODE STATUS: DNR/DNI DVT prophylaxis: Currently on anticoagulation with Eliquis Attestations Medical Necessity Statement*: worsening kidney function, awaiting nephrology consult Coding Level of Care Code Acute Flower Arranger for Chg Fwd Diagnoses Acute on chronic respiratory failure with hypoxia and hypercapnia J96.21; J96.22 SHERLEY (obstructive sleep apnea) G47.33 CHF (congestive heart failure) I50.33 Heart failure type: diastolic Heart failure chronicity: acute on chronic Diabetes mellitus, type II E11.65; Z79.4 Diabetes mellitus complication status: with hyperglycemia Diabetes mellitus correction insulin use: with tank terminal gauger use Hyperkalemia E87.5 JAMES (acute kidney injury) N17.9
[2022-03-23 17:16] LABS: Glucose Point of Care 166 mg/dL (70-110)
[2022-03-23] MEDS: levofloxacin-dextrose 5 % 750 MG/150 ML PREMIX 100 MG IV (18:33)
[2022-03-23] MEDS: insulin glargine 100 units/1 mL 36 UNIT SUBCUT (20:39)
[2022-03-23] MEDS: sodium chloride 0.9% 500 ML 999 ML IV (21:17)
[2022-03-23] MEDS: duloxetine 60 mg Capsule PO (21:17)
[2022-03-23 21:44] LABS: Glucose Point of Care 132 mg/dL (70-110)
[2022-03-24] VITALS (16 sets, daily range): BP systolic 86–112; BP diastolic 54–67; PULSE 71–105; RESP 15–21; TEMP 36.4–37.3; O2SAT 93–98
[2022-03-24] MEDS: ipratropium-albuterol 3 mL Neb INHALATION ×4 (02:04→21:32)
[2022-03-24] MEDS: atorvastatin 40 mg Tablet 80 MG PO (05:28)
[2022-03-24 05:36] LABS: Basophils % 0.1 %; Eosinophils % 0.1 %; Hematocrit 33.2 % (42.0-52.0); Hemoglobin 9.7 g/dL (11.7-16.6); Lymphocytes # 1.6 10^3/uL (0.8-4.8); Lymphocytes % 13.7 %; Mean Corpuscular HGB Conc 29.2 g/dL (30.0-36.0); Mean Corpuscular Hemoglobin 28.6 pg (28.0-34.0); Mean Corpuscular Volume 97.9 fl (80-94); Mean Platelet Volume 11.9 fL (7.4-10.4); Monocytes # 1.1 10^3/uL (0.2-0.9); Monocytes % 9.7 %; Neutrophils # 8.93 10^3/uL (1.8-7.7); Neutrophils % 75.7 %; Nucleated Red Blood Cells % 0 %; Platelet Count 193 10^3/cmm (130-400); Red Blood Count 3.39 10^6/uL (4.1-5.3); Red Cell Distribution Width 15.4 % (12.1-15.1); White Blood Count 11.8 10^3/uL (4.0-10.0)
[2022-03-24 05:56] LABS: Alanine Aminotransferase 15 U/L (0-41); Albumin Level 2.8 g/dL (3.5-5.2); Alkaline Phosphatase 56 U/L (40-130); Anion Gap 18.7 (5-19); Aspartate Amino Transferase 22 U/L (0-40); Calcium 8.4 mg/dL (8.5-10.5); Carbon Dioxide 33 mmol/L (22-29); Chloride 92 mmol/L (98-107); Globulin 3.3 g/dL (1.3-4.6); Glomerular Filtration Rate 13.3 mL/min (90-130); Glucose 135 mg/dL (65-115); Osmolality Calculated 318 mOsm/kg (285-295); Potassium 3.7 mmol/L (3.5-5.1); Sodium 140 mmol/L (136-145); Total Bilirubin 0.2 mg/dL (0.15-1.2); Total Protein 6.1 g/dL (6.6-8.7)
[2022-03-24 06:07] LABS: Blood Urea Nitrogen 84 mg/dL (8-23)
[2022-03-24 06:42] LABS: Glucose Point of Care 147 mg/dL (70-110)
[2022-03-24] MEDS: budesonide 0.5 mg/2 mL Neb INHALATION ×2 (07:33→21:32)
[2022-03-24] MEDS: predniSONE 20 mg Tablet 40 MG PO (09:54)
[2022-03-24] MEDS: metoprolol tartrate 50 mg Tablet 100 MG PO ×2 (09:54→17:54)
[2022-03-24] MEDS: apixaban 5 mg Tablet PO ×2 (09:54→17:54)
[2022-03-24] MEDS: amiodarone 200 mg Tablet PO (09:55)
[2022-03-24] MEDS: insulin glargine 100 units/1 mL 32 UNIT SUBCUT (09:56)
[2022-03-24] MEDS: insulin lispro 100 unit/1 mL SUBCUT ×4 (09:56→21:25)
[2022-03-24] MEDS: pantoprazole 40 mg SDV IVP (09:57)
--- NOTE | 2022-03-24 10:01 | P.CONIM_ITS ---
Providers/Reason For Consult Consulting Physician/Specialty*: nephrology Reason for Consult*: Acute on CKD Attending Physician: Nany Carranza MD Primary Care Provider: Mason Giles MD History of Present Illness History of Present Illness Wayne Nicholson is a 61 year old male with past medical history of morbid obesity, atrial fibrillation, diastolic CHF, COPD, type 2 diabetes, obstructive sleep apnea, was recently admitted with prolonged hospital course for acute on chronic respiratory failure and was discharged. He presented back to the hospital complaining of worsening shortness of breath and initially was noted to have hypercapnic respiratory failure. He was tachycardic and hypertensive on initial presentation. Cr on presentation was 1.5 worsened to 4.5 currently. Patient also became oliguric He has not seeing Nephrology as out pt Medications/Allergies Home Medications Medication Instructions Recorded Confirmed Last Taken Type multivitamin 1 tab PO DAILY 05/15/19 03/19/22 03/19/22 History concentrator and homefill oxygen #1 ea 09/30/20 03/19/22 Unknown Rx system blood sugar diagnostic #100 ea 03/10/21 03/19/22 Unknown Rx pen needle, diabetic 29 gauge x #100 ea 03/10/21 03/19/22 Unknown Rx 1/2 (Comfort EZ Pen [place]) blood-glucose meter (OneTouch #1 ea 03/14/21 03/19/22 Unknown Rx Ultra2 Meter kit) lancets (OneTouch UltraSoft #100 ea 03/14/21 03/19/22 Unknown Rx Lancets) metformin 1,000 mg tablet 1,000 mg PO BID #180 tabs 04/18/21 03/19/22 03/19/22 Rx blood-glucose meter,continuous #1 ea 06/07/21 03/19/22 Unknown Rx (Dexcom G6 Lsw misc) blood-glucose sensor (Dexcom G6 #3 ea 06/07/21 03/19/22 Unknown Rx Sensor device) blood-glucose transmitter (Dexcom #1 ea 06/07/21 03/19/22 Unknown Rx G6 Transmitter device) apixaban 5 mg tablet (Eliquis) 5 mg PO BID #180 tabs 10/27/21 03/19/22 03/19/22 Rx albuterol sulfate 90 mcg/actuation 2 puff inhalation Q6H PRN 12/02/21 03/19/22 01/30/22 History aerosol inhaler (ProAir HFA) Shortness Of Breath atorvastatin 80 mg tablet 80 mg PO QAM 12/02/21 03/19/22 03/19/22 History cholecalciferol (vitamin D3) 50 100 mcg PO DAILY 12/02/21 03/19/22 03/19/22 History mcg (2,000 unit) tablet (Vitamin D3) albuterol sulfate 2.5 mg/3 mL 2.5 mg (3 mL) inhalation QID PRN 12/05/21 03/19/22 Unknown Rx (0.083 %) solution for nebulization shortness of breath or wheezing #75 mL ascorbic acid (vitamin C) 500 mg 500 mg PO DAILY 01/30/22 03/19/22 03/19/22 History tablet,extended release (Vitamin C ER) cyanocobalamin (vitamin B-12) 100 100 mcg PO DAILY 01/30/22 03/19/22 03/19/22 History mcg tablet (Vitamin B-12) duloxetine 60 mg capsule,delayed 60 mg PO BEDTIME 01/30/22 03/19/22 03/18/22 History release acetylcysteine 200 mg/mL (20 %) 100 mg (0.5 mL) inhalation 02/22/22 03/19/22 Unknown Rx solution Q4H.RESPIRATORY PRN Shortness Of Breath #30 mL amiodarone 200 mg tablet (Pacerone) 200 mg PO DAILY #30 tabs 02/22/22 03/19/22 03/19/22 Rx ferrous gluconate 324 mg (37.5 mg 324 mg PO BIDWM #60 tabs 02/22/22 03/19/22 03/17/22 Rx iron) tablet fluticasone fur. 200 mcg-umeclid 1 inh inhalation DAILY 03/19/22 03/19/22 03/19/22 History 62.5 mcg-vilant 25 mcg inhalat.powder (Trelegy Ellipta) furosemide 40 mg tablet (Lasix) 40 mg PO QAM 03/19/22 03/19/22 03/19/22 History insulin glargine U-300 conc 300 See Rx Instructions .Route .COMPLEX 03/19/22 03/19/22 03/19/22 History unit/mL (3 mL) subcutaneous pen (Toujeo Max U-300 SoloStar) isosorbide mononitrate 30 mg 15 mg PO DAILY 03/19/22 03/19/22 03/19/22 History tablet,extended release 24 hr lisinopril 10 mg tablet 10 mg PO DAILY 03/19/22 03/19/22 03/19/22 History potassium chloride 20 mEq 10 meq PO BEDTIME 03/19/22 03/19/22 03/18/22 History tablet,extended release spironolactone 25 mg tablet 25 mg PO DAILY 03/19/22 03/19/22 03/19/22 History metoprolol tartrate 100 mg tablet 100 mg PO BID #60 tabs 03/20/22 Unknown Rx Allergies Allergy/AdvReac Type Severity Reaction Status Date / Time No Known Allergies Allergy Verified 01/30/22 12:57 Current Medications Generic Name Dose Route Start Last Admin Trade Name Freq PRN Reason Stop Dose Admin Acetylcysteine 200 mg 03/19/22 20:00 03/24/22 02:04 Acetylcysteine 200 Mg/Ml Sdv 4 Ml INHALATION Not Given Q6H.RESP SOLOMON Albuterol/Ipratropium 3 ml 03/19/22 20:00 03/24/22 07:33 Ipratropium-Albuterol 3 Ml Neb INHALATION 3 ml Q6H SOLOMON Administration Alprazolam 0.5 mg 03/22/22 10:49 03/23/22 09:05 Alprazolam 0.5 Mg Tablet PO 0.5 mg BID PRN Administration ANXIETY Amiodarone HCl 200 mg 03/20/22 09:00 03/23/22 09:04 Amiodarone 200 Mg Tablet PO 200 mg DAILY SOLOMON Administration Apixaban 5 mg 03/19/22 18:00 03/23/22 17:49 Apixaban 5 Mg Tablet PO 5 mg BID SOLOMON Administration Atorvastatin Calcium 80 mg 03/20/22 06:00 03/24/22 05:28 Atorvastatin 40 Mg Tablet PO 80 mg QAM SOLOMON Administration Budesonide 0.5 mg 03/19/22 20:00 03/24/22 07:33 Budesonide 0.5 Mg/2 Ml Neb INHALATION 0.5 mg BID.RESPIRATORY SOLOMON Administration Duloxetine HCl 60 mg 03/19/22 21:00 03/23/22 21:17 Duloxetine 60 Mg Capsule PO 60 mg BEDTIME SOLOMON Administration Furosemide 20 mg 03/22/22 11:00 03/22/22 23:33 Furosemide 10 Mg/Ml Sdv 4ml IVP 20 mg Q12H SOLOMON Administration Dexmedetomidine/Sodium Chloride 400 mcg in 100 mls @ 0 mls/hr 03/19/22 18:15 03/23/22 10:52 Precedex IV Infused .Q0M SOLOMON Titration Protocol Per Protocol Propofol 1,000 mg in 100 mls @ 0 mls/hr 03/19/22 20:15 03/21/22 19:00 Diprivan IV Infused .Q0M SOLOMON Titration Protocol Per Protocol Insulin Glargine 36 unit 03/19/22 20:00 03/23/22 20:39 Insulin Glargine 100 Units/1 Ml SUBCUT 36 unit 2000 SOLOMON Administration Insulin Glargine 32 unit 03/20/22 08:00 03/23/22 11:02 Insulin Glargine 100 Units/1 Ml SUBCUT 32 unit 0800 SOLOMON Administration Insulin Human Lispro 0 unit 03/19/22 18:29 03/23/22 22:03 Insulin Lispro 100 Unit/1 Ml SUBCUT Not Given WM&BEDTIME SOLOMON Protocol Isosorbide Mononitrate 15 mg 03/20/22 09:00 03/21/22 08:29 Isosorbide Mononitrate Er 30 Mg Tablet PO 15 mg DAILY SOLOMON Administration Metoprolol Tartrate 100 mg 03/19/22 18:00 03/23/22 17:49 Metoprolol Tartrate 50 Mg Tablet PO 100 mg BID SOLOMON Administration Pantoprazole Sodium 40 mg 03/21/22 09:00 03/23/22 09:05 Pantoprazole 40 Mg Sdv IVP 40 mg DAILY SOLOMON Administration Prednisone 40 mg 03/23/22 09:00 03/23/22 09:04 Prednisone 20 Mg Tablet PO 40 mg DAILY SOLOMON Administration PFSH Acute PFSH: Medical History Atrial fibrillation CHF (congestive heart failure) CKD stage 2 due to type 2 diabetes mellitus COPD (chronic obstructive pulmonary disease) Diabetes mellitus, type II Diabetic neuropathy Difficulty with BiPAP use Dyslipidemia History of echocardiogram 2017 EF 65%. no wall motion abnormalities, Grade III/IV Diastolic Dysfunction; report in [employer] History of left heart catheterization 2018 normal coronary arteries; performed by Dr Zaman at [facility], report in [employer] History of right heart catheterization 2018 PCWP 15 mmHg, mean PAP 50 mmHg, responsive to SL NTG with reduction to 39 mmHg, consistent with reversibility; performed by Dr Zaman at [facility], report in [facility] History of sleep study 2018 Moderate obstructive sleep apnea, exacerbated by REM sleep, nocturnal hypoxia, elevated periodic limb movement index with a normal PLM-arousal index, abnormal sleep architecture related to first night effect, respiratory events and medications; report in [facility] Hypertension Morbid obesity On home oxygen therapy SHERLEY (obstructive sleep apnea) Surgical History S/P appendectomy Family History Mother CAD (coronary artery disease) Atrial fibrillation Father Lung disease Unknown Cancer Lung, Breast, Brain Other CHF (congestive heart failure) Social History Smoking and tobacco status: former smoker Alcohol intake: former Caregiver/support person: Yes Lives independently: Yes Household members: significant other Vitals/I&O/Wt Last Vital Signs Temp 97.8 F 03/24/22 07:45 Pulse 99 03/24/22 07:45 Resp 16 03/24/22 07:45 BP 97/67 03/24/22 07:45 Pulse Ox 95 03/24/22 07:45 O2 Del Method 03/24/22 07:45 O2 Flow Rate 6 03/24/22 08:00 FiO2 40 03/24/22 02:02 03/23/22 03/24/22 03/24/22 22:59 06:59 14:59 Intake Total 710 / 868.016 360 / 360 Balance 710 / 868.016 360 / 360 Physical Exam Urinary Catheter Management: Lord: Cath Placed During This Visit: yes Reason for Continuing Indwelling Catheter: Accurate Measurement of Urinary Output in Critically Ill Patients Urinary Catheter Date of Insertion: 03/19/22 Urinary Catheter Time of Insertion: 14:28 Data 03/24/22 05:11 03/24/22 05:11 A&P Assessment and plan (1) JAMES (acute kidney injury): Plan 1. Acute on chronic kidney disease: Patient has CKD with a baseline creatinine in the range of 1.5-2 range. Now now has JAMES with creatinine of 4.5 likely from aggressive diuresis. -We will hold diuretics temporarily, give IV albumin 25 g every 8 hours -Check UPCR, place on 2 g sodium restriction and 1500 mL fluid restriction, -Check renal ultrasound -No indication for renal replacement therapy currently, if renal function continues to get worse may require temporary dialysis 2. Metabolic alkalosis: Secondary to diuretic/contraction alkalosis likely, hold diuretics temporarily 3. Acute on chronic respiratory failure secondary to CHF and COPD 4. Anemia: Hemoglobin 9.7, check iron studies Patient evaluated using audiovisual cart. Time spent 45 minutes. 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
--- NOTE | 2022-03-24 10:06 | US_ITS ---
WS: [id number] ULTRASOUND RENAL TECHNIQUE: Ultrasound examination of both kidneys. CLINICAL INFORMATION: JAMES COMPARISON: None. FINDINGS: RIGHT: Echogenicity: Increased Hydronephrosis: None. Perinephric fluid: None. Right kidney measures: 14.8 cm x cm x 5.7 cm. LEFT: LEFT kidney poorly visualized. Echogenicity: Increased Hydronephrosis: None. Perinephric fluid: None. Left kidney measures: 13.0 cm x 7.8 cm x 7.8 cm. Normal visualized aorta. US/US renal BI* [id number] IMPRESSION: Images limited due to body habitus. 1. Increased echogenicity in both kidneys suspicious for medical renal disease . Kidneys are poorly visualized bilaterally due to body habitus. 2. No hydronephrosis in the kidney. 3. Lord catheter.
[2022-03-24 11:09] LABS: Glucose Point of Care 200 mg/dL (70-110)
[2022-03-24 17:20] LABS: Glucose Point of Care 170 mg/dL (70-110)
[2022-03-24 21:17] LABS: Glucose Point of Care 233 mg/dL (70-110)
[2022-03-24] MEDS: insulin glargine 100 units/1 mL 36 UNIT SUBCUT (21:25)
[2022-03-24] MEDS: duloxetine 60 mg Capsule PO (21:25)
[2022-03-24] MEDS: acetylcysteine 200 mg/mL SDV 4 mL INHALATION (21:32)
[2022-03-25] VITALS (13 sets, daily range): BP systolic 83–106; BP diastolic 48–74; PULSE 76–107; RESP 13–100; TEMP 36.5–36.9; O2SAT 93–99
[2022-03-25] MEDS: ipratropium-albuterol 3 mL Neb INHALATION ×4 (02:04→20:19)
[2022-03-25 05:51] LABS: Basophils % 0.1 %; Eosinophils # 0.1 10^3/uL (0.0-0.8); Eosinophils % 0.4 %; Hematocrit 31.7 % (42.0-52.0); Hemoglobin 9.4 g/dL (11.7-16.6); Lymphocytes # 1.7 10^3/uL (0.8-4.8); Lymphocytes % 13.4 %; Mean Corpuscular HGB Conc 29.7 g/dL (30.0-36.0); Mean Corpuscular Hemoglobin 28.7 pg (28.0-34.0); Mean Corpuscular Volume 96.9 fl (80-94); Mean Platelet Volume 12.1 fL (7.4-10.4); Monocytes # 1.1 10^3/uL (0.2-0.9); Monocytes % 8.3 %; Neutrophils # 9.82 10^3/uL (1.8-7.7); Neutrophils % 77.2 %; Nucleated Red Blood Cells % 0 %; Platelet Count 209 10^3/cmm (130-400); Red Blood Count 3.27 10^6/uL (4.1-5.3); Red Cell Distribution Width 15.3 % (12.1-15.1); White Blood Count 12.7 10^3/uL (4.0-10.0)
[2022-03-25 06:17] LABS: Alanine Aminotransferase 18 U/L (0-41); Albumin Level 3.8 g/dL (3.5-5.2); Alkaline Phosphatase 51 U/L (40-130); Anion Gap 20.6 (5-19); Aspartate Amino Transferase 20 U/L (0-40); Calcium 8.3 mg/dL (8.5-10.5); Carbon Dioxide 33 mmol/L (22-29); Chloride 91 mmol/L (98-107); Globulin 2.9 g/dL (1.3-4.6); Glomerular Filtration Rate 10.6 mL/min (90-130); Glucose 88 mg/dL (65-115); Osmolality Calculated 319 mOsm/kg (285-295); Potassium 3.6 mmol/L (3.5-5.1); Sodium 141 mmol/L (136-145); Total Bilirubin 0.2 mg/dL (0.15-1.2); Total Protein 6.7 g/dL (6.6-8.7)
[2022-03-25] MEDS: atorvastatin 40 mg Tablet 80 MG PO (06:24)
[2022-03-25 06:26] LABS: Glucose Point of Care 165 mg/dL (70-110)
[2022-03-25 06:28] LABS: Blood Urea Nitrogen 91 mg/dL (8-23)
--- NOTE | 2022-03-25 07:22 | P.PN_ITS ---
Subjective Subjective: feels better. OOB to chair, on NC O2 Vitals/I&O/Wt Last Vital Signs Temp 97.7 F 03/25/22 04:00 Pulse 76 03/25/22 06:00 Resp 19 H 03/25/22 04:00 BP 98/65 03/25/22 04:00 Pulse Ox 93 03/25/22 04:20 O2 Del Method 03/25/22 02:00 O2 Flow Rate 5 03/25/22 04:20 FiO2 40 03/25/22 02:00 03/24/22 03/25/22 03/25/22 22:59 06:59 14:59 Intake Total 820 / 1520 340 / 1860 Output Total 120 / 120 120 / 240 Balance 700 / 1400 220 / 1620 Physical Exam Const: COMMON NORMALS: no acute distress and alert Extremity: NARRATIVE EXTREMITY EXAM: + edema Neuro: SENSORIUM/ORIENTATION: Yes alert Urinary Catheter Management: Monterroso: Cath Placed During This Visit: yes Reason for Continuing Indwelling Catheter: Other Urinary Catheter Date of Insertion: 03/19/22 Urinary Catheter Time of Insertion: 14:28 Data 03/25/22 05:13 03/25/22 05:13 Other Labs: LFT normal, alb 3.8, Ca 8.3 U/A 1+ protein Micro: Microbiology 03/19/22 16:33 Blood Culture - Final Blood NO GROWTH AFTER 5 DAYS US: My impression: large kidneys Radiologist's impression: 1.?Increased echogenicity in both kidneys suspicious for medical renal disease. Kidneys are poorly visualized bilaterally due to body habitus. 2.? No hydronephrosis in the kidney. 3.? Monterroso catheter. Other data: seen via telemedicine with assistance of RN at bedside A&P Assessment and plan (1) JAMES (acute kidney injury): Plan 1. Acute oliguric kidney injury 2. Chronic kidney disease 3. Hypercapneic respiratory failure - improved 4. Anemia Recommend: check urine sodium/Cr, discontinue albumin, gentle IVF hydration. D/C monterroso tomorrow, iron studies Attestations Medical Necessity Statement*: see above Time Spent in Patient Care: 16 - 35 minutes Coding Level of Care Code Acute Visualization Developer for [facility] Diagnoses JAMES (acute kidney injury) N17.9
[2022-03-25] MEDS: acetylcysteine 200 mg/mL SDV 4 mL INHALATION ×2 (08:03→14:04)
[2022-03-25] MEDS: budesonide 0.5 mg/2 mL Neb INHALATION ×2 (08:03→20:19)
[2022-03-25] MEDS: insulin glargine 100 units/1 mL 32 UNIT SUBCUT (08:45)
[2022-03-25] MEDS: pantoprazole 40 mg SDV IVP (08:46)
[2022-03-25] MEDS: metoprolol tartrate 50 mg Tablet 100 MG PO (08:47)
[2022-03-25] MEDS: apixaban 5 mg Tablet PO ×2 (08:47→17:34)
[2022-03-25] MEDS: predniSONE 20 mg Tablet 40 MG PO (08:47)
[2022-03-25] MEDS: amiodarone 200 mg Tablet PO (08:47)
[2022-03-25] MEDS: insulin lispro 100 unit/1 mL SUBCUT ×3 (08:48→21:06)
[2022-03-25 11:11] LABS: Glucose Point of Care 114 mg/dL (70-110)
--- NOTE | 2022-03-25 15:11 | P.PN_ITS ---
Subjective Subjective: Patient was seen this morning, he is sitting up in a chair, on 3 L, at bedside, does have bilateral lower extremity edema, denies any shortness of breath, does report liquidy stools, -I had a detailed discussion with patient and his about the potential of dialysis as his creatinine has gone up to 5.5 and he continues to have lackluster urine output, and is developing lower extremity edema 2+ pitting edema right lower extremity -He had questions about dialysis catheter placement -I discussed a month detail the process of dialysis to correct electrolytes help with fluid overload -Hopefully the process is a temporary process however a New permanent dialysis based upon his kidney function -Patient is a certainly more agreeable, to dialysis, dialysis catheter placement but wants to think about it and talk to his - Vitals/I&O/Wt Last Vital Signs Temp 98.0 F 03/25/22 12:00 Pulse 87 03/25/22 14:17 Resp 18 03/25/22 14:00 BP 83/54 03/25/22 12:00 Pulse Ox 98 03/25/22 14:00 O2 Del Method 03/25/22 14:00 O2 Flow Rate 4 03/25/22 12:00 FiO2 40 03/25/22 14:00 03/25/22 03/25/22 03/25/22 06:59 14:59 22:59 Intake Total 340 / 1860 Output Total 120 / 240 Balance 220 / 1620 Physical Exam Const: COMMON NORMALS: no acute distress and patient oriented x3 Resp: COMMON NORMALS: normal respiratory effort, No retractions, No use of accessory muscles and clear to auscultation bilaterally AUSCULTATION: clear to auscultation bilaterally Cardio: COMMON NORMALS: regular rate, regular rhythm, S1 normal heart sound present and S2 normal heart sound present RATE: regular rate RHYTHM: regular rhythm HEART SOUNDS: S1 normal heart sound present and S2 normal heart sound present GI: COMMON NORMALS: Normal to inspection, nondistended, normoactive bowel sounds present and non-tender Extremity: NARRATIVE EXTREMITY EXAM: 2+ pitting edema bilateral extremity Neuro: COMMON NORMALS: patient oriented x3 Psych: COMMON NORMALS: mental status grossly normal Urinary Catheter Management: Lord: Cath Placed During This Visit: yes Reason for Continuing Indwelling Catheter: Other Urinary Catheter Date of Insertion: 03/19/22 Urinary Catheter Time of Insertion: 14:28 Data 03/25/22 05:13 03/25/22 05:13 Micro: Microbiology 03/19/22 16:33 Blood Culture - Final Blood NO GROWTH AFTER 5 DAYS A&P Assessment and plan (1) Acute on chronic respiratory failure with hypoxia and hypercapnia: Patient presenting with acute on chronic respiratory failure with hypoxia and hypercapnia. Likely precipitated by inconsistent BiPAP use at home. reports that BiPAP machine is not working correctly at home. She has tried to have the [employer] company troubleshoot the machine several times but does not appear to be working. We will have case management work with the DME provider so the patient has functional equipment for when he transitions to home. Intubated for hypercapnic respiratory failure on day of admission, high risk extubation performed on March 21, 2022. Patient currently transitioned down from BiPAP to supplemental O2 at 6 L/min. Currently tolerating this except for tachycardia. Likely that his symptoms are a combination of obesity hypoventilation, COPD exacerbation, volume overload with CHF. steroid down to prednisone 40 mg p.o. daily. Scheduled budesonide and DuoNeb inhalation. Added additional acetylcysteine inhalation to clear airway secretions. Patient has persisting left lower lobe infiltrates from his previous admission. Suspect that these may be radiological lag. However his sputum culture is still positive for gram-negative rods, identified as stenotrophomonas as on previous admissions. We will continue him on levofloxacin, will likely need a prolonged course given chronicity of symptoms. Anticipate at least a month for now. He scheduled to see pulmonology in May. HOLD Lasix given worsening renal function. Negative COVID and influenza PCR JAMES now with worsening creatinine, up to 5.5, hold Lasix, hypotension PT OT eval. Will need assessment of patient's functional status and stability prior to safe discharge to home. Patient was attempted to be placed at multiple alf facilities on last visit due to his overall deconditioning, however was declined. He did eventually go out to [facility] bed, however states he was discharged 4 days later with no therapy and did not have a BiPAP machine there.. He would not wish to return to the same facility again. Does have 2+ pitting edema, if his kidney function does not improve he will likely require dialysis due to developing fluid overload Start midodrine 10 every 6 hours due to soft blood pressures Hold metoprolol due to soft blood pressures CODE STATUS DNR/DNI (2) SHERLEY (obstructive sleep apnea): (3) CHF (congestive heart failure): Lasix as above Qualifiers: Heart failure type: diastolic Heart failure chronicity: acute on chronic Qualified Code(s): I50.33 - Acute on chronic diastolic (congestive) heart failure (4) Diabetes mellitus, type II: Insulin sliding scale Qualifiers: Diabetes mellitus complication status: with hyperglycemia Diabetes mellitus ferry terminal supervisor insulin use: with ferry terminal supervisor use Qualified Code(s): E11.65 - Type 2 diabetes mellitus with hyperglycemia; Z79.4 - intermediate (current) use of insulin (5) Hyperkalemia: (6) JAMES (acute kidney injury): JAMES on CKD Plan Hold antihypertensives as soft blood pressure. As above CODE STATUS: DNR/DNI DVT prophylaxis: Currently on anticoagulation with Eliquis Plan for today monitor urine output monitor creatinine start midodrine, stop metoprolol monitor respiratory status Attestations Medical Necessity Statement*: Patient requires hospitalization for JAMES on CKD Coding Level of Care Code Acute System Development Engineer for [facility] Fwd Diagnoses Acute on chronic respiratory failure with hypoxia and hypercapnia J96.21; J96.22 SHERLEY (obstructive sleep apnea) G47.33 CHF (congestive heart failure) I50.33 Heart failure type: diastolic Heart failure chronicity: acute on chronic Diabetes mellitus, type II E11.65; Z79.4 Diabetes mellitus complication status: with hyperglycemia Diabetes mellitus ferry terminal supervisor insulin use: with ferry terminal supervisor use Hyperkalemia E87.5 JAMES (acute kidney injury) N17.9
[2022-03-25] MEDS: sodium chloride 0.45% 1,000 ML 75 ML IV (15:35)
[2022-03-25] MEDS: midodrine 5 mg TABLET 10 MG PO ×2 (17:34→21:07)
[2022-03-25 18:23] LABS: Glucose Point of Care 337 mg/dL (70-110)
[2022-03-25 18:54] LABS: Urine Random Sodium 31 mmol/L
[2022-03-25 19:08] LABS: Creatinine Urine, Random 202 mg/dL (39-259)
[2022-03-25 20:08] LABS: Glucose Point of Care 339 mg/dL (70-110)
[2022-03-25 20:17] LABS: Total Volume, Urine 525 mL; Urine Total Protein 64.1 mg/dL (0-150); Urine Total Protein 24 Hour 336.5 mg/24hr (0-150)
[2022-03-25] MEDS: insulin glargine 100 units/1 mL 36 UNIT SUBCUT (21:07)
[2022-03-25] MEDS: duloxetine 60 mg Capsule PO (21:07)
[2022-03-25] MEDS: levofloxacin-dextrose 5 % 750 MG/150 ML PREMIX 100 MG IV (21:07)
[2022-03-26] VITALS (18 sets, daily range): BP systolic 93–122; BP diastolic 59–69; PULSE 73–121; RESP 16–21; TEMP 36.4–36.8; O2SAT 92–98
[2022-03-26] MEDS: ipratropium-albuterol 3 mL Neb INHALATION ×4 (01:15→21:53)
[2022-03-26 04:55] LABS: ABG PH Result 7.23 (7.35-7.45); Arterial Blood Gas Hematocrit 27.2 % (42-52); Base Excess ABG 4.1 mmol/L (-2.0-2.0); Blood Gas Allen Test Pos; Blood Gas LPM 3.5 %; Blood Gas Sample Site Radial, left; Blood Gas Sample Type Arterial; HCO3 ABG 32.9 mmol/L (22-26); Oxygen Device NC; PO2 ABG 89.6 mmHg (80.0-100.0)
[2022-03-26] MEDS: atorvastatin 40 mg Tablet 80 MG PO (05:00)
[2022-03-26] MEDS: sodium chloride 0.45% 1,000 ML 75 ML IV (05:00)
[2022-03-26] MEDS: midodrine 5 mg TABLET 10 MG PO ×4 (05:00→21:43)
[2022-03-26 05:03] LABS: ABG PCO2 78.2 mmHg (35-45)
[2022-03-26 05:43] LABS: Basophils % 0.1 %; Eosinophils # 0.1 10^3/uL (0.0-0.8); Eosinophils % 0.8 %; Hematocrit 29.8 % (42.0-52.0); Lymphocytes # 1.7 10^3/uL (0.8-4.8); Lymphocytes % 13.6 %; Mean Corpuscular HGB Conc 30.2 g/dL (30.0-36.0); Mean Corpuscular Hemoglobin 28.8 pg (28.0-34.0); Mean Corpuscular Volume 95.5 fl (80-94); Monocytes # 1.1 10^3/uL (0.2-0.9); Monocytes % 8.9 %; Neutrophils # 9.31 10^3/uL (1.8-7.7); Neutrophils % 75.9 %; Nucleated Red Blood Cells % 0 %; Platelet Count 203 10^3/cmm (130-400); Red Blood Count 3.12 10^6/uL (4.1-5.3); Red Cell Distribution Width 15.3 % (12.1-15.1); White Blood Count 12.3 10^3/uL (4.0-10.0)
[2022-03-26 06:07] LABS: Alanine Aminotransferase 18 U/L (0-41); Albumin Level 3.3 g/dL (3.5-5.2); Alkaline Phosphatase 50 U/L (40-130); Anion Gap 16.5 (5-19); Aspartate Amino Transferase 16 U/L (0-40); Calcium 7.9 mg/dL (8.5-10.5); Carbon Dioxide 32 mmol/L (22-29); Chloride 90 mmol/L (98-107); Globulin 2.8 g/dL (1.3-4.6); Glomerular Filtration Rate 9.4 mL/min (90-130); Glucose 108 mg/dL (65-115); Osmolality Calculated 314 mOsm/kg (285-295); Potassium 3.5 mmol/L (3.5-5.1); Sodium 135 mmol/L (136-145); Total Bilirubin 0.2 mg/dL (0.15-1.2); Total Protein 6.1 g/dL (6.6-8.7)
[2022-03-26 06:19] LABS: Ferritin 147 ng/mL (30-400); Iron 65 ug/dL (59-158); NT Pro B Type Natriuretic Pept 6697 pg/mL (0-125); Percent Saturation 37.7 % (20-50); Total Iron Binding Capacity 172 mcg/dl; Unsaturated Iron Binding 107 ug/dL (112-347)
[2022-03-26 06:21] LABS: Glucose Point of Care 115 mg/dL (70-110)
[2022-03-26 06:21] LABS: Blood Urea Nitrogen 105 mg/dL (8-23)
[2022-03-26 06:22] LABS: Phosphorus 9.1 mg/dL (2.5-4.5)
--- NOTE | 2022-03-26 07:54 | PM.PN ---
Subjective Subjective: weak, sob, poor uop, nausea, orthopnea, nury, feet edema. on nc02 Medications: Reviewed: Yes Medication Review Details: Current Medications Acetaminophen (Acetaminophen 325 Mg Tablet) 650 mg PO Q6H PRN PRN Reason: Mild/Mod Pain Or Temp >/= 101 Acetylcysteine (Acetylcysteine 200 Mg/Ml Sdv 4 Ml) 200 mg INHALATION Q6H.RESP [facility] Last Admin: 03/26/22 03:37 Dose: Not Given Albuterol/Ipratropium (Ipratropium-Albuterol 3 Ml Neb) 3 ml INHALATION Q6H [facility] Last Admin: 03/26/22 01:15 Dose: 3 ml Alprazolam (Alprazolam 0.5 Mg Tablet) 0.5 mg PO BID PRN PRN Reason: ANXIETY Last Admin: 03/23/22 09:05 Dose: 0.5 mg Amiodarone HCl (Amiodarone 200 Mg Tablet) 200 mg PO DAILY [facility] Last Admin: 03/25/22 08:47 Dose: 200 mg Apixaban (Apixaban 5 Mg Tablet) 5 mg PO BID [facility] Last Admin: 03/25/22 17:34 Dose: 5 mg Atorvastatin Calcium (Atorvastatin 40 Mg Tablet) 80 mg PO QAM [facility] Last Admin: 03/26/22 05:00 Dose: 80 mg Benzonatate (Benzonatate 100 Mg Capsule) 100 mg PO TID PRN PRN Reason: COUGH Budesonide (Budesonide 0.5 Mg/2 Ml Neb) 0.5 mg INHALATION BID.RESPIRATORY [facility] Last Admin: 03/25/22 20:19 Dose: 0.5 mg Dextrose (Dextrose 50% Syringe 50 Ml) 25 ml IVP ONCE PRN; Protocol PRN Reason: hypoglycemia protocol Dextrose (Dextrose 50% Syringe 50 Ml) 50 ml IVP PRN PRN; Protocol PRN Reason: hypoglycemia protocol Duloxetine HCl (Duloxetine 60 Mg Capsule) 60 mg PO BEDTIME [facility] Last Admin: 03/25/22 21:07 Dose: 60 mg Glucagon (Glucagon 1 Mg/Ml Inj 1 Ml) 1 mg IM ONCE PRN; Protocol PRN Reason: Adult Acute Hypoglycemia Prot. Dextrose (D5w) 500 mls @ 100 mls/hr IV ONCE PRN; Protocol PRN Reason: Adult Acute Hypoglycemia Prot Levofloxacin/Dextrose (Levaquin-D5w) 750 mg in 150 mls @ 100 mls/hr IV Q48H [facility]; Protocol Last Infusion: 03/26/22 00:02 Dose: Infused Sodium Chloride (Sodium Chloride 0.45%) 1,000 mls @ 75 mls/hr IV .[id number] [facility] Last Admin: 03/26/22 05:00 Dose: 75 mls/hr Insulin Glargine (Insulin Glargine 100 Units/1 Ml) 36 unit SUBCUT 2000 [facility] Last Admin: 03/25/22 21:07 Dose: 36 unit Insulin Glargine (Insulin Glargine 100 Units/1 Ml) 32 unit SUBCUT 0800 [facility] Last Admin: 03/25/22 08:45 Dose: 32 unit Insulin Human Lispro (Insulin Lispro 100 Unit/1 Ml) 0 unit SUBCUT WM&BEDTIME [facility]; Protocol Last Admin: 03/25/22 21:06 Dose: 12 unit Isosorbide Mononitrate (Isosorbide Mononitrate Er 30 Mg Tablet) 15 mg PO DAILY [facility] Last Admin: 03/21/22 08:29 Dose: 15 mg Midodrine (Midodrine 5 Mg Tablet) 10 mg PO Q6H [facility] Last Admin: 03/26/22 05:00 Dose: 10 mg Pantoprazole Sodium (Pantoprazole 40 Mg Sdv) 40 mg IVP DAILY [facility] Last Admin: 03/25/22 08:46 Dose: 40 mg Prednisone (Prednisone 20 Mg Tablet) 40 mg PO DAILY [facility] Last Admin: 03/25/22 08:47 Dose: 40 mg Vitals/I&O/Wt Last Vital Signs Temp 98.3 F 03/26/22 07:51 Pulse 82 03/26/22 06:00 Resp 18 03/26/22 07:51 BP 122/61 03/26/22 04:24 Pulse Ox 95 03/26/22 04:24 O2 Del Method 03/26/22 01:17 O2 Flow Rate 4 03/25/22 20:00 FiO2 40 03/26/22 01:17 03/25/22 03/26/22 03/26/22 22:59 06:59 14:59 Intake Total 390 / 390 1180 / 1570 Output Total 350 / 350 Balance 40 / 40 1180 / 1220 Physical Exam Narrative: obese man in chair, sob w/nc02 heent- nc/at,eomi, anicteric neck supple lung dull bases and crackles heart reg abd soft, nt, nd, + bs ext b/l feet and ankle eedema neuro- a,a, o x 3 Urinary Catheter Management: Lord: Cath Placed During This Visit: yes Reason for Continuing Indwelling Catheter: Other Urinary Catheter Date of Insertion: 03/19/22 Urinary Catheter Time of Insertion: 14:28 Data 03/26/22 05:22 03/26/22 05:22 Micro: Microbiology 03/25/22 15:30 Bacterial Antigens - Final Urine,Clean Catch 03/25/22 15:30 Legionella Urinary Antigen - Final Urine Catheterized A&P Assessment and plan (1) JAMES (acute kidney injury): see below seen and examined w/ RN- telehealth visist pt consents to telehealth exam Plan 61 yr old mna 1. Acute oliguric kidney injury- start lasix- if no improvement overnight- will likely need dialytsis 2. Chronic kidney disease stage 3- from obesity, htn dm -large kidneys on us- likely is from d. can check spep/ sife 3. Hypercapneic respiratory failure - bipap 4. Anemia- start po iron ferritin 147, 37% sat -consider epo soon 5. hypoantremia from chf, copd, james 6. hyperphopshatemia- binders and renal diet Recommend: check urine sodium/Cr, and repeat us likely needs dialysis soon Attestations Medical Necessity Statement*: james, copd, chf Time Spent in Patient Care: 16 - 35 minutes (>than 50% of time spent in counselling and/or direct pt care on unit). Coding Level of Care Code Acute Hooker Up for Antonette [facility] Diagnoses JAMES (acute kidney injury) N17.9
[2022-03-26] MEDS: budesonide 0.5 mg/2 mL Neb INHALATION ×2 (08:37→21:53)
[2022-03-26] MEDS: enoxaparin 150 mg/mL Syringe SUBCUT (09:33)
[2022-03-26] MEDS: insulin glargine 100 units/1 mL 32 UNIT SUBCUT (09:34)
[2022-03-26] MEDS: sevelamer 800 mg Tablet 1600 MG PO ×3 (09:34→21:43)
[2022-03-26] MEDS: amiodarone 200 mg Tablet PO (09:34)
[2022-03-26] MEDS: pantoprazole 40 mg SDV IVP (09:34)
[2022-03-26] MEDS: predniSONE 20 mg Tablet 40 MG PO (09:35)
[2022-03-26] MEDS: FUROsemide 10 mg/mL SDV 10mL 60 MG IVP ×2 (09:35→21:29)
--- NOTE | 2022-03-26 09:55 | P.CONIM_ITS ---
Providers/Reason For Consult Consulting Physician/Specialty*: Brian Henry MD Reason for Consult*: Acute kidney injury Requesting Physician: Dr. Stack Attending Physician: Garret Stack MD Primary Care Provider: Mason Giles MD History of Present Illness History of Present Illness Mr. Wayne Nicholson is a 61 year old male with a history of multiple medical comorbidities the form of morbid obesity, atrial fibrillation, diastolic CHF, COPD, type 2 diabetes, obstructive sleep apnea. Patient was admitted for worsening shortness of breath and has been taking care of by the hospitalist service and noticed that his kidney functions has been deteriorating. Nephrology service on board. Conservative measures have been initiated and continued to be entertained yet there is a concern about potential need of hemodialysis access. Subsequently general surgery was consulted for potential intervention if needed. Review of Systems General: Reports: 10 or more systems reviewed and unremarkable except in HPI and below Medications/Allergies Home Medications Medication Instructions Recorded Confirmed Last Taken Type multivitamin 1 tab PO DAILY 05/15/19 03/19/22 03/19/22 History concentrator and homefill oxygen #1 ea 09/30/20 03/19/22 Unknown Rx system blood sugar diagnostic #100 ea 03/10/21 03/19/22 Unknown Rx pen needle, diabetic 29 gauge x #100 ea 03/10/21 03/19/22 Unknown Rx 1/2 (Comfort EZ Pen [place]wick) blood-glucose meter (OneTouch #1 ea 03/14/21 03/19/22 Unknown Rx Ultra2 Meter kit) lancets (OneTouch UltraSoft #100 ea 03/14/21 03/19/22 Unknown Rx Lancets) metformin 1,000 mg tablet 1,000 mg PO BID #180 tabs 04/18/21 03/19/22 03/19/22 Rx blood-glucose meter,continuous #1 ea 06/07/21 03/19/22 Unknown Rx (Dexcom G6 Production Recorder misc) blood-glucose sensor (Dexcom G6 #3 ea 06/07/21 03/19/22 Unknown Rx Sensor device) blood-glucose transmitter (Dexcom #1 ea 06/07/21 03/19/22 Unknown Rx G6 Transmitter device) apixaban 5 mg tablet (Eliquis) 5 mg PO BID #180 tabs 10/27/21 03/19/22 03/19/22 Rx albuterol sulfate 90 mcg/actuation 2 puff inhalation Q6H PRN 12/02/21 03/19/22 01/30/22 History aerosol inhaler (ProAir HFA) Shortness Of Breath atorvastatin 80 mg tablet 80 mg PO QAM 12/02/21 03/19/22 03/19/22 History cholecalciferol (vitamin D3) 50 100 mcg PO DAILY 12/02/21 03/19/22 03/19/22 Hist ory mcg (2,000 unit) tablet (Vitamin D3) albuterol sulfate 2.5 mg/3 mL 2.5 mg (3 mL) inhalation QID PRN 12/05/21 03/19/22 Unknown Rx (0.083 %) solution for nebulization shortness of breath or wheezing #75 mL ascorbic acid (vitamin C) 500 mg 500 mg PO DAILY 01/30/22 03/19/22 03/19/22 History tablet,extended release (Vitamin C ER) cyanocobalamin (vitamin B-12) 100 100 mcg PO DAILY 01/30/22 03/19/22 03/19/22 History mcg tablet (Vitamin B-12) duloxetine 60 mg capsule,delayed 60 mg PO BEDTIME 01/30/22 03/19/22 03/18/22 History release acetylcysteine 200 mg/mL (20 %) 100 mg (0.5 mL) inhalation 02/22/22 03/19/22 Unknown Rx solution Q4H.RESPIRATORY PRN Shortness Of Breath #30 mL amiodarone 200 mg tablet (Pacerone) 200 mg PO DAILY #30 tabs 02/22/22 03/19/22 03/19/22 Rx ferrous gluconate 324 mg (37.5 mg 324 mg PO BIDWM #60 tabs 02/22/22 03/19/22 03/17/22 Rx iron) tablet fluticasone fur. 200 mcg-umeclid 1 inh inhalation DAILY 03/19/22 03/19/22 03/19/22 History 62.5 mcg-vilant 25 mcg inhalat.powder (Trelegy Ellipta) furosemide 40 mg tablet (Lasix) 40 mg PO QAM 03/19/22 03/19/22 03/19/22 History insulin glargine U-300 conc 300 See Rx Instructions .Route .COMPLEX 03/19/22 03/19/22 03/19/22 History unit/mL (3 mL) subcutaneous pen (TouCeres Max U-300 Tradiio) isosorbide mononitrate 30 mg 15 mg PO DAILY 03/19/22 03/19/22 03/19/22 History tablet,extended release 24 hr lisinopril 10 mg tablet 10 mg PO DAILY 03/19/22 03/19/22 03/19/22 History potassium chloride 20 mEq 10 meq PO BEDTIME 03/19/22 03/19/22 03/18/22 History tablet,extended release spironolactone 25 mg tablet 25 mg PO DAILY 03/19/22 03/19/22 03/19/22 History metoprolol tartrate 100 mg tablet 100 mg PO BID #60 tabs 03/20/22 Unknown Rx Allergies Allergy/AdvReac Type Severity Reaction Status Date / Time No Known Allergies Allergy Verified 03/26/22 09:57 Current Medications Generic Name Dose Route Start Last Admin Trade Name Freq PRN Reason Stop Dose Admin Acetylcysteine 200 mg 03/19/22 20:00 03/26/22 08:35 Acetylcysteine 200 Mg/Ml Sdv 4 Ml INHALATION Not Given Q6H.RESP [facility] Albuterol/Ipratropium 3 ml 03/19/22 20:00 03/26/22 08:37 Ipratropium-Albuterol 3 Ml Neb INHALATION 3 ml Q6H [facility] Administration Alprazolam 0.5 mg 03/22/22 10:49 03/23/22 09:05 Alprazolam 0.5 Mg Tablet PO 0.5 mg BID PRN Administration ANXIETY Amiodarone HCl 200 mg 03/20/22 09:00 03/25/22 08:47 Amiodarone 200 Mg Tablet PO 200 mg DAILY [facility] Administration Atorvastatin Calcium 80 mg 03/20/22 06:00 03/26/22 05:00 Atorvastatin 40 Mg Tablet PO 80 mg QAM [facility] Administration Budesonide 0.5 mg 03/19/22 20:00 03/26/22 08:37 Budesonide 0.5 Mg/2 Ml Neb INHALATION 0.5 mg BID.RESPIRATORY [facility] Administration Duloxetine HCl 60 mg 03/19/22 21:00 03/25/22 21:07 Duloxetine 60 Mg Capsule PO 60 mg BEDTIME [facility] Administration Levofloxacin/Dextrose 750 mg in 150 mls @ 100 mls/hr 03/25/22 19:00 03/26/22 00:02 Levaquin-D5w IV Infused Q48H [facility] Infusion Protocol Insulin Glargine 36 unit 03/19/22 20:00 03/25/22 21:07 Insulin Glargine 100 Units/1 Ml SUBCUT 36 unit 2000 [facility] Administration Insulin Glargine 32 unit 03/20/22 08:00 03/25/22 08:45 Insulin Glargine 100 Units/1 Ml SUBCUT 32 unit 0800 [facility] Administration Insulin Human Lispro 0 unit 03/19/22 18:29 03/25/22 21:06 Insulin Lispro 100 Unit/1 Ml SUBCUT 12 unit WM&BEDTIME [facility] Administration Protocol Isosorbide Mononitrate 15 mg 03/20/22 09:00 03/21/22 08:29 Isosorbide Mononitrate Er 30 Mg Tablet PO 15 mg DAILY [facility] Administration Midodrine 10 mg 03/25/22 16:00 03/26/22 05:00 Midodrine 5 Mg Tablet PO 10 mg Q6H [facility] Administration Pantoprazole Sodium 40 mg 03/21/22 09:00 03/25/22 08:46 Pantoprazole 40 Mg Sdv IVP 40 mg DAILY [facility] Administration Prednisone 40 mg 03/23/22 09:00 03/25/22 08:47 Prednisone 20 Mg Tablet PO 40 mg DAILY [facility] Administration PFSH Acute PFSH: Medical History Atrial fibrillation CHF (congestive heart failure) CKD stage 2 due to type 2 diabetes mellitus COPD (chronic obstructive pulmonary disease) Diabetes mellitus, type II Diabetic neuropathy Difficulty with BiPAP use Dyslipidemia History of echocardiogram 2018 EF 65%. no wall motion abnormalities, Grade III/IV Diastolic Dysfunction; report in [employer] History of left heart catheterization 2018 normal coronary arteries; performed by Dr Zaman at [facility], report in [employer] History of right heart catheterization 2018 PCWP 15 mmHg, mean PAP 50 mmHg, responsive to SL NTG with reduction to 39 mmHg, consistent with reversibility; performed by Dr Zaman at [facility], report in [employer] History of sleep study 2018 Moderate obstructive sleep apnea, exacerbated by REM sleep, nocturnal hypoxia, elevated periodic limb movement index with a normal PLM-arousal index, abnormal sleep architecture related to first night effect, respiratory events and medications; report in old [facility] Hypertension Morbid obesity On home oxygen therapy SHERLEY (obstructive sleep apnea) Surgical History S/P appendectomy Family History Mother CAD (coronary artery disease) Atrial fibrillation Father Lung disease Unknown Cancer Lung, Breast, Brain Other CHF (congestive heart failure) Social History Smoking and tobacco status: former smoker Alcohol intake: former Caregiver/support person: Yes Lives independently: Yes Household members: significant other Vitals/I&O/Wt Last Vital Signs Temp 98.3 F 03/26/22 07:51 Pulse 85 03/26/22 08:49 Resp 18 03/26/22 08:49 BP 122/61 03/26/22 04:24 Pulse Ox 98 03/26/22 08:49 O2 Del Method 03/26/22 08:49 O2 Flow Rate 4 03/25/22 20:00 FiO2 40 03/26/22 08:49 03/25/22 03/26/22 03/26/22 22:59 06:59 14:59 Intake Total 390 / 390 1180 / 1570 Output Total 350 / 350 Balance 40 / 40 1180 / 1220 Physical Exam Narrative: Patient is conscious alert oriented X3 Mild to moderate distress/on nasal cannula BMI 55 Head and neck examination PERRLA no masses no cervical lymphadenopathy no jaundice Cardiac examination audible S1-S2 no murmurs no gallops no arrhythmias Chest is clear bilateral,abscence of Rhonchi or wheezes,no surgical emphysema Abdomen nontender nondistended soft no organomegaly guarding or rigidity/no signs of peritonitis Lord catheter in place with clear urine Bilateral lower extremity swelling Urinary Catheter Management: Lord: Cath Placed During This Visit: yes Reason for Continuing Indwelling Catheter: Other Urinary Catheter Date of Insertion: 03/19/22 Urinary Catheter Time of Insertion: 14:28 Data 03/26/22 05:22 03/26/22 05:22 Micro: Microbiology 03/25/22 15:30 Bacterial Antigens - Final Urine,Clean Catch 03/25/22 15:30 Legionella Urinary Antigen - Final Urine Catheterized A&P Assessment and plan (1) JAMES (acute kidney injury): After history taking physical examination and reviewing the chart. Did discuss with the patient and his spouse about potential intervention in the form of jory cement of temporary hemodialysis catheter tomorrow in the OR. Pending further nephrology reevaluation tomorrow and further recommendations. Assurance and education All questions have been answered and all concerns have been addressed to patient's satisfaction. Consult Attestations Medical Necessity Statement: Per admitting service Coding Level of Care Code Acute Home Assessment Nurse for [facility] [place] Diagnoses JAMES (acute kidney injury) N17.9
[2022-03-26 11:17] LABS: Glucose Point of Care 109 mg/dL (70-110)
--- NOTE | 2022-03-26 12:15 | PC.SOCIAL ---
IMM Updated Updated pt on IMM. No questions voiced. Provided pt a copy. Initialed, dated, & timed copy in chart.
--- NOTE | 2022-03-26 13:31 | PM.PN ---
Subjective Subjective: Patient was seen this morning, at bedside, he is sitting up in a chair, he did sleep overnight, has had a bowel movement, he is agreeable to dialysis, discussed risks and benefits of dialysis he voiced understanding, all questions answered, agreed to proceed, also discussed dialysis catheter placement, he boisterously, all questions answered, discussed surgical procedure discussed risk and benefits, he boisterously, all questions answered agreed to proceed was at bedside all questions answered Vitals/I&O/Wt Last Vital Signs Temp 97.8 F 03/26/22 11:46 Pulse 99 03/26/22 11:46 Resp 18 03/26/22 11:46 BP 97/65 03/26/22 11:46 Pulse Ox 94 03/26/22 11:46 O2 Del Method 03/26/22 11:46 O2 Flow Rate 3 03/26/22 10:30 FiO2 40 03/26/22 08:49 03/25/22 03/26/22 03/26/22 22:59 06:59 14:59 Intake Total 390 / 390 1180 / 1570 240 / 240 Output Total 350 / 350 Balance 40 / 40 1180 / 1220 240 / 240 Physical Exam Const: COMMON NORMALS: no acute distress and patient oriented x3 Resp: COMMON NORMALS: normal respiratory effort, No retractions, No use of accessory muscles and clear to auscultation bilaterally AUSCULTATION: clear to auscultation bilaterally Cardio: COMMON NORMALS: regular rate, regular rhythm, S1 normal heart sound present and S2 normal heart sound present RATE: regular rate RHYTHM: regular rhythm HEART SOUNDS: S1 normal heart sound present and S2 normal heart sound present GI: COMMON NORMALS: Normal to inspection, nondistended, normoactive bowel sounds present and non-tender Extremity: NARRATIVE EXTREMITY EXAM: 2+ pitting edema bilateral lower extremity Neuro: COMMON NORMALS: patient oriented x3 Psych: COMMON NORMALS: mental status grossly normal Urinary Catheter Management: Lord: Cath Placed During This Visit: yes Reason for Continuing Indwelling Catheter: Other Urinary Catheter Date of Insertion: 03/19/22 Urinary Catheter Time of Insertion: 14:28 Data 03/26/22 05:22 03/26/22 05:22 Micro: Microbiology 03/25/22 15:30 Bacterial Antigens - Final Urine,Clean Catch 03/25/22 15:30 Legionella Urinary Antigen - Final Urine Catheterized A&P Assessment and plan (1) Acute on chronic respiratory failure with hypoxia and hypercapnia: Patient presenting with acute on chronic respiratory failure with hypoxia and hypercapnia. Likely precipitated by inconsistent BiPAP use at home. reports that BiPAP machine is not working correctly at home. She has tried to have the [employer] company troubleshoot the machine several times but does not appear to be working. We will have case management work with the DME provider so the patient has functional equipment for when he transitions to home. Intubated for hypercapnic respiratory failure on day of admission, high risk extubation performed on March 21, 2022. Patient currently transitioned down from BiPAP to supplemental O2 at 6 L/min. Currently tolerating this except for tachycardia. Likely that his symptoms are a combination of obesity hypoventilation, COPD exacerbation, volume overload with CHF. steroid down to prednisone 40 mg p.o. daily. Scheduled budesonide and DuoNeb inhalation. Added additional acetylcysteine inhalation to clear airway secretions. Patient has persisting left lower lobe infiltrates from his previous admission. Suspect that these may be radiological lag. However his sputum culture is still positive for gram-negative rods, identified as stenotrophomonas as on previous admissions. We will continue him on levofloxacin, will likely need a prolonged course given chronicity of symptoms. Anticipate at least a month for now. He scheduled to see pulmonology in May. HOLD Lasix given worsening renal function. Negative COVID and influenza PCR JAMES now with worsening creatinine, up to 6.1 hold Lasix, hypotension improving PT OT eval. Will need assessment of patient's functional status and stability prior to safe discharge to home. Patient was attempted to be placed at multiple custodial facilities on last visit due to his overall deconditioning, however was declined. He did eventually go out to [facility] bed, however states he was discharged 4 days later with no therapy and did not have a BiPAP machine there.. He would not wish to return to the same facility again. Does have 2+ pitting edema, if his kidney function does not improve he will likely require dialysis due to developing fluid overload Continue midodrine 10 every 6 hours due to soft blood pressures Metoprolol dose decreased to 50 twice daily Given his persistently elevated creatinine, evidence of fluid overload, n.p.o. midnight, for dialysis catheter placement tomorrow, will touch base with surgery again tomorrow morning to give the greenlight to proceed CODE STATUS DNR/DNI (2) SHERLEY (obstructive sleep apnea): (3) CHF (congestive heart failure): Lasix as above Qualifiers: Heart failure type: diastolic Heart failure chronicity: acute on chronic Qualified Code(s): I50.33 - Acute on chronic diastolic (congestive) heart failure (4) Diabetes mellitus, type II: Insulin sliding scale Qualifiers: Diabetes mellitus complication status: with hyperglycemia Diabetes mellitus longterm insulin use: with chemical unit operator 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 As above CODE STATUS: DNR/DNI DVT prophylaxis: Currently on anticoagulation with Eliquis Plan for today monitor urine output monitor creatinine start midodrine, stop metoprolol monitor respiratory status Attestations Medical Necessity Statement*: Patient requires hospitalization for persistent JAMES, fluid overload requiring dialysis Coding Level of Care Code Acute Drawstring Knotter for [facility] Fwd Diagnoses Acute on chronic respiratory failure with hypoxia and hypercapnia J96.21; J96.22 SHERLEY (obstructive sleep apnea) G47.33 CHF (congestive heart failure) I50.33 Heart failure type: diastolic Heart failure chronicity: acute on chronic Diabetes mellitus, type II E11.65; Z79.4 Diabetes mellitus complication status: with hyperglycemia Diabetes mellitus longterm insulin use: with chemical unit 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
[2022-03-26 17:04] LABS: Glucose Point of Care 166 mg/dL (70-110)
[2022-03-26] MEDS: insulin lispro 100 unit/1 mL SUBCUT ×2 (17:08→21:50)
[2022-03-26] MEDS: duloxetine 60 mg Capsule PO (21:42)
[2022-03-26] MEDS: insulin glargine 100 units/1 mL 36 UNIT SUBCUT (21:50)
[2022-03-26 22:48] LABS: Glucose Point of Care 249 mg/dL (70-110)
[2022-03-27] VITALS (12 sets, daily range): BP systolic 109–156; BP diastolic 62–79; PULSE 85–139; RESP 18–30; TEMP 36.4–36.8; O2SAT 92–97
[2022-03-27] MEDS: ipratropium-albuterol 3 mL Neb INHALATION (03:56)
[2022-03-27] MEDS: midodrine 5 mg TABLET 10 MG PO ×4 (04:06→21:12)
[2022-03-27] MEDS: atorvastatin 40 mg Tablet 80 MG PO (05:15)
[2022-03-27 05:21] LABS: ABG PH Result 7.33 (7.35-7.45); Alveolar-Arterial Oxygen Gradi 8.3 mmHg (5-10); Arterial Blood Gas Hematocrit 22.9 % (42-52); Base Excess ABG 6.5 mmol/L (-2.0-2.0); Blood Gas Allen Test Pos; Blood Gas Sample Site Radial, left; Blood Gas Sample Type Arterial; Carboxyhemoglobin 1.4 %THgb (0.4-20.1); HCO3 ABG 33.4 mmol/L (22-26); HGB O2 Sat 91.7 % (95-100); Oxygen Device BIPAP; Oxygen Saturation ABG 93.9; PO2 ABG 72.7 mmHg (80.0-100.0); Potassium Level - ABG 3.1 mmol/L (3.5-5.0); Total Hemoglobin 7.5 g/dL (14-18)
[2022-03-27 05:28] LABS: ABG PCO2 63.5 mmHg (35-45)
[2022-03-27 05:43] LABS: Basophils % 0.1 %; Eosinophils % 0.4 %; Hematocrit 27.9 % (42.0-52.0); Hemoglobin 8.4 g/dL (11.7-16.6); Lymphocytes # 1.6 10^3/uL (0.8-4.8); Lymphocytes % 14.9 %; Mean Corpuscular HGB Conc 30.1 g/dL (30.0-36.0); Mean Corpuscular Hemoglobin 28.4 pg (28.0-34.0); Mean Corpuscular Volume 94.3 fl (80-94); Mean Platelet Volume 12.6 fL (7.4-10.4); Monocytes % 9.7 %; Neutrophils # 7.93 10^3/uL (1.8-7.7); Neutrophils % 74.1 %; Nucleated Red Blood Cells % 0 %; Platelet Count 216 10^3/cmm (130-400); Red Blood Count 2.96 10^6/uL (4.1-5.3); Red Cell Distribution Width 15.6 % (12.1-15.1); White Blood Count 10.7 10^3/uL (4.0-10.0)
[2022-03-27 06:21] LABS: Alanine Aminotransferase 15 U/L (0-41); Alkaline Phosphatase 50 U/L (40-130); Anion Gap 15.1 (5-19); Aspartate Amino Transferase 17 U/L (0-40); Carbon Dioxide 32 mmol/L (22-29); Chloride 92 mmol/L (98-107); Globulin 2.7 g/dL (1.3-4.6); Glomerular Filtration Rate 9.8 mL/min (90-130); Glucose 199 mg/dL (65-115); NT Pro B Type Natriuretic Pept 5474 pg/mL (0-125); Osmolality Calculated 320 mOsm/kg (285-295); Phosphorus 7.3 mg/dL (2.5-4.5); Potassium 3.1 mmol/L (3.5-5.1); Sodium 136 mmol/L (136-145); Total Bilirubin 0.2 mg/dL (0.15-1.2); Total Protein 5.7 g/dL (6.6-8.7)
[2022-03-27 06:32] LABS: Blood Urea Nitrogen 103 mg/dL (8-23)
--- NOTE | 2022-03-27 07:47 | P.PN_ITS ---
Subjective Subjective: feels better. good uop. no n/v/f/c/xie/d. dec sob. still has some edema. Medications: Reviewed: Yes Medication Review Details: Current Medications Acetaminophen (Acetaminophen 325 Mg Tablet) 650 mg PO Q6H PRN PRN Reason: Mild/Mod Pain Or Temp >/= 101 Acetylcysteine (Mucomyst 200 Mg/Ml Sdv 30 Ml) 200 mg INHALATION Q6H.RESP [facility] Last Admin: 03/27/22 03:57 Dose: Not Given Albuterol/Ipratropium (Ipratropium-Albuterol 3 Ml Neb) 3 ml INHALATION Q6H [facility] Last Admin: 03/27/22 03:56 Dose: 3 ml Alprazolam (Alprazolam 0.5 Mg Tablet) 0.5 mg PO BID PRN PRN Reason: ANXIETY Last Admin: 03/23/22 09:05 Dose: 0.5 mg Amiodarone HCl (Amiodarone 200 Mg Tablet) 200 mg PO DAILY [facility] Last Admin: 03/26/22 09:34 Dose: 200 mg Atorvastatin Calcium (Atorvastatin 40 Mg Tablet) 80 mg PO QAM [facility] Last Admin: 03/27/22 05:15 Dose: 80 mg Benzonatate (Benzonatate 100 Mg Capsule) 100 mg PO TID PRN PRN Reason: COUGH Budesonide (Budesonide 0.5 Mg/2 Ml Neb) 0.5 mg INHALATION BID.RESPIRATORY [facility] Last Admin: 03/26/22 21:53 Dose: 0.5 mg Dextrose (Dextrose 50% Syringe 50 Ml) 25 ml IVP ONCE PRN; Protocol PRN Reason: hypoglycemia protocol Dextrose (Dextrose 50% Syringe 50 Ml) 50 ml IVP PRN PRN; Protocol PRN Reason: hypoglycemia protocol Duloxetine HCl (Duloxetine 60 Mg Capsule) 60 mg PO BEDTIME [facility] Last Admin: 03/26/22 21:42 Dose: 60 mg Ferrous Sulfate (Ferrous Sulfate 300 Mg/5 Ml Udc) 300 mg PO BIDWM [facility] Last Admin: 03/26/22 17:08 Dose: 300 mg Furosemide (Furosemide 10 Mg/Ml Sdv 10ml) 60 mg IVP Q12H [facility] Last Admin: 03/26/22 21:29 Dose: 60 mg Glucagon (Glucagon 1 Mg/Ml Inj 1 Ml) 1 mg IM ONCE PRN; Protocol PRN Reason: Adult Acute Hypoglycemia Prot. Dextrose (D5w) 500 mls @ 100 mls/hr IV ONCE PRN; Protocol PRN Reason: Adult Acute Hypoglycemia Prot Levofloxacin/Dextrose (Levaquin-D5w) 750 mg in 150 mls @ 100 mls/hr IV Q48H [facility]; Protocol Last Infusion: 03/26/22 00:02 Dose: Infused Insulin Glargine (Insulin Glargine 100 Units/1 Ml) 36 unit SUBCUT 2000 [facility] Last Admin: 03/26/22 21:50 Dose: 36 unit Insulin Glargine (Insulin Glargine 100 Units/1 Ml) 32 unit SUBCUT 0800 [facility]OM[facility] Last Admin: 03/26/22 09:34 Dose: 32 unit Insulin Human Lispro (Insulin Lispro 100 Unit/1 Ml) 0 unit SUBCUT WM&BEDTIME [facility]; Protocol Last Admin: 03/26/22 21:50 Dose: 8 unit Isosorbide Mononitrate (Isosorbide Mononitrate Er 30 Mg Tablet) 15 mg PO DAILY [facility] Last Admin: 03/21/22 08:29 Dose: 15 mg Midodrine (Midodrine 5 Mg Tablet) 10 mg PO Q6H [facility] Last Admin: 03/27/22 04:06 Dose: 10 mg Pantoprazole Sodium (Pantoprazole 40 Mg Sdv) 40 mg IVP DAILY [facility] Last Admin: 03/26/22 09:34 Dose: 40 mg Prednisone (Prednisone 20 Mg Tablet) 40 mg PO DAILY [facility] Last Admin: 03/26/22 09:35 Dose: 40 mg Sevelamer Carbonate (Sevelamer 800 Mg Tablet) 1,600 mg PO TID [facility] Last Admin: 03/26/22 21:43 Dose: 1,600 mg Vitals/I&O/Wt Last Vital Signs Temp 97.5 F L 03/27/22 07:36 Pulse 114 H 03/27/22 07:36 Resp 24 H 03/27/22 07:36 BP 129/62 03/27/22 07:36 Pulse Ox 94 03/27/22 07:36 O2 Del Method 03/27/22 07:36 O2 Flow Rate 3 03/26/22 21:55 FiO2 30 03/27/22 04:00 03/26/22 03/27/22 03/27/22 22:59 06:59 14:59 Intake Total 120 / 600 Output Total 1000 / 1000 800 / 1800 Balance -880 / -400 -800 / -1200 Physical Exam Narrative: obese man in bed, comfortable, using nc02 heent- nc/at,eomi, anicteric neck supple lung dull bases, improved air movement b/l heart reg abd soft, nt, nd, + bs ext b/l feet and ankle edema neuro- a,a, o x 3 Urinary Catheter Management: Lord: Cath Placed During This Visit: yes Reason for Continuing Indwelling Catheter: Acute Urinary Retention or Obstruction Urinary Catheter Date of Insertion: 03/19/22 Urinary Catheter Time of Insertion: 14:28 Data 03/27/22 05:17 03/27/22 05:17 Micro: Microbiology 03/19/22 16:33 Blood Culture - Final Blood Staphylococcus sp coag neg A&P Assessment and plan (1) JAMES (acute kidney injury): see below seen and examined w/ RN- telehealth visist pt consents to telehealth exam Plan 61 yr old mna 1. Acute oliguric kidney injury- renal function and cr improving- monitor on lasix. -hold dialysis for now 2. Chronic kidney disease stage 3- from obesity, htn dm -large kidneys on us- likely is from d. can check spep/ sife 3. Hypercapneic respiratory failure - bipap -improving 4. Anemia- start po iron ferritin 147, 37% sat- start oral iron -consider epo soon 5. hypoantremia from chf, copd, james -improving 6. hypokalemia- replete k and mag and monitor 7. hyperphopshatemia- improving as cr slightly improved and binders and renal diet -moitor for renal recovery Attestations Medical Necessity Statement*: james, electrolyte abnormalities Time Spent in Patient Care: 16 - 35 minutes (>than 50% of time spent in counselling and/or direct pt care on unit) . 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
[2022-03-27] MEDS: pantoprazole 40 mg SDV IVP (08:46)
[2022-03-27] MEDS: FUROsemide 10 mg/mL SDV 10mL 40 MG IVP ×2 (08:46→20:49)
[2022-03-27] MEDS: predniSONE 20 mg Tablet 40 MG PO (08:47)
[2022-03-27] MEDS: sevelamer 800 mg Tablet 1600 MG PO ×3 (08:47→21:11)
[2022-03-27] MEDS: insulin glargine 100 units/1 mL 32 UNIT SUBCUT (08:47)
[2022-03-27] MEDS: potassium chloride ER 20 mEq Tablet 40 MEQ PO (08:47)
[2022-03-27] MEDS: amiodarone 200 mg Tablet PO (08:47)
[2022-03-27 09:46] LABS: Glucose Point of Care 137 mg/dL (70-110)
[2022-03-27 09:46] LABS: Glucose Point of Care 167 mg/dL (70-110)
--- NOTE | 2022-03-27 12:24 | P.PN_ITS ---
Subjective Subjective: Patient reports he had trouble with his home BiPAP last night. Apparantly this has been going on for several weeks. His settings needs to be adjusted. He states otherwise his breathing and lower extremity swelling is at his baseline. Reports good appetite. Denies nausea, emesis, fevers, chills, or chest pain. He is up to bedside chair. Medications: Reviewed: Yes Vitals/I&O/Wt Last Vital Signs Temp 97.7 F 03/27/22 11:59 Pulse 98 03/27/22 11:59 Resp 18 03/27/22 11:59 BP 109/76 03/27/22 11:59 Pulse Ox 94 03/27/22 11:59 O2 Del Method 03/27/22 11:59 O2 Flow Rate 3 03/27/22 08:00 FiO2 30 03/27/22 04:00 03/26/22 03/27/22 03/27/22 22:59 06:59 14:59 Intake Total 120 / 600 540 / 540 Output Total 1000 / 1000 800 / 1800 Balance -880 / -400 -800 / -1200 540 / 540 Physical Exam Const: OTHER: General: Patient is awake and alert. Head: Normocephalic. Atraumatic. EOM intact. Neck: No JVD. Cardiovascular: RRR. No gallops. No murmurs. 3+ lower extremity edema. Lungs: Breath sounds diminished in bilateral bases, no use of accessory muscles, no crackles or wheezes. Skin: No jaundice. No rashes. Abdomen: Normal bowel sounds, abdomen soft and nontender. Genito Urinary: Genital exam not performed since complaints not related. Rectal: Rectal exam not performed since no symptoms indicated blood loss. Extremities: No cyanosis or clubbing. Musculoskeletal: No swollen or erythematous joints. Neurological: Moves all 4 extremities. No myoclonus. Urinary Catheter Management: Lord: Cath Placed During This Visit: yes Reason for Continuing Indwelling Catheter: Acute Urinary Retention or Obstruction Urinary Catheter Date of Insertion: 03/19/22 Urinary Catheter Time of Insertion: 14:28 Data 03/27/22 05:17 03/27/22 05:17 Micro: Microbiology 03/19/22 16:33 Blood Culture - Final Blood Staphylococcus sp coag neg A&P Assessment and plan (1) JAMES (acute kidney injury): Nephrology following High risk for dialysis BUN 103, Cr 5.9 Strict I&Os Daily weights Avoid nephrotoxins Renally dose medications Fluid restriction Continue IV Lasix (2) Acute on chronic respiratory failure with hypoxia and hypercapnia: Home BiPAP is malfunctioning Discussed with CM Follow up with RT for evaluation Continue acetylcysteine nebs (3) CHF (congestive heart failure): Acute on chronic diastolic heart failure with preserved ejection fraction Continue IV Lasix Qualifiers: Heart failure type: diastolic Heart failure chronicity: acute on chronic Qualified Code(s): I50.33 - Acute on chronic diastolic (congestive) heart failure (4) COPD (chronic obstructive pulmonary disease): With acute exacerbation Continue prednisone Continue Duonebs Tessalon Pulmonary toilet Qualifiers: COPD type: COPD with acute exacerbation Qualified Code(s): J44.1 - Chronic obstructive pulmonary disease with (acute) exacerbation (5) Anemia: Anemia of chronic disease Continue iron supplementation Conitnue to monitor Qualifiers: Anemia type: unspecified type Qualified Code(s): D64.9 - Anemia, unspecified (6) Hypotension: Continue midodrine (7) Hypokalemia: Replace potassium (8) Pneumonia: Continue Levaquin (9) Atrial fibrillation: Continue amiodarone Qualifiers: Atrial fibrillation type: longstanding persistent Qualified Code(s): I48.11 - Longstanding persistent atrial fibrillation (10) SHERLEY (obstructive sleep apnea): Continue BiPAP while sleeping (11) Dyslipidemia: Continue statin (12) BMI 50.0-59.9, adult: Would benefit from weight loss (13) Diabetes mellitus, type II: Continue Lantus SSI Avoid hypoglycemia Qualifiers: Diabetes mellitus complication status: with hyperglycemia Diabetes mellitus termite treater helper insulin use: with termite treater helper use Qualified Code(s): E11.65 - Type 2 diabetes mellitus with hyperglycemia; Z79.4 - retirement (current) use of insulin Plan DVT ppx: SCD Code status: DNR Attestations Medical Necessity Statement*: Patient requires ongoing hospitalization for IV Lasix, renal function monitoring, nephrology consultation, and electrolyte management. Coding Level of Care Code Acute Financial Center Manager for [facility] Fwd Diagnoses JAMES (acute kidney injury) N17.9 Acute on chronic respiratory failure with hypoxia and hypercapnia J96.21; J96.22 CHF (congestive heart failure) I50.33 Heart failure type: diastolic Heart failure chronicity: acute on chronic COPD (chronic obstructive pulmonary disease) J44.1 COPD type: COPD with acute exacerbation Anemia D64.9 Anemia type: unspecified type Hypotension I95.9 Hypokalemia E87.6 Pneumonia J18.9 Atrial fibrillation I48.11 Atrial fibrillation type: longstanding persistent SHERLEY (obstructive sleep apnea) G47.33 Dyslipidemia E78.5 BMI 50.0-59.9, adult Z68.43 Diabetes mellitus, type II E11.65; Z79.4 Diabetes mellitus complication status: with hyperglycemia Diabetes mellitus correction insulin use: with correction use
[2022-03-27 12:25] LABS: Glucose Point of Care 100 mg/dL (70-110)
[2022-03-27 17:02] LABS: Glucose Point of Care 240 mg/dL (70-110)
[2022-03-27] MEDS: insulin lispro 100 unit/1 mL SUBCUT ×2 (17:32→21:11)
[2022-03-27] MEDS: levofloxacin-dextrose 5 % 750 MG/150 ML PREMIX 100 MG IV (20:33)
[2022-03-27] MEDS: insulin glargine 100 units/1 mL 36 UNIT SUBCUT (21:11)
[2022-03-27] MEDS: duloxetine 60 mg Capsule PO (21:11)
[2022-03-27 21:52] LABS: Glucose Point of Care 228 mg/dL (70-110)
[2022-03-28] VITALS (13 sets, daily range): BP systolic 115–137; BP diastolic 70–83; PULSE 91–145; RESP 15–26; TEMP 36.6–37.2; O2SAT 93–97
[2022-03-28] MEDS: atorvastatin 40 mg Tablet 80 MG PO (05:03)
[2022-03-28] MEDS: midodrine 5 mg TABLET 10 MG PO ×3 (05:03→18:17)
[2022-03-28 05:51] LABS: Basophils % 0.1 %; Eosinophils # 0.1 10^3/uL (0.0-0.8); Eosinophils % 0.8 %; Hematocrit 29.1 % (42.0-52.0); Hemoglobin 8.8 g/dL (11.7-16.6); Lymphocytes # 2.3 10^3/uL (0.8-4.8); Lymphocytes % 23.9 %; Mean Corpuscular HGB Conc 30.2 g/dL (30.0-36.0); Mean Corpuscular Hemoglobin 28.7 pg (28.0-34.0); Mean Corpuscular Volume 94.8 fl (80-94); Monocytes % 10.6 %; Neutrophils # 6.15 10^3/uL (1.8-7.7); Nucleated Red Blood Cells % 0 %; Platelet Count 199 10^3/cmm (130-400); Red Blood Count 3.07 10^6/uL (4.1-5.3); Red Cell Distribution Width 15.6 % (12.1-15.1); White Blood Count 9.6 10^3/uL (4.0-10.0)
[2022-03-28 06:11] LABS: Alanine Aminotransferase 14 U/L (0-41); Albumin Level 3.4 g/dL (3.5-5.2); Alkaline Phosphatase 48 U/L (40-130); Anion Gap 17.2 (5-19); Aspartate Amino Transferase 12 U/L (0-40); Calcium 8.7 mg/dL (8.5-10.5); Carbon Dioxide 33 mmol/L (22-29); Chloride 98 mmol/L (98-107); Globulin 2.5 g/dL (1.3-4.6); Glomerular Filtration Rate 11.6 mL/min (90-130); Glucose 43 mg/dL (65-115); Osmolality Calculated 324 mOsm/kg (285-295); Phosphorus 5.3 mg/dL (2.5-4.5); Potassium 3.2 mmol/L (3.5-5.1); Sodium 145 mmol/L (136-145); Total Bilirubin 0.2 mg/dL (0.15-1.2); Total Protein 5.9 g/dL (6.6-8.7)
[2022-03-28 06:15] LABS: Glucose Point of Care 45 mg/dL (70-110)
[2022-03-28 06:28] LABS: Blood Urea Nitrogen 89 mg/dL (8-23)
[2022-03-28 08:05] LABS: Glucose Point of Care 56 mg/dL (70-110)
[2022-03-28 09:07] LABS: Glucose Point of Care 129 mg/dL (70-110)
[2022-03-28] MEDS: sevelamer 800 mg Tablet 1600 MG PO ×3 (09:54→20:41)
[2022-03-28] MEDS: amiodarone 200 mg Tablet PO (09:54)
--- NOTE | 2022-03-28 09:54 | PM.PN ---
Subjective Subjective: chronic sob. no n/f/cp/v/xie/d. Medications: Reviewed: Yes Medication Review Details: Current Medications Acetaminophen (Acetaminophen 325 Mg Tablet) 650 mg PO Q6H PRN PRN Reason: Mild/Mod Pain Or Temp >/= 101 Acetylcysteine (Mucomyst 200 Mg/Ml Sdv 30 Ml) 200 mg INHALATION Q6H.RESP [facility] Last Admin: 03/28/22 08:43 Dose: Not Given Albuterol/Ipratropium (Ipratropium-Albuterol 3 Ml Neb) 3 ml INHALATION Q6H [facility] Last Admin: 03/28/22 08:43 Dose: Not Given Alprazolam (Alprazolam 0.5 Mg Tablet) 0.5 mg PO BID PRN PRN Reason: ANXIETY Last Admin: 03/23/22 09:05 Dose: 0.5 mg Amiodarone HCl (Amiodarone 200 Mg Tablet) 200 mg PO DAILY [facility] Last Admin: 03/27/22 08:47 Dose: 200 mg Atorvastatin Calcium (Atorvastatin 40 Mg Tablet) 80 mg PO QAM [facility] Last Admin: 03/28/22 05:03 Dose: 80 mg Benzonatate (Benzonatate 100 Mg Capsule) 100 mg PO TID PRN PRN Reason: COUGH Budesonide (Budesonide 0.5 Mg/2 Ml Neb) 0.5 mg INHALATION BID.RESPIRATORY [facility] Last Admin: 03/28/22 08:43 Dose: Not Given Dextrose (Dextrose 50% Syringe 50 Ml) 25 ml IVP ONCE PRN; Protocol PRN Reason: hypoglycemia protocol Dextrose (Dextrose 50% Syringe 50 Ml) 50 ml IVP PRN PRN; Protocol PRN Reason: hypoglycemia protocol Duloxetine HCl (Duloxetine 60 Mg Capsule) 60 mg PO BEDTIME [facility] Last Admin: 03/27/22 21:11 Dose: 60 mg Ferrous Sulfate (Ferrous Sulfate 300 Mg/5 Ml Udc) 300 mg PO BIDWM [facility] Last Admin: 03/27/22 17:32 Dose: 300 mg Furosemide (Furosemide 10 Mg/Ml Sdv 10ml) 40 mg IVP Q12H [facility] Last Admin: 03/27/22 20:49 Dose: 40 mg Glucagon (Glucagon 1 Mg/Ml Inj 1 Ml) 1 mg IM ONCE PRN; Protocol PRN Reason: Adult Acute Hypoglycemia Prot. Dextrose (D5w) 500 mls @ 100 mls/hr IV ONCE PRN; Protocol PRN Reason: Adult Acute Hypoglycemia Prot Levofloxacin/Dextrose (Levaquin-D5w) 750 mg in 150 mls @ 100 mls/hr IV Q48H [facility]; Protocol Last Infusion: 03/27/22 22:18 Dose: Infused Insulin Glargine (Insulin Glargine 100 Units/1 Ml) 36 unit SUBCUT 2000 [facility] Last Admin: 03/27/22 21:11 Dose: 36 unit Insulin Glargine (Insulin Glargine 100 Units/1 Ml) 32 unit SUBCUT 0800 [facility] Last Admin: 03/27/22 08:47 Dose: 32 unit Insulin Human Lispro (Insulin Lispro 100 Unit/1 Ml) 0 unit SUBCUT WM&BEDTIME [facility]; Protocol Last Admin: 03/27/22 21:11 Dose: 8 unit Isosorbide Mononitrate (Isosorbide Mononitrate Er 30 Mg Tablet) 15 mg PO DAILY [facility] Last Admin: 03/21/22 08:29 Dose: 15 mg Midodrine (Midodrine 5 Mg Tablet) 10 mg PO Q6H [facility] Last Admin: 03/28/22 05:03 Dose: 10 mg Pantoprazole Sodium (Pantoprazole 40 Mg Sdv) 40 mg IVP DAILY [facility] Last Admin: 03/27/22 08:46 Dose: 40 mg Prednisone (Prednisone 20 Mg Tablet) 40 mg PO DAILY [facility] Last Admin: 03/27/22 08:47 Dose: 40 mg Sevelamer Carbonate (Sevelamer 800 Mg Tablet) 1,600 mg PO TID [facility] Last Admin: 03/27/22 21:11 Dose: 1,600 mg Vitals/I&O/Wt Last Vital Signs Temp 98 F 03/28/22 08:00 Pulse 104 H 03/28/22 08:42 Resp 18 03/28/22 08:42 BP 129/75 03/28/22 08:00 Pulse Ox 95 03/28/22 08:42 O2 Del Method 03/28/22 08:42 O2 Flow Rate 3 03/28/22 08:42 FiO2 30 03/28/22 04:20 03/27/22 03/28/22 03/28/22 22:59 06:59 14:59 Intake Total 1390 / 1930 740 / 2670 540 / 540 Output Total 1550 / 1550 2300 / 3850 Balance -160 / 380 -1560 / -1180 540 / 540 Physical Exam Narrative: obese man in bed, comfortable, using nc02 heent- nc/at,eomi, anicteric neck supple lungs dull bases b/l heart reg abd soft, nt, nd, + bs ext b/l feet and ankle edema neuro- a,a, o x 3 Urinary Catheter Management: Lord: Cath Placed During This Visit: yes Reason for Continuing Indwelling Catheter: Acute Urinary Retention or Obstruction Urinary Catheter Date of Insertion: 03/19/22 Urinary Catheter Time of Insertion: 14:28 Data 03/28/22 05:22 03/28/22 05:22 A&P Assessment and plan (1) JAMES (acute kidney injury): see below seen and examined w/ RN- telehealth visist pt consents to telehealth exam Plan 61 yr old mna 1. Acute oliguric kidney injury- renal function and cr improving- monitor on lasix. -no acute indication for dialysis - dec lasix dose 2. Chronic kidney disease stage 3- from obesity, htn dm -large kidneys on us- likely is from d. can check spep/ sife 3. Hypercapneic respiratory failure - bipap -improving 4. Anemia- start po iron ferritin 147, 37% sat- start oral iron -consider epo soon 5. hypernatremia from lasix 6. hypokalemia- replete k and mag and monitor 7. hyperphopshatemia- improving as cr slightly improved and binders and renal diet -monitor for renal recovery Attestations Medical Necessity Statement*: james, volume overload, sob, hypokalemia Time Spent in Patient Care: 16 - 35 minutes (>than 50% of time spent in counselling and/or direct pt care on unit). Coding Level of Care Code Acute Car Wiper for [facility] Fwd Diagnoses JAMES (acute kidney injury) N17.9
[2022-03-28] MEDS: predniSONE 20 mg Tablet 40 MG PO (09:55)
[2022-03-28] MEDS: FUROsemide 10 mg/mL SDV 10mL 40 MG IVP (09:57)
[2022-03-28] MEDS: pantoprazole 40 mg SDV IVP (09:57)
[2022-03-28] MEDS: potassium chloride ER 20 mEq Tablet 40 MEQ PO (10:13)
--- NOTE | 2022-03-28 10:31 | XRR_ITS ---
PROCEDURE INFORMATION: Exam: XR Chest Exam date and time: 03/28/2022 11:47 AM Age: 61 years old Clinical indication: Cough TECHNIQUE: Imaging protocol: Radiologic exam of the chest. Views: 1 view. COMPARISON: CR XR chest 1V portable [id number] 03/21/2022 8:04 AM FINDINGS: Lungs: Improved left base consolidation. No acute right lung abnormality. Pleural spaces: Slightly decreased left pleural effusion. Heart/Mediastinum: Unremarkable. No cardiomegaly. Diaphragm: Stable elevated left hemidiaphragm. Bones/joints: Unremarkable. XR/XR chest 1V portable [id number] IMPRESSION: Improved left lung with persistent basilar infiltrate and effusion.
--- NOTE | 2022-03-28 10:31 | PM.PN ---
Subjective Subjective: Patient reports cough. Described as nonproductive. Denies fevers, chills, chest pain or nausea. Inquires about fluid restriction. Reports edema is close to baseline. Medications: Reviewed: Yes Medication Review Details: Current Medications Acetaminophen (Acetaminophen 325 Mg Tablet) 650 mg PO Q6H PRN PRN Reason: Mild/Mod Pain Or Temp >/= 101 Acetylcysteine (Mucomyst 200 Mg/Ml Sdv 30 Ml) 200 mg INHALATION Q6H.RESP [facility] Last Admin: 03/28/22 08:43 Dose: Not Given Albuterol/Ipratropium (Ipratropium-Albuterol 3 Ml Neb) 3 ml INHALATION Q6H [facility] Last Admin: 03/28/22 08:43 Dose: Not Given Alprazolam (Alprazolam 0.5 Mg Tablet) 0.5 mg PO BID PRN PRN Reason: ANXIETY Last Admin: 03/23/22 09:05 Dose: 0.5 mg Amiodarone HCl (Amiodarone 200 Mg Tablet) 200 mg PO DAILY [facility] Last Admin: 03/27/22 08:47 Dose: 200 mg Atorvastatin Calcium (Atorvastatin 40 Mg Tablet) 80 mg PO QAM [facility] Last Admin: 03/28/22 05:03 Dose: 80 mg Benzonatate (Benzonatate 100 Mg Capsule) 100 mg PO TID PRN PRN Reason: COUGH Budesonide (Budesonide 0.5 Mg/2 Ml Neb) 0.5 mg INHALATION BID.RESPIRATORY [facility] Last Admin: 03/28/22 08:43 Dose: Not Given Dextrose (Dextrose 50% Syringe 50 Ml) 25 ml IVP ONCE PRN; Protocol PRN Reason: hypoglycemia protocol Dextrose (Dextrose 50% Syringe 50 Ml) 50 ml IVP PRN PRN; Protocol PRN Reason: hypoglycemia protocol Duloxetine HCl (Duloxetine 60 Mg Capsule) 60 mg PO BEDTIME [facility] Last Admin: 03/27/22 21:11 Dose: 60 mg Ferrous Sulfate (Ferrous Sulfate 300 Mg/5 Ml Udc) 300 mg PO BIDWM [facility] Last Admin: 03/27/22 17:32 Dose: 300 mg Furosemide (Furosemide 10 Mg/Ml Sdv 10ml) 40 mg IVP Q12H [facility] Last Admin: 03/27/22 20:49 Dose: 40 mg Glucagon (Glucagon 1 Mg/Ml Inj 1 Ml) 1 mg IM ONCE PRN; Protocol PRN Reason: Adult Acute Hypoglycemia Prot. Dextrose (D5w) 500 mls @ 100 mls/hr IV ONCE PRN; Protocol PRN Reason: Adult Acute Hypoglycemia Prot Levofloxacin/Dextrose (Levaquin-D5w) 750 mg in 150 mls @ 100 mls/hr IV Q48H [facility]; Protocol Last Infusion: 03/27/22 22:18 Dose: Infused Insulin Glargine (Insulin Glargine 100 Units/1 Ml) 36 unit SUBCUT 2000 [facility] Last Admin: 03/27/22 21:11 Dose: 36 unit Insulin Glargine (Insulin Glargine 100 Units/1 Ml) 32 unit SUBCUT 0800 [facility] Last Admin: 03/27/22 08:47 Dose: 32 unit Insulin Human Lispro (Insulin Lispro 100 Unit/1 Ml) 0 unit SUBCUT WM&BEDTIME [facility]; Protocol Last Admin: 03/27/22 21:11 Dose: 8 unit Isosorbide Mononitrate (Isosorbide Mononitrate Er 30 Mg Tablet) 15 mg PO DAILY [facility] Last Admin: 03/21/22 08:29 Dose: 15 mg Midodrine (Midodrine 5 Mg Tablet) 10 mg PO Q6H [facility] Last Admin: 03/28/22 05:03 Dose: 10 mg Pantoprazole Sodium (Pantoprazole 40 Mg Sdv) 40 mg IVP DAILY [facility] Last Admin: 03/27/22 08:46 Dose: 40 mg Prednisone (Prednisone 20 Mg Tablet) 40 mg PO DAILY [facility] Last Admin: 03/27/22 08:47 Dose: 40 mg Sevelamer Carbonate (Sevelamer 800 Mg Tablet) 1,600 mg PO TID [facility] Last Admin: 03/27/22 21:11 Dose: 1,600 mg Vitals/I&O/Wt Last Vital Signs Temp 98 F 03/28/22 08:00 Pulse 104 H 03/28/22 08:42 Resp 18 03/28/22 08:42 BP 129/75 03/28/22 08:00 Pulse Ox 95 03/28/22 08:42 O2 Del Method 03/28/22 08:42 O2 Flow Rate 3 03/28/22 08:42 FiO2 30 03/28/22 04:20 03/27/22 03/28/22 03/28/22 22:59 06:59 14:59 Intake Total 1390 / 1930 740 / 2670 540 / 540 Output Total 1550 / 1550 2300 / 3850 Balance -160 / 380 -1560 / -1180 540 / 540 Physical Exam Const: OTHER: General: Patient is awake and alert. Head: Normocephalic. Atraumatic. EOM intact. Neck: No JVD. Cardiovascular: RRR. No gallops. No murmurs. 3+ lower extremity edema, unchanged from prior exam. Lungs: Breath sounds diminished in bilateral bases, no use of accessory muscles, no crackles or wheezes. Skin: No jaundice. No rashes. Abdomen: Normal bowel sounds, abdomen soft and nontender. Genito Urinary: Genital exam not performed since complaints not related. Rectal: Rectal exam not performed since no symptoms indicated blood loss. Extremities: No cyanosis or clubbing. Musculoskeletal: No swollen or erythematous joints. Neurological: Moves all 4 extremities. No myoclonus. Urinary Catheter Management: Lord: Cath Placed During This Visit: yes Reason for Continuing Indwelling Catheter: Acute Urinary Retention or Obstruction Urinary Catheter Date of Insertion: 03/19/22 Urinary Catheter Time of Insertion: 14:28 Data 03/28/22 05:22 03/28/22 05:22 A&P Assessment and plan (1) JAMES (acute kidney injury): Nephrology following High risk for dialysis BUN 89, creatinine 5.1 Strict I&Os Daily weights Avoid nephrotoxins Renally dose medications Fluid restriction Continue IV Lasix, dose adjusted (2) Acute on chronic respiratory failure with hypoxia and hypercapnia: Discussed with patient's we will have the home machine looked at by providing company Continue acetylcysteine nebs Continue antibiotics Continue optimizing fluid balance (3) CHF (congestive heart failure): Acute on chronic diastolic heart failure with preserved ejection fraction Continue IV Lasix Qualifiers: Heart failure type: diastolic Heart failure chronicity: acute on chronic Qualified Code(s): I50.33 - Acute on chronic diastolic (congestive) heart failure (4) COPD (chronic obstructive pulmonary disease): With acute exacerbation Continue prednisone Continue Duonebs Tessalon Pulmonary toilet Chest x-ray ordered Qualifiers: COPD type: COPD with acute exacerbation Qualified Code(s): J44.1 - Chronic obstructive pulmonary disease with (acute) exacerbation (5) Anemia: Anemia of chronic disease Continue iron supplementation Conitnue to monitor Qualifiers: Anemia type: unspecified type Qualified Code(s): D64.9 - Anemia, unspecified (6) Hypotension: Continue midodrine (7) Hypokalemia: Replace potassium as needed (8) Pneumonia: Continue Levaquin (9) Atrial fibrillation: Continue amiodarone Qualifiers: Atrial fibrillation type: longstanding persistent Qualified Code(s): I48.11 - Longstanding persistent atrial fibrillation (10) SHERLEY (obstructive sleep apnea): Continue BiPAP while sleeping (11) Dyslipidemia: Continue statin (12) BMI 50.0-59.9, adult: Would benefit from weight loss (13) Diabetes mellitus, type II: With hypoglycemia Decrease Lantus SSI Avoid hypoglycemia Qualifiers: Diabetes mellitus complication status: with hyperglycemia Diabetes mellitus long-term insulin use: with french translator use Qualified Code(s): E11.65 - Type 2 diabetes mellitus with hyperglycemia; Z79.4 - warp tier (current) use of insulin Plan DVT ppx: SCD Code status: DNR Attestations Medical Necessity Statement*: Patient requires ongoing hospitalization for IV antibiotics, IV Lasix, electrolyte monitoring, supplemental respiratory support, supportive care, and nephrology evaluations Coding Level of Care Code Acute Sonar Watchstander for [facility] Fwd Diagnoses JAMES (acute kidney injury) N17.9 Acute on chronic respiratory failure with hypoxia and hypercapnia J96.21; J96.22 CHF (congestive heart failure) I50.33 Heart failure type: diastolic Heart failure chronicity: acute on chronic COPD (chronic obstructive pulmonary disease) J44.1 COPD type: COPD with acute exacerbation Anemia D64.9 Anemia type: unspecified type Hypotension I95.9 Hypokalemia E87.6 Pneumonia J18.9 Atrial fibrillation I48.11 Atrial fibrillation type: longstanding persistent SHERLEY (obstructive sleep apnea) G47.33 Dyslipidemia E78.5 BMI 50.0-59.9, adult Z68.43 Diabetes mellitus, type II E11.65; Z79.4 Diabetes mellitus complication status: with hyperglycemia Diabetes mellitus long-term insulin use: with long-term use
[2022-03-28 11:49] LABS: Glucose Point of Care 93 mg/dL (70-110)
--- NOTE | 2022-03-28 13:30 | PC.SOCIAL ---
IMM update IMM updated with patient and family at bedside. Verbalized an understanding. Copy Pg 2 provided. Initialled, dated, timed, and placed in chart.
[2022-03-28 16:59] LABS: Glucose Point of Care 184 mg/dL (70-110)
[2022-03-28] MEDS: insulin lispro 100 unit/1 mL SUBCUT ×2 (18:17→20:41)
[2022-03-28 20:36] LABS: Glucose Point of Care 293 mg/dL (70-110)
[2022-03-28] MEDS: duloxetine 60 mg Capsule PO (20:41)
[2022-03-28] MEDS: insulin glargine 100 units/1 mL 20 UNIT SUBCUT (20:41)
[2022-03-29] VITALS (10 sets, daily range): BP systolic 115–138; BP diastolic 75–92; PULSE 96–124; RESP 15–29; TEMP 36.7–37; O2SAT 92–98
[2022-03-29] MEDS: midodrine 5 mg TABLET 10 MG PO ×3 (00:09→21:36)
[2022-03-29 05:18] LABS: Basophils % 0.1 %; Eosinophils # 0.1 10^3/uL (0.0-0.8); Eosinophils % 0.6 %; Hemoglobin 8.7 g/dL (11.7-16.6); Lymphocytes # 1.5 10^3/uL (0.8-4.8); Lymphocytes % 17.7 %; Mean Corpuscular Hemoglobin 27.9 pg (28.0-34.0); Mean Corpuscular Volume 96.2 fl (80-94); Mean Platelet Volume 12.4 fL (7.4-10.4); Monocytes % 11.3 %; Neutrophils # 5.84 10^3/uL (1.8-7.7); Neutrophils % 69.7 %; Nucleated Red Blood Cells % 0 %; Platelet Count 198 10^3/cmm (130-400); Red Blood Count 3.12 10^6/uL (4.1-5.3); Red Cell Distribution Width 15.6 % (12.1-15.1); White Blood Count 8.4 10^3/uL (4.0-10.0)
[2022-03-29 05:41] LABS: Albumin Level 3.3 g/dL (3.5-5.2); Anion Gap 14.6 (5-19); Blood Urea Nitrogen 75 mg/dL (8-23); Calcium 8.8 mg/dL (8.5-10.5); Carbon Dioxide 35 mmol/L (22-29); Chloride 99 mmol/L (98-107); Glomerular Filtration Rate 14.1 mL/min (90-130); Glucose 203 mg/dL (65-115); Magnesium 2.1 mg/dL (1.7-2.3); Phosphorus 4.1 mg/dL (2.5-4.5); Potassium 3.6 mmol/L (3.5-5.1); Sodium 145 mmol/L (136-145)
[2022-03-29] MEDS: atorvastatin 40 mg Tablet 80 MG PO (05:54)
[2022-03-29] MEDS: FUROsemide 10 mg/mL SDV 10mL 40 MG IVP (05:54)
[2022-03-29 06:42] LABS: Glucose Point of Care 200 mg/dL (70-110)
--- NOTE | 2022-03-29 07:18 | PM.PN ---
Subjective Subjective: feels better. dec edema. chronic orthopnea, SINGH. no xie or cp. good appetite. good uop Medications: Reviewed: Yes Medication Review Details: Current Medications Acetaminophen (Acetaminophen 325 Mg Tablet) 650 mg PO Q6H PRN PRN Reason: Mild/Mod Pain Or Temp >/= 101 Acetylcysteine (Mucomyst 200 Mg/Ml Sdv 30 Ml) 200 mg INHALATION Q6H.RESP [facility] Last Admin: 03/29/22 02:48 Dose: Not Given Albuterol/Ipratropium (Ipratropium-Albuterol 3 Ml Neb) 3 ml INHALATION Q6H [facility] Last Admin: 03/29/22 02:48 Dose: Not Given Alprazolam (Alprazolam 0.5 Mg Tablet) 0.5 mg PO BID PRN PRN Reason: ANXIETY Last Admin: 03/23/22 09:05 Dose: 0.5 mg Amiodarone HCl (Amiodarone 200 Mg Tablet) 200 mg PO DAILY [facility] Last Admin: 03/28/22 09:54 Dose: 200 mg Atorvastatin Calcium (Atorvastatin 40 Mg Tablet) 80 mg PO QAM [facility] Last Admin: 03/29/22 05:54 Dose: 80 mg Benzonatate (Benzonatate 100 Mg Capsule) 100 mg PO TID PRN PRN Reason: COUGH Budesonide (Budesonide 0.5 Mg/2 Ml Neb) 0.5 mg INHALATION BID.RESPIRATORY [facility] Last Admin: 03/28/22 21:43 Dose: Not Given Dextrose (Dextrose 50% Syringe 50 Ml) 25 ml IVP ONCE PRN; Protocol PRN Reason: hypoglycemia protocol Dextrose (Dextrose 50% Syringe 50 Ml) 50 ml IVP PRN PRN; Protocol PRN Reason: hypoglycemia protocol Duloxetine HCl (Duloxetine 60 Mg Capsule) 60 mg PO BEDTIME [facility] Last Admin: 03/28/22 20:41 Dose: 60 mg Ferrous Sulfate (Ferrous Sulfate 300 Mg/5 Ml Udc) 300 mg PO BIDWM [facility] Last Admin: 03/28/22 18:17 Dose: 300 mg Furosemide (Furosemide 10 Mg/Ml Sdv 10ml) 40 mg IVP Q24H [facility] Last Admin: 03/29/22 05:54 Dose: 40 mg Glucagon (Glucagon 1 Mg/Ml Inj 1 Ml) 1 mg IM ONCE PRN; Protocol PRN Reason: Adult Acute Hypoglycemia Prot. Dextrose (D5w) 500 mls @ 100 mls/hr IV ONCE PRN; Protocol PRN Reason: Adult Acute Hypoglycemia Prot Levofloxacin/Dextrose (Levaquin-D5w) 750 mg in 150 mls @ 100 mls/hr IV Q48H [facility]; Protocol Last Infusion: 03/27/22 22:18 Dose: Infused Insulin Glargine (Insulin Glargine 100 Units/1 Ml) 10 unit SUBCUT 0800 [facility] Insulin Glargine (Insulin Glargine 100 Units/1 Ml) 20 unit SUBCUT 2000 [facility] Last Admin: 03/28/22 20:41 Dose: 20 unit Insulin Human Lispro (Insulin Lispro 100 Unit/1 Ml) 0 unit SUBCUT WM&BEDTIME [facility]; Protocol Last Admin: 03/28/22 20:41 Dose: 10 unit Isosorbide Mononitrate (Isosorbide Mononitrate Er 30 Mg Tablet) 15 mg PO DAILY [facility] Last Admin: 03/21/22 08:29 Dose: 15 mg Midodrine (Midodrine 5 Mg Tablet) 10 mg PO Q6H [facility] Last Admin: 03/29/22 05:54 Dose: 10 mg Pantoprazole Sodium (Pantoprazole 40 Mg Sdv) 40 mg IVP DAILY [facility] Last Admin: 03/28/22 09:57 Dose: 40 mg Prednisone (Prednisone 20 Mg Tablet) 40 mg PO DAILY [facility] Last Admin: 03/28/22 09:55 Dose: 40 mg Sevelamer Carbonate (Sevelamer 800 Mg Tablet) 1,600 mg PO TID [facility] Last Admin: 03/28/22 20:41 Dose: 1,600 mg Vitals/I&O/Wt Last Vital Signs Temp 98.2 F 03/29/22 04:00 Pulse 124 H 03/29/22 05:12 Resp 20 H 03/29/22 04:00 BP 115/77 03/29/22 04:00 Pulse Ox 96 03/29/22 04:00 O2 Del Method 03/29/22 04:00 O2 Flow Rate 3 03/28/22 23:52 FiO2 30 03/29/22 03:58 03/28/22 03/29/22 03/29/22 22:59 06:59 14:59 Intake Total 260 / 1160 480 / 1640 Output Total 1950 / 1950 450 / 2400 Balance -1690 / -790 30 / -760 Physical Exam Narrative: obese man in bed, comfortable, usig nc02 heent- nc/at,eomi, anicteric neck supple lungs dull bases b/l heart irreg irreg- tachy, +CONCHIS abd soft, nt, nd, + bs ext b/l feet and ankle edema neuro- a,a, o x 3 Urinary Catheter Management: Lord: Cath Placed During This Visit: yes Reason for Continuing Indwelling Catheter: Acute Urinary Retention or Obstruction Urinary Catheter Date of Insertion: 03/19/22 Urinary Catheter Time of Insertion: 14:28 Data 03/29/22 04:36 03/29/22 04:36 A&P Assessment and plan (1) JAMES (acute kidney injury): see below seen and examined w/ RN- telehealth visist pt consents to telehealth exam Plan 61 yr old mna 1. Acute oliguric kidney injury- renal function and cr improving- monitor on lasix. -no acute indication for dialysis - use oral lasix -replete k 2. Chronic kidney disease stage 3- from obesity, htn dm -large kidneys on us- likely is from d. can check spep/ sife 3. Hypercapneic respiratory failure - bipap -improving 4. Anemia- start po iron ferritin 147, 37% sat- start oral iron -consider epo soon 5. hypernatremia from lasix 6. hypokalemia- replete k and mag and monitor 7. hyperphopshatemia- improving as cr slightly improved and binders and renal diet -hold binders -monitor for renal recovery Attestations Medical Necessity Statement*: james improving, edema, SOB, anemia Time Spent in Patient Care: 16 - 35 minutes (>than 50% of time spent in counselling and/or direct pt care on unit). Coding Level of Care Code Acute Field Technical Specialist for [facility] Fwd Diagnoses JAMES (acute kidney injury) N17.9
--- NOTE | 2022-03-29 08:30 | PM.PN ---
Subjective Subjective: Patient reports his breathing is at baseline. Dyspnea on exertion. Reports edema at baseline. Spouse reports he has had multiple loose greenish colored bowel movements. She does report he has a history of C. difficile. Reports upset stomach yesterday. Denies current abdominal pain. Denies fevers, chills, nausea or emesis. Medications: Reviewed: Yes Vitals/I&O/Wt Last Vital Signs Temp 98.6 F 03/29/22 08:00 Pulse 114 H 03/29/22 08:00 Resp 28 H 03/29/22 08:00 BP 128/92 03/29/22 08:00 Pulse Ox 92 03/29/22 08:00 O2 Del Method 03/29/22 08:00 O2 Flow Rate 3 03/29/22 08:00 FiO2 30 03/29/22 03:58 03/28/22 03/29/22 03/29/22 22:59 06:59 14:59 Intake Total 260 / 1160 480 / 1640 Output Total 1950 / 1950 450 / 2400 Balance -1690 / -790 30 / -760 Physical Exam Const: OTHER: General: Patient is awake and alert. Sitting in bedside chair. Head: Normocephalic. Atraumatic. EOM intact. Neck: No JVD. Cardiovascular: RRR. No gallops. No murmurs. 3+ lower extremity edema, similar to prior exams. Lungs: Breath sounds diminished in bilateral bases, no use of accessory muscles, no crackles or wheezes. Skin: No jaundice. No rashes. Abdomen: Normal bowel sounds, abdomen soft and nontender. Genito Urinary: Genital exam not performed since complaints not related. Rectal: Rectal exam not performed since no symptoms indicated blood loss. Extremities: No cyanosis or clubbing. Musculoskeletal: No swollen or erythematous joints. Neurological: Moves all 4 extremities. No myoclonus. Urinary Catheter Management: Lord: Cath Placed During This Visit: yes Reason for Continuing Indwelling Catheter: Acute Urinary Retention or Obstruction Urinary Catheter Date of Insertion: 03/19/22 Urinary Catheter Time of Insertion: 14:28 Data 03/29/22 04:36 03/29/22 04:36 A&P Assessment and plan (1) JAMES (acute kidney injury): Nephrology following Good urine output Creatinine 4.3 today Strict I&Os Daily weights Avoid nephrotoxins Renally dose medications Fluid restriction, changed to 2 L Continue IV Lasix (2) Acute on chronic respiratory failure with hypoxia and hypercapnia: Continue acetylcysteine nebs Continue antibiotics Continue optimizing fluid balance Patient needs noninvasive ventilation (3) CHF (congestive heart failure): Acute on chronic diastolic heart failure with preserved ejection fraction Continue IV Lasix Qualifiers: Heart failure type: diastolic Heart failure chronicity: acute on chronic Qualified Code(s): I50.33 - Acute on chronic diastolic (congestive) heart failure (4) COPD (chronic obstructive pulmonary disease): With acute exacerbation Continue prednisone Continue Duonebs Tessalon Pulmonary toilet Chest x-ray reviewed, showing fluid overload and known pneumonia Qualifiers: COPD type: COPD with acute exacerbation Qualified Code(s): J44.1 - Chronic obstructive pulmonary disease with (acute) exacerbation (5) Anemia: Anemia of chronic disease Continue iron supplementation Conitnue to monitor Qualifiers: Anemia type: unspecified type Qualified Code(s): D64.9 - Anemia, unspecified (6) Hypotension: Continue midodrine (7) Hypokalemia: Replace potassium as needed (8) Pneumonia: Continue Levaquin (9) Atrial fibrillation: Continue amiodarone Qualifiers: Atrial fibrillation type: longstanding persistent Qualified Code(s): I48.11 - Longstanding persistent atrial fibrillation (10) SHERLEY (obstructive sleep apnea): He requires NIV (11) Dyslipidemia: Continue statin (12) BMI 50.0-59.9, adult: Would benefit from weight loss (13) Diabetes mellitus, type II: A.m. glucose slightly elevated, may need to increase Lantus slightly, will continue to monitor for now SSI Avoid hypoglycemia Qualifiers: Diabetes mellitus complication status: with hyperglycemia Diabetes mellitus terminal press operator insulin use: with terminal press operator use Qualified Code(s): E11.65 - Type 2 diabetes mellitus with hyperglycemia; Z79.4 - shelter (current) use of insulin (14) Diarrhea: Given history of C. difficile, prolonged hospitalization, and antibiotics will test for C. difficile again Plan DVT ppx: SCD Code status: DNR Attestations Medical Necessity Statement*: Patient requires ongoing hospitalization for IV Lasix, management of CHF, management of renal failure, and supplemental respiratory support. Coding Level of Care Code Acute Fire Alarm Dispatcher for [facility] Fwd Diagnoses JAMES (acute kidney injury) N17.9 Acute on chronic respiratory failure with hypoxia and hypercapnia J96.21; J96.22 CHF (congestive heart failure) I50.33 Heart failure type: diastolic Heart failure chronicity: acute on chronic COPD (chronic obstructive pulmonary disease) J44.1 COPD type: COPD with acute exacerbation Anemia D64.9 Anemia type: unspecified type Hypotension I95.9 Hypokalemia E87.6 Pneumonia J18.9 Atrial fibrillation I48.11 Atrial fibrillation type: longstanding persistent SHERLEY (obstructive sleep apnea) G47.33 Dyslipidemia E78.5 BMI 50.0-59.9, adult Z68.43 Diabetes mellitus, type II E11.65; Z79.4 Diabetes mellitus complication status: with hyperglycemia Diabetes mellitus terminal press operator insulin use: with [facility] use Diarrhea R19.7
[2022-03-29] MEDS: potassium chloride ER 20 mEq Tablet 40 MEQ PO (09:58)
[2022-03-29] MEDS: FUROsemide 40 mg Tablet PO ×2 (10:00→17:30)
[2022-03-29] MEDS: acetaZOLAMIDE 250 mg Tablet PO (10:00)
[2022-03-29] MEDS: amiodarone 200 mg Tablet PO (10:01)
[2022-03-29] MEDS: predniSONE 20 mg Tablet 40 MG PO (10:04)
[2022-03-29] MEDS: insulin glargine 100 units/1 mL 10 UNIT SUBCUT (10:07)
[2022-03-29] MEDS: pantoprazole 40 mg SDV IVP (10:09)
[2022-03-29] MEDS: ascorbic acid 500 mg Tablet PO (10:30)
[2022-03-29] MEDS: cholecalciferol (vitamin D3) 1,000 unit Tablet 2000 UNIT PO (10:30)
--- NOTE | 2022-03-29 10:49 | PC.NURSE ---
refused pt refused sponge bath and shower. He stated his would do it.
[2022-03-29 11:45] LABS: Glucose Point of Care 171 mg/dL (70-110)
[2022-03-29] MEDS: insulin lispro 100 unit/1 mL SUBCUT ×3 (12:33→21:37)
[2022-03-29 16:29] LABS: Glucose Point of Care 267 mg/dL (70-110)
[2022-03-29 21:00] LABS: Glucose Point of Care 319 mg/dL (70-110)
[2022-03-29] MEDS: levofloxacin-dextrose 5 % 750 MG/150 ML PREMIX 100 MG IV (21:36)
[2022-03-29] MEDS: ALPRAZolam 0.5 mg Tablet PO (21:36)
[2022-03-29] MEDS: duloxetine 60 mg Capsule PO (21:36)
[2022-03-29] MEDS: insulin glargine 100 units/1 mL 20 UNIT SUBCUT (21:36)
[2022-03-30] VITALS (15 sets, daily range): BP systolic 106–155; BP diastolic 71–85; PULSE 87–110; RESP 15–22; TEMP 36.4–36.9; O2SAT 93–100
[2022-03-30] MEDS: ipratropium-albuterol 3 mL Neb INHALATION (01:32)
[2022-03-30] MEDS: atorvastatin 40 mg Tablet 80 MG PO (04:08)
[2022-03-30] MEDS: midodrine 5 mg TABLET 10 MG PO (04:08)
[2022-03-30 05:09] LABS: Alanine Aminotransferase 16 U/L (0-41); Albumin Level 3.5 g/dL (3.5-5.2); Alkaline Phosphatase 54 U/L (40-130); Aspartate Amino Transferase 14 U/L (0-40); Blood Urea Nitrogen 78 mg/dL (8-23); Calcium 9.3 mg/dL (8.5-10.5); Carbon Dioxide 35 mmol/L (22-29); Chloride 100 mmol/L (98-107); Glomerular Filtration Rate 16.2 mL/min (90-130); Glucose 172 mg/dL (65-115); Osmolality Calculated 329 mOsm/kg (285-295); Sodium 146 mmol/L (136-145); Total Bilirubin 0.2 mg/dL (0.15-1.2); Total Protein 6.5 g/dL (6.6-8.7)
[2022-03-30 06:30] LABS: Glucose Point of Care 183 mg/dL (70-110)
[2022-03-30] MEDS: acetaZOLAMIDE 250 mg Tablet PO (08:19)
[2022-03-30] MEDS: predniSONE 20 mg Tablet 40 MG PO (08:19)
[2022-03-30] MEDS: cholecalciferol (vitamin D3) 1,000 unit Tablet 2000 UNIT PO (08:19)
[2022-03-30] MEDS: ascorbic acid 500 mg Tablet PO (08:19)
[2022-03-30] MEDS: amiodarone 200 mg Tablet PO (08:19)
[2022-03-30] MEDS: FUROsemide 40 mg Tablet PO ×2 (08:19→17:15)
[2022-03-30] MEDS: pantoprazole 40 mg SDV IVP (08:20)
[2022-03-30] MEDS: insulin glargine 100 units/1 mL 10 UNIT SUBCUT (08:23)
[2022-03-30] MEDS: insulin lispro 100 unit/1 mL SUBCUT ×4 (08:23→21:54)
--- NOTE | 2022-03-30 09:07 | P.PN_ITS ---
Subjective Subjective: Patient reports shortness of breath and edema are at his baseline. He reports continued diarrhea. Denies fevers, chills, nausea or emesis. Medications: Reviewed: Yes Medication Review Details: Current Medications Acetaminophen (Acetaminophen 325 Mg Tablet) 650 mg PO Q6H PRN PRN Reason: Mild/Mod Pain Or Temp >/= 101 Acetylcysteine (Mucomyst 200 Mg/Ml Sdv 30 Ml) 200 mg INHALATION Q6H.RESP [facility] Last Admin: 03/29/22 02:48 Dose: Not Given Albuterol/Ipratropium (Ipratropium-Albuterol 3 Ml Neb) 3 ml INHALATION Q6H [facility] Last Admin: 03/29/22 02:48 Dose: Not Given Alprazolam (Alprazolam 0.5 Mg Tablet) 0.5 mg PO BID PRN PRN Reason: ANXIETY Last Admin: 03/23/22 09:05 Dose: 0.5 mg Amiodarone HCl (Amiodarone 200 Mg Tablet) 200 mg PO DAILY [facility] Last Admin: 03/28/22 09:54 Dose: 200 mg Atorvastatin Calcium (Atorvastatin 40 Mg Tablet) 80 mg PO QAM [facility] Last Admin: 03/29/22 05:54 Dose: 80 mg Benzonatate (Benzonatate 100 Mg Capsule) 100 mg PO TID PRN PRN Reason: COUGH Budesonide (Budesonide 0.5 Mg/2 Ml Neb) 0.5 mg INHALATION BID.RESPIRATORY [facility] Last Admin: 03/28/22 21:43 Dose: Not Given Dextrose (Dextrose 50% Syringe 50 Ml) 25 ml IVP ONCE PRN; Protocol PRN Reason: hypoglycemia protocol Dextrose (Dextrose 50% Syringe 50 Ml) 50 ml IVP PRN PRN; Protocol PRN Reason: hypoglycemia protocol Duloxetine HCl (Duloxetine 60 Mg Capsule) 60 mg PO BEDTIME [facility] Last Admin: 03/28/22 20:41 Dose: 60 mg Ferrous Sulfate (Ferrous Sulfate 300 Mg/5 Ml Udc) 300 mg PO BIDWM [facility] Last Admin: 03/28/22 18:17 Dose: 300 mg Furosemide (Furosemide 10 Mg/Ml Sdv 10ml) 40 mg IVP Q24H [facility] Last Admin: 03/29/22 05:54 Dose: 40 mg Glucagon (Glucagon 1 Mg/Ml Inj 1 Ml) 1 mg IM ONCE PRN; Protocol PRN Reason: Adult Acute Hypoglycemia Prot. Dextrose (D5w) 500 mls @ 100 mls/hr IV ONCE PRN; Protocol PRN Reason: Adult Acute Hypoglycemia Prot Levofloxacin/Dextrose (Levaquin-D5w) 750 mg in 150 mls @ 100 mls/hr IV Q48H [facility]; Protocol Last Infusion: 03/27/22 22:18 Dose: Infused Insulin Glargine (Insulin Glargine 100 Units/1 Ml) 10 unit SUBCUT 0800 [facility] Insulin Glargine (Insulin Glargine 100 Units/1 Ml) 20 unit SUBCUT 2000 [facility] Last Admin: 03/28/22 20:41 Dose: 20 unit Insulin Human Lispro (Insulin Lispro 100 Unit/1 Ml) 0 unit SUBCUT WM&BEDTIME [facility]; Protocol Last Admin: 03/28/22 20:41 Dose: 10 unit Isosorbide Mononitrate (Isosorbide Mononitrate Er 30 Mg Tablet) 15 mg PO DAILY [facility] Last Admin: 03/21/22 08:29 Dose: 15 mg Midodrine (Midodrine 5 Mg Tablet) 10 mg PO Q6H [facility] Last Admin: 03/29/22 05:54 Dose: 10 mg Pantoprazole Sodium (Pantoprazole 40 Mg Sdv) 40 mg IVP DAILY [facility] Last Admin: 03/28/22 09:57 Dose: 40 mg Prednisone (Prednisone 20 Mg Tablet) 40 mg PO DAILY [facility] Last Admin: 03/28/22 09:55 Dose: 40 mg Sevelamer Carbonate (Sevelamer 800 Mg Tablet) 1,600 mg PO TID [facility] Last Admin: 03/28/22 20:41 Dose: 1,600 mg Vitals/I&O/Wt Last Vital Signs Temp 98.1 F 03/30/22 07:04 Pulse 102 H 03/30/22 08:00 Resp 18 03/30/22 08:00 BP 155/78 03/30/22 07:04 Pulse Ox 96 03/30/22 08:00 O2 Del Method 03/30/22 08:00 O2 Flow Rate 3 03/30/22 08:00 FiO2 30 03/30/22 01:33 03/29/22 03/30/22 03/30/22 22:59 06:59 14:59 Intake Total 240 / 840 550 / 1390 Output Total 1450 / 2450 600 / 3050 Balance -1210 / -1610 -50 / -1660 Physical Exam Const: OTHER: General: Patient is awake and alert. Sitting in bedside chair. Head: Normocephalic. Atraumatic. Neck: No JVD. Cardiovascular: RRR. No gallops. No murmurs. 3+ lower extremity edema, unchanged to prior exams. Lungs: Breath sounds diminished in bilateral bases, no use of accessory muscles, no crackles or wheezes. Skin: No jaundice. No rashes. Abdomen: Normal bowel sounds, abdomen soft and nontender. Genito Urinary: Genital exam not performed since complaints not related. Rectal: Rectal exam not performed since no symptoms indicated blood loss. Extremities: No cyanosis or clubbing. Musculoskeletal: No swollen or erythematous joints. Neurological: Moves all 4 extremities. No myoclonus. Urinary Catheter Management: Lord: Cath Placed During This Visit: yes Reason for Continuing Indwelling Catheter: Accurate Measurement of Urinary Output in Critically Ill Patients Urinary Catheter Date of Insertion: 03/19/22 Urinary Catheter Time of Insertion: 14:28 Data 03/29/22 04:36 03/30/22 04:32 A&P Assessment and plan (1) JAMES (acute kidney injury): Nephrology following Creatinine 3.8 Strict I&Os Daily weights Avoid nephrotoxins Renally dose medications 2L fluid restriction Continue IV Lasix (2) Acute on chronic respiratory failure with hypoxia and hypercapnia: Continue acetylcysteine nebs Continue antibiotics Continue optimizing fluid balance Patient needs noninvasive ventilation, case management helping (3) CHF (congestive heart failure): Acute on chronic diastolic heart failure with preserved ejection fraction Continue IV Lasix Qualifiers: Heart failure type: diastolic Heart failure chronicity: acute on chronic Qualified Code(s): I50.33 - Acute on chronic diastolic (congestive) heart failure (4) COPD (chronic obstructive pulmonary disease): With acute exacerbation Continue prednisone Continue Duonebs Tessalon Pulmonary toilet Qualifiers: COPD type: COPD with acute exacerbation Qualified Code(s): J44.1 - Chronic obstructive pulmonary disease with (acute) exacerbation (5) Anemia: Anemia of chronic disease Continue iron supplementation Conitnue to monitor Qualifiers: Anemia type: unspecified type Qualified Code(s): D64.9 - Anemia, unspecified (6) Hypotension: Continue midodrine (7) Hypokalemia: Replace potassium as needed (8) Pneumonia: Continue Levaquin (9) Atrial fibrillation: Continue amiodarone Qualifiers: Atrial fibrillation type: longstanding persistent Qualified Code(s): I48.11 - Longstanding persistent atrial fibrillation (10) SHERLEY (obstructive sleep apnea): He requires NIV (11) Dyslipidemia: Continue statin (12) BMI 50.0-59.9, adult: Would benefit from weight loss (13) Diabetes mellitus, type II: Continue Lantus SSI Avoid hypoglycemia Qualifiers: Diabetes mellitus complication status: with hyperglycemia Diabetes mellitus care home insulin use: with care home use Qualified Code(s): E11.65 - Type 2 diabetes mellitus with hyperglycemia; Z79.4 - prison (current) use of insulin (14) Diarrhea: C diff pending Plan DVT ppx: SCD Code status: DNR Attestations Medical Necessity Statement*: Patient requires ongoing hospitalization for IV Lasix, management of CHF, management of renal failure, and supplemental respiratory support. Coding Level of Care Code Acute Manager Java for [facility] Fwd Diagnoses JAMES (acute kidney injury) N17.9 Acute on chronic respiratory failure with hypoxia and hypercapnia J96.21; J96.22 CHF (congestive heart failure) I50.33 Heart failure type: diastolic Heart failure chronicity: acute on chronic COPD (chronic obstructive pulmonary disease) J44.1 COPD type: COPD with acute exacerbation Anemia D64.9 Anemia type: unspecified type Hypotension I95.9 Hypokalemia E87.6 Pneumonia J18.9 Atrial fibrillation I48.11 Atrial fibrillation type: longstanding persistent SHERLEY (obstructive sleep apnea) G47.33 Dyslipidemia E78.5 BMI 50.0-59.9, adult Z68.43 Diabetes mellitus, type II E11.65; Z79.4 Diabetes mellitus complication status: with hyperglycemia Diabetes mellitus care home insulin use: with buttermilk drier operator use Diarrhea R19.7
[2022-03-30 11:11] LABS: Glucose Point of Care 226 mg/dL (70-110)
--- NOTE | 2022-03-30 12:09 | PC.SOCIAL ---
IMM Updated Updated pt on IMM. No questions voiced. Provided pt a copy. Initialed, dated, & timed copy in chart.
--- NOTE | 2022-03-30 12:11 | PM.PN ---
Subjective Subjective: he has no complaints Medications: Medication Review Details: furosemide 40 mg BID po, diamox 250 mg daily Vitals/I&O/Wt Last Vital Signs Temp 97.8 F 03/30/22 11:46 Pulse 90 03/30/22 11:46 Resp 18 03/30/22 11:46 BP 133/85 03/30/22 11:46 Pulse Ox 97 03/30/22 11:46 O2 Del Method 03/30/22 11:46 O2 Flow Rate 3 03/30/22 11:46 FiO2 30 03/30/22 01:33 03/29/22 03/30/22 03/30/22 22:59 06:59 14:59 Intake Total 240 / 840 550 / 1390 Output Total 1450 / 2450 600 / 3050 Balance -1210 / -1610 -50 / -1660 Physical Exam Const: COMMON NORMALS: no acute distress Extremity: GENERAL: Yes edema (3+ including scrotum/penis, + monterroso) Urinary Catheter Management: [place]ro[place]: Cath Placed During This Visit: yes Reason for Continuing Indwelling Catheter: Accurate Measurement of Urinary Output in Critically Ill Patients Urinary Catheter Date of Insertion: 03/19/22 Urinary Catheter Time of Insertion: 14:28 Data 03/29/22 04:36 03/30/22 04:32 Other Labs: Ca 9.4, phos 4, Mg 2.0 A&P Assessment and plan (1) JAMES (acute kidney injury): seen via telemedicine with assistance of RN at bedside Plan 1. Acute kidney injury- improving. No acute indication for dialysis 2. Chronic kidney disease stage 3- from obesity, htn, dm -large kidneys on us 3. Hypercapneic respiratory failure, volume overload 4. Anemia-Hb stable Recommend: continue fluid restriction. furosemide dose can be increased as necessary Attestations Medical Necessity Statement*: see above Time Spent in Patient Care: 16 - 35 minutes Coding Level of Care Code Acute Computer Systems Information Director for [facility] Diagnoses JAMES (acute kidney injury) N17.9
[2022-03-30 17:14] LABS: Glucose Point of Care 389 mg/dL (70-110)
[2022-03-30] MEDS: metoprolol tartrate 1 mg/1 mL SDV 5 mL 2.5 MG IVP (17:15)
[2022-03-30 21:20] LABS: Glucose Point of Care 358 mg/dL (70-110)
[2022-03-30] MEDS: duloxetine 60 mg Capsule PO (21:53)
[2022-03-30] MEDS: insulin glargine 100 units/1 mL 20 UNIT SUBCUT (21:54)
[2022-03-31] VITALS (11 sets, daily range): BP systolic 104–140; BP diastolic 68–89; PULSE 85–116; RESP 15–20; TEMP 36.6–37; O2SAT 95–99
[2022-03-31] MEDS: midodrine 5 mg TABLET 10 MG PO ×2 (00:55→05:53)
[2022-03-31 05:04] LABS: Alanine Aminotransferase 15 U/L (0-41); Albumin Level 3.4 g/dL (3.5-5.2); Alkaline Phosphatase 49 U/L (40-130); Anion Gap 12.6 (5-19); Aspartate Amino Transferase 12 U/L (0-40); Blood Urea Nitrogen 68 mg/dL (8-23); Calcium 9.3 mg/dL (8.5-10.5); Carbon Dioxide 37 mmol/L (22-29); Chloride 100 mmol/L (98-107); Globulin 2.5 g/dL (1.3-4.6); Glomerular Filtration Rate 17.3 mL/min (90-130); Glucose 84 mg/dL (65-115); Osmolality Calculated 321 mOsm/kg (285-295); Phosphorus 3.9 mg/dL (2.5-4.5); Potassium 3.6 mmol/L (3.5-5.1); Sodium 146 mmol/L (136-145); Total Bilirubin 0.2 mg/dL (0.15-1.2); Total Protein 5.9 g/dL (6.6-8.7)
[2022-03-31] MEDS: atorvastatin 40 mg Tablet 80 MG PO (05:53)
[2022-03-31 06:34] LABS: Glucose Point of Care 91 mg/dL (70-110)
[2022-03-31] MEDS: predniSONE 20 mg Tablet 40 MG PO (08:04)
[2022-03-31] MEDS: amiodarone 200 mg Tablet PO (08:04)
[2022-03-31] MEDS: acetaZOLAMIDE 250 mg Tablet PO (08:04)
[2022-03-31] MEDS: cholecalciferol (vitamin D3) 1,000 unit Tablet 2000 UNIT PO (08:04)
[2022-03-31] MEDS: pantoprazole 40 mg SDV IVP (08:04)
[2022-03-31] MEDS: ascorbic acid 500 mg Tablet PO (08:04)
[2022-03-31] MEDS: insulin glargine 100 units/1 mL 10 UNIT SUBCUT (08:09)
[2022-03-31] MEDS: FUROsemide 40 mg Tablet PO (08:09)
[2022-03-31] MEDS: metoprolol tartrate 1 mg/1 mL SDV 5 mL 2.5 MG IVP ×2 (08:58→15:40)
--- NOTE | 2022-03-31 11:53 | P.PN_ITS ---
Subjective Subjective: OOB to chair. reports watery clear BMs, 2 every AM Vitals/I&O/Wt Last Vital Signs Temp 98.1 F 03/31/22 04:00 Pulse 105 H 03/31/22 11:17 Resp 18 03/31/22 11:17 BP 140/89 03/31/22 11:17 Pulse Ox 99 03/31/22 11:17 O2 Del Method 03/31/22 07:30 O2 Flow Rate 3 03/31/22 07:30 FiO2 30 03/31/22 03:47 03/30/22 03/31/22 03/31/22 22:59 06:59 14:59 Intake Total 480 / 720 360 / 360 Output Total 1925 / 1925 600 / 2525 Balance -1445 / -1205 -600 / -1805 360 / 360 Physical Exam Const: COMMON NORMALS: no acute distress and alert GENERAL APPEARANCE: cooperative Resp: COMMON NORMALS: clear to auscultation bilaterally AUSCULTATION: clear to auscultation bilaterally Cardio: COMMON NORMALS: regular rate and regular rhythm RATE: regular rate RHYTHM: regular rhythm Extremity: NARRATIVE EXTREMITY EXAM: 3+ bilateral edema, right leg > left Neuro: SENSORIUM/ORIENTATION: Yes alert Urinary Catheter Management: [place]ro[place]: Cath Placed During This Visit: yes Reason for Continuing Indwelling Catheter: Acute Urinary Retention or Obstruction Urinary Catheter Date of Insertion: 03/19/22 Urinary Catheter Time of Insertion: 14:28 Data 03/29/22 04:36 03/31/22 04:32 Other Labs: Ca 9.3, phos 3.9, Mg 2 Micro: Microbiology 03/29/22 19:25 C.difficile Toxin B Gene (PCR) - Final Stool - Stool Aspirate C diff neg A&P Assessment and plan (1) JAMES (acute kidney injury): seen via telemedicine with assistance of RN at bedside Plan 1. Acute kidney injury- improving. Good urine output. No acute indication for dialysis 2. Chronic kidney disease stage 3- from obesity, htn, dm -large kidneys on us 3. Volume overload. Increase furosemide 4. Metabolic alkalosis (resp acidosis), hypercapnea, hypokalemia. Replace KcL, continue diamox 5. Mild hypernatremia, stable Recommend: continue fluid restriction. discontinue monterroso and oral iron. Evaluate bowel movement issue Attestations Medical Necessity Statement*: see above Time Spent in Patient Care: 16 - 35 minutes Coding Level of Care Code Acute Vamp Throater for [facility] Fwd Diagnoses JAEMS (acute kidney injury) N17.9
[2022-03-31 12:01] LABS: Glucose Point of Care 175 mg/dL (70-110)
[2022-03-31] MEDS: insulin lispro 100 unit/1 mL SUBCUT ×3 (12:21→21:32)
[2022-03-31] MEDS: FUROsemide 40 mg Tablet 80 MG PO (15:40)
[2022-03-31] MEDS: potassium chloride ER 20 mEq Tablet PO (15:40)
[2022-03-31 17:22] LABS: Glucose Point of Care 303 mg/dL (70-110)
--- NOTE | 2022-03-31 17:59 | PM.PN ---
Subjective Subjective: Patient reports ongoing loose stools. Spouse describes him as clear actually. He reports his edema and shortness of breath seem to be at his normal baseline. Reports adequate oral intake. He denies nausea, emesis, chest pain or abdominal pains. Medications: Reviewed: Yes Vitals/I&O/Wt Last Vital Signs Temp 98.6 F 03/31/22 15:57 Pulse 101 H 03/31/22 15:57 Resp 17 03/31/22 15:57 BP 124/68 03/31/22 15:57 Pulse Ox 95 03/31/22 15:57 O2 Del Method 03/31/22 07:30 O2 Flow Rate 3 03/31/22 07:30 FiO2 30 03/31/22 03:47 03/31/22 03/31/22 03/31/22 06:59 14:59 22:59 Intake Total 360 / 360 Output Total 600 / 2525 125 / 125 Balance -600 / -1805 235 / 235 Physical Exam Const: OTHER: General: Patient is awake and alert. Sitting in on edge of bed Head: Normocephalic. Atraumatic. Neck: No JVD. Cardiovascular: RRR. No gallops. No murmurs. 3+ lower extremity edema, similar to prior exams Lungs: Breath sounds diminished in bilateral bases, no use of accessory muscles, no crackles or wheezes. Skin: No jaundice. No rashes. Abdomen: Normal bowel sounds, abdomen soft and nontender. Genito Urinary: Genital exam not performed since complaints not related. Rectal: Rectal exam not performed since no symptoms indicated blood loss. Extremities: No cyanosis or clubbing. Musculoskeletal: No swollen or erythematous joints. Neurological: Moves all 4 extremities. No myoclonus. Urinary Catheter Management: Lord: Cath Placed During This Visit: yes Reason for Continuing Indwelling Catheter: Acute Urinary Retention or Obstruction Urinary Catheter Date of Insertion: 03/19/22 Urinary Catheter Time of Insertion: 14:28 Data 03/29/22 04:36 03/31/22 04:32 Micro: Microbiology 03/29/22 19:25 C.difficile Toxin B Gene (PCR) - Final Stool - Stool Aspirate A&P Assessment and plan (1) JAMES (acute kidney injury): Nephrology following Creatinine 3.6, mild improvement in BUN Strict I&Os Daily weights Avoid nephrotoxins Renally dose medications Continue fluid restriction Continue IV Lasix, dose adjusted by nephrology today (2) Acute on chronic respiratory failure with hypoxia and hypercapnia: Continue acetylcysteine nebs Continue antibiotics Continue optimizing fluid balance Patient needs noninvasive ventilation, case management helping, would like to trial before discharge (3) CHF (congestive heart failure): Acute on chronic diastolic heart failure with preserved ejection fraction Continue IV Lasix Qualifiers: Heart failure type: diastolic Heart failure chronicity: acute on chronic Qualified Code(s): I50.33 - Acute on chronic diastolic (congestive) heart failure (4) COPD (chronic obstructive pulmonary disease): With acute exacerbation Continue prednisone Continue Duonebs Tessalon Pulmonary toilet Qualifiers: COPD type: COPD with acute exacerbation Qualified Code(s): J44.1 - Chronic obstructive pulmonary disease with (acute) exacerbation (5) Anemia: Anemia of chronic disease Continue iron supplementation Conitnue to monitor Qualifiers: Anemia type: unspecified type Qualified Code(s): D64.9 - Anemia, unspecified (6) Hypotension: Continue midodrine, may be able to wean off as blood pressure seems to be improving (7) Hypokalemia: Replace potassium as needed (8) Pneumonia: Continue Levaquin (9) Atrial fibrillation: Complicated by a rapid ventricular rate today Continue amiodarone Required IV push metoprolol with improvement Qualifiers: Atrial fibrillation type: longstanding persistent Qualified Code(s): I48.11 - Longstanding persistent atrial fibrillation (10) SHERLEY (obstructive sleep apnea): He requires NIV, case management trying to arrange (11) Dyslipidemia: Continue statin (12) BMI 50.0-59.9, adult: Would benefit from weight loss (13) Diabetes mellitus, type II: Continue Lantus SSI Avoid hypoglycemia Qualifiers: Diabetes mellitus complication status: with hyperglycemia Diabetes mellitus crematorium operator insulin use: with longterm use Qualified Code(s): E11.65 - Type 2 diabetes mellitus with hyperglycemia; Z79.4 - cork pressing machine operator (current) use of insulin (14) Diarrhea: C diff pending Plan DVT ppx: SCD Code status: DNR Attestations Medical Necessity Statement*: Patient requires ongoing hospitalization for IV Lasix, management of CHF, management of renal failure, and supplemental respiratory support. Coding Level of Care Code Acute Ramp Attendant for [facility] Diagnoses JAMES (acute kidney injury) N17.9 Acute on chronic respiratory failure with hypoxia and hypercapnia J96.21; J96.22 CHF (congestive heart failure) I50.33 Heart failure type: diastolic Heart failure chronicity: acute on chronic COPD (chronic obstructive pulmonary disease) J44.1 COPD type: COPD with acute exacerbation Anemia D64.9 Anemia type: unspecified type Hypotension I95.9 Hypokalemia E87.6 Pneumonia J18.9 Atrial fibrillation I48.11 Atrial fibrillation type: longstanding persistent SHERLEY (obstructive sleep apnea) G47.33 Dyslipidemia E78.5 BMI 50.0-59.9, adult Z68.43 Diabetes mellitus, type II E11.65; Z79.4 Diabetes mellitus complication status: with hyperglycemia Diabetes mellitus longterm insulin use: with longterm use Diarrhea R19.7
[2022-03-31] MEDS: levofloxacin-dextrose 5 % 750 MG/150 ML PREMIX 100 MG IV (20:45)
[2022-03-31] MEDS: duloxetine 60 mg Capsule PO (20:49)
[2022-03-31 21:21] LABS: Glucose Point of Care 248 mg/dL (70-110)
[2022-03-31] MEDS: insulin glargine 100 units/1 mL 20 UNIT SUBCUT (21:33)
[2022-04-01] VITALS (11 sets, daily range): BP systolic 113–140; BP diastolic 73–91; PULSE 88–152; RESP 16–19; TEMP 36.4–37.1; O2SAT 94–100
[2022-04-01] MEDS: midodrine 5 mg TABLET 10 MG PO ×2 (00:21→06:31)
[2022-04-01 04:28] LABS: Alanine Aminotransferase 22 U/L (0-41); Albumin Level 3.8 g/dL (3.5-5.2); Alkaline Phosphatase 59 U/L (40-130); Aspartate Amino Transferase 16 U/L (0-40); Blood Urea Nitrogen 65 mg/dL (8-23); Calcium 9.6 mg/dL (8.5-10.5); Carbon Dioxide 37 mmol/L (22-29); Chloride 100 mmol/L (98-107); Globulin 2.8 g/dL (1.3-4.6); Glomerular Filtration Rate 17.8 mL/min (90-130); Glucose 195 mg/dL (65-115); Osmolality Calculated 328 mOsm/kg (285-295); Phosphorus 3.6 mg/dL (2.5-4.5); Sodium 147 mmol/L (136-145); Total Bilirubin 0.2 mg/dL (0.15-1.2); Total Protein 6.6 g/dL (6.6-8.7)
[2022-04-01] MEDS: atorvastatin 40 mg Tablet 80 MG PO (06:31)
[2022-04-01 06:34] LABS: Glucose Point of Care 235 mg/dL (70-110)
--- NOTE | 2022-04-01 06:40 | P.PN_ITS ---
Subjective Subjective: no new complaints monterroso removed, reports no difficulty voiding, RN reports urine output not record ed accurately Vitals/I&O/Wt Last Vital Signs Temp 97.5 F L 04/01/22 04:00 Pulse 115 H 04/01/22 04:00 Resp 18 04/01/22 04:00 BP 140/84 04/01/22 04:00 Pulse Ox 96 04/01/22 04:00 O2 Del Method 03/31/22 20:56 O2 Flow Rate 3 03/31/22 20:56 FiO2 30 03/31/22 03:47 03/31/22 03/31/22 04/01/22 14:59 22:59 06:59 Intake Total 360 / 360 390 / 750 Output Total 125 / 125 500 / 625 Balance 235 / 235 -110 / 125 Physical Exam Const: COMMON NORMALS: no acute distress and alert Extremity: GENERAL: Yes edema Neuro: SENSORIUM/ORIENTATION: Yes alert Urinary Catheter Management: [place]terroso: Cath Placed During This Visit: yes Reason for Continuing Indwelling Catheter: Acute Urinary Retention or Obstruction Urinary Catheter Date of Insertion: 03/19/22 Urinary Catheter Time of Insertion: 14:28 Data 03/29/22 04:36 04/01/22 03:05 Other Labs: LFT normal, Ca 9.6, phos 3.6, Mg 2.0 Micro: Microbiology 03/29/22 19:25 C.difficile Toxin B Gene (PCR) - Final Stool - Stool Aspirate A&P Assessment and plan (1) JAMES (acute kidney injury): seen via telemedicine with assistance of RN at bedside Plan 1. Acute kidney injury- improving. Good urine output. No acute indication for dialysis 2. Chronic kidney disease stage 3- from obesity, htn, dm -large kidneys on us 3. Volume overload. furosemide dose increased yesterday 4. Metabolic alkalosis (resp acidosis), hypercapnea, hypokalemia. continue di amox and KCl 5. Mild hypernatremia, stable Recommend: continue fluid restriction. bladder scan Attestations Medical Necessity Statement*: per primary service Time Spent in Patient Care: 16 - 35 minutes Coding Level of Care Code Acute Microwave Technician for [facility] Fw Diagnoses JAMES (acute kidney injury) N17.9
[2022-04-01] MEDS: cholecalciferol (vitamin D3) 1,000 unit Tablet 2000 UNIT PO (09:39)
[2022-04-01] MEDS: insulin lispro 100 unit/1 mL SUBCUT ×4 (09:40→21:23)
[2022-04-01] MEDS: acetaZOLAMIDE 250 mg Tablet PO (09:41)
[2022-04-01] MEDS: FUROsemide 40 mg Tablet 80 MG PO ×2 (09:41→16:06)
[2022-04-01] MEDS: potassium chloride ER 20 mEq Tablet PO (09:41)
[2022-04-01] MEDS: amiodarone 200 mg Tablet PO (09:41)
[2022-04-01] MEDS: predniSONE 20 mg Tablet 40 MG PO (09:41)
[2022-04-01] MEDS: ascorbic acid 500 mg Tablet PO (09:41)
[2022-04-01] MEDS: pantoprazole 40 mg SDV IVP (09:46)
[2022-04-01] MEDS: insulin glargine 100 units/1 mL 10 UNIT SUBCUT (09:47)
--- NOTE | 2022-04-01 10:18 | P.PN_ITS ---
Subjective Subjective: Patient reports diarrhea has improved. Reports normal bowel movement this morning. Reports shortness of breath and edema are about the same. He wore his NIV last night. Reports it has less flow than the hospital machine but otherwise did well with it. Denies nausea, emesis, abdominal pain or headache. Medications: Reviewed: Yes Vitals/I&O/Wt Last Vital Signs Temp 98.1 F 04/01/22 07:49 Pulse 101 H 04/01/22 07:49 Resp 18 04/01/22 07:49 BP 137/73 04/01/22 07:49 Pulse Ox 98 04/01/22 07:49 O2 Del Method 04/01/22 07:49 O2 Flow Rate 3 04/01/22 08:00 FiO2 30 03/31/22 03:47 03/31/22 04/01/22 04/01/22 22:59 06:59 14:59 Intake Total 390 / 750 600 / 1350 Output Total 500 / 625 Balance -110 / 125 600 / 725 Physical Exam Const: OTHER: General: Patient is awake and alert. Head: Normocephalic. Atraumatic. Neck: No JVD. Cardiovascular: RRR. No gallops. No murmurs. 3+ lower extremity edema. Lungs: Breath sounds diminished in bilateral bases, no use of accessory muscles, no crackles or wheezes. Skin: No jaundice. No rashes. Abdomen: Normal bowel sounds, abdomen soft and nontender. Genito Urinary: Genital exam not performed since complaints not related. Rectal: Rectal exam not performed since no symptoms indicated blood loss. Extremities: No cyanosis or clubbing. Musculoskeletal: No swollen or erythematous joints. Neurological: Moves all 4 extremities. No myoclonus. Urinary Catheter Management: Lord: Cath Placed During This Visit: yes Reason for Continuing Indwelling Catheter: Acute Urinary Retention or Obstruction Urinary Catheter Date of Insertion: 03/19/22 Urinary Catheter Time of Insertion: 14:28 Data 03/29/22 04:36 04/01/22 03:05 Micro: Microbiology 03/29/22 19:25 C.difficile Toxin B Gene (PCR) - Final Stool - Stool Aspirate A&P Assessment and plan (1) JAMES (acute kidney injury): Nephrology following Strict I&Os Daily weights Avoid nephrotoxins Renally dose medications Continue fluid restriction Continue IV Lasix, dose adjusted by nephrology today again (2) Acute on chronic respiratory failure with hypoxia and hypercapnia: Continue acetylcysteine nebs Continue antibiotics Continue optimizing fluid balance Continue NIV (3) CHF (congestive heart failure): Acute on chronic diastolic heart failure with preserved ejection fraction Continue IV Lasix Qualifiers: Heart failure type: diastolic Heart failure chronicity: acute on chronic Qualified Code(s): I50.33 - Acute on chronic diastolic (congestive) heart failure (4) COPD (chronic obstructive pulmonary disease): With acute exacerbation Continue prednisone Continue Duonebs Tessalon Pulmonary toilet Qualifiers: COPD type: COPD with acute exacerbation Qualified Code(s): J44.1 - Chronic obstructive pulmonary disease with (acute) exacerbation (5) Anemia: Anemia of chronic disease Continue iron supplementation Conitnue to monitor Qualifiers: Anemia type: unspecified type Qualified Code(s): D64.9 - Anemia, unspecified (6) Hypotension: Attempt to wean off midodrine today (7) Hypokalemia: Replace potassium as needed (8) Pneumonia: Continue Levaquin (9) Atrial fibrillation: Has had intermittent RVR Continue amiodarone Qualifiers: Atrial fibrillation type: longstanding persistent Qualified Code(s): I48.11 - Longstanding persistent atrial fibrillation (10) SHERLEY (obstructive sleep apnea): Continue NIV while sleeping (11) Dyslipidemia: Continue statin (12) BMI 50.0-59.9, adult: Would benefit from weight loss (13) Diabetes mellitus, type II: Continue Lantus SSI Avoid hypoglycemia Qualifiers: Diabetes mellitus complication status: with hyperglycemia Diabetes mellitus exterminator helper insulin use: with exterminator helper use Qualified Code(s): E11.65 - Type 2 diabetes mellitus with hyperglycemia; Z79.4 - exterminator helper termite (current) use of insulin (14) Diarrhea: C diff negative Symptoms improving Imodium PRN Plan DVT ppx: SCD Code status: DNR Attestations Medical Necessity Statement*: Patient requires ongoing hospitalization for IV Lasix, management of CHF, management of renal failure, and supplemental respiratory support. 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 [employer] Diagnoses JAMES (acute kidney injury) N17.9 Acute on chronic respiratory failure with hypoxia and hypercapnia J96.21; J96.22 CHF (congestive heart failure) I50.33 Heart failure type: diastolic Heart failure chronicity: acute on chronic COPD (chronic obstructive pulmonary disease) J44.1 COPD type: COPD with acute exacerbation Anemia D64.9 Anemia type: unspecified type Hypotension I95.9 Hypokalemia E87.6 Pneumonia J18.9 Atrial fibrillation I48.11 Atrial fibrillation type: longstanding persistent SHERLEY (obstructive sleep apnea) G47.33 Dyslipidemia E78.5 BMI 50.0-59.9, adult Z68.43 Diabetes mellitus, type II E11.65; Z79.4 Diabetes mellitus complication status: with hyperglycemia Diabetes mellitus exterminator helper insulin use: with usp use Diarrhea R19.7
[2022-04-01 11:21] LABS: Glucose Point of Care 184 mg/dL (70-110)
[2022-04-01 16:42] LABS: Glucose Point of Care 205 mg/dL (70-110)
[2022-04-01] MEDS: duloxetine 60 mg Capsule PO (20:06)
[2022-04-01 20:55] LABS: Glucose Point of Care 250 mg/dL (70-110)
[2022-04-01] MEDS: insulin glargine 100 units/1 mL 20 UNIT SUBCUT (21:23)
[2022-04-02] VITALS (13 sets, daily range): BP systolic 99–130; BP diastolic 58–93; PULSE 79–139; RESP 15–18; TEMP 36.5–37; O2SAT 94–99
--- NOTE | 2022-04-02 02:01 | PC.NURSE ---
URINE RETENTION/[place] Pt had c/o feeling like he needed to urinate but unable to do so. Wasn't quite sure of how long it had been since he went but says was sometime yesterday Bladder scan was done and showed 757ml urine present in bladder. Dr Cordero was notified with order to place [place] and leave in. This was done and had a return of 900ml clear pale yellow urine
[2022-04-02 04:25] LABS: Albumin Level 3.2 g/dL (3.5-5.2); Anion Gap 9.4 (5-19); Blood Urea Nitrogen 61 mg/dL (8-23); Calcium 9.1 mg/dL (8.5-10.5); Carbon Dioxide 36 mmol/L (22-29); Chloride 93 mmol/L (98-107); Glomerular Filtration Rate 20.5 mL/min (90-130); Glucose 202 mg/dL (65-115); Magnesium 1.8 mg/dL (1.7-2.3); Phosphorus 3.5 mg/dL (2.5-4.5); Potassium 3.4 mmol/L (3.5-5.1); Sodium 135 mmol/L (136-145)
[2022-04-02] MEDS: atorvastatin 40 mg Tablet 80 MG PO (05:17)
[2022-04-02 06:22] LABS: Glucose Point of Care 170 mg/dL (70-110)
[2022-04-02 07:32] LABS: Basophils % 0.1 %; Eosinophils # 0.1 10^3/uL (0.0-0.8); Eosinophils % 0.7 %; Hematocrit 31.1 % (42.0-52.0); Hemoglobin 9.1 g/dL (11.7-16.6); Lymphocytes # 1.6 10^3/uL (0.8-4.8); Lymphocytes % 14.3 %; Mean Corpuscular HGB Conc 29.3 g/dL (30.0-36.0); Mean Corpuscular Hemoglobin 28.6 pg (28.0-34.0); Mean Corpuscular Volume 97.8 fl (80-94); Mean Platelet Volume 12.5 fL (7.4-10.4); Monocytes # 0.8 10^3/uL (0.2-0.9); Monocytes % 7.3 %; Neutrophils # 8.78 10^3/uL (1.8-7.7); Neutrophils % 77.2 %; Nucleated Red Blood Cells % 0 %; Platelet Count 159 10^3/cmm (130-400); Red Blood Count 3.18 10^6/uL (4.1-5.3); White Blood Count 11.4 10^3/uL (4.0-10.0)
[2022-04-02] MEDS: pantoprazole 40 mg SDV IVP (08:48)
[2022-04-02] MEDS: cholecalciferol (vitamin D3) 1,000 unit Tablet 2000 UNIT PO (09:22)
--- NOTE | 2022-04-02 09:22 | PM.PN ---
Subjective Subjective: Patient reports bowel movements have normalized. Reports urinary retention over night for which a Lord catheter was placed. Tolerating his NIV well at night. Reports shortness of breath and lower extremity edema are at baseline. Denies nausea, emesis, abdominal pain or chest pain. Medications: Reviewed: Yes Vitals/I&O/Wt Last Vital Signs Temp 97.7 F 04/02/22 08:00 Pulse 93 04/02/22 08:00 Resp 18 04/02/22 08:00 BP 130/93 04/02/22 08:00 Pulse Ox 98 04/02/22 08:00 O2 Del Method 04/02/22 08:00 O2 Flow Rate 3 04/02/22 07:24 FiO2 30 03/31/22 03:47 04/01/22 04/02/22 04/02/22 22:59 06:59 14:59 Intake Total 120 / 480 950 / 1430 Output Total 1200 / 1200 Balance 120 / 480 -250 / 230 Physical Exam Const: OTHER: General: Patient is awake and alert. Lying in bed. Head: Normocephalic. Atraumatic. Neck: No JVD. Cardiovascular: RRR. No gallops. No murmurs. 3+ lower extremity edema. Lungs: Breath sounds diminished in bilateral bases, no use of accessory muscles, no crackles or wheezes. On nasal canula. Skin: No jaundice. No rashes. Abdomen: Normal bowel sounds, abdomen soft and nontender. Genito Urinary: Genital exam not performed since complaints not related. Rectal: Rectal exam not performed since no symptoms indicated blood loss. Extremities: No cyanosis or clubbing. Musculoskeletal: No swollen or erythematous joints. Neurological: Moves all 4 extremities. No myoclonus. Urinary Catheter Management: Lord: Cath Placed During This Visit: yes Reason for Continuing Indwelling Catheter: Acute Urinary Retention or Obstruction Urinary Catheter Date of Insertion: 04/02/22 Urinary Catheter Time of Insertion: 01:45 Data 04/02/22 03:41 04/02/22 03:41 A&P Assessment and plan (1) JAMES (acute kidney injury): Nephrology following Cr improving, 3.1 today Strict I&Os Daily weights Avoid nephrotoxins Renally dose medications Continue fluid restriction Continue oral Lasix (2) Acute on chronic respiratory failure with hypoxia and hypercapnia: Continue acetylcysteine nebs Continue antibiotics Continue optimizing fluid balance Continue NIV (3) CHF (congestive heart failure): Acute on chronic diastolic heart failure with preserved ejection fraction Continue Lasix Qualifiers: Heart failure type: diastolic Heart failure chronicity: acute on chronic Qualified Code(s): I50.33 - Acute on chronic diastolic (congestive) heart failure (4) COPD (chronic obstructive pulmonary disease): With acute exacerbation Discontinue prednisone Continue Duonebs Tessalon Pulmonary toilet Qualifiers: COPD type: COPD with acute exacerbation Qualified Code(s): J44.1 - Chronic obstructive pulmonary disease with (acute) exacerbation (5) Anemia: Anemia of chronic disease Continue iron supplementation Conitnue to monitor Qualifiers: Anemia type: unspecified type Qualified Code(s): D64.9 - Anemia, unspecified (6) Hypotension: Now off midodrine Continue to mointor (7) Hypokalemia: Continue potassium replacement (8) Pneumonia: Continue Levaquin (9) Atrial fibrillation: Has had intermittent RVR Continue amiodarone Qualifiers: Atrial fibrillation type: longstanding persistent Qualified Code(s): I48.11 - Longstanding persistent atrial fibrillation (10) SHERLEY (obstructive sleep apnea): Continue NIV while sleeping (11) Dyslipidemia: Continue statin (12) BMI 50.0-59.9, adult: Would benefit from weight loss (13) Diabetes mellitus, type II: Continue Lantus SSI Avoid hypoglycemia Qualifiers: Diabetes mellitus complication status: with hyperglycemia Diabetes mellitus emergency room technician insulin use: with emergency room technician use Qualified Code(s): E11.65 - Type 2 diabetes mellitus with hyperglycemia; Z79.4 - [facility] (current) use of insulin (14) Diarrhea: C diff negative Imodium PRN Resolved (15) Urinary retention: Lord placed overnight Spouse report prior history of urinary retention Start Flomax Plan DVT ppx: SCD Code status: DNR Attestations Medical Necessity Statement*: Patient requires ongoing hospitalization for electrolyte monitoring, management of CHF, management of renal failure, and supplemental respiratory support. 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 [employer] Diagnoses JAMES (acute kidney injury) N17.9 Acute on chronic respiratory failure with hypoxia and hypercapnia J96.21; J96.22 CHF (congestive heart failure) I50.33 Heart failure type: diastolic Heart failure chronicity: acute on chronic COPD (chronic obstructive pulmonary disease) J44.1 COPD type: COPD with acute exacerbation Anemia D64.9 Anemia type: unspecified type Hypotension I95.9 Hypokalemia E87.6 Pneumonia J18.9 Atrial fibrillation I48.11 Atrial fibrillation type: longstanding persistent SHERLEY (obstructive sleep apnea) G47.33 Dyslipidemia E78.5 BMI 50.0-59.9, adult Z68.43 Diabetes mellitus, type II E11.65; Z79.4 Diabetes mellitus complication status: with hyperglycemia Diabetes mellitus retirement insulin use: with emergency room technician use Diarrhea R19.7 Urinary retention R33.9
[2022-04-02] MEDS: ascorbic acid 500 mg Tablet PO (09:23)
[2022-04-02] MEDS: potassium chloride ER 20 mEq Tablet PO ×2 (09:23→18:03)
[2022-04-02] MEDS: acetaZOLAMIDE 250 mg Tablet PO (09:23)
[2022-04-02] MEDS: predniSONE 20 mg Tablet 40 MG PO (09:24)
[2022-04-02] MEDS: amiodarone 200 mg Tablet PO (09:24)
[2022-04-02] MEDS: insulin lispro 100 unit/1 mL SUBCUT ×3 (09:27→21:17)
[2022-04-02] MEDS: insulin glargine 100 units/1 mL 10 UNIT SUBCUT (09:27)
[2022-04-02] MEDS: FUROsemide 40 mg Tablet 80 MG PO ×2 (09:32→18:01)
--- NOTE | 2022-04-02 10:48 | P.PN_ITS ---
Subjective Subjective: no new complaints monterroso needed to be reinserted this AM Vitals/I&O/Wt Last Vital Signs Temp 97.7 F 04/02/22 08:00 Pulse 93 04/02/22 08:00 Resp 18 04/02/22 08:00 BP 130/93 04/02/22 08:00 Pulse Ox 98 04/02/22 08:00 O2 Del Method 04/02/22 08:00 O2 Flow Rate 3 04/02/22 07:24 FiO2 30 03/31/22 03:47 04/01/22 04/02/22 04/02/22 22:59 06:59 14:59 Intake Total 120 / 480 950 / 1430 0 / 0 Output Total 1200 / 1200 Balance 120 / 480 -250 / 230 0 / 0 Physical Exam Const: COMMON NORMALS: no acute distress and alert Extremity: GENERAL: Yes edema (3+) Neuro: SENSORIUM/ORIENTATION: Yes alert Urinary Catheter Management: Monterroso: Cath Placed During This Visit: yes Reason for Continuing Indwelling Catheter: Acute Urinary Retention or Obstruction Urinary Catheter Date of Insertion: 04/02/22 Urinary Catheter Time of Insertion: 01:45 Data 04/02/22 03:41 04/02/22 03:41 Other Labs: Ca 9.1, phos 3.5, Mg 1.8 A&P Assessment and plan (1) JAMES (acute kidney injury): seen via telemedicine with assistance of RN at bedside Plan 1. Acute kidney injury- improving. Good urine output. No acute indication for dialysis 2. Chronic kidney disease stage 3- from obesity, htn, dm -large kidneys on us 3. Volume overload. furosemide dose increased 4. Metabolic alkalosis (resp acidosis), hypercapnea, hypokalemia. continue diamox and KCl (increase dose to BID) 5. Anemia, stable Hb 6. 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
[2022-04-02 11:24] LABS: Glucose Point of Care 131 mg/dL (70-110)
[2022-04-02] MEDS: ipratropium-albuterol 3 mL Neb INHALATION (14:16)
[2022-04-02 17:43] LABS: Glucose Point of Care 364 mg/dL (70-110)
[2022-04-02] MEDS: levofloxacin-dextrose 5 % 750 MG/150 ML PREMIX 100 MG IV (20:09)
[2022-04-02] MEDS: insulin glargine 100 units/1 mL 20 UNIT SUBCUT (20:09)
[2022-04-02] MEDS: duloxetine 60 mg Capsule PO (20:10)
[2022-04-02] MEDS: ALPRAZolam 0.5 mg Tablet PO (20:22)
[2022-04-02 21:07] LABS: Glucose Point of Care 323 mg/dL (70-110)
[2022-04-03] VITALS (10 sets, daily range): BP systolic 100–129; BP diastolic 63–84; PULSE 73–123; RESP 17–20; TEMP 36.4–37.1; O2SAT 91–99
[2022-04-03 03:35] LABS: Basophils % 0.2 %; Eosinophils # 0.1 10^3/uL (0.0-0.8); Eosinophils % 0.9 %; Hematocrit 30.7 % (42.0-52.0); Hemoglobin 9.1 g/dL (11.7-16.6); Lymphocytes # 1.4 10^3/uL (0.8-4.8); Lymphocytes % 11.3 %; Mean Corpuscular HGB Conc 29.6 g/dL (30.0-36.0); Mean Corpuscular Hemoglobin 28.5 pg (28.0-34.0); Mean Corpuscular Volume 96.2 fl (80-94); Mean Platelet Volume 12.4 fL (7.4-10.4); Monocytes # 0.9 10^3/uL (0.2-0.9); Monocytes % 7.2 %; Neutrophils # 10.11 10^3/uL (1.8-7.7); Nucleated Red Blood Cells % 0 %; Platelet Count 148 10^3/cmm (130-400); Red Blood Count 3.19 10^6/uL (4.1-5.3); Red Cell Distribution Width 14.8 % (12.1-15.1); White Blood Count 12.6 10^3/uL (4.0-10.0)
[2022-04-03 04:05] LABS: Albumin Level 3.1 g/dL (3.5-5.2); Anion Gap 7.5 (5-19); Blood Urea Nitrogen 59 mg/dL (8-23); Calcium 9.2 mg/dL (8.5-10.5); Carbon Dioxide 37 mmol/L (22-29); Chloride 96 mmol/L (98-107); Glomerular Filtration Rate 19.8 mL/min (90-130); Glucose 120 mg/dL (65-115); Magnesium 1.8 mg/dL (1.7-2.3); Phosphorus 3.4 mg/dL (2.5-4.5); Potassium 3.5 mmol/L (3.5-5.1); Sodium 137 mmol/L (136-145)
[2022-04-03] MEDS: atorvastatin 40 mg Tablet 80 MG PO (05:25)
[2022-04-03 06:21] LABS: Glucose Point of Care 133 mg/dL (70-110)
[2022-04-03] MEDS: amiodarone 200 mg Tablet PO (09:10)
[2022-04-03] MEDS: cholecalciferol (vitamin D3) 1,000 unit Tablet 2000 UNIT PO (09:10)
[2022-04-03] MEDS: tamsulosin 0.4 mg Capsule PO (09:10)
[2022-04-03] MEDS: acetaZOLAMIDE 250 mg Tablet PO (09:10)
[2022-04-03] MEDS: potassium chloride ER 20 mEq Tablet PO ×2 (09:10→17:52)
[2022-04-03] MEDS: FUROsemide 40 mg Tablet 80 MG PO ×2 (09:10→17:51)
[2022-04-03] MEDS: ascorbic acid 500 mg Tablet PO (09:10)
[2022-04-03] MEDS: pantoprazole 40 mg SDV IVP (09:11)
[2022-04-03] MEDS: insulin glargine 100 units/1 mL 10 UNIT SUBCUT (09:11)
--- NOTE | 2022-04-03 10:52 | PC.CHAP ---
Pastoral Care Encounter/Spiritual Assessment Type of Contact [] Declined public affairs director visit [] Patient/Family/Request visit [] Outpatient visit [] Follow-up visit [] Physician referral [] Code/Alert [X] Routine visit [] Staff referral [] Actively dying [] Patient sleeping [] Family support [] [] Out of room [] Palliative care [] [] Receiving care in room [] Pre-surgical visit [] Trauma [] Long length of stay [] ICU visit [] Other: Relational/Emotional Strength [X] Patient feels connected with others/family/visitors/staff [] Distress [] Loneliness/isolation [] Abandonment Spirituality of Patient [X] Person of Ruchi [X] Attends Sikhism of their Ruchi [XX] Believes in Prayer [] Reads Bible or Yazidism materials [] There are Spiritual issues to be addressed Employee Development Specialist 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 [X] Prayer [X] Active listening X[] Non-anxious presence []X Spiritual/emotional support [] Crisis/trauma care [] Spiritual counseling [] Bereavement support [] Provided bereavement packet [] Provided Bible/devotional materials [] Provided toy/stuffed animal, coloring book to patient or family member [] Provided Communion [] Anointing/[place] [] Salvation X[] Completed spiritual assessment [] Other: Impact on Illness or Injury [] Angry [] Fearful [] Anxious [] Often cries [] Exhaustion [] Unable to work [] Unable to attend denominational [] Unable to walk/stand [] Unable to read [] Unable to drive [] Unable to eat/drink [] Unable to sleep [] Unable to be with family [] Patient intubated [] Other: Summary Time spent with patient 15 MIN
--- NOTE | 2022-04-03 11:05 | PM.PN ---
Subjective Subjective: No new complaints Medications: Medication Review Details: Medications reviewed Vitals/I&O/Wt Last Vital Signs Temp 98.0 F 04/03/22 07:31 Pulse 123 H 04/03/22 07:31 Resp 20 H 04/03/22 07:31 BP 129/84 04/03/22 07:31 Pulse Ox 91 04/03/22 07:31 O2 Del Method 04/03/22 07:31 O2 Flow Rate 3 04/03/22 07:19 FiO2 30 03/31/22 03:47 04/02/22 04/03/22 04/03/22 22:59 06:59 14:59 Intake Total 380 / 640 870 / 870 Output Total 1150 / 1150 Balance 380 / 640 -1150 / -510 870 / 870 Physical Exam Const: COMMON NORMALS: no acute distress and alert Extremity: GENERAL: Yes edema (3+) Neuro: SENSORIUM/ORIENTATION: Yes alert Urinary Catheter Management: Monterroso: Cath Placed During This Visit: yes Reason for Continuing Indwelling Catheter: Acute Urinary Retention or Obstruction Urinary Catheter Date of Insertion: 04/02/22 Urinary Catheter Time of Insertion: 01:45 Data 04/03/22 02:59 04/03/22 02:59 Other Labs: LFT normal, Ca 9.6, phos 3.6, Mg 2.0 Micro: Microbiology 03/29/22 19:25 C.difficile Toxin B Gene (PCR) - Final Stool - Stool Aspirate A&P Assessment and plan (1) JAMES (acute kidney injury): seen via telemedicine with assistance of RN at bedside Plan 1. Acute kidney injury- improving. Good urine output. No acute indication for dialysis 2. Chronic kidney disease stage 3- from obesity, htn, dm -large kidneys on us, creatinine stable in the 3 range 3. Volume overload. furosemide dose increased , maintain negative balance 4. Metabolic alkalosis (resp acidosis), hypercapnea, hypokalemia. continue diamox and KCl (increase dose to BID) 5. Anemia, stable Hb 6. Urine retention, failed voiding trial, monterroso replaced, tamsulosin added Recommend: continue fluid restriction, furosemide Attestations Medical Necessity Statement*: per [facility] service Time Spent in Patient Care: 16 - 35 minutes Coding Level of Care Code Acute Travel Professional for [facility] Diagnoses JAMES (acute kidney injury) N17.9
[2022-04-03 11:26] LABS: Glucose Point of Care 211 mg/dL (70-110)
--- NOTE | 2022-04-03 12:10 | PC.SOCIAL ---
IMM Update Pg 2 of IMM updated and reviewed w/ patient. Copy provided and copy in chart dated, and initialed.
[2022-04-03] MEDS: dilTIAZem 30 mg Tablet PO ×3 (12:20→21:36)
[2022-04-03 12:47] LABS: Glucose Point of Care 131 mg/dL (70-110)
--- NOTE | 2022-04-03 15:52 | PM.PN ---
Subjective Subjective: Patient was seen this morning, is at bedside, he tells me he did not sleep a lot at night, he wakes up every 2 hours, Xanax a had received earlier in his admission really did not help, denies any chest pain, no palpitations still has edema, Vitals/I&O/Wt Last Vital Signs Temp 98.5 F 04/03/22 11:56 Pulse 116 H 04/03/22 11:56 Resp 20 H 04/03/22 11:56 BP 102/64 04/03/22 11:56 Pulse Ox 96 04/03/22 11:56 O2 Del Method 04/03/22 11:56 O2 Flow Rate 3 04/03/22 07:19 FiO2 30 03/31/22 03:47 04/03/22 04/03/22 04/03/22 06:59 14:59 22:59 Intake Total 1110 / 1110 Output Total 1150 / 1150 Balance -1150 / -510 1110 / 1110 Physical Exam Const: COMMON NORMALS: no acute distress and patient oriented x3 Resp: COMMON NORMALS: normal respiratory effort, No retractions, No use of accessory muscles and clear to auscultation bilaterally AUSCULTATION: clear to auscultation bilaterally Cardio: COMMON NORMALS: regular rate, regular rhythm, S1 normal heart sound present and S2 normal heart sound present RATE: regular rate RHYTHM: regular rhythm HEART SOUNDS: S1 normal heart sound present and S2 normal heart sound present GI: COMMON NORMALS: Normal to inspection, nondistended, normoactive bowel sounds present and non-tender Extremity: OTHER: 1+ pitting edema bilateral lower extremity Neuro: COMMON NORMALS: patient oriented x3 Psych: COMMON NORMALS: mental status grossly normal Urinary Catheter Management: Lord: Cath Placed During This Visit: yes Reason for Continuing Indwelling Catheter: Acute Urinary Retention or Obstruction Urinary Catheter Date of Insertion: 04/02/22 Urinary Catheter Time of Insertion: 01:45 Data 04/03/22 02:59 04/03/22 02:59 A&P Assessment and plan (1) JAMES (acute kidney injury): Nephrology following Cr improving, 3.2 today Strict I&Os Daily weights Avoid nephrotoxins Renally dose medications Continue fluid restriction Continue oral Lasix (2) Acute on chronic respiratory failure with hypoxia and hypercapnia: Continue acetylcysteine nebs Stop Levaquin, 10 days of therapy Continue optimizing fluid balance Continue NIV (3) CHF (congestive heart failure): Acute on chronic diastolic heart failure with preserved ejection fraction Continue Lasix Qualifiers: Heart failure type: diastolic Heart failure chronicity: acute on chronic Qualified Code(s): I50.33 - Acute on chronic diastolic (congestive) heart failure (4) COPD (chronic obstructive pulmonary disease): With acute exacerbation Off prednisone Continue Duonebs Tessalon Pulmonary toilet Qualifiers: COPD type: COPD with acute exacerbation Qualified Code(s): J44.1 - Chronic obstructive pulmonary disease with (acute) exacerbation (5) Anemia: Anemia of chronic disease Continue iron supplementation Conitnue to monitor Qualifiers: Anemia type: unspecified type Qualified Code(s): D64.9 - Anemia, unspecified (6) Hypotension: Now off midodrine Continue to mointor (7) Hypokalemia: Continue potassium replacement (8) Pneumonia: Continue Levaquin (9) Atrial fibrillation: Has had intermittent RVR Continue amiodarone Add Cardizem 30 every 6 every 6 hours Add Eliquis 5 twice daily Qualifiers: Atrial fibrillation type: longstanding persistent Qualified Code(s): I48.11 - Longstanding persistent atrial fibrillation (10) SHERLEY (obstructive sleep apnea): Continue NIV while sleeping (11) Dyslipidemia: Continue statin (12) BMI 50.0-59.9, adult: Would benefit from weight loss (13) Diabetes mellitus, type II: Continue Lantus SSI Avoid hypoglycemia Qualifiers: Diabetes mellitus complication status: with hyperglycemia Diabetes mellitus intermediate designer insulin use: with halfway use Qualified Code(s): E11.65 - Type 2 diabetes mellitus with hyperglycemia; Z79.4 - equipment operator intermodal yard (current) use of insulin (14) Diarrhea: C diff negative Imodium PRN Resolved (15) Urinary retention: Lord placed overnight Spouse report prior history of urinary retention Start Flomax Plan DVT ppx: SCD Code status: DNR Add on clonazepam for anxiety Plan for today is to get better heart rate control, add on Cardizem, start him back on Eliquis, try clonazepam for anxiety potentially discharge in the next 24 to 48 hours Attestations Medical Necessity Statement*: She requires hospitalization for fluid overload requiring diuresis, urinary retention, JAMES Coding Level of Care Code 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 [facility] Diagnoses JAMES (acute kidney injury) N17.9 Acute on chronic respiratory failure with hypoxia and hypercapnia J96.21; J96.22 CHF (congestive heart failure) I50.33 Heart failure type: diastolic Heart failure chronicity: acute on chronic COPD (chronic obstructive pulmonary disease) J44.1 COPD type: COPD with acute exacerbation Anemia D64.9 Anemia type: unspecified type Hypotension I95.9 Hypokalemia E87.6 Pneumonia J18.9 Atrial fibrillation I48.11 Atrial fibrillation type: longstanding persistent SHERLEY (obstructive sleep apnea) G47.33 Dyslipidemia E78.5 BMI 50.0-59.9, adult Z68.43 Diabetes mellitus, type II E11.65; Z79.4 Diabetes mellitus complication status: with hyperglycemia Diabetes mellitus intermediate designer insulin use: with halfway use Diarrhea R19.7 Urinary retention R33.9
[2022-04-03 17:16] LABS: Glucose Point of Care 239 mg/dL (70-110)
[2022-04-03] MEDS: insulin lispro 100 unit/1 mL SUBCUT ×2 (17:51→21:37)
[2022-04-03] MEDS: insulin glargine 100 units/1 mL 20 UNIT SUBCUT (20:07)
[2022-04-03] MEDS: apixaban 5 mg Tablet PO (20:07)
[2022-04-03] MEDS: duloxetine 60 mg Capsule PO (20:07)
[2022-04-03 20:58] LABS: Glucose Point of Care 262 mg/dL (70-110)
[2022-04-03] MEDS: budesonide 0.5 mg/2 mL Neb INHALATION (21:03)
[2022-04-03] MEDS: ipratropium-albuterol 3 mL Neb INHALATION (21:03)
[2022-04-03] MEDS: CLONazepam 0.5 mg Tablet 0.25 MG PO (23:32)
[2022-04-04] VITALS (11 sets, daily range): BP systolic 91–115; BP diastolic 55–74; PULSE 91–115; RESP 16–22; TEMP 36.4–37.2; O2SAT 92–97
[2022-04-04] MEDS: dilTIAZem 30 mg Tablet PO ×4 (03:53→20:46)
[2022-04-04 05:12] LABS: Basophils % 0.2 %; Eosinophils # 0.3 10^3/uL (0.0-0.8); Hematocrit 31.8 % (42.0-52.0); Hemoglobin 9.3 g/dL (11.7-16.6); Lymphocytes # 2.1 10^3/uL (0.8-4.8); Lymphocytes % 18.6 %; Mean Corpuscular HGB Conc 29.2 g/dL (30.0-36.0); Mean Corpuscular Hemoglobin 28.6 pg (28.0-34.0); Mean Corpuscular Volume 97.8 fl (80-94); Mean Platelet Volume 12.3 fL (7.4-10.4); Monocytes # 0.7 10^3/uL (0.2-0.9); Monocytes % 6.3 %; Neutrophils % 71.5 %; Nucleated Red Blood Cells % 0 %; Platelet Count 124 10^3/cmm (130-400); Red Blood Count 3.25 10^6/uL (4.1-5.3); Red Cell Distribution Width 14.9 % (12.1-15.1); White Blood Count 11.2 10^3/uL (4.0-10.0)
[2022-04-04] MEDS: atorvastatin 40 mg Tablet 80 MG PO (05:16)
[2022-04-04 05:38] LABS: Alanine Aminotransferase 21 U/L (0-41); Albumin Level 3.4 g/dL (3.5-5.2); Alkaline Phosphatase 50 U/L (40-130); Anion Gap 11.9 (5-19); Aspartate Amino Transferase 19 U/L (0-40); Blood Urea Nitrogen 50 mg/dL (8-23); C Reactive Protein 6.8 mg/L (0.0-4.9); Calcium 8.8 mg/dL (8.5-10.5); Carbon Dioxide 35 mmol/L (22-29); Chloride 102 mmol/L (98-107); Globulin 2.6 g/dL (1.3-4.6); Glomerular Filtration Rate 19.1 mL/min (90-130); Glucose 134 mg/dL (65-115); Magnesium 1.8 mg/dL (1.7-2.3); Osmolality Calculated 315 mOsm/kg (285-295); Phosphorus 3.9 mg/dL (2.5-4.5); Potassium 3.9 mmol/L (3.5-5.1); Sodium 145 mmol/L (136-145); Total Bilirubin 0.2 mg/dL (0.15-1.2)
[2022-04-04 05:39] LABS: Creatinine Clr Calc Pharmacy 38.2994
[2022-04-04 06:39] LABS: Glucose Point of Care 195 mg/dL (70-110)
[2022-04-04] MEDS: amiodarone 200 mg Tablet PO (09:22)
[2022-04-04] MEDS: ascorbic acid 500 mg Tablet PO (09:22)
[2022-04-04] MEDS: pantoprazole 40 mg SDV IVP (09:22)
[2022-04-04] MEDS: acetaZOLAMIDE 250 mg Tablet PO (09:22)
[2022-04-04] MEDS: insulin lispro 100 unit/1 mL SUBCUT ×3 (09:23→17:17)
[2022-04-04] MEDS: potassium chloride ER 20 mEq Tablet PO ×2 (09:23→17:18)
[2022-04-04] MEDS: tamsulosin 0.4 mg Capsule PO (09:23)
[2022-04-04] MEDS: cholecalciferol (vitamin D3) 1,000 unit Tablet 2000 UNIT PO (09:23)
[2022-04-04] MEDS: insulin glargine 100 units/1 mL 10 UNIT SUBCUT (09:24)
[2022-04-04] MEDS: FUROsemide 40 mg Tablet 80 MG PO ×2 (09:30→15:21)
[2022-04-04] MEDS: apixaban 5 mg Tablet PO ×2 (09:30→20:46)
[2022-04-04 11:41] LABS: Glucose Point of Care 246 mg/dL (70-110)
[2022-04-04 11:41] LABS: Glucose Point of Care 443 mg/dL (70-110)
--- NOTE | 2022-04-04 13:11 | PM.PN ---
Subjective Subjective: Patient was seen this morning, he is frustrated as he continues to have edema, it is improved but he is now developing a bit of weeping edema on the right lower extremity, he had a better night with clonazepam he actually got 4 hours of last continuously which is good for him he tells me Vitals/I&O/Wt Last Vital Signs Temp 98.1 F 04/04/22 12:00 Pulse 94 04/04/22 12:00 Resp 20 H 04/04/22 12:00 BP 109/69 04/04/22 12:00 Pulse Ox 96 04/04/22 12:00 O2 Del Method 04/04/22 12:00 O2 Flow Rate 3 04/04/22 12:00 FiO2 30 03/31/22 03:47 04/03/22 04/04/22 04/04/22 22:59 06:59 14:59 Intake Total 720 / 1830 480 / 480 Output Total 1200 / 1200 750 / 1950 Balance -480 / 630 -750 / -120 480 / 480 Physical Exam Const: COMMON NORMALS: no acute distress and patient oriented x3 Resp: COMMON NORMALS: normal respiratory effort, No retractions, No use of accessory muscles and clear to auscultation bilaterally AUSCULTATION: clear to auscultation bilaterally Cardio: COMMON NORMALS: regular rate, regular rhythm, S1 normal heart sound present and S2 normal heart sound present RATE: regular rate RHYTHM: regular rhythm HEART SOUNDS: S1 normal heart sound present and S2 normal heart sound present GI: COMMON NORMALS: Normal to inspection, nondistended, normoactive bowel sounds present and non-tender Extremity: NARRATIVE EXTREMITY EXAM: Bilateral lower extremity 2+ pitting edema, right lower extremity weeping edema Neuro: COMMON NORMALS: patient oriented x3 Psych: COMMON NORMALS: mental status grossly normal Urinary Catheter Management: Lord: Cath Placed During This Visit: yes Reason for Continuing Indwelling Catheter: Acute Urinary Retention or Obstruction Urinary Catheter Date of Insertion: 04/02/22 Urinary Catheter Time of Insertion: 01:45 Data 04/04/22 04:48 04/04/22 04:48 A&P Assessment and plan (1) JAMES (acute kidney injury): Nephrology following Cr improving, 3.3 today Strict I&Os Daily weights Avoid nephrotoxins Renally dose medications Continue fluid restriction Continue oral Lasix (2) Acute on chronic respiratory failure with hypoxia and hypercapnia: Continue acetylcysteine nebs Stopped Levaquin, 10 days of therapy Continue optimizing fluid balance Continue NIV (3) CHF (congestive heart failure): Acute on chronic diastolic heart failure with preserved ejection fraction Continue Lasix Qualifiers: Heart failure type: diastolic Heart failure chronicity: acute on chronic Qualified Code(s): I50.33 - Acute on chronic diastolic (congestive) heart failure (4) COPD (chronic obstructive pulmonary disease): With acute exacerbation Off prednisone Continue Duonebs Tessalon Pulmonary toilet Qualifiers: COPD type: COPD with acute exacerbation Qualified Code(s): J44.1 - Chronic obstructive pulmonary disease with (acute) exacerbation (5) Anemia: Anemia of chronic disease Continue iron supplementation Conitnue to monitor Qualifiers: Anemia type: unspecified type Qualified Code(s): D64.9 - Anemia, unspecified (6) Hypotension: Now off midodrine Continue to mointor (7) Hypokalemia: Continue potassium replacement (8) Pneumonia: Continue Levaquin (9) Atrial fibrillation: Has had intermittent RVR Continue amiodarone Add Cardizem 30 every 6 every 6 hours Add Eliquis 5 twice daily Qualifiers: Atrial fibrillation type: longstanding persistent Qualified Code(s): I48.11 - Longstanding persistent atrial fibrillation (10) SHERLEY (obstructive sleep apnea): Continue NIV while sleeping (11) Dyslipidemia: Continue statin (12) BMI 50.0-59.9, adult: Would benefit from weight loss (13) Diabetes mellitus, type II: Continue Lantus SSI Avoid hypoglycemia Qualifiers: Diabetes mellitus complication status: with hyperglycemia Diabetes mellitus [facility] insulin use: with termite inspector use Qualified Code(s): E11.65 - Type 2 diabetes mellitus with hyperglycemia; Z79.4 - buttermaker continuous churn (current) use of insulin (14) Diarrhea: C diff negative Imodium PRN Resolved (15) Urinary retention: Lord placed overnight Spouse report prior history of urinary retention Start Flomax Plan DVT ppx: SCD Code status: DNR Add on clonazepam for anxiety Plan for today continues to have lower extreme edema, weeping edema, continue Lasix, monitor creatinine monitor potassium, patient's frustrated about being in the hospital for 16 days, but I am worried that if I sent home today will be back in for fluid overload, will need to be be gentle with his kidneys Hesitant about increasing his Lasix also added metolazone will need to monitor, patient's home AVAPS has been delivered is at his bedside he has been compliant with a more last night he used it for 4 hours continuously, was worried about 1 desaturation episode into the mid 80s, he was asymptomatic but will monitor Attestations Medical Necessity Statement*: Patient requires hospital care for fluid overload requiring diuresis, Coding Level of Care Code Acute Shingle Packer for g Fwd Diagnoses JAMES (acute kidney injury) N17.9 Acute on chronic respiratory failure with hypoxia and hypercapnia J96.21; J96.22 CHF (congestive heart failure) I50.33 Heart failure type: diastolic Heart failure chronicity: acute on chronic COPD (chronic obstructive pulmonary disease) J44.1 COPD type: COPD with acute exacerbation Anemia D64.9 Anemia type: unspecified type Hypotension I95.9 Hypokalemia E87.6 Pneumonia J18.9 Atrial fibrillation I48.11 Atrial fibrillation type: longstanding persistent SHERLEY (obstructive sleep apnea) G47.33 Dyslipidemia E78.5 BMI 50.0-59.9, adult Z68.43 Diabetes mellitus, type II E11.65; Z79.4 Diabetes mellitus complication status: with hyperglycemia Diabetes mellitus termite inspector insulin use: with [facility] use Diarrhea R19.7 Urinary retention R33.9
--- NOTE | 2022-04-04 16:27 | P.PN_ITS ---
Subjective Subjective: c/o fatigue , weakness Medications: Reviewed: Yes Vitals/I&O/Wt Last Vital Signs Temp 98.2 F 04/04/22 15:52 Pulse 91 04/04/22 15:52 Resp 17 04/04/22 15:52 BP 114/71 04/04/22 15:52 Pulse Ox 97 04/04/22 15:52 O2 Del Method 04/04/22 15:52 O2 Flow Rate 3 04/04/22 15:52 FiO2 30 03/31/22 03:47 04/04/22 04/04/22 04/04/22 06:59 14:59 22:59 Intake Total 480 / 480 Output Total 750 / 1950 Balance -750 / -120 480 / 480 Physical Exam Const: COMMON NORMALS: no acute distress and alert Extremity: GENERAL: Yes edema (3+) Neuro: SENSORIUM/ORIENTATION: Yes alert Urinary Catheter Management: Monterroso: Cath Placed During This Visit: yes Reason for Continuing Indwelling Catheter: Acute Urinary Retention or Obstruction Urinary Catheter Date of Insertion: 04/02/22 Urinary Catheter Time of Insertion: 01:45 Data 04/04/22 04:48 04/04/22 04:48 A&P Assessment and plan (1) JAMES (acute kidney injury): seen via telemedicine with assistance of RN at bedside Plan 1. Acute kidney injury- improving. Good urine output. No acute indication for dialysis 2. Chronic kidney disease stage 3- from obesity, htn, dm -large kidneys on us, creatinine stable in the 3 range 3. Volume overload. furosemide dose increased , maintain negative balance 4. Metabolic alkalosis (resp acidosis), hypercapnea, hypokalemia. continue diamox and KCl (increase dose to BID) 5. Anemia, stable Hb 6. Urine retention, failed voiding trial, monterroso replaced, tamsulosin added Recommend: continue fluid restriction, furosemide Attestations Medical Necessity Statement*: Patient requires hospital care for fluid overload requiring diuresis, Coding Level of Care Code Acute Bleach Supervisor for [facility] Diagnoses JAMES (acute kidney injury) N17.9
[2022-04-04 16:55] LABS: Glucose Point of Care 273 mg/dL (70-110)
[2022-04-04 20:33] LABS: Glucose Point of Care 141 mg/dL (70-110)
[2022-04-04] MEDS: duloxetine 60 mg Capsule PO (20:45)
[2022-04-04] MEDS: CLONazepam 0.5 mg Tablet 0.25 MG PO (20:45)
[2022-04-05] VITALS (10 sets, daily range): BP systolic 77–141; BP diastolic 49–82; PULSE 73–133; RESP 14–18; TEMP 36.4–36.8; O2SAT 92–99
[2022-04-05] MEDS: dilTIAZem 30 mg Tablet PO ×4 (04:06→21:25)
[2022-04-05] MEDS: atorvastatin 40 mg Tablet 80 MG PO (04:06)
[2022-04-05 04:44] LABS: Blood Urea Nitrogen 50 mg/dL (8-23); Calcium 9.1 mg/dL (8.5-10.5); Carbon Dioxide 34 mmol/L (22-29); Chloride 100 mmol/L (98-107); Glomerular Filtration Rate 19.1 mL/min (90-130); Glucose 173 mg/dL (65-115); Osmolality Calculated 313 mOsm/kg (285-295); Sodium 143 mmol/L (136-145)
[2022-04-05 04:56] LABS: Creatinine Clr Calc Pharmacy 38.2994
--- NOTE | 2022-04-05 05:27 | PC.NURSE ---
Patient has 480cc of ice water and 120cc of ice chips.
[2022-04-05 06:24] LABS: Glucose Point of Care 186 mg/dL (70-110)
[2022-04-05] MEDS: potassium chloride ER 20 mEq Tablet PO ×2 (07:55→16:53)
[2022-04-05] MEDS: ascorbic acid 500 mg Tablet PO (07:55)
[2022-04-05] MEDS: acetaZOLAMIDE 250 mg Tablet PO (07:55)
[2022-04-05] MEDS: cholecalciferol (vitamin D3) 1,000 unit Tablet 2000 UNIT PO (07:55)
[2022-04-05] MEDS: amiodarone 200 mg Tablet PO (07:56)
[2022-04-05] MEDS: insulin glargine 100 units/1 mL 10 UNIT SUBCUT (07:56)
[2022-04-05] MEDS: insulin lispro 100 unit/1 mL SUBCUT ×4 (07:56→21:25)
[2022-04-05] MEDS: apixaban 5 mg Tablet PO ×2 (07:57→21:25)
[2022-04-05] MEDS: pantoprazole 40 mg SDV IVP (07:57)
[2022-04-05] MEDS: tamsulosin 0.4 mg Capsule PO (07:57)
[2022-04-05] MEDS: FUROsemide 40 mg Tablet 80 MG PO ×2 (08:00→16:53)
--- NOTE | 2022-04-05 11:20 | PC.SOCIAL ---
IMM update IMM updated with patient and S.O at bedside. Verbalized an understanding. Copy pg 2 provided. Initialled, dated, timed, and placed in chart.
[2022-04-05 12:27] LABS: Glucose Point of Care 204 mg/dL (70-110)
--- NOTE | 2022-04-05 12:47 | P.PN_ITS ---
Subjective Subjective: Patient was seen this morning, he sitting up in a chair, legs elevated, he has no complaints this morning, he does want to go home but potentially tomorrow I had a long discussion about his fluid overload, his hospitalization, he is not ready to leave the hospital today he tells me, but he is motivated about leaving tomorrow, advised on compliance with his BiPAP, with diuretic regimen, fluid restrictions, I advised him to be ambulatory throughout the day Vitals/I&O/Wt Last Vital Signs Temp 98.2 F 04/05/22 08:00 Pulse 98 04/05/22 08:00 Resp 14 04/05/22 08:00 BP 119/75 04/05/22 08:00 Pulse Ox 98 04/05/22 08:00 O2 Del Method 04/05/22 08:00 O2 Flow Rate 4 04/05/22 08:00 FiO2 30 03/31/22 03:47 04/04/22 04/05/22 04/05/22 22:59 06:59 14:59 Intake Total 240 / 720 600 / 1320 200 / 200 Output Total 500 / 500 Balance 240 / 720 100 / 820 200 / 200 Physical Exam Const: COMMON NORMALS: no acute distress and patient oriented x3 Resp: COMMON NORMALS: normal respiratory effort, No retractions, No use of accessory muscles and clear to auscultation bilaterally AUSCULTATION: clear to auscultation bilaterally Cardio: COMMON NORMALS: regular rate, regular rhythm, S1 normal heart sound present and S2 normal heart sound present RATE: regular rate RHYTHM: regular rhythm HEART SOUNDS: S1 normal heart sound present and S2 normal heart sound present GI: COMMON NORMALS: Normal to inspection, nondistended, normoactive bowel sounds present and non-tender Extremity: NARRATIVE EXTREMITY EXAM: 1+ edema edema bilateral lower extremity Neuro: COMMON NORMALS: patient oriented x3 Psych: COMMON NORMALS: mental status grossly normal Urinary Catheter Management: Lord: Cath Placed During This Visit: yes Reason for Continuing Indwelling Catheter: Accurate Measurement of Urinary Output in Critically Ill Patients Urinary Catheter Date of Insertion: 04/02/22 Urinary Catheter Time of Insertion: 01:45 Data 04/04/22 04:48 04/05/22 03:26 A&P Assessment and plan (1) JAMES (acute kidney injury): Nephrology following Cr improving, 3.3 today Strict I&Os Daily weights Avoid nephrotoxins Renally dose medications Continue fluid restriction Continue oral Lasix Plan on discharging tomorrow on p.o. Lasix (2) Acute on chronic respiratory failure with hypoxia and hypercapnia: Continue acetylcysteine nebs Stopped Levaquin, 10 days of therapy Continue optimizing fluid balance Continue NIV (3) CHF (congestive heart failure): Acute on chronic diastolic heart failure with preserved ejection fraction Continue Lasix Qualifiers: Heart failure type: diastolic Heart failure chronicity: acute on chronic Qualified Code(s): I50.33 - Acute on chronic diastolic (congestive) heart failure (4) COPD (chronic obstructive pulmonary disease): With acute exacerbation Off prednisone Continue Duonebs Tessalon Pulmonary toilet Qualifiers: COPD type: COPD with acute exacerbation Qualified Code(s): J44.1 - Chronic obstructive pulmonary disease with (acute) exacerbation (5) Anemia: Anemia of chronic disease Continue iron supplementation Conitnue to monitor Qualifiers: Anemia type: unspecified type Qualified Code(s): D64.9 - Anemia, unspecified (6) Hypotension: Now off midodrine Continue to mointor (7) Hypokalemia: Continue potassium replacement (8) Pneumonia: Continue Levaquin (9) Atrial fibrillation: Has had intermittent RVR Continue amiodarone Add Cardizem 30 every 6 every 6 hours Add Eliquis 5 twice daily Qualifiers: Atrial fibrillation type: longstanding persistent Qualified Code(s): I48.11 - Longstanding persistent atrial fibrillation (10) SHERLEY (obstructive sleep apnea): Continue NIV while sleeping (11) Dyslipidemia: Continue statin (12) BMI 50.0-59.9, adult: Would benefit from weight loss (13) Diabetes mellitus, type II: Continue Lantus SSI Avoid hypoglycemia Qualifiers: Diabetes mellitus complication status: with hyperglycemia Diabetes mellitus assistant terminal manager insulin use: with assistant terminal manager use Qualified Code(s): E11.65 - Type 2 diabetes mellitus with hyperglycemia; Z79.4 - terminal clerk (current) use of insulin (14) Diarrhea: C diff negative Imodium PRN Resolved (15) Urinary retention: Lord placed overnight Spouse report prior history of urinary retention Start Flomax Plan DVT ppx: SCD Code status: DNR Add on clonazepam for anxiety Plan for today continue diuretic therapy, encourage ambulation, plan on discharge tomorrow morning, will need Lord catheter in place due to urinary retention follow-up with the urology, he is to follow-up with cardiology, he has his noninvasive ventilator set up, I he needs to use it, needs to be compliant with that Attestations Medical Necessity Statement*: Patient requires hospitalization for fluid overload Coding Level of Care Code Acute Matrix Supervisor for Chg F[employer] Diagnoses JAMES (acute kidney injury) N17.9 Acute on chronic respiratory failure with hypoxia and hypercapnia J96.21; J96.22 CHF (congestive heart failure) I50.33 Heart failure type: diastolic Heart failure chronicity: acute on chronic COPD (chronic obstructive pulmonary disease) J44.1 COPD type: COPD with acute exacerbation Anemia D64.9 Anemia type: unspecified type Hypotension I95.9 Hypokalemia E87.6 Pneumonia J18.9 Atrial fibrillation I48.11 Atrial fibrillation type: longstanding persistent SHERLEY (obstructive sleep apnea) G47.33 Dyslipidemia E78.5 BMI 50.0-59.9, adult Z68.43 Diabetes mellitus, type II E11.65; Z79.4 Diabetes mellitus complication status: with hyperglycemia Diabetes mellitus assistant terminal manager insulin use: with assistant terminal manager use Diarrhea R19.7 Urinary retention R33.9
--- NOTE | 2022-04-05 13:08 | PC.NURSE ---
Pt B/P lower on right arm than let. Right arm: 77/49. Left arm: 100/59. Reported findings to primary nurse MONA Salcedo
[2022-04-05 16:41] LABS: Glucose Point of Care 262 mg/dL (70-110)
--- NOTE | 2022-04-05 18:49 | PM.PN ---
Subjective Subjective: no SOB Vitals/I&O/Wt Last Vital Signs Temp 97.6 F 04/05/22 16:00 Pulse 73 04/05/22 16:00 Resp 18 04/05/22 16:00 BP 108/64 04/05/22 16:00 Pulse Ox 92 04/05/22 16:00 O2 Del Method 04/05/22 08:00 O2 Flow Rate 4 04/05/22 08:00 FiO2 30 03/31/22 03:47 04/05/22 04/05/22 04/05/22 06:59 14:59 22:59 Intake Total 600 / 1320 200 / 200 Output Total 500 / 500 1000 / 1000 Balance 100 / 820 200 / 200 -1000 / -800 Physical Exam Const: COMMON NORMALS: no acute distress and alert Extremity: GENERAL: Yes edema (3+) Neuro: SENSORIUM/ORIENTATION: Yes alert Urinary Catheter Management: Monterroso: Cath Placed During This Visit: yes Reason for Continuing Indwelling Catheter: Acute Urinary Retention or Obstruction Urinary Catheter Date of Insertion: 04/02/22 Urinary Catheter Time of Insertion: 01:45 Data 04/04/22 04:48 04/05/22 03:26 A&P Assessment and plan (1) JAMES (acute kidney injury): seen via telemedicine with assistance of RN at bedside Plan 1. Acute kidney injury- improving. Good urine output. 2. Chronic kidney disease stage 3- from obesity, htn, dm -large kidneys on us, creatinine stable in the 3 range 3. Volume overload. furosemide dose increased , maintain negative balance 4. Metabolic alkalosis (resp acidosis), hypercapnea, hypokalemia. continue diamox and KCl (increase dose to BID) 5. Anemia, stable Hb 6. Urine retention, failed voiding trial, monterroso replaced, tamsulosin added Recommend: continue fluid restriction, furosemide arrange Nephrology follow up at [facility] Attestations Medical Necessity Statement*: Patient requires hospitalization for fluid overload Coding Level of Care Code Acute Contact Acid Plant Operator Helper for [facility] Diagnoses JAMES (acute kidney injury) N17.9
[2022-04-05 21:08] LABS: Glucose Point of Care 186 mg/dL (70-110)
[2022-04-05] MEDS: duloxetine 60 mg Capsule PO (21:24)
[2022-04-05] MEDS: CLONazepam 0.5 mg Tablet 0.25 MG PO (21:24)
[2022-04-05] MEDS: insulin glargine 100 units/1 mL 20 UNIT SUBCUT (21:25)
[2022-04-06] VITALS (8 sets, daily range): BP systolic 98–118; BP diastolic 63–74; PULSE 80–108; RESP 17–18; TEMP 36.3–37.1; O2SAT 96–99
[2022-04-06] MEDS: atorvastatin 40 mg Tablet 80 MG PO (04:05)
[2022-04-06] MEDS: dilTIAZem 30 mg Tablet PO ×2 (04:05→09:46)
[2022-04-06 05:55] LABS: Anion Gap 11.8 (5-19); Blood Urea Nitrogen 48 mg/dL (8-23); Carbon Dioxide 36 mmol/L (22-29); Chloride 95 mmol/L (98-107); Glomerular Filtration Rate 20.5 mL/min (90-130); Glucose 226 mg/dL (65-115); Osmolality Calculated 308 mOsm/kg (285-295); Potassium 3.8 mmol/L (3.5-5.1); Sodium 139 mmol/L (136-145)
[2022-04-06 06:29] LABS: Glucose Point of Care 246 mg/dL (70-110)
[2022-04-06] MEDS: pantoprazole 40 mg SDV IVP (09:46)
[2022-04-06] MEDS: acetaZOLAMIDE 250 mg Tablet PO (09:47)
[2022-04-06] MEDS: cholecalciferol (vitamin D3) 1,000 unit Tablet 2000 UNIT PO (09:47)
[2022-04-06] MEDS: apixaban 5 mg Tablet PO (09:52)
[2022-04-06] MEDS: amiodarone 200 mg Tablet PO (09:52)
[2022-04-06] MEDS: tamsulosin 0.4 mg Capsule PO (09:52)
[2022-04-06] MEDS: ascorbic acid 500 mg Tablet PO (09:52)
[2022-04-06] MEDS: potassium chloride ER 20 mEq Tablet PO (09:53)
[2022-04-06] MEDS: insulin glargine 100 units/1 mL 10 UNIT SUBCUT (09:55)
[2022-04-06] MEDS: FUROsemide 40 mg Tablet 80 MG PO (10:14)
[2022-04-06] MEDS: insulin lispro 100 unit/1 mL SUBCUT ×2 (10:14→12:30)
--- NOTE | 2022-04-06 10:31 | P.DS_ITS ---
Discharge Providers Date of Admission: 03/19/22 16:31 Date of Discharge: April 06, 2022 Attending Provider at Admission: Nany Carranza MD Attending Provider at Discharge: Garret Stack MD Primary Care Provider: Mason Giles MD Diagnoses at Discharge Discharge Diagnosis (1) JAMES (acute kidney injury): Status: Acute Reason for Visit Reason for Visit: RESP DISTRESS Hospital Course Hospital Course Wayne Nicholson is a 61 year old male ?with past medical history of morbid obesity, atrial fibrillation, diastolic congestive heart failure, COPD, type 2 diabetes mellitus, obstructive sleep apnea, noncompliant to BiPAP, recurrent admissions with hypoxic and hypercapnic respiratory failure?recent prolonged admission between 01/31- 02/22 where course was complicated by ventilator dependent respiratory failure, mucous plugging of left hemithorax along with thick secretions from the ET tube.? He required at least 2 bronchial washing during hospitalization along with aggressive pulmonary toilet for mucous plugging. He eventually improved with aggressive pulmonary toilet, inhalation treatment and antibiotics and was eventually extubated on 02/07.? Patient's extubation was difficult given his obstructive sleep apnea and body habitus.? He was found to be fairly deconditioned on extubation given his poor conditioning at baseline. ?sputum culture grew stenotrophomonas for which he was started on Bactrim.? His last course of antibiotic was on 02/10.? During hospitalization patient also developed C. difficile for which he received oral vancomycin. He was discharged to [facility] for ?further rehabitation both pulmonary and physical. He returns to the hospital today in severe respiratory distress.? Patient was admitted to [facility] for acute respiratory distress, acute on chronic respiratory failure with hypoxia hypercapnia, secondary to COPD exacerbation, pneumonia, fluid overload, he was intubated, managed in the ICU,. Overall patient's clinical condition improved, he was extubated, required BiPAP during the night, antibiotic therapy was tailored to cultures, steroid therapy was de-escalated, he continued to require diuresis. Patient was moved to general medical floors, patient developed JAMES, creatinine as high as 6, there was plans on carrying out dialysis however his kidney function and urine output improved. Eventually his steroid therapy weaned off. He finished his antibiotic therapy during his hospitalization. He had a prolonged hospitalization for about 17 days, requiring slow diuresis, while monitoring his kidney function and urine output, eventually regimen of Lasix 80 twice daily work with his kidney function. He continues to have some edema although I think it is a slow process to improved the edema, I think that if we are over aggressive in his diuresis he will go back into acute renal failure. Patient has been compliant with his noninvasive home ventilator that has been set for him at home, he has been using it more frequently, at least 4 hours during the night and I think he would clinically benefit and can decrease his risk of hospitalizations and to decrease his risk of morbidity and mortality. I strongly advised for him to be compliant with his noninvasive ventilator. He do es have a lot of anxiety especially during the night I discharged him on low- dose clonazepam, he tolerated it during his hospitalization, and it helped with his anxiety with his noninvasive ventilator. His creatinine at discharge was 3.1. He does have a 1+ pitting edema, however he is getting a slow diuresis over a long period of time, to decrease the risk of acute renal failure. Overall his clinical condition has improved, and is ready for discharge, estimated to go home, and he is agreeable. He is going to follow-up with his primary care doctor within the next few days to recheck his kidney function and his potassium. Follow-up with pulmonary in 2 weeks. Patient had multiple episodes of urinary retention requiring Lord replacement, I will discharge him with a Lord catheter placed with close follow-up with urology as outpatient. For his atrial fibrillation, discharged on Eliquis, Cardizem, amiodarone. He will follow-up with cardiology in the next few weeks. - Please follow-up with your primary care provider in 1 week -Your kidney function on discharge is 3.1, have your primary care provider recheck your kidney function -Please take Lasix 80 twice daily with potassium replacement therapy -You continue to have edema, however it will be a slow process to remove the edema, continue to take Lasix with potassium replacement -Limit fluid intake between 1 to 1.5 L a day -Please can be compliant with your noninvasive vent -Please use Klonopin sparingly at bedtime for anxiety -Please follow-up with [facility] [employer] in 2 weeks -I am discharging you with a Lord catheter placed due to urinary retention, please follow-up with urology in 1 week for removal -Unhappy follow-up with cardiology 1 month for atrial fibrillation -If you develop chest pain or shortness of breath or palpitations go to the emergency room -For your Kenneth I have decreased her dose to 20 units in the morning, 10 units in the evening -Based on her kidney function monitor blood sugars closely, you might develop hypoglycemia if so call your primary care or quarantine inspector -Follow-up with endocrinology in 1 month -Please monitor your blood sugars closely -Monitor your blood sugars 3 times daily as after meals -Please record your blood sugars, and a blood sugar log -For your NovoLog -Please inject humalog insulin (short acting) blood sugar after meals based on sliding scale provided -Do not inject insulin if you do not eat as hypoglycemia kills -This is a humalog sliding scale -Insulin sliding ?fingerstick? Insulin ?141-180?2 units/sq 181-220?4 units/sq ?221-260?6 units/sq ?261-300?8 units/sq ?301-350 10 units/sq ?351-400 12 units/sq > 400? 14 units/sq -If your blood sugar is greater than 500 go to the emergency room -If your blood sugar is less than 60 or at anytime you feel lightheaded or dizzy or diaphoretic or have chest palpitations check your blood sugar, and eat a hard candy or drink orange juice and go immediately to the emergency room -Remember hypoglycemia kills, so if his blood sugar is less than 60 we have to increase it by taking in a sugary meal such as a hard candy or orange juice and go to the emergency room -If you have any questions please call us where here to help Physical Exam Const: COMMON NORMALS: no acute distress and patient oriented x3 Resp: COMMON NORMALS: normal respiratory effort, No retractions, No use of accessory muscles and clear to auscultation bilaterally AUSCULTATION: clear to auscultation bilaterally Cardio: COMMON NORMALS: regular rate, regular rhythm, S1 normal heart sound present and S2 normal heart sound present RATE: regular rate RHYTHM: regular rhythm HEART SOUNDS: S1 normal heart sound present and S2 normal heart sound present GI: COMMON NORMALS: Normal to inspection, nondistended, normoactive bowel sounds present and non-tender Extremity: NARRATIVE EXTREMITY EXAM: bilateral lower extremity edema 1+ Neuro: COMMON NORMALS: patient oriented x3 Psych: COMMON NORMALS: mental status grossly normal Urinary Catheter Management: Lord: Cath Placed During This Visit: yes Reason for Continuing Indwelling Catheter: Acute Urinary Retention or Obstruction Urinary Catheter Date of Insertion: 04/02/22 Urinary Catheter Time of Insertion: 01:45 Discharge Data Studies Completed and Pending Completed Studies During Hospitalization Category Date Time Status CXRP [XR chest 1V portable [id number]] Stat Exams 03/21/22 07:47 Completed XR KUB portable [id number] Routine Exams 03/20/22 00:34 Completed XR chest 1V portable [id number] Routine Exams 03/28/22 10:31 Completed XR chest 1V portable [id number] Stat Exams 03/19/22 13:12 Completed XR chest 1V portable [id number] Stat Exams 03/19/22 20:33 Completed US renal BI* [id number] Routine Ultrasound 03/24/22 10:06 Completed Pending at discharge Category Date Time Status Basic Metabolic Panel AM LABS Lab 04/07/22 04:00 Ordered Radiology Impressions KUB X-Ray 03/20/22 00:34 IMPRESSION: 1. Enteric tube tip below the diaphragm over the gastric bubble. 2. Moderate left pleural effusion somewhat visualized. 3. Cardiomegaly. Renal Ultrasound 03/24/22 10:06 IMPRESSION: Images limited due to body habitus. 1. Increased echogenicity in both kidneys suspicious for medical renal disease. Kidneys are poorly visualized bilaterally due to body habitus. 2. No hydronephrosis in the kidney. 3. Lord catheter. Chest X-Ray 03/28/22 10:31 IMPRESSION: Improved left lung with persistent basilar infiltrate and effusion. Laboratory Results WBC 11.2 10^3/uL (4.0-10.0) H 04/04/22 04:48 RBC 3.25 10^6/uL (4.1-5.3) L 04/04/22 04:48 Hgb 9.3 g/dL (11.7-16.6) L 04/04/22 04:48 Hct 31.8 % (42.0-52.0) L 04/04/22 04:48 MCV 97.8 fl (80-94) H 04/04/22 04:48 MCH 28.6 pg (28.0-34.0) 04/04/22 04:48 MCHC 29.2 g/dL (30.0-36.0) L 04/04/22 04:48 RDW 14.9 % (12.1-15.1) 04/04/22 04:48 Plt Count 124 10^3/cmm (130-400) L 04/04/22 04:48 MPV 12.3 fL (7.4-10.4) H 04/04/22 04:48 Neut % (Auto) 71.5 % 04/04/22 04:48 Lymph % (Auto) 18.6 % 04/04/22 04:48 [place] % (Auto) 6.3 % 04/04/22 04:48 Eos % (Auto) 3.0 % 04/04/22 04:48 Baso % (Auto) 0.2 % 04/04/22 04:48 Neut # (Auto) 8.00 10^3/uL (1.8-7.7) H 04/04/22 04:48 Lymph # (Auto) 2.1 10^3/uL (0.8-4.8) 04/04/22 04:48 [place] # (Auto) 0.7 10^3/uL (0.2-0.9) 04/04/22 04:48 Eos # (Auto) 0.3 10^3/uL (0.0-0.8) 04/04/22 04:48 Baso # (Auto) 0.0 10^3/uL (0.0-0.1) 04/04/22 04:48 Nucleated RBC % (auto) 0 % 04/04/22 04:48 Nucleated RBCs # 0.0 /100WBC 04/04/22 04:48 Specimen Type Arterial 03/27/22 05:08 Sample Site Radial, left 03/27/22 05:08 ABG pH 7.33 (7.35-7.45) L 03/27/22 05:08 ABG pCO2 63.5 mmHg (35-45) H* 03/27/22 05:08 ABG pO2 72.7 mmHg (80.0-100.0) L 03/27/22 05:08 ABG HCO3 33.4 mmol/L (22-26) H 03/27/22 05:08 ABG O2 Saturation 93.9 03/27/22 05:08 ABG Base Excess 6.5 mmol/L (-2.0-2.0) H 03/27/22 05:08 Jax Test Pos 03/27/22 05:08 A-a O2 Gradient 8.3 mmHg (5-10) 03/27/22 05:08 Hematocrit 22.9 % (42-52) L 03/27/22 05:08 Hgb O2 Saturation 91.7 % (95-100) L 03/27/22 05:08 Carboxyhemoglobin 1.4 %THgb (0.4-20.1) 03/27/22 05:08 Methemoglobin 1.0 % (0.4-1.5) 03/27/22 05:08 Total Hemoglobin 7.5 g/dL (14-18) L 03/27/22 05:08 Sodium 142.0 mmol/L (131-143) 03/27/22 05:08 Potassium 3.1 mmol/L (3.5-5.0) L 03/27/22 05:08 Glucose 203.0 mg/dL (70-115) H 03/27/22 05:08 Ionized Calcium 1.0 mmol/L (1.1-1.4) L 03/27/22 05:08 O2 Delivery Device Bipap 03/27/22 05:08 O2 Liters/Min 3.5 % 03/26/22 04:44 FiO2 30.0 % 03/27/22 05:08 Tidal Volume 0.50 03/20/22 04:00 PEEP 10.0 cmH20 03/27/22 05:08 Transition Assistant ID [email or web address] 03/27/22 05:08 Sodium 139 mmol/L (136-145) 04/06/22 04:47 Potassium 3.8 mmol/L (3.5-5.1) 04/06/22 04:47 Chloride 95 mmol/L (98-107) L 04/06/22 04:47 Carbon Dioxide 36 mmol/L (22-29) H 04/06/22 04:47 Anion Gap 11.8 (5-19) 04/06/22 04:47 BUN 48 mg/dL (8-23) H 04/06/22 04:47 Creatinine 3.1 mg/dL (0.7-1.2) H 04/06/22 04:47 GFR Calculation 20.5 mL/min (90-130) L 04/06/22 04:47 Glucose 226 mg/dL (65-115) H 04/06/22 04:47 POC Glucose 246 mg/dL (70-110) H 04/06/22 06:19 Calculated Osmolality 308 mOsm/kg (285-295) H 04/06/22 04:47 Lactic Acid 1.7 mmol/L (0.5-2.2) 03/19/22 14:40 Calcium 9.0 mg/dL (8.5-10.5) 04/06/22 04:47 Phosphorus 3.9 mg/dL (2.5-4.5) 04/04/22 04:48 Magnesium 1.8 mg/dL (1.7-2.3) 04/04/22 04:48 Iron 65 ug/dL (59-158) 03/26/22 05:22 TIBC 172 mcg/dl 03/26/22 05:22 % Saturation 37.7 % (20-50) 03/26/22 05:22 Unsat Iron Binding 107 ug/dL (112-347) L 03/26/22 05:22 Ferritin 147 ng/mL (30-400) 03/26/22 05:22 Total Bilirubin 0.2 mg/dL (0.15-1.2) 04/04/22 04:48 AST 19 U/L (0-40) 04/04/22 04:48 ALT 21 U/L (0-41) 04/04/22 04:48 Alkaline Phosphatase 50 U/L (40-130) 04/04/22 04:48 Troponin T Baseline 35 ng/L (0-15) H 03/19/22 14:40 Troponin T 120 Minute 35.26 ng/L (0-15) H 03/19/22 16:30 Delta Troponin T 0.26 ABS# (0-10) 03/19/22 16:30 Troponin T Hi Sens 6Hr 38.25 ng/L (0-15) H 03/19/22 20:37 Troponin T Hi Sens 6Hr Delta 3.25 ng/L (0-12) 03/19/22 20:37 C-Reactive Protein 6.8 mg/L (0.0-4.9) H 04/04/22 04:48 NT-Pro-B Natriuret Pep 5474 pg/mL (0-125) H 03/27/22 05:17 Total Protein 6.0 g/dL (6.6-8.7) L 04/04/22 04:48 Albumin 3.4 g/dL (3.5-5.2) L 04/04/22 04:48 Globulin 2.6 g/dL (1.3-4.6) 04/04/22 04:48 Procalcitonin 0.20 ng/mL (0-0.5) 04/04/22 04:48 Urine Color Yellow (Yellow) 03/19/22 14:30 Urine Appearance Clear (CLEAR) 03/19/22 14:30 Urine pH 5 (5-7) 03/19/22 14:30 Ur Specific [place] 1.020 (1.005-1.030) 03/19/22 14:30 Urine Protein 1+ (Negative) H 03/19/22 14:30 Urine Glucose (UA) 1+ (Normal) H 03/19/22 14:30 Urine Ketones Negative (Negative) 03/19/22 14:30 Urine Blood Neg (Negative) 03/19/22 14:30 Urine Nitrate Negative (Negative) 03/19/22 14:30 Urine Bilirubin Neg (Negative) 03/19/22 14:30 Urine Urobilinogen Neg mg/dL (Negative) 03/19/22 14:30 Ur Leukocyte Esterase Negative (Negative) 03/19/22 14:30 Urine RBC None /hpf (0-2) 03/19/22 14:30 Urine WBC None /hpf (0-5) 03/19/22 14:30 Ur Squamous Epith Cells None /hpf (0-5) 03/19/22 14:30 Amorphous Sediment 1+ /hpf 03/19/22 14:30 Urine Bacteria None /hpf (NONE) 03/19/22 14:30 Ur Random Sodium 31 mmol/L 03/25/22 15:30 Urine Total Volume 525 mL 03/24/22 19:20 Urine Creatinine 202 mg/dL (39-259) 03/25/22 15:30 Ur Total Protein 24 Hr 336.5 mg/24hr (0-150) H 03/24/22 19:20 Urine Total Protein 64.1 mg/dL (0-150) 03/24/22 19:20 Nasal Influ A H1 2008 PCR Not detected (NOT DETECT) 03/19/22 15:44 Vancomycin Trough 21.0 ug/mL (10-15) H 03/22/22 07:25 Adenovirus (PCR) Not detected (NOT DETECT) 03/19/22 15:44 C. pneumoniae DNA (PCR) Not detected (NOT DETECT) 03/19/22 15:44 Coronavirus 229E (PCR) Cancelled 03/19/22 15:44 Coronavirus 229E (PCR) Not detected (NOT DETECT) 03/19/22 15:44 Human Metapneumovir PCR Not detected (NOT DETECT) 03/19/22 15:44 Influenza A (H1) PCR Not detected (NOT DETECT) 03/19/22 15:44 Influenza A (H3) PCR Not detected (NOT DETECT) 03/19/22 15:44 Influenza Type A (PCR) Not detected (NOT DETECT) 03/19/22 15:44 Influenza Type B (PCR) Not detected (NOT DETECT) 03/19/22 15:44 M. pneumoniae (PCR) Not detected (NOT DETECT) 03/19/22 15:44 Parainfluenza 1 (PCR) Not detected (NOT DETECT) 03/19/22 15:44 Parainfluenza 2 (PCR) Not detected (NOT DETECT) 03/19/22 15:44 Parainfluenza 3 (PCR) Not detected (NOT DETECT) 03/19/22 15:44 Parainfluenza 4 (PCR) Not detected (NOT DETECT) 03/19/22 15:44 RSV Type A (PCR) Not detected (NOT DETECT) 03/19/22 15:44 RSV Type B (PCR) Not detected (NOT DETECT) 03/19/22 15:44 Entero/Rhino (PCR) Not detected (NOT DETECT) 03/19/22 15:44 SARS-CoV-2 (PCR) Cancelled 03/19/22 15:44 SARS-CoV-2 (PCR) Not detected (NOT DETECT) 03/19/22 15:44 Vitals Last Vital Signs Temp 98.8 F 04/06/22 07:41 Pulse 80 04/06/22 08:39 Resp 18 04/06/22 08:39 BP 114/63 04/06/22 07:41 Pulse Ox 96 04/06/22 08:39 O2 Del Method 04/06/22 08:39 O2 Flow Rate 4 04/06/22 08:39 FiO2 30 03/31/22 03:47 Discharge Plan Discharge Patient Disposition: Home Condition: Stable Prescriptions: New clonazepam 0.5 mg Tablet 0.25 mg PO BEDTIME PRN (Reason: anxiety) 8 Days Qty: 4 0RF benzonatate 100 mg Capsule 100 mg PO TID PRN (Reason: Cough) 7 Days Qty: 21 0RF Eliquis 5 mg Tablet 5 mg PO BID@0900,2100 30 Days Qty: 60 0RF diltiazem HCl [Cardizem CD] 120 mg capsule,extended release 24hr 120 mg PO DAILY 30 Days Qty: 30 0RF furosemide 40 mg Tablet 80 mg PO BID@08,16 30 Days Qty: 120 0RF tamsulosin 0.4 mg Capsule 0.4 mg PO DAILY 30 Days Qty: 30 0RF potassium chloride [Klor-Con M20] 20 mEq Tablet,Er Particles/Crystals 20 meq PO BIDWM 30 Days Qty: 60 0RF insulin lispro [Humalog KwikPen Insulin] 100 unit/mL insulin pen See Rx Instructions .ROUTE .COMPLEX MDD 45 Qty: 15 0RF Rx Instructions: Inject subcut, 3 tabs daily, after meals, based on sliding scale provided Continued multivitamin Tablet 1 tab PO DAILY (DME) Dexcom G6 [employer] Misc See Rx Instructions .Route Qty: 1 0RF Rx Instructions: As directed ([facility]) Dexcom G6 Sensor Device See Rx Instructions .Route Qty: 3 3RF Rx Instructions: Check BS 4 times a day. Change every 10 days. (DME) Dexcom G6 Transmitter Device See Rx Instructions .Route Qty: 1 3RF Rx Instructions: Change every 90 days. (DME) concentrator and homefill oxygen system See Rx Instructions .Route .MEDSUPPLY Qty: 1 0RF Rx Instructions: As directed ([facility]) pen needle, diabetic [Comfort EZ Pen [place]] 29 gauge x 1/2 needle See Rx Instructions .ROUTE .MEDSUPPLY Qty: 100 3RF Rx Instructions: one daily (DME) blood sugar diagnostic Strip See Rx Instructions .ROUTE .MEDSUPPLY Qty: 100 0RF Rx Instructions: twice daily (DME) blood-glucose meter [OneTouch Ultra2 Meter] Kit See Rx Instructions .ROUTE .MEDSUPPLY Qty: 1 0RF Rx Instructions: As directed ([facility]) lancets [OneTouch UltraSoft Lancets] Misc See Rx Instructions .ROUTE .MEDSUPPLY Qty: 100 0RF Rx Instructions: As directed Eliquis 5 mg tablet 5 mg PO BID Qty: 180 0RF Trelegy Ellipta 200-62.5-25 mcg blister with device 1 inh INHALATION DAILY albuterol sulfate [ProAir HFA] 90 mcg/actuation Hfa Aerosol Inhaler 2 puff INHALATION Q6H PRN (Reason: Shortness Of Breath) cholecalciferol (vitamin D3) [Vitamin D3] 50 mcg (2,000 unit) Tablet 100 mcg PO DAILY atorvastatin 80 mg tablet 80 mg PO QAM albuterol sulfate 2.5 mg /3 mL (0.083 %) solution for nebulization 2.5 mg INHALATION QID PRN (Reason: shortness of breath or wheezing) Qty: 75 4RF cyanocobalamin (vitamin B-12) [Vitamin B-12] 100 mcg Tablet 100 mcg PO DAILY ascorbic acid (vitamin C) [Vitamin C] 500 mg Tablet Extended Release 500 mg PO DAILY duloxetine 60 mg capsule,delayed release(DR/EC) 60 mg PO BEDTIME acetylcysteine 200 mg/mL (20 %) Solution 100 mg inhalation Q4H.RESPIRATORY PRN (Reason: Shortness Of Breath) Qty: 30 0RF amiodarone [Pacerone] 200 mg Tablet 200 mg PO DAILY Qty: 30 0RF ferrous gluconate 324 mg (37.5 mg iron) Tablet 324 mg PO BIDWM Qty: 60 0RF Changed Toujeo Max U-300 SoloStar 300 unit/mL (3 mL) insulin pen See Rx Instructions .ROUTE .COMPLEX Qty: 3 0RF Rx Instructions: 20 unit subcutaneously in the morning and 10 units in the evening Discontinued metformin 1,000 mg tablet 1,000 mg PO BID Qty: 180 0RF metoprolol tartrate 100 mg tablet 100 mg PO BID Qty: 60 3RF isosorbide mononitrate 30 mg Tablet Extended Release 24 Hr 15 mg PO DAILY spironolactone 25 mg Tablet 25 mg PO DAILY lisinopril 10 mg Tablet 10 mg PO DAILY Lasix 40 mg tablet 40 mg PO QAM potassium chloride 20 mEq tablet extended release 10 meq PO BEDTIME Discharge Orders: Discharge Order (Routine); Ordered 04/06/22 Ordered By: Garret Stack Other Ambulatory Orders: DME: Non-Invasive Vent (Order) Location: None Selected Ordered By: Akil Santana DME: Wheelchair (Order) Location: None Selected Ordered By: Garret Stack [place] [facility] [place] Mason Giles MD [Primary Care Provider] - 4-7 days DatarLoc MD [Physician] - 2 weeks Gm Mathis MD [Physician] - 1 month Franky Hoffmann MD [Physician] - 1 week Arias Avina MD [Physician] - 1 month Discharge Diet: Cardiac Discharge Activity: Resume usual activity Patient Instructions: Opioid Safety Activity Restrictions/Additional Instructions: - Please follow-up with your primary care provider in 1 week -Your kidney function on discharge is 3.1, have your primary care provider recheck your kidney function -Please take Lasix 80 twice daily with potassium replacement therapy -You continue to have edema, however it will be a slow process to remove the edema, continue to take Lasix with potassium replacement -Limit fluid intake between 1 to 1.5 L a day -Please can be compliant with your noninvasive vent -Please use Klonopin sparingly at bedtime for anxiety -Please follow-up with [employer] [employer] in 2 weeks -I am discharging you with a Lord catheter placed due to urinary retention, please follow-up with urology in 1 week for removal -Unhappy follow-up with cardiology 1 month for atrial fibrillation -If you develop chest pain or shortness of breath or palpitations go to the emergency room -For your Blankao I have decreased her dose to 20 units in the morning, 10 units in the evening -Based on her kidney function monitor blood sugars closely, you might develop hypoglycemia if so call your primary care or quarantine inspector -Follow-up with endocrinology in 1 month -Please monitor your blood sugars closely -Monitor your blood sugars 3 times daily as after meals -Please record your blood sugars, and a blood sugar log -For your NovoLog -Please inject humalog insulin (short acting) blood sugar after meals based on sliding scale provided -Do not inject insulin if you do not eat as hypoglycemia kills -This is a humalog sliding scale -Insulin sliding ?fingerstick? Insulin ?141-180?2 units/sq 181-220?4 units/sq ?221-260?6 units/sq ?261-300?8 units/sq ?301-350 10 units/sq ?351-400 12 units/sq > 400? 14 units/sq -If your blood sugar is greater than 500 go to the emergency room -If your blood sugar is less than 60 or at anytime you feel lightheaded or dizzy or diaphoretic or have chest palpitations check your blood sugar, and eat a hard candy or drink orange juice and go immediately to the emergency room -Remember hypoglycemia kills, so if his blood sugar is less than 60 we have to increase it by taking in a sugary meal such as a hard candy or orange juice and go to the emergency room -If you have any questions please call us where here to help Discharge Attestations Time Spent in Discharge Care*: greater than 30 min Status at Discharge: Cognitive status at discharge: cognitively intact , Behavioral status at discharge: cooperative , Quality Metrics Clinical Quality Measures [ No reported AMI, CVA or VTE this stay] Coding Level of Care Code Acute Chg FW DC note Diagnoses JAMES (acute kidney injury) N17.9
[2022-04-06 11:12] LABS: Glucose Point of Care 262 mg/dL (70-110)
--- NOTE | 2022-04-06 18:15 | PC.NURSE ---
1535 catheter care and maintaince given to patients who asked questions and needed reinforcement, after 4 demos she returned demo. Discharge instructions gived to who voiced understanding.
--- NOTE | 2022-04-06 18:18 | PC.NURSE ---
1630 Patient discharged to home with family per personal wheel chair to private car. with home 02 patient in stable condition.
== END 2022-04-06 16:30 | disposition home or self-care (01) | DRG 208 ==
LOC: ER 16:46 → ICU 16:55 → MEDSURG 03-23 16:30
PROVIDERS: Hospitalist; Internal Medicine; Internal Medicine Nephrology; Admitting Provider Student in an Organized Health Care Education/Training Program; Emergency Provider Family Medicine; PCP Family Medicine; Visit Provider Family Medicine
DX: J44.1 Chronic obstructive pulmonary disease with (acute) exacerbation (principal); I50.33 Acute on chronic diastolic (congestive) heart failure; J96.21 Acute and chronic respiratory failure with hypoxia; J96.22 Acute and chronic respiratory failure with hypercapnia; J18.9 Pneumonia, unspecified organism; Z68.43 Body mass index [BMI] 50.0-59.9, adult; I48.11 Longstanding persistent atrial fibrillation; I13.0 Hypertensive heart and chronic kidney disease with heart failure and stage 1 through stage 4 chronic kidney disease, or unspecified chronic kidney disease; E87.1 Hypo-osmolality and hyponatremia; N17.9 Acute kidney failure, unspecified; J44.0 Chronic obstructive pulmonary disease with (acute) lower respiratory infection; E66.01 Morbid (severe) obesity due to excess calories; N18.30 Chronic kidney disease, stage 3 unspecified; E11.22 Type 2 diabetes mellitus with diabetic chronic kidney disease; E11.40 Type 2 diabetes mellitus with diabetic neuropathy, unspecified; E11.65 Type 2 diabetes mellitus with hyperglycemia; G47.33 Obstructive sleep apnea (adult) (pediatric); Z99.89 Dependence on other enabling machines and devices; Z91.199 Patient's noncompliance with other medical treatment and regimen due to unspecified reason; E78.5 Hyperlipidemia, unspecified; Z99.81 Dependence on supplemental oxygen; Z87.891 Personal history of nicotine dependence; E87.5 Hyperkalemia; Z79.51 Long term (current) use of inhaled steroids; Z79.01 Long term (current) use of anticoagulants; F41.9 Anxiety disorder, unspecified; R33.9 Retention of urine, unspecified; R19.7 Diarrhea, unspecified; E87.6 Hypokalemia; D63.1 Anemia in chronic kidney disease; Z66 Do not resuscitate; I95.9 Hypotension, unspecified; R45.1 Restlessness and agitation
CPT/HCPCS: 12345; 36415; 36416; 36600; 51702; 51798; 71045; 74018; 76770; 80048; 80051; 80053; 80069; 80202; 81001; 82330; 82575; 82728; 82803; 82805; 82962; 83540; 83550; 83605; 83735; 83880; 84100; 84145; 84156; 84300; 84484; 85025; 86140; 86403; 87040; 87070; 87077; 87186; 87205; 87449; 87486; 87493; 87581; 87633; 93005; 94002; 94003; 94640; 94660; 94762; 94799; 96365; 96372; 96375; 97110; 97116; 97161; 97165; 97530; 97535; 99285; C9113; J0610; J0692; J1630; J1650; J1815; J1940; J1956; J2704; J2930; J3010; J3370; J3490; J7040; J7050; J7060; J7512; J7608; J7626; P9047; Q3014